=== PATIENT | female | born 1940 | race Hispanic/Latino ===

== ENCOUNTER 2016-12-15 19:21 | Inpatient (IN) | payer MEDICARE, MEDICAID ==
[2016-12-15 19:29] VITALS: BMI 27.4
[2016-12-15] MEDS ORDERED: Sodium Chloride 0.9% 1,000 ML IV STA ×2 (19:58→23:38)
--- NOTE | 2016-12-15 20:06 | ED PDOC ---
Arrival/HPI - General Chief Complaint: GI Problem Time Seen by Provider: 12/15/16 19:40 Historian: Patient - History of Present Illness Narrative History of Present Illness (Text): 12/15/16 20:01 76 year old female whose past medical history includes coronary artery disease s /p CABG, COPD, hypertension presents to the emergency department with complaint of generalized malaise for the past few days, nausea, vomiting, and diarrhea. Patient states she began experiencing some chills,subjective fever and flu-like symptoms 5 days ago, was placed on Zithromax by PMD. Pt. stopped taking the antibiotics stating she could not tolerate them. Patient presents now for further evaluation. Denies any chest pain or shortness of breath or abdominal pain. No urinary complaints. Time/Duration: < week Symptom Onset: Gradual Symptom Course: Unchanged Past Medical History - Provider Review Nursing Documentation Reviewed: Yes - Infectious Disease Hx of Infectious Diseases: None - Reproductive Menopause: Yes - Cardiac Hx Cardiac Disorders: Yes Hx Hypertension: Yes Hx Peripheral Vascular Disease: Yes (variscosities to right foot) Other/Comment: pci, + stress test, triple bypass surgery - Pulmonary Hx Asthma: Yes Hx Chronic Obstructive Pulmonary Disease (COPD): Yes Hx Emphysema: Yes Hx Pneumonia: Yes - Neurological Hx Paralysis: No - HEENT Hx Cataracts: Yes (cataract sx both eyes 20 yrs ago) - Hematological/Oncological Hx Blood Transfusions: No Hx Blood Transfusion Reaction: No - Musculoskeletal/Rheumatological Hx Back Pain: Yes Hx Falls: No Other/Comment: lumbar herniation - Gastrointestinal Hx Gastroesophageal Reflux: Yes Other/Comment: colon polyps - Genitourinary/Gynecological Hx Genitourinary Disorders: No - Psychiatric Hx Emotional Abuse: No Hx Physical Abuse: No Hx Substance Use: No - Surgical History Hx Hysterectomy: Yes (pt was 38 yrs old) Other/Comment: Triple Bypass surgery - Anesthesia Hx Anesthesia: Yes Hx Anesthesia Reactions: No - Suicidal Assessment Feels Threatened In Home Enviroment: No Family/Social History - Physician Review Nursing Documentation Reviewed: Yes Family/Social History: Unknown Family HX Smoking Status: Former Smoker Hx Alcohol Use: No Hx Substance Use: No Hx Substance Use Treatment: No Allergies/Home Meds Allergies/Adverse Reactions: Allergies aspirin Adverse Reaction (Verified 12/15/16 19:30) WHEEZING Home Medications: Home Meds Medication Instructions Recorded Confirmed Albuterol Sulfate [Proair Hfa] 0.09 mg IH PRN PRN 11/08/12 12/15/16 Arformoterol Tartrate [Brovana] 1 alfie IH BID 11/08/12 12/15/16 Atorvastatin Calcium [Lipitor] 20 mg PO DAILY 11/08/12 12/15/16 Beclomethasone Dipropionate [Qvar] 1 puff IH BID 11/08/12 12/15/16 Dexlansoprazole [Dexilant] 60 mg PO DAILY 11/08/12 12/15/16 Escitalopram Oxalate [Lexapro] 10 mg PO DAILY 11/08/12 12/15/16 Hydrochlorothiazide/Valsarta 1 tab PO DAILY 11/15/12 12/15/16 [Diovan Hct 12.5 mg-80 mg] Tiotropium [Spiriva] 18 mcg IH DAILY 11/15/12 12/15/16 Albuterol HFA [Ventolin HFA 90 1 puff IH PRN PRN 12/15/16 12/15/16 mcg/actuation (8 g)] Beclomethasone Dipropionate [Qvar 1 puff IH PRN PRN 12/15/16 12/15/16 40 mcg] Review of Systems - Physician Review All systems were reviewed & negative as marked: Yes - Review of Systems Constitutional: Other (Generalized malaise, chills). absent: Fevers ENT: Other (Flu-like symptoms) Respiratory: absent: SOB Cardiovascular: absent: Chest Pain Gastrointestinal: absent: Abdominal Pain Genitourinary Female: absent: Dysuria, Frequency, Hematuria Physical Exam Vital Signs Reviewed: Yes Vital Signs Temp Pulse Resp BP Pulse Ox 12/15/16 19:30 98.7 F 80 19 110/68 92 L Temperature: Afebrile Blood Pressure: Normal Pulse: Regular Respiratory Rate: Normal Appearance: Positive for: Well-Appearing, Non-Toxic, Comfortable Pain Distress: None Mental Status: Positive for: Alert and Oriented X 3 - Systems Exam Head: Present: Atraumatic, Normocephalic Pupils: Present: PERRL Extroacular Muscles: Present: EOMI Conjunctiva: Present: Normal Mouth: Present: Moist Mucous Membranes Pharnyx: Present: Normal. No: ERYTHEMA, EXUDATE Nose (External): Present: Atraumatic Nose (Internal): Present: Normal Inspection Neck: Present: Normal Range of Motion, Other (Supple) Respiratory/Chest: Present: Clear to Auscultation, Good Air Exchange. No: Respiratory Distress, Accessory Muscle Use Cardiovascular: Present: Regular Rate and Rhythm, Normal S1, S2. No: Murmurs Abdomen: Present: Normal Bowel Sounds. No: Tenderness, Distention, Peritoneal Signs Back: Present: Normal Inspection Upper Extremity: Present: Normal Inspection. No: Cyanosis, Edema Lower Extremity: Present: Normal Inspection. No: Edema Neurological: Present: GCS=15, CN II-XII Intact, Speech Normal Skin: Present: Warm, Dry, Normal Color. No: Rashes Psychiatric: Present: Alert, Oriented x 3, Normal Insight, Normal Concentration Medical Decision Making ED Course and Treatment: Impression: 76 year old female whose past medical history includes coronary artery disease s/p CABG, COPD, hypertension presents to the emergency department with complaint of generalized malaise for the past few days, nausea, vomiting, and diarrhea. Plan: -- EKG, Chest X-ray -- Pepcid, Reglan -- IV fluids -- Labs -- Reassess and disposition Progress Notes: 12/15/16 21:25 Reviewed radiology, Chest X-ray shows right-sided infiltrate. 12/15/16 22:[address] Mullen, who is aware and agrees with plan. Accepts pt in to his service. Pt will be admitted to [facility] for pneumonia and gastroenteritis. Requests Dr. Evans on consult. - Lab Interpretations Lab Results: 12/15/16 20:30 12/15/16 20:30 Lab Results 12/15/16 20:30: WBC 5.5, RBC 4.12, Hgb 12.3, Hct 36.5, MCV 88.6, MCH 29.9, MCHC 33.7, RDW 14.7 H, Plt Count 166, MPV 10.0 12/15/16 20:30: Sodium 135, Potassium 3.3 L, Chloride 94 L, Carbon Dioxide 29, Anion Gap 15, BUN 19, Creatinine 1.1, Est GFR ( Amer) 59, Est GFR (Non- Af Amer) 48, Random Glucose 106, Calcium 9.1, Total Bilirubin 1.2, AST 46 H, ALT 41, Alkaline Phosphatase 72, Total Protein 7.3, Albumin 3.8, Globulin 3.5, Albumin/Globulin Ratio 1.1, Lipase 169 12/15/16 20:30: Influenza Typ A,B (EIA) Negative for flu a/b I have reviewed the lab results: Yes - RAD Interpretation Radiology Orders: 12/15/16 19:57 CHEST PORTABLE [RAD] Stat Scientific Recruiter: ED Physician - EKG Interpretation EKG Interpretation (Text): EKG shows NSR at 63 BPM with right bundle branch block, LAHB, nonspecific ST wave changes, unchanged from previous October 2012. Interpreted by me. Interpreted by ED Physician: Yes Type: 12 lead EKG - Medication Orders Current Medication Orders: Sodium Chloride (Sodium Chloride 0.9%) 1,000 mls @ 100 mls/hr IV .Q10H STA Stop: 12/16/16 09:37 Ondansetron HCl (Zofran Inj) 4 mg IVP Q6H PRN PRN Reason: Nausea/Vomiting Stop: 12/16/16 11:00 Discontinued Medications Famotidine (Pepcid) 20 mg IVP STAT STA Stop: 12/15/16 19:59 Last Admin: 12/15/16 20:43 Dose: 20 mg Sodium Chloride (Sodium Chloride 0.9%) 1,000 mls @ 999 mls/hr IV .Q1H1M STA Stop: 12/15/16 20:58 Last Admin: 12/15/16 20:42 Dose: 999 mls/hr Ceftriaxone Sodium (Rocephin 1 Gram Ivpb) 1 gm in 100 mls @ 200 mls/hr IV ONCE STA PRN Reason: Protocol Stop: 12/15/16 21:56 Last Admin: 12/15/16 23:32 Dose: 200 mls/hr Azithromycin (Zithromax 500mg In Ns) 500 mg in 250 mls @ 166.667 mls/hr IV STAT STA PRN Reason: Protocol Stop: 12/15/16 22:56 Metoclopramide HCl (Reglan) 10 mg IVP ONCE ONE Stop: 12/15/16 19:59 Last Admin: 12/15/16 20:43 Dose: 10 mg Potassium Chloride (K-Dur 20 Meq Er Tab) 20 meq PO STAT STA Stop: 12/15/16 21:29 Last Admin: 12/15/16 23:32 Dose: 20 meq - Scribe Statement The provider has reviewed the documentation as recorded by the Gonzalez Tinajero Provider Scribe Attestation: All medical record entries made by the Gonzalez were at my direction and personally dictated by me. I have reviewed the chart and agree that the record accurately reflects my personal performance of the history, physical exam, medical decision making, and the department course for this patient. I have also personally directed, reviewed, and agree with the discharge instructions and disposition. Disposition/Present on Arrival - Present on Arrival Any Indicators Present on Arrival: No History of DVT/PE: No History of Uncontrolled Diabetes: No Urinary Catheter: No (inserted in or) History of Decub. Ulcer: No History Surgical Site Infection Following: None - Disposition Have Diagnosis and Disposition been Completed?: Yes Diagnosis: Pneumonia, Gastroenteritis Disposition: HOSPITALIZED Disposition Time: 23:34 Patient Plan: Admission Patient Problems: Current Active Problems Problem Status Onset Gastroenteritis Acute Pneumonia Acute Condition: STABLE Referrals: Jassi Denise MD [Primary Care Provider] - Follow up with primary
[2016-12-15 20:40] LABS: HEMATOCRIT 36.5 % (36.0-48.0); MEAN CELL VOLUME 88.6 fL (80.0-105.0); MEAN CORPUSCULAR HEMOGLOBIN 29.9 pg (25.0-35.0); MEAN CORPUSCULAR HGB CONC 33.7 g/dl (31.0-37.0); RED CELL DISTRIBUTION WIDTH 14.7 % (11.5-14.5); WHITE BLOOD COUNT 5.5 10^3/ul (4.5-11.0)
[2016-12-15 20:50] LABS: ALB/GLOB RATIO 1.1 (1.1-1.8); BILIRUBIN,TOTAL 1.2 mg/dL (0.2-1.3); CALCIUM 9.1 mg/dL (8.4-10.5); POTASSIUM 3.3 mmol/L (3.6-5.0); TOTAL PROTEIN 7.3 g/dL (5.8-8.3)
[2016-12-15] MEDS ORDERED: cefTRIAXone 1 gm 1 GM/100 ML BAG IV STA (21:27)
[2016-12-15] MEDS ORDERED: Azithromycin 500MG/NS 250ml 500 MG/250 ML BAG IV STA (21:27)
[2016-12-15] MEDS ORDERED: Potassium Chloride 20 mEq ER Tab PO STA (21:28)
[2016-12-16] MEDS ORDERED: Albuterol-Ipratrop 3 mg / 0.5 (3 ml) UD ONE (01:30)
--- NOTE | 2016-12-16 07:26 | RAD ---
HISTORY: weakness COMPARISON: 11/17/2016 FINDINGS: LUNGS: There is a dense infiltrate in the right upper lobe PLEURA: No significant pleural effusion identified, no pneumothorax apparent. CARDIOVASCULAR: Normal. OSSEOUS STRUCTURES: No significant abnormalities. VISUALIZED UPPER ABDOMEN: Normal. OTHER FINDINGS: None. IMPRESSION: Right upper lobe pneumonia
[2016-12-16] MEDS ORDERED: Albuterol-Ipratrop 3 mg / 0.5 (3 ml) UD IH SCH (08:00)
--- NOTE | 2016-12-16 15:06 | CARD ---
APPROVED REPORT EKG Measurement Heart [id number] IN 144P [id number] <Conclusion> Normal sinus rhythm with sinus arrhythmia Right bundle branch block Left anterior fascicular block Bifascicular block T wave abnormality, consider lateral ischemia Prolonger Qt interval Abnormal ECG
--- NOTE | 2016-12-16 18:37 | CON ---
DATE: 12/16/2016 LOCATION: In 573, bed 2, [facility]. The patient was seen earlier this morning. REASON FOR CONSULTATION: Pneumonia. HISTORY OF PRESENT ILLNESS: We have a 76-year-old female with past medical history of COPD, coronary artery disease, status post coronary artery bypass graft, comes in complaining of nausea, as well as feeling of fatigue for the past 4-5 days, worsening yesterday, associated with subjective chills, bu t no fever. The patient was not complaining of excessive cough, but has intermittent mild cough whic h is nonproductive. The patient denies being on antibiotics in the past few months, has not been hos pitalized recently, either. The patient denies headache or dizziness. No blurring of vision. No ch est pain. Has mild shortness of breath. No abdominal pain. No diarrhea. No hematuria. No dysuria . In the ED, the patient had a chest x-ray which showed a possible infiltrate and infectious disease co nsult is requested to further evaluate and manage. REVIEW OF SYSTEMS: Is as per history of present illness. PAST MEDICAL HISTORY: Is as per history of present illness. FAMILY MEDICAL HISTORY: Is noncontributory. PERSONAL AND SOCIAL HISTORY: The patient denies alcohol abuse or illicit drug use. OBJECTIVE: VITAL SIGNS: The patient is currently afebrile. Blood pressure 135/78, heart rate of 88, respirator y rate of 20. HEAD AND NECK: Normocephalic, atraumatic. No meningismus present. No cervical lymphadenopathy pres ent. LUNGS: Decreased breath sounds bilaterally. HEART: S1 and S2 are normal. ABDOMEN: Soft, nontender, nondistended. LABORATORY DATA: Unfortunately, unable to review the labs on the patient because of the downed [email or web address] system. ASSESSMENT: We have a 76-year-old female with past medical history of chronic obstructive pulmonary disease, coronary artery disease, status post coronary artery bypass graft, presenting with probable right lower lobe community acquired pneumonia. PLAN: We have started the patient on Rocephin and doxycycline pending sputum cultures, blood culture s. We will also order urine Legionella antigen, and will make further recommendations based on the r esults. We may also consider ordering a procalcitonin for this patient. Jett Levine M.D. cc: [id number] TT: 12/16/2016 18:37:20 [facility] # [id number] Dictation # [id number] dn
[2016-12-17] MEDS ORDERED: Albuterol-Ipratrop 3 mg / 0.5 (3 ml) UD IH PRN (07:43)
[2016-12-17 08:10] LABS: HEMATOCRIT 34.6 % (36.0-48.0); MEAN CELL VOLUME 88.9 fL (80.0-105.0); MEAN CORPUSCULAR HEMOGLOBIN 29.6 pg (25.0-35.0); MEAN CORPUSCULAR HGB CONC 33.2 g/dl (31.0-37.0); MEAN PLATELET VOLUME 10.3 fl (7.0-11.0); RED CELL DISTRIBUTION WIDTH 14.9 % (11.5-14.5); WHITE BLOOD COUNT 6.6 10^3/ul (4.5-11.0)
[2016-12-17 08:23] LABS: BLOOD UREA NITROGEN 13 mg/dL (7-21); CALCIUM 9.1 mg/dL (8.4-10.5); CARBON DIOXIDE 29 mmol/L (21-33); CHLORIDE 97 mmol/L (98-107); GFR AFRICAN-AMERICAN > 60; GLUCOSE,RANDOM 91 mg/dL (70-110); POTASSIUM 3.5 mmol/L (3.6-5.0); SODIUM 135 mmol/L (132-148)
--- NOTE | 2016-12-17 08:38 | PN ---
DATE: 12/17/2016 SUBJECTIVE: The patient has no complaints of any chest pain or shortness of breath, no headaches. S he was seen by me yesterday and was not able to write a note because of the computers being down at [facility]. PHYSICAL EXAMINATION: VITAL SIGNS: Temperature is 100.5, pulse is 72, blood pressure 102/33, but may not be accurate. Res pirations 18. GENERAL: The patient comfortable, in no acute distress. HEENT: Anicteric sclerae. Moist mucosa. NECK: No JVD or adenopathy. CARDIAC: S1/S2. No murmurs. No rubs. Regular. RESPIRATORY: Clear to auscultation bilaterally. No wheezes, rales, or rhonchi. Good air entry. ABDOMEN: Bowel sounds are positive, soft, nontender, and nondistended. EXTREMITIES: No edema. Has 1+ pulses. LABS: Creatinine is 1.3. ASSESSMENT: 1. Community-acquired pneumonia. 2. Dyslipidemia. 3. Hypertension. 4. Chronic obstructive pulmonary disease. PLAN: The patient is currently comfortable. He is going to be on doxycycline and Rocephin for antib iotics. The patient is going to continue with current regimen. She says she is feeling a bit better . She is not having any nausea. She is on DuoNeb treatments. Michael Mullen MD cc: [id number] TT: 12/17/2016 08:37:02 Confirmation # [id number] Dictation # [id number] [employer]
[2016-12-17] MEDS: cefTRIAXone 1 gm in NS 100ml IVPB SCH (09:20)
[2016-12-17] MEDS: Tiotropium 18 mcg Cap For Inhalation IH SCH ×2 (09:21→10:58)
--- NOTE | 2016-12-17 09:52 | HP ---
This is a 76-year-old female who is coming into the hospital because of diarrhea and nausea. She had initially come to see me in the office about 5 days ago. The patient was having flu-like symptoms o f fever. She was given antibiotics by me and had nausea and diarrhea. I spoke to her on the phone a nd advised her to discontinue the azithromycin; it is most likely secondary to the antibiotics. She says that she continues to decline, so she came in for further evaluation. She says she feels weak. She has not been able to eat well. She has no headaches or dizziness. No fever. No weakness in th e arms or the legs. No back pain. REVIEW OF SYSTEMS: All other review of symptoms are within normal limits. She was having cough, con gestion. ALLERGIES: ASPIRIN. HOME MEDICATIONS: She is on ProAir, Brovana, Lipitor, QVAR, Dexilant, Lexapro, Diovan/hydrochlorothi azide, Spiriva, Ventolin, beclomethasone. PAST MEDICAL HISTORY: Dyslipidemia, hypertension, varicose veins, back pain, osteoarthritis. PAST SURGICAL HISTORY: Hysterectomy. SOCIAL HISTORY: She is a former smoker. She denies alcohol or drug use. FAMILY HISTORY: Noncontributory. PHYSICAL EXAMINATION: VITAL SIGNS: Temperature is 98.7, pulse of 80, blood pressure is 110/68, respirations 19, O2 saturat ion 92%. GENERAL: Patient lying in bed, flat, and in no apparent distress. HEAD AND NECK EXAM: Atraumatic, normocephalic. Conjunctivae are pink. Throat clear and mouth with moist mucosa. Oropharynx benign. EYES: Extraocular movements are intact. PERRLA. NECK: Supple. No JVD, thyromegaly, or adenopathy. No bruits. HEART: S1 and S2 regular rate and rhythm. No murmurs, rubs, or gallops. LUNGS: Clear to auscultation bilaterally. No wheezing rales or rhonchi appreciated. No retraction s on exam. ABDOMEN: Soft, nontender, nondistended. Bowel sounds are positive in all quadrants. No rebound. No hepatosplenomegaly. EXTREMITIES: No cyanosis, clubbing, or edema. NEURO: No facial asymmetry, tongue is midline, no uvula deviation. Power is 5/5 in upper extremity and 5/5 in lower extremity. Sensation is normal in upper extremity and lower extremity. PSYCH: Awake, alert, oriented x3. No anxiety or depression symptoms. Good insight. Normal affec t. : No CVA tenderness VASCULAR: 2+ pulses in carotid and pedal pulses. SKIN: No erythema or abnormal nodules noted. SPINE: Normal curvature. LYMPHADENOPATHY: No anterior cervical or posterior cervical adenopathy. No inguinal adenopathy. Chest x-ray shows right-sided infiltrate. LABORATORY DATA: White count 5.5, hemoglobin 12.3, potassium is 3.3, creatinine is 1.1. ASSESSMENT: 1. Community-acquired pneumonia, failed outpatient management. 2. Gastroenteritis secondary to antibiotics. 3. Hypertension. 4. Dyslipidemia. 5. Chronic obstructive pulmonary disease. PLAN: The patient is currently on losartan for hypertension. The patient has pneumonia, so she has been started on ceftriaxone for antibiotics. She was given IV fluids. She is being followed by infe ctious disease with Dr. Evans. I did speak to Dr. Levine yesterday. The patient is on Lexapro f or anxiety. She is on Lipitor for dyslipidemia. She is on a heart healthy diet. We will continue t o follow the patient. Michael Mullen MD cc: [id number] TT: 12/17/2016 09:47:17 12/17/2016 08:50:46
[2016-12-17] MEDS ORDERED: Arformoterol 15 mcg/2 ml Inh Sol IH SCH ×2 (10:00)
--- NOTE | 2016-12-17 10:38 | IP.NPCORE ---
Pneumonia Progress Notes - Oxygenation Assessment (REQUIRED) Oxygen Delivery Method: Room Air Date: 12/17/16 Documented P02: Yes - Blood Cultures (REQUIRED) Culture drawn: Yes Date:: 12/15/16 Time:: 23:47 - Initial Antibiotic Initial Antibiotic given within Four Hours:: Yes - Appropriate Antibiotic Appropriate Antibiotic within 24 hours of Admission:: Yes - Pneumonia Vaccine Pneumonia Vaccine: No (will be offered prior to discharge ) - Smoking Cessation Smoking Cessation counseling provided:: Yes Ex-Smoker (has not smoked in the last 12 months): No Current Smoker - smoking cessation education provided: No
[2016-12-17] MEDS: BECLOMETHASONE DIPROPIONATE IH SCH ×2 (13:39→17:15)
[2016-12-17] MEDS ORDERED: MethylPREDNISolone 40 mg Vial IVP ONE (18:35)
[2016-12-17] MEDS: Arformoterol 15 mcg/2 ml Inh Sol IH SCH (20:20)
--- NOTE | 2016-12-17 22:31 | CP.PCM.PN ---
Subjective - Date & Time of Evaluation Date of Evaluation: 12/17/16 Time of Evaluation: 10:35 - Subjective Subjective: Still having wheezing but breathing better, no nausea, no fevers overnight. Objective - Vital Signs/Intake and Output Vital Signs (last 24 hours): Temp Pulse Resp BP Pulse Ox 98.0 F 72 18 95/55 L 92 L 12/17/16 15:47 12/17/16 15:47 12/17/16 15:47 12/17/16 15:47 12/17/16 15:47 Intake and Output: 12/17/16 12/18/16 18:59 06:59 Intake Total 600 120 Balance 600 120 - Medications Medications: Current Medications Albuterol/Ipratropium (Duoneb 3 Mg/0.5 Mg (3 Ml) Ud) 3 ml IH TIDRESP PRN PRN Reason: Shortness of Breath Arformoterol Tartrate (Brovana) 15 mcg IH [id number] [facility] Last Admin: 12/17/16 20:20 Dose: 15 mcg Atorvastatin Calcium (Lipitor) 20 mg PO HS [facility] Doxycycline Hyclate (Doryx) 100 mg PO Q12 [facility] Last Admin: 12/17/16 09:20 Dose: 100 mg Escitalopram Oxalate (Lexapro) 10 mg PO DAILY [facility] Last Admin: 12/17/16 09:21 Dose: Not Given Hydrochlorothiazide (Microzide) 12.5 mg PO DAILY [facility] Last Admin: 12/17/16 09:20 Dose: 12.5 mg Ceftriaxone Sodium (Rocephin 1 Gram Ivpb) 1 gm in 100 mls @ 100 mls/hr IVPB DAILY [facility] Last Admin: 12/17/16 09:20 Dose: 100 mls/hr Losartan Potassium (Cozaar) 50 mg PO DAILY [facility] Last Admin: 12/17/16 09:21 Dose: 50 mg Methylprednisolone (Solu-Medrol) 40 mg IVP DAILY [facility] Non-Formulary Medication (Beclomethasone Dipropionate [Qvar]) 1 puff IH BID [facility] Last Admin: 12/17/16 17:15 Dose: Not Given Ondansetron HCl (Zofran Inj) 4 mg IVP Q4H PRN PRN Reason: Nausea/Vomiting Tiotropium [place] (Spiriva) 18 mcg IH DAILY [facility] Last Admin: 12/17/16 10:58 Dose: Not Given - Labs Labs: 12/17/16 06:29 12/17/16 07:20 - Constitutional Appears: Non-toxic, No Acute Distress - Head Exam Head Exam: NORMAL INSPECTION - ENT Exam ENT Exam: Mucous Membranes Moist - Neck Exam Neck Exam: absent: Lymphadenopathy, Meningismus - Respiratory Exam Respiratory Exam: Decreased Breath Sounds - Cardiovascular Exam Cardiovascular Exam: +S1, +S2 - GI/Abdominal Exam GI & Abdominal Exam: Soft. absent: Tenderness Assessment and Plan - Assessment and Plan (Free Text) Plan: Assessment right upper lobe community-acquired pneumonia, slowly improving COPD CAD S/P CABG HTN Plan continue rocephin and Doxycycline day 2 to complete a 5-7 day course; if she continues to improve and be afebrile tomorrow, may consider switching to PO antibiotics will monitor clinically
[2016-12-18] MEDS: Arformoterol 15 mcg/2 ml Inh Sol IH SCH ×2 (08:34→19:25)
[2016-12-18] MEDS: MethylPREDNISolone 40 mg Vial IVP SCH (10:09)
[2016-12-18] MEDS: BECLOMETHASONE DIPROPIONATE IH SCH ×2 (10:10→17:54)
[2016-12-18] MEDS: Tiotropium 18 mcg Cap For Inhalation IH SCH (10:11)
[2016-12-18] MEDS: cefTRIAXone 1 gm in NS 100ml IVPB SCH (10:11)
[2016-12-18] MEDS: Pantoprazole 40 mg EC Tab PO SCH (10:12)
--- NOTE | 2016-12-18 12:56 | CP.PCM.PN ---
Subjective - Date & Time of Evaluation Date of Evaluation: 12/18/16 Time of Evaluation: 10:55 - Subjective Subjective: Comfortable in bed, breathing better, no nausea, no more cough, no fevers. Objective - Vital Signs/Intake and Output Vital Signs (last 24 hours): Temp Pulse Resp BP Pulse Ox 98 F 75 20 115/75 96 12/18/16 08:00 12/18/16 10:23 12/18/16 08:00 12/18/16 10:23 12/18/16 08:00 Intake and Output: 12/18/16 12/18/16 06:59 18:59 Intake Total 120 Balance 120 - Medications Medications: Current Medications Albuterol/Ipratropium (Duoneb 3 Mg/0.5 Mg (3 Ml) Ud) 3 ml IH TIDRESP PRN PRN Reason: Shortness of Breath Amiodarone HCl (Cordarone) 200 mg PO DAILY [facility] Last Admin: 12/18/16 10:10 Dose: 200 mg Arformoterol Tartrate (Brovana) 15 mcg IH [id number] [facility] Last Admin: 12/18/16 08:34 Dose: 15 mcg Atorvastatin Calcium (Lipitor) 20 mg PO HS [facility] Last Admin: 12/17/16 22:44 Dose: 20 mg Clopidogrel Bisulfate (Plavix) 75 mg PO DAILY [facility] Last Admin: 12/18/16 10:12 Dose: 75 mg Doxycycline Hyclate (Doryx) 100 mg PO Q12 [facility] Last Admin: 12/18/16 10:11 Dose: 100 mg Hydrochlorothiazide (Hydrodiuril) 25 mg PO DAILY [facility] Last Admin: 12/18/16 10:12 Dose: 25 mg Ceftriaxone Sodium (Rocephin 1 Gram Ivpb) 1 gm in 100 mls @ 100 mls/hr IVPB DAILY [facility] Last Admin: 12/18/16 10:11 Dose: 100 mls/hr Methylprednisolone (Solu-Medrol) 40 mg IVP DAILY [facility] Last Admin: 12/18/16 10:09 Dose: 40 mg Metoprolol Tartrate (Lopressor) 50 mg PO BID [facility] Last Admin: 12/18/16 10:23 Dose: 50 mg Non-Formulary Medication (Beclomethasone Dipropionate [Qvar]) 1 puff IH BID [facility] Last Admin: 12/18/16 10:10 Dose: Not Given Montelukast [ Singulair] 4 Mg ( Home Med) 4 mg PO HS [facility] Ondansetron HCl (Zofran Inj) 4 mg IVP Q4H PRN PRN Reason: Nausea/Vomiting Pantoprazole Sodium (Protonix Ec Tab) 40 mg PO 0730 [facility] Last Admin: 12/18/16 10:12 Dose: 40 mg Tiotropium [place] (Spiriva) 18 mcg IH DAILY [facility] Last Admin: 12/18/16 10:11 Dose: 18 mcg - Labs Labs: 12/17/16 06:29 12/17/16 07:20 - Constitutional Appears: Non-toxic, No Acute Distress - Head Exam Head Exam: NORMAL INSPECTION - ENT Exam ENT Exam: Mucous Membranes Moist - Neck Exam Neck Exam: absent: Lymphadenopathy, Meningismus - Respiratory Exam Respiratory Exam: Decreased Breath Sounds - Cardiovascular Exam Cardiovascular Exam: +S1, +S2 - GI/Abdominal Exam GI & Abdominal Exam: Soft. absent: Tenderness Assessment and Plan - Assessment and Plan (Free Text) Plan: Assessment right upper lobe community-acquired pneumonia, slowly improving COPD CAD S/P CABG HTN Plan continue rocephin and Doxycycline day 3 to complete a 5-7 day course will continue to monitor clinically
--- NOTE | 2016-12-18 13:11 | PN ---
DATE: 12/18/2016 SUBJECTIVE: The patient said that she was having nausea yesterday, no vomiting. She denies any abdo jian pain, no vomiting. She says the nausea is somewhat better this morning. PHYSICAL EXAMINATION: VITAL SIGNS: Temperature 98, pulse is 75, blood pressure 115/75, respirations 20. GENERAL: The patient comfortable, in no acute distress. HEENT: Anicteric sclerae. Moist mucosa. NECK: No JVD or adenopathy. CARDIAC: S1/S2. No murmurs. No rubs. Regular. RESPIRATORY: Clear to auscultation bilaterally. No wheezes, rales, or rhonchi. Good air entry. ABDOMEN: Bowel sounds are positive, soft, nontender, and nondistended. EXTREMITIES: No edema. Has 1+ pulses. LABORATORY DATA: White count of 6.6, hemoglobin 11.5, potassium 3.5. ASSESSMENT: 1. Community-acquired pneumonia. 2. Dyslipidemia. 3. Hypertension. 4. Chronic obstructive pulmonary disease. PLAN: The patient is currently comfortable on amiodarone, this will be continued. She did not menti on that she was on amiodarone before. Pharmacy is called to get an updated list of her medication. She is on Singulair but we do not have that on formulary at the dosage that she is on. She has advis ed to bring it from home and her other medications that she requires that are not on the formulary in hospital. She is on Lipitor for dyslipidemia. She is on hydrochlorothiazide. She is on Plavix. S he is going to be on Spiriva for her COPD. She is on Zofran as needed. She is going to be seen by Rubin Burr. I did speak to Dr. Mendosa been regarding the case. Michael Mullen MD cc: [id number] TT: 12/18/2016 13:09:50 Confirmation # [id number] Dictation # [id number] jn
--- NOTE | 2016-12-18 18:05 | CON ---
DATE: 12/18/2016 HISTORY OF PRESENT ILLNESS: The patient is 76 years old. She came to the hospital after being treated as an outpatient for presumed pneumonia. When she failed to improve she was admitted for further evaluation and symptoms. I had last seen the patient approximately a week ago. At that time, she had no complaints whatsoever. Her COPD had been stable. She was continuing on her medications of Brovana, budesonide and Spiriva. After that visit several days later, she began to develop flu-like symptoms and was seen by her primary doctor , Dr. Mullen, and subsequently admitted when she failed to improve on erythromycin. She had developed diarrhea, vomiting and had terrible generalized side effects from the erythromycin based medication. PAST MEDICAL HISTORY: As above, COPD, history of hypertension, leg varicosities osteoarthritis, dyslipidemia. SOCIAL HISTORY: She used to smoke for many years. She has no alcohol or drug abuse. There is no travel history. FAMILY HISTORY: Coronary artery disease and hypertension. ALLERGIES: ASPIRIN. HOME MEDICATIONS: Described above, ProAir as an emergency, Brovana and Qvar due to drug formulary problems. She was on Spiriva but had to be changed to Incruse due to the pharmacy recommendations as well. REVIEW OF SYSTEMS: Is the same as described above. There were no additional problems of note. There is a history in the past of severe osteoarthritis, leg vein abnormalities, lower back pain and hypertension. She is status post hysterectomy. Pt with dyspnea and productive cough. All other systems negative. PHYSICAL EXAMINATION: VITAL SIGNS: She remains comfortable now, afebrile, in no acute respiratory distress. Heart rate 80, blood pressure 120/70, respiratory rate 16, O2 saturation on room air at this time is 98%. GENERAL: Well-developed, well- nourished, in no acute distress. HEENT: Normocephalic, atraumatic. NECK: No bruits. No jugular venous distention, no mass, no lymphadenopathy. EYES: PERRLA. EOMs full. Conjunctivae pink. HEART: Regular rhythm, S1, S2 without murmur, gallop or rub. CHEST: Scattered rhonchi and wheezes throughout both lung chaidez. There is increased AP diameter, but no real respiratory insufficiency at this time. ABDOMEN: Soft, bowel sounds normoactive without mass, guarding, rebound or organomegaly. EXTREMITIES: Reveal no clubbing, cyanosis or edema. There is no Homans sign. NEUROLOGIC: Normal. Motor, sensory and coordination normal. Babinski is downgoing. Deep tendon reflexes normal. LYMPHATICS: Lymphadenopathy is not present in the supraclavicular notch nor in the cervical, inguinal or axillary areas. LABORATORY STUDIES: 1. Chest x-ray shows a dense right-sided pulmonary infiltrate, no additional pathology other than hyperinflation. 2. Laboratory studies with low potassium and low white count. Potassium has been corrected since admission and the white count remains stable. 3. EKG states normal sinus rhythm, nonspecific ST-T wave changes. CLINICAL IMPRESSION: 1. Community-acquired pneumonia. 2. Chronic obstructive pulmonary disease. 3. Bullous emphysema. 4. Additional medical problems such as gastroenteritis from recent antibiotic coverage. PLAN: Continue current antibiotics. Change her bronchodilators to include Spiriva and Brovana, which she is used to. Continue antibiotic coverage. Follow up x-ray in 1-2 days. Thank you for the opportunity to follow this pamela patient. We hope that things improve and she feels better in a timely manner. Davide Mendosa MD cc: [id number] TT: 12/18/2016 18:05:10 Confirmation # [id number] Dictation # [id number] [place] MTDRubin
[2016-12-18] MEDS: MONTELUKAST 4 MG PO SCH (21:36)
[2016-12-19] MEDS: Arformoterol 15 mcg/2 ml Inh Sol IH SCH ×2 (07:48→19:58)
--- NOTE | 2016-12-19 09:34 | CON ---
DATE: 12/18/2016 This patient was seen and evaluated earlier today. Discussed with the nursing staff. This 76-year-old patient was initially admitted to the hospital for complaints of nausea, vomiting, history of diarrhea. The patient initially had flu-like symptoms, was given antibiotics, Zithromax. Because patient continued to complain of nausea, has another episode of vomiting. OTHER PAST MEDICAL HISTORY: Significant for as above. Otherwise positive for dyslipidemia, hypertension, varicose veins, back pain. ALLERGIES: ASPIRIN. PAST SURGICAL HISTORY: Significant for hysterectomy. REVIEW OF SYSTEMS: Positive as above. All the systems reviewed. FAMILY HISTORY: Noncontributory. PHYSICAL EXAMINATION: GENERAL: The patient is lying on the bed, not in acute distress. HEENT: Anicteric. LUNGS: Bilateral air entry present, few scattered rhonchi present. HEART: S1, S2 heard. ABDOMEN: Soft. There is mild tenderness on deep palpation in the epigastric area. NEUROLOGIC: Alert, oriented. Moves all the extremities. LABORATORY DATA: Hemoglobin 11.5, hematocrit , WBC 6.6, platelets 156. BUN 135, potassium 3.5. LFTs showed mildly elevated AST of . IMPRESSION: This 76-year-old patient admitted with upper respiratory infection , admitted with pneumonia. The patient has nausea and diarrhea. Presently on doxycycline and also ceftriaxone. Would recommend at this point continuing the PPI. Continue clear liquid diet, advance to soft low residue diet if the patient is tolerating. The patient is on Protonix 40 mg daily. We will continue that. Thank you very much for allowing us to participate in the care of the patient. Rubio Burr MD cc: [id number] TT: 12/19/2016 09:33:29 Confirmation # [id number] Dictation # [id number] en MTDD
[2016-12-19] MEDS: BECLOMETHASONE DIPROPIONATE IH SCH ×2 (10:04→17:18)
[2016-12-19] MEDS: Tiotropium 18 mcg Cap For Inhalation IH SCH (10:11)
[2016-12-19] MEDS: MethylPREDNISolone 40 mg Vial IVP SCH (10:13)
[2016-12-19] MEDS: Pantoprazole 40 mg EC Tab PO SCH (10:14)
[2016-12-19] MEDS: cefTRIAXone 1 gm in NS 100ml IVPB SCH ×2 (10:14→10:21)
--- NOTE | 2016-12-19 11:43 | CON ---
DATE: 12/19/2016 PULMONARY 573, bed 2. SUBJECTIVE: The patient is feeling markedly better, is able to get out of bed and walk around without dyspnea. She continues to improve with her breathing and her strength. She is ambulatory once again. Please note, the patient's x-ray done this morning has not officially been done yet. The infiltrate seen on her initial presentation does seem to have improved slightly. The area is a bit larger, but it is less dense. She will still need continued antibiotic therapy. PHYSICAL EXAMINATION: GENERAL: She is afebrile, comfortable, in no acute respiratory distress. VITAL SIGNS: Stable. Respiratory rate is 16. HEENT: Normocephalic, atraumatic. NECK: Supple. EYES: PERRLA. EOMs full. HEART: Regular rhythm, S1, S2 without murmur, gallop, or rub. CHEST: There are still scattered rhonchi throughout the right upper lobe. The left side sounds are improved today. There is no longer any wheezing appreciated. ABDOMEN: Soft. Bowel sounds normoactive without mass, guarding, or rebound. NEUROLOGIC: Normal. LYMPHATICS: No lymphadenopathy. LABORATORY STUDIES: Discussed the chest x-ray above. CLINICAL IMPRESSION: 1. Community-acquired pneumonia. 2. Chronic obstructive pulmonary disease, stable, bullous emphysema, stable. PLAN: Would continue antibiotic coverage. Continue bronchodilators with Spiriva (LAMA). Would repeat CBC and see if the patient can be discharged in the immediate future. I prefer not to prolong hospitalization, as the potential of getting hospital-acquired infections is real. The patient is seen , as well enough to be discharged shortly. We will need to exchange mechanic to p.o. medications before that occurs. I will discuss my findings with Dr. Hameed who will take over in the morning. Davide Mendosa MD cc: [id number] TT: 12/19/2016 11:42:20 Confirmation # [id number] Dictation # [id number] jn PREMA
--- NOTE | 2016-12-19 11:54 | PN ---
DATE: 12/19/2016 SUBJECTIVE: The patient has no complaints of any chest pain, no shortness of breath. She says her n ausea is better. She is able to tolerate her diet this morning. PHYSICAL EXAMINATION: VITAL SIGNS: Temperature is 97.8, pulse of 60, blood pressure is 108/56, respirations 20. GENERAL: The patient comfortable, in no acute distress. HEENT: Anicteric sclerae. Moist mucosa. NECK: No JVD or adenopathy. CARDIAC: S1/S2. No murmurs. No rubs. Regular. RESPIRATORY: Clear to auscultation bilaterally. No wheezes, rales, or rhonchi. Good air entry. ABDOMEN: Bowel sounds are positive, soft, nontender, and nondistended. EXTREMITIES: No edema. Has 1+ pulses. LABORATORIES: Potassium is 3.5. ASSESSMENT: 1. Nausea and vomiting, improved. 2. Community-acquired pneumonia. 3. Dyslipidemia. 4. Hypertension. 5. Chronic obstructive pulmonary disease, acute. PLAN: The patient is currently comfortable. Her nausea is improved. She had her diet advanced. A repeat chest x-ray has been done. She is clinically improving. The patient is on her blood pressure medication with hydrochlorothiazide. She is on day #4 out of 5 of antibiotics. She is on Protonix. She is receiving Lipitor for dyslipidemia. She is on Zofran as needed. Michael Mullen MD cc: [id number] TT: 12/19/2016 11:53:30 Confirmation # [id number] Dictation # [id number] en
--- NOTE | 2016-12-19 12:32 | RAD ---
HISTORY: pneumonia COMPARISON: 12/15/2016 TECHNIQUE: Chest PA and lateral FINDINGS: LUNGS: Right upper lobe infiltrate unchanged in extent. No other infiltrate identified. PLEURA: No significant pleural effusion identified. No pneumothorax apparent. CARDIOVASCULAR: Normal. OSSEOUS STRUCTURES: No significant abnormalities. VISUALIZED UPPER ABDOMEN: Normal. OTHER FINDINGS: None. IMPRESSION: Persistent right upper lobe infiltrate, unchanged.
--- NOTE | 2016-12-19 17:22 | PN ---
DATE: 12/19/2016 This patient was seen and evaluated earlier. The patient is tolerating the diet. No complaints at the moment. PHYSICAL EXAMINATION: VITAL SIGNS: Temperature is 97.7, blood pressure is 125/65, pulse 65. HEENT: Atraumatic, anicteric. NECK: Supple. HEART: S1, S2 heard. LUNGS: Bilateral air entry present. ABDOMEN: Soft. No mass palpable. No tenderness. EXTREMITIES: No edema, no cyanosis. LABORATORY DATA: No recent labs now. IMPRESSION/PLAN: This 76-year-old patient admitted with a pneumonia, has episodes of nausea and vomiting, probably secondary to drug-induced. Now, tolerating the diet on empiric PPI. We will continue the PPI. The patient never had a colonoscopy done. The patient can be electively evaluated if the patient is agreeable. Discussed with the patient at length, who understands. Thank you very much for allowing us to participate in the care of the patient. Rubio Burr MD cc: [id number] TT: 12/19/2016 17:21:18 Confirmation # [id number] Dictation # [id number] en MTDRubin
[2016-12-19 17:37] VITALS: RESP 18
--- NOTE | 2016-12-19 20:04 | CP.PCM.PN ---
Subjective - Date & Time of Evaluation Date of Evaluation: 12/19/16 Time of Evaluation: 12:05 - Subjective Subjective: Patient is for comfortable, less cough and breathing better. Objective - Vital Signs/Intake and Output Vital Signs (last 24 hours): Temp Pulse Resp BP Pulse Ox 98.3 F 65 18 119/66 97 12/19/16 16:00 12/19/16 17:20 12/19/16 16:00 12/19/16 17:20 12/19/16 16:00 Intake and Output: 12/19/16 12/20/16 18:59 06:59 Intake Total 633 Output Total 0 Balance 633 - Medications Medications: Current Medications Albuterol/Ipratropium (Duoneb 3 Mg/0.5 Mg (3 Ml) Ud) 3 ml IH TIDRESP PRN PRN Reason: Shortness of Breath Amiodarone HCl (Cordarone) [address] [facility] Last Admin: 12/19/16 10:19 Dose: 200 mg Arformoterol Tartrate (Brovana) [id number] [facility] Last Admin: 12/19/16 19:58 Dose: 15 mcg Atorvastatin Calcium (Lipitor) [address] [facility] Last Admin: 12/18/16 21:34 Dose: 20 mg Clopidogrel Bisulfate (Plavix) [address] [facility] Last Admin: 12/19/16 10:13 Dose: 75 mg Doxycycline Hyclate (Doryx) [address] [facility] Last Admin: 12/19/16 10:13 Dose: 100 mg Hydrochlorothiazide (Hydrodiuril) [address] [facility] Last Admin: 12/19/16 10:13 Dose: 25 mg Ceftriaxone Sodium (Rocephin 1 Gram Ivpb) 1 gm in 100 mls @ 100 mls/hr IVPB DAILY [facility] Last Admin: 12/19/16 10:21 Dose: 100 mls/hr Methylprednisolone (Medrol) [address] [facility] Last Admin: 12/19/16 17:20 Dose: 12 mg Metoprolol Tartrate (Lopressor) [address] [facility] Last Admin: 12/19/16 17:20 Dose: 50 mg Non-Formulary Medication (Beclomethasone Dipropionate [Qvar]) [address] [facility] Last Admin: 12/19/16 17:18 Dose: Not Given Montelukast [ Singulair] 4 Mg ( Home Med) [address] [facility] Last Admin: 12/18/16 21:36 Dose: Not Given Ondansetron HCl (Zofran Inj) 4 mg IVP Q4H PRN PRN Reason: Nausea/Vomiting Pantoprazole Sodium (Protonix Ec Tab) [address] [facility] Last Admin: 12/19/16 10:14 Dose: 40 mg Tiotropium [place] (Spiriva) [address] [facility] Last Admin: 12/19/16 10:11 Dose: 18 mcg - Labs Labs: 12/17/16 06:29 12/17/16 07:20 - Constitutional Appears: Non-toxic, No Acute Distress - Head Exam Head Exam: NORMAL INSPECTION - Neck Exam Neck Exam: absent: Lymphadenopathy, Meningismus - Respiratory Exam Respiratory Exam: Decreased Breath Sounds - Cardiovascular Exam Cardiovascular Exam: +S1, +S2 - GI/Abdominal Exam GI & Abdominal Exam: Soft. absent: Tenderness Assessment and Plan - Assessment and Plan (Free Text) Plan: Assessment right upper lobe community-acquired pneumonia, slowly improving COPD CAD S/P CABG HTN Plan continue rocephin and Doxycycline day 4 to complete a 5-7 day course will continue to monitor clinically
[2016-12-20] MEDS: MONTELUKAST 4 MG PO SCH (01:40)
--- NOTE | 2016-12-20 07:39 | PN ---
DATE: 12/20/2016 SUBJECTIVE: The patient appears comfortable this morning. She is not short of breath at rest. PHYSICAL EXAMINATION: VITAL SIGNS: Temperature is 98.3, pulse 65, respirations 18, blood pressure 119 /66. Oxygen saturation on room air is 97%. HEENT: Normocephalic, atraumatic. No JVD. CARDIOVASCULAR: Positive S1, S2. No S3. LUNGS: Decreased breath sounds at the bases. Minimal rhonchi. A few tiny expiratory wheezes. EXTREMITIES: No clubbing, cyanosis, or edema. Calves are nontender to palpation. GASTROINTESTINAL: Abdomen is soft, nontender, nondistended. Bowel sounds are positive. SKIN: No acute rash. NEUROLOGIC: Limited at the present time. IMPRESSION: 1. Community-acquired pneumonia. 2. Chronic obstructive pulmonary disease. 3. Coronary artery disease. 4. Mild anemia. PLAN: The patient appears comfortable this morning. She is not short of breath at rest. Her cough is much less. The patient does state to feeling much better overall. On physical exam, only minimal bronchospasm is appreciated. In addition, the oxygen saturation is now 97% on room air. I will continue with the current nebulizer treatments and oral steroids (ordered by Dr. Mendosa). I would continue with the antibiotic coverage as per infectious disease. Input by Dr. Levine is noted. The patient's temperatures have now fully resolved. Clinical status of the patient is certainly improved - compared to the initial presentation. The patient is advised to increase her activity as tolerated. I will discuss the above with Dr. Mullen. Anthony Hameed MD cc: [id number] TT: 12/20/2016 07:38:21 Confirmation # [id number] Dictation # [id number] brenda LLOYD
[2016-12-20] MEDS: Arformoterol 15 mcg/2 ml Inh Sol IH SCH (07:49)
[2016-12-20 09:19] VITALS: BP 147/66; PULSE 55; TEMP 97.3; O2SAT 94
[2016-12-20] MEDS: cefTRIAXone 1 gm in NS 100ml IVPB SCH (09:20)
[2016-12-20] MEDS: Pantoprazole 40 mg EC Tab PO SCH (09:23)
[2016-12-20] MEDS: BECLOMETHASONE DIPROPIONATE IH SCH (09:24)
[2016-12-20] MEDS ORDERED: Pneumococcal 23-Valent Vaccine IM ONE (09:30)
[2016-12-20] MEDS: Tiotropium 18 mcg Cap For Inhalation IH SCH (09:51)
--- NOTE | 2016-12-20 09:59 | DS ---
This is a 76-year-old female who had come in to the hospital because of pneumonia that failed outpati ent treatment. She was having nausea and diarrhea. She had improvement of her symptoms after being given IV antibiotics. She was also having a COPD exacerbation and so she was given nebulizers and st eroids. She has improvement as well. She has no complaints of any headaches, no shortness of breath , no nausea, no vomiting. PHYSICAL EXAMINATION: VITAL SIGNS: Temperature is 97.3, pulse of 55, blood pressure 147/66, respiration is 18. GENERAL: The patient comfortable, in no acute distress. HEENT: Anicteric sclerae. Moist mucosa. NECK: No JVD or adenopathy. CARDIAC: S1/S2. No murmurs. No rubs. Regular. RESPIRATORY: Clear to auscultation bilaterally. No wheezes, rales, or rhonchi. Good air entry. ABDOMEN: Bowel sounds are positive, soft, nontender, and nondistended. EXTREMITIES: No edema. Has 1+ pulses. ASSESSMENT: 1. Community-acquired pneumonia, resolved. 2. Acute chronic obstructive pulmonary disease, improved. 3. Nausea and vomiting, improved. 4. Dyslipidemia. 5. Hypertension. PLAN: The patient is currently comfortable. She is on Brovana. She is going to continue with amiod arone. The patient is on doxycycline for antibiotics. She is on metoprolol. She is going to contin ue with the Protonix. She is on IV steroids. The patient is going to be discharged home to follow u p as an outpatient. Michael Mullen MD cc: [id number] TT: 12/20/2016 09:58:45 brenda
--- NOTE | 2016-12-20 12:08 | PN ---
DATE: 12/20/2016 SUBJECTIVE: Seen and examined at the bedside this morning. She is all dressed , ready to go home. Denies any nausea, vomiting, abdominal pain or overt GI bleed. VITAL SIGNS: Temperature is 97.3, blood pressure 147/66, pulse 55, respirations 18, 94 on room air. LABORATORY DATA: No new labs are noted for today. PHYSICAL EXAMINATION: HEENT: Sclerae are anicteric. NECK: Supple. CARDIAC: S1, S2. LUNGS: With decreased breath sounds, but no rales or wheeze. ABDOMEN: With bowel sounds. Soft, nontender. No rebound, guarding, or organomegaly. EXTREMITIES: No edema. NEUROLOGIC: Awake, alert, and oriented. ASSESSMENT: Resolved pneumonia; patient with resolved nausea and vomiting, may be drug induced; patient also with chronic obstructive pulmonary disease and history of hypertension, dyslipidemia. PLAN: The patient is being discharged home. She will follow up with primary care. Discussed with the patient that she may benefit from an elective outpatient colonoscopy as she has never had one before. The patient was seen and case discussed with Dr. Burr. Lamar PATTERSON cc: [id number] TT: 12/20/2016 11:21:44 Confirmation # [id number] Dictation # [id number] mn MTDD
--- NOTE | 2016-12-20 14:10 | CP.PCM.PN ---
Subjective - Date & Time of Evaluation Date of Evaluation: 12/20/16 Time of Evaluation: 10:35 - Subjective Subjective: Comfortable in bed, breathing is much improved, afebrile overnight. Objective - Vital Signs/Intake and Output Vital Signs (last 24 hours): Temp Pulse Resp BP Pulse Ox 97.3 F L 55 L 18 147/66 94 L 12/20/16 07:30 12/20/16 07:30 12/20/16 07:30 12/20/16 07:30 12/20/16 07:30 Intake and Output: 12/20/16 12/20/16 06:59 18:59 Intake Total 220 Output Total 0 Balance 220 - Labs Labs: 12/17/16 06:29 12/17/16 07:20 - Constitutional Appears: Non-toxic, No Acute Distress - Head Exam Head Exam: NORMAL INSPECTION - ENT Exam ENT Exam: Mucous Membranes Moist - Neck Exam Neck Exam: absent: Lymphadenopathy, Meningismus - Respiratory Exam Respiratory Exam: Decreased Breath Sounds - Cardiovascular Exam Cardiovascular Exam: +S1, +S2 - GI/Abdominal Exam GI & Abdominal Exam: Soft. absent: Tenderness Assessment and Plan - Assessment and Plan (Free Text) Plan: Assessment right upper lobe community-acquired pneumonia, clinically improving COPD CAD S/P CABG HTN Plan continue rocephin and Doxycycline day 5 to complete a 5-7 day course; can be switched to PO antibiotics when ready for discharge
== END 2016-12-20 11:30 | disposition home or self-care (01) | DRG 190 ==
LOC: ED 19:21 → ERH 23:36 → 5RSO 12-16 03:48 → ERH 12-16 03:48
PROVIDERS: ADMIT Internal Medicine Nephrology; ATTEND Internal Medicine Nephrology
PROC: 3E0234Z Introduction of Serum, Toxoid and Vaccine into Muscle, Percutaneous Approach (ICD-10-PCS; principal; 2016-12-20)
DX: J44.0 Chronic obstructive pulmonary disease with (acute) lower respiratory infection (principal); J18.9 Pneumonia, unspecified organism; K52.9 Noninfective gastroenteritis and colitis, unspecified; T36.3X5A Adverse effect of macrolides, initial encounter; I10 Essential (primary) hypertension; E78.5 Hyperlipidemia, unspecified; M54.9 Dorsalgia, unspecified; I83.90 Asymptomatic varicose veins of unspecified lower extremity; M19.90 Unspecified osteoarthritis, unspecified site; I25.10 Atherosclerotic heart disease of native coronary artery without angina pectoris; D64.9 Anemia, unspecified; Z23 Encounter for immunization; Z87.891 Personal history of nicotine dependence; Z95.1 Presence of aortocoronary bypass graft

== ENCOUNTER 2017-03-21 10:43 | Inpatient (IN) | payer MEDICARE, MEDICAID ==
[2017-03-21 10:51] VITALS: BMI 27.9
[2017-03-21] MEDS ORDERED: Albuterol-Ipratrop 3 mg / 0.5 (3 ml) UD IH STA (11:09)
--- NOTE | 2017-03-21 11:13 | ED PDOC ---
Arrival/HPI - General Chief Complaint: Shortness Of Breath Time Seen by Provider: 03/21/17 11:06 Historian: Patient - History of Present Illness Narrative History of Present Illness (Text): 03/21/17 11:01 A 76 year old female whose past medical history includes,coronary artery disease w/CABG, COPD, hypertension, presents to the emergency department with a complaint of 1 month duration shortness of breath and dyspnea on exertion. She denies fevers, chills, headache, chest discomfort, nausea, vomiting, diarrhea or any other complaint. Time/Duration: Other (1 month) Symptom Onset: Sudden Symptom Course: Unchanged Activities at Onset: Rest, Light Context: Home Past Medical History - Provider Review Nursing Documentation Reviewed: Yes - Infectious Disease Hx of Infectious Diseases: None - Cardiac Hx Hypertension: Yes - Pulmonary Hx Asthma: Yes Hx Chronic Obstructive Pulmonary Disease (COPD): Yes - Neurological Hx Paralysis: No - HEENT Hx Cataracts: Yes (cataract sx both eyes 20 yrs ago) - Hematological/Oncological Hx Blood Transfusions: No Hx Blood Transfusion Reaction: No - Musculoskeletal/Rheumatological Hx Arthritis: Yes - Gastrointestinal Hx Gastroesophageal Reflux: Yes Other/Comment: colon polyps - Genitourinary/Gynecological Hx Genitourinary Disorders: No - Psychiatric Hx Emotional Abuse: No Hx Physical Abuse: No Hx Substance Use: No - Surgical History Hx Hysterectomy: Yes (pt was 38 yrs old) Hx Open Heart Surgery: Yes Other/Comment: Triple Bypass surgery - Anesthesia Hx Anesthesia: Yes Hx Anesthesia Reactions: No - Suicidal Assessment Feels Threatened In Home Enviroment: No Family/Social History - Physician Review Nursing Documentation Reviewed: Yes Family/Social History: No Known Family HX Smoking Status: Former Smoker Hx Alcohol Use: No Hx Substance Use: No Hx Substance Use Treatment: No Allergies/Home Meds Allergies/Adverse Reactions: Allergies aspirin Adverse Reaction (Verified 12/15/16 19:30) WHEEZING Home Medications: Home Meds Medication Instructions Recorded Confirmed Arformoterol Tartrate [Brovana] 1 alfie IH BID 11/08/12 03/21/17 Atorvastatin Calcium [Lipitor] 20 mg PO DAILY 11/08/12 03/21/17 Albuterol HFA [Ventolin HFA 90 1 puff IH PRN PRN 12/15/16 03/21/17 mcg/actuation (8 g)] Amiodarone HCl [Pacerone] 200 mg PO DAILY 12/18/16 03/21/17 Clopidogrel [Plavix] 75 mg PO DAILY 12/18/16 03/21/17 Metoprolol Tartrate [Lopressor] 50 mg PO BID 12/18/16 03/21/17 Montelukast [Singulair] 4 mg PO HS 12/18/16 03/21/17 Pantoprazole Sodium [Protonix] 40 mg PO ACB 12/18/16 03/21/17 hydroCHLOROthiazide [Hydrodiuril] 25 mg PO DAILY 12/18/16 03/21/17 Escitalopram [Lexapro] 1 tab PO DAILY 03/21/17 03/21/17 Fluticasone Propionate [Flovent 1 puff IH BID 03/21/17 03/21/17 Hfa] Umeclidinium [place] [Incruse 1 puff IH DAILY 03/21/17 03/21/17 Ellipta] Physical Exam - Physical Exam Narrative Physical Exam (Text): 03/21/17 11:14 - Review of Systems Constitutional: Normal. absent: Fatigue, Weight Change, Fevers Eyes: Normal ENT: Normal Respiratory: (+) SOB, TEJADA. absent: Sputum Cardiovascular: Normal absent: Chest pain, Palpitations, Syncope Gastrointestinal: Normal absent: Abdominal pain, Diarrhea, Nausea, Vomiting Genitourinary: Normal. absent: Dysuria, Frequency, Hematuria Musculoskeletal: Normal. absent: Arthralgias, Back Pain, Neck Pain Skin: Normal Neurological: Normal absent: Focal Weakness Endocrine: Normal Hemo/Lymphatic: Normal Psychiatric: Normal - Physical exam Patient appears age appropriate, speaking full sentences without difficulty - Systems Exam Head: Present: Atraumatic, Normocephalic Pupils: Present: PERRL Extraocular Muscles: Present: EOMI Conjunctiva: Present: Normal Mouth: Present: Moist Mucous Membranes Neck: Present: Normal Range of Motion. No: MIDLINE TENDERNESS, Paraspinal Tenderness Respiratory/Chest: Present: Expiratory wheezing. Diffuse rhonchi. No: Accessory Muscle Use, Tachypnic Cardiovascular: Present: Regular Rate and Rhythm, Normal S1, S2, Peripheral Pulses Present. No: Murmurs Abdomen: Present: Normal Bowel Sounds, No: Tenderness, Peritoneal Signs, Rebound, Guarding, Distention Back: Present: Normal Inspection. No: Midline Tenderness, Paraspinal Tenderness Upper Extremity: Present: Normal Inspection. No: Cyanosis, Edema Lower Extremity: Present: Normal Inspection. No: Edema Neurological: Present: GCS=15, Speech Normal, cranial nerves II through XII fully intact with no cerebellar abnormality, neuro-sensory fully intact. No focal neurological deficits. Skin: Present: Warm, Dry, Normal Color. No: Rashes Lymphatic: Present: OX3, NI, NC Psychiatric: Present: Alert, Oriented x 3, Normal Insight, Normal Concentration Vital Signs Temp Pulse Resp BP Pulse Ox 03/21/17 11:29 20 96 03/21/17 10:44 98.1 F 58 L 19 121/51 L 98 Medical Decision Making ED Course and Treatment: 03/21/17 11:17 Impression: A 76 year old female with a complaint of shortness of breath and TEJADA. On exam, expiratory wheezing and diffuse rhonchi. Differential Diagnosis included but are not limited to: PNA vs. COPD Plan: -- EKG -- Chest X-ray -- Labs -- Duoneb and SOLUmedrol -- Reassess and disposition Progress Notes: EKG: Ordered, reviewed, and independently interpreted the EKG. Rate : 60 BPM Rhythm : NSR Interpretation : No ST-segment elevations, RBBB, LBBB. Comparison : No changes form EKG on 12/15/16 03/21/17 12:28 Chest X-ray read and interpreted by me, which shows mild cardiomegaly, sternotomy sutures, resolved R. mid-lobar infiltrate from previous study, poorly visualized costophrenic angle with small right lower lobar infiltrate. 03/21/17 12:[address] Adán Mullen, accepted admission to his service wheezing improved, in no resp distress at this time pt aware of and agrees with plan - Lab Interpretations Lab Results: 03/21/17 11:10 03/21/17 11:50 Lab Results 03/21/17 11:50: Sodium 144, Potassium 3.6, Chloride 108 H, Carbon Dioxide 25, Anion Gap 15, BUN 35 H, Creatinine 1.1, Est GFR ( Amer) 59, Est GFR (Non- Af Amer) 48, Random Glucose 172 H, Calcium 9.5, Total Bilirubin 0.6, AST 32, ALT 43, Alkaline Phosphatase 90, Lactate Dehydrogenase 447, Total Creatine Kinase 38, Troponin I < 0.01, NT-Pro-B Natriuret Pep 921 H, Total Protein 6.8, Albumin 3.9, Globulin 2.9, Albumin/Globulin Ratio 1.3 03/21/17 11:10: WBC 12.4 H D, RBC 3.91, Hgb 11.7 L, Hct 36.3, MCV 92.8, MCH 29.9 , MCHC 32.2, RDW 15.7 H, Plt Count 245, MPV 9.7, Gran % 94.7 H, Lymph % (Auto) 3.3 L, [place] % (Auto) 2.0, Eos % (Auto) 0.0 L, Baso % (Auto) 0.0, Gran # 11.77 H , Lymph # 0.4 L, [place] # 0.3, Eos # 0.0, Baso # 0.00, Neutrophils % (Manual) Pending, Lymphocytes % (Manual) Pending, Monocytes % (Manual) Pending I have reviewed the lab results: Yes - RAD Interpretation Radiology Orders: 03/21/17 11:11 CHEST PORTABLE [RAD] Stat - EKG Interpretation Interpreted by ED Physician: Yes Type: 12 lead EKG - Medication Orders Current Medication Orders: Ceftriaxone Sodium (Rocephin 1 Gram Ivpb) 1 gm in 100 mls @ 200 mls/hr IV STAT STA PRN Reason: Protocol Stop: 03/21/17 12:56 Azithromycin (Zithromax 500mg In Ns) 500 mg in 250 mls @ 167 mls/hr IVPB STAT STA PRN Reason: Protocol Stop: 03/21/17 13:56 Discontinued Medications Albuterol/Ipratropium (Duoneb 3 Mg/0.5 Mg (3 Ml) Ud) 3 ml IH STAT STA Stop: 03/21/17 11:10 Last Admin: 03/21/17 11:19 Dose: 3 ml Furosemide (Lasix) 20 mg IVP STAT STA Stop: 03/21/17 12:16 Methylprednisolone (Solu-Medrol) 125 mg IVP STAT STA Stop: 03/21/17 11:10 Last Admin: 03/21/17 11:19 Dose: 125 mg - Scribe Statement The provider has reviewed the documentation as recorded by the Gonzalez Arias Provider Jasmineibe Attestation: All medical record entries made by the Gonzalez were at my direction and personally dictated by me. I have reviewed the chart and agree that the record accurately reflects my personal performance of the history, physical exam, medical decision making, and the department course for this patient. I have also personally directed, reviewed, and agree with the discharge instructions and disposition. Disposition/Present on Arrival - Present on Arrival Any Indicators Present on Arrival: No History of DVT/PE: No History of Uncontrolled Diabetes: No Urinary Catheter: No (inserted in or) History of Decub. Ulcer: No History Surgical Site Infection Following: None - Disposition Have Diagnosis and Disposition been Completed?: Yes Diagnosis: Pneumonia Disposition: HOSPITALIZED Disposition Time: 12:35 Patient Plan: Admission Condition: FAIR Referrals: PCP,NO [Primary Care Provider] - Follow up with primary Forms: [employer] (Kyrgyz)
[2017-03-21 11:47] LABS: GRAN # 11.77 (1.4-6.5); GRAN % 94.7 % (50.0-68.0); HEMATOCRIT 36.3 % (36.0-48.0); LYMPH # 0.4 (1.2-3.4); LYMPH % 3.3 % (22.0-35.0); MEAN CELL VOLUME 92.8 fl (80.0-105.0); MEAN CORPUSCULAR HEMOGLOBIN 29.9 pg (25.0-35.0); MEAN CORPUSCULAR HGB CONC 32.2 g/dl (31.0-37.0); MEAN PLATELET VOLUME 9.7 fl (7.0-11.0); MONO # 0.3 (0.1-0.6); PLATELET COUNT 245 10^3/uL (120.0-450.0); RED CELL DISTRIBUTION WIDTH 15.7 % (11.5-14.5); WHITE BLOOD COUNT 12.4 10^3/ul (4.5-11.0)
[2017-03-21 11:58] LABS: ALB/GLOB RATIO 1.3 (1.1-1.8); ALKALINE PHOSPHATASE 90 U/L (38-133); ALT/SGPT 43 U/L (7-56); AST/SGOT 32 U/L (15-39); BILIRUBIN,TOTAL 0.6 mg/dL (0.2-1.3); BLOOD UREA NITROGEN 35 mg/dL (7-21); CALCIUM 9.5 mg/dL (8.4-10.5); CARBON DIOXIDE 25 mmol/L (21-33); CHLORIDE 108 mmol/L (98-107); GFR AFRICAN-AMERICAN 59; GLUCOSE,RANDOM 172 mg/dL (70-110); POTASSIUM 3.6 mmol/L (3.6-5.0); SODIUM 144 mmol/L (132-148); TOTAL PROTEIN 6.8 g/dL (5.8-8.3)
[2017-03-21 12:10] LABS: INR 0.94 (0.93-1.08); PARTIAL THROMBOPLASTIN TIME 24.1 Seconds (23.7-30.8); TROPONIN I < 0.01 ng/mL
[2017-03-21] MEDS ORDERED: Azithromycin 500MG/NS 250ml 500 MG/250 ML BAG IVPB STA (12:27)
[2017-03-21] MEDS ORDERED: cefTRIAXone 1 gm 1 GM/100 ML BAG IV STA (12:27)
[2017-03-21] MEDS ORDERED: Albuterol-Ipratrop 3 mg / 0.5 (3 ml) UD IH PRN ×2 (12:35→14:11)
--- NOTE | 2017-03-21 12:42 | RAD ---
HISTORY: Cough COMPARISON: 12/19/2016. FINDINGS: LUNGS: There is mild pulmonary venous congestion. There is right basilar airspace disease new since the prior examination. PLEURA: No significant pleural effusion identified, no pneumothorax apparent. CARDIOVASCULAR: The heart is normal in size. Status post CABG. OSSEOUS STRUCTURES: No significant abnormalities. VISUALIZED UPPER ABDOMEN: Normal. OTHER FINDINGS: None. IMPRESSION: Right basilar airspace disease could represent pneumonia in the appropriate clinical setting. Follow-up after medical management is advised to ensure complete resolution.
[2017-03-21 12:43] LABS: ANISOCYTOSIS SLIGHT; BAND 2 % (0-2); HYPOCHROMIA SLIGHT; NEUTROPHIL 92 % (50.0-70.0); PLATELET ESTIMATE NORMAL (NORMAL)
--- NOTE | 2017-03-21 13:48 | CP.PCM.HP ---
<Osiris Hunter - Last Filed: 03/21/17 14:17> History of Present Illness - History of Present Illness History of Present Illness: CC: shortness of breath, cough and congestion. Patient is a 76 y/o with PMH of htn, CAD with CABG, COPD, h/o CAP ( November 2016), multi level degenerative disc presenting with dyspnea on exertion, cough and congestion for 1 month. Patient states the cough is productive with yellowish sputum along with runny nose, and itchy eyes. Patient was treated back in November for pneumonia, but states the shortness of breath improved transiently afterward. Patient uses her bronchodilators at home, but states today the shortness of breath got worst, along with wheezing and was not responding to her inhalers. Patient denies fever or chills. Patient denies n/v/d. Denies chest pain, headache, dizziness or palpitations. Patient denies pillow orthopnea. Chest x-ray with right basilar airspace disease could represent pneumonia in the appropriate clinical setting. Patient received solumedrol, Rocephin and bronchodilators in the ED. Patient reports improvement in the SOB. PMH: htn, CAD with CABG, COPD, h/o CAP ( November 2016), multi level degenerative disc, anxiety, GERD. PSH: hysterectomy, CABG, cataract surgery FMH: Mom of breast cancer, dad had htn. Social: former tobacco ( in her 20s), denies alcohol or illicit drug use. Present on Admission - Present on Admission Any Indicators Present on Admission: No History of DVT/PE: No History of Uncontrolled Diabetes: No Urinary Catheter: No Decubitus Ulcer Present: No Review of Systems - Review of Systems All systems: reviewed and no additional remarkable complaints except Review of Systems: As per HPI. Past Patient History - Infectious Disease Hx of Infectious Diseases: None - Past Social History Smoking Status: Former Smoker Alcohol: None Drugs: Denies Home Situation {Lives}: With Family - CARDIAC Hx Hypertension: Yes - PULMONARY Hx Asthma: Yes Hx Chronic Obstructive Pulmonary Disease (COPD): Yes - NEUROLOGICAL Hx Paralysis: No - HEENT Hx Cataracts: Yes (cataract sx both eyes 20 yrs ago) - HEMATOLOGICAL/ONCOLOGICAL Hx Blood Transfusions: No Hx Blood Transfusion Reaction: No - MUSCULOSKELETAL/RHEUMATOLOGICAL Hx Arthritis: Yes - GASTROINTESTINAL Hx Gastroesophageal Reflux: Yes Other/Comment: colon polyps - GENITOURINARY/GYNECOLOGICAL Hx Genitourinary Disorders: No - PSYCHIATRIC Hx Emotional Abuse: No Hx Physical Abuse: No Hx Substance Use: No - SURGICAL HISTORY Hx Hysterectomy: Yes (pt was 38 yrs old) Hx Open Heart Surgery: Yes Other/Comment: Triple Bypass surgery - ANESTHESIA Hx Anesthesia: Yes Hx Anesthesia Reactions: No Meds Allergies/Adverse Reactions: Allergies Allergy/AdvReac Type Severity Reaction Status Date / Time aspirin AdvReac WHEEZING Verified 12/15/16 19:30 Physical Exam - Constitutional Appears: No Acute Distress - Head Exam Head Exam: ATRAUMATIC, NORMAL INSPECTION, NORMOCEPHALIC - Eye Exam Eye Exam: EOMI, Normal appearance, PERRL. absent: Scleral icterus Pupil Exam: NORMAL ACCOMODATION - ENT Exam ENT Exam: Mucous Membranes Moist, Normal Exam - Neck Exam Neck exam: Positive for: Normal Inspection. Negative for: Full Rom, Tenderness - Respiratory Exam Respiratory Exam: Wheezes (occasional expiratory wheezes on the right base. ), NORMAL BREATHING PATTERN. absent: Prolonged Expiratory Phase, Rales, Rhonchi, Respiratory Distress, Stridor - Cardiovascular Exam Cardiovascular Exam: Bradycardia, REGULAR RHYTHM, RRR, +S1, +S2. absent: Gallop , JVD, Rubs, Systolic Murmur - GI/Abdominal Exam GI & Abdominal Exam: Normal Bowel Sounds, Soft. absent: Distended, Firm, Guarding, Rebound, Rigid, Tenderness - Extremities Exam Extremities exam: Positive for: normal inspection. Negative for: pedal edema - Back Exam Back exam: NORMAL INSPECTION - Neurological Exam Neurological exam: Alert, Oriented x3, Reflexes Normal - Psychiatric Exam Psychiatric exam: Normal Affect, Normal Mood - Skin Skin Exam: Dry, Intact, Normal Color, Warm Results - Vital Signs Recent Vital Signs: Last Vital Signs Temp 98.1 F 03/21/17 10:44 Pulse 58 L 03/21/17 10:44 Resp 20 03/21/17 11:29 BP 128/66 03/21/17 12:51 Pulse Ox 96 03/21/17 11:29 - Labs Result Diagrams: 03/21/17 11:10 03/21/17 11:50 Assessment & Plan - Assessment and Plan (Free Text) Assessment: 1) Shortness of breath- COPD exacerbation versus pneumonia, r/o CHF 2) Azotemia 3) CAD 4) HTN 5) Anxiety 6) GERD Plan: Patient to be admitted. Will start solumedrol 40 mg ivp bid. Duoneb prn and standing dose. Will continue Rocephin and add doxy po. Patient had mild leukocytosis, but afebrile, bcx sent. Will obtain AP/LAT chest x-ray to better evaluate for pneumonia. Pulm on consult. Will continue brovana, and singulair. Will continue Lipitor, amiodorone, Lopressor and plavix for CAD. On hctz for htn , on protonix for gerd. SCDs for dvt prophylaxis. Will consider obtaining cardiac echo. Patient seen, examined and discussed with Dr Mullen. - Date & Time Date: 03/21/17 Time: 14:05 <Michael Mullen S - Last Filed: 03/22/17 21:20> Results - Vital Signs Recent Vital Signs: Last Vital Signs Temp 97.9 F 03/22/17 16:00 Pulse 60 03/22/17 17:13 Resp 20 03/22/17 16:00 BP 146/66 03/22/17 17:13 Pulse Ox 98 03/22/17 16:00 - Labs Result Diagrams: 03/22/17 07:00 03/22/17 07:00 Labs: Laboratory Results - last 24 hr 03/22/17 03/22/17 07:00 07:00 WBC 8.5 D RBC 3.70 Hgb 11.2 L Hct 33.9 L MCV 91.6 MCH 30.3 MCHC 33.0 RDW 15.5 H Plt Count 234 MPV 9.8 Gran % 91.5 H Lymph % (Auto) 5.3 L [place] % (Auto) 3.2 Eos % (Auto) 0.0 L Baso % (Auto) 0.0 Gran # 7.74 H Lymph # 0.5 L Kerr # 0.3 Eos # 0.0 Baso # 0.00 Sodium 142 Potassium 3.4 L Chloride 105 Carbon Dioxide 23 Anion Gap 17 BUN 39 H Creatinine 1.0 Est GFR ( Amer) > 60 Est GFR (Non-Af Amer) 54 Random Glucose 138 H Calcium 9.8 Total Bilirubin 0.5 AST 23 ALT 29 Alkaline Phosphatase 78 Total Protein 6.6 Albumin 3.5 Globulin 3.0 Albumin/Globulin Ratio 1.2 Assessment & Plan - Assessment and Plan (Free Text) Plan: Pt seen and examined. Resident note reviewed and I agree with the note. Pt with cough and SOB with exertion. On Duoneb and steroids. Meds reviewed.
--- NOTE | 2017-03-21 15:31 | CARD ---
APPROVED REPORT EKG Measurement Heart [id number] CA 134P [id number] <Conclusion> Normal sinus rhythm Right bundle branch block Left anterior fascicular block Bifascicular block Abnormal ECG
[2017-03-21] MEDS ORDERED: Pneumococcal 23-Valent Vaccine IM ONE (15:42)
[2017-03-21] MEDS: Arformoterol 15 mcg/2 ml Inh Sol IH SCH (19:55)
[2017-03-21] MEDS: Albuterol-Ipratrop 3 mg / 0.5 (3 ml) UD IH SCH (19:56)
[2017-03-21] MEDS: MethylPREDNISolone 40 mg Vial IVP SCH (21:31)
[2017-03-21] MEDS: MONTELUKAST 4 MG PO SCH (21:34)
[2017-03-22] MEDS: Albuterol-Ipratrop 3 mg / 0.5 (3 ml) UD IH SCH ×4 (02:23→19:31)
[2017-03-22 07:34] LABS: GRAN # 7.74 (1.4-6.5); GRAN % 91.5 % (50.0-68.0); HEMATOCRIT 33.9 % (36.0-48.0); LYMPH # 0.5 (1.2-3.4); LYMPH % 5.3 % (22.0-35.0); MEAN CELL VOLUME 91.6 fl (80.0-105.0); MEAN CORPUSCULAR HEMOGLOBIN 30.3 pg (25.0-35.0); MEAN PLATELET VOLUME 9.8 fl (7.0-11.0); MONO # 0.3 (0.1-0.6); MONO % 3.2 % (1.0-6.0); RED CELL DISTRIBUTION WIDTH 15.5 % (11.5-14.5); WHITE BLOOD COUNT 8.5 10^3/ul (4.5-11.0)
[2017-03-22] MEDS: Arformoterol 15 mcg/2 ml Inh Sol IH SCH ×2 (07:34→19:31)
[2017-03-22] MEDS: Budesonide 0.5 mg/2 ml Inhal Susp UD IH SCH ×2 (07:35→19:31)
[2017-03-22 07:53] LABS: GFR AFRICAN-AMERICAN > 60
[2017-03-22 08:09] LABS: ALB/GLOB RATIO 1.2 (1.1-1.8); ALKALINE PHOSPHATASE 78 U/L (38-133); ALT/SGPT 29 U/L (7-56); AST/SGOT 23 U/L (15-39); BILIRUBIN,TOTAL 0.5 mg/dL (0.2-1.3); BLOOD UREA NITROGEN 39 mg/dL (7-21); CALCIUM 9.8 mg/dL (8.4-10.5); CARBON DIOXIDE 23 mmol/L (21-33); CHLORIDE 105 mmol/L (95-110); GLUCOSE,RANDOM 138 mg/dL (70-110); POTASSIUM 3.4 mmol/L (3.6-5.0); SODIUM 142 mmol/L (132-148); TOTAL PROTEIN 6.6 g/dL (5.8-8.3)
--- NOTE | 2017-03-22 08:15 | CP.PCM.PN ---
<Osiris Hunter - Last Filed: 03/22/17 12:42> Subjective - Date & Time of Evaluation Date of Evaluation: 03/22/17 Time of Evaluation: 07:10 - Subjective Subjective: Progress note for Dr Mullen service Patient reports the shortness of breath has improved. The cough has improved as well. Patient denies chest pain, fever or chills. Denies n/v/d. Objective - Vital Signs/Intake and Output Vital Signs (last 24 hours): Temp Pulse Resp BP Pulse Ox 97.9 F 56 L 20 120/75 90 L 03/22/17 07:46 03/22/17 07:46 03/22/17 07:46 03/22/17 07:46 03/22/17 07:46 Intake and Output: 03/22/17 03/22/17 06:59 18:59 Intake Total 900 Balance 900 - Medications Medications: Current Medications Albuterol/Ipratropium (Duoneb 3 Mg/0.5 Mg (3 Ml) Ud) 3 ml IH [id number] [facility] Last Admin: 03/22/17 07:34 Dose: 3 ml Albuterol/Ipratropium (Duoneb 3 Mg/0.5 Mg (3 Ml) Ud) 3 ml IH [id number] PRN PRN Reason: Wheezing Amiodarone HCl (Cordarone) 200 mg PO DAILY [facility] Arformoterol Tartrate (Brovana) 15 mcg IH BID [facility] Last Admin: 03/22/17 07:34 Dose: 15 mcg Atorvastatin Calcium (Lipitor) 20 mg PO DIN [facility] Last Admin: 03/21/17 17:59 Dose: 20 mg Budesonide (Pulmicort Respules) 0.5 mg IH [id number] [facility] Last Admin: 03/22/17 07:35 Dose: 0.5 mg Clopidogrel Bisulfate (Plavix) 75 mg PO DAILY [facility] Doxycycline Hyclate (Doryx) 100 mg PO Q12 [facility] PRN Reason: Protocol Last Admin: 03/21/17 21:31 Dose: 100 mg Escitalopram Oxalate (Lexapro) 10 mg PO DAILY [facility] Fluticasone Propionate (Flonase) 1 actuation NS DAILY [facility] Hydrochlorothiazide (Hydrodiuril) 25 mg PO DAILY [facility] Ceftriaxone Sodium (Rocephin 1 Gram Ivpb) 1 gm in 100 mls @ 100 mls/hr IVPB DAILY [facility] PRN Reason: Protocol Stop: 03/29/17 10:01 Methylprednisolone (Solu-Medrol) 40 mg IVP Q12 [facility] Last Admin: 03/21/17 21:31 Dose: 40 mg Metoprolol Tartrate (Lopressor) 50 mg PO BID [facility] Last Admin: 03/21/17 17:59 Dose: 50 mg Montelukast [ Singulair] 4 Mg) ( Home Med) 4 mg PO HS [facility] Last Admin: 03/21/17 21:34 Dose: Not Given Pantoprazole Sodium (Protonix Ec Tab) 40 mg PO ACB [facility] - Labs Labs: 03/22/17 07:00 03/22/17 07:00 PT 10.2 Seconds (9.9-11.8) 03/21/17 11:50 INR 0.94 (0.93-1.08) 03/21/17 11:50 APTT 24.1 Seconds (23.7-30.8) 03/21/17 11:50 - Constitutional Appears: No Acute Distress - Head Exam Head Exam: ATRAUMATIC, NORMAL INSPECTION, NORMOCEPHALIC - Eye Exam Eye Exam: EOMI, Normal appearance, PERRL. absent: Scleral icterus Pupil Exam: NORMAL ACCOMODATION, PERRL - ENT Exam ENT Exam: Mucous Membranes Moist, Normal Exam - Neck Exam Neck Exam: Full ROM, Normal Inspection - Respiratory Exam Respiratory Exam: Wheezes (diffuse), NORMAL BREATHING PATTERN. absent: Rales, Rhonchi, Respiratory Distress, Stridor - Cardiovascular Exam Cardiovascular Exam: REGULAR RHYTHM, RRR, +S1, +S2. absent: Murmur - GI/Abdominal Exam GI & Abdominal Exam: Soft, Normal Bowel Sounds. absent: Distended, Firm, Guarding, Rigid, Tenderness - Extremities Exam Extremities Exam: Normal Inspection. absent: Pedal Edema - Back Exam Back Exam: NORMAL INSPECTION - Neurological Exam Neurological Exam: Alert, Awake, Oriented x3 - Psychiatric Exam Psychiatric exam: Normal Affect, Normal Mood - Skin Skin Exam: Dry, Intact, Normal Color, Warm Assessment and Plan - Assessment and Plan (Free Text) Assessment: 1) COPD exacerbation 2) CAP 3) Hypokalemia likely 2nd to htcz 4) Azotemia 5) CAD 6) HTN 7) Anxiety 8) GERD Plan: Patient's still wheezing, however reported shortness of breath has improved. Will continue with bronchodilators, will continue with prednisone 40 mg q12 and taper accordingly. Will continue brovana and singulair. Pulm started patient on flonase and pulmocort. Afebrile, leukocytosis trended down, bcx so far no growth. Will continue Rocephin and doxy for CAP and COPD. Patient is on lipitor, amiodorone, Lopressor and plavix for CAD. On hctz for htn , and protonix for gerd. Potassium is being repleted. Patient is also on lexapro for anxiety. Heparin sc for Dvt prophylaxis. Patient seen, examined and discussed with Dr Mullen. <Michael Mullen S - Last Filed: 03/22/17 21:21> Objective - Vital Signs/Intake and Output Vital Signs (last 24 hours): Temp Pulse Resp BP Pulse Ox 97.9 F 60 20 146/66 98 03/22/17 16:00 03/22/17 17:13 03/22/17 16:00 03/22/17 17:13 03/22/17 16:00 - Medications Medications: Current Medications Albuterol/Ipratropium (Duoneb 3 Mg/0.5 Mg (3 Ml) Ud) 3 ml IH [id number] [facility] Last Admin: 03/22/17 19:31 Dose: 3 ml Albuterol/Ipratropium (Duoneb 3 Mg/0.5 Mg (3 Ml) Ud) 3 ml IH [id number] PRN PRN Reason: Wheezing Amiodarone HCl (Cordarone) 200 mg PO DAILY [facility] Last Admin: 03/22/17 09:22 Dose: 200 mg Arformoterol Tartrate (Brovana) 15 mcg IH BID [facility] Last Admin: 03/22/17 19:31 Dose: 15 mcg Atorvastatin Calcium (Lipitor) 20 mg PO DIN [facility] Last Admin: 03/22/17 17:13 Dose: 20 mg Budesonide (Pulmicort Respules) 0.5 mg IH [id number] [facility] Last Admin: 03/22/17 19:31 Dose: 0.5 mg Clopidogrel Bisulfate (Plavix) 75 mg PO DAILY [facility] Last Admin: 03/22/17 09:14 Dose: 75 mg Doxycycline Hyclate (Doryx) 100 mg PO Q12 [facility] PRN Reason: Protocol Last Admin: 03/22/17 09:13 Dose: 100 mg Escitalopram Oxalate (Lexapro) 10 mg PO DAILY [facility] Last Admin: 03/22/17 09:14 Dose: 10 mg Fluticasone Propionate (Flonase) 1 actuation NS DAILY [facility] Last Admin: 03/22/17 10:02 Dose: 1 actuation Heparin Sodium (Porcine) (Heparin) 5,000 units SC Q12 [facility] PRN Reason: Protocol Hydrochlorothiazide (Hydrodiuril) 25 mg PO DAILY [facility] Last Admin: 03/22/17 09:14 Dose: 25 mg Ceftriaxone Sodium (Rocephin 1 Gram Ivpb) 1 gm in 100 mls @ 100 mls/hr IVPB DAILY [facility] PRN Reason: Protocol Stop: 03/29/17 10:01 Last Admin: 03/22/17 09:14 Dose: 100 mls/hr Methylprednisolone (Solu-Medrol) 40 mg IVP Q12 [facility] Last Admin: 03/22/17 09:14 Dose: 40 mg Metoprolol Tartrate (Lopressor) 50 mg PO BID [facility] Last Admin: 03/22/17 17:13 Dose: 50 mg Montelukast [ Singulair] 4 Mg) ( Home Med) 4 mg PO HS [facility] Last Admin: 03/21/17 21:34 Dose: Not Given Pantoprazole Sodium (Protonix Ec Tab) 40 mg PO ACB [facility] Last Admin: 03/22/17 08:34 Dose: 40 mg - Labs Labs: 03/22/17 07:00 03/22/17 07:00 PT 10.2 Seconds (9.9-11.8) 03/21/17 11:50 INR 0.94 (0.93-1.08) 03/21/17 11:50 APTT 24.1 Seconds (23.7-30.8) 03/21/17 11:50 Assessment and Plan - Assessment and Plan (Free Text) Plan: Pt seen and examined. Resident note reviewed and I agree with the note. Pt with cough and SOB with exertion that is improving. PT/ Rehab. Pulmonary consult appreciated.
[2017-03-22] MEDS: Pantoprazole 40 mg EC Tab PO SCH (08:34)
[2017-03-22] MEDS: MethylPREDNISolone 40 mg Vial IVP SCH ×2 (09:14→21:53)
[2017-03-22] MEDS: cefTRIAXone 1 gm 1 GM/100 ML BAG IVPB SCH (09:14)
[2017-03-22] MEDS ORDERED: Potassium Chloride 20 mEq ER Tab PO ONE ×2 (09:34→12:41)
[2017-03-22] MEDS: Fluticasone Nasal 50 mcg/Spray NS SCH (10:02)
--- NOTE | 2017-03-22 14:24 | CON ---
DATE: 03/22/2017 PULMONARY CONSULTATION REASON FOR CONSULTATION: Pneumonia. REFERRING PHYSICIAN: Dr. Michael Mullen HISTORY OF PRESENT ILLNESS: The patient is a 76-year-old female, with past medical history significant for chronic obstructive pulmonary disease, recurrent bronchitis, pneumonia in the past, coronary artery disease, status post open heart surgery, who presents to the [facility] with worsening dyspnea on exertion, cough, congestion, and sputum production for the past week. The patient states that these symptoms have been present for approximately one month, but they did get much worse over the past week. In addition to the above, the patient also states to a runny nose and itchy eyes. There is no history of shortness of breath at rest. There is no history of chest pain, coughing up of blood, or chest pain-made worse with deep respirations. There is no history of temperatures, chills or infectious exposure. There is no history of night sweats, weight loss or appetite change prior to the above events. No history of leg or calf pains. No history of syncope or diaphoresis. No history of recent travel or trauma. REVIEW OF SYSTEMS: No history of nausea, vomiting, or diarrhea. No acute urinary symptoms. No new neurologic complaints. Rest of the review of systems is negative. ALLERGIES: ASPIRIN. SOCIAL HISTORY: Positive for tobacco and negative alcohol. FAMILY HISTORY: No inheritable diseases. HOME MEDICATIONS: Include HydroDIURIL, Incruse Ellipta, Protonix, Singulair, Lopressor, Flovent, Lexapro, Plavix, Lipitor, Brovana and amiodarone. PHYSICAL EXAMINATION: GENERAL: The patient is not short of breath at rest. She is not using accessory muscles for breathing. VITAL SIGNS: Temperature is 98.1, pulse this morning is approximately 80, respirations are 18, and last blood pressure recorded 119/74. Oxygen saturation on nasal canula is 100%. HEENT: Normocephalic and atraumatic. NECK: No JVD. CARDIOVASCULAR: Positive S1 and S2. No S3. LUNGS: Decreased breath sounds at the bases. Scattered rhonchi and wheezing bilaterally. EXTREMITIES: No clubbing, cyanosis or edema. Calves are nontender to palpation. GASTROINTESTINAL: Abdomen is soft, nontender and nondistended. Bowel sounds are positive. SKIN: No acute rash. NEUROLOGIC EXAM: Limited at the present time. LABORATORY DATA: Chest x-ray was done yesterday as a portable exam. The film is rotated and not technically sound. There is a minimal linear opacity at the right base-probably representing either a small pneumonia or atelectasis. CBC: White count 12.4, hemoglobin 11.7, hematocrit 36.3 and platelets are 245K. Complete metabolic profile: Chloride 108, BUN 35, glucose 172, B-type natriuretic peptide 921. Rest of the metabolic profiles are within normal limits. IMPRESSION: 1. Recurrent bronchitis. 2. Chronic obstructive pulmonary disease. 3. Rule out pneumonia-right lower lobe. 4. Coronary artery disease. PLAN: The patient presents to [facility] with worsening pulmonary symptoms for the past week. She actually states that the symptoms have been present for approximately 1 month, but became much worse over the past week. Again, in addition to that above, the patient also complaints of runny nose and itchy eyes. She was thus admitted for additional evaluation. I did review the chest x-ray as above. There is either a minimal linear infiltrate or atelectasis noted at that right base. The patient has been pancultured and started on appropriate antibiotic therapy. A repeat chest x-ray-PA and lateral-has been ordered for this morning. I will check that when feasible. On physical exam, the patient is in [id number] bronchospasm. I will continue with the current nebulizer treatments and intervenous steroids for now. I will also add inhaled Pulmicort and flonase. The patient is on Flovent at home. Repeat a.m. labs are pending. The patient does feel better, and is clinically improved this morning-compared to the past few days. Additional pulmonary intervention will be based on the above results, as well as clinical status of the patient. I will discuss the above with Dr. Mullen this morning. Thank you very much for this pulmonary consultation. Anthony Hameed MD MTDRubin
--- NOTE | 2017-03-22 15:38 | RAD ---
HISTORY: evaluate the pneumonia COMPARISON: 03/21/2017 TECHNIQUE: Chest PA and lateral FINDINGS: LUNGS: No active pulmonary disease. PLEURA: No significant pleural effusion identified. No pneumothorax apparent. CARDIOVASCULAR: Mild cardiomegaly. OSSEOUS STRUCTURES: Sternal wires VISUALIZED UPPER ABDOMEN: Normal. OTHER FINDINGS: None. IMPRESSION: No active disease.
--- NOTE | 2017-03-22 16:04 | US ---
HISTORY: live cysts COMPARISON: None. TECHNIQUE: Sonographic evaluation of the abdomen. FINDINGS: LIVER: Measures 16.8 cm. Liver size borderline prominent. Normal echogenicity of the liver parenchyma. No mass. No intrahepatic bile duct dilatation. GALLBLADDER: Multiple gallstones present. No gallbladder wall thickening or pericholecystic fluid. No positive elicited Burrows's sign and per technologist's note. COMMON BILE DUCT: Measures 3.5 mm. No stones. No dilatation. PANCREAS: Unremarkable as visualized. No mass. No ductal dilatation. RIGHT KIDNEY: Measures 10.4 x 4.4 x 5.5cm. Normal echogenicity. No calculus, mass, or hydronephrosis. Multiple right renal cysts are present upper pole 3.8 x 6.0 x 3.5; midpole 0.7 x 0.4 x 0.8. Another midpole 1.0 x 1.0 x 0.9 LEFT KIDNEY: Measures 12.0 x 4.6 x 6.2cm. Normal echogenicity. No calculus, mass, or hydronephrosis. Multiple renal cysts present is follows: Lower pole anterior 1.9 x 1.4 x 2.1 ; midpole 1.3 x 1.3 x 1.1. Lower pole posterior 2.4 x 1.7 x 2.0 cm SPLEEN: Normal in size and contour. No mass. AORTA: No aneurysmal dilatation. IVC: Unremarkable. OTHER FINDINGS: None. IMPRESSION: Gallstones without ancillary findings to suggest concomitant acute cholecystitis. Clinical correlation and follow-up recommended. No dilated ducts. Bilateral renal cysts. Borderline prominent liver size
--- NOTE | 2017-03-22 20:40 | US ---
PROCEDURE: Lower extremity JOSEPH exam HISTORY: Peripheral vascular disease with pain and claudication. Previous smoker PHYSICIAN(S): Dallas Denise MD. FINDINGS: The resting JOSEPH's are normal: right, 1.02and left, and 0.07. The brachial systolic pressures are symmetric. The high thigh pressures are noncompressible. The high thigh PVR waveforms are normal and symmetric. The calf PVR waveforms augment normally. No significant gradients are noted across the thighs. The ankle and metatarsal waveforms are relatively normal and symmetric. There may be mild symmetric tibial disease. IMPRESSION: 1. Relatively normal JOSEPH and PVR examination at rest. 2. Possible mild symmetric tibial disease
[2017-03-22] MEDS: MONTELUKAST 4 MG PO SCH (22:30)
[2017-03-23] MEDS: Albuterol-Ipratrop 3 mg / 0.5 (3 ml) UD IH SCH ×4 (01:09→19:55)
[2017-03-23 07:32] LABS: BASO # 0.01 K/mm3 (0.0-2.0); BASO % 0.1 % (0.0-3.0); GRAN # 7.84 (1.4-6.5); GRAN % 91.7 % (50.0-68.0); HEMATOCRIT 33.1 % (36.0-48.0); LYMPH # 0.4 (1.2-3.4); LYMPH % 4.3 % (22.0-35.0); MEAN CELL VOLUME 91.7 fl (80.0-105.0); MEAN CORPUSCULAR HEMOGLOBIN 29.9 pg (25.0-35.0); MEAN CORPUSCULAR HGB CONC 32.6 g/dl (31.0-37.0); MEAN PLATELET VOLUME 9.7 fl (7.0-11.0); MONO # 0.3 (0.1-0.6); MONO % 3.9 % (1.0-6.0); RED CELL DISTRIBUTION WIDTH 15.3 % (11.5-14.5); WHITE BLOOD COUNT 8.6 10^3/ul (4.5-11.0)
[2017-03-23 07:53] LABS: GFR AFRICAN-AMERICAN > 60
[2017-03-23 07:55] LABS: ALB/GLOB RATIO 1.2 (1.1-1.8); ALKALINE PHOSPHATASE 69 U/L (38-133); ALT/SGPT 32 U/L (7-56); AST/SGOT 33 U/L (15-39); BILIRUBIN,TOTAL 0.5 mg/dL (0.2-1.3); BLOOD UREA NITROGEN 38 mg/dL (7-21); CALCIUM 9.7 mg/dL (8.4-10.5); CARBON DIOXIDE 26 mmol/L (21-33); CHLORIDE 104 mmol/L (95-110); GLUCOSE,RANDOM 128 mg/dL (70-110); MAGNESIUM 1.9 mg/dL (1.7-2.2); POTASSIUM 4.2 mmol/L (3.6-5.0); SODIUM 140 mmol/L (132-148); TOTAL PROTEIN 6.2 g/dL (5.8-8.3)
[2017-03-23] MEDS: Budesonide 0.5 mg/2 ml Inhal Susp UD IH SCH ×2 (08:28→19:54)
[2017-03-23] MEDS: Arformoterol 15 mcg/2 ml Inh Sol IH SCH ×2 (08:28→19:54)
[2017-03-23] MEDS: Pantoprazole 40 mg EC Tab PO SCH (08:38)
--- NOTE | 2017-03-23 08:50 | CP.PCM.PN ---
<Osiris Hunter - Last Filed: 03/23/17 10:35> Subjective - Date & Time of Evaluation Date of Evaluation: 03/23/17 Time of Evaluation: 07:25 - Subjective Subjective: Progress note for Dr Paz silva. Patient ambulated yesterday, states she was short of breath. Patient states the sinusitis has improved. Denies cp, headache, dizziness, n/v/d. Objective - Vital Signs/Intake and Output Vital Signs (last 24 hours): Temp Pulse Resp BP Pulse Ox 98 F 60 22 162/68 H 95 03/23/17 08:00 03/23/17 08:00 03/23/17 08:00 03/23/17 08:00 03/23/17 08:00 Intake and Output: 03/23/17 03/23/17 06:59 18:59 Intake Total 960 Balance 960 - Medications Medications: Current Medications Albuterol/Ipratropium (Duoneb 3 Mg/0.5 Mg (3 Ml) Ud) 3 ml IH [id number] [facility] Last Admin: 03/23/17 08:28 Dose: 3 ml Albuterol/Ipratropium (Duoneb 3 Mg/0.5 Mg (3 Ml) Ud) 3 ml IH [id number] PRN PRN Reason: Wheezing Amiodarone HCl (Cordarone) 200 mg PO DAILY [facility] Last Admin: 03/22/17 09:22 Dose: 200 mg Arformoterol Tartrate (Brovana) 15 mcg IH BID [facility] Last Admin: 03/23/17 08:28 Dose: 15 mcg Atorvastatin Calcium (Lipitor) 20 mg PO DIN [facility] Last Admin: 03/22/17 17:13 Dose: 20 mg Budesonide (Pulmicort Respules) 0.5 mg IH [id number] [facility] Last Admin: 03/23/17 08:28 Dose: 0.5 mg Clopidogrel Bisulfate (Plavix) 75 mg PO DAILY [facility] Last Admin: 03/22/17 09:14 Dose: 75 mg Doxycycline Hyclate (Doryx) 100 mg PO Q12 [facility] PRN Reason: Protocol Last Admin: 03/22/17 21:53 Dose: 100 mg Escitalopram Oxalate (Lexapro) 10 mg PO DAILY [facility] Last Admin: 03/22/17 09:14 Dose: 10 mg Fluticasone Propionate (Flonase) 1 actuation NS DAILY [facility] Last Admin: 03/22/17 10:02 Dose: 1 actuation Heparin Sodium (Porcine) (Heparin) 5,000 units SC Q12 [facility] PRN Reason: Protocol Last Admin: 03/22/17 21:53 Dose: 5,000 units Hydrochlorothiazide (Hydrodiuril) 25 mg PO DAILY [facility] Last Admin: 03/22/17 09:14 Dose: 25 mg Ceftriaxone Sodium (Rocephin 1 Gram Ivpb) 1 gm in 100 mls @ 100 mls/hr IVPB DAILY [facility] PRN Reason: Protocol Stop: 03/29/17 10:01 Last Admin: 03/22/17 09:14 Dose: 100 mls/hr Methylprednisolone (Solu-Medrol) 30 mg IVP Q12 [facility] Metoprolol Tartrate (Lopressor) 50 mg PO BID [facility] Last Admin: 03/22/17 17:13 Dose: 50 mg Montelukast [ Singulair] 4 Mg) ( Home Med) 4 mg PO HS [facility] Last Admin: 03/22/17 22:30 Dose: Not Given Pantoprazole Sodium (Protonix Ec Tab) 40 mg PO ACB [facility] Last Admin: 03/23/17 08:38 Dose: 40 mg - Labs Labs: 03/23/17 07:00 03/23/17 07:00 PT 10.2 Seconds (9.9-11.8) 03/21/17 11:50 INR 0.94 (0.93-1.08) 03/21/17 11:50 APTT 24.1 Seconds (23.7-30.8) 03/21/17 11:50 - Constitutional Appears: No Acute Distress, Chronically Ill - Head Exam Head Exam: ATRAUMATIC, NORMAL INSPECTION, NORMOCEPHALIC - Eye Exam Eye Exam: EOMI, Normal appearance, PERRL. absent: Scleral icterus Pupil Exam: NORMAL ACCOMODATION, PERRL - ENT Exam ENT Exam: Mucous Membranes Moist - Neck Exam Neck Exam: Full ROM, Normal Inspection - Respiratory Exam Respiratory Exam: Clear to Ausculation Bilateral, NORMAL BREATHING PATTERN. absent: Rales, Rhonchi, Wheezes, Respiratory Distress, Stridor - Cardiovascular Exam Cardiovascular Exam: REGULAR RHYTHM, +S1, +S2. absent: Murmur - GI/Abdominal Exam GI & Abdominal Exam: Soft, Normal Bowel Sounds. absent: Distended, Firm, Guarding, Tenderness - Extremities Exam Extremities Exam: Normal Inspection - Back Exam Back Exam: NORMAL INSPECTION - Neurological Exam Neurological Exam: Alert, Awake, Oriented x3 - Psychiatric Exam Psychiatric exam: Normal Affect, Normal Mood - Skin Skin Exam: Dry, Intact, Normal Color, Warm Assessment and Plan - Assessment and Plan (Free Text) Assessment: 1) COPD exacerbation. 2) Normocytic anemia - 3) Hypokalemia likely 2nd to htcz- resolved 4) Azotemia 5) CAD 6) HTN 7) Anxiety 8) GERD Plan: No consolidations on repeat A-P Lat chest x-ray. Respiratory status is much improved. Continue with bronchodilators. Solumedrol is being tapered as per pulm. Will continue flonase, pulmocort, brovana and singulair as per pulm. Will continue Rocephin and doxy COPD exacerbation. Cardiomegaly and still dyspneic on exertion, will obtain echo to evaluate for LV function. Will continue lipitor, amiodorone, Lopressor and plavix for CAD. On hctz for htn , Patient is also on lexapro for anxiety. Heparin sc for Dvt prophylaxis. Protonix for gi prophylaxis. Patient seen, examined and discussed with Dr Mullen. <Michael Mullen S - Last Filed: 03/23/17 21:37> Objective - Vital Signs/Intake and Output Vital Signs (last 24 hours): Temp Pulse Resp BP Pulse Ox 97.9 F 55 L 18 128/54 L 100 03/23/17 16:00 03/23/17 16:00 03/23/17 16:00 03/23/17 16:00 03/23/17 16:00 Intake and Output: 03/23/17 03/24/17 18:59 06:59 Intake Total 600 Balance 600 - Medications Medications: Current Medications Albuterol/Ipratropium (Duoneb 3 Mg/0.5 Mg (3 Ml) Ud) 3 ml IH [id number] [facility] Last Admin: 03/23/17 19:55 Dose: 3 ml Albuterol/Ipratropium (Duoneb 3 Mg/0.5 Mg (3 Ml) Ud) 3 ml IH [id number] PRN PRN Reason: Wheezing Amiodarone HCl (Cordarone) 200 mg PO DAILY [facility] Last Admin: 03/23/17 13:41 Dose: 200 mg Arformoterol Tartrate (Brovana) 15 mcg IH BID [facility] Last Admin: 03/23/17 19:54 Dose: 15 mcg Atorvastatin Calcium (Lipitor) 20 mg PO DIN [facility] Last Admin: 03/22/17 17:13 Dose: 20 mg Budesonide (Pulmicort Respules) 0.5 mg IH [id number] [facility] Last Admin: 03/23/17 19:54 Dose: 0.5 mg Clopidogrel Bisulfate (Plavix) 75 mg PO DAILY [facility] Last Admin: 03/23/17 13:39 Dose: 75 mg Doxycycline Hyclate (Doryx) 100 mg PO Q12 [facility] PRN Reason: Protocol Last Admin: 03/23/17 21:13 Dose: 100 mg Escitalopram Oxalate (Lexapro) 10 mg PO DAILY [facility] Last Admin: 03/23/17 13:40 Dose: 10 mg Fluticasone Propionate (Flonase) 1 actuation NS DAILY [facility] Last Admin: 03/23/17 13:44 Dose: 1 actuation Heparin Sodium (Porcine) (Heparin) 5,000 units SC Q12 [facility] PRN Reason: Protocol Last Admin: 03/23/17 21:13 Dose: 5,000 units Hydrochlorothiazide (Hydrodiuril) 25 mg PO DAILY [facility] Last Admin: 03/23/17 13:41 Dose: 25 mg Ceftriaxone Sodium (Rocephin 1 Gram Ivpb) 1 gm in 100 mls @ 100 mls/hr IVPB DAILY [facility] PRN Reason: Protocol Stop: 03/29/17 10:01 Last Admin: 03/23/17 13:37 Dose: 100 mls/hr Methylprednisolone (Solu-Medrol) 30 mg IVP Q12 [facility] Last Admin: 03/23/17 21:13 Dose: 30 mg Metoprolol Tartrate (Lopressor) 50 mg PO BID [facility] Last Admin: 03/23/17 13:39 Dose: 50 mg Montelukast [ Singulair] 4 Mg) ( Home Med) 4 mg PO HS [facility] Last Admin: 03/22/17 22:30 Dose: Not Given Pantoprazole Sodium (Protonix Ec Tab) 40 mg PO ACB [facility] Last Admin: 03/23/17 08:38 Dose: 40 mg - Labs Labs: 03/23/17 07:00 03/23/17 07:00 PT 10.2 Seconds (9.9-11.8) 03/21/17 11:50 INR 0.94 (0.93-1.08) 03/21/17 11:50 APTT 24.1 Seconds (23.7-30.8) 03/21/17 11:50 Assessment and Plan - Assessment and Plan (Free Text) Plan: Pt seen and examined. Resident note reviewed and I agree with it. SOB is improving. On Steroids and Neb treatment. Meds reviewed.
--- NOTE | 2017-03-23 08:52 | PN ---
DATE: 03/23/2017 SUBJECTIVE: The patient appears more comfortable this morning. She is not short of breath at rest. PHYSICAL EXAMINATION: VITAL SIGNS: Temperature 97.9, pulse 60, respirations 18, and blood pressure 146/66. Oxygen saturation on nasal cannula is 98%. HEENT: Normocephalic and atraumatic. NECK: No JVD. CARDIOVASCULAR: Positive S1 and S2. No S3. LUNGS: Better breath sounds at the bases. Much less rhonchi and wheezing bilaterally. EXTREMITIES: No clubbing, cyanosis, or edema. Calves are nontender to palpation. GASTROINTESTINAL: Abdomen is soft, nontender, and nondistended. Bowel sounds are positive. SKIN: No acute rash. NEUROLOGIC: Limited at the present time. PERTINENT LABORATORY DATA: Chest x-ray was repeated yesterday-- as AP and lateral exam. The previously seen, minimal right basilar change - is no longer evident. IMPRESSION: 1. Recurrent bronchitis. 2. Chronic obstructive pulmonary disease. 3. Rule out pneumonia - right lower lobe. 4. Coronary artery disease. PLAN: The patient appears much more comfortable this morning. She is not short of breath at rest. She states she is feeling much much better overall. I did review the chest x-ray - repeated yesterday. The repeated chest x-ray no longer shows the previously seen minimal right basilar opacity. However, we will continue to treat for pneumonia at this point in time. Cultures are pending. On physical exam, her bronchospasm is much less. I will continue the current nebulizer treatments and decrease the intervenous steroid this morning. The patient is reminded to be out of bed as much as possible. Her clinical status is much improved. I will discuss the above with Dr. Zapata. Anthony Hameed MD [facility]
[2017-03-23] MEDS: MethylPREDNISolone 40 mg Vial IVP SCH ×2 (13:37→21:13)
[2017-03-23] MEDS: cefTRIAXone 1 gm 1 GM/100 ML BAG IVPB SCH (13:37)
[2017-03-23] MEDS: Fluticasone Nasal 50 mcg/Spray NS SCH (13:44)
[2017-03-24] MEDS: Albuterol-Ipratrop 3 mg / 0.5 (3 ml) UD IH SCH ×4 (01:08→20:12)
--- NOTE | 2017-03-24 06:51 | PN ---
DATE: 03/24/2017 SUBJECTIVE: The patient appears comfortable at rest. She is not short of breath. PHYSICAL EXAMINATION: VITAL SIGNS: Temperature is 97.9, pulse is 61, respirations 18, blood pressure 147/77. Oxygen saturation on room air ranges between 95% to 100%. HEENT: Normocephalic and atraumatic. NECK: No JVD. CARDIOVASCULAR: Positive S1 and S2. No S3. LUNGS: Still with mild rhonchi and wheezing bilaterally--but less overall. EXTREMITIES: No clubbing, cyanosis, or edema. Calves are nontender to palpation. GASTROINTESTINAL: Abdomen is soft, nontender, and nondistended. Bowel sounds are positive. SKIN: No acute rash. NEUROLOGIC: Limited at the present time. IMPRESSION: 1. Recurrent bronchitis. 2. Chronic obstructive pulmonary disease. 3. Rule out pneumonia-right lower lobe. 4. Coronary artery disease. PLAN: The patient appears comfortable this morning. She is not short of breath at rest. She does state to feeling much better overall. She is still, however, complains of dyspneic on exertion. On physical exam, mild bronchospasm persists. I will continue with the current nebulizer treatments and current intervenous steroids for now. Hopefully, we can changed to oral therapy in the next 24 hours. The patient also remains on antibiotic therapy. There are no temperatures noted. The leukocytosis has resolved. All cultures are so far negative. Clinical status of the patient is significantly improved overall. The patient is advised to increase her activity as tolerated. I will discuss the above with the Dr. Zapata. Anthony Hameed MD MTDRubin
[2017-03-24 07:03] LABS: GRAN # 6.91 (1.4-6.5); GRAN % 89.2 % (50.0-68.0); HEMATOCRIT 34.2 % (36.0-48.0); LYMPH # 0.4 (1.2-3.4); LYMPH % 5.5 % (22.0-35.0); MEAN CELL VOLUME 91.7 fl (80.0-105.0); MEAN CORPUSCULAR HEMOGLOBIN 29.8 pg (25.0-35.0); MEAN CORPUSCULAR HGB CONC 32.5 g/dl (31.0-37.0); MEAN PLATELET VOLUME 9.6 fl (7.0-11.0); MONO # 0.4 (0.1-0.6); MONO % 5.3 % (1.0-6.0); RED CELL DISTRIBUTION WIDTH 15.3 % (11.5-14.5); WHITE BLOOD COUNT 7.8 10^3/ul (4.5-11.0)
[2017-03-24] MEDS: Budesonide 0.5 mg/2 ml Inhal Susp UD IH SCH ×2 (07:11→20:12)
[2017-03-24] MEDS: Arformoterol 15 mcg/2 ml Inh Sol IH SCH ×3 (07:12→20:12)
[2017-03-24 07:19] LABS: ALB/GLOB RATIO 1.2 (1.1-1.8); ALKALINE PHOSPHATASE 70 U/L (38-133); ALT/SGPT 34 U/L (7-56); AST/SGOT 29 U/L (15-39); BILIRUBIN,TOTAL 0.6 mg/dL (0.2-1.3); BLOOD UREA NITROGEN 35 mg/dL (7-21); CALCIUM 9.8 mg/dL (8.4-10.5); CARBON DIOXIDE 26 mmol/L (21-33); CHLORIDE 103 mmol/L (95-110); GFR AFRICAN-AMERICAN > 60; GLUCOSE,RANDOM 118 mg/dL (70-110); POTASSIUM 4.5 mmol/L (3.6-5.0); SODIUM 139 mmol/L (132-148); TOTAL PROTEIN 6.3 g/dL (5.8-8.3)
[2017-03-24] MEDS: Pantoprazole 40 mg EC Tab PO SCH (08:07)
--- NOTE | 2017-03-24 09:48 | PQF GENQUE ---
This form is a permanent part of the medical record Clarification of your documentation is requested to better reflect the severity of illness and intensity of treatment of your patient. Indicators present Initial CXR 03/21, questionable pneumonia. Repeat 03/22 showed no active ds. Has Pneumonia been ruled out ? [x] Specify: [x]not definitely [] Specify: [] [] Specify: [] [] Specify: [] Location in the medical record that reflects the above clinical findings: [x] admission CXR Treatment Provided: [x]IV Steroids PHYSICIAN'S RESPONSE Based on your medical judgment of the clinical indicators outlined above please clarify the following: [] Practitioner response [x] If unable to determine, please check the box, sign and date. Present On Admission (POA) Indicator: [x] Present at the time of admission [] Not present at the time of admission [] Clinically Undetermined In responding to this query, please exercise your independent professional judgment. The fact that a question is asked does not imply that any particular answer is desired or expected. Thank you for your clarification on this documentation. If you have any questions please call:[ ][phone] * Thank you, [ ] Juliana Eason RN ore grader [facility]
[2017-03-24] MEDS: cefTRIAXone 1 gm 1 GM/100 ML BAG IVPB SCH (11:28)
[2017-03-24] MEDS: Fluticasone Nasal 50 mcg/Spray NS SCH (11:31)
[2017-03-24] MEDS: MethylPREDNISolone 40 mg Vial IVP SCH ×2 (11:38→23:32)
--- NOTE | 2017-03-24 15:46 | CARD ---
APPROVED REPORT EXAM: Two-dimensional and M-mode echocardiogram with Doppler and color Doppler. INDICATION DYSPNEA ON EXERTION 2D DIMENSIONS Left Atrium (2D)4.5 (1.6-4.0cm)IVSd1.0 (0.7-1.1cm) LVDd4.1 (3.9-5.9cm)PWd1.1 (0.7-1.1cm) LVDs2.7 (2.5-4.0cm)FS (%) 33.8 % LVEF (%)63.2 (>50%) M-Mode DIMENSIONS Aortic Root3.50 (2.2-3.7cm)Aortic Cusp Exc.2.00 (1.5-2.0cm) Aortic Valve AoV Peak Rjdyqaqx180.0cm/Nitesh Peak GR.8mmHgAI P 1/2 Nwvd225cl Mitral Valve MV E Rhdupphl579.0cm/sMV A Mwfahiwb840.0cm/sE/A ratio1.0 TDI Lateral E' Peak V9.16cm/sMedial E' Peak V6.82cm/sE/Lateral E'11.8 E/Medial E'15.8 Pulmonary Valve PV Peak Ahmaspfs52.9cm/sPV Peak Grad.3mmHg Tricuspid Valve TR Peak [id number]/sRAP [id number] Peak Gr.32mmHg [id number] LEFT VENTRICLE The left ventricle is normal size. There is normal left ventricular wall thickness. The left ventricular ejection fraction is within the normal range. Septal hypokinesis Transmitral Doppler flow pattern is Grade I-abnormal relaxation pattern. RIGHT VENTRICLE The right ventricle is normal size. There is normal right ventricular wall thickness. The right ventricular systolic function is normal. ATRIA The left atrium is mildly dilated. The right atrium is mildly dilated. AORTIC VALVE The aortic valve is normal in structure. There is moderate aortic regurgitation. MITRAL VALVE The mitral valve is mildly thickened. There is no mitral valve regurgitation noted. TRICUSPID VALVE There is mild pulmonary hypertension. GREAT VESSELS The aortic root is normal in size. The IVC was not visualized. PERICARDIAL EFFUSION There is no pericardial effusion. <Conclusion> The left ventricle is normal size. There is normal left ventricular wall thickness. The left ventricular ejection fraction is within the normal range. Septal hypokinesis Transmitral Doppler flow pattern is Grade I-abnormal relaxation pattern. There is moderate aortic regurgitation. There is mild pulmonary hypertension.
[2017-03-25] MEDS: Albuterol-Ipratrop 3 mg / 0.5 (3 ml) UD IH SCH ×2 (01:30→07:20)
--- NOTE | 2017-03-25 07:13 | PN ---
DATE: 03/25/2017 SUBJECTIVE: The patient appears very comfortable at rest. She is not short of breath. PHYSICAL EXAMINATION: VITAL SIGNS: Temperature is 98.3, pulse is 60, respirations 18/20, blood pressure 134/83. Oxygen saturation on room air is 95%. HEENT: Normocephalic and atraumatic. NECK: No JVD. CARDIOVASCULAR: Positive S1 and S2. No S3. LUNGS: Minimal/much less rhonchi. No wheezing this morning. EXTREMITIES: No clubbing, cyanosis, or edema. Calves are nontender to palpation. GASTROINTESTINAL: Abdomen is soft, nontender, and nondistended. Bowel sounds are positive. SKIN: No acute rash. NEUROLOGIC: Limited at the present time. IMPRESSION: 1. Recurrent bronchitis. 2. Chronic obstructive pulmonary disease. 3. Rule out pneumonia-right lower lobe. 4. Coronary artery disease. PLAN: The patient appears very comfortable this morning. She is not short of breath at rest. She does state to feeling much, much better overall. She is much less dyspneic on exertion. On physical exam, her bronchospasm continues to resolve. In addition, the alveolar-arterial gradient also continues to resolve. Oxygen saturation on room air is now 95%. I will continue with the current nebulizer treatments and change to oral steroids this morning. The patient remains on antibiotic therapy. There are no temperatures noted. The leukocytosis has resolved. Clinical status of the patient is significantly improved. I will discuss the above with the attending physician. Anthony Hameed MD MTDD
[2017-03-25] MEDS: Arformoterol 15 mcg/2 ml Inh Sol IH SCH (07:19)
[2017-03-25] MEDS: Budesonide 0.5 mg/2 ml Inhal Susp UD IH SCH (07:20)
[2017-03-25 08:18] VITALS: BP 135/72; PULSE 58; RESP 18; TEMP 98.2; O2SAT 93
[2017-03-25] MEDS: Pantoprazole 40 mg EC Tab PO SCH (09:49)
[2017-03-25] MEDS: cefTRIAXone 1 gm 1 GM/100 ML BAG IVPB SCH (09:52)
[2017-03-25] MEDS: Fluticasone Nasal 50 mcg/Spray NS SCH (09:59)
--- NOTE | 2017-03-25 12:00 | DS ---
DATE: 03/25/2017 SUBJECTIVE: The patient was initially admitted to the hospital because of COPD exacerbation. She is having cough and congestion. She is having difficulty with ambulating because of shortness of breath. She says she is feeling better. Her breathing improved. She has no complaints of any headaches or dizziness. She does have a cough. PHYSICAL EXAMINATION: VITAL SIGNS: Temperature is 98.3, pulse is 60, blood pressure is 134/83, and respirations are 20. GENERAL: The patient is lying in bed, flat, comfortable. HEENT: No oral lesion. Anicteric sclerae. Moist mucosa. NECK: No JVD, adenopathy, or thyromegaly. CARDIOVASCULAR: S1 and S2, regular. No murmurs, rubs, or gallops. LUNGS: Clear to auscultation bilaterally. No wheeze, rales, or rhonchi. ABDOMEN: Bowel sounds are positive, soft, nontender and nondistended. EXTREMITIES: No cyanosis, clubbing or edema. ASSESSMENT: 1. Acute on chronic obstructive pulmonary disease exacerbation. 2. Hypokalemia. 3. Coronary artery disease. 4. Hypertension. 5. Anxiety. 6. Gastroesophageal reflux disease. PLAN: The patient is currently comfortable. She is off formoterol. She wants to continue with her nebulizer treatment. She is receiving Flonase. The patient is on heparin for DVT prophylaxis. She is on Lipitor for dyslipidemia. She is on Plavix. She is going to continue with her Rocephin for antibiotics and then steroids. She is going to be discharged home today. She was seen by Dr. Hameed. Condition is stable. Activities increase as tolerated. Discharged home. Followup with Dr. Mendosa in one to two weeks. Followup with Dr. Denise and Dr. Mullen in one to two weeks. Michael Mullen MD
== END 2017-03-25 11:33 | disposition home or self-care (01) | DRG 190 ==
LOC: ED 10:43 → ERH 12:54 → 5RNO 15:06
PROVIDERS: ADMIT Internal Medicine Nephrology; ATTEND Internal Medicine Nephrology
PROC: 3E0F7GC Introduction of Other Therapeutic Substance into Respiratory Tract, Via Natural or Artificial Opening (ICD-10-PCS; principal; 2017-03-21)
DX: J44.0 Chronic obstructive pulmonary disease with (acute) lower respiratory infection (principal); J18.9 Pneumonia, unspecified organism; J44.1 Chronic obstructive pulmonary disease with (acute) exacerbation; I10 Essential (primary) hypertension; I25.10 Atherosclerotic heart disease of native coronary artery without angina pectoris; K21.9 Gastro-esophageal reflux disease without esophagitis; E87.6 Hypokalemia; T50.2X5A Adverse effect of carbonic-anhydrase inhibitors, benzothiadiazides and other diuretics, initial encounter; D64.9 Anemia, unspecified; F41.9 Anxiety disorder, unspecified; R79.89 Other specified abnormal findings of blood chemistry; Z95.1 Presence of aortocoronary bypass graft; Z87.891 Personal history of nicotine dependence; Z79.02 Long term (current) use of antithrombotics/antiplatelets; Z79.51 Long term (current) use of inhaled steroids; Z87.01 Personal history of pneumonia (recurrent); Z90.710 Acquired absence of both cervix and uterus

== ENCOUNTER 2017-12-06 11:53 | Day surgery (SDC) | payer MEDICARE, MEDICAID ==
[2017-12-01 09:12] VITALS: BMI 27.1
[2017-12-06] MEDS ORDERED: Midazolam 2 MG/2 ML VIAL ONE (13:51)
[2017-12-06] MEDS ORDERED: Propofol 10 mg/ml Inj (20 ML) ONE ×2 (13:51→16:07)
[2017-12-06] MEDS ORDERED: Sodium Chloride 0.9% 1,000 ML IV SCH (14:00)
[2017-12-06] MEDS ORDERED: Etomidate 20 mg/10ml Inj IV ONE (14:20)
[2017-12-06 17:11] VITALS: RESP 20; TEMP 97.6; O2SAT 97
[2017-12-06 17:42] VITALS: BP 158/79; PULSE 56
== END 2017-12-06 18:00 | disposition home or self-care (01) ==
LOC: ENDO 11:53
PROVIDERS: ATTEND Internal Medicine Gastroenterology
DX: K31.7 Polyp of stomach and duodenum (principal); K21.9 Gastro-esophageal reflux disease without esophagitis; K57.30 Diverticulosis of large intestine without perforation or abscess without bleeding; I10 Essential (primary) hypertension; D12.0 Benign neoplasm of cecum; D12.5 Benign neoplasm of sigmoid colon; K29.50 Unspecified chronic gastritis without bleeding; K63.5 Polyp of colon; K64.8 Other hemorrhoids
CPT/HCPCS: 43239; 43251; 45380; 45381; 45385; 88305; 88312; 88342; J2250; J2704; J7040 ×2

== ENCOUNTER 2018-02-16 06:49 | Day surgery (SDC) | payer MEDICARE, MEDICAID ==
[2017-12-01 09:12] VITALS: BMI 27.1
[2018-02-16] MEDS ORDERED: Propofol 10 mg/ml Inj (20 ML) ONE ×2 (07:51→09:02)
[2018-02-16] MEDS ORDERED: Sodium Chloride 0.9% 1,000 ML IV SCH (10:30)
[2018-02-16 11:20] VITALS: BP 140/64; PULSE 54; RESP 16; TEMP 97.5; O2SAT 95
== END 2018-02-16 11:50 | disposition home or self-care (01) ==
LOC: ENDO 06:49
PROVIDERS: ATTEND Internal Medicine Gastroenterology
DX: D12.0 Benign neoplasm of cecum (principal); D12.5 Benign neoplasm of sigmoid colon; D12.4 Benign neoplasm of descending colon; K57.30 Diverticulosis of large intestine without perforation or abscess without bleeding; K64.8 Other hemorrhoids; I25.10 Atherosclerotic heart disease of native coronary artery without angina pectoris
CPT/HCPCS: 45380; 45381; 45385; 88305; J2001; J2704; J7030; J7040

== ENCOUNTER 2018-02-20 07:30 | Inpatient (IN) | payer MEDICARE, MEDICAID ==
[2017-12-01 09:12] VITALS: BMI 27.1
[2018-03-02] MEDS ORDERED: Propofol 10 mg/ml Inj (20 ML) ONE (07:56)
[2018-03-02] MEDS ORDERED: Midazolam 2 MG/2 ML VIAL ONE (07:57)
[2018-03-02] MEDS ORDERED: Rocuronium 10 mg/ml (5 ml) ONE ×2 (07:57→10:13)
[2018-03-02] MEDS: Bupivacaine 0.5% Inj(30mL) ONE ×2 (09:40→11:00)
[2018-03-02] MEDS ORDERED: ePHEDrine 50 mg/ml Inj ONE (09:41)
[2018-03-02] MEDS ORDERED: HYDROmorphone 0.5 mg/0.5 ml ISec IVP PRN (11:02)
[2018-03-02] MEDS ORDERED: Glycopyrrolate 0.2 mg/ml (2ml vial) ONE (11:06)
[2018-03-02] MEDS ORDERED: Neostigmine Methylsulfate 3mg/3ml Syringe IV ONE (11:07)
[2018-03-02] MEDS ORDERED: Sodium Chloride 0.9% 1,000 ML IV SCH (11:15)
--- NOTE | 2018-03-02 11:22 | PCM.SURG1 ---
Surgeon's Initial Post Op Note - Surgeon's Notes Surgeon: Dr. Peters Survey Worker: Leno PGY3, Guido PGY2, Clark HARVEY Type of Anesthesia: General Endo, Local Anesthesia Administered By: Dr. Massey Pre-Operative Diagnosis: Cecal mass, umbilical hernia Operative Findings: Cecal mass, umbilical hernia Post-Operative Diagnosis: Cecal mass, umbilical hernia Operation Performed: Laparoscopic hand-assist Right hemicolectomy with primary anastamosis, primary umbilical hernia repair Specimen/Specimens Removed: right colon, ileocecal valve, distal ileum Estimated Blood Loss: EBL {In ML}: 50 Blood Products Given: N/A Drains Used: No Drains Post-Op Condition: Good Date of Surgery/Procedure: 03/02/18 Time of Surgery/Procedure: 11:22
[2018-03-02] MEDS ORDERED: Albuterol HFA 90 mcg/actuation (8 g) IH PRN (11:29)
[2018-03-02] MEDS ORDERED: HYDROmorphone 0.5 mg/0.5 ml ISec ONE ×2 (11:55→12:28)
[2018-03-02] MEDS ORDERED: HYDROmorphone 0.5 mg/0.5 ml ISec IVP ONE ×2 (11:56→12:29)
[2018-03-02] MEDS: HYDROmorphone 0.5 mg/0.5 ml ISec IVP PRN ×2 (14:29→18:08)
[2018-03-02] MEDS ORDERED: FLUTICASONE PROPIONATE IH SCH (18:00)
[2018-03-02] MEDS ORDERED: Pneumococcal 23-Valent Vaccine IM ONE (18:53)
[2018-03-02] MEDS: Arformoterol 15 mcg/2 ml Inh Sol IH SCH (19:52)
[2018-03-02] MEDS: Lactated Ringer's 1,000 ML IV SCH (20:12)
[2018-03-03] MEDS: HYDROmorphone 0.5 mg/0.5 ml ISec IVP PRN ×3 (02:02→09:41)
[2018-03-03] MEDS: Lactated Ringer's 1,000 ML IV SCH (04:56)
[2018-03-03] MEDS ORDERED: Sodium Chloride 0.9% 1,000 ML IV STA (06:38)
[2018-03-03 06:46] LABS: EOS % 0.3 % (1.5-5.0); GRAN # 7.78 (1.4-6.5); GRAN % 84.6 % (50.0-68.0); HEMOGLOBIN 8.4 g/dL (12.0-16.0); LYMPH # 0.7 (1.2-3.4); LYMPH % 7.8 % (22.0-35.0); MEAN CELL VOLUME 85.4 fl (80.0-105.0); MEAN CORPUSCULAR HEMOGLOBIN 27.2 pg (25.0-35.0); MEAN CORPUSCULAR HGB CONC 31.8 g/dl (31.0-37.0); MEAN PLATELET VOLUME 9.3 fl (7.0-11.0); MONO # 0.7 (0.1-0.6); MONO % 7.3 % (1.0-6.0); RBC 3.09 10^6/uL (3.5-6.1); RED CELL DISTRIBUTION WIDTH 15.8 % (11.5-14.5); WHITE BLOOD COUNT 9.2 10^3/ul (4.5-11.0)
[2018-03-03] MEDS ORDERED: Lactated Ringer's 1,000 ML IV SCH ×3 (06:49→21:02)
[2018-03-03 07:06] LABS: CALCIUM 8.7 mg/dL (8.4-10.5)
[2018-03-03] MEDS: Arformoterol 15 mcg/2 ml Inh Sol IH SCH ×2 (07:25→20:45)
--- NOTE | 2018-03-03 08:13 | CP.PCM.PN ---
Subjective - Date & Time of Evaluation Date of Evaluation: 03/03/18 Time of Evaluation: 07:00 - Subjective Subjective: General Surgery Note for Dr. Peters Patient seen and examined at bedside. Patient only had 300 cc of urine output overnight as per nursing. Patient complaining of RLQ pain. She denies flatus and BM. Patient remain NPO. Denies fever/chills or nausea/vomiting. Objective - Vital Signs/Intake and Output Vital Signs (last 24 hours): Temp Pulse Resp BP Pulse Ox 98.1 F 57 L 18 122/58 L 95 03/03/18 06:00 03/03/18 06:00 03/03/18 06:00 03/03/18 06:00 03/03/18 06:00 Intake and Output: 03/03/18 03/03/18 06:59 18:59 Intake Total 2380 Output Total 300 Balance 2080 - Medications Medications: Current Medications Acetaminophen (Tylenol 325mg Tab) 650 mg PO Q6 PRN PRN Reason: Fever >100.4 F Amiodarone HCl (Cordarone) 200 mg PO DAILY [facility] Arformoterol Tartrate (Brovana) 15 mcg IH BIDRESP [facility] Last Admin: 03/03/18 07:25 Dose: 15 mcg Atorvastatin Calcium (Lipitor) 20 mg PO DIN [facility] Last Admin: 03/02/18 17:51 Dose: 20 mg Escitalopram Oxalate (Lexapro) 10 mg PO DAILY [facility] Hydrochlorothiazide (Hydrodiuril) 25 mg PO DAILY [facility] Hydromorphone HCl (Dilaudid) 0.5 mg IVP Q3H PRN PRN Reason: Pain, severe (8-10) Last Admin: 03/03/18 05:03 Dose: 0.5 mg Lactated Ringer's (Lactated Ringer's) 1,000 mls @ 150 mls/hr IV .[id number] [facility] Metoprolol Tartrate (Lopressor) 50 mg PO BID [facility] Last Admin: 03/02/18 17:56 Dose: Not Given Montelukast Sodium (Singulair) 10 mg PO HS [facility] Last Admin: 03/02/18 21:34 Dose: 10 mg Umeclidinium [place] [Incruse Ellipta] (Home Med) 1 puff IH DAILY [facility] Fluticasone Propionate [Flovent Hfa] (Home Med) 1 puff IH BID [facility] Ondansetron HCl (Zofran Inj) 4 mg IVP Q6 PRN PRN Reason: Nausea/Vomiting Pantoprazole Sodium (Protonix Inj) 40 mg IVP DAILY [facility] - Labs Labs: 03/03/18 06:00 03/03/18 06:00 - Constitutional Appears: No Acute Distress - Head Exam Head Exam: ATRAUMATIC, NORMOCEPHALIC - Eye Exam Eye Exam: Normal appearance - ENT Exam ENT Exam: Mucous Membranes Dry - Respiratory Exam Respiratory Exam: NORMAL BREATHING PATTERN - Cardiovascular Exam Cardiovascular Exam: REGULAR RHYTHM - GI/Abdominal Exam GI & Abdominal Exam: Soft, Tenderness (surgical site, RLQ), Normal Bowel Sounds. absent: Distended, Firm, Guarding, Rigid, Rebound Additional comments: dressing clean dry and intact - Extremities Exam Extremities Exam: Normal Capillary Refill - Back Exam Back Exam: absent: CVA tenderness (L), CVA tenderness (R) - Neurological Exam Neurological Exam: Alert, Awake, Oriented x3 - Psychiatric Exam Psychiatric exam: Normal Affect, Normal Mood - Skin Skin Exam: Dry, Intact, Normal Color, Warm Assessment and Plan - Assessment and Plan (Free Text) Assessment: 77F s/p right hemicolectomy POD#1 Plan: -NPO with ice chips, will consider CLD today -Continue IV fluids -IV fluid blous this AM -Monitor urine output -Strict I's &O's -Analgesics/Anti-emetics PRN -OOB to chair/Ambulation/IS -GI/DVT ppx -Further recommendations as per Dr. Fran Lora PGY2
--- NOTE | 2018-03-03 09:17 | OP ---
Copied To: Reji Munson MD Attending MD: Reji Munson MD UROLOGY OPERATIVE NOTE PROCEDURE DATE: 03/02/2018 PREOPERATIVE DIAGNOSIS: Gastrointestinal lesion she has 2 lesions. POSTOPERATIVE DIAGNOSIS: Gastrointestinal lesion, she has 2 lesions. UROLOGY PROCEDURE: Cystoscopy, insertion of left and right ureteral stents. SURGEON: Reji Munson MD COMPLICATIONS: There were no complications. BLOOD LOSS: Less than 10 mL. From our end the patient has major observation is the patient has some erythema within the urinary bladder. FINDINGS: The patient has a mild cystocele. It is in the urinary bladder, there is some erythema, you can see the pictures that were taken and saved. There are no major abnormalities. The ureters are a little bit low secondary to cystocele, but there is some inflammatory lesions along the trigone that definitely are not of malignant nature, but they look like chronic cystitis (I would even consider biopsying them, but not in the setting where the patient is about to have her hemicolectomy). At the termination with the procedure, we put the stents in and we put the Palacios catheter in, and the stents could be removed afterwards. The entire procedure was done with a camera. DESCRIPTION OF PROCEDURE: After obtaining informed consent, explaining the patient what we plan to do, the patient was brought to the OR, placed on a table. Routine monitor was placed. Time-out was called to confirm the patient's positioning. Antibiotic prophylaxis were used. We did our procedure, and the rest of the procedure of course was done by Dr. Peters. We introduced the cystoscope via the urethra, I just want to mention that the patient has a mild cystocele. The was identified. The trigone is somewhat erythematous, it is like a chronic cystitis, little bit of edema here and there, but there are no mass lesions. Nothing overly suspicious although as mentioned above, I would consider biopsy but not at this setting. At this point, we identified the left ureteral orifice and the right ureteral orifice; we put open-ended ureteral catheters without difficulty. Bladder is emptied with the Palacios catheter, we secured it in place. We used an Atnya catheter, and after pulling the catheter down, we secured it to the bladder neck. We then adjusted the ureteral catheters and secured them with silk ties. The patient tolerated the procedure without complications. The Urology plan to be removing the stents at the termination of the procedure and leave the Palacios till whenever indicated from a GI standpoint (I will make a note to follow up with the patient) she should have followup therefore the chronic cystitis picture and also the cystocele, and we did discuss little options here and there. Reji Munson MD
--- NOTE | 2018-03-03 09:44 | CON ---
Copied To: Reji Munson MD Attending MD: Reji Munson MD DATE: 03/02/2018 UROLOGY CONSULTATION REASON FOR CONSULTATION: In preparation for ureteral stent insertion. HISTORY OF PRESENT ILLNESS: Jmaes is a very pleasant lady. She is 77 years old, almost 78 year old femaile who has been undergoing a hemicolectomy here in [facility] requested to insert a stent prior to the procedure. The urology history is basically has minimal voiding complaints, no irritative or obstructive complaints. Occasional nocturia. No history of urologic issues. No history of stones or previous urology surgeries. We requested to place stents. The patient does have some voiding dysfunction and some difficulty with holding urination and urgency etc. Minimal, but some complaints for sure. PAST MEDICAL AND SURGICAL HISTORY: Available from the chart. MEDICATIONS: See the chart. ALLERGIES: NONE. REVIEW OF SYSTEMS: . SOCIAL HISTORY: She is here with . PHYSICAL EXAMINATION GENERAL: A well-developed, well-nourished female, in no apparent distress, appears as stated age. VITAL SIGNS: Within normal limits. GENITOURINARY: Otherwise limited. PELVIC: that I mentioned now that she does have a mild cystocele. LABORATORY DATA: Noticed on the chart. DIAGNOSIS: She is preop for a resection. Urology is requested for insertion of stent. From urology standpoint, she has minimal voiding complaints and we are going to put in an ureteral stent. I explained all the risks, benefits and treatment alternatives to the patient. She consents to the above. So further plans to follow. ADDENDUM: The patient has a mild cystocele, she is not disturbed by it but symptom galdamez. So we will make observation, but no further intervention from Urology standpoint. Reji Munson MD
[2018-03-03 11:45] LABS: HEMOGLOBIN 7.9 g/dL (12.0-16.0); MEAN CELL VOLUME 85.8 fl (80.0-105.0); MEAN CORPUSCULAR HEMOGLOBIN 26.8 pg (25.0-35.0); MEAN CORPUSCULAR HGB CONC 31.2 g/dl (31.0-37.0); MEAN PLATELET VOLUME 9.2 fl (7.0-11.0); RBC 2.95 10^6/uL (3.5-6.1); RED CELL DISTRIBUTION WIDTH 15.7 % (11.5-14.5); WHITE BLOOD COUNT 7.2 10^3/ul (4.5-11.0)
[2018-03-03] MEDS ORDERED: HYDROmorphone 1 mg/ml ISec IVP PRN ×2 (12:00→17:08)
[2018-03-03] MEDS ORDERED: HYDROmorphone 0.5 mg/0.5 ml ISec IVP PRN (17:09)
[2018-03-03] MEDS ORDERED: Albuterol-Ipratrop 3 mg / 0.5 (3 ml) UD IH STA (17:55)
[2018-03-03] MEDS: UMECLIDINIUM BROMIDE IH SCH (18:14)
[2018-03-03] MEDS: FLUTICASONE PROPIONATE IH SCH ×2 (18:15)
[2018-03-03 20:04] LABS: HEMOGLOBIN 7.7 g/dL (12.0-16.0); MEAN CELL VOLUME 85.3 fl (80.0-105.0); MEAN CORPUSCULAR HGB CONC 31.7 g/dl (31.0-37.0); MEAN PLATELET VOLUME 9.6 fl (7.0-11.0); RBC 2.85 10^6/uL (3.5-6.1); RED CELL DISTRIBUTION WIDTH 15.5 % (11.5-14.5); WHITE BLOOD COUNT 9.5 10^3/ul (4.5-11.0)
[2018-03-04] MEDS: Arformoterol 15 mcg/2 ml Inh Sol IH SCH ×2 (06:55→20:30)
[2018-03-04 07:06] LABS: CALCIUM 8.7 mg/dL (8.4-10.5)
[2018-03-04 07:08] LABS: BASO # 0.01 K/mm3 (0.0-2.0); BASO % 0.1 % (0.0-3.0); EOS % 0.5 % (1.5-5.0); GRAN # 6.59 (1.4-6.5); GRAN % 85.4 % (50.0-68.0); HEMOGLOBIN 7.9 g/dL (12.0-16.0); LYMPH # 0.5 (1.2-3.4); LYMPH % 6.9 % (22.0-35.0); MEAN CELL VOLUME 84.8 fl (80.0-105.0); MEAN CORPUSCULAR HEMOGLOBIN 27.2 pg (25.0-35.0); MEAN CORPUSCULAR HGB CONC 32.1 g/dl (31.0-37.0); MEAN PLATELET VOLUME 9.9 fl (7.0-11.0); MONO # 0.6 (0.1-0.6); MONO % 7.1 % (1.0-6.0); RBC 2.9 10^6/uL (3.5-6.1); RED CELL DISTRIBUTION WIDTH 15.8 % (11.5-14.5); WHITE BLOOD COUNT 7.7 10^3/ul (4.5-11.0)
[2018-03-04] MEDS ORDERED: Sodium Chloride 0.9% 500 ML IV STA (07:32)
--- NOTE | 2018-03-04 08:01 | RAD ---
Date of service: 03/03/2018 HISTORY: SOB COMPARISON: 01/09/2018 FINDINGS: LUNGS: Linear atelectasis at the right lung base PLEURA: No significant pleural effusion identified, no pneumothorax apparent. CARDIOVASCULAR: Mild cardiomegaly OSSEOUS STRUCTURES: Sternal wires VISUALIZED UPPER ABDOMEN: Normal. OTHER FINDINGS: None. IMPRESSION: No active disease.
[2018-03-04] MEDS: Potassium Chloride 20 MEQ in Dextrose 5%/0.45% NS 1,000 ML IV SCH (08:34)
[2018-03-04] MEDS: HYDROmorphone 1 mg/ml ISec IVP PRN ×2 (08:54→14:57)
[2018-03-04] MEDS ORDERED: Magnesium 2 gm/50 ml NS 2 GM/50 ML BAG IVPB ONE (09:08)
--- NOTE | 2018-03-04 09:17 | CP.PCM.PN ---
Subjective - Date & Time of Evaluation Date of Evaluation: 03/04/18 Time of Evaluation: 09:14 - Subjective Subjective: General Surgery Progress Note for Dr. Peters This 77F was seen and evaluated this AM at bedside. Overnight pt complained of sweating and lightheadedness at the time her sbp was 94/45 she was bolused a liter of fluid and her dilaudid was held and her BP improved. Overnight she had only produced 100cc of dark urin. She reports improvement in isabel-inscisional pain however she is still requiring pain medication. She denies flatus or BM. She denies any nasuea, vomiting, fevers, chills chest pain shortness of breath. Objective - Vital Signs/Intake and Output Vital Signs (last 24 hours): Temp Pulse Resp BP Pulse Ox 98.8 F 63 20 122/58 L 98 03/04/18 07:58 03/04/18 07:58 03/04/18 07:58 03/04/18 07:58 03/04/18 07:58 Intake and Output: 03/04/18 03/04/18 06:59 18:59 Intake Total 860 Output Total 200 Balance 660 - Medications Medications: Current Medications Acetaminophen (Tylenol 325mg Tab) 650 mg PO Q6 PRN PRN Reason: Fever >100.4 F Last Admin: 03/03/18 17:56 Dose: 650 mg Amiodarone HCl (Cordarone) 200 mg PO DAILY [facility] Last Admin: 03/03/18 09:43 Dose: Not Given Arformoterol Tartrate (Brovana) 15 mcg IH BIDRESP [facility] Last Admin: 03/04/18 06:55 Dose: 15 mcg Atorvastatin Calcium (Lipitor) 20 mg PO DIN [facility] Last Admin: 03/03/18 18:00 Dose: Not Given Escitalopram Oxalate (Lexapro) 10 mg PO DAILY [facility] Last Admin: 03/03/18 09:42 Dose: 10 mg Hydrochlorothiazide (Hydrodiuril) 25 mg PO DAILY [facility] Last Admin: 03/03/18 09:43 Dose: Not Given Hydromorphone HCl (Dilaudid) 1 mg IVP Q4H PRN PRN Reason: Pain, severe (8-10) Last Admin: 03/04/18 08:54 Dose: 1 mg Potassium Chloride 20 meq/ (Dextrose/Sodium Chloride) 1,010 mls @ 85 mls/hr IV .[id number] [facility] Last Admin: 03/04/18 08:34 Dose: 85 mls/hr Magnesium 2 gm/50 ml NS (Magnesium Sulfate 2 Gm/50 Ml Ns) 2 gm in 50 mls @ 50 mls/hr IVPB ONCE ONE Stop: 03/04/18 10:07 Potassium Chloride (Potassium Chloride 20 Meq/100 Ml) 20 meq in 100 mls @ 50 mls/hr IVPB Q2H [facility] Stop: 03/04/18 13:14 Metoprolol Tartrate (Lopressor) 50 mg PO BID [facility] Last Admin: 03/03/18 18:36 Dose: Not Given Montelukast Sodium (Singulair) 10 mg PO HS [facility] Last Admin: 03/03/18 22:28 Dose: 10 mg Umeclidinium [place] [Incruse Ellipta] (Home Med) 1 puff IH DAILY [facility] Last Admin: 03/03/18 18:14 Dose: 1 puff Fluticasone Propionate [Flovent Hfa] (Home Med) 1 puff IH BID [facility] Last Admin: 03/03/18 18:15 Dose: 1 puff Ondansetron HCl (Zofran Inj) 4 mg IVP Q6 PRN PRN Reason: Nausea/Vomiting Pantoprazole Sodium (Protonix Inj) 40 mg IVP DAILY [facility] Last Admin: 03/03/18 09:42 Dose: 40 mg - Labs Labs: 03/04/18 06:20 03/04/18 06:20 - Constitutional Appears: Non-toxic, No Acute Distress - Head Exam Head Exam: ATRAUMATIC, NORMOCEPHALIC - Eye Exam Eye Exam: EOMI, Normal appearance - ENT Exam ENT Exam: Mucous Membranes Moist - Respiratory Exam Respiratory Exam: NORMAL BREATHING PATTERN - Cardiovascular Exam Cardiovascular Exam: +S1, +S2 - GI/Abdominal Exam GI & Abdominal Exam: Soft. absent: Firm, Guarding, Rigid, Tenderness Additional comments: inscsions well approximated non tender nonerythematous, non draining - Neurological Exam Neurological Exam: Alert, Awake - Psychiatric Exam Psychiatric exam: Normal Affect, Normal Mood - Skin Skin Exam: Dry, Intact Assessment and Plan - Assessment and Plan (Free Text) Assessment: 77F POD#2 s/p right hemicolectomy Cr mild increase from baseline Hgb stable Monitor drain outputs Monitor bowel function Pain control Continue Home bp meds Continue home asthma meds Restart dvt PPX D/W Dr. Fran Burr PGY3
[2018-03-04] MEDS: UMECLIDINIUM BROMIDE IH SCH (09:52)
[2018-03-04] MEDS: FLUTICASONE PROPIONATE IH SCH ×2 (09:53→17:56)
[2018-03-04] MEDS ORDERED: Albuterol 0.083% Inhal Sol (2.5 mg/3 mL) UD IH PRN ×2 (17:37→17:43)
[2018-03-05] MEDS ORDERED: Albuterol 0.083% Inhal Sol (2.5 mg/3 mL) UD IH PRN (00:56)
[2018-03-05] MEDS ORDERED: Albuterol HFA 90 mcg/actuation (8 g) IH PRN (02:45)
[2018-03-05] MEDS ORDERED: VENTOLIN 90 MCG INH PRN (02:49)
[2018-03-05 07:13] LABS: BASO # 0.01 K/mm3 (0.0-2.0); BASO % 0.2 % (0.0-3.0); EOS # 0.1 (0.0-0.7); EOS % 1.8 % (1.5-5.0); GRAN # 4.35 (1.4-6.5); GRAN % 79.6 % (50.0-68.0); LYMPH # 0.5 (1.2-3.4); LYMPH % 9.3 % (22.0-35.0); MEAN CELL VOLUME 84.4 fl (80.0-105.0); MEAN CORPUSCULAR HEMOGLOBIN 26.6 pg (25.0-35.0); MEAN CORPUSCULAR HGB CONC 31.5 g/dl (31.0-37.0); MEAN PLATELET VOLUME 9.8 fl (7.0-11.0); MONO # 0.5 (0.1-0.6); MONO % 9.1 % (1.0-6.0); RBC 3.01 10^6/uL (3.5-6.1); RED CELL DISTRIBUTION WIDTH 15.6 % (11.5-14.5); WHITE BLOOD COUNT 5.5 10^3/ul (4.5-11.0)
[2018-03-05] MEDS: Arformoterol 15 mcg/2 ml Inh Sol IH SCH ×2 (07:23→21:18)
[2018-03-05 07:43] LABS: BLOOD UREA NITROGEN 13 mg/dL (7-21); CALCIUM 8.8 mg/dL (8.4-10.5); GFR AFRICAN-AMERICAN > 60; GFR NON-AFRICAN AMERICAN > 60
--- NOTE | 2018-03-05 08:49 | CP.PCM.PN ---
Subjective - Date & Time of Evaluation Date of Evaluation: 03/05/18 Time of Evaluation: 08:46 - Subjective Subjective: Surgery PT seen and examined. No acute events. Pain controlled. OOB. Denies fever, nausea, vomiting, diarrhea, CP, SOb. No BM. No flatus. TOlerating CLD. Objective - Vital Signs/Intake and Output Vital Signs (last 24 hours): Temp Pulse Resp BP Pulse Ox 98.4 F 64 16 135/65 96 03/05/18 08:34 03/05/18 08:34 03/05/18 08:34 03/05/18 08:34 03/05/18 08:34 Intake and Output: 03/05/18 03/05/18 06:59 18:59 Intake Total 2160 Output Total 600 Balance 1560 - Medications Medications: Current Medications Acetaminophen (Tylenol 325mg Tab) 650 mg PO Q6 PRN PRN Reason: Fever >100.4 F Last Admin: 03/03/18 17:56 Dose: 650 mg Amiodarone HCl (Cordarone) 200 mg PO DAILY [facility] Last Admin: 03/04/18 09:54 Dose: 200 mg Arformoterol Tartrate (Brovana) 15 mcg IH BIDRESP [facility] Last Admin: 03/05/18 07:23 Dose: 15 mcg Atorvastatin Calcium (Lipitor) 20 mg PO DIN [facility] Last Admin: 03/04/18 17:56 Dose: 20 mg Enoxaparin Sodium (Lovenox) 30 mg SC DAILY [facility] PRN Reason: Protocol Escitalopram Oxalate (Lexapro) 10 mg PO DAILY [facility] Last Admin: 03/04/18 09:54 Dose: 10 mg Home Med (Home Med) 1 unit INH Q4 PRN PRN Reason: Wheezing Last Admin: 03/05/18 03:03 Dose: 1 unit Hydrochlorothiazide (Hydrodiuril) 25 mg PO DAILY [facility] Last Admin: 03/03/18 09:43 Dose: Not Given Hydromorphone HCl (Dilaudid) 1 mg IVP Q4H PRN PRN Reason: Pain, severe (8-10) Last Admin: 03/04/18 14:57 Dose: 1 mg Potassium Chloride 20 meq/ (Dextrose/Sodium Chloride) 1,010 mls @ 85 mls/hr IV .[id number] [facility] Last Admin: 03/04/18 08:34 Dose: 85 mls/hr Metoprolol Tartrate (Lopressor) 50 mg PO BID [facility] Last Admin: 03/03/18 18:36 Dose: Not Given Montelukast Sodium (Singulair) 10 mg PO HS [facility] Last Admin: 03/04/18 21:48 Dose: 10 mg Umeclidinium [place] [Incruse Ellipta] (Home Med) 1 puff IH DAILY [facility] Last Admin: 03/04/18 09:52 Dose: 1 puff Fluticasone Propionate [Flovent Hfa] (Home Med) 1 puff IH BID [facility] Last Admin: 03/04/18 17:56 Dose: 1 puff Ondansetron HCl (Zofran Inj) 4 mg IVP Q6 PRN PRN Reason: Nausea/Vomiting Pantoprazole Sodium (Protonix Inj) 40 mg IVP DAILY [facility] Last Admin: 03/04/18 09:54 Dose: 40 mg Potassium Chloride (Klor-Con 10) 10 meq PO BRK [facility] - Labs Labs: 03/05/18 05:00 03/05/18 06:30 - Constitutional Appears: No Acute Distress - Head Exam Head Exam: ATRAUMATIC, NORMAL INSPECTION, NORMOCEPHALIC - Eye Exam Eye Exam: EOMI, Normal appearance, PERRL Pupil Exam: NORMAL ACCOMODATION, PERRL - ENT Exam ENT Exam: Mucous Membranes Moist, Normal Exam - Neck Exam Neck Exam: Full ROM, Normal Inspection. absent: Lymphadenopathy - Respiratory Exam Respiratory Exam: NORMAL BREATHING PATTERN - Cardiovascular Exam Cardiovascular Exam: REGULAR RHYTHM - GI/Abdominal Exam GI & Abdominal Exam: Soft, Tenderness, Normal Bowel Sounds. absent: Distended, Firm, Guarding, Rigid Additional comments: Abd Incision C/D/I. Stapled. - Exam Exam: NORMAL INSPECTION - Back Exam Back Exam: NORMAL INSPECTION - Neurological Exam Neurological Exam: Alert, Awake, CN II-XII Intact, Normal Gait, Oriented x3 - Psychiatric Exam Psychiatric exam: Normal Affect, Normal Mood - Skin Skin Exam: Dry, Intact, Normal Color, Warm Assessment and Plan - Assessment and Plan (Free Text) Assessment: 77F POD#3 s/p right hemicolectomy Cr improved Urine 600cc/24hrs measured. Hgb stable FLD Monitor drain outputs Monitor bowel function Pain control Continue Home bp meds Continue home asthma meds dvt/GI PPX OOB ambulate, IS Will D/W Dr. Peters
[2018-03-05] MEDS: Enoxaparin 30 mg Syringe SC SCH (10:07)
[2018-03-05] MEDS: Potassium Chloride 10 mEq ER Tab PO SCH (10:09)
[2018-03-05] MEDS: UMECLIDINIUM BROMIDE IH SCH (10:10)
[2018-03-05] MEDS: FLUTICASONE PROPIONATE IH SCH ×2 (10:10→17:45)
[2018-03-05] MEDS: HYDROmorphone 1 mg/ml ISec IVP PRN (10:53)
[2018-03-05] MEDS: Potassium Chloride 20 MEQ in Dextrose 5%/0.45% NS 1,000 ML IV SCH ×2 (17:45→22:09)
[2018-03-06] MEDS: Arformoterol 15 mcg/2 ml Inh Sol IH SCH ×2 (07:28→20:00)
[2018-03-06 07:35] LABS: BASO # 0.03 K/mm3 (0.0-2.0); BASO % 0.6 % (0.0-3.0); EOS # 0.2 (0.0-0.7); EOS % 4.3 % (1.5-5.0); GRAN # 3.53 (1.4-6.5); GRAN % 71.9 % (50.0-68.0); HEMOGLOBIN 7.6 g/dL (12.0-16.0); LYMPH # 0.4 (1.2-3.4); LYMPH % 8.1 % (22.0-35.0); MEAN CELL VOLUME 84.8 fl (80.0-105.0); MEAN CORPUSCULAR HEMOGLOBIN 26.9 pg (25.0-35.0); MEAN CORPUSCULAR HGB CONC 31.7 g/dl (31.0-37.0); MEAN PLATELET VOLUME 10.2 fl (7.0-11.0); MONO # 0.7 (0.1-0.6); MONO % 15.1 % (1.0-6.0); RBC 2.83 10^6/uL (3.5-6.1); RED CELL DISTRIBUTION WIDTH 15.7 % (11.5-14.5); WHITE BLOOD COUNT 4.9 10^3/ul (4.5-11.0)
[2018-03-06 07:53] LABS: BLOOD UREA NITROGEN 8 mg/dL (7-21); CALCIUM 8.8 mg/dL (8.4-10.5); GFR AFRICAN-AMERICAN > 60; GFR NON-AFRICAN AMERICAN > 60
--- NOTE | 2018-03-06 08:36 | CP.PCM.PN ---
Subjective - Date & Time of Evaluation Date of Evaluation: 03/06/18 Time of Evaluation: 08:33 - Subjective Subjective: General Surgery Progress Note for Dr. Peters This 77F was seen and evaluated this AM at bedside. No acute events overnight. Patient reports that she is passing gas however denies bowel movements. She is tolerating her full liquid diet and getting out of bed. Her only complaint is a large blister on the heal of her foot. Objective - Vital Signs/Intake and Output Vital Signs (last 24 hours): Temp Pulse Resp BP Pulse Ox 97.4 F L 63 16 149/74 98 03/06/18 06:00 03/06/18 06:00 03/06/18 06:00 03/06/18 06:00 03/06/18 06:00 Intake and Output: 03/06/18 03/06/18 06:59 18:59 Intake Total 2160 Output Total 1900 Balance 260 - Medications Medications: Current Medications Acetaminophen (Tylenol 325mg Tab) 650 mg PO Q6 PRN PRN Reason: Fever >100.4 F Last Admin: 03/03/18 17:56 Dose: 650 mg Amiodarone HCl (Cordarone) 200 mg PO DAILY [facility] Last Admin: 03/05/18 10:09 Dose: 200 mg Arformoterol Tartrate (Brovana) 15 mcg IH BIDRESP [facility] Last Admin: 03/06/18 07:28 Dose: 15 mcg Atorvastatin Calcium (Lipitor) 20 mg PO DIN [facility] Last Admin: 03/05/18 17:43 Dose: 20 mg Enoxaparin Sodium (Lovenox) 30 mg SC DAILY [facility] PRN Reason: Protocol Last Admin: 03/05/18 10:07 Dose: 30 mg Escitalopram Oxalate (Lexapro) 10 mg PO DAILY [facility] Last Admin: 03/05/18 10:09 Dose: 10 mg Home Med (Home Med) 1 unit INH Q4 PRN PRN Reason: Wheezing Last Admin: 03/05/18 03:03 Dose: 1 unit Hydrochlorothiazide (Hydrodiuril) 25 mg PO DAILY [facility] Last Admin: 03/03/18 09:43 Dose: Not Given Hydromorphone HCl (Dilaudid) 1 mg IVP Q4H PRN PRN Reason: Pain, severe (8-10) Last Admin: 03/05/18 10:53 Dose: 1 mg Potassium Chloride 20 meq/ (Dextrose/Sodium Chloride) 1,010 mls @ 85 mls/hr IV .[id number] [facility] Last Admin: 03/05/18 22:09 Dose: 85 mls/hr Metoprolol Tartrate (Lopressor) 50 mg PO BID [facility] Last Admin: 03/03/18 18:36 Dose: Not Given Montelukast Sodium (Singulair) 10 mg PO HS [facility] Last Admin: 03/05/18 22:02 Dose: 10 mg Umeclidinium [place] [Incruse Ellipta] (Home Med) 1 puff IH DAILY [facility] Last Admin: 03/05/18 10:10 Dose: 1 puff Fluticasone Propionate [Flovent Hfa] (Home Med) 1 puff IH BID [facility] Last Admin: 03/05/18 17:45 Dose: Not Given Ondansetron HCl (Zofran Inj) 4 mg IVP Q6 PRN PRN Reason: Nausea/Vomiting Pantoprazole Sodium (Protonix Inj) 40 mg IVP DAILY [facility] Last Admin: 03/05/18 10:07 Dose: 40 mg Potassium Chloride (Klor-Con 10) 10 meq PO BRK [facility] Last Admin: 03/05/18 10:09 Dose: 10 meq - Labs Labs: 03/06/18 07:00 03/06/18 07:00 - Constitutional Appears: Non-toxic, No Acute Distress - Head Exam Head Exam: ATRAUMATIC, NORMOCEPHALIC - Eye Exam Eye Exam: EOMI - ENT Exam ENT Exam: Mucous Membranes Moist - Respiratory Exam Respiratory Exam: NORMAL BREATHING PATTERN - Cardiovascular Exam Cardiovascular Exam: REGULAR RHYTHM - GI/Abdominal Exam GI & Abdominal Exam: Soft. absent: Firm, Guarding, Rigid, Tenderness Additional comments: wound well aproximated non tender non erythematous non draining. - Neurological Exam Neurological Exam: Alert, Awake - Psychiatric Exam Psychiatric exam: Normal Affect, Normal Mood - Skin Skin Exam: Dry, Intact Assessment and Plan - Assessment and Plan (Free Text) Assessment: This is a 77F who is POD#4 s/p right hemicolectomy and doing well Monitor bowel function Advance diet, add ensure Out of bed Podiatry eval further recs per Dr. Fran Burr PGY3
[2018-03-06] MEDS: FLUTICASONE PROPIONATE IH SCH (10:42)
[2018-03-06] MEDS: Potassium Chloride 10 mEq ER Tab PO SCH (10:42)
[2018-03-06] MEDS: Enoxaparin 30 mg Syringe SC SCH (10:42)
[2018-03-06] MEDS: Potassium Chloride 20 MEQ in Dextrose 5%/0.45% NS 1,000 ML IV SCH (18:31)
[2018-03-06] MEDS: HYDROmorphone 1 mg/ml ISec IVP PRN (21:28)
--- NOTE | 2018-03-07 02:19 | CON ---
Copied To: Lizbet Phillips MD Attending MD: Lizbet Phillips MD DATE: 03/06/2018 CONSULT REQUESTED BY: Theo Peters MD HISTORY OF PRESENT ILLNESS: Ms. Ramirez is a 77-year-old female, well known to me from office. She has been recently diagnosed with early stage breast cancer on the right side, underwent lumpectomy. Oncotype DX showed high risk for recurrence, the score is 30. She was found to have a mass in the right side of the colon. She underwent hemicolectomy. 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 She also had multiple polyps removed from the left side of the colon, all were benign. She had decline in hemoglobin to 7.6 gram per deciliters. She has baseline iron, severe iron deficiency likely due to chronic GI blood loss due to large adenoma in the right side of the colon. She was started on regular diet today. She tolerated it well. No abdominal pain. No nausea. No vomiting. PAST MEDICAL HISTORY: Breast cancer, recently diagnosed; hypertension, coronary artery disease, status post CABG, COPD, history of multiple pneumonia and degenerative disc disease. PAST SURGICAL HISTORY: Hysterectomy, CABG, cataract surgery. FAMILY HISTORY: Positive for breast cancer and ovarian cancer. Mom of breast cancer. Her daughter has breast cancer. Dad had hypertension. PERSONAL HISTORY: Former smoker, quit in 20s. No history of alcohol abuse. SOCIAL HISTORY: Lives at home with her . ALLERGIES: ASPIRIN. REVIEW OF SYSTEMS: As per HPI. Rest of 12-point review of systems reviewed and negative. PHYSICAL EXAMINATION: GENERAL: Comfortable in bed, in no acute distress. VITAL SIGNS: Temperature 98.7, heart rate , blood pressure 117/60, respiratory rate 18 per minute, oxygen saturation 96% on room air. HEENT: Pallor positive. NECK: No lymphadenopathy. CHEST: Air entry present equal and bilateral. No added sounds. CARDIOVASCULAR: S1 and S2 normal. No murmur. No gallop. ABDOMEN: Soft and nontender. No hepatosplenomegaly. Bowel sounds present. EXTREMITIES: No edema. CENTRAL NERVOUS SYSTEM: Alert and oriented x3. No focal sensory or motor deficit. LABORATORY DATA: White count 4.9, hemoglobin 7.6, hematocrit 24, platelet count 182. Sodium 139, potassium 4.4, creatinine 0.8, calcium 8.8, magnesium 1.8. ASSESSMENT AND PLAN: 1. Early stage breast cancer, right-sided, Oncotype DX high risk for recurrence, score is 30. She has multiple family members with breast and uterine cancer. Discussed at length with the patient, high recurrence score. She will need chemotherapy to reduce the recurrence risk, may be single agent. We will plan the treatment as outpatient. 2. Right-sided colonic villous adenoma, status post right hemicolectomy. Discussed the pathology report with Ms. Ramirez. She was pleased to know that there is no colon cancer. Previous polyps removed from left side of the colon are benign also. 3. Severe iron deficiency anemia. Hemoglobin declined to 7.6, two units of packed red blood cells ordered. We will continue intravenous iron as outpatient to replete the body iron. 4. Recent surgery, Dr. Peters following. Thank you Dr. Peters for allowing us to participate in Ms. Ramirez's care. Lizbet Phillips MD
[2018-03-07] MEDS ORDERED: Pantoprazole 40 mg EC Tab PO SCH (07:30)
[2018-03-07] MEDS: Potassium Chloride 10 mEq ER Tab PO SCH (08:21)
--- NOTE | 2018-03-07 08:24 | CP.PCM.PN ---
Subjective - Date & Time of Evaluation Date of Evaluation: 03/07/18 Time of Evaluation: 07:05 - Subjective Subjective: General Surgery Progress Note for Dr. Peters Patient was seen and evaluated this AM at bedside. No acute events overnight. Patient denies pain. Patient reports passing flatus however denies bowel movements. She is tolerating her full liquid diet, will advance. Patient has been working with PT and getting out of bed. She believes blister on heel is improving. SHe has no complaints at this time. Objective - Vital Signs/Intake and Output Vital Signs (last 24 hours): Temp Pulse Resp BP Pulse Ox 97.6 F 70 18 162/70 H 97 03/07/18 06:00 03/07/18 06:00 03/07/18 06:00 03/07/18 06:00 03/07/18 06:00 Intake and Output: 03/07/18 03/07/18 06:59 18:59 Intake Total 1665 Output Total 1400 Balance 265 - Medications Medications: Current Medications Acetaminophen (Tylenol 325mg Tab) 650 mg PO Q6 PRN PRN Reason: Fever >100.4 F Last Admin: 03/03/18 17:56 Dose: 650 mg Amiodarone HCl (Cordarone) [address] [facility] Last Admin: 03/06/18 10:42 Dose: 200 mg Arformoterol Tartrate (Brovana) [address] [facility] Last Admin: 03/06/18 20:00 Dose: 15 mcg Atorvastatin Calcium (Lipitor) [address] [facility] Last Admin: 03/06/18 18:31 Dose: 20 mg Enoxaparin Sodium (Lovenox) [address] [facility] PRN Reason: Protocol Last Admin: 03/06/18 10:42 Dose: 30 mg Escitalopram Oxalate (Lexapro) [address] [facility] Last Admin: 03/06/18 10:42 Dose: 10 mg Home Med (Home Med) 1 unit INH Q4 PRN PRN Reason: Wheezing Last Admin: 03/05/18 03:03 Dose: 1 unit Hydrochlorothiazide (Hydrodiuril) [address] [facility] Last Admin: 03/03/18 09:43 Dose: Not Given Hydromorphone HCl (Dilaudid) 1 mg IVP Q4H PRN PRN Reason: Pain, severe (8-10) Last Admin: 03/06/18 21:28 Dose: 1 mg Potassium Chloride 20 meq/ (Dextrose/Sodium Chloride) 1,010 mls @ 85 mls/hr IV .[id number] [facility] Last Admin: 03/06/18 18:31 Dose: 85 mls/hr Metoprolol Tartrate (Lopressor) [address] [facility] Last Admin: 03/03/18 18:36 Dose: Not Given Montelukast Sodium (Singulair) [address] [facility] Last Admin: 03/06/18 21:29 Dose: 10 mg Umeclidinium [place] [Incruse Ellipta] (Home Med) [address] [facility] Last Admin: 03/05/18 10:10 Dose: 1 puff Fluticasone Propionate [Flovent Hfa] (Home Med) [address] [facility] Last Admin: 03/06/18 10:42 Dose: 1 puff Ondansetron HCl (Zofran Inj) 4 mg IVP Q6 PRN PRN Reason: Nausea/Vomiting Pantoprazole Sodium (Protonix Ec Tab) [address] [facility] Last Admin: 03/07/18 08:21 Dose: 40 mg Potassium Chloride (Klor-Con 10) [address] [facility] Last Admin: 03/07/18 08:21 Dose: 10 meq - Labs Labs: 03/06/18 07:00 03/06/18 07:00 - Additional Findings Additional findings: - Constitutional Appears: Non-toxic, No Acute Distress - Head Exam Head Exam: ATRAUMATIC, NORMOCEPHALIC - Eye Exam Eye Exam: EOMI - ENT Exam ENT Exam: Mucous Membranes Moist - Respiratory Exam Respiratory Exam: NORMAL BREATHING PATTERN - Cardiovascular Exam Cardiovascular Exam: REGULAR RHYTHM - GI/Abdominal Exam GI & Abdominal Exam: Soft. absent: Firm, Guarding, Rigid, Tenderness Additional comments: surgical site well approximated, non-tender, non-erythematous - Neurological Exam Neurological Exam: Alert, Awake - Psychiatric Exam Psychiatric exam: Normal Affect, Normal Mood - Skin Skin Exam: Warm, Dry, Intact Additional comments: large blister on right heel Assessment and Plan - Assessment and Plan (Free Text) Assessment: 77F s/p right hemicolectomy POD#5 Plan: Transfusing 2 units PRBC f/u post-transfusion CBC Soft diet, ADAT Ensure supplements Out of bed to chair/Ambulation/IS Physical therapy Podiatry recommendations, help appreciated Discussed with Dr. Fran Lroa PGY2
[2018-03-07] MEDS: Arformoterol 15 mcg/2 ml Inh Sol IH SCH (08:32)
[2018-03-07 09:07] LABS: MEAN CELL VOLUME 84.4 fl (80.0-105.0); MEAN CORPUSCULAR HEMOGLOBIN 27.6 pg (25.0-35.0); MEAN CORPUSCULAR HGB CONC 32.7 g/dl (31.0-37.0); MEAN PLATELET VOLUME 9.8 fl (7.0-11.0); RBC 3.66 10^6/uL (3.5-6.1); RED CELL DISTRIBUTION WIDTH 15.5 % (11.5-14.5); WHITE BLOOD COUNT 5.6 10^3/ul (4.5-11.0)
[2018-03-07 09:23] LABS: HEMOGLOBIN 10.1 g/dL (12.0-16.0)
[2018-03-07] MEDS: UMECLIDINIUM BROMIDE IH SCH (09:59)
[2018-03-07] MEDS: FLUTICASONE PROPIONATE IH SCH ×2 (09:59→17:29)
[2018-03-07] MEDS: Enoxaparin 30 mg Syringe SC SCH (09:59)
--- NOTE | 2018-03-07 13:41 | CP.PCM.CON ---
<Tad Alcaraz - Last Filed: 03/07/18 13:37> History of Present Illness - History of Present Illness History of Present Illness: Consult note for Dr. Denson 77F seen at bedside complaining of painful posterior right heel blister. Patient states that blister began following her admission to the hospital five days ago. She says that it is painful to touch and she is unable to place any weight on it while laying in bed. She says that it has gradually gotten larger and larger over the last few days. She has not tried anything to alleviate her pain. She is AAO x 3 and NAD at time of visit. Denies any acuter overnight events or new pedal complaints at this time. Denies any recent N/V/F/C/CP/SOB/D/ posterior calf pain when squeezed. Review of Systems - Review of Systems All systems: reviewed and no additional remarkable complaints except Review of Systems: as per HPI Past Patient History - Infectious Disease Hx of Infectious Diseases: None - Past Social History Smoking Status: Former Smoker - CARDIAC Hx Cardiac Disorders: Yes (cabg triple 2012 nbi) Hx Hypercholesterolemia: Yes Hx Hypertension: Yes - PULMONARY Hx Chronic Obstructive Pulmonary Disease (COPD): Yes - NEUROLOGICAL Hx Neurological Disorder: No - HEENT Hx HEENT Problems: Yes (reading glasses) Hx Cataracts: Yes (cataract sx b/l lens implant age 52) - HEMATOLOGICAL/ONCOLOGICAL Hx Cancer: Yes (r breas tbx 01/12/18) Other/Comment: recently dx with r breast ca had lumpectomy 01/12/18 has not started treatment yet due to todays sx - INTEGUMENTARY Hx Dermatological Problems: (ttoos) Other/Comment: b/l arms multiple eccymotic areas "I bruise easily. I'm on blood thinners" - MUSCULOSKELETAL/RHEUMATOLOGICAL Hx Arthritis: Yes - GASTROINTESTINAL Hx Gastroesophageal Reflux: Yes Other/Comment: pt denies colon polyps, pt had stomach polypectomy, hx gastroenteritis, recent colonoscopy 02/16/18 + large polyp - GENITOURINARY/GYNECOLOGICAL Hx Genitourinary Disorders: No - PSYCHIATRIC Hx Psychophysiologic Disorder: Yes Hx Anxiety: Yes Hx Emotional Abuse: No Hx Physical Abuse: No Hx Substance Use: No - SURGICAL HISTORY Hx Surgeries: Yes Hx Cardiac Catheterization: Yes Hx Hysterectomy: Yes Other/Comment: 03/02/18 cystoscope with b/l ureteral stents, laparoscope r hemicolectomy, abd umbilical hernia repair by dr ahsan dubose r breast lumpectomy 01/12/18 - ANESTHESIA Hx Anesthesia Reactions: No Hx Malignant Hyperthermia: No Meds Allergies/Adverse Reactions: Allergies Allergy/AdvReac Type Severity Reaction Status Date / Time aspirin AdvReac Unknown WHEEZING Verified 02/14/18 11:26 - Medications Medications: Current Medications Acetaminophen (Tylenol 325mg Tab) 650 mg PO Q6 PRN PRN Reason: Fever >100.4 F Last Admin: 03/03/18 17:56 Dose: 650 mg Amiodarone HCl (Cordarone) 200 mg PO DAILY [facility] BEDS [facility] Last Admin: 03/07/18 09:59 Dose: 200 mg Arformoterol Tartrate (Brovana) 15 mcg IH BIDRESP COUNTS [facility]CLUDE 234 BEDS [facility] Last Admin: 03/07/18 08:32 Dose: 15 mcg Atorvastatin Calcium (Lipitor) 20 mg PO DIN [facility] 234 BEDS [facility] Last Admin: 03/06/18 18:31 Dose: 20 mg Docusate Sodium (Colace) 100 mg PO BID [facility] 234 BEDS [facility] Last Admin: 03/07/18 09:58 Dose: 100 mg Enoxaparin Sodium (Lovenox) 30 mg SC DAILY [facility] 234 BEDS [facility] PRN Reason: Protocol Last Admin: 03/07/18 09:59 Dose: 30 mg Escitalopram Oxalate (Lexapro) 10 mg PO DAILY [facility] 234 B[facility]S [facility] Last Admin: 03/07/18 09:58 Dose: 10 mg Home Med (Home Med) 1 unit INH Q4 PRN PRN Reason: Wheezing Last Admin: 03/05/18 03:03 Dose: 1 unit Hydrochlorothiazide (Hydrodiuril) 25 mg PO DAILY [facility] 234 BEDS [facility] Last Admin: 03/03/18 09:43 Dose: Not Given Hydromorphone HCl (Dilaudid) 1 mg IVP Q4H PRN PRN Reason: Pain, severe (8-10) Last Admin: 03/06/18 21:28 Dose: 1 mg Potassium Chloride 20 meq/ (Dextrose/Sodium Chloride) 1,010 mls @ 85 mls/hr IV .[id number] [facility]S [facility] 234 BEDS [facility] Last Admin: 03/06/18 18:31 Dose: 85 mls/hr Metoprolol Tartrate (Lopressor) 50 mg PO BID [facility] 234 BEDS [facility] Last Admin: 03/03/18 18:36 Dose: Not Given Montelukast Sodium (Singulair) 10 mg PO HS [facility]S [facility]CLUDE 234 BEDS [facility] Last Admin: 03/06/18 21:29 Dose: 10 mg Umeclidinium [place] [Incruse Ellipta] (Home Med) 1 puff IH DAILY [facility]CLUDE 234 BEDS AT [facility] Last Admin: 03/07/18 09:59 Dose: 1 puff Fluticasone Propionate [Flovent Hfa] (Home Med) 1 puff IH BID [facility] 234 BEDS AT [facility] Last Admin: 03/07/18 09:59 Dose: 1 puff Ondansetron HCl (Zofran Inj) 4 mg IVP Q6 PRN PRN Reason: Nausea/Vomiting Pantoprazole Sodium (Protonix Ec Tab) 40 mg PO ACB [facility] 234 BEDS [facility] Last Admin: 03/07/18 08:21 Dose: 40 mg Potassium Chloride (Klor-Con 10) 10 meq PO BRK COUNTS INCLUDE 234 BEDS AT [facility] Last Admin: 03/07/18 08:21 Dose: 10 meq Physical Exam - Constitutional Appears: Well, Non-toxic, No Acute Distress - Extremities Exam Additional comments: RLE focused exam: Vasc: DP/PT pulses fully palpable 2/4 b/l. Skin temperature warm to warm from proximal to distal. CFT < 3 seconds to all digits b/l. No edema noted b/l Neuro: Epicritic and protective sensation grossly intact b/l Derm: Posterior right heel blister with circumference of roughly 6 cm seen. No erythema, no drainage, no other clinical signs of infection. No other open lesions, wounds, maceration, xerosis, abnormal pigmentation or abnormal growths noted b/l MSK: Pain with palpation of blister site. B/l HAV deformities noted. No other gross deformities noted. ROM WNL to all major joints b/l. MMT 5/5 in all major muscle groups b/l - Neurological Exam Neurological exam: Alert, Oriented x3 - Psychiatric Exam Psychiatric exam: Normal Affect, Normal Mood Results - Vital Signs Recent Vital Signs: Last Vital Signs Temp 97.6 F 03/07/18 06:00 Pulse 72 03/07/18 09:59 Resp 18 03/07/18 06:00 BP 155/67 H 03/07/18 09:59 Pulse Ox 97 03/07/18 06:00 - Labs Result Diagrams: 03/07/18 08:50 03/06/18 07:00 Labs: Laboratory Results - last 24 hr 03/06/18 03/06/18 03/07/18 16:47 19:05 08:50 WBC 5.6 RBC 3.66 Hgb 10.1 L D Hct 30.9 L MCV 84.4 MCH 27.6 MCHC 32.7 RDW 15.5 H Plt Count 202 MPV 9.8 POC Glucose (mg/dL) 103 Blood Type O POSITIVE Antibody Screen Negative Crossmatch See Detail BBK History Checked Patient has bt Assessment & Plan - Assessment and Plan (Free Text) Assessment: 77F seen for posterior right heel blister Plan: Patient seen and evaluated with attending Dr. Denson Afebrile, absent leukocytosis Right heel blister lanced with suture removal scissors but not deroofed Approximatly 4 cc of yellow fluid expressed from the blister site without malodor or blood noted Wound dressed with xeroform, gauze, ABD, kirlix Surgical shoe ordered to be worn on right foot at all times No plan for surgical intervention from podiatric [facility] Patient stable from podiatry standpoint Podiatry will sign off at this time Please reconsult in future as necessary - Date & Time Date: 03/07/18 Time: 13:50 <Angel Denson - Last Filed: 03/07/18 16:47> Meds - Medications Medications: Current Medications Acetaminophen (Tylenol 325mg Tab) 650 mg PO Q6 PRN PRN Reason: Fever >100.4 F Last Admin: 03/03/18 17:56 Dose: 650 mg Amiodarone HCl (Cordarone) 200 mg PO DAILY [facility]CLUDE 234 BEDS AT [facility] Last Admin: 03/07/18 09:59 Dose: 200 mg Arformoterol Tartrate (Brovana) 15 mcg IH BIDRESP COUNTS INCLUDE 234 BEDS AT [facility] Last Admin: 03/07/18 08:32 Dose: 15 mcg Atorvastatin Calcium (Lipitor) 20 mg PO DIN COUNTS INCLUDE 234 BEDS AT [facility] Last Admin: 03/06/18 18:31 Dose: 20 mg Docusate Sodium (Colace) 100 mg PO BID [facility]S INCLUDE 234 BEDS AT [facility] Last Admin: 03/07/18 09:58 Dose: 100 mg Enoxaparin Sodium (Lovenox) 30 mg SC DAILY [facility] PRN Reason: Protocol Last Admin: 03/07/18 09:59 Dose: 30 mg Escitalopram Oxalate (Lexapro) 10 mg PO DAILY [facility]S [facility]CLUDE 234 BEDS AT [facility] Last Admin: 03/07/18 09:58 Dose: 10 mg Home Med (Home Med) 1 unit INH Q4 PRN PRN Reason: Wheezing Last Admin: 03/05/18 03:03 Dose: 1 unit Hydrochlorothiazide (Hydrodiuril) 25 mg PO DAILY [facility] INCLUDE 234 BEDS AT [facility] Last Admin: 03/03/18 09:43 Dose: Not Given Hydromorphone HCl (Dilaudid) 1 mg IVP Q4H PRN PRN Reason: Pain, severe (8-10) Last Admin: 03/06/18 21:28 Dose: 1 mg Potassium Chloride 20 meq/ (Dextrose/Sodium Chloride) 1,010 mls @ 85 mls/hr IV .[id number] COUNTS INCLUDE 234 BEDS AT [facility] Last Admin: 03/06/18 18:31 Dose: 85 mls/hr Metoprolol Tartrate (Lopressor) 50 mg PO BID COUNTS INCLUDE 234 BEDS AT [facility] Last Admin: 03/03/18 18:36 Dose: Not Given Montelukast Sodium (Singulair) 10 mg PO HS COUNTS INCLUDE 234 BEDS AT [facility] Last Admin: 03/06/18 21:29 Dose: 10 mg Umeclidinium [place] [Incruse Ellipta] (Home Med) 1 puff IH DAILY COUNTS INCLUDE 234 BEDS AT [facility] Last Admin: 03/07/18 09:59 Dose: 1 puff Fluticasone Propionate [Flovent Hfa] (Home Med) 1 puff IH BID COUNTS INCLUDE 234 BEDS AT [facility] Last Admin: 03/07/18 09:59 Dose: 1 puff Ondansetron HCl (Zofran Inj) 4 mg IVP Q6 PRN PRN Reason: Nausea/Vomiting Pantoprazole Sodium (Protonix Ec Tab) 40 mg PO ACB COUNTS INCLUDE 234 BEDS AT [facility] Last Admin: 03/07/18 08:21 Dose: 40 mg Potassium Chloride (Klor-Con 10) 10 meq PO BRK COUNTS INCLUDE 234 BEDS AT [facility] Last Admin: 03/07/18 08:21 Dose: 10 meq Results - Vital Signs Recent Vital Signs: Last Vital Signs Temp 98.8 F 03/07/18 14:00 Pulse 68 03/07/18 14:00 Resp 20 03/07/18 14:00 BP 141/69 03/07/18 14:00 Pulse Ox 93 L 03/07/18 14:00 - Labs Result Diagrams: 03/07/18 08:50 03/06/18 07:00 Labs: Laboratory Results - last 24 hr 03/06/18 03/06/18 03/07/18 16:47 19:05 08:50 WBC 5.6 RBC 3.66 Hgb 10.1 L D Hct 30.9 L MCV 84.4 MCH 27.6 MCHC 32.7 RDW 15.5 H Plt Count 202 MPV 9.8 POC Glucose (mg/dL) 103 Blood Type O POSITIVE Antibody Screen Negative Crossmatch See Detail BBK History Checked Patient has bt Attending/Attestation - Attestation I have personally seen and examined this patient.: Yes I have fully participated in the care of the patient.: Yes I have reviewed all pertinent clinical information: Yes
[2018-03-07 14:23] VITALS: BP 141/69; PULSE 68; RESP 20; TEMP 98.8; O2SAT 93
--- NOTE | 2018-03-07 18:06 | CP.PCM.DIS ---
Provider - Provider Date of Admission: 03/02/18 06:10 Attending physician: Theo Peters MD Primary care physician: Michael Mullen MD Consults: Podiatry: Tamiko Time Spent in preparation of Discharge (in minutes): 45 Diagnosis - Discharge Diagnosis (1) S/P right hemicolectomy Status: Acute Hospital Course - Lab Results Lab Results: Micro Results 03/02/18 06:30 Nose MRSA Culture (Admit) - Final MRSA NOT DETECTED Most Recent Lab Values WBC 5.6 10^3/ul (4.5-11.0) 03/07/18 08:50 RBC 3.66 10^6/uL (3.5-6.1) 03/07/18 08:50 Hgb 10.1 g/dL (12.0-16.0) L D 03/07/18 08:50 Hct 30.9 % (36.0-48.0) L 03/07/18 08:50 MCV 84.4 fl (80.0-105.0) 03/07/18 08:50 MCH 27.6 pg (25.0-35.0) 03/07/18 08:50 MCHC 32.7 g/dl (31.0-37.0) 03/07/18 08:50 RDW 15.5 % (11.5-14.5) H 03/07/18 08:50 Plt Count 202 10^3/uL (120.0-450.0) 03/07/18 08:50 MPV 9.8 fl (7.0-11.0) 03/07/18 08:50 Gran % 71.9 % (50.0-68.0) H 03/06/18 07:00 Lymph % (Auto) 8.1 % (22.0-35.0) L 03/06/18 07:00 Woods % (Auto) 15.1 % (1.0-6.0) H 03/06/18 07:00 Eos % (Auto) 4.3 % (1.5-5.0) 03/06/18 07:00 Baso % (Auto) 0.6 % (0.0-3.0) 03/06/18 07:00 Gran # 3.53 (1.4-6.5) 03/06/18 07:00 Lymph # (Auto) 0.4 (1.2-3.4) L 03/06/18 07:00 [place] # (Auto) 0.7 (0.1-0.6) H 03/06/18 07:00 Eos # (Auto) 0.2 (0.0-0.7) 03/06/18 07:00 Baso # (Auto) 0.03 K/mm3 (0.0-2.0) 03/06/18 07:00 Sodium 139 mmol/L (132-148) 03/06/18 07:00 Potassium 4.4 mmol/L (3.6-5.0) 03/06/18 07:00 Chloride 106 mmol/L (98-107) 03/06/18 07:00 Carbon Dioxide 27 mmol/L (21-33) 03/06/18 07:00 Anion Gap 10 (10-20) 03/06/18 07:00 BUN 8 mg/dL (7-21) 03/06/18 07:00 Creatinine 0.8 mg/dl (0.7-1.2) 03/06/18 07:00 Est GFR ( Amer) > 60 03/06/18 07:00 Est GFR (Non-Af Amer) > 60 03/06/18 07:00 POC Glucose (mg/dL) 103 mg/dL (65-110) 03/06/18 16:47 Random Glucose 122 mg/dL (70-110) H 03/06/18 07:00 Calcium 8.8 mg/dL (8.4-10.5) 03/06/18 07:00 Phosphorus 3.1 mg/dL (2.5-4.5) 03/04/18 06:30 Magnesium 1.8 mg/dL (1.7-2.2) 03/04/18 06:30 Blood Type O POSITIVE 03/06/18 19:05 Antibody Screen Negative 03/06/18 19:05 Crossmatch See Detail 03/06/18 19:05 BBK History Checked Patient has bt 03/06/18 19:05 Discharge Exam - Head Exam Head Exam: ATRAUMATIC, NORMOCEPHALIC - Eye Exam Eye Exam: EOMI, Normal appearance Pupil Exam: PERRL - ENT Exam ENT Exam: Mucous Membranes Moist - Respiratory Exam Respiratory Exam: NORMAL BREATHING PATTERN - Cardiovascular Exam Cardiovascular Exam: REGULAR RHYTHM - GI/Abdominal Exam GI & Abdominal Exam: Normal Bowel Sounds, Soft. absent: Tenderness Additional comments: surgical site well approximated - clean, dry, intact - Extremities Exam Extremities exam: normal capillary refill, pedal pulses present - Back Exam Back exam: CVA tenderness (L), CVA tenderness (R) - Neurological Exam Neurological exam: Alert, CN II-XII Intact, Oriented x3 - Psychiatric Exam Psychiatric exam: Normal Affect, Normal Mood - Skin Skin Exam: Dry, Intact, Normal Color, Warm Additional comments: R heel with large blister Discharge Plan - Follow Up Plan Condition: GOOD Disposition: HOME/ ROUTINE Instructions: Pneumonia in Adults, Cystoscopy, Hernia Repair (DC), Colectomy, Laparoscopic Surgery Additional Instructions: Follow up with primary care provider. Follow up with Dr. Peters within 1 week. Follow up with Dr. Morrison within 1 week. Return to Local ER if symptoms worsen. Referrals: Michael Mullen MD [Primary Care Provider] -
--- NOTE | 2018-03-13 07:33 | OP ---
Copied To: Theo Peters MD Attending MD: Theo Peters MD PROCEDURE DATE: 03/02/2018 PREOPERATIVE DIAGNOSIS: Tumor of the cecum. POSTOPERATIVE DIAGNOSIS: Tumor of the cecum. PROCEDURE: Laparoscopy followed by right hemicolectomy. DESCRIPTION OF PROCEDURE: In the operating room, the patient was identified by name, name of procedure, laterality, my ayo and consent. The patient had colonoscopy by Dr. Burr that was unremarkable except for polyps and the pathology was benign. An umbilical incision was made through the skin and subcutaneous tissues. The plan to extend it laterally. This allowed an open access to the abdomen. Using the laparoscope, the abdomen was explored. There was a firmness in the cecum. The abdomen is otherwise unremarkable, specifically the liver and left lower quadrant. A suprapubic and left lower quadrant incisions were made, 5-mm trocars were placed. During on the cecum and then at the hepatic flexure using Harmonic scalpel, we were able to lyse the adhesions very nicely and fold the cecum freely and nicely. Once this was done to my satisfaction, a small transverse incision was made that was extended laterally at least twice to allow the completion of the operation. Cecum was brought up into the wound and cleaned laterally and bluntly. The distal end was divided with a MELECIO as was the small bowel . The mesentery was then serially taken with the Harmonic scalpel. Specimen removed. With 2 and 3 silks were placed, the MELECIO was run and fired through the nips at the end and the incisions were closed with a TA60, mesentery was closed with Vicryl. Abdomen was irrigated and dried. The incision was closed in the posterior layer of 0 Vicryl and the anterior layer of #1 PDS on a loop. The wound was injected Marcaine and subcutaneous tissue was closed with Vicryl, skin was closed with phoebe. Light pressure dressing was placed. The patient was taken to the recovery room in good condition after the sponge and needle counts were declared as correct. Theo Peters MD
== END 2018-03-07 18:42 | disposition home or self-care (01) | DRG 331 ==
LOC: EDSTATUS 07:30 → SDAINP 03-02 06:10 → 5RNO 03-02 13:15
PROVIDERS: ADMIT Surgery; ATTEND Surgery
PROC: 3E0F7GC Introduction of Other Therapeutic Substance into Respiratory Tract, Via Natural or Artificial Opening (ICD-10-PCS; 2018-03-02)
PROC: 0DTF0ZZ Resection of Right Large Intestine, Open Approach (ICD-10-PCS; principal; 2018-03-02 07:30)
PROC: 0WQF0ZZ Repair Abdominal Wall, Open Approach (ICD-10-PCS; 2018-03-02 07:30)
PROC: 0T788DZ Dilation of Bilateral Ureters with Intraluminal Device, Via Natural or Artificial Opening Endoscopic (ICD-10-PCS; 2018-03-02 07:30)
PROC: 30233N1 Transfusion of Nonautologous Red Blood Cells into Peripheral Vein, Percutaneous Approach (ICD-10-PCS; 2018-03-06)
DX: D12.0 Benign neoplasm of cecum (principal); D50.0 Iron deficiency anemia secondary to blood loss (chronic); N81.10 Cystocele, unspecified; N30.20 Other chronic cystitis without hematuria; J43.9 Emphysema, unspecified; I25.10 Atherosclerotic heart disease of native coronary artery without angina pectoris; I10 Essential (primary) hypertension; C50.919 Malignant neoplasm of unspecified site of unspecified female breast; E78.00 Pure hypercholesterolemia, unspecified; S90.821A Blister (nonthermal), right foot, initial encounter; K42.9 Umbilical hernia without obstruction or gangrene; Z95.1 Presence of aortocoronary bypass graft; Z87.891 Personal history of nicotine dependence

== ENCOUNTER 2018-04-24 10:56 | Day surgery (SDC) | payer MEDICARE, MEDICAID ==
[2018-04-24 08:54] VITALS: BMI 26.2
[2018-04-24 11:37] LABS: BASO # 0.02 K/mm3 (0.0-2.0); BASO % 0.3 % (0.0-3.0); EOS # 0.3 (0.0-0.7); EOS % 3.9 % (1.5-5.0); GRAN # 5.06 (1.4-6.5); GRAN % 67.5 % (50.0-68.0); HEMOGLOBIN 11.7 g/dL (12.0-16.0); LYMPH # 1.6 (1.2-3.4); LYMPH % 20.9 % (22.0-35.0); MEAN CELL VOLUME 88.6 fl (80.0-105.0); MEAN CORPUSCULAR HEMOGLOBIN 28.5 pg (25.0-35.0); MEAN CORPUSCULAR HGB CONC 32.1 g/dl (31.0-37.0); MEAN PLATELET VOLUME 9.6 fl (7.0-11.0); MONO # 0.6 (0.1-0.6); MONO % 7.4 % (1.0-6.0); RBC 4.11 10^6/uL (3.5-6.1); RED CELL DISTRIBUTION WIDTH 17.1 % (11.5-14.5); WHITE BLOOD COUNT 7.5 10^3/ul (4.5-11.0)
[2018-04-24 11:45] LABS: BLOOD UREA NITROGEN 17 mg/dL (7-21); CALCIUM 9.9 mg/dL (8.4-10.5); GFR NON-AFRICAN AMERICAN > 60
[2018-04-24 11:46] LABS: INR 0.97; PARTIAL THROMBOPLASTIN TIME 29.9 Seconds (25.1-36.5); PROTHROMBIN TIME 11.1 SECONDS (9.4-12.5)
[2018-04-24] MEDS ORDERED: Lidocaine PF 2% (5 ml) Inj (For Cardiac Arrhy) ONE (12:49)
[2018-04-24] MEDS ORDERED: Midazolam 2 MG/2 ML VIAL ONE ×2 (14:49→15:04)
[2018-04-24] MEDS ORDERED: Oxycodone/Acetaminophen 5/325 mg Tab PO PRN (15:38)
[2018-04-24] MEDS ORDERED: Sodium Chloride 0.45% 1,000 ML IV SCH (15:45)
[2018-04-24 16:39] VITALS: RESP 18; TEMP 98.1
[2018-04-24 17:29] VITALS: BP 139/80; PULSE 59; O2SAT 97
--- NOTE | 2018-04-24 18:51 | VASCULAR ---
PROCEDURE: Ultrasound and fluoroscopic right internal jugular venous access port. CLINICAL HISTORY: Breast carcinomavenous port for chemotherapy. PHYSICIAN(S): Dallas Denise M.D. TECHNIQUE: The relative risks and indications of the procedure were explained to the patient and consent obtained. The patient was placed supine on the arteriogram table and the right neck and chest prepped and draped in the usual sterile fashion. Conscious sedation monitoring was provided throughout the procedure by a nurse. Antibiotics were given prior to the procedure. Under direct ultrasound guidance, the right internal jugular vein was punctured with a micro-puncture set. A 0.035 angled Glidewire was advanced into the IVC. A 4 cm incision was made below the right clavicle and the pocket blunted dissected. A 8 Albanian single-lumen catheter, 23 cm long, was advanced to the SVC/RA junction. The catheter was trimmed and attached to the port. The port aspirates and injects easily. The port was placed in the pocket and closed in 2 layers. The patient tolerated the procedure well. IMPRESSION: Ultrasound and fluoroscopically placed right internal jugular venous access port.
== END 2018-04-24 17:30 | disposition home or self-care (01) ==
LOC: SDS 10:56
PROVIDERS: ATTEND Radiology Vascular & Interventional Radiology
DX: C50.919 Malignant neoplasm of unspecified site of unspecified female breast (principal); I10 Essential (primary) hypertension; E78.5 Hyperlipidemia, unspecified; I25.10 Atherosclerotic heart disease of native coronary artery without angina pectoris; Z95.1 Presence of aortocoronary bypass graft; Z87.891 Personal history of nicotine dependence
CPT/HCPCS: 36415; 36561; 76937; 77001; 80048; 85025; 85610; 85730; 99152; 99153; C1769; C1788; J0690; J1644; J2250; J2405; J3010; J7030

== ENCOUNTER 2018-07-02 11:32 | Inpatient (IN) | payer MEDICARE, MEDICAID ==
[2018-07-02 11:40] VITALS: BMI 26.6
[2018-07-02] MEDS ORDERED: Albuterol-Ipratrop 3 mg / 0.5 (3 ml) UD IH STA (11:40)
--- NOTE | 2018-07-02 11:45 | ED PDOC ---
Arrival/HPI - General Chief Complaint: Shortness Of Breath Time Seen by Provider: 07/02/18 11:34 Historian: Patient, Family - History of Present Illness Time/Duration: Other (Several days) Symptom Onset: Gradual Symptom Course: Worsening Severity Level: Moderate Activities at Onset: Rest Associated Symptoms (Text): 07/02/18 11:42 Patient complains of a several day history of a cough congestion and URI wheezing and increasing shortness of breath. No fever or chills. She is due for chemotherapy for breast cancer tomorrow. She does have a port. No chest pain. No fever or chills. There is new bilateral lower extremity edema. Past Medical History - Infectious Disease Hx of Infectious Diseases: None - Cardiac Hx Pacemaker: No - Pulmonary Hx Chronic Obstructive Pulmonary Disease (COPD): Yes - Neurological Hx Paralysis: No - HEENT Hx HEENT Disorder: Yes (reading glasses) Hx Cataracts: Yes (cataract sx b/l lens implant age 52) - Hematological/Oncological Hx Blood Transfusions: No Hx Blood Transfusion Reaction: No - Integumentary Hx Dermatological Disorder: (ttoos) Other/Comment: b/l arms multiple eccymotic areas "I bruise easily. I'm on blood thinners" - Musculoskeletal/Rheumatological Hx Musculoskeletal Disorders: Yes (pinched nerve) - Gastrointestinal Hx Gastroesophageal Reflux: Yes Other/Comment: pt denies colon polyps, pt had stomach polypectomy, hx gastroenteritis, recent colonoscopy 02/16/18 + large polyp - Genitourinary/Gynecological Hx Genitourinary Disorders: No - Psychiatric Hx Emotional Abuse: No Hx Physical Abuse: No Hx Substance Use: No - Surgical History Hx Cardiac Catheterization: Yes Hx Hysterectomy: Yes Other/Comment: 03/02/18 cystoscope with b/l ureteral stents, laparoscope r hemicolectomy, abd umbilical hernia repair by fidel wise breast lumpectomy 01/12/18 - Anesthesia Hx Anesthesia Reactions: No Hx Malignant Hyperthermia: No - Suicidal Assessment Feels Threatened In Home Enviroment: No Family/Social History - Physician Review Nursing Documentation Reviewed: Yes Family/Social History: Unknown Family HX Smoking Status: Former Smoker (Quit smoking 40 years ago) Hx Alcohol Use: No Hx Substance Use: No Hx Substance Use Treatment: No Allergies/Home Meds Allergies/Adverse Reactions: Allergies No Known Allergies Allergy (Verified 07/02/18 11:56) Home Medications: Home Meds Medication Instructions Recorded Confirmed Arformoterol Tartrate [Brovana] 1 alfie NEB BID 11/08/12 04/24/18 Atorvastatin Calcium [Lipitor] 20 mg PO DAILY 11/08/12 04/24/18 Albuterol HFA [Ventolin HFA 90 1 puff IH PRN PRN 12/15/16 04/24/18 mcg/actuation (8 g)] Metoprolol Tartrate [Lopressor] 50 mg PO BID 12/18/16 04/24/18 Pantoprazole Sodium [Protonix] 40 mg PO ACB 12/18/16 04/24/18 hydroCHLOROthiazide [Hydrodiuril] 25 mg PO DAILY 12/18/16 04/24/18 Escitalopram [Lexapro] 10 mg PO DAILY 03/21/17 04/24/18 Fluticasone Propionate [Flovent 1 puff IH BID 03/21/17 04/24/18 Hfa] Umeclidinium Coleman [Incruse 1 puff IH DAILY 03/21/17 04/24/18 Ellipta] Amiodarone [Cordarone] 200 mg PO DAILY 02/14/18 04/24/18 Aspirin [Ecotrin] 81 mg PO DAILY 02/14/18 04/24/18 Montelukast [Singulair] 10 mg PO HS 02/14/18 04/24/18 Review of Systems - Physician Review All systems were reviewed & negative as marked: Yes - Review of Systems Constitutional: Fatigue. absent: Fevers Respiratory: SOB, Cough, Wheezing. absent: Sputum Cardiovascular: absent: Chest Pain, Palpitations, Syncope Gastrointestinal: absent: Abdominal Pain, Nausea, Vomiting Genitourinary Female: absent: Dysuria, Frequency, Hematuria Neurological: absent: Headache, Dizziness, Focal Weakness Physical Exam Temperature: Afebrile Blood Pressure: Normal Pulse: Regular Respiratory Rate: Normal Appearance: Positive for: Well-Appearing, Non-Toxic, Uncomfortable Pain Distress: None Mental Status: Positive for: Alert and Oriented X 3 - Systems Exam Head: Present: Atraumatic, Normocephalic Pupils: Present: PERRL Extroacular Muscles: Present: EOMI Conjunctiva: Present: Normal Ears: Present: NORMAL TM, Normal Canal. No: Erythema, TM Bulging Mouth: Present: Moist Mucous Membranes Pharnyx: No: ERYTHEMA, EXUDATE, TONSILS ENLARGED Neck: Present: Normal Range of Motion Respiratory/Chest: Present: Wheezes, Decreased Breath Sounds, Rhonchi. No: Respiratory Distress, Accessory Muscle Use, Rales, Retracting, Tachypneic, Tender to Palpation Cardiovascular: Present: Regular Rate and Rhythm Abdomen: No: Tenderness, Distention, Peritoneal Signs, Rebound, Guarding Back: Present: Normal Inspection Upper Extremity: Present: Normal Inspection. No: Cyanosis, Edema Lower Extremity: Present: Edema (2+ bilateral lower extremity edema) Neurological: Present: GCS=15, CN II-XII Intact, Speech Normal, Motor Func Grossly Intact Skin: Present: Warm, Dry, Pale. No: Rashes Psychiatric: Present: Alert, Oriented x 3, Normal Insight, Normal Concentration Medical Decision Making ED Course and Treatment: 07/02/18 11:44 EKG shows normal sinus rhythm rate approximately 60 with a right bundle branch block and no acute ST or T-wave changes. 07/02/18 13:15 Patient continues to have mild wheezing, though she does report she feels better. Her Dopplers are negative for DVT although her dimer is mildly elevated. She does have an elevated BNP and is given a low dose of IV Lasix. Discussed with who will place on telemetry observation. Consultation with oncology pulmonary and cardiology. - RAD Interpretation Radiology Orders: 07/02/18 11:40 DUPLEX LOWER EXTRM VEIN BILAT [US] Stat 07/02/18 11:41 CHEST PORTABLE [RAD] Stat Chest one view shows a right sided line with no infiltrate effusion or cardiomegaly. Bilateral lower extremity venous Doppler as read by the radiologist is negative for DVT. Meter Reader Chief: ED Physician, Radiologist Disposition/Present on Arrival - Present on Arrival Any Indicators Present on Arrival: No History of DVT/PE: No History of Uncontrolled Diabetes: No Urinary Catheter: No History of Decub. Ulcer: No History Surgical Site Infection Following: None - Disposition Have Diagnosis and Disposition been Completed?: Yes Diagnosis: Chronic obstructive pulmonary disease, Congestive heart failure, Dyspnea, Anemia, Pedal edema, Breast cancer Disposition: HOSPITALIZED Disposition Time: 13:20 Patient Plan: Observation, Telemetry Condition: IMPROVED Discharge Instructions (ExitCare): Heart Failure (ED) Forms: [employer] (Slovenian)
[2018-07-02 12:36] LABS: BASO # 0.01 K/mm3 (0.0-2.0); BASO % 0.2 % (0.0-3.0); EOS % 0.2 % (1.5-5.0); GRAN # 3.93 (1.4-6.5); GRAN % 78.2 % (50.0-68.0); HEMOGLOBIN 9.1 g/dL (12.0-16.0); LYMPH # 0.6 (1.2-3.4); LYMPH % 11.3 % (22.0-35.0); MEAN CELL VOLUME 95.3 fl (80.0-105.0); MEAN CORPUSCULAR HEMOGLOBIN 30.5 pg (25.0-35.0); MONO # 0.5 (0.1-0.6); MONO % 10.1 % (1.0-6.0); RBC 2.98 10^6/uL (3.5-6.1); RED CELL DISTRIBUTION WIDTH 19.7 % (11.5-14.5)
[2018-07-02 12:37] LABS: ALB/GLOB RATIO 1.1 (1.1-1.8); ALBUMIN 2.8 g/dL (3.0-4.8); ALT/SGPT 34 U/L (7-56); AST/SGOT 20 U/L (14-36); BLOOD UREA NITROGEN 10 mg/dL (7-21); CALCIUM 8.5 mg/dL (8.4-10.5); GFR NON-AFRICAN AMERICAN > 60
[2018-07-02 12:40] LABS: INR 1.09; PARTIAL THROMBOPLASTIN TIME 27.4 Seconds (25.1-36.5); PROTHROMBIN TIME 12.5 SECONDS (9.4-12.5)
[2018-07-02 12:48] LABS: B-TYPE NATRIURETIC PEPTIDE 2690 pg/mL (0-450); TROPONIN I 0.02 ng/mL
[2018-07-02] MEDS ORDERED: Albuterol 0.083% Inhal Sol (2.5 mg/3 mL) UD INH STA (13:12)
--- NOTE | 2018-07-02 16:45 | RAD ---
Date of service: 07/02/2018 HISTORY: Comparison made with chest radiograph 03/03/2018 COMPARISON: No prior. FINDINGS: In situ right-sided MediPort LUNGS: The interstitial markings are slightly increased and coarsened. Mild bibasilar atelectasis or scarring. PLEURA: No significant pleural effusion identified, no pneumothorax apparent. CARDIOVASCULAR: . Minor aortic atherosclerotic calcification present. Sternotomy wires and CABG clips. Heart size within range of normal. No pulmonary vascular congestion. OSSEOUS STRUCTURES: No significant abnormalities. VISUALIZED UPPER ABDOMEN: Normal. OTHER FINDINGS: None. IMPRESSION: Increased/coarsened interstitial markings with mild bibasilar atelectasis and/or scarring
[2018-07-02] MEDS: cefTRIAXone 1 gm 1 GM/100 ML BAG IVPB SCH (18:39)
[2018-07-02] MEDS: Albuterol-Ipratrop 3 mg / 0.5 (3 ml) UD IH SCH (20:07)
[2018-07-02 20:17] LABS: URINE BILIRUBIN NEGATIVE (NEGATIVE); URINE BLOOD LARGE (NEGATIVE); URINE GLUCOSE (UA) NEGATIVE (NEGATIVE); URINE LEUKOCYTE ESTERASE NEGATIVE Leu/uL (NEGATIVE); URINE PROTEIN NEGATIVE mg/dL (<30 mg/dL); URINE UROBILINOGEN 0.2 E.U./dL (<1 E.U./dL)
[2018-07-02 20:42] LABS: URINE APPEARANCE CLEAR (CLEAR); URINE COLOR LIGHT YELLOW (YELLOW)
[2018-07-02 20:44] LABS: URINE BACTERIA MANY (NEG)
--- NOTE | 2018-07-02 22:21 | CARD ---
APPROVED REPORT Date of service: 07/02/2018 EKG Measurement Heart [id number] <Conclusion> Sinus bradycardia Left axis deviation Right bundle branch block Abnormal ECG
[2018-07-03] MEDS: Albuterol-Ipratrop 3 mg / 0.5 (3 ml) UD IH SCH ×4 (01:54→19:57)
--- NOTE | 2018-07-03 06:02 | CP.PCM.HP ---
History of Present Illness - History of Present Illness History of Present Illness: CC: cold for 2-3 days HPI: 78yo female PMHx HTN, CAD with CABG, COPD (not on home O2), CAP, breast ca on chemotherapy (4 of 12), multi level degenerative disc, anxiety, and GERD presented with a 2-3 day history of a cold and cough. Patient reports she felt "under the weather" and tired with body aches. She also complained of a "stuffy nose" and a cough with very little pale yellow phlegm but denied hemoptysis. Since she has been undergoing chemotherapy she decided to come in when her symptoms did not resolve. The patient denied any dyspnea at rest but did admit to dyspnea on ambulation [~10feet]. She denied any fever, chills, and night sweats. Patient did complain of feeling unsteady on her feet and having a fall a week ago. She denied hitting her head or any LOC at the time of the fall but does admit to falling on her back. Patient has a history of LBP and says the pain was unchanged since her fall. All other ROS as stated below. Patient has received the flu shot this year and receives the pnuemonia vaccine as scheduled. ROS: admits: dyspnea on exertion [10feet], cough, constipation [has BM once/day], b/l ankle swelling, unstable gait denies: fever, chills, headache, dizziness, chest pain, palpitations, dyspnea at rest, abdominal pain, nausea, vomiting, diarrhea PMHx: HTN, CAD with CABG, COPD (not on home O2), CAP, breast ca on chemotherapy (4 of 12), multi level degenerative disc, anxiety, GERD. PSurgHx: R hemicolectomy with primary umbilical hernia repair, R chest wall port placement, Hysterectomy, CABG, cataract surgery, RLE angioplasty FamHx: Mother of breast cancer, Father had HTN. SocHx: former tobacco (in her 20s), denies alcohol or illicit drug use; lives at home and walks with a walker Meds: pls see chart ALL: NKDA PMD: Paz Onc: Jacqueline Cardio: Blaise Pulm: Emre Pharmacy: [facility] Present on Admission - Present on Admission Any Indicators Present on Admission: No Review of Systems - Review of Systems All systems: reviewed and no additional remarkable complaints except Review of Systems: as per HPI Past Patient History - Infectious Disease Hx of Infectious Diseases: None - Past Social History Smoking Status: Former Smoker - CARDIAC Hx Pacemaker: No - PULMONARY Hx Chronic Obstructive Pulmonary Disease (COPD): Yes - NEUROLOGICAL Hx Neurological Disorder: No - HEENT Hx HEENT Problems: Yes (reading glasses) Hx Cataracts: Yes (cataract sx b/l lens implant age 52) - HEMATOLOGICAL/ONCOLOGICAL Hx Cancer: Yes (Right breast) Hx Chemotherapy: Yes - INTEGUMENTARY Hx Dermatological Problems: (ttoos) Other/Comment: b/l arms multiple eccymotic areas "I bruise easily. I'm on blood thinners" - MUSCULOSKELETAL/RHEUMATOLOGICAL Hx Falls: No - GASTROINTESTINAL Hx Gastroesophageal Reflux: Yes Other/Comment: pt denies colon polyps, pt had stomach polypectomy, hx gastroenteritis, recent colonoscopy 02/16/18 + large polyp - GENITOURINARY/GYNECOLOGICAL Hx Genitourinary Disorders: No - PSYCHIATRIC Hx Emotional Abuse: No Hx Physical Abuse: No - SURGICAL HISTORY Hx Cardiac Catheterization: Yes Hx Hysterectomy: Yes Other/Comment: 03/02/18 cystoscope with b/l ureteral stents, laparoscope r hemicolectomy, abd umbilical hernia repair by dr ahsan dubose, r breast lumpectomy 01/12/18 - ANESTHESIA Hx Anesthesia Reactions: No Hx Malignant Hyperthermia: No Meds Allergies/Adverse Reactions: Allergies Allergy/AdvReac Type Severity Reaction Status Date / Time No Known Allergies Allergy Verified 07/02/18 11:56 Physical Exam - Constitutional Appears: Non-toxic, No Acute Distress - Head Exam Head Exam: ATRAUMATIC, NORMAL INSPECTION, NORMOCEPHALIC - Eye Exam Eye Exam: EOMI, Normal appearance, PERRL. absent: Conjunctival injection, Scleral icterus - ENT Exam ENT Exam: Mucous Membranes Moist - Neck Exam Neck exam: Positive for: Full Rom, Normal Inspection. Negative for: Lymphadenopathy - Respiratory Exam Respiratory Exam: Wheezes (b/l scant wheezes in all chaidez), NORMAL BREATHING PATTERN. absent: Accessory Muscle Use, Rales, Rhonchi, Respiratory Distress Additional comments: R chest port noted- no erythema/signs of infection present - Cardiovascular Exam Cardiovascular Exam: Bradycardia, REGULAR RHYTHM, +S1, +S2. absent: Systolic Murmur - GI/Abdominal Exam GI & Abdominal Exam: Normal Bowel Sounds, Soft. absent: Distended, Firm, Guarding, Rigid, Tenderness Additional comments: healed surgical scar noted - Rectal Exam Rectal Exam: Deferred - Extremities Exam Extremities exam: Positive for: normal capillary refill, pedal edema (+1 b/l), pedal pulses present. Negative for: calf tenderness - Back Exam Back exam: NORMAL INSPECTION. absent: rash noted - Neurological Exam Neurological exam: Alert, CN II-XII Intact, Oriented x3 - Psychiatric Exam Psychiatric exam: Normal Affect, Normal Mood - Skin Skin Exam: Dry, Intact, Normal Color, Warm Results - Vital Signs Recent Vital Signs: Last Vital Signs Temp 98.3 F 07/03/18 05:51 Pulse 58 L 07/03/18 05:51 Resp 19 07/03/18 05:51 BP 161/68 H 07/03/18 05:51 Pulse Ox 97 07/03/18 05:51 - Labs Result Diagrams: 07/02/18 12:15 07/02/18 12:15 Labs: Laboratory Results - last 24 hr 07/02/18 07/02/18 07/02/18 12:15 12:15 12:15 WBC 5.0 RBC 2.98 L Hgb 9.1 L D Hct 28.4 L MCV 95.3 D MCH 30.5 MCHC 32.0 RDW 19.7 H Plt Count 287 MPV 9.0 Gran % 78.2 H Lymph % (Auto) 11.3 L Cannon % (Auto) 10.1 H Eos % (Auto) 0.2 L Baso % (Auto) 0.2 Gran # 3.93 Lymph # (Auto) 0.6 L Cannon # (Auto) 0.5 Eos # (Auto) 0.0 Baso # (Auto) 0.01 PT 12.5 INR 1.09 APTT 27.4 D-Dimer, Quantitative 697 H Sodium 137 Potassium 3.8 Chloride 107 Carbon Dioxide 25 Anion Gap 8 L BUN 10 Creatinine 0.8 Est GFR ( Amer) > 60 Est GFR (Non-Af Amer) > 60 Random Glucose 81 Calcium 8.5 Magnesium 2.0 Total Bilirubin 1.2 AST 20 ALT 34 Alkaline Phosphatase 72 Lactate Dehydrogenase 731 H Total Creatine Kinase 27 L Troponin I 0.02 D NT-Pro-B Natriuret Pep 2690 H Total Protein 5.4 L Albumin 2.8 L Globulin 2.6 Albumin/Globulin Ratio 1.1 Urine Color Urine Appearance Urine pH Ur Specific [place] Urine Protein Urine Glucose (UA) Urine Ketones Urine Blood Urine Nitrate Urine Bilirubin Urine Urobilinogen Ur Leukocyte Esterase Urine RBC Urine WBC Ur Epithelial Cells Urine Bacteria 07/02/18 19:55 WBC RBC Hgb Hct MCV MCH MCHC RDW Plt Count MPV Gran % Lymph % (Auto) Cannon % (Auto) Eos % (Auto) Baso % (Auto) Gran # Lymph # (Auto) Cannon # (Auto) Eos # (Auto) Baso # (Auto) PT INR APTT D-Dimer, Quantitative Sodium Potassium Chloride Carbon Dioxide Anion Gap BUN Creatinine Est GFR ( Amer) Est GFR (Non-Af Amer) Random Glucose Calcium Magnesium Total Bilirubin AST ALT Alkaline Phosphatase Lactate Dehydrogenase Total Creatine Kinase Troponin I NT-Pro-B Natriuret Pep Total Protein Albumin Globulin Albumin/Globulin Ratio Urine Color Light yellow Urine Appearance Clear Urine pH 6.0 Ur Specific [place] 1.020 Urine Protein Negative Urine Glucose (UA) Negative Urine Ketones Negative Urine Blood Large H Urine Nitrate Negative Urine Bilirubin Negative Urine Urobilinogen 0.2 Ur Leukocyte Esterase Negative Urine RBC 5 - 10 Urine WBC 2 - 5 Ur Epithelial Cells 6 - 8 Urine Bacteria Many Assessment & Plan - Assessment and Plan (Free Text) Assessment: 78yo female PMHx HTN, CAD with CABG, COPD (not on home O2), CAP, breast ca on chemotherapy (4 of 12), multi level degenerative disc, anxiety, and GERD presented with a 2-3 day history of a cold and cough. Patient admitted to TELE- Obs for further management
[2018-07-03] MEDS ORDERED: Albuterol-Ipratrop 3 mg / 0.5 (3 ml) UD IH PRN (07:33)
[2018-07-03 08:07] LABS: BASO # 0.01 K/mm3 (0.0-2.0); BASO % 0.2 % (0.0-3.0); GRAN # 4.37 (1.4-6.5); GRAN % 83.1 % (50.0-68.0); HEMOGLOBIN 8.9 g/dL (12.0-16.0); LYMPH # 0.5 (1.2-3.4); LYMPH % 9.3 % (22.0-35.0); MEAN CELL VOLUME 94.9 fl (80.0-105.0); MEAN CORPUSCULAR HEMOGLOBIN 30.5 pg (25.0-35.0); MEAN CORPUSCULAR HGB CONC 32.1 g/dl (31.0-37.0); MEAN PLATELET VOLUME 9.3 fl (7.0-11.0); MONO # 0.4 (0.1-0.6); MONO % 7.4 % (1.0-6.0); RBC 2.92 10^6/uL (3.5-6.1); RED CELL DISTRIBUTION WIDTH 19.5 % (11.5-14.5); WHITE BLOOD COUNT 5.3 10^3/uL (4.5-11.0)
[2018-07-03] MEDS: Budesonide 0.5 mg/2 ml Inhal Susp UD IH SCH ×2 (08:11→19:57)
[2018-07-03] MEDS ORDERED: Darbepoetin Alfa 100 mcg/ml Inj SC ONE (08:18)
[2018-07-03 08:30] LABS: ALB/GLOB RATIO 1.1 (1.1-1.8); ALBUMIN 2.8 g/dL (3.0-4.8); ALT/SGPT 31 U/L (7-56); AST/SGOT 22 U/L (14-36); BLOOD UREA NITROGEN 18 mg/dL (7-21); CALCIUM 8.7 mg/dL (8.4-10.5); GFR NON-AFRICAN AMERICAN > 60
--- NOTE | 2018-07-03 09:21 | US ---
HISTORY: Leg pain and swelling. Evaluate for DVT PHYSICIAN(S): Dallas Denise MD. TECHNIQUE: Duplex sonography and color-flow Doppler with graded compression were used to evaluate the deep venous systems of both lower extremities. The exam is somewhat limited by body habitus and edema FINDINGS: The visualized deep venous systems of both lower extremities are sonographically normal and compressible. Normal wave forms and augmentation are seen. There is no sonographic evidence for deep venous thrombosis in the visualized segments of both lower extremities. IMPRESSION: No sonographic evidence for deep venous thrombosis in the visualized segments of both lower extremities. Limited study
[2018-07-03] MEDS: MethylPREDNISolone 40 mg Vial IVP SCH ×2 (09:43→21:12)
[2018-07-03] MEDS: Fluticasone Nasal 50 mcg/Spray NS SCH (09:47)
--- NOTE | 2018-07-03 10:07 | RAD ---
Date of service: 07/02/2018 PROCEDURE: Bilateral Knee Radiographs. HISTORY: Fell at home COMPARISON: None. FINDINGS: BONES: Right Knee: There is bony sclerosis in the medial and lateral femoral condyle consistent with bone infarcts Left Knee: Bony sclerosis in the lateral femoral condyle consistent with bone infarct JOINTS: Right Knee: Normal. No osteoarthritis. Left knee: Normal. No osteoarthritis. SOFT TISSUES: Right Knee: Normal. Left Knee: Normal. JOINT EFFUSION: Right Knee: None. Left Knee: None. OTHER FINDINGS: None. IMPRESSION: Right Knee: There is bony sclerosis in the medial and lateral femoral condyle consistent with bone infarcts Left Knee: Bony sclerosis in the lateral femoral condyle consistent with bone infarct
--- NOTE | 2018-07-03 11:38 | CON ---
DATE: 07/03/2018 PULMONARY CONSULTATION REFERRING PHYSICIAN: Dr. Mullen. REASON FOR PULMONARY CONSULTATION: Chronic obstructive pulmonary disease. I did discuss the case with the night nurse at length. I have also reviewed the chart at length, and discussed the case with the patient at length. HISTORY OF PRESENT ILLNESS: The patient is a 78-year-old female, with past medical history significant for chronic obstructive pulmonary disease, recurrent bronchitis, pneumonia in the past, coronary artery disease, status post open heart surgery, breast cancer, who presents to [facility] with a 3-day history of increasing shortness of breath at rest, dyspnea on exertion and cough. The patient denies sputum production. The patient also denies chest pain, coughing up of blood, or chest pain - made worse with deep respirations. There is no history of temperatures, chills or infectious exposure. There is no history of night sweats, weight loss or appetite change prior to the above events. No history of leg or calf pains, although the patient does state to bilateral leg swelling over the past few days. No history of syncope or diaphoresis. No history of recent travel or trauma. REVIEW OF SYSTEMS: The patient does state to a runny, stuffy nose over the past few days. No history of nausea, vomiting or diarrhea. No acute urinary symptoms. No new neurologic or musculoskeletal complaints. Rest of review of systems negative. ALLERGIES: THERE ARE NO KNOWN ALLERGIES. SOCIAL HISTORY: Positive for tobacco and negative for alcohol. FAMILY HISTORY: No inheritable diseases. HOME MEDICATIONS: Include HydroDIURIL, Incruse Ellipta, Protonix, Singulair, Lopressor, Flovent, Lexapro, Lipitor, Ecotrin, Brovana, Cordarone, albuterol HFA. PHYSICAL EXAMINATION: GENERAL: The patient appears comfortable this morning. She is not short of breath at rest. VITALS: Temperature is 98.3, pulse 58, respirations 19, blood pressure 161/68. Oxygen saturation on nasal cannula is 97%. HEENT: Normocephalic, atraumatic. No JVD. CARDIOVASCULAR: Positive S1, S2. Questionable S3 gallop. LUNGS: Decreased breath sounds at the bases with crackles. Minimal bilateral rhonchi. A few wheezes are also appreciated. EXTREMITIES: Positive for edema. No cyanosis, no clubbing. Calves are nontender to palpation. GASTROINTESTINAL: Abdomen is soft, nontender and nondistended. Bowel sounds are positive. SKIN: No acute rash. NEUROLOGIC: Exam limited at the present time. PERTINENT LABORATORY DATA: Chest x-ray was done yesterday and reviewed. There is mild increase in pulmonary vascular congestion noted. CBC: White count 5.0K, hemoglobin 9.1, hematocrit 28.4, platelets of 287,000. Complete metabolic profile: LDH 731. B-type natriuretic peptide 2690. Total protein 5.4, albumin 2.8. Rest of the metabolic profile is within normal limits. IMPRESSION: 1. Acute bronchitis. 2. Chronic obstructive pulmonary disease. 3. Mild congestive heart failure. 4. Coronary artery disease. 5. Mild anemia. PLAN: Again, I did discuss the case with the night nurse at length. I have also reviewed the chart at length, discussed case with the patient at length. The patient presents to [facility] with a 3-day history of worsening pulmonary symptoms. Again, I did review the chest x-ray as above. The chest x-ray does show a mild increase in the interstitial changes - consistent with mild pulmonary vascular congestion. I have also reviewed the laboratory data. A significant rise in the B-type natriuretic peptide is noted. Cardiology evaluation with Dr. Welsh has been ordered. The patient was given Lasix in the emergency room. On physical exam, only mild bronchospasm is noted. However, there is no significant alveolar-arterial gradient. Oxygen saturation on nasal cannula is 97%. I will continue the current nebulizer treatments, and add inhaled steroids this morning. I will also add a small dose of intravenous steroids this morning. I should be able to transition to oral therapy in the next 24-48 hours. The patient does state she is feeling much better this morning, and is clinically improved. Additional pulmonary intervention will based on the clinical status of the patient. I did discuss the above with Dr. Mullen. Thank you very much for this pulmonary consultation. Anthony Hameed MD [facility]
--- NOTE | 2018-07-03 17:32 | CARD ---
APPROVED REPORT Date of service: 07/03/2018 EXAM: Two-dimensional and M-mode echocardiogram with Doppler and color Doppler. INDICATION Cardiac Disease: CAD Congestive Heart Failure 2D DIMENSIONS Left Atrium (2D)4.5 (1.6-4.0cm)IVSd1.0 (0.7-1.1cm) LVDd4.4 (3.9-5.9cm)PWd1.1 (0.7-1.1cm) LVDs3.0 (2.5-4.0cm)FS (%) 32.3 % LVEF (%)60.8 (>50%) M-Mode DIMENSIONS Aortic Root3.40 (2.2-3.7cm)Aortic Cusp Exc.1.40 (1.5-2.0cm) Aortic Valve AoV Peak Ryzlmhwc141.0cm/Nitesh Peak GR.9mmHg Mitral Valve E/A ratio0.0 TDI E/Lateral E'0.0E/Medial E'0.0 Tricuspid Valve TR Peak [id number]/sRAP [id number] Peak Gr.47mmHg [id number] LEFT VENTRICLE The left ventricle is normal size. There is normal left ventricular wall thickness. The left ventricular function is normal.EF-55-60% There is normal LV segmental wall motion. Transmitral Doppler flow pattern is Grade II-pseudonormal filling dynamics. No left ventricle thrombus noted on this study. There is no ventricular septal defect visualized. There is no left ventricular aneurysm. There is no mass noted in the left ventricle. RIGHT VENTRICLE The right ventricle is normal size. There is normal right ventricular wall thickness. The right ventricular systolic function is normal. ATRIA The left atrium is mildly dilated. The right atrium size is normal. The interatrial septum is intact with no evidence for an atrial septal defect. AORTIC VALVE The aortic valve is thickened but opens well. There is moderate aortic regurgitation. There is no aortic valvular stenosis. There is no aortic valvular vegetation. MITRAL VALVE The mitral valve is thickened but opens well. Mitral annular calcification is moderate to severe. Mitral regurgitation is mild to moderate. There is no mitral valve stenosis. There is no evidence of mitral valve prolapse. TRICUSPID VALVE The tricuspid valve leaflets are thickened , but open well. There is mild to moderate tricuspid regurgitation.RVSP-57 mmof hg. There is no tricuspid valve stenosis. There is no tricuspid valve prolapse or vegetation. PULMONIC VALVE The pulmonary valve is normal in structure. There is trace pulmonic valvular regurgitation. There is no pulmonic valvular stenosis. GREAT VESSELS The aortic root is normal in size. The ascending aorta is normal in size. The pulmonary artery is normal. The IVC is normal in size and collapses >50% with inspiration. PERICARDIAL EFFUSION There is no pleural effusion. There is no pericardial effusion. <Conclusion> The left ventricle is normal size. There is normal left ventricular wall thickness. The left ventricular function is normal.EF-55-60% There is moderate aortic regurgitation. Mitral regurgitation is mild to moderate. There is mild to moderate tricuspid regurgitation.RVSP-57 mmof hg. There is trace pulmonic valvular regurgitation. The IVC is normal in size and collapses >50% with inspiration. There is no pericardial effusion.
[2018-07-03] MEDS: cefTRIAXone 1 gm 1 GM/100 ML BAG IVPB SCH (17:39)
[2018-07-04] MEDS: Albuterol-Ipratrop 3 mg / 0.5 (3 ml) UD IH SCH ×4 (02:23→20:43)
--- NOTE | 2018-07-04 06:40 | CON ---
DATE: 07/03/2018 REASON FOR CONSULTATION: Cardiac evaluation, history of coronary artery disease with CABG, admitted with shortness of breath, possibly upper respiratory tract infection. HISTORY OF PRESENT ILLNESS: Briefly, this is a 78-year-old female with past medical history of breast cancer, status post lumpectomy, on chemotherapy since last week, history of colon surgery recently, history of coronary artery disease, CABG after the cardiac catheterization in 2012, where the cardiac exam revealed critical disease in LAD. the patient and with attempted LAD was unable because it was calcified and the patient was sent for open heart surgery. At that time, the ejection fraction was about 55% to 60%, EDP was in a range of 20, calcified coronaries, LAD 99%, diagonal ostial 90%, RCA 80% disease. The patient went for open heart surgery on 11/16/2012. PAST MEDICAL HISTORY: Hypertension and hyperlipidemia. SOCIAL HISTORY: Denies any history of alcohol abuse. PAST SURGICAL HISTORY: Significant for open heart surgery, 10/2012; history of open heart surgery bypass, history of lumpectomy of the left breast; history of colon surgery recently, no cancer a month or two months ago. Recent cardiac workup as follows: The patient had a stress test dated 11/07/2017, that revealed essentially normal myocardial perfusion study, fixed defect, most likely breast attenuation, normal gated wall motion when comparison made from 10/15/1999, with no significant change. Ejection fraction reported 63%. The patient had echocardiography also 03/23/2018, that revealed normal wall thickness, ejection fraction within normal limit, moderate aortic regurg, mild pulmonary hypertension. Calculated ejection fraction 63%, RV systolic pressure is 42. No mitral regurgitation noted. CURRENT MEDICATION: The patient is on hydrochlorothiazide, Protonix, Singulair, Lopressor, metoprolol tartarate 50 mg twice a day, Flovent, atorvastatin 200 mg daily, baby ASA 81 mg daily, amiodarone 200 mg daily. REVIEW OF SYSTEMS: As per HPI, history of proximal atrial fibrillation. PHYSICAL EXAMINATION: GENERAL: Height of the patient 5 feet 5 inches, weight of the patient is 159 pounds. Body mass index 25. 6 kg/m2. VITAL SIGNS: Rest of the vitals: Temperature, afebrile; heart rate 50; blood pressure 127/54. HEENT: PERRLA. Extraocular muscles intact. NECK: Supple. No carotid bruit or thyromegaly. CHEST: Clear to auscultation. HEART: S1 and S2, regular. ABDOMEN: Soft. EXTREMITIES: Clubbing, cyanosis negative. LABORATORY DATA: Blood workup as follows: WBC 5.3, hemoglobin 8.9, hematocrit 27.7, platelets count 297. Chemistry shows sodium 138, potassium 4, chloride 105, carbon dioxide 27, anion gap of 9, BUN 18, creatinine 0.8. Total protein 5.3, albumin 2.8. IMPRESSION: A 78-year-old female with past medical history significant for coronary artery disease, status post coronary artery bypass surgery in 10/2012, history of most recent stress test in 10/2017, essentially normal myocardial perfusion study with preserved left ventricular function, hypertension, hyperlipidemia, prediabetic, history of colon tumor; status post resection, history of breast carcinoma, status post lumpectomy and chemotherapy, admitted with shortness of breath, mildly elevated BNP, mild congestion. IMPRESSION: A 78-year-old female with past medical history significant for coronary artery disease, status post cardiac catheterization and open heart surgery in 2012, admitted with possible acute exacerbation of chronic obstructive pulmonary disease, mild congestion noted, history of breast cancer, status post lumpectomy, status post chemotherapy, history of colon surgery recently. RECOMMENDATION: We will get echo to assess LV function. Continue gentle diuretics.. Resume amiodarone for paroxysmal atrial fibrillation. Continue DVT prophylaxis. Continue beta blockers. We will follow with you. Thank you Dr. Mullen for providing us the opportunity in taking care of the patient, Yumiko Ramirez. Bibi Welsh MD
[2018-07-04 07:17] LABS: HEMOGLOBIN 10.4 g/dL (12.0-16.0); MEAN CELL VOLUME 94.2 fl (80.0-105.0); MEAN CORPUSCULAR HGB CONC 31.8 g/dl (31.0-37.0); MEAN PLATELET VOLUME 9.1 fl (7.0-11.0); RBC 3.47 10^6/uL (3.5-6.1); RED CELL DISTRIBUTION WIDTH 19.8 % (11.5-14.5); WHITE BLOOD COUNT 9.1 10^3/uL (4.5-11.0)
[2018-07-04] MEDS: Budesonide 0.5 mg/2 ml Inhal Susp UD IH SCH ×2 (07:39→20:43)
[2018-07-04 07:48] LABS: CALCIUM 9.8 mg/dL (8.4-10.5)
[2018-07-04 07:49] LABS: ALB/GLOB RATIO 1.2 (1.1-1.8); ALBUMIN 3.4 g/dL (3.0-4.8)
[2018-07-04] MEDS: Fluticasone Nasal 50 mcg/Spray NS SCH (10:00)
[2018-07-04] MEDS: Sildenafil 20 MG TAB PO SCH ×2 (10:15→17:38)
[2018-07-04] MEDS: MethylPREDNISolone 40 mg Vial IVP SCH ×2 (10:16→22:16)
--- NOTE | 2018-07-04 10:51 | PN ---
DATE: 07/04/2018 SUBJECTIVE: The patient appears comfortable this morning. She is not short of breath at rest. OBJECTIVE: VITAL SIGNS: (Last noted in the computer): Temperature is 97.9, pulse is 53, respirations 18, blood pressure 117/73. Oxygen saturation on nasal cannula is 96%. HEENT: Normocephalic, atraumatic. No JVD. CARDIOVASCULAR: Positive S1, S2. Questionable S3 gallop. LUNGS: Decreased breath sounds at the bases with minimal crackles. Very minimal/less rhonchi. No wheezing. EXTREMITIES: Less edema. No cyanosis, no clubbing. Calves are nontender to palpation. GI: Abdomen is soft, nontender. Limited at the present time. SKIN: No rashes. NEURO: limited exam. PERTINENT LABORATORY DATA: Echocardiogram was done yesterday and reviewed. The right ventricular systolic pressure is 57 mmHg. IMPRESSION: 1. Acute bronchitis. 2. Chronic obstructive pulmonary disease. 3. Mild congestive heart failure. 4. Coronary artery disease. 5. Moderate pulmonary hypertension. 6. Mild anemia. Plan: The patient appears comfortable this morning. She is not short of breath at rest. She is much less dyspneic on exertion. She does state that she is feeling much better overall. On physical exam, there is certainly less bronchospasm noted. In addition, there is no significant alveolar-arterial gradient. I will continue the current nebulizer treatments and decrease the intravenous steroids this morning. The echocardiogram results are noted above. The right ventricular systolic pressure is moderately elevated. I will start the patient on low-dose Revatio this morning. I will also discuss the echocardiogram with Cardiology. The patient will most likely need a right heart catheterization in the near future - in order for the optimal medications to be dispensed (by the insurance companies). Clinical status of the patient is significantly improved - compared to her initial presentation. However, given the above, her future status/prognosis does remain somewhat guarded. I will discuss the above with the attending physician. Anthony Hameed MD [facility]
[2018-07-04] MEDS: Cefpodoxime (Vantin) 200 mg Tab PO SCH (17:38)
[2018-07-05] MEDS: Albuterol-Ipratrop 3 mg / 0.5 (3 ml) UD IH SCH ×4 (01:40→21:08)
[2018-07-05] MEDS: Cefpodoxime (Vantin) 200 mg Tab PO SCH ×2 (05:26→17:04)
[2018-07-05 06:02] LABS: BLOOD UREA NITROGEN 28 mg/dL (7-21); CALCIUM 9.4 mg/dL (8.4-10.5); GFR NON-AFRICAN AMERICAN 54
[2018-07-05] MEDS: Budesonide 0.5 mg/2 ml Inhal Susp UD IH SCH ×2 (07:56→21:08)
--- NOTE | 2018-07-05 08:37 | PN ---
DATE: 07/04/2018 REASON FOR CONSULTATION AND FOLLOWUP: Cardiac evaluation, history of coronary artery disease, CABG, admitted with shortness of breath, possibly upper respiratory tract infection. Echo shows ucld-sq-urorxkjj tricuspid regurgitation, RV systolic pressure is 57; msgd-vn-wckhpvyb pulmonary hypertension. SUBJECTIVE: The patient denies any chest pain, shortness of breath or any palpitation. PHYSICAL EXAMINATION: GENERAL: Not in apparent distress. VITAL SIGNS: Temperature afebrile, heart rate , and blood pressure 120/65. HEENT: PERRLA. Extraocular muscles intact. NECK: Supple. No carotid bruit or thyromegaly. CHEST: Clear to auscultation. HEART: S1, S2 regular. ABDOMEN: Soft. EXTREMITIES: Clubbing, cyanosis negative. LABORATORY DATA: Blood workup as follows; WBC 9.8, hemoglobin 10.4, hematocrit 32.7, platelet count 340. Chemistries showed sodium 130, potassium 5.2, , anion gap 13, BUN 28, and creatinine 1.81, BNP elevated at 2690. IMPRESSION: A 78-year-old female with past medical history significant for coronary artery disease, status post cardiac catheterization 2012 followed by coronary artery bypass grafting because of calcified left ventricle 99% occluded, diagonal 90% occluded, right coronary artery was 80% occluded. The patient underwent surgery in 10/2012, recently diagnosed breast cancer, status post lumpectomy and chemo; status post colon surgery, admitted with shortness of breath and elevated BNP. The patient is on diuretics. The patient's last stress test on 11/07/2017 was essentially normal, negative for ischemia. Soft tissue attenuation in comparison with the last study 09/2015, no significant change noted. Prior right ventricle systolic pressure of 42 on 03/23/2018. Repeat echo was done that showed elevated right ventricular systolic pressure of 57. RECOMMENDATION: Continue amiodarone for history of paroxysmal atrial fibrillation. Continue aspirin, continue Lasix, continue atorvastatin, continue beta etta, continue sildenafil started for pulmonary hypertension and discussed with who suggested to have right heart catheterization. We will discuss this with the patient. We will schedule on . If the patient is going to try to schedule as outpatient, then we will schedule on . We will discuss with Dr. Phillips. We will follow with you. TSH 0.6, LDL 74, total cholesterol 144, triglyceride 101. Today's' BNP pending. No evidence of acute [place]. We will repeat BNP tomorrow and discuss with Dr. Phillips right heart catheterization for . Ordered as outpatient. Ycvu-cj-gpiksiva pulmonary hypertension; sildenafil was started. Thank you Dr. Phillips for providing us the opportunity in taking care of the patient, James Calderon. Bibi Welsh MD
--- NOTE | 2018-07-05 09:25 | PN ---
PULMONARY NOTE DATE: 07/05/2018 SUBJECTIVE: The patient appears very comfortable this morning. She is not short of breath at rest. PHYSICAL EXAMINATION: VITAL SIGNS: Temperature is 98.4, pulse 71, respirations 18, blood pressure 147/63 and oxygen saturation on room air is 95%. HEENT: Normocephalic and atraumatic. No JVD. CARDIOVASCULAR: Positive S1 and S2. Questionable S3 gallop. LUNGS: Improved breath sounds at the bases. Very minimal/less crackles-bases. No rhonchi. No wheezing. EXTREMITIES: Less edema. No cyanosis, no clubbing. Calves are nontender to palpation. GI: Abdomen is soft, nontender and nondistended. Bowel sounds are positive. SKIN: No acute rash. NEUROLOGIC: Exam limited at the present time. IMPRESSION: 1. Acute bronchitis. 2. Chronic obstructive pulmonary disease. 3. Mild congestive heart failure. 4. Coronary artery disease. 5. Moderate pulmonary hypertension. 6. Mild anemia. PLAN: The patient appears very comfortable this morning. She is not short of breath at rest. She does state to feeling much, much better overall. I did discuss the case with the night nurse at length. The night nurse stated the patient had a very good night. On physical exam, her bronchospasm has primarily resolved. In addition, the oxygen saturation on room air is now 95%. I will continue the current nebulizer treatments and change to oral steroids this morning. The patient also remains on Revatio - for her pulmonary hypertension. Again, she is well aware that she will need to follow up in the office - for revision of her pulmonary hypertensive meds. I did discuss the case with Cardiology (Dr. Welsh) yesterday. The patient will need a right heart catheterization in the near future. Dr. Welsh agrees. Clinical status of the patient is significantly improved - compared to her initial presentation. However, given the above, her overall status/prognosis does remain guarded. I will discuss the above the attending physician. Anthony Hameed MD [facility]
[2018-07-05] MEDS: Fluticasone Nasal 50 mcg/Spray NS SCH (10:42)
[2018-07-05] MEDS: Sildenafil 20 MG TAB PO SCH ×2 (10:42→17:04)
--- NOTE | 2018-07-05 13:43 | CT ---
Date of service: 07/05/2018 PROCEDURE: CT Chest without contrast HISTORY: breast cancer, SOB COMPARISON: None available. TECHNIQUE: Contiguous axial images were obtained through the chest without intravenous contrast enhancement. Sagittal and coronal reconstructions were performed. Radiation dose: Total exam DLP = 370.06 mGy-cm. This CT exam was performed using one or more of the following dose reduction techniques: Automated exposure control, adjustment of the mA and/or kV according to patient size, and/or use of iterative reconstruction technique. FINDINGS: LUNGS: Emphysematous changes are seen in both upper lobes. There are no pulmonary nodules. No evidence of consolidation. MEDIASTINUM: The aorta is mildly dilated and calcified. Normal sized heart. Main pulmonary artery unremarkable. No vascular congestion. No lymphadenopathy. PLEURA: No pleural fluid. No pneumothorax. BONES: No fracture. No destructive lesion. UPPER ABDOMEN: There is a moderate size hiatal hernia. Gallstones are seen OTHER FINDINGS: None. IMPRESSION: COPD with emphysematous changes in the upper lobes. No evidence of metastatic disease
--- NOTE | 2018-07-05 14:39 | PN ---
DATE: 07/05/2018 REASON FOR CONSULTATION: Follow up cardiac evaluation, history of coronary artery disease, CABG, admitted with shortness of breath, possibly upper respiratory tract infection. Echo shows stew-ez-ypitqvgc tricuspid regurgitation, RV systolic pressure is 57; qeti-px-nkatxvyq pulmonary hypertension. SUBJECTIVE: The patient denies any chest pain, shortness of breath. She will be going for a CAT scan of the chest. PHYSICAL EXAMINATION: VITAL SIGNS: Temperature afebrile, heart rate 71, and blood pressure 147/60. HEENT: PERRLA. Extraocular muscles intact. NECK: Supple. No carotid bruit or thyromegaly. CHEST: Clear to auscultation. HEART: S1, S2 regular. ABDOMEN: Soft. EXTREMITIES: Clubbing and cyanosis negative. LABORATORY DATA: Blood workup as follows; WBC 9.8, hemoglobin 10.4, hematocrit 32.7, platelet count 340. Chemistries showed sodium 135, potassium 4.6, chloride 90, carbon dioxide 27, anion gap 14, BUN 28, and creatinine 1.0. IMPRESSION AND PLAN: This is a 78-year-old female with past medical history significant for coronary artery disease, status post cardiac catheterization 2012; recently diagnosed breast cancer, status post lumpectomy, status post chemo; history of colon surgery; admitted with shortness of breath and elevated BNP. The patient is on diuretic. Repeat echo was done. It shows elevated pulmonary pressure. The patient's recent stress test dated 11/07/2017 shows essentially normal. Myocardial perfusion study indicative of ischemia. The patient had echocardiography done yesterday that revealed preserved left ventricular function, ejection fraction 55 to 60%, moderate aortic regurgitation, mild to moderate mitral regurgitation, mild to moderate tricuspid regurgitation. Right ventricular systolic pressure 57. I discussed with ____ who suggested to do the right heart catheterization for treatment started for pulmonary hypertension, though the patient started diuretics as well as sildenafil and Revatio 20 p.o. b.i.d. The patient is scheduled for cardiac catheterization, right heart, tomorrow. She is going for CT contrast of the chest, history of breast carcinoma and shortness of breath. We discussed with the patient and we will inform the patient's daughter. I will keep nothing by mouth after 12 midnight for right heart catheterization. In the interim, continue amiodarone for paroxysmal atrial fibrillation, continue metoprolol 50 mg b.i.d., continue Revatio, and continue baby aspirin. Thank you Dr. Phillips for providing us the opportunity in taking care of the patient, Yumiko Ramirez. Bibi Welsh MD
[2018-07-06] MEDS: Albuterol-Ipratrop 3 mg / 0.5 (3 ml) UD IH SCH ×4 (01:57→20:20)
[2018-07-06] MEDS: Cefpodoxime (Vantin) 200 mg Tab PO SCH ×2 (05:47→17:43)
[2018-07-06] MEDS: Budesonide 0.5 mg/2 ml Inhal Susp UD IH SCH ×2 (07:52→20:20)
[2018-07-06] MEDS ORDERED: Lidocaine 2% Inj (20ml) ONE (08:23)
[2018-07-06] MEDS ORDERED: Midazolam 2 MG/2 ML VIAL ONE (08:40)
--- NOTE | 2018-07-06 09:11 | PN ---
DATE: 07/06/2018 SUBJECTIVE: The patient appears very comfortable this morning. She is not short of breath at rest. PHYSICAL EXAMINATION: VITAL SIGNS: Temperature 98.0, pulse 59, respirations 18, blood pressure 113/60. Oxygen saturation on room air is 95%. HEENT: Normocephalic, atraumatic. NECK: No JVD. CARDIOVASCULAR: Positive S1, S2. Questionable S3 gallop. LUNGS: Clear bilaterally this morning. EXTREMITIES: Less edema. No cyanosis. No clubbing. Calves are nontender to palpation. GI: Abdomen is soft, nontender and nondistended. Bowel sounds are positive. SKIN: No acute rash. NEUROLOGIC: Exam limited at the present time. IMPRESSION: 1. Acute bronchitis. 2. Chronic obstructive pulmonary disease. 3. Mild congestive heart failure. 4. Coronary artery disease. 5. Moderate pulmonary hypertension. 6. Mild anemia. PLAN: The patient appears very comfortable this morning. She is not short of breath at rest. She does state to feeling much better overall. I did discuss the case with the night nurse at length. The night nurse stated that the patient had a very good night. On physical exam, her lungs remain clear. In addition, the oxygen saturation on room air remains at 95%. I will continue with the current nebulizer treatments and oral steroids (changed yesterday) for now. The patient did have a CAT scan of the chest done yesterday. Chronic obstructive pulmonary disease with emphysematous changes in the upper lobes was identified. There is no evidence of pulmonary mass, nodule or consolidation. There is no lymphadenopathy. Input by Cardiology (Dr. Welsh) is also noted. The patient is scheduled for a right heart catheterization later this morning. She will remain on Revatio for the time being. Clinical status of the patient is significantly improved - compared to her initial presentation. However, given the above, her future status/prognosis does remain guarded. I will discuss the above with the attending physician. Anthony Hameed MD [facility]
[2018-07-06] MEDS ORDERED: Sodium Chloride 0.9% 1,000 ML IV SCH (09:15)
--- NOTE | 2018-07-06 11:10 | CPOSTOP ---
CARDIOVASCULAR LAB POSTPROCEDURE NOTE DATE: 07/06/2018 PHYSICIAN: Bibi Welsh MD. MOLDER WAX BALL: NORMAN Sherman. TYPE OF ANESTHESIA: Moderate conscious sedation. Total 1 mg of Versed and 50 of fentanyl given. PRE-PROCEDURE DIAGNOSIS: Pulmonary hypertension. PROCEDURE PERFORMED: Right heart catheterization. FINDINGS: Normal right heart pressure. FINAL DIAGNOSIS: Normal right heart pressure. POST PROCEDURE CONDITION: The patient's condition is stable. VASCULAR ACCESS SITE: Right femoral vein. CLOSURE DEVICE: Mynx. TOTAL RADIATION DOSE: 323.47 milligray unit. TOTAL FLUORO TIME: 0.7 minutes. Bibi Welsh MD [facility]TDD
[2018-07-06] MEDS: Fluticasone Nasal 50 mcg/Spray NS SCH (13:25)
[2018-07-06] MEDS: Sildenafil 20 MG TAB PO SCH ×2 (13:25→17:43)
--- NOTE | 2018-07-06 15:01 | PN ---
DATE: 07/06/2018 REASON FOR CONSULTATION AND FOLLOWUP: Cardiac evaluation, history of coronary artery disease, CABG, admitted with shortness of breath, possibly upper respiratory tract infection. SUBJECTIVE: Echo shows [id number]-[id number] tricuspid regurgitation, RV systolic pressure of 57, mild pulmonary hypertension. The patient went for the right heart catheterization that revealed upper limit normal right heart catheterization, except elevated PVR, details in the laboratory miller report. The patient had a recent stress test on 11/07/2017 essentially normal. Myocardial perfusion study indicative of no ischemia. Had echocardiography which did reveal preserved LV function. RECOMMENDATIONS: Continue amiodarone for paroxysmal atrial fibrillation, continue albuterol, continue aspirin, continue hydrochlorothiazide, continue metoprolol and atorvastatin. I will follow with you. Thank you Dr. Mullen for providing us the opportunity in taking care of the patient, Yumiko Ramirez. Bibi Welsh MD
[2018-07-06 16:04] LABS: BASO # 0.01 K/mm3 (0.0-2.0); BASO % 0.1 % (0.0-3.0); GRAN # 5.07 (1.4-6.5); GRAN % 70.2 % (50.0-68.0); HEMOGLOBIN 11.1 g/dL (12.0-16.0); LYMPH # 1.7 (1.2-3.4); LYMPH % 22.9 % (22.0-35.0); MEAN CELL VOLUME 96.1 fl (80.0-105.0); MEAN CORPUSCULAR HEMOGLOBIN 30.6 pg (25.0-35.0); MEAN CORPUSCULAR HGB CONC 31.8 g/dl (31.0-37.0); MEAN PLATELET VOLUME 9.3 fl (7.0-11.0); MONO # 0.5 (0.1-0.6); MONO % 6.8 % (1.0-6.0); RBC 3.63 10^6/uL (3.5-6.1); RED CELL DISTRIBUTION WIDTH 20.1 % (11.5-14.5); WHITE BLOOD COUNT 7.2 10^3/uL (4.5-11.0)
[2018-07-06 16:20] LABS: CALCIUM 9.1 mg/dL (8.4-10.5)
--- NOTE | 2018-07-06 20:30 | CARDCATH ---
PROCEDURE DATE: 07/06/2018 PROCEDURE PERFORMED: Right heart catheterization. PERFORMING PHYSICIAN: Bibi Welsh MD SUPERVISOR BLUEPRINTING [employer]OTOCOPY: Ignacia Pennington, electrocardiograph technician. SCHEDULING: Elective. BRIEF CLINICAL HISTORY: This is a 78-year-old female with past medical history significant for coronary artery disease, status post cardiac catheterization, then the patient had CABG because of three vessels disease in 2012, who recently admitted with shortness of breath, elevated BNP, noninvasive workup in the past that is 11/07/2012 essentially normal perfusion scan that was a stress test negative for ischemia. Recent echocardiography done that shows elevated RV systolic pressure consistent with rpnq-un-gsqtumay pulmonary hypertension, who suggested right heart cath by home economics expert Dr. Hameed and Dr. Mendosa, so the patient was scheduled for right heart catheterization. INDICATION FOR PROCEDURE: Assess the severity of pulmonary hypertension to guide medication. CASE TECHNIQUE: The patient was brought to the laborer salvage in fasting state and was prepped and draped in sterile manner. Right femoral groin infiltrated with 2% lidocaine with subcutaneous anesthesia with micropuncture Seldinger technique. Right femoral vein was accessed and then upsize to 7-[place] venous sheath and then [place] catheter was floated, right atrium, right ventricle, pulmonary artery as well as wedge position and the pressure recording and then cardiac output was then calculated with thermodilution and after that the [place] was disconnected, pulled out and the puncture site was closed with Mynx closing device. The patient tolerated the procedure well and returned to the floor in stable condition. FINDINGS: Right heart catheterization as follows: RA 3 to 4 mmHg, RV 27/4; PA 25/10, mean PA 15 mmHg; pulmonary capillary wedge pressure 5-6 mmHg; cardiac output 2.5 L per minute, cardiac index 1.42 L, and pulmonary vascular resistance 6 Fortune unit. IMPRESSION: Primary Pulmonary hypertension with a normal wedge. RECOMMENDATIONS: Pulmonary evaluation. We will discuss with Dr. Hameed and Dr. Mendosa. Bibi Welsh MD cc: Dr. Mullen, Lizbet Phillips MD, Davide Mendosa MD [facility] # [id number]
--- NOTE | 2018-07-07 00:22 | CP.PCM.HP ---
History of Present Illness - History of Present Illness History of Present Illness: Amitted with increase shortness of breath. She was recently diagnosed with breast Cancer. Oncotype showed high recurrence score. She is on weekly taxotere. Tolerating well. She has baseline COPD. Hb/Hct stable. No fever cough. CXR no infiltrate. Present on Admission - Present on Admission Any Indicators Present on Admission: No Review of Systems - Constitutional Constitutional: As Per HPI - EENT Eyes: absent: As Per HPI, Blind Spots, Blurred Vision, Change in Vision, Decreased Night Vision, Diplopia, Discharge, Dry Eye, Exophthalmos, Floaters, Irritation, Itchy Eyes, Loss of Peripheral Vision, Pain, Photophobia, Requires Corrective Lenses, Sees Flashes, Spots in Vision, Tunnel Vision, Other Visual Disturbances, Loss of Vision, Other Ears: absent: As Per HPI, Decreased Hearing, Ear Discharge, Ear Pain, Tinnitus, Abnormal Hearing, Disequilibrium, Dizziness, Other Nose/Mouth/Throat: absent: As Per HPI, Epistaxis, Nasal Congestion, Nasal Discharge, Nasal Obstruction, Nasal Trauma, Nose Pain, Post Nasal Drip, Sinus Pain, Sinus Pressure, Bleeding Gums, Change in Voice, Dental Pain, Dry Mouth, Dysphagia, Halitosis, Hoarsness, Lip Swelling, Mouth Lesions, Mouth Pain, Odynophagia, Sore Throat, Throat Swelling, Tongue Swelling, Facial Pain, Neck Pain, Neck Mass, Other - Breasts Breasts: As Per HPI - Cardiovascular Cardiovascular: As Per HPI - Respiratory Respiratory: As Per HPI - Gastrointestinal Gastrointestinal: absent: As Per HPI, Abdominal Pain, Belching, Bloating, Change in Bowel Habits, Change in Stool Character, Coffee Ground Emesis, Constipation, Cramping, Diarrhea, Dyspepsia, Dysphagia, Early Satiety, Excessive Flatus, Fecal Incontinence, Heartburn, Hematemesis, Hematochezia, Loose Stools, Melena, Nausea, Odynophagia, Temesmus, Vomiting, Other - Genitourinary Genitourinary: absent: As Per HPI, Change in Urinary Stream, Difficulty Urinating, Dysuria, Flank Pain, Hematuria, Pyuria, Nocturia, Urinary Incontinence, Urinary Frequency, Urinary Hesitance, Urinary Urgency, Voiding Freq/Small Amts, Freq UTI, Hx Renal/Bladder Calculi, Hx /Renal Surgery, Bladder Distension, Other - Reproductive: Female Reproductive:Female: absent: As Per HPI, Amenorrhea, Amenorrhea/ Control, Currently Menstual, Cycle <21 Days, Cycle >35 Days, Cycle Variable, Menses 1-7 Days, Menses >/= 8 Days, Menses Variable, Cycle > 4 Weeks Between, No Menses for 6 Months, Heavy Menses, Light Menses, Normal Menses, Spotting Between Cycles, S/P Hysterectomy, Menopausal, Post Menopausal, Premenarche, Abnormal Vaginal Bleeding, Dysmenorrhea, Dyspareunia, Genital Lesions, Genital Pruritis, Pelvic Pain, Prolapse Symptoms, Sexual Dysfunction, Vaginal Discharge, Vaginal Dryness, Vaginal Odor, Vaginal Pruritis, Other - Musculoskeletal Musculoskeletal: absent: As Per HPI, Abnormal Gait, Arthralgias, Atrophy, Back Pain, Deformity, Joint Swelling, Limited Range of Motion, Loss of Height, Muscle Cramps, Muscle Weakness, Myalgias, Neck Pain, Numbness, Radiating Pain into Limb, Stiffness, Tingling, Other - Neurological Neurological: absent: As Per HPI, Abnormal Gait, Abnormal Hearing, Abnormal Movements, Abnormal Speech, Behavioral Changes, Burning Sensations, Confusion, Convulsions, Disequilibrium, Dizziness, Numbness, Focal Weakness, Frequent Falls, Headaches, Lack of Coordination, Loss of Vision, Memory Loss, Paresthesias, Radicular Pain, Restless Legs, Sensory Deficit, Syncope, Tingling, Tremor, Vertigo, Weakness, Other Visual Disturbances, Other - Endocrine Endocrine: absent: As Per HPI, Change in Body Appearance, Change in Libido, Cold Intolorance, Deepening of Voice, Excessive Sweating, Fatigue, Flushing, Heat Intolorance, Increase in Ring/Shoe/Hat Size, Palpitations, Polydipsia, Polyphagia, Polyuria, Other - Hematologic/Lymphatic Hematologic: As Per HPI Past Patient History - Infectious Disease Hx of Infectious Diseases: None - Past Social History Smoking Status: Former Smoker - CARDIAC Hx Pacemaker: No - PULMONARY Hx Chronic Obstructive Pulmonary Disease (COPD): Yes - NEUROLOGICAL Hx Neurological Disorder: No - HEENT Hx HEENT Problems: Yes (reading glasses) Hx Cataracts: Yes (cataract sx b/l lens implant age 52) - HEMATOLOGICAL/ONCOLOGICAL Hx Blood Transfusions: No Hx Blood Transfusion Reaction: No - INTEGUMENTARY Hx Dermatological Problems: (ttoos) Other/Comment: b/l arms multiple eccymotic areas "I bruise easily. I'm on blood thinners" - MUSCULOSKELETAL/RHEUMATOLOGICAL Hx Falls: No - GASTROINTESTINAL Hx Gastroesophageal Reflux: Yes Other/Comment: pt denies colon polyps, pt had stomach polypectomy, hx gastroenteritis, recent colonoscopy 02/16/18 + large polyp - GENITOURINARY/GYNECOLOGICAL Hx Genitourinary Disorders: No - PSYCHIATRIC Hx Emotional Abuse: No Hx Physical Abuse: No - SURGICAL HISTORY Hx Surgeries: No - ANESTHESIA Hx Anesthesia Reactions: No Meds Allergies/Adverse Reactions: Allergies Allergy/AdvReac Type Severity Reaction Status Date / Time No Known Allergies Allergy Verified 07/02/18 11:56 Physical Exam - Constitutional Appears: Well, Non-toxic - Head Exam Head Exam: ATRAUMATIC, NORMAL INSPECTION, NORMOCEPHALIC - Eye Exam Eye Exam: Normal appearance - ENT Exam ENT Exam: Mucous Membranes Moist, Normal Exam - Neck Exam Neck exam: Positive for: Normal Inspection - Respiratory Exam Respiratory Exam: Wheezes, NORMAL BREATHING PATTERN - Cardiovascular Exam Cardiovascular Exam: REGULAR RHYTHM, +S1, +S2 - GI/Abdominal Exam GI & Abdominal Exam: Normal Bowel Sounds, Soft - Back Exam Back exam: NORMAL INSPECTION - Skin Skin Exam: Normal Color, Pallor, Warm Results - Vital Signs Recent Vital Signs: Last Vital Signs Temp 98.7 F 07/06/18 18:09 Pulse 62 07/06/18 18:09 Resp 18 07/06/18 18:09 BP 109/56 L 07/06/18 18:09 Pulse Ox 95 07/06/18 00:01 - Labs Result Diagrams: 07/06/18 15:43 07/06/18 15:43 Labs: Laboratory Results - last 24 hr 07/06/18 07/06/18 15:43 15:43 WBC 7.2 D RBC 3.63 Hgb 11.1 L Hct 34.9 L MCV 96.1 MCH 30.6 MCHC 31.8 RDW 20.1 H Plt Count 346 MPV 9.3 Gran % 70.2 H Lymph % (Auto) 22.9 [place] % (Auto) 6.8 H Eos % (Auto) 0.0 L Baso % (Auto) 0.1 Gran # 5.07 Lymph # (Auto) 1.7 [place] # (Auto) 0.5 Eos # (Auto) 0.0 Baso # (Auto) 0.01 Sodium 136 Potassium 4.1 Chloride 102 Carbon Dioxide 30 Anion Gap 9 L BUN 30 H Creatinine 1.1 Est GFR ( Amer) 58 Est GFR (Non-Af Amer) 48 Random Glucose 94 Calcium 9.1 Assessment & Plan - Assessment and Plan (Free Text) Assessment: 1. Dyspnea 2. COPD exacerbation 3. Breast cancer Plan : admit hospital. tele monitoring. Cardiac enzymes negative. CXR- no infiltrate. Cardiology consult Dr. Welsh requested. Pulmonary consult Dr. Hameed requested. Breast cancer - in remission. On weekly taxotere chemo. Renal -normal BUN,creatinine. Lytes normal. Echo ordered. - Date & Time Date: 07/02/18 Time: 15:00
--- NOTE | 2018-07-07 00:28 | CP.PCM.PN ---
Subjective - Date & Time of Evaluation Date of Evaluation: 07/07/18 Time of Evaluation: 18:00 - Subjective Subjective: Shortness of breath decreased. ambulating in room. No cough, fever. Cardiac cath done today showed normal coronaries. Preserved cardiac functions. No fever. CT chest did not show mass lesion. Objective - Vital Signs/Intake and Output Vital Signs (last 24 hours): Temp Pulse Resp BP Pulse Ox 98.7 F 62 18 109/56 L 95 07/06/18 18:09 07/06/18 18:09 07/06/18 18:09 07/06/18 18:09 07/06/18 00:01 Intake and Output: 07/06/18 07/07/18 18:59 06:59 Intake Total 900 Balance 900 - Medications Medications: Current Medications Albuterol/Ipratropium (Duoneb 3 Mg/0.5 Mg (3 Ml) Ud) 3 ml IH [id number] [facility] Last Admin: 07/06/18 20:20 Dose: 3 ml Albuterol/Ipratropium (Duoneb 3 Mg/0.5 Mg (3 Ml) Ud) 3 ml IH Q2H PRN PRN Reason: Wheezing Amiodarone HCl (Cordarone) 200 mg PO DAILY [facility] Last Admin: 07/06/18 12:10 Dose: Not Given Aspirin (Ecotrin) 81 mg PO DAILY [facility] Last Admin: 07/06/18 05:47 Dose: 81 mg Atorvastatin Calcium (Lipitor) 20 mg PO DAILY [facility] Last Admin: 07/06/18 12:56 Dose: 20 mg Budesonide (Pulmicort Respules) 0.5 mg IH [id number] [facility] Last Admin: 07/06/18 20:20 Dose: 0.5 mg Fluticasone Propionate (Flonase) 1 actuation NS DAILY [facility] Last Admin: 07/06/18 13:25 Dose: 1 spr Hydrochlorothiazide (Hydrodiuril) 25 mg PO DAILY [facility] Last Admin: 07/06/18 13:24 Dose: Not Given Metoprolol Tartrate (Lopressor) 50 mg PO BID [facility] Last Admin: 07/06/18 17:43 Dose: 50 mg Montelukast Sodium (Singulair) 10 mg PO HS [facility] Last Admin: 07/06/18 23:31 Dose: 10 mg Prednisone (Prednisone Tab) 30 mg PO DAILY [facility] Last Admin: 07/06/18 12:56 Dose: 30 mg Sildenafil Citrate (Revatio) 20 mg PO BID [facility] Last Admin: 07/06/18 17:43 Dose: 20 mg - Labs Labs: 07/06/18 15:43 07/06/18 15:43 PT 12.5 SECONDS (9.4-12.5) 07/02/18 12:15 INR 1.09 07/02/18 12:15 APTT 27.4 Seconds (25.1-36.5) 07/02/18 12:15 - Constitutional Appears: Well, Non-toxic - Head Exam Head Exam: ATRAUMATIC, NORMAL INSPECTION, NORMOCEPHALIC - Eye Exam Eye Exam: Normal appearance - ENT Exam ENT Exam: Mucous Membranes Moist, Normal Exam - Neck Exam Neck Exam: Normal Inspection - Respiratory Exam Respiratory Exam: Clear to Ausculation Bilateral, NORMAL BREATHING PATTERN - Cardiovascular Exam Cardiovascular Exam: REGULAR RHYTHM, +S1, +S2 - GI/Abdominal Exam GI & Abdominal Exam: Soft, Normal Bowel Sounds - Extremities Exam Extremities Exam: Normal Inspection - Back Exam Back Exam: NORMAL INSPECTION - Neurological Exam Neurological Exam: Alert, Awake, Normal Gait, Oriented x3 - Psychiatric Exam Psychiatric exam: Normal Affect, Normal Mood - Skin Skin Exam: Normal Color, Warm Assessment and Plan - Assessment and Plan (Free Text) Assessment: 1. Breast cancer - in remission. 2. COPD : stable now. on prednisone 30 mg PO. daily. Continue broncho dilators. 3. Pulmonary hypertension. : on sildanefil . Dr. Hameed following. 4. renal : stable. 5. discharge am.
--- NOTE | 2018-07-07 00:35 | CP.PCM.DIS ---
Provider - Provider Date of Admission: 07/02/18 19:58 Attending physician: Lizbet Phillips MD Consults: 07/02/18 13:16 Consult [Physician Consult] Stat Comment: routine Consulting Provider: Bibi Welsh Consulting Physician: Bibi Welsh Reason for Consult: dyspnea Consult [Physician Consult] Stat Comment: routine Consulting Provider: Anthony Hameed Consulting Physician: Anthony Hameed Reason for Consult: COPD 07/02/18 13:17 Consult [Physician Consult] Stat Comment: routine Consulting Provider: Lizbet Phillips Consulting Physician: Lizbet Phillips Reason for Consult: breast cancer Time Spent in preparation of Discharge (in minutes): 60 Hospital Course - Lab Results Lab Results: Micro Results 07/02/18 19:55 Urine Urine Culture - Final 50-100,000 CFU/ML. MULTIPLE SPECIES. SUGGEST REPEAT SPECIMEN. Most Recent Lab Values WBC 7.2 10^3/uL (4.5-11.0) D 07/06/18 15:43 RBC 3.63 10^6/uL (3.5-6.1) 07/06/18 15:43 Hgb 11.1 g/dL (12.0-16.0) L 07/06/18 15:43 Hct 34.9 % (36.0-48.0) L 07/06/18 15:43 MCV 96.1 fl (80.0-105.0) 07/06/18 15:43 MCH 30.6 pg (25.0-35.0) 07/06/18 15:43 MCHC 31.8 g/dl (31.0-37.0) 07/06/18 15:43 RDW 20.1 % (11.5-14.5) H 07/06/18 15:43 Plt Count 346 10^3/uL (120.0-450.0) 07/06/18 15:43 MPV 9.3 fl (7.0-11.0) 07/06/18 15:43 Gran % 70.2 % (50.0-68.0) H 07/06/18 15:43 Lymph % (Auto) 22.9 % (22.0-35.0) 07/06/18 15:43 [place] % (Auto) 6.8 % (1.0-6.0) H 07/06/18 15:43 Eos % (Auto) 0.0 % (1.5-5.0) L 07/06/18 15:43 Baso % (Auto) 0.1 % (0.0-3.0) 07/06/18 15:43 Gran # 5.07 (1.4-6.5) 07/06/18 15:43 Lymph # (Auto) 1.7 (1.2-3.4) 07/06/18 15:43 [place] # (Auto) 0.5 (0.1-0.6) 07/06/18 15:43 Eos # (Auto) 0.0 (0.0-0.7) 07/06/18 15:43 Baso # (Auto) 0.01 K/mm3 (0.0-2.0) 07/06/18 15:43 PT 12.5 SECONDS (9.4-12.5) 07/02/18 12:15 INR 1.09 07/02/18 12:15 APTT 27.4 Seconds (25.1-36.5) 07/02/18 12:15 D-Dimer, Quantitative 697 ng/mlDDU (0-243) H 07/02/18 12:15 Sodium 136 mmol/L (132-148) 07/06/18 15:43 Potassium 4.1 mmol/L (3.6-5.0) 07/06/18 15:43 Chloride 102 mmol/L (98-107) 07/06/18 15:43 Carbon Dioxide 30 mmol/L (21-33) 07/06/18 15:43 Anion Gap 9 (10-20) L 07/06/18 15:43 BUN 30 mg/dL (7-21) H 07/06/18 15:43 Creatinine 1.1 mg/dl (0.7-1.2) 07/06/18 15:43 Est GFR ( Amer) 58 07/06/18 15:43 Est GFR (Non-Af Amer) 48 07/06/18 15:43 POC Glucose (mg/dL) 140 mg/dL (65-110) H 07/05/18 21:37 Random Glucose 94 mg/dL (70-110) 07/06/18 15:43 Hemoglobin A1c 5.9 % (4.2-6.5) 07/04/18 06:45 Calcium 9.1 mg/dL (8.4-10.5) 07/06/18 15:43 Phosphorus 3.6 mg/dL (2.5-4.5) 07/04/18 06:45 Magnesium 2.3 mg/dL (1.7-2.2) H 07/04/18 06:45 Total Bilirubin 0.7 mg/dL (0.2-1.3) 07/04/18 06:45 AST 32 U/L (14-36) 07/04/18 06:45 ALT 35 U/L (7-56) 07/04/18 06:45 Alkaline Phosphatase 76 U/L (38-126) 07/04/18 06:45 Lactate Dehydrogenase 731 U/L (333-699) H 07/02/18 12:15 Total Creatine Kinase 27 U/L (35-230) L 07/02/18 12:15 Troponin I 0.02 ng/mL D 07/02/18 12:15 NT-Pro-B Natriuret Pep 1510 pg/mL (0-450) H 07/04/18 06:45 Total Protein 6.3 g/dL (5.8-8.3) 07/04/18 06:45 Albumin 3.4 g/dL (3.0-4.8) 07/04/18 06:45 Globulin 2.9 gm/dL 07/04/18 06:45 Albumin/Globulin Ratio 1.2 (1.1-1.8) 07/04/18 06:45 Triglycerides 101 mg/dL (35-160) 07/04/18 06:45 Cholesterol 144 mg/dL (130-200) 07/04/18 06:45 LDL Cholesterol Direct 74 mg/dL (0-129) 07/04/18 06:45 HDL Cholesterol 54 mg/dL (29-60) 07/04/18 06:45 TSH 3rd Generation 0.60 mIU/mL (0.46-4.68) 07/04/18 06:45 Urine Color Light yellow (YELLOW) 07/02/18 19:55 Urine Appearance Clear (CLEAR) 07/02/18 19:55 Urine pH 6.0 (4.7-8.0) 07/02/18 19:55 Ur Specific [place] 1.020 (1.005-1.035) 07/02/18 19:55 Urine Protein Negative mg/dL (<30 mg/dL) 07/02/18 19:55 Urine Glucose (UA) Negative mg/dL (NEGATIVE) 07/02/18 19:55 Urine Ketones Negative mg/dL (NEGATIVE) 07/02/18 19:55 Urine Blood Large (NEGATIVE) H 07/02/18 19:55 Urine Nitrate Negative (NEGATIVE) 07/02/18 19:55 Urine Bilirubin Negative (NEGATIVE) 07/02/18 19:55 Urine Urobilinogen 0.2 E.U./dL (<1 E.U./dL) 07/02/18 19:55 Ur Leukocyte Esterase Negative [place]ania/uL (NEGATIVE) 07/02/18 19:55 Urine RBC 5 - 10 /hpf (0-2) 07/02/18 19:55 Urine WBC 2 - 5 /hpf (0-6) 07/02/18 19:55 Ur Epithelial Cells 6 - 8 /hpf (0-5) 07/02/18 19:55 Urine Bacteria Many (NEG) 07/02/18 19:55 - Hospital Course Hospital Course: 1. COPD, acute exacerbation. 2. Pulmonary hypertension worsening. 3. Breast cancer Underwent cardiac cath by Dr. Welsh. Normal coronaries. Elevated right heart pressures. Started on sildanafil. Dr. Hameed followed. CT chest COPD changes. Condition improved during hospitalization. Discharge Exam - Head Exam Head Exam: ATRAUMATIC, NORMAL INSPECTION, NORMOCEPHALIC - Eye Exam Pupil Exam: NORMAL ACCOMODATION - ENT Exam ENT Exam: Mucous Membranes Dry - Neck Exam Neck exam: Normal Inspection - Respiratory Exam Respiratory Exam: Clear to PA & Lateral, NORMAL BREATHING PATTERN - Cardiovascular Exam Cardiovascular Exam: REGULAR RHYTHM, +S1, +S2 - GI/Abdominal Exam GI & Abdominal Exam: Normal Bowel Sounds, Unremarkable - Extremities Exam Extremities exam: normal inspection - Back Exam Back exam: NORMAL INSPECTION - Neurological Exam Neurological exam: Alert, Normal Gait, Oriented x3 - Psychiatric Exam Psychiatric exam: Normal Affect, Normal Mood - Skin Skin Exam: Normal Color, Warm Discharge Plan - Follow Up Plan Condition: IMPROVED Disposition: HOME/ ROUTINE Patient education suggested?: Yes Referrals: Lizbet Phillips MD [Staff Provider] - Bibi Welsh MD [Staff Provider] - Anthony Hameed MD [Staff Provider] - Clinical Quality Measures - CQM - Stroke Antithrombotic Prescribed: Yes - Date & Time of Discharge Summary Date of Discharge Summary: 07/07/18
[2018-07-07] MEDS: Albuterol-Ipratrop 3 mg / 0.5 (3 ml) UD IH SCH ×2 (01:56→07:24)
[2018-07-07 05:47] VITALS: RESP 20; TEMP 98; O2SAT 96
[2018-07-07] MEDS: Budesonide 0.5 mg/2 ml Inhal Susp UD IH SCH (07:24)
[2018-07-07 07:25] LABS: GRAN # 4.35 (1.4-6.5); GRAN % 77.7 % (50.0-68.0); HEMOGLOBIN 10.2 g/dL (12.0-16.0); LYMPH # 0.5 (1.2-3.4); MEAN CELL VOLUME 96.4 fl (80.0-105.0); MEAN CORPUSCULAR HEMOGLOBIN 30.4 pg (25.0-35.0); MEAN CORPUSCULAR HGB CONC 31.5 g/dl (31.0-37.0); MEAN PLATELET VOLUME 9.2 fl (7.0-11.0); MONO # 0.8 (0.1-0.6); MONO % 14.3 % (1.0-6.0); RBC 3.36 10^6/uL (3.5-6.1); RED CELL DISTRIBUTION WIDTH 20.3 % (11.5-14.5); WHITE BLOOD COUNT 5.6 10^3/uL (4.5-11.0)
[2018-07-07 07:38] LABS: BLOOD UREA NITROGEN 29 mg/dL (7-21); GFR NON-AFRICAN AMERICAN > 60
--- NOTE | 2018-07-07 08:57 | PN ---
DATE: 07/07/2018 SUBJECTIVE: The patient appears very comfortable this morning. She is not short of breath at rest. PHYSICAL EXAMINATION: VITAL SIGNS: Temperature 98.0, pulse 58, respirations 18/20, blood pressure 129/63. Oxygen saturation on room air is 96%. HEENT: Normocephalic, atraumatic. NECK: No JVD. CARDIOVASCULAR: Positive S1, S2. Questionable S3 gallop. LUNGS: Clear bilaterally. EXTREMITIES: Minimal/less edema. No cyanosis or clubbing. Calves are nontender to palpation. GI: Abdomen is soft, nontender and nondistended. Bowel sounds are positive. SKIN: No acute rash. NEUROLOGIC: Exam limited at the present time. PERTINENT LABORATORY DATA: Right heart catheterization was done yesterday. The pulmonary artery pressure is 25/10. The mean pulmonary artery pressure is 15 mmHg. PVR--6 fleming units. IMPRESSION: 1. Acute bronchitis. 2. Chronic obstructive pulmonary disease. 3. Mild congestive heart failure. 4. Coronary artery disease. 5. Mild anemia. PLAN: The patient appears very comfortable this morning. She is not short of breath at rest. She does state to feeling much, much better overall. I did discuss the case with the night nurse at length. The night nurse stated the patient had a very good night. On physical exam, her lungs remain clear. In addition, the oxygen saturation on room air is now 96%. I will continue with the current nebulizer treatments and oral prednisone for now. The patient did undergo a right heart catheterization yesterday. The pressures are noted above. I will discuss the above with Dr. Welsh this morning. Clinical status of the patient is significantly improved overall. She is for discharge later today. She is very well aware that she will need to follow up with my partner, Dr. Mendosa, in the near future. I will discuss the above with the attending physician. Anthony Hameed MD [email or web address]
[2018-07-07] MEDS: Sildenafil 20 MG TAB PO SCH (10:45)
[2018-07-07 10:47] VITALS: BP 144/67; PULSE 71
[2018-07-07] MEDS: Fluticasone Nasal 50 mcg/Spray NS SCH (10:50)
--- NOTE | 2018-07-07 15:14 | PN ---
DATE: 07/07/2018 REASON FOR CONSULTATION: Followup, cardiac evaluation, history of coronary artery disease, CABG, admitted with shortness of breath, possibly upper respiratory tract infection, underwent cardiac cath on the right heart, possible primary pulmonary hypertension, though PA pressure was normal, but increased pulmonary vascular resistant. SUBJECTIVE: The patient denies any chest pain, shortness of breath, any palpitations and feels a lot better. PHYSICAL EXAMINATION: VITAL SIGNS: Temperature afebrile, heart rate 60, and blood pressure 129/63. HEENT: PERRLA. Extraocular muscles intact. NECK: Supple. No carotid bruit or thyromegaly. CHEST: Clear to auscultation. HEART: S1 and S2 regular. ABDOMEN: Soft. EXTREMITIES: Clubbing and cyanosis negative. LABORATORY DATA: Blood workup as follows; WBC 5.3, hemoglobin 10.2, hematocrit 32.4, platelet count 330. Chemistries showed sodium 130, potassium 4, chloride 104, carbon dioxide 30, anion gap 9, BUN 29, and creatinine 0.9. IMPRESSION AND PLAN: A 78-year-old female with past medical history significant for coronary artery disease, status post coronary artery bypass graft after the cardiac catheterization 2012; admitted with shortness of breath, possibly bronchitis and echocardiogram shows elevated right ventricular systolic pressure. The patient underwent right heart catheterization yesterday that revealed right atrium 324, right ventricle 27/4, pulmonary artery 25/10, P 15, pulmonary capillary wedge pressure 5 to 6, cardiac output 2.5 1.4, pulmonary vascular resistance 6, possible pulmonary hypertension with a normal wedge and though the patient has a normal pulmonary artery pressure, but increased pulmonary vascular resistance. Currently on sildenafil. History of coronary artery disease. Discussed with Dr. Hameed. We will continue sildenafil. The patient will not qualify for any pulmonary hypertensive medication because it is normal pulmonary artery pressure. RECOMMENDATION: Continue amiodarone for paroxysmal atrial fibrillation, continue gentle diuresis, continue atorvastatin, continue metoprolol, continue sildenafil and follow up in three to four weeks with me and continue . Possible discharge home today. Thank you Dr. Phillips for providing us the opportunity in taking care of the patient, James Calderon. Bibi Welsh MD [facility] # [id number]
== END 2018-07-07 12:28 | disposition home or self-care (01) | DRG 191 ==
LOC: ED 11:32 → ERH 13:18 → 2RSO 15:26 → OBSVTOIN 19:58 → 2RSO 07-03 18:31
PROVIDERS: ADMIT Internal Medicine Nephrology; ATTEND Internal Medicine Medical Oncology
PROC: 3E0F7GC Introduction of Other Therapeutic Substance into Respiratory Tract, Via Natural or Artificial Opening (ICD-10-PCS; 2018-07-02)
PROC: 4A023N6 Measurement of Cardiac Sampling and Pressure, Right Heart, Percutaneous Approach (ICD-10-PCS; principal; 2018-07-06)
DX: J44.1 Chronic obstructive pulmonary disease with (acute) exacerbation (principal); I50.30 Unspecified diastolic (congestive) heart failure; J44.0 Chronic obstructive pulmonary disease with (acute) lower respiratory infection; J20.9 Acute bronchitis, unspecified; I25.10 Atherosclerotic heart disease of native coronary artery without angina pectoris; I11.0 Hypertensive heart disease with heart failure; D64.9 Anemia, unspecified; C50.919 Malignant neoplasm of unspecified site of unspecified female breast; I27.20 Pulmonary hypertension, unspecified; I48.0 Paroxysmal atrial fibrillation; I08.3 Combined rheumatic disorders of mitral, aortic and tricuspid valves; Z79.51 Long term (current) use of inhaled steroids; Z87.891 Personal history of nicotine dependence; Z95.1 Presence of aortocoronary bypass graft

== ENCOUNTER 2018-07-23 10:13 | Emergency (ER) | payer MEDICARE, MEDICAID ==
[2018-07-23 10:23] VITALS: BMI 25.6
[2018-07-23 10:24] VITALS: TEMP 97.8
--- NOTE | 2018-07-23 11:34 | ED PDOC ---
Arrival/HPI - General Chief Complaint: Back Pain Time Seen by Provider: 07/23/18 10:33 Historian: Patient - History of Present Illness Narrative History of Present Illness (Text): 07/23/18 11:28 78 year old female, whose past medical history includes CHF, COPD, breast cancer, herniated disc, and chronic back pain, who presents to the emergency department complaining of lower back pain x couple days. Patient notes pain radiates up the back and down the legs. Patient notes pain as a constant throbbing pain and notes her legs feel like jelly. These symptoms are same as usual back pain. However, the pain is worse than usual. Patient has tried heating pads, which usually provide relief, but this time did not. Patient denies any trauma/injury, fever, chills, chest pain, shortness of breath, nausea, vomiting, diarrhea, neck pain, headache, dizziness, or any other complaints. Time/Duration: < week Symptom Onset: Gradual Symptom Course: Unchanged Activities at Onset: Light Context: Home Past Medical History - Provider Review Nursing Documentation Reviewed: Yes - Infectious Disease Hx of Infectious Diseases: None - Cardiac Hx Pacemaker: No - Pulmonary Hx Asthma: Yes Hx Chronic Obstructive Pulmonary Disease (COPD): Yes - Neurological Hx Neurological Disorder: No - HEENT Hx HEENT Disorder: Yes (reading glasses) Hx Cataracts: Yes (cataract sx b/l lens implant age 52) - Hematological/Oncological Hx Blood Transfusions: No Hx Blood Transfusion Reaction: No Hx Cancer: Yes (R breast CA/On chemo) - Integumentary Hx Dermatological Disorder: (ttoos) Other/Comment: b/l arms multiple eccymotic areas "I bruise easily. I'm on blood thinners" - Musculoskeletal/Rheumatological Hx Falls: No - Gastrointestinal Hx Gastroesophageal Reflux: Yes Other/Comment: pt denies colon polyps, pt had stomach polypectomy, hx gastroenteritis, recent colonoscopy 02/16/18 + large polyp - Genitourinary/Gynecological Hx Genitourinary Disorders: No - Psychiatric Hx Emotional Abuse: No Hx Physical Abuse: No Hx Substance Use: No - Surgical History Hx Open Heart Surgery: Yes Other/Comment: R breast sx. "tumor in the stomach" - Anesthesia Hx Anesthesia: Yes Hx Anesthesia Reactions: No - Suicidal Assessment Feels Threatened In Home Enviroment: No Family/Social History - Physician Review Nursing Documentation Reviewed: Yes Family/Social History: Unknown Family HX Smoking Status: Former Smoker Hx Alcohol Use: No Hx Substance Use: No Hx Substance Use Treatment: No Allergies/Home Meds Allergies/Adverse Reactions: Allergies No Known Allergies Allergy (Verified 07/02/18 11:56) Home Medications: Home Meds Medication Instructions Recorded Confirmed Arformoterol Tartrate [Brovana] 1 alfie NEB BID 11/08/12 07/23/18 Atorvastatin Calcium [Lipitor] 20 mg PO DAILY 11/08/12 07/23/18 Albuterol HFA [Ventolin HFA 90 1 puff IH PRN PRN 12/15/16 07/23/18 mcg/actuation (8 g)] Metoprolol Tartrate [Lopressor] 50 mg PO BID 12/18/16 07/23/18 Pantoprazole Sodium [Protonix] 40 mg PO ACB 12/18/16 07/23/18 hydroCHLOROthiazide [Hydrodiuril] 25 mg PO DAILY 12/18/16 07/23/18 Escitalopram [Lexapro] 10 mg PO DAILY 03/21/17 07/23/18 Fluticasone Propionate [Flovent 1 puff IH BID 03/21/17 07/23/18 Hfa] Umeclidinium [place] [Incruse 1 puff IH DAILY 03/21/17 07/23/18 Ellipta] Amiodarone [Cordarone] 200 mg PO DAILY 02/14/18 07/23/18 Aspirin [Ecotrin] 81 mg PO DAILY 02/14/18 07/23/18 Montelukast [Singulair] 10 mg PO HS 02/14/18 07/23/18 Sildenafil [Revatio] 20 mg PO BID 07/07/18 07/23/18 Review of Systems - Physician Review All systems were reviewed & negative as marked: Yes - Review of Systems Constitutional: Normal Eyes: Normal ENT: Normal Respiratory: Normal. absent: SOB, Cough Cardiovascular: Normal. absent: Chest Pain Gastrointestinal: Normal. absent: Abdominal Pain Genitourinary Female: Normal. absent: Dysuria, Frequency Musculoskeletal: Back Pain (lower back pain that radiates up back and down legs), Other (jelly like sensation in legs) Skin: Normal. absent: Rash Neurological: Normal. absent: Headache Endocrine: Normal Hemo/Lymphatic: Normal Psychiatric: Normal Physical Exam Vital Signs Reviewed: Yes Vital Signs Temp Pulse Resp BP Pulse Ox 07/23/18 10:23 97.8 F 71 18 124/75 94 L Temperature: Afebrile Blood Pressure: Normal Pulse: Regular Respiratory Rate: Normal Appearance: Positive for: Well-Appearing, Non-Toxic, Comfortable Pain Distress: None Mental Status: Positive for: Alert and Oriented X 3 - Systems Exam Head: Present: Atraumatic, Normocephalic Pupils: Present: PERRL Extroacular Muscles: Present: EOMI Conjunctiva: Present: Normal Mouth: Present: Moist Mucous Membranes Neck: Present: Normal Range of Motion Respiratory/Chest: Present: Clear to Auscultation, Good Air Exchange. No: Respiratory Distress, Accessory Muscle Use Cardiovascular: Present: Regular Rate and Rhythm, Normal S1, S2. No: Murmurs Abdomen: No: Tenderness, Distention, Peritoneal Signs Back: Present: Other (posterior rib cage tenderness) Upper Extremity: Present: Normal Inspection. No: Cyanosis, Edema Lower Extremity: Present: Edema Neurological: Present: GCS=15, CN II-XII Intact, Speech Normal Skin: Present: Warm, Dry, Normal Color. No: Rashes Psychiatric: Present: Alert, Oriented x 3, Normal Insight, Normal Concentration Medical Decision Making ED Course and Treatment: 07/23/18 11:36 Impression: 78 year old female presents to the Emergency department complaining of lower back pain x couple days. Plan: -- Labs -- Xray Ribs -- EKG -- Reassess and disposition Progress Notes: 07/23/18 13:15 NSR at 63 bpm. Normal UT intervals. Prolonged QS intervals. Prolonged QT intervals. RBBB. No change from EKG on 07/02/18. 07/23/18 14:40 Xray Ribs reviewed, shows: IMPRESSION: No visible, displaced rib fractures. 07/23/18 15:19 Pt now experiencing upper back pain. 07/23/18 15:50 Case and workup results discussed with Dr. Phillips, who suggests gramix 400mg subcutaneous for neutropenia and Augmentin prophylactically. States pt should have oxycodone at home from previous prescription. Pt to be d/c home. 07/23/18 17:12 When questioned about oxycodone, pt says she ran out. Pt never gave a urine sample. However, there were no complaints about urinary symptoms. - Scribe Statement The provider has reviewed the documentation as recorded by the Scribe Margi Lake All medical record entries made by the Scribe were at my direction and personally dictated by me. I have reviewed the chart and agree that the record accurately reflects my personal performance of the history, physical exam, medical decision making, and the department course for this patient. I have also personally directed, reviewed, and agree with the discharge instructions and disposition. Disposition/Present on Arrival - Present on Arrival Any Indicators Present on Arrival: No History of DVT/PE: No History of Uncontrolled Diabetes: No Urinary Catheter: No History of Decub. Ulcer: No History Surgical Site Infection Following: None - Disposition Have Diagnosis and Disposition been Completed?: Yes Diagnosis: Chronic back pain, Neutropenia Disposition: HOME/ ROUTINE Disposition Time: 17:07 Patient Plan: Discharge Discharge Instructions (ExitCare): Chronic Pain, Neutropenia (DC) Prescriptions: Amoxicillin/Clavulanate [Augmentin 875 MG-125 MG] 1 tab PO BID #14 tab oxyCODONE [oxyCODONE Immediate Release Tab] 5 mg PO Q6H PRN #15 tab PRN Reason: Pain, Severe (8-10) Referrals: Lizbet Phillips MD [Family Provider] - Follow up with primary (On July 27 as previously scheduled.) Forms: [employer] (Kyrgyz)
[2018-07-23 12:51] LABS: BASO # 0.01 K/mm3 (0.0-2.0); BASO % 0.5 % (0.0-3.0); EOS % 0.5 % (1.5-5.0); GRAN # 1.7 (1.4-6.5); GRAN % 77.9 % (50.0-68.0); HEMOGLOBIN 9.8 g/dL (12.0-16.0); LYMPH # 0.3 (1.2-3.4); LYMPH % 13.8 % (22.0-35.0); MEAN CELL VOLUME 94.9 fl (80.0-105.0); MEAN CORPUSCULAR HEMOGLOBIN 31.3 pg (25.0-35.0); MEAN PLATELET VOLUME 9.3 fl (7.0-11.0); MONO # 0.2 (0.1-0.6); MONO % 7.3 % (1.0-6.0); RBC 3.13 10^6/uL (3.5-6.1); RED CELL DISTRIBUTION WIDTH 19.2 % (11.5-14.5); WHITE BLOOD COUNT 2.2 10^3/uL (4.5-11.0)
[2018-07-23 12:59] LABS: BLOOD UREA NITROGEN 9 mg/dL (7-21); CALCIUM 8.7 mg/dL (8.4-10.5); GFR NON-AFRICAN AMERICAN > 60
[2018-07-23 13:00] LABS: B-TYPE NATRIURETIC PEPTIDE 1740 pg/mL (0-450); TROPONIN I 0.03 ng/mL
--- NOTE | 2018-07-23 14:29 | RAD ---
Date of service: 07/23/2018 PROCEDURE: Radiographs of the chest and bilateral ribs HISTORY: b/l rib pain COMPARISON: 07/05/2018 CT thorax. 07/02/2018 single-view chest TECHNIQUE: Frontal radiograph of the chest and multiple oblique radiographs of the bilateral ribs were obtained. FINDINGS: RIGHT RIBS: No fracture or focal lesion visualized. LEFT RIBS: No fracture or focal lesion visualized. LUNGS: Stable interstitial lung disease PLEURA: No pneumothorax or pleural fluid. CARDIOVASCULAR: Normal cardiac size. No pulmonary vascular congestion. Venous access catheter in stable, satisfactory position. Atherosclerotic changes primarily in the aortic arch region. OTHER FINDINGS: None. IMPRESSION: No visible, displaced rib fractures.
[2018-07-23 15:01] VITALS: BP 140/68; RESP 19
[2018-07-23] MEDS ORDERED: Morphine 4 mg/ml ISec IVP STA (15:19)
[2018-07-23] MEDS: oxyCODONE 5 mg Immediate Release Tab PO STA (16:29)
[2018-07-23] MEDS: Amoxicillin-Clav 875-125 mg Tab PO STA (16:30)
[2018-07-23 17:31] VITALS: PULSE 78; O2SAT 97
--- NOTE | 2018-07-24 09:08 | CARD ---
APPROVED REPORT Date of service: 07/23/2018 EKG Measurement Heart [id number] <Conclusion> Normal sinus rhythm Right bundle branch block Left anterior fascicular block Bifascicular block NSSTW changes No change
--- NOTE | 2018-07-24 09:35 | RAD ---
Date of service: 07/23/2018 HISTORY: back pain COMPARISON: No prior. FINDINGS: BONES: There is a mild compression deformity in the upper thoracic spine. The age of this is uncertain. The exact level is difficult to determine DISC SPACES: Normal. SOFT TISSUES: Normal. OTHER FINDINGS: None. IMPRESSION: There is a mild compression deformity in the upper thoracic spine. The age of this is uncertain. The exact level is difficult to determine
== END 2018-07-23 17:38 | disposition home or self-care (01) ==
LOC: ED 10:13
DX: M54.9 Dorsalgia, unspecified (principal); G89.29 Other chronic pain; D70.9 Neutropenia, unspecified; I50.9 Heart failure, unspecified; J44.9 Chronic obstructive pulmonary disease, unspecified; Z85.3 Personal history of malignant neoplasm of breast; Z87.891 Personal history of nicotine dependence
CPT/HCPCS: 71111; 72082; 80048; 82550; 83615; 83735; 83880; 84484; 85025; 93005; 96372; 99283; J1447

== ENCOUNTER 2018-07-28 10:39 | Inpatient (IN) | payer MEDICARE, MEDICAID ==
[2018-07-28 10:41] VITALS: BMI 25.6
[2018-07-28] MEDS ORDERED: Morphine 4 mg/ml ISec IVP STA (11:13)
[2018-07-28] MEDS ORDERED: Lidocaine 5% Patch TD STA (11:13)
--- NOTE | 2018-07-28 11:30 | ED PDOC ---
Arrival/HPI - General Chief Complaint: Lower Extremity Problem/Injury Time Seen by Provider: 07/28/18 10:49 Historian: Patient - History of Present Illness Narrative History of Present Illness (Text): 07/28/18 11:15 78 year old female, with past medical history of hypertension, CAD with CABG, COPD, h/o CAP ( November 2016), multi level degenerative disc, and breast CA, presents to the ED complaining of right leg discomfort, numbness and swelling since couple days. Patient informs associated sharp back pain worse with movement to the right side. Patient denies any other associated somatic complaints. Patient denies any fevers, chills, headache, dizziness, chest pain, dyspnea on exertion, cough, abdominal pain, nausea, vomiting, diarrhea, neck pain, or any other complaints. PMD: Dr. Phillips Time/Duration: < week Symptom Onset: Gradual Symptom Course: Unchanged Quality: Aching Activities at Onset: Light Context: Home Past Medical History - Provider Review Nursing Documentation Reviewed: Yes - Infectious Disease Hx of Infectious Diseases: None - Cardiac Hx Pacemaker: No - Pulmonary Hx Asthma: Yes Hx Chronic Obstructive Pulmonary Disease (COPD): Yes - Neurological Hx Neurological Disorder: No - HEENT Hx HEENT Disorder: Yes (reading glasses) Hx Cataracts: Yes (cataract sx b/l lens implant age 52) - Hematological/Oncological Hx Blood Transfusions: No Hx Blood Transfusion Reaction: No Hx Cancer: Yes (R breast CA/On chemo) - Integumentary Hx Dermatological Disorder: (ttoos) Other/Comment: b/l arms multiple eccymotic areas "I bruise easily. I'm on blood thinners" - Musculoskeletal/Rheumatological Hx Falls: No - Gastrointestinal Hx Gastroesophageal Reflux: Yes Other/Comment: pt denies colon polyps, pt had stomach polypectomy, hx gastroenteritis, recent colonoscopy 02/16/18 + large polyp - Genitourinary/Gynecological Hx Genitourinary Disorders: No - Psychiatric Hx Emotional Abuse: No Hx Physical Abuse: No Hx Substance Use: No - Surgical History Hx Open Heart Surgery: Yes Other/Comment: R breast sx. "tumor in the stomach" - Anesthesia Hx Anesthesia: Yes Hx Anesthesia Reactions: No Hx Malignant Hyperthermia: No - Suicidal Assessment Feels Threatened In Home Enviroment: No Family/Social History - Physician Review Nursing Documentation Reviewed: Yes Family/Social History: Unknown Family HX Smoking Status: Former Smoker Hx Alcohol Use: No Hx Substance Use: No Hx Substance Use Treatment: No Allergies/Home Meds Allergies/Adverse Reactions: Allergies No Known Allergies Allergy (Verified 07/31/18 14:44) Home Medications: Home Meds Medication Instructions Recorded Confirmed RX: Metoprolol Tartrate [Lopressor] 50 mg PO BID 12/18/16 07/31/18 RX: hydroCHLOROthiazide 25 mg PO DAILY 12/18/16 07/31/18 [Hydrodiuril] RX: Escitalopram [Lexapro] 10 mg PO DAILY 03/21/17 07/31/18 RX: Fluticasone Propionate 1 puff IH BID 03/21/17 07/31/18 [Flovent Hfa] RX: Umeclidinium [place] [Incruse 1 puff IH DAILY 03/21/17 07/31/18 Ellipta] RX: Amiodarone [Cordarone] 200 mg PO DAILY 02/14/18 07/31/18 RX: Aspirin [Ecotrin] 81 mg PO DAILY 02/14/18 07/31/18 RX: Sildenafil [Revatio] 20 mg PO BID 07/07/18 07/31/18 Review of Systems - Physician Review All systems were reviewed & negative as marked: Yes - Review of Systems Constitutional: absent: Fevers Respiratory: absent: Cough Cardiovascular: Edema (right leg swelling). absent: Chest Pain Gastrointestinal: absent: Abdominal Pain, Diarrhea, Nausea, Vomiting Genitourinary Female: absent: Dysuria, Urine Output Changes Musculoskeletal: Back Pain, Myalgias (Right leg discomfort). absent: Neck Pain Skin: absent: Rash Neurological: absent: Headache, Dizziness Physical Exam Vital Signs Reviewed: Yes Vital Signs Temp Pulse Resp BP Pulse Ox 07/28/18 10:48 98.3 F 69 16 132/89 95 07/28/18 10:41 97.9 F 67 18 123/66 93 L Temperature: Afebrile Blood Pressure: Normal Pulse: Regular Respiratory Rate: Normal Appearance: Positive for: Well-Appearing, Non-Toxic, Comfortable Pain Distress: None Mental Status: Positive for: Alert and Oriented X 3 - Systems Exam Head: Present: Atraumatic, Normocephalic Pupils: Present: PERRL Extroacular Muscles: Present: EOMI Conjunctiva: Present: Normal Neck: Present: Normal Range of Motion Respiratory/Chest: Present: Good Air Exchange, Decreased Breath Sounds (Diminished breath sounds bilaterally). No: Respiratory Distress, Accessory Muscle Use Cardiovascular: Present: Regular Rate and Rhythm, Normal S1, S2. No: Murmurs Abdomen: No: Tenderness, Distention, Peritoneal Signs Back: Present: Normal Inspection Upper Extremity: Present: Normal Inspection. No: Cyanosis, Edema Lower Extremity: Present: Edema (+2 pitting edema bilaterally) Neurological: Present: GCS=15, CN II-XII Intact, Speech Normal Skin: Present: Warm, Dry, Normal Color. No: Rashes Psychiatric: Present: Alert, Oriented x 3, Normal Insight, Normal Concentration Medical Decision Making ED Course and Treatment: 07/28/18 11:07 Impression: 78 year old female presents to the ED complaining of right leg pain and swelling. Differential Diagnosis included but are not limited to: -- Compression fracture secondary to metastases -- DVT Plan: -- CT Of Lumbar Spine -- CT of Thoracic Spine -- Labs -- Chest X-ray -- Lidoderm -- Morphine -- Urinalysis -- US of Lower Extremity -- Reassess and disposition Prior Visits: Notes and results from previous visits were reviewed. Progress Notes: 07/28/18 13:08 Labs reviewed with mild anemia noted. CT thoracic spine reveals new compression fracture at T5 with no associated metastases or lytic lesions. Discussion with Dr. Phillips(PCP) regarding diagnosis who accepts the patient. - Lab Interpretations Lab Results: 07/28/18 11:45 07/28/18 11:45 Lab Results 07/28/18 11:45: PT 12.8 H, INR 1.11, APTT 30.1 07/28/18 11:45: Sodium 137, Potassium 3.8, Chloride 106, Carbon Dioxide 25, Anion Gap 10, BUN 9, Creatinine 0.8, Est GFR ( Amer) > 60, Est GFR (Non- Af Amer) > 60, Random Glucose 82, Calcium 8.8, Magnesium 1.8, Total Bilirubin 1.0, AST 25, ALT 41, Alkaline Phosphatase 93, Troponin I 0.01 D, NT-Pro-B Natriuret Pep 1770 H, Total Protein 5.4 L, Albumin 2.9 L, Globulin 2.5, Albumin/Globulin Ratio 1.2 07/28/18 11:45: WBC 5.7 D, RBC 3.35 L, Hgb 10.3 L, Hct 31.9 L, MCV 95.2, MCH 30.7, MCHC 32.3, RDW 19.4 H, Plt Count 268, MPV 9.0, Gran % 71.9 H, Lymph % (Auto) 11.4 L, [facility] % (Auto) 15.6 H, Eos % (Auto) 0.0 L, Baso % (Auto) 1.1, Gran # 4.11, Lymph # (Auto) 0.7 L, [facility] # (Auto) 0.9 H, Eos # (Auto) 0.0, Baso # (Auto) 0.06, Neutrophils % (Manual) 64, Band Neutrophils % 2, Lymphocytes % (Manual) 15 L, Atypical Lymphs % 1 H, Monocytes % (Manual) 15 H, Metamyelocytes % 3, Platelet Evaluation Normal, Anisocytosis (manual) Slight, Tear Drop Cells Slight I have reviewed the lab results: Yes - RAD Interpretation Narrative RAD Interpretations (Text): 07/28/18 12:54 Chest X-ray reviewed by radiologist, shows: FINDINGS: LUNGS: Faint atelectatic changes at the lung bases. PLEURA: No significant pleural effusion identified, no pneumothorax apparent. CARDIOVASCULAR: No atherosclerotic calcification present No radiographic findings to suggest acute or significant cardiovascular disease. Incidental Finding(s): Postoperative changes related to sternotomy. Venous access catheter in stable, satisfactory position. OSSEOUS STRUCTURES: No significant abnormalities. VISUALIZED UPPER ABDOMEN: Normal. OTHER FINDINGS: None. IMPRESSION: No active disease. No significant interval change compared to the prior examination(s). 07/28/18 13:20 CT of Thoracic Spine reviewed by radiologist, shows: FINDINGS: VERTEBRAE: There is a new mild compression fracture of T5. This does not encroach upon the spinal canal. There is no evidence of a lytic lesion. There are no lytic lesions identified at any level. There are no sclerotic lesions.. DISCS/SPINAL CANAL/NEURAL FORAMINA: Within the limits of the CT technique, no disc herniation seen. No central canal or neural foraminal stenosis.. PARASPINAL SOFT TISSUES: Unremarkable. OTHER FINDINGS: Aortic calcifications are seen. Bibasilar pulmonary infiltrates are seen. IMPRESSION: New mild compression fracture of T5. No evidence of metastatic disease 07/28/18 13:22 CT of Lumbar Spine reviewed by radiologist, shows: FINDINGS: VERTEBRAE: There are no lytic or sclerotic lesions. There are no compression fractures. There is curvature of the spine convex to the left with a Ford angle of 22 degrees DISCS/SPINAL CANAL/NEURAL FORAMINA: There is multilevel disc degeneration with vacuum disc at each level. There is loss of disc height. PARASPINAL SOFT TISSUES: Unremarkable. OTHER FINDINGS: None. IMPRESSION: There are no lytic or sclerotic lesions. There are no compression fractures. There is curvature of the spine convex to the left with a Ford angle of 22 degrees Radiology Orders: 07/28/18 11:07 DUPLEX LOWER EXTRM VEIN BILAT [US] Stat 07/28/18 11:10 CHEST PORTABLE [RAD] Stat 07/28/18 11:15 LUMBAR SPINE W/O CONTRAST [CT] Stat THORACIC SPINE W/O CONT [CT] Stat Motor Vehicle Salesperson: Radiologist - EKG Interpretation EKG Interpretation (Text): 07/28/18 11:09 EKG: Ordered, reviewed, and independently interpreted the EKG. Rate : 68 BPM Rhythm : NSR Interpretation : T Wave Inversions in precordial leads. RBBB Interpreted by ED Physician: Yes Type: 12 lead EKG - Medication Orders Current Medication Orders: Discontinued Medications Lidocaine (Lidoderm) 1 ea TD STAT STA Stop: 07/28/18 11:14 Morphine Sulfate (Morphine) 4 mg IVP STAT STA Stop: 07/28/18 11:14 - Scribe Statement The provider has reviewed the documentation as recorded by the Scribe Gunner Sinha. All medical record entries made by the Scribe were at my direction and personally dictated by me. I have reviewed the chart and agree that the record accurately reflects my personal performance of the history, physical exam, medical decision making, and the department course for this patient. I have also personally directed, reviewed, and agree with the discharge instructions and disposition. Disposition/Present on Arrival - Present on Arrival Any Indicators Present on Arrival: No History of DVT/PE: No History of Uncontrolled Diabetes: No Urinary Catheter: No History of Decub. Ulcer: No History Surgical Site Infection Following: None - Disposition Have Diagnosis and Disposition been Completed?: Yes Diagnosis: Compression fracture Disposition: HOSPITALIZED Disposition Time: 13:08 Patient Plan: Admission Condition: FAIR
[2018-07-28 11:51] LABS: BASO # 0.06 K/mm3 (0.0-2.0); BASO % 1.1 % (0.0-3.0); GRAN # 4.11 (1.4-6.5); GRAN % 71.9 % (50.0-68.0); HEMOGLOBIN 10.3 g/dL (12.0-16.0); LYMPH # 0.7 (1.2-3.4); LYMPH % 11.4 % (22.0-35.0); MEAN CELL VOLUME 95.2 fl (80.0-105.0); MEAN CORPUSCULAR HEMOGLOBIN 30.7 pg (25.0-35.0); MEAN CORPUSCULAR HGB CONC 32.3 g/dl (31.0-37.0); MONO # 0.9 (0.1-0.6); MONO % 15.6 % (1.0-6.0); PLATELET COUNT 268 10^3/uL (120.0-450.0); RBC 3.35 10^6/uL (3.5-6.1); RED CELL DISTRIBUTION WIDTH 19.4 % (11.5-14.5); WHITE BLOOD COUNT 5.7 10^3/uL (4.5-11.0)
[2018-07-28 12:03] LABS: INR 1.11; PARTIAL THROMBOPLASTIN TIME 30.1 Seconds (25.1-36.5); PROTHROMBIN TIME 12.8 SECONDS (9.4-12.5)
--- NOTE | 2018-07-28 12:06 | RAD ---
Date of service: 07/28/2018 HISTORY: sob COMPARISON: 07/05/2018 CT thorax 07/02/2018 single-view chest FINDINGS: LUNGS: Faint atelectatic changes at the lung bases. PLEURA: No significant pleural effusion identified, no pneumothorax apparent. CARDIOVASCULAR: No atherosclerotic calcification present No radiographic findings to suggest acute or significant cardiovascular disease. Incidental Finding(s): Postoperative changes related to sternotomy. Venous access catheter in stable, satisfactory position. OSSEOUS STRUCTURES: No significant abnormalities. VISUALIZED UPPER ABDOMEN: Normal. OTHER FINDINGS: None. IMPRESSION: No active disease. No significant interval change compared to the prior examination(s).
[2018-07-28 12:13] LABS: B-TYPE NATRIURETIC PEPTIDE 1770 pg/mL (0-450); TROPONIN I 0.01 ng/mL
[2018-07-28 12:36] LABS: ANISOCYTOSIS SLIGHT; ATYPICAL LYMPHOCYTE 1 % (0.0-0.0); BAND 2 % (0-2); LYMPHOCYTE 15 % (22.0-35.0); METAMYELOCYTE 3 %; MONOCYTE 15 % (1.0-6.0); NEUTROPHIL 64 % (50.0-70.0); PLATELET ESTIMATE NORMAL (NORMAL); TEAR DROP CELLS SLIGHT
[2018-07-28 12:50] LABS: ALB/GLOB RATIO 1.2 (1.1-1.8); ALBUMIN 2.9 g/dL (3.0-4.8); ALT/SGPT 41 U/L (7-56); AST/SGOT 25 U/L (14-36); BLOOD UREA NITROGEN 9 mg/dL (7-21); CALCIUM 8.8 mg/dL (8.4-10.5); GFR NON-AFRICAN AMERICAN > 60
--- NOTE | 2018-07-28 13:00 | CT ---
Date of service: 07/28/2018 PROCEDURE: CT Thoracic Spine without contrast HISTORY: h/o breast ca w/ back pain COMPARISON: Chest CT 07/05/2018 TECHNIQUE: Axial computed tomography images were obtained of the thoracic spine without intravenous contrast. Coronal and sagittal reformatted images were created and reviewed. Radiation dose: Total exam DLP = 620.46 mGy-cm. This CT exam was performed using one or more of the following dose reduction techniques: Automated exposure control, adjustment of the mA and/or kV according to patient size, and/or use of iterative reconstruction technique. FINDINGS: VERTEBRAE: There is a new mild compression fracture of T5. This does not encroach upon the spinal canal. There is no evidence of a lytic lesion. There are no lytic lesions identified at any level. There are no sclerotic lesions.. DISCS/SPINAL CANAL/NEURAL FORAMINA: Within the limits of the CT technique, no disc herniation seen. No central canal or neural foraminal stenosis.. PARASPINAL SOFT TISSUES: Unremarkable. OTHER FINDINGS: Aortic calcifications are seen. Bibasilar pulmonary infiltrates are seen. IMPRESSION: New mild compression fracture of T5. No evidence of metastatic disease
--- NOTE | 2018-07-28 13:03 | CT ---
Date of service: 07/28/2018 PROCEDURE: CT Lumbar Spine without contrast HISTORY: h/o breast ca w/ back pain COMPARISON: None available. TECHNIQUE: Axial computed tomography images were obtained of the lumbar spine without the use of intravenous contrast. Coronal and sagittal reformatted images were created and reviewed. Radiation dose: Total exam DLP = 880.75 mGy-cm. This CT exam was performed using one or more of the following dose reduction techniques: Automated exposure control, adjustment of the mA and/or kV according to patient size, and/or use of iterative reconstruction technique. FINDINGS: VERTEBRAE: There are no lytic or sclerotic lesions. There are no compression fractures. There is curvature of the spine convex to the left with a Ford angle of 22 degrees DISCS/SPINAL CANAL/NEURAL FORAMINA: There is multilevel disc degeneration with vacuum disc at each level. There is loss of disc height. PARASPINAL SOFT TISSUES: Unremarkable. OTHER FINDINGS: None. IMPRESSION: There are no lytic or sclerotic lesions. There are no compression fractures. There is curvature of the spine convex to the left with a Ford angle of 22 degrees
[2018-07-28] MEDS ORDERED: Influenza Vaccine 60 mcg/0.5 mL SYR (4YR UP) IM ONE (18:10)
[2018-07-28] MEDS ORDERED: Albuterol HFA 90 mcg/actuation (8 g) IH PRN (18:15)
[2018-07-28] MEDS ORDERED: Oxycodone/Acetaminophen 5/325 mg Tab PO PRN (18:23)
[2018-07-28] MEDS ORDERED: Morphine 4 mg/ml ISec IVP PRN (18:24)
[2018-07-28] MEDS ORDERED: Morphine 2 mg/ml ISec IVP PRN (18:32)
--- NOTE | 2018-07-28 18:42 | CON ---
DATE: 07/28/2018 CHIEF COMPLIANT: Back pain. HISTORY OF PRESENT ILLNESS: This is a 78-year-old woman with history of hypertension, CAD, with CABG, COPD, history of community-acquired pneumonia in 11/2016, multi-degenerative disk disease, breast cancer, who presented with left leg pain, discomfort, and swelling, past couple of days with short back pain radiating from mid thoracic to a lumbosacral radiating on the right side, aggravating with movements more towards right. No focal weakness of the extremities have seen. CAT scan of the lumbosacral spine showed no evidence of any compression fractures, but the MRI of the thoracic spine showed a new mass of compression fracture at T5 without any evidence of metastatic disease. She is moving all extremities without any difficulty as mid thoracic of low back pain. She is on chemotherapy for her breast cancer and has paresthesias of her extremities as well, which is most likely evidence of neuropathy following by breast cancer. PAST MEDICAL HISTORY: As above. FAMILY HISTORY: Noncontributory. SOCIAL HISTORY: No illicit drug use, smoking or EtOH abuse. REVIEW OF SYSTEMS: Fourteen-point review of systems is as per HPI. MEDICATIONS: Reviewed by nurse's reconciliation sheet. ALLERGIES: NO KNOWN DRUG ALLERGIES. LABORATORY DATA: Sodium 137, potassium 3.8, chloride 106, carbon dioxide 25, BUN of 9, creatinine 0.8 and random glucose 82. PHYSICAL EXAMINATION: GENERAL: The patient is sitting up in bed and in no acute distress. VITAL SIGNS: Temperature 98, pulse 62, blood pressure 144/69, respirations 18 and oxygen saturation 95% on room air. HEENT: Atraumatic and normocephalic. PERRLA. Extraocular muscles intact. NECK: Supple. No JVD. No adenopathy noted. LUNGS: Clear to auscultation. No adventitious sounds. HEART: S1 and S2. Normal rate and rhythm. No murmurs, rubs, or gallops. ABDOMEN: Soft, nontender, and nondistended. Bowel sounds present. EXTREMITIES: No clubbing. No cyanosis. Peripheral pulses 2+ felt bilaterally. NEUROLOGICAL: The patient is alert and oriented to person, place, and month and year. Speech is fluent without errors. Cranial nerves II through XII are intact. Motor exam; moves all extremities. Toes are downgoing bilaterally. Sensory exam; decreased light touch, pinprick, decreased vibration of the toes. DTR is 2+throughout and 1 in both knees and ankles. Coordination; [id number] intact. No dysmetria noted. Gait is deferred for now. MUSCULOSKELETAL: Mid thoracic T5 pain. CURRENT IMPRESSION: This is a 78-year-old woman with history of coronary artery disease, status post coronary artery bypass surgery, chronic obstructive pulmonary disease, right breast cancer on chemotherapy, who presented with back pain in mid thoracic to the right lumbosacral paresthesias done on her leg, as well as paresthesias of her extremities, and swollen on her right leg. The symptoms secondary to the T5 compression fracture without any mass or sciatic lesions, causing worsening back pain and the patient has underlying mild peripheral neuropathy for underlying breast cancer and chemotherapy. RECOMMENDATIONS: At this time; 1. Interventional Radiology, consult for possible kyphoplasty for the mild T5 compression fracture. 2. Lidoderm patch. 3. Lyrica 50 mg p.o. at bedtime for neuropathic relief and tramadol 50 mg p.o. every 8 hours p.r.n. for acute onset of pain at the time. 4. Continue PT and OT. Flavio Viveros MD
--- NOTE | 2018-07-28 19:44 | HP ---
DATE OF EXAM: 07/28/2018 HISTORY OF PRESENT ILLNESS Ms. Ramirez is a 78-year-old female, well known to me from office. She was complaining of severe back pain and difficulty in walking and numbness in the right leg. She was advised to go to the ER. CT spine done in the ER showed compression fracture of T5 vertebra. She has history of CAD with CABG. History of severe COPD and pulmonary hypertension. Denies any nausea or vomiting. She has a history of breast cancer on the right breast, early stage, with high Oncotype score. Currently getting weekly Taxotere. Her last chemo was 2 weeks ago. PAST MEDICAL HISTORY: CABG, COPD, pulmonary hypertension, breast cancer, chronic back pain, peripheral neuropathy and GE reflux. PAST SURGICAL HISTORY Right breast lumpectomy. FAMILY HISTORY Former smoker. No history of alcohol abuse. ALLERGIES NO KNOWN DRUG ALLERGIES. HOME MEDICATIONS: Brovana nebs twice a day, Lipitor 20 mg daily, albuterol inhalation, metoprolol 50 mg p.o. twice a day, Protonix 40 mg daily, Lexapro 10 mg daily, Flovent twice a day, amiodarone 200 mg daily, aspirin 81 mg daily, Singulair 10 mg p.o. daily at bedtime, and Revatio 20 mg p.o. twice a day. REVIEW OF SYSTEMS As per HPI. Rest of 12-point review of systems reviewed negative. PHYSICAL EXAMINATION GENERAL: Comfortable in bed, in no acute distress. VITAL SIGNS: Temperature 98.7, heart rate is 69 per minute, respiratory 16 per minute, blood pressure 130/80, and pulse ox is 95% room air. HEENT: Pallor positive. NECK: No lymphadenopathy. CHEST: Air entry present equal bilaterally. No added sound. CARDIOVASCULAR: S1 and S2 normal. No murmur. No gallop. ABDOMEN: Soft, nontender. No hepatosplenomegaly. EXTREMITIES: No edema. Nontender. Peripheral pulsation is present. Unable to lift right leg against gravity. Right leg slightly internal rotated. ADA ACCOMMODATION CONSULTANT: Alert, oriented x3. No focal sensory motor deficit. LABORATORY DATA: CT spine: As per HPI. Doppler lower extremity; negative for DVT. EKG: Normal sinus rhythm. T-wave inversion and precordial leads, right bundle-branch block. White count 5.7, hemoglobin 10.3, hematocrit 31.9, platelet 268, granulocyte 71%, lymphocyte 11%, monocyte 15%. Sodium 137, potassium 3.8, creatinine 0.8. ASSESSMENT AND PLAN: 1. Breast cancer. 2. T5 compression fracture. 3. Chronic obstructive pulmonary disease. 4. Congestive heart failure. 5. Chronic back pain. 6. r/o right hip fracture. PLAN: She will be admitted to the hospital. Pain management with morphine every 4 hours p.r.n. 2 mg.IV for severe pain. MS contin 15 mg PO BID. Oxycodone 5 mg Q 4hr prn for breakthrough pain. We will continue Lexapro 40 mg daily, Lidoderm patch at T5 daily. aspirin and amiodarone daily, metoprolol 50 mg p.o. twice a day, Lyrica 50 mg p.o. daily at bedtime. Discussed with Dr. Dallas Denise for possible kyphoplasty , . Discussed with Dr. Viveros, consult requested for neurology. No evidence of cord compression. CT Right Hip, pelvis ordered stat. Lovenox 30 mg SQ for DVT prophylaxis. Discussed with patient at length. She sees lo Moffett. he does not come to [facility]. If need surgical intervention she would like to see him as out patient. Lizbet Phillips MD MTDD
[2018-07-28] MEDS: Arformoterol 15 mcg/2 ml Inh Sol IH SCH (19:46)
[2018-07-28] MEDS: oxyCODONE 10 mg Immediate Release Tab PO PRN (20:44)
--- NOTE | 2018-07-28 22:49 | US ---
HISTORY: Leg pain and swelling. Evaluate for DVT PHYSICIAN(S): Dallas Denise MD. TECHNIQUE: Duplex sonography and color-flow Doppler with graded compression were used to evaluate the deep venous systems of both lower extremities. FINDINGS: The visualized deep venous systems of both lower extremities are sonographically normal and compressible. Normal wave forms and augmentation are seen. There is no sonographic evidence for deep venous thrombosis in the visualized segments of both lower extremities. IMPRESSION: No sonographic evidence for deep venous thrombosis in the visualized segments of both lower extremities.
[2018-07-28] MEDS: Morphine 15 mg SR Tab PO SCH (23:00)
[2018-07-29] MEDS: oxyCODONE 10 mg Immediate Release Tab PO PRN ×2 (05:45→20:29)
[2018-07-29] MEDS: Pantoprazole 40 mg EC Tab PO SCH (05:45)
[2018-07-29] MEDS: Arformoterol 15 mcg/2 ml Inh Sol IH SCH ×2 (07:41→20:12)
[2018-07-29] MEDS: Enoxaparin 30 mg Syringe SC SCH (10:33)
[2018-07-29] MEDS: Morphine 15 mg SR Tab PO SCH ×2 (10:34→22:07)
[2018-07-29] MEDS: Docusate-Senna 50 mg-8.6 mg Tab PO SCH ×2 (10:36→18:05)
[2018-07-29] MEDS: Lidocaine 5% Patch TD SCH (10:37)
--- NOTE | 2018-07-29 10:52 | CT ---
Date of service: 07/28/2018 PROCEDURE: CT Pelvis without contrast HISTORY: fall COMPARISON: PET-CT dated 11/14/2017. TECHNIQUE: Contiguous axial images of the pelvis . No intravenous or oral contrast given. Coronal and sagittal reformats generated. Radiation dose: Total exam DLP = 520.76 mGy-cm. This CT exam was performed using one or more of the following dose reduction techniques: Automated exposure control, adjustment of the mA and/or kV according to patient size, and/or use of iterative reconstruction technique. FINDINGS: BLADDER: Air within the bladder wall. REPRODUCTIVE ORGANS: Prior hysterectomy. VISUALIZED BOWEL: Colonic diverticulosis. PERITONEUM: Unremarkable, as visualized. No free fluid. No free air. LYMPH NODES: Unremarkable. No enlarged lymph nodes. BONES: Spinal and pelvic degenerative changes. No fracture or focal lesion. VASCULATURE: Aortic atherosclerotic calcification or mural plaque present. OTHER FINDINGS: None. IMPRESSION: No demonstrated fracture or dislocation. Emphysematous cystitis.
[2018-07-29] MEDS: Albuterol 0.083% Inhal Sol (2.5 mg/3 mL) UD IH PRN (15:26)
[2018-07-29] MEDS: Mometasone 220 mcg/puff-14 puff Inh IH SCH (18:05)
--- NOTE | 2018-07-29 23:26 | CARD ---
APPROVED REPORT Date of service: 07/28/2018 EKG Measurement Heart [id number] 134P [id number] <Conclusion> Normal sinus rhythm Right bundle branch block Left anterior fascicular block Bifascicular block Abnormal ECG
[2018-07-30] MEDS: Pantoprazole 40 mg EC Tab PO SCH (05:49)
[2018-07-30] MEDS: Albuterol 0.083% Inhal Sol (2.5 mg/3 mL) UD IH PRN ×2 (07:35→11:24)
[2018-07-30] MEDS: Arformoterol 15 mcg/2 ml Inh Sol IH SCH ×2 (07:35→19:33)
[2018-07-30] MEDS: Docusate-Senna 50 mg-8.6 mg Tab PO SCH ×2 (09:24→18:00)
[2018-07-30] MEDS: Morphine 15 mg SR Tab PO SCH ×2 (09:26→21:36)
[2018-07-30] MEDS: Enoxaparin 30 mg Syringe SC SCH ×2 (09:28→09:29)
[2018-07-30] MEDS: Lidocaine 5% Patch TD SCH (09:31)
--- NOTE | 2018-07-30 13:20 | CP.PCM.PN ---
<Baltazar Dawson - Last Filed: 07/30/18 12:55> Subjective - Date & Time of Evaluation Date of Evaluation: 07/29/18 Time of Evaluation: 09:00 - Subjective Subjective: PGY-2 medicine progress note for Dr Wilcox No acute events noted overnight. Patient complained of mid-thoracic back pain most prominent on her left side. She said moving around in her bed exacerbates the pain. She otherwise denied chest pain, n/v/d/c, f/c, shortness of breath and bleeding. Objective - Vital Signs/Intake and Output Vital Signs (last 24 hours): Temp Pulse Resp BP Pulse Ox 97.9 F 70 18 127/71 98 07/30/18 06:00 07/30/18 09:22 07/30/18 06:00 07/30/18 09:22 07/30/18 06:00 Intake and Output: 07/30/18 07/30/18 06:59 18:59 Intake Total 740 Balance 740 - Medications Medications: Current Medications Albuterol Sulfate (Albuterol 0.083% Inhal Talia (2.5 Mg/3 Ml) Ud) 2.5 mg IH [id number] PRN PRN Reason: Shortness of Breath Last Admin: 07/30/18 11:24 Dose: 2.5 mg Amiodarone HCl (Cordarone) 200 mg PO DAILY [facility] Last Admin: 07/30/18 09:25 Dose: 200 mg Arformoterol Tartrate (Brovana) 15 mcg IH [id number] [facility] Last Admin: 07/30/18 07:35 Dose: 15 mcg Aspirin (Aspirin Chewable) 81 mg PO DAILY [facility] Last Admin: 07/30/18 09:26 Dose: 81 mg Atorvastatin Calcium (Lipitor) 20 mg PO DIN [facility] Last Admin: 07/29/18 18:04 Dose: 20 mg Enoxaparin Sodium (Lovenox) 30 mg SC DAILY [facility]; Protocol Last Admin: 07/30/18 09:29 Dose: 30 mg Escitalopram Oxalate (Lexapro) 40 mg PO DAILY [facility] Last Admin: 07/30/18 09:24 Dose: 40 mg Famotidine (Pepcid) 20 mg PO 1000,2200 [facility] Last Admin: 07/30/18 09:22 Dose: 20 mg Hydrochlorothiazide (Hydrodiuril) 25 mg PO DAILY [facility] Last Admin: 07/30/18 09:22 Dose: 25 mg Lidocaine (Lidoderm) 1 ea TD DAILY [facility] Last Admin: 07/30/18 09:31 Dose: 1 ea Metoprolol Tartrate (Lopressor) 50 mg PO BID [facility] Last Admin: 07/30/18 09:22 Dose: 50 mg Mometasone Furoate (Asmanex Twisthaler 220 Mcg) 1 puff IH QPM [facility] Last Admin: 07/29/18 18:05 Dose: 1 puff Montelukast Sodium (Singulair) 10 mg PO HS [facility] Last Admin: 07/29/18 22:07 Dose: 10 mg Morphine Sulfate (Morphine Extended Release Tab) 15 mg PO Q12 [facility] Last Admin: 07/30/18 09:26 Dose: 15 mg Oxycodone HCl (Oxycodone Immediate Release Tab) 10 mg PO Q6H PRN PRN Reason: Pain, moderate (4-7) Last Admin: 07/29/18 20:29 Dose: 10 mg Pantoprazole Sodium (Protonix Ec Tab) 40 mg PO 0600 [facility] Last Admin: 07/30/18 05:49 Dose: 40 mg Pregabalin (Lyrica) 50 mg PO HS [facility] Last Admin: 07/29/18 22:06 Dose: 50 mg Senna/Docusate Sodium (Senokot S 50 Mg-8.6 Mg) 1 tab PO BID [facility] Last Admin: 07/30/18 09:24 Dose: 1 tab - Labs Labs: 07/28/18 11:45 07/28/18 11:45 PT 12.8 SECONDS (9.4-12.5) H 07/28/18 11:45 INR 1.11 07/28/18 11:45 APTT 30.1 Seconds (25.1-36.5) 07/28/18 11:45 - Constitutional Appears: Well, Non-toxic, No Acute Distress - Head Exam Head Exam: ATRAUMATIC, NORMAL INSPECTION - Eye Exam Eye Exam: EOMI, Normal appearance, PERRL. absent: Scleral icterus - ENT Exam ENT Exam: Mucous Membranes Moist - Neck Exam Neck Exam: Full ROM, Normal Inspection. absent: Tenderness - Respiratory Exam Respiratory Exam: Clear to Ausculation Bilateral, NORMAL BREATHING PATTERN. absent: Rales, Rhonchi, Wheezes - Cardiovascular Exam Cardiovascular Exam: Tachycardia, REGULAR RHYTHM, +S1, +S2. absent: JVD - GI/Abdominal Exam GI & Abdominal Exam: Soft, Normal Bowel Sounds. absent: Tenderness - Extremities Exam Extremities Exam: Full ROM, Normal Capillary Refill, Normal Inspection - Neurological Exam Neurological Exam: Alert, Awake, Oriented x3 - Psychiatric Exam Psychiatric exam: Normal Affect, Normal Mood - Skin Skin Exam: Dry, Intact, Normal Color, Warm Assessment and Plan - Assessment and Plan (Free Text) Plan: Mrs Ramirez is a 78 year old female with a PMHx of CABG, COPD, pulmonary HTN, breast cancer, chronic back pain, peripheral neuropathy, GERD who presented to our ER for back pain - a CT showed compression fracture of T5 vertebra. Compression Fracture T5 Vertebra -Lidoderm patch at T5 daily -morphine 15mg po q12h -oxycodone immediate release 10mg po q6h prn -Likely kyphoplasy 07/[address] George Gatica -See's ortho Dr Krishnan however this Dr does not come to [facility] -PT/OT eval and treat Imaging: -CT pelvis w/o contrast 07/28: * No demonstrated fracture or dislocation. * Emphysematous cystitis. -CT lumbar spine w/o contrast 07/28: * There are no lytic or sclerotic lesions. There are no compression fractures. There is curvature of the spine convex to the left with a Ford angle of 22 degrees -CT thoracic spine w/o contrast 07/28: * New mild compression fracture of T5. No evidence of metastatic disease -LE Ultrasound 07/28: * No sonographic evidence for deep venous thrombosis in the visualized segments of both lower extremities. Emphysematous cystitis -no urinary symptoms -f/u UA and if warranted we'll get a urine culture CAD -with hx of CABG -aspirin 81mg po qd -metoprolol tartrate 50mg po bid -lipitor 20mg po qhs Peripheral Neuropathy -Lyrica 50mg po qhs -Tramadol 50mg po q8h prn for acute onset of pain -Neuro consulted, Dr Flavio Viveros * recommends the above meds lyrica and tramadol COPD -breathing comfortably on room air -albuterol 2.5mg ih q4h prn for shortness of breath -arformoterol 15mcg ih q12h teresa -mometasone 1 puff ih qhs -montelukast 10mg po qhs Breast Cancer -on chemotherapy -mild peripheral neuropathy possibly related to chemotherapy Hx of Anxiety -continue home med lexapro 40mg po qd HTN -BP well controlled -HCTZ 25mg po qd GERD -pepcid 20mg po bid -protonix 40mg po qd PPX -lovenox 30mg sc qd -protonix 40mg po qd -HHD Dispo: TCU eval <Teodoro Wilcoxa - Last Filed: 07/30/18 13:54> Objective - Vital Signs/Intake and Output Vital Signs (last 24 hours): Temp Pulse Resp BP Pulse Ox 97.9 F 70 18 127/71 98 07/30/18 06:00 07/30/18 09:22 07/30/18 06:00 07/30/18 09:22 07/30/18 06:00 Intake and Output: 07/30/18 07/30/18 06:59 18:59 Intake Total 740 Balance 740 - Medications Medications: Current Medications Albuterol Sulfate (Albuterol 0.083% Inhal Talia (2.5 Mg/3 Ml) Ud) 2.5 mg IH [id number] PRN PRN Reason: Shortness of Breath Last Admin: 07/30/18 11:24 Dose: 2.5 mg Amiodarone HCl (Cordarone) 200 mg PO DAILY [facility] Last Admin: 07/30/18 09:25 Dose: 200 mg Arformoterol Tartrate (Brovana) 15 mcg IH [id number] [facility] Last Admin: 07/30/18 07:35 Dose: 15 mcg Aspirin (Aspirin Chewable) 81 mg PO DAILY [facility] Last Admin: 07/30/18 09:26 Dose: 81 mg Atorvastatin Calcium (Lipitor) 20 mg PO DIN [facility] Last Admin: 07/29/18 18:04 Dose: 20 mg Enoxaparin Sodium (Lovenox) 30 mg SC DAILY [facility]; Protocol Last Admin: 07/30/18 09:29 Dose: 30 mg Escitalopram Oxalate (Lexapro) 40 mg PO DAILY [facility] Last Admin: 07/30/18 09:24 Dose: 40 mg Famotidine (Pepcid) 20 mg PO 1000,2200 [facility] Last Admin: 07/30/18 09:22 Dose: 20 mg Hydrochlorothiazide (Hydrodiuril) 25 mg PO DAILY [facility] Last Admin: 07/30/18 09:22 Dose: 25 mg Lidocaine (Lidoderm) 1 ea TD DAILY [facility] Last Admin: 07/30/18 09:31 Dose: 1 ea Metoprolol Tartrate (Lopressor) 50 mg PO BID [facility] Last Admin: 07/30/18 09:22 Dose: 50 mg Mometasone Furoate (Asmanex Twisthaler 220 Mcg) 1 puff IH QPM [facility] Last Admin: 07/29/18 18:05 Dose: 1 puff Montelukast Sodium (Singulair) 10 mg PO HS [facility] Last Admin: 07/29/18 22:07 Dose: 10 mg Morphine Sulfate (Morphine Extended Release Tab) 15 mg PO Q12 [facility] Last Admin: 07/30/18 09:26 Dose: 15 mg Oxycodone HCl (Oxycodone Immediate Release Tab) 10 mg PO Q6H PRN PRN Reason: Pain, moderate (4-7) Last Admin: 07/29/18 20:29 Dose: 10 mg Pantoprazole Sodium (Protonix Ec Tab) 40 mg PO 0600 [facility] Last Admin: 07/30/18 05:49 Dose: 40 mg Pregabalin (Lyrica) 50 mg PO HS [facility] Last Admin: 07/29/18 22:06 Dose: 50 mg Senna/Docusate Sodium (Senokot S 50 Mg-8.6 Mg) 1 tab PO BID [facility] Last Admin: 07/30/18 09:24 Dose: 1 tab - Labs Labs: 07/28/18 11:45 07/28/18 11:45 PT 12.8 SECONDS (9.4-12.5) H 07/28/18 11:45 INR 1.11 07/28/18 11:45 APTT 30.1 Seconds (25.1-36.5) 07/28/18 11:45 Attending/Attestation - Attestation I have personally seen and examined this patient.: Yes I have fully participated in the care of the patient.: Yes I have reviewed all pertinent clinical information, including history, physical exam and plan: Yes Notes (Text): 07/30/18 13:39 attending note for 07/29/18. covering Dr. Phillips. Patient seen and examined with resident on 07/29/18. Patient is alert and awake. Complaining of some numbness in the right leg. Able to move both legs. Complaining of back discomfort. Denies any Urinary or bowel incontinence. denies any chest pain, shortness of breath. Denies any nausea,vomiting. Tolerating diet well. Patient is a 78 year old female with a PMHx of CABG, COPD, pulmonary HTN, breast cancer, chronic back pain, peripheral neuropathy, GERD who presented to is admitted for back pain . 1. CT showed compression fracture of T5 vertebra; PMD discussed with Dr. Dallas Denise. Plan for kyphoplasty on Tuesday. We'll get physical therapy evaluation. 2. Back pain; continue Lidoderm patch, morphine and oxycodone when necessary. 3. History of breast cancer; follow-up with Dr. phillips. 4. history of coronary artery disease; continue aspirin. Patient is clinically stable. 5. history of COPD; continue DuoNeb when necessary. stable respiratory status. Chest x-ray is normal. 6. Neuropathy; started on Lyrica. Neurology evaluation appreciated. Continue DVT and GI prophylaxis. upon discharge the patient will follow-up with PMD Dr. phillips. The diagnosis, treatment plan discussed with patient in detail. 07/30/18 13:52
--- NOTE | 2018-07-30 13:29 | CP.PCM.PN ---
<Baltazar Dawson - Last Filed: 07/30/18 13:23> Subjective - Date & Time of Evaluation Date of Evaluation: 07/30/18 Time of Evaluation: 11:00 - Subjective Subjective: PGY-2 medicine progress note for Dr Wilcox No acute events noted overnight. Patient aware of likely kyphoplasty tomorrow with Dr George Gatica - she inquired about anesthesia. Complained of left sided thoracic back pain and stated the pain meds help. Otherwise doing well - no shortness of breath, no f/c, no GI issues, no urinary complaints. Objective - Vital Signs/Intake and Output Vital Signs (last 24 hours): Temp Pulse Resp BP Pulse Ox 97.9 F 70 18 127/71 98 07/30/18 06:00 07/30/18 09:22 07/30/18 06:00 07/30/18 09:22 07/30/18 06:00 Intake and Output: 07/30/18 07/30/18 06:59 18:59 Intake Total 740 Balance 740 - Medications Medications: Current Medications Albuterol Sulfate (Albuterol 0.083% Inhal Talia (2.5 Mg/3 Ml) Ud) 2.5 mg IH [id number] PRN PRN Reason: Shortness of Breath Last Admin: 07/30/18 11:24 Dose: 2.5 mg Amiodarone HCl (Cordarone) 200 mg PO DAILY [facility] Last Admin: 07/30/18 09:25 Dose: 200 mg Arformoterol Tartrate (Brovana) 15 mcg IH [id number] [facility] Last Admin: 07/30/18 07:35 Dose: 15 mcg Aspirin (Aspirin Chewable) 81 mg PO DAILY [facility] Last Admin: 07/30/18 09:26 Dose: 81 mg Atorvastatin Calcium (Lipitor) 20 mg PO DIN [facility] Last Admin: 07/29/18 18:04 Dose: 20 mg Enoxaparin Sodium (Lovenox) 30 mg SC DAILY [facility]; Protocol Last Admin: 07/30/18 09:29 Dose: 30 mg Escitalopram Oxalate (Lexapro) 40 mg PO DAILY [facility] Last Admin: 07/30/18 09:24 Dose: 40 mg Famotidine (Pepcid) 20 mg PO 1000,2200 [facility] Last Admin: 07/30/18 09:22 Dose: 20 mg Hydrochlorothiazide (Hydrodiuril) 25 mg PO DAILY [facility] Last Admin: 07/30/18 09:22 Dose: 25 mg Lidocaine (Lidoderm) 1 ea TD DAILY [facility] Last Admin: 07/30/18 09:31 Dose: 1 ea Metoprolol Tartrate (Lopressor) 50 mg PO BID [facility] Last Admin: 07/30/18 09:22 Dose: 50 mg Mometasone Furoate (Asmanex Twisthaler 220 Mcg) 1 puff IH QPM [facility] Last Admin: 07/29/18 18:05 Dose: 1 puff Montelukast Sodium (Singulair) 10 mg PO HS [facility] Last Admin: 07/29/18 22:07 Dose: 10 mg Morphine Sulfate (Morphine Extended Release Tab) 15 mg PO Q12 [facility] Last Admin: 07/30/18 09:26 Dose: 15 mg Oxycodone HCl (Oxycodone Immediate Release Tab) 10 mg PO Q6H PRN PRN Reason: Pain, moderate (4-7) Last Admin: 07/29/18 20:29 Dose: 10 mg Pantoprazole Sodium (Protonix Ec Tab) 40 mg PO 0600 [facility] Last Admin: 07/30/18 05:49 Dose: 40 mg Pregabalin (Lyrica) 50 mg PO HS [facility] Last Admin: 07/29/18 22:06 Dose: 50 mg Senna/Docusate Sodium (Senokot S 50 Mg-8.6 Mg) 1 tab PO BID [facility] Last Admin: 07/30/18 09:24 Dose: 1 tab - Labs Labs: 07/28/18 11:45 07/28/18 11:45 PT 12.8 SECONDS (9.4-12.5) H 07/28/18 11:45 INR 1.11 07/28/18 11:45 APTT 30.1 Seconds (25.1-36.5) 07/28/18 11:45 - Additional Findings Additional findings: - Constitutional Appears: Well, Non-toxic, No Acute Distress - Head Exam Head Exam: ATRAUMATIC, NORMAL INSPECTION - Eye Exam Eye Exam: EOMI, Normal appearance, PERRL. absent: Scleral icterus - ENT Exam ENT Exam: Mucous Membranes Moist - Neck Exam Neck Exam: Full ROM, Normal Inspection. absent: Tenderness - Respiratory Exam Respiratory Exam: Clear to Ausculation Bilateral, NORMAL BREATHING PATTERN. absent: Rales, Rhonchi, Wheezes - Cardiovascular Exam Cardiovascular Exam: Normal Rate, REGULAR RHYTHM, +S1, +S2. absent: JVD - GI/Abdominal Exam GI & Abdominal Exam: Soft, Normal Bowel Sounds. absent: Tenderness - Extremities Exam Extremities Exam: Full ROM, Normal Capillary Refill, Normal Inspection - Neurological Exam Neurological Exam: Alert, Awake, Oriented x3 - Psychiatric Exam Psychiatric exam: Normal Affect, Normal Mood - Skin Skin Exam: Dry, Intact, Normal Color, Warm Assessment and Plan - Assessment and Plan (Free Text) Plan: Mrs Ramirez is a 78 year old female with a PMHx of CABG, COPD, pulmonary HTN, breast cancer, chronic back pain, peripheral neuropathy, GERD who presented to our ER for back pain - a CT showed compression fracture of T5 vertebra. Compression Fracture T5 Vertebra -Lidoderm patch at T5 daily -morphine 15mg po q12h -oxycodone immediate release 10mg po q6h prn -Likely kyphoplasty 07/[address] George Gatica -See's ortho Dr Krishnan however this Dr does not come to [facility] -PT/OT eval and treat Imaging: -CT pelvis w/o contrast 07/28: * No demonstrated fracture or dislocation. * Emphysematous cystitis. -CT lumbar spine w/o contrast 07/28: * There are no lytic or sclerotic lesions. There are no compression fractures. There is curvature of the spine convex to the left with a Ford angle of 22 degrees -CT thoracic spine w/o contrast 07/28: * New mild compression fracture of T5. No evidence of metastatic disease -LE Ultrasound 07/28: * No sonographic evidence for deep venous thrombosis in the visualized segments of both lower extremities. Emphysematous cystitis -no urinary symptoms -f/u UA and if warranted we'll get a urine culture CAD -with hx of CABG -aspirin 81mg po qd -metoprolol tartrate 50mg po bid -lipitor 20mg po qhs Peripheral Neuropathy -Lyrica 50mg po qhs -Tramadol 50mg po q8h prn for acute onset of pain -Neuro consulted, Dr Flavio Viveros * recommends the above meds lyrica and tramadol COPD -breathing comfortably on room air -albuterol 2.5mg ih q4h prn for shortness of breath -arformoterol 15mcg ih q12h teresa -mometasone 1 puff ih qhs -montelukast 10mg po qhs Breast Cancer -on chemotherapy -mild peripheral neuropathy possibly related to chemotherapy Hx of Anxiety -continue home med lexapro 40mg po qd HTN -BP well controlled -HCTZ 25mg po qd GERD -pepcid 20mg po bid -protonix 40mg po qd PPX -lovenox 30mg sc qd -protonix 40mg po qd -HHD Dispo: TCU [facility]. Kyphoplasty 07/31. Seen and discussed with Dr Wilcox. <Kade Wilcox - Last Filed: 07/30/18 13:56> Objective - Vital Signs/Intake and Output Vital Signs (last 24 hours): Temp Pulse Resp BP Pulse Ox 97.9 F 70 18 127/71 98 07/30/18 06:00 07/30/18 09:22 07/30/18 06:00 07/30/18 09:22 07/30/18 06:00 Intake and Output: 07/30/18 07/30/18 06:59 18:59 Intake Total 740 Balance 740 - Medications Medications: Current Medications Albuterol Sulfate (Albuterol 0.083% Inhal Talia (2.5 Mg/3 Ml) Ud) 2.5 mg IH [id number] PRN PRN Reason: Shortness of Breath Last Admin: 07/30/18 11:24 Dose: 2.5 mg Amiodarone HCl (Cordarone) 200 mg PO DAILY [facility] Last Admin: 07/30/18 09:25 Dose: 200 mg Arformoterol Tartrate (Brovana) 15 mcg IH [id number] [facility] Last Admin: 07/30/18 07:35 Dose: 15 mcg Aspirin (Aspirin Chewable) 81 mg PO DAILY [facility] Last Admin: 07/30/18 09:26 Dose: 81 mg Atorvastatin Calcium (Lipitor) 20 mg PO DIN [facility] Last Admin: 07/29/18 18:04 Dose: 20 mg Enoxaparin Sodium (Lovenox) 30 mg SC DAILY [facility]; Protocol Last Admin: 07/30/18 09:29 Dose: 30 mg Escitalopram Oxalate (Lexapro) 40 mg PO DAILY [facility] Last Admin: 07/30/18 09:24 Dose: 40 mg Famotidine (Pepcid) 20 mg PO 1000,2200 [facility] Last Admin: 07/30/18 09:22 Dose: 20 mg Hydrochlorothiazide (Hydrodiuril) 25 mg PO DAILY [facility] Last Admin: 07/30/18 09:22 Dose: 25 mg Lidocaine (Lidoderm) 1 ea TD DAILY [facility] Last Admin: 07/30/18 09:31 Dose: 1 ea Metoprolol Tartrate (Lopressor) 50 mg PO BID [facility] Last Admin: 07/30/18 09:22 Dose: 50 mg Mometasone Furoate (Asmanex Twisthaler 220 Mcg) 1 puff IH QPM [facility] Last Admin: 07/29/18 18:05 Dose: 1 puff Montelukast Sodium (Singulair) 10 mg PO HS [facility] Last Admin: 07/29/18 22:07 Dose: 10 mg Morphine Sulfate (Morphine Extended Release Tab) 15 mg PO Q12 [facility] Last Admin: 07/30/18 09:26 Dose: 15 mg Oxycodone HCl (Oxycodone Immediate Release Tab) 10 mg PO Q6H PRN PRN Reason: Pain, moderate (4-7) Last Admin: 07/29/18 20:29 Dose: 10 mg Pantoprazole Sodium (Protonix Ec Tab) 40 mg PO 0600 [facility] Last Admin: 07/30/18 05:49 Dose: 40 mg Pregabalin (Lyrica) 50 mg PO HS [facility] Last Admin: 07/29/18 22:06 Dose: 50 mg Senna/Docusate Sodium (Senokot S 50 Mg-8.6 Mg) 1 tab PO BID [facility] Last Admin: 07/30/18 09:24 Dose: 1 tab - Labs Labs: 07/28/18 11:45 07/28/18 11:45 PT 12.8 SECONDS (9.4-12.5) H 07/28/18 11:45 INR 1.11 07/28/18 11:45 APTT 30.1 Seconds (25.1-36.5) 07/28/18 11:45 Attending/Attestation - Attestation I have personally seen and examined this patient.: Yes I have fully participated in the care of the patient.: Yes I have reviewed all pertinent clinical information, including history, physical exam and plan: Yes Notes (Text): 07/30/18 13:54 attending note/covering Dr. Phillips. Patient seen and examined with resident. Patient is alert and awake. Complaining of some numbness in the right leg. Able to move both legs. Complaining of back discomfort. Denies any Urinary or bowel incontinence. denies any chest pain, shortness of breath. Denies any nausea,vomiting. Tolerating diet well. Patient is a 78 year old female with a PMHx of CABG, COPD, pulmonary HTN, breast cancer, chronic back pain, peripheral neuropathy, GERD who presented to is admitted for back pain . 1. CT showed compression fracture of T5 vertebra; PMD discussed with IR. Plan for kyphoplasty on Tuesday. CT hip is negative. 2. Back pain; continue Lidoderm patch, morphine and oxycodone when necessary. 3. History of breast cancer; follow-up with Dr. phillips. 4. history of coronary artery disease; continue aspirin. Patient is clinically stable. 5. history of COPD; continue DuoNeb when necessary. stable respiratory status. Chest x-ray is normal. 6. Neuropathy; started on Lyrica. Neurology evaluation appreciated. Continue DVT and GI prophylaxis. physical therapy evaluation appreciated. TCU recommended. upon discharge the patient will follow-up with PMD Dr. phillips. The diagnosis, treatment plan discussed with patient in detail.
[2018-07-30] MEDS: Mometasone 220 mcg/puff-14 puff Inh IH SCH ×2 (17:58→18:04)
[2018-07-30 21:54] VITALS: RESP 18
[2018-07-31] MEDS: Pantoprazole 40 mg EC Tab PO SCH (05:11)
[2018-07-31 06:46] LABS: BASO # 0.04 K/mm3 (0.0-2.0); BASO % 0.5 % (0.0-3.0); EOS % 0.1 % (1.5-5.0); GRAN % 79.5 % (50.0-68.0); LYMPH # 0.7 (1.2-3.4); LYMPH % 9.5 % (22.0-35.0); MEAN CELL VOLUME 95.9 fl (80.0-105.0); MEAN CORPUSCULAR HEMOGLOBIN 30.4 pg (25.0-35.0); MEAN CORPUSCULAR HGB CONC 31.7 g/dl (31.0-37.0); MEAN PLATELET VOLUME 9.2 fl (7.0-11.0); MONO # 0.8 (0.1-0.6); MONO % 10.4 % (1.0-6.0); RBC 2.96 10^6/uL (3.5-6.1); RED CELL DISTRIBUTION WIDTH 19.5 % (11.5-14.5); WHITE BLOOD COUNT 7.6 10^3/uL (4.5-11.0)
[2018-07-31 07:26] LABS: ALB/GLOB RATIO 1.1 (1.1-1.8); ALBUMIN 2.7 g/dL (3.0-4.8); ALT/SGPT 32 U/L (7-56); AST/SGOT 28 U/L (14-36); BLOOD UREA NITROGEN 15 mg/dL (7-21); CALCIUM 8.5 mg/dL (8.4-10.5); GFR NON-AFRICAN AMERICAN > 60
[2018-07-31] MEDS: Arformoterol 15 mcg/2 ml Inh Sol IH SCH (07:48)
[2018-07-31] MEDS: Albuterol 0.083% Inhal Sol (2.5 mg/3 mL) UD IH PRN (07:48)
[2018-07-31 09:11] VITALS: BP 112/66; PULSE 69; TEMP 98.6; O2SAT 93
[2018-07-31] MEDS: Enoxaparin 30 mg Syringe SC SCH (09:37)
[2018-07-31] MEDS: Docusate-Senna 50 mg-8.6 mg Tab PO SCH (09:39)
[2018-07-31] MEDS: Morphine 15 mg SR Tab PO SCH (09:39)
[2018-07-31] MEDS: Lidocaine 5% Patch TD SCH (09:40)
[2018-07-31] MEDS ORDERED: Potassium Chloride 20 mEq ER Tab PO ONE (10:00)
[2018-07-31] MEDS ORDERED: Albuterol-Ipratrop 3 mg / 0.5 (3 ml) UD IH SCH (14:00)
== END 2018-07-31 14:22 | DRG 544 ==
LOC: ED 10:39 → ERH 13:03 → 5RNO 16:42
PROVIDERS: ADMIT Internal Medicine Medical Oncology; ATTEND Internal Medicine Medical Oncology
DX: M48.54XA Collapsed vertebra, not elsewhere classified, thoracic region, initial encounter for fracture (principal); C50.911 Malignant neoplasm of unspecified site of right female breast; I11.0 Hypertensive heart disease with heart failure; I50.9 Heart failure, unspecified; I45.10 Unspecified right bundle-branch block; G62.0 Drug-induced polyneuropathy; T45.1X5A Adverse effect of antineoplastic and immunosuppressive drugs, initial encounter; I25.10 Atherosclerotic heart disease of native coronary artery without angina pectoris; I27.20 Pulmonary hypertension, unspecified; N30.80 Other cystitis without hematuria; M54.9 Dorsalgia, unspecified; J44.9 Chronic obstructive pulmonary disease, unspecified; K21.9 Gastro-esophageal reflux disease without esophagitis; Z79.51 Long term (current) use of inhaled steroids; Z79.82 Long term (current) use of aspirin; Z95.1 Presence of aortocoronary bypass graft; F41.9 Anxiety disorder, unspecified

== ENCOUNTER 2018-07-31 14:30 | Inpatient (IN) | payer OTHER, MEDICAID ==
[2018-07-31 14:44] VITALS: BMI 25.0
[2018-07-31] MEDS ORDERED: oxyCODONE 10 mg Immediate Release Tab PO PRN (14:44)
[2018-07-31] MEDS ORDERED: Albuterol 0.083% Inhal Sol (2.5 mg/3 mL) UD IH PRN (14:44)
[2018-07-31] MEDS ORDERED: Albuterol-Ipratrop 3 mg / 0.5 (3 ml) UD IH PRN (15:12)
[2018-07-31] MEDS: MethylPREDNISolone 40 mg Vial IVP SCH (16:00)
[2018-07-31] MEDS: Mometasone 220 mcg/puff-14 puff Inh IH SCH ×2 (17:13→17:27)
[2018-07-31] MEDS: Docusate-Senna 50 mg-8.6 mg Tab PO SCH (17:16)
[2018-07-31] MEDS: Albuterol-Ipratrop 3 mg / 0.5 (3 ml) UD IH SCH (20:46)
[2018-07-31] MEDS: Arformoterol 15 mcg/2 ml Inh Sol IH SCH (20:47)
[2018-07-31] MEDS: Morphine 15 mg SR Tab PO SCH (21:25)
[2018-07-31] MEDS ORDERED: Influenza Vaccine 60 mcg/0.5 mL SYR (4YR UP) IM ONE (21:46)
[2018-07-31] MEDS ORDERED: Pneumococcal 23-Valent Vaccine IM ONE (21:46)
[2018-08-01] MEDS: Albuterol-Ipratrop 3 mg / 0.5 (3 ml) UD IH SCH ×4 (01:54→21:30)
[2018-08-01] MEDS: Enoxaparin 30 mg Syringe SC SCH ×2 (05:29→09:22)
[2018-08-01] MEDS: Pantoprazole 40 mg EC Tab PO SCH (05:29)
[2018-08-01 07:08] LABS: BASO # 0.01 K/mm3 (0.0-2.0); BASO % 0.1 % (0.0-3.0); GRAN # 7.68 (1.4-6.5); HEMOGLOBIN 9.5 g/dL (12.0-16.0); LYMPH # 0.8 (1.2-3.4); LYMPH % 8.4 % (22.0-35.0); MEAN CELL VOLUME 94.5 fl (80.0-105.0); MEAN CORPUSCULAR HEMOGLOBIN 30.9 pg (25.0-35.0); MEAN CORPUSCULAR HGB CONC 32.8 g/dl (31.0-37.0); MEAN PLATELET VOLUME 9.5 fl (7.0-11.0); MONO # 0.7 (0.1-0.6); MONO % 7.5 % (1.0-6.0); RBC 3.07 10^6/uL (3.5-6.1); RED CELL DISTRIBUTION WIDTH 19.1 % (11.5-14.5); WHITE BLOOD COUNT 9.2 10^3/uL (4.5-11.0)
[2018-08-01 07:15] LABS: ALB/GLOB RATIO 1.1 (1.1-1.8); ALBUMIN 2.7 g/dL (3.0-4.8); ALT/SGPT 30 U/L (7-56); AST/SGOT 30 U/L (14-36); BLOOD UREA NITROGEN 17 mg/dL (7-21); CALCIUM 8.9 mg/dL (8.4-10.5); GFR NON-AFRICAN AMERICAN > 60
[2018-08-01] MEDS: Arformoterol 15 mcg/2 ml Inh Sol IH SCH ×2 (07:16→21:30)
[2018-08-01] MEDS: Morphine 15 mg SR Tab PO SCH ×2 (09:21→22:01)
[2018-08-01] MEDS: MethylPREDNISolone 40 mg Vial IVP SCH (09:22)
[2018-08-01] MEDS: Lidocaine 5% Patch TD SCH (09:22)
[2018-08-01] MEDS: Docusate-Senna 50 mg-8.6 mg Tab PO SCH ×2 (09:23→17:25)
[2018-08-01] MEDS: Mometasone 220 mcg/puff-14 puff Inh IH SCH (17:24)
--- NOTE | 2018-08-01 18:46 | CON ---
DATE: 08/01/2018 NEUROLOGY CONSULTATION HISTORY OF PRESENT ILLNESS: This is a 78-year-old woman with history of , history of coronary artery disease status post bypass, chronic obstructive pulmonary disease, right breast cancer on chemotherapy, present with low back pain with mid thoracic area to right lumbosacral area, paresthesias down her legs as well as paresthesias to extremities and swollen right leg, symptoms secondary to the T5 compression fracture without any enhancing mass or sciatic lesion, looks like to her worsening back pain has mild underlying peripheral neuropathy for underlying breast cancer chemotherapy is currently here for rehabilitation, kyphoplasty is currently not done yet for T5 compression fracture. She is doing much better moving all extremities equally. She is on Lyrica for neuropathic relief. PAST MEDICAL HISTORY: As above. SOCIAL HISTORY: No illicit drug use, smoking or ETOH abuse. REVIEW OF SYSTEMS: A 14-point review of systems is negative except per the HPI. MEDICATIONS: Reviewed by nurse's reconciliation sheet. ALLERGIES: NO KNOWN DRUG ALLERGIES. LABORATORY DATA: Sodium 134, potassium 3.5, chloride 101, carbon dioxide 28, BUN of 17, creatinine 0.7, random glucose 110. PHYSICAL EXAMINATION: VITAL SIGNS: Temperature 98.2, pulse rate 76, blood pressure 125/74, respiratory rate 18. GENERAL: The patient is up in bed, in no acute distress. HEENT: Atraumatic and normocephalic. PERRLA. Extraocular muscles are intact. NECK: Supple. No JVD. No adenopathy noted. LUNGS: Clear to auscultation. No adventitious sounds. HEART: S1 and S2. Normal rate and rhythm. No murmurs, rubs, or gallops. ABDOMEN: Soft, nontender, and nondistended. Bowel sounds are present. EXTREMITIES: No clubbing. No cyanosis. Peripheral pulses are 2+ felt bilaterally. NEUROLOGIC: The patient is alert and oriented to person, place, and month and year. Speech is fluent without errors. Cranial nerves II through XII are intact. Motor exam; moves all extremities. Toes are downgoing bilaterally. Sensory exam; Decreased light touch and pinprick up to the calves bilaterally. Decreased vibration at the toes. DTRs are 2+ throughout and 1 at both knees and ankles. Coordination: [id number] is intact. No dysmetria noted. Gait is deferred for now. MUSCULOSKELETAL: Mid thoracic lumbosacral tightness. IMPRESSION AND PLAN: 1. Mid to thoracic low back pain secondary to mild T5 compression fracture. She has underlying mild peripheral neuropathy, underlying breast cancer status post chemotherapy. At this time, we recommend TCU for rehabilitation intensive lumbosacral stretches, therapeutic exercise, myofascial pain release, TENS unit, ultrasound therapy. 2. Lidoderm patch to the area of pain. 3. Continue Lyrica 50 mg by mouth b.i.d. for neuropathic relief and continue with she does not improve with therapy. Thank you for this consult. Flavio Viveros MD
[2018-08-02] MEDS: Albuterol-Ipratrop 3 mg / 0.5 (3 ml) UD IH SCH ×3 (02:32→21:20)
[2018-08-02] MEDS: Pantoprazole 40 mg EC Tab PO SCH (05:46)
[2018-08-02] MEDS: Arformoterol 15 mcg/2 ml Inh Sol IH SCH ×2 (07:02→21:20)
[2018-08-02] MEDS: Docusate-Senna 50 mg-8.6 mg Tab PO SCH (17:36)
[2018-08-02] MEDS: Mometasone 220 mcg/puff-14 puff Inh IH SCH (17:38)
[2018-08-02] MEDS: Morphine 15 mg SR Tab PO SCH (21:25)
[2018-08-03] MEDS: Albuterol-Ipratrop 3 mg / 0.5 (3 ml) UD IH SCH ×4 (01:15→21:49)
--- NOTE | 2018-08-03 01:34 | CON ---
DATE OF CONSULTATION: 08/02/2018 TIME OF CONSULTATION: 7:00 p.m. CHIEF COMPLAINT/HISTORY OF PRESENT ILLNESS: This is a pleasant 78-year-old woman who I was asked to evaluate for kyphoplasty of a T5 fracture. She has experienced a recent fall and upper thoracic pain since the fall. Currently, the pain is much improved and the patient is participating in physical therapy. She is not particularly tender to palpation at the T5 level. She describes some lower extremity symptoms, which are felt to be related to neuropathy secondary to chemotherapy. I reviewed her CT scans, which revealed what appears to be an acute T5 compression fracture. No obvious lytic mass is seen. The patient has not had an MRI at this point in time. PAST MEDICAL HISTORY: Significant for coronary artery disease and atrial fibrillation. She also has COPD. I placed a venous port in 04/2018 for chemotherapy related to breast cancer. RECOMMENDATIONS: At the current time, the patient is not particularly asymptomatic. However, she is receiving scheduled opiates and a Lidoderm patch. She is progressing with her physical therapy and not asking for p.r.n. medications. I would recommend allowing her to continue with conservative management and physical therapy. If her pain gets worse or if she is unable to perform her normal routine, an MRI of the thoracic spine can be performed to evaluate the T5 fracture and she can be considered for a T5 kyphoplasty. Dallas Denise MD [facility]
[2018-08-03] MEDS: Pantoprazole 40 mg EC Tab PO SCH (05:45)
[2018-08-03] MEDS: Arformoterol 15 mcg/2 ml Inh Sol IH SCH ×2 (07:20→21:49)
[2018-08-03] MEDS: Lidocaine 5% Patch TD SCH (09:56)
[2018-08-03] MEDS: Morphine 15 mg SR Tab PO SCH ×2 (09:58→21:09)
[2018-08-03] MEDS: Enoxaparin 30 mg Syringe SC SCH (09:58)
[2018-08-03] MEDS: Docusate-Senna 50 mg-8.6 mg Tab PO SCH ×2 (09:59→17:14)
[2018-08-03] MEDS: Amoxicillin-Clav 500-125 mg Tab PO SCH ×2 (10:00→17:15)
--- NOTE | 2018-08-03 11:23 | RAD ---
Date of service: 08/03/2018 HISTORY: COPD COMPARISON: 07/28/2018 TECHNIQUE: Chest PA and lateral FINDINGS: LUNGS: There is linear scarring at both lung bases PLEURA: No significant pleural effusion identified. No pneumothorax apparent. CARDIOVASCULAR: No aortic atherosclerotic calcification present. Normal cardiac size. No pulmonary vascular congestion. OSSEOUS STRUCTURES: Sternal wires VISUALIZED UPPER ABDOMEN: Normal. OTHER FINDINGS: None. IMPRESSION: No active disease.
--- NOTE | 2018-08-03 12:17 | PN ---
DATE: 08/03/2018 SUBJECTIVE: She is comfortable in bed, in no acute distress. She has short of breath on walking short distances. She is desaturating oxygen saturation to 83% on room air. She is currently on oxygen by nasal cannula. She has COPD, severe type emphysematous changes in both lungs. She also has pulmonary hypertension. No fever, slight cough with expectoration, yellowish in color. REVIEW OF SYSTEMS: As per HPI. Rest of 12 point system reviewed negative. PHYSICAL EXAMINATION: GENERAL: Comfortable in bed, in no acute distress. VITAL SIGNS: Temperature 97.6, heart rate 67 per minute, blood pressure 120/73, respiratory rate 20 per minute, oxygen saturation 96% on oxygen by nasal cannula. HEENT: Pallor positive. NECK: No lymphadenopathy. CHEST: Air entry present and equal bilaterally. No added sounds. CARDIOVASCULAR. S1 and S2 normal. No murmur. No gallop. ABDOMEN: Soft, nontender. No hepatosplenomegaly. EXTREMITIES: No edema. LABORATORY DATA: White count 9.2, hemoglobin 9.5, hematocrit 29, platelet 277. Sodium 134, potassium 3.5, BUN 17. LFTs within normal limits. MEDICATIONS: Albuterol every 6 hours p.r.n., amiodarone 200 mg p.o. daily, Augmentin b.i.d., Brovana 15 mcg inhalation, aspirin 81 mg daily, Lipitor 20 mg daily, Lovenox 30 subcu daily, Lexapro 40 daily, hydrochlorothiazide 25 daily, morphine sulfate 15 mg p.o. every 12 hours, oxycodone 10 mg every 6 hours p.r.n., metoprolol 50 mg b.i.d. ASSESSMENT AND PLAN: 1. Breast cancer, right, currently on weekly Taxotere. 2. Chronic obstructive pulmonary disease with severe emphysematous changes in both lungs. Currently on oxygen by nasal cannula. She will need home oxygen as she is desaturating to 83% on room air. She is also on sildenafil for pulmonary hypertension. Mucopurulent expectoration, scant. Chest x-ray posteroanterior and lateral stat. Augmentin 500 b.i.d. 3. New vertebral fracture, T5. Evaluated by Dr. Dallas Denise for kyphoplasty. Her pain is well controlled and she is ambulating without discomfort. We will hold kyphoplasty for now. If pain worsens, we will reconsider it. 4. Lower extremity weakness. Evaluated by Neurology, Dr. Viveros, notes reviewed, appreciate the consult. Continue deep vein thrombosis prophylaxis. Discharge planning for Tuesday. She will need home oxygen, a walker, and assistance with transportation for office visits. Discussed with staff nurse. Discussed with the case mgr. Lizbet Phillips MD
[2018-08-03] MEDS: Mometasone 220 mcg/puff-14 puff Inh IH SCH (17:14)
[2018-08-04] MEDS: Albuterol-Ipratrop 3 mg / 0.5 (3 ml) UD IH SCH ×3 (08:35→19:56)
[2018-08-04] MEDS: Arformoterol 15 mcg/2 ml Inh Sol IH SCH ×2 (08:35→19:56)
[2018-08-04] MEDS: Amoxicillin-Clav 500-125 mg Tab PO SCH ×2 (10:58→17:20)
[2018-08-04] MEDS: Morphine 15 mg SR Tab PO SCH ×2 (11:00→21:58)
[2018-08-04] MEDS: Enoxaparin 30 mg Syringe SC SCH (11:00)
[2018-08-04] MEDS: Lidocaine 5% Patch TD SCH (11:00)
[2018-08-04] MEDS: Docusate-Senna 50 mg-8.6 mg Tab PO SCH ×2 (11:00→17:21)
[2018-08-04 17:00] VITALS: TEMP 97.6
[2018-08-04] MEDS: Mometasone 220 mcg/puff-14 puff Inh IH SCH (17:22)
[2018-08-05] MEDS: Arformoterol 15 mcg/2 ml Inh Sol IH SCH (08:29)
[2018-08-05] MEDS: Albuterol-Ipratrop 3 mg / 0.5 (3 ml) UD IH SCH (08:29)
[2018-08-05 10:32] VITALS: BP 99/50; PULSE 69; RESP 20; O2SAT 99
[2018-08-05] MEDS: Lidocaine 5% Patch TD SCH (10:42)
[2018-08-05] MEDS: Amoxicillin-Clav 500-125 mg Tab PO SCH (10:43)
[2018-08-05] MEDS: Docusate-Senna 50 mg-8.6 mg Tab PO SCH (10:43)
== END 2018-08-05 11:28 | disposition home or self-care (01) | DRG 945 ==
LOC: TRCU 14:30
PROVIDERS: ADMIT Internal Medicine Medical Oncology; ATTEND Internal Medicine Medical Oncology
PROC: F07Z9FZ Gait Training/Functional Ambulation Treatment using Assistive, Adaptive, Supportive or Protective Equipment (ICD-10-PCS; principal; 2018-07-31)
PROC: 3E0F7GC Introduction of Other Therapeutic Substance into Respiratory Tract, Via Natural or Artificial Opening (ICD-10-PCS; 2018-07-31)
PROC: F08Z4FZ Home Management Treatment using Assistive, Adaptive, Supportive or Protective Equipment (ICD-10-PCS; 2018-08-01)
DX: R53.1 Weakness (principal); M48.54XA Collapsed vertebra, not elsewhere classified, thoracic region, initial encounter for fracture; G62.9 Polyneuropathy, unspecified; C50.911 Malignant neoplasm of unspecified site of right female breast; I25.10 Atherosclerotic heart disease of native coronary artery without angina pectoris; I27.20 Pulmonary hypertension, unspecified; J44.9 Chronic obstructive pulmonary disease, unspecified; I48.91 Unspecified atrial fibrillation; Z95.1 Presence of aortocoronary bypass graft

== ENCOUNTER 2018-08-26 16:02 | Emergency (ER) | payer MEDICARE, MEDICAID ==
[2018-08-26 16:05] VITALS: BMI 24.6
[2018-08-26 16:11] VITALS: TEMP 98.8
--- NOTE | 2018-08-26 16:29 | ED PDOC ---
Arrival/HPI - General Chief Complaint: Rib Injury Time Seen by Provider: 08/26/18 16:03 Historian: Patient - History of Present Illness Narrative History of Present Illness (Text): 08/26/18 16:28 78 year old female, with past medical history of hypertension, CAD with CABG, COPD, h/o CAP ( November 2016), multi level degenerative disc, and breast CA, presents to emergency department complaining of rib pain on both sides for the past week and a half. Patient reports falling about a month ago but denies any recent fall or injury. Patient informs she has been taking morphine for the past week with no significant improvement. Patient states she finished her chemotherapy last week and is starting radiation soon. Patient denies fevers, chills, headache, dizziness, chest pain, shortness of breath, cough, abdominal pain, nausea, vomiting, diarrhea, back pain, neck pain, or any other complaints. PMD: Time/Duration: > week (week and a half ) Symptom Onset: Gradual Symptom Course: Unchanged Activities at Onset: Light Context: Home Past Medical History - Provider Review Nursing Documentation Reviewed: Yes - Infectious Disease Hx of Infectious Diseases: None - Reproductive Menopause: No - Cardiac Hx Pacemaker: No - Pulmonary Hx Asthma: Yes Hx Chronic Obstructive Pulmonary Disease (COPD): Yes - Neurological Hx Neurological Disorder: No - HEENT Hx HEENT Disorder: Yes (reading glasses) Hx Cataracts: Yes (cataract sx b/l lens implant age 52) - Renal Hx Renal Disorder: No - Endocrine/Metabolic Hx Endocrine Disorders: No - Hematological/Oncological Hx Cancer: Yes (Right breast CA) - Integumentary Other/Comment: b/l arms multiple eccymotic areas "I bruise easily.", fell about a month ago slipped on a towel on the floor dry scab left knee surrounding skin red, fading bruises both knees from "crawling on floor when I fell", bruises both arms, redness to bottom of both feet, dry skin, redness tp sides of toes 4 & 5 both feet, redness to b/l bunyons, crooked great toes both feet, ble +1 pitting edema, red coccyx - Musculoskeletal/Rheumatological Hx Falls: Yes (recent fall) - Gastrointestinal Hx Gastroesophageal Reflux: Yes Other/Comment: pt denies colon polyps, pt had stomach polypectomy, hx gastroenteritis, recent colonoscopy 02/16/18 + large polyp - Genitourinary/Gynecological Hx Genitourinary Disorders: No - Psychiatric Hx Emotional Abuse: No Hx Physical Abuse: No Hx Substance Use: No - Surgical History Other/Comment: R breast bx 10/26/17, right external jugular venous port 04/24/18 dr carlyle albrecht, 03/02/18 lap and 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 results as per pt, done by dr ahsan dubose - Anesthesia Hx Anesthesia: Yes Hx Anesthesia Reactions: No Hx Malignant Hyperthermia: No - Suicidal Assessment Feels Threatened In Home Enviroment: No Family/Social History - Physician Review Nursing Documentation Reviewed: Yes Smoking Status: Former Smoker Hx Alcohol Use: No Hx Substance Use: No Hx Substance Use Treatment: No Allergies/Home Meds Allergies/Adverse Reactions: Allergies No Known Allergies Allergy (Verified 07/31/18 14:44) Home Medications: Home Meds Medication Instructions Recorded Confirmed Metoprolol Tartrate [Lopressor] 50 mg PO BID 12/18/16 07/31/18 hydroCHLOROthiazide [Hydrodiuril] 25 mg PO DAILY 12/18/16 07/31/18 Escitalopram [Lexapro] 10 mg PO DAILY 03/21/17 07/31/18 Fluticasone Propionate [Flovent 1 puff IH BID 03/21/17 07/31/18 Hfa] Umeclidinium [place] [Incruse 1 puff IH DAILY 03/21/17 07/31/18 Ellipta] Amiodarone [Cordarone] 200 mg PO DAILY 02/14/18 07/31/18 Aspirin [Ecotrin] 81 mg PO DAILY 02/14/18 07/31/18 Review of Systems - Review of Systems Respiratory: absent: SOB, Cough, Wheezing Cardiovascular: absent: Chest Pain Gastrointestinal: absent: Abdominal Pain, Diarrhea, Nausea, Vomiting Genitourinary Female: absent: Frequency, Hematuria, Urine Output Changes Musculoskeletal: Other (rib pain on both sides). absent: Back Pain, Neck Pain Skin: absent: Rash Neurological: absent: Headache, Dizziness Physical Exam Vital Signs Reviewed: Yes Vital Signs Temp Pulse Resp BP Pulse Ox 08/26/18 16:05 98.8 F 61 20 145/71 99 Temperature: Afebrile Blood Pressure: Normal Pulse: Regular Respiratory Rate: Normal Appearance: Positive for: Well-Appearing, Non-Toxic, Comfortable Pain Distress: None Mental Status: Positive for: Alert and Oriented X 3 - Systems Exam Head: Present: Atraumatic, Normocephalic Pupils: Present: PERRL Extroacular Muscles: Present: EOMI Conjunctiva: Present: Normal Mouth: Present: Moist Mucous Membranes Neck: Present: Normal Range of Motion Respiratory/Chest: Present: Clear to Auscultation, Good Air Exchange. No: Respiratory Distress, Accessory Muscle Use Cardiovascular: Present: Regular Rate and Rhythm, Normal S1, S2. No: Murmurs Abdomen: Present: Other (tenderness to bilateral ribcage, no crepitus, no edema, belly soft ). No: Tenderness, Distention, Peritoneal Signs Back: Present: Normal Inspection. No: CVA Tenderness Upper Extremity: Present: Normal Inspection. No: Cyanosis, Edema Lower Extremity: Present: Normal Inspection. No: Edema Neurological: Present: GCS=15, CN II-XII Intact, Speech Normal Skin: Present: Warm, Dry, Normal Color. No: Rashes Psychiatric: Present: Alert, Oriented x 3, Normal Insight, Normal Concentration Medical Decision Making ED Course and Treatment: 08/26/18 16:56 Impression: 78 year old female presents to emergency department complaining of rib pain for the past week and a half. Plan: -- Ribs x-ray -- Reassess and disposition Prior Visits: Notes and results from previous visits were reviewed. Patient was last seen in the emergency department on Progress Notes: 08/26/18 18:11 Ribs x-ray, reviewed by radiologist: Impression: No definite evidence of destructive bony lesion or acute displaced fracture in the ribs. 08/26/18 18:20 Case discussed with , who instructed patient to take her morphine and oxycodone and follow up at her office on Tuesday or Tuesday. Dr. Otto asked for her prescription to be refilled here if needed and states that her current condition is possibly related to her old fracture. 08/26/18 18:31 Patient reports not having taken her morphine or oxycodone. 08/26/18 18:35 Nurse Gutierrez and spoke to patient on how to take her medication from now on. - Scribe Statement The provider has reviewed the documentation as recorded by the Scribe Sofy Vazquez All medical record entries made by the Scribe were at my direction and personally dictated by me. I have reviewed the chart and agree that the record accurately reflects my personal performance of the history, physical exam, medical decision making, and the department course for this patient. I have also personally directed, reviewed, and agree with the discharge instructions and disposition. Disposition/Present on Arrival - Present on Arrival Any Indicators Present on Arrival: No History of DVT/PE: No History of Uncontrolled Diabetes: No Urinary Catheter: No History of Decub. Ulcer: No History Surgical Site Infection Following: None - Disposition Have Diagnosis and Disposition been Completed?: Yes Diagnosis: Chronic pain Disposition: HOME/ ROUTINE Disposition Time: 18:35 Patient Plan: Discharge Patient Problems: Current Active Problems Problem Status Onset Chronic pain Acute Condition: STABLE Discharge Instructions (ExitCare): Chronic Pain (DC) Referrals: Lizbet Phillips MD [Primary Care Provider] - Follow up with primary Forms: [employer] (Haitian)
--- NOTE | 2018-08-26 17:51 | RAD ---
Date of service: 08/26/2018 PROCEDURE: Radiographs of the chest and bilateral ribs HISTORY: pain COMPARISON: Comparison is made to the previous chest x-ray dated 08/03/2018 TECHNIQUE: Frontal radiograph of the chest and multiple oblique radiographs of the bilateral ribs were obtained. FINDINGS: RIGHT RIBS: No acute displaced fracture or focal lesion visualized. LEFT RIBS: No no acute displaced fracture or focal lesion visualized. LUNGS: Reticular opacities are noted in the lungs. No definite evidence of large consolidation. PLEURA: No pneumothorax or pleural fluid. CARDIOVASCULAR: Normal cardiac size. No pulmonary vascular congestion. No aortic atherosclerotic calcification present right-sided Infusaport is seen in place. Post sternotomy changes are also noted. OTHER FINDINGS: Postsurgical changes and surgical clips noted at overlying the right mid chest. IMPRESSION: No definite evidence of destructive bony lesion or acute displaced fracture in the ribs.
[2018-08-26 18:30] VITALS: RESP 18; O2SAT 97
[2018-08-26 18:58] VITALS: BP 159/88; PULSE 62
== END 2018-08-26 19:00 | disposition home or self-care (01) ==
LOC: ED 16:02
DX: G89.29 Other chronic pain (principal); I10 Essential (primary) hypertension; I25.10 Atherosclerotic heart disease of native coronary artery without angina pectoris; J44.9 Chronic obstructive pulmonary disease, unspecified; Z87.891 Personal history of nicotine dependence; Z85.3 Personal history of malignant neoplasm of breast

== ENCOUNTER 2018-08-28 12:15 | Inpatient (IN) | payer MEDICARE, MEDICAID ==
[2018-08-28 12:16] VITALS: BMI 24.6
[2018-08-28] MEDS ORDERED: Lidocaine 5% Patch TD STA (12:57)
--- NOTE | 2018-08-28 13:54 | ED PDOC ---
Arrival/HPI - General Chief Complaint: Back Pain Historian: Patient, Family (daughter at bedside) - History of Present Illness Narrative History of Present Illness (Text): 08/28/18 13:08 78 year old female, whose past medical history includes hypertension, CAD with CABG, COPD, h/o CAP ( November 2016), multi level degenerative disc, and breast CA, who presesnts to the emergency department complaining of back pain that has not been relieved from prescribed Morphine and Oxycontin since previous visist to emergency department 2 days ago for fall. Patient reports she slipped and fell on a towel in the bathroom, hitting the floor with her back, and presented to the Emergency department 2 days ago for evaluation and treatment. Patient states her helped her stand up after the fall, noting she was not able to ambulate with his assistance. Patient states she has been taking the prescribed Morphine 15 mg twice a day (morning and night), and Oxycontin every 2 hours after, with no significant relief. Patient notes she last took her Morphine medication at 11:30 today. Patient states she has not taken all of her other medications today. Patient states she has been seeing Dr. Phillips, who knows she is here today. Daughter at bedside reports patient does not have an at home nurse and has difficulty doing anything, including going to the bathroom. Patient notes she always has shortness of breath, due to her COPD. Patient notes nausea. Patient denies any fever, chills, bleeding, abrasions on body, wheezing, chest pain, vomiting, diarrhea, urinary symptoms, neck pain, headache, dizziness, or any other complaints. PMD: Lizbet Maria Time/Duration: Prior to Arrival Symptom Onset: Sudden Symptom Course: Unchanged Context: Slipped (pt notes slipping and falling on towel in bathroom) Past Medical History - Provider Review Nursing Documentation Reviewed: Yes - Infectious Disease Hx of Infectious Diseases: None - Cardiac Hx Pacemaker: No - Pulmonary Hx Asthma: Yes Hx Chronic Obstructive Pulmonary Disease (COPD): Yes - Neurological Hx Neurological Disorder: No - HEENT Hx HEENT Disorder: Yes (reading glasses) Hx Cataracts: Yes (cataract sx b/l lens implant age 52) - Renal Hx Renal Disorder: No - Endocrine/Metabolic Hx Endocrine Disorders: No - Hematological/Oncological Hx Cancer: Yes (Right breast CA) - Integumentary Other/Comment: b/l arms multiple eccymotic areas "I bruise easily.", fell about a month ago slipped on a towel on the floor dry scab left knee surrounding skin red, fading bruises both knees from "crawling on floor when I fell", bruises both arms, redness to bottom of both feet, dry skin, redness tp sides of toes 4 & 5 both feet, redness to b/l bunyons, crooked great toes both feet, ble +1 pitting edema, red coccyx - Musculoskeletal/Rheumatological Hx Falls: Yes (recent fall) - Gastrointestinal Hx Gastroesophageal Reflux: Yes Other/Comment: pt denies colon polyps, pt had stomach polypectomy, hx gastroenteritis, recent colonoscopy 02/16/18 + large polyp - Genitourinary/Gynecological Hx Genitourinary Disorders: No - Psychiatric Hx Emotional Abuse: No Hx Physical Abuse: No Hx Substance Use: No - Surgical History Other/Comment: R breast bx 10/26/17, right external jugular venous port 04/24/18 dr carlyle albrecht, 03/02/18 lap and 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 results as per pt, done by dr ahsan dubose - Anesthesia Hx Anesthesia: Yes Hx Anesthesia Reactions: No Hx Malignant Hyperthermia: No - Suicidal Assessment Feels Threatened In Home Enviroment: No Family/Social History - Physician Review Nursing Documentation Reviewed: Yes Family/Social History: No Known Family HX Smoking Status: Former Smoker Hx Alcohol Use: No Hx Substance Use: No Hx Substance Use Treatment: No Allergies/Home Meds Allergies/Adverse Reactions: Allergies No Known Allergies Allergy (Verified 07/31/18 14:44) Home Medications: Home Meds Medication Instructions Recorded Confirmed RX: Metoprolol Tartrate [Lopressor] 50 mg PO BID 12/18/16 07/31/18 RX: hydroCHLOROthiazide 25 mg PO DAILY 12/18/16 07/31/18 [Hydrodiuril] RX: Escitalopram [Lexapro] 10 mg PO DAILY 03/21/17 07/31/18 RX: Fluticasone Propionate 1 puff IH BID 03/21/17 07/31/18 [Flovent Hfa] RX: Umeclidinium [place] [Incruse 1 puff IH DAILY 03/21/17 07/31/18 Ellipta] RX: Amiodarone [Cordarone] 200 mg PO DAILY 02/14/18 07/31/18 RX: Aspirin [Ecotrin] 81 mg PO DAILY 02/14/18 07/31/18 Review of Systems - Physician Review All systems were reviewed & negative as marked: Yes - Review of Systems Constitutional: Normal. absent: Fevers Respiratory: SOB (pt notes she always has shortness of breath, due to her COPD ). absent: Normal Cardiovascular: Normal. absent: Chest Pain Gastrointestinal: Nausea (pt notes nausea). absent: Normal, Diarrhea, Vomiting Genitourinary Female: Normal. absent: Urine Output Changes Musculoskeletal: Back Pain (pt notes back pain since fall ). absent: Normal, Neck Pain Neurological: Gait Changes (Pt notes difficulty ambulating around home). absent: Normal, Headache, Dizziness Physical Exam Vital Signs Reviewed: Yes Vital Signs Temp Pulse Resp BP Pulse Ox 08/28/18 12:33 98.1 F 66 18 123/67 98 Temperature: Afebrile Blood Pressure: Normal Pulse: Regular Respiratory Rate: Normal Appearance: Positive for: Well-Appearing, Non-Toxic Pain Distress: Mild Mental Status: Positive for: Alert and Oriented X 3 - Systems Exam Head: Present: Atraumatic, Normocephalic Pupils: Present: PERRL Extroacular Muscles: Present: EOMI Conjunctiva: Present: Normal Mouth: Present: Moist Mucous Membranes Neck: Present: Normal Range of Motion Respiratory/Chest: Present: Other (Palpable port on right upper hemithorax) Cardiovascular: Present: Regular Rate and Rhythm, Normal S1, S2. No: Murmurs Abdomen: No: Tenderness, Distention, Peritoneal Signs Back: Present: Paraspinal Tenderness (Paraspinal tenderness of Trapezius muscle bilaterally ). No: Normal Inspection Upper Extremity: Present: Normal Inspection, Normal ROM. No: Cyanosis, Edema Lower Extremity: Present: Normal Inspection. No: Edema Neurological: Present: GCS=15 Skin: Present: Warm, Dry, Normal Color. No: Rashes Psychiatric: Present: Alert, Oriented x 3, Normal Insight, Normal Concentration Medical Decision Making ED Course and Treatment: 08/28/18 13:08 Impression: 78 year old female presents to the Emergency department for pain management of back pain that started after slip and fall, noting Morphine and Oxycontin have not relieved pain. Differential Diagnosis included but are not limited to: --Intractable back pain --Compression fracture Plan: -- CT of Thoracic Spine w/o contrast -- EKG -- Lidoderm -- Toradol --Dilaudid PO --Labs --Access Port --EKG -- Reassess and disposition Prior Visits: Notes and results from previous visits were reviewed. Patient was last seen in the emergency department on 08/26/18 complaining of rib pain on both sides for the past week and a half. Pt was discharged home in good condition for chronic pain and directed to follow up with PMD. Progress Notes: 08/28/18 15:[address] Phillips(oncology) who states patient should be admitted to her service and requests Dr. Viveros(neurology) for consult. Labs ordered. - RAD Interpretation Narrative RAD Interpretations (Text): CT of Thoracic Spine reviewed by radiologist, shows: Dictated By: Sabino Koch Dictated Date/Time: 08/28/18 14:16 Impression: There are chronic appearing anterior wedge compression fractures of the T5 and T7 segments with minimal retropulsion of posterior cortices of both of these segments. No evidence of significant canal stenosis at these or other levels. Centrilobular/panlobular emphysematous changes. Radiology Orders: 08/28/18 12:59 THORACIC SPINE W/O CONT [CT] Stat Electronic Data Processing Auditor: Radiologist - Medication Orders Current Medication Orders: Discontinued Medications Fentanyl (Fentanyl) 50 mcg IVP ONCE ONE Stop: 08/28/18 12:58 Ketorolac Tromethamine (Toradol) 30 mg IVP STAT STA Stop: 08/28/18 13:01 Lidocaine (Lidoderm) 1 ea TD STAT STA Stop: 08/28/18 12:58 - Scribe Statement The provider has reviewed the documentation as recorded by the Scribbello Pradhan All medical record entries made by the Scribe were at my direction and personally dictated by me. I have reviewed the chart and agree that the record accurately reflects my personal performance of the history, physical exam, medical decision making, and the department course for this patient. I have also personally directed, reviewed, and agree with the discharge instructions and disposition. Disposition/Present on Arrival - Present on Arrival Any Indicators Present on Arrival: No History of DVT/PE: No History of Uncontrolled Diabetes: No Urinary Catheter: No History of Decub. Ulcer: No History Surgical Site Infection Following: None - Disposition Have Diagnosis and Disposition been Completed?: Yes Diagnosis: Intractable pain Disposition: HOSPITALIZED Disposition Time: 15:00 Patient Plan: Observation Patient Problems: Current Active Problems Problem Status Onset Intractable pain Acute Condition: STABLE
--- NOTE | 2018-08-28 14:19 | CT ---
Date of service: 08/28/2018 PROCEDURE: CT Thoracic Spine without contrast HISTORY: Status post fall and history of T5 compression fracture. COMPARISON: None available. TECHNIQUE: Axial computed tomography images were obtained of the thoracic spine without intravenous contrast. Coronal and sagittal reformatted images were created and reviewed. Radiation dose: Total exam DLP = 546.91 mGy-cm. This CT exam was performed using one or more of the following dose reduction techniques: Automated exposure control, adjustment of the mA and/or kV according to patient size, and/or use of iterative reconstruction technique. FINDINGS: VERTEBRAE: There are chronic compression fractures of the T5 and T7 segments. Mild kyphotic angulation deformity centered at the T5 level is present.. Minimal retropulsion of the posterior cortices both of these segments lateral more so than former. The remaining vertebral bodies otherwise exhibit relatively normal stature. There is mild dextroscoliosis centered at the thoracolumbar junction. Vertebral bodies and facets otherwise normally aligned. Mild diffuse demineralization. No suspicious lytic or blastic lesions are identified. DISCS/SPINAL CANAL/NEURAL FORAMINA: Multilevel degenerative spondylosis.. Changes include varying degrees of disc desiccation and disc space narrowing with mild endplate eburnation and small anterolateral osteophyte formation. No disc herniation or significant disc bulge. The overall central bony canal does appear adequate in spite of the aforementioned minimal retropulsion of the posterior cortices. PARASPINAL SOFT TISSUES: Unremarkable. OTHER FINDINGS: Centrilobular-panlobular emphysematous changes are present. Mild passive-dependent type atelectasis seen both posterior lung chaidez. IMPRESSION: There are chronic appearing anterior wedge compression fractures of the T5 and T7 segments with minimal retropulsion of posterior cortices of both of these segments. No evidence of significant canal stenosis at these these or other levels. Centrilobular/panlobular emphysematous changes.
--- NOTE | 2018-08-28 16:36 | CARD ---
APPROVED REPORT Date of service: 08/28/2018 EKG Measurement Heart [id number] 122P [id number] <Conclusion> Normal sinus rhythm Right bundle branch block T wave abnormality, consider lateral ischemia Abnormal ECG
[2018-08-28 17:18] LABS: BASO # 0.01 K/mm3 (0.0-2.0); BASO % 0.3 % (0.0-3.0); HEMOGLOBIN 9.6 g/dL (12.0-16.0); LYMPH # 0.5 (1.2-3.4); LYMPH % 17.7 % (22.0-35.0); MEAN CELL VOLUME 97.4 fl (80.0-105.0); MEAN CORPUSCULAR HGB CONC 31.8 g/dl (31.0-37.0); MEAN PLATELET VOLUME 9.8 fl (7.0-11.0); MONO # 0.1 (0.1-0.6); MONO % 4.4 % (1.0-6.0); RBC 3.1 10^6/uL (3.5-6.1); RED CELL DISTRIBUTION WIDTH 17.5 % (11.5-14.5)
[2018-08-28 17:21] LABS: WHITE BLOOD COUNT 3.1 10^3/uL (4.5-11.0)
[2018-08-28 17:23] LABS: ALB/GLOB RATIO 1.2 (1.1-1.8); ALT/SGPT 37 U/L (7-56); AST/SGOT 33 U/L (14-36); BLOOD UREA NITROGEN 8 mg/dL (7-21); CALCIUM 9.1 mg/dL (8.4-10.5); GFR NON-AFRICAN AMERICAN > 60
[2018-08-28] MEDS: Sildenafil 20 MG TAB PO SCH (19:48)
[2018-08-28] MEDS ORDERED: HYDROmorphone 1 mg/ml ISec IVP STA (19:50)
[2018-08-29] MEDS: Arformoterol 15 mcg/2 ml Inh Sol IH SCH ×3 (05:06→20:15)
[2018-08-29] MEDS: Albuterol-Ipratrop 3 mg / 0.5 (3 ml) UD IH SCH ×4 (05:07→20:15)
[2018-08-29] MEDS: Morphine 15 mg SR Tab PO SCH ×3 (05:07→21:04)
[2018-08-29] MEDS: HYDROmorphone 1 mg/ml ISec IM PRN ×2 (05:14→15:25)
[2018-08-29] MEDS: Sildenafil 20 MG TAB PO SCH (09:13)
[2018-08-29] MEDS: Docusate-Senna 50 mg-8.6 mg Tab PO SCH ×2 (09:14→18:28)
[2018-08-29] MEDS ORDERED: Morphine 15 mg SR Tab PO STA (09:51)
[2018-08-29 10:00] LABS: BASO # 0.02 K/mm3 (0.0-2.0); BASO % 0.6 % (0.0-3.0); EOS % 0.3 % (1.5-5.0); HEMOGLOBIN 10.2 g/dL (12.0-16.0); LYMPH # 0.5 (1.2-3.4); LYMPH % 15.8 % (22.0-35.0); MEAN CELL VOLUME 97.6 fl (80.0-105.0); MEAN CORPUSCULAR HEMOGLOBIN 30.8 pg (25.0-35.0); MEAN CORPUSCULAR HGB CONC 31.6 g/dl (31.0-37.0); MEAN PLATELET VOLUME 9.5 fl (7.0-11.0); MONO # 0.3 (0.1-0.6); MONO % 9.1 % (1.0-6.0); RBC 3.31 10^6/uL (3.5-6.1); RED CELL DISTRIBUTION WIDTH 17.7 % (11.5-14.5); WHITE BLOOD COUNT 3.3 10^3/uL (4.5-11.0)
[2018-08-29] MEDS ORDERED: Enoxaparin 30 mg Syringe SC SCH (10:00)
[2018-08-29 10:15] LABS: ALB/GLOB RATIO 1.2 (1.1-1.8); ALBUMIN 3.1 g/dL (3.0-4.8); ALT/SGPT 37 U/L (7-56); AST/SGOT 32 U/L (14-36); BLOOD UREA NITROGEN 10 mg/dL (7-21); CALCIUM 9.1 mg/dL (8.4-10.5); GFR NON-AFRICAN AMERICAN > 60
[2018-08-29] MEDS ORDERED: Potassium Chloride 20 mEq ER Tab PO ONE (12:36)
--- NOTE | 2018-08-29 12:39 | CP.PCM.APN ---
Subjective - Date & Time of Evaluation Date of Evaluation: 08/29/18 Time of Evaluation: 10:15 - Subjective Subjective: Pt seen and examined at bedside. C/O upper back pain. Objective - Vital Signs/Intake and Output Vital Signs (last 24 hours): Temp Pulse Resp BP Pulse Ox 97.8 F 60 18 140/58 L 95 08/29/18 06:26 08/29/18 09:14 08/29/18 06:26 08/29/18 09:14 08/29/18 06:26 - Medications Medications: Current Medications Albuterol/Ipratropium (Duoneb 3 Mg/0.5 Mg (3 Ml) Ud) 3 ml IH [id number] [facility] Last Admin: 08/29/18 07:49 Dose: 3 ml Arformoterol Tartrate (Brovana) 15 mcg IH [id number] [facility] Last Admin: 08/29/18 07:48 Dose: 15 mcg Aspirin (Ecotrin) 81 mg PO DAILY [facility] Last Admin: 08/29/18 09:13 Dose: 81 mg Atorvastatin Calcium (Lipitor) 20 mg PO DIN [facility] Cyclobenzaprine HCl (Flexeril) 5 mg PO BID [facility] Last Admin: 08/29/18 09:13 Dose: 5 mg Enoxaparin Sodium (Lovenox) 30 mg SC DAILY [facility]; Protocol Last Admin: 08/29/18 09:13 Dose: 30 mg Escitalopram Oxalate (Lexapro) 10 mg PO DAILY [facility] Last Admin: 08/29/18 09:13 Dose: 10 mg Hydrochlorothiazide (Hydrodiuril) 25 mg PO DAILY [facility] Last Admin: 08/29/18 09:14 Dose: 25 mg Hydromorphone HCl (Dilaudid) 1 mg IM Q4H PRN PRN Reason: Pain, severe (8-10) Last Admin: 08/29/18 05:14 Dose: 1 mg Metoprolol Tartrate (Lopressor) 50 mg PO BID [facility] Last Admin: 08/29/18 09:14 Dose: 50 mg Montelukast Sodium (Singulair) 10 mg PO HS [facility] Last Admin: 08/29/18 05:07 Dose: Not Given Morphine Sulfate (Morphine Extended Release Tab) 15 mg PO Q12 [facility] Last Admin: 08/29/18 09:14 Dose: 15 mg Oxycodone HCl (Oxycodone Immediate Release Tab) 10 mg PO Q6H PRN PRN Reason: Pain, moderate (4-7) Pregabalin (Lyrica) 50 mg PO HS [facility] Last Admin: 08/29/18 05:07 Dose: Not Given Senna/Docusate Sodium (Senokot S 50 Mg-8.6 Mg) 1 tab PO BID [facility] Last Admin: 08/29/18 09:14 Dose: 1 tab Sildenafil Citrate (Revatio) 20 mg PO BID [facility] Last Admin: 08/29/18 09:13 Dose: 20 mg - Labs Labs: 08/29/18 09:45 08/29/18 09:45 - Constitutional Appears: No Acute Distress - Head Exam Head Exam: ATRAUMATIC - Neck Exam Neck Exam: Full ROM - Respiratory Exam Additional comments: mild wheezing on kay lungs - Cardiovascular Exam Cardiovascular Exam: REGULAR RHYTHM, +S1, +S2 - GI/Abdominal Exam GI & Abdominal Exam: Soft, Normal Bowel Sounds - Rectal Exam Rectal Exam: Deferred - Extremities Exam Extremities Exam: Normal Inspection - Neurological Exam Neurological Exam: Alert, Awake, Oriented x3 Assessment and Plan - Assessment and Plan (Free Text) Assessment: Pt is a 78 y.o. female with pmhx of hypertension, CAD with CABG, COPD, h/o CAP ( November 2016), multi level degenerative disc, and breast CA, who presesnts to the emergency department complaining of back pain that has not been relieved from prescribed Morphine and Oxycontin since previous visit to emergency department 2 days ago for fall. Impressions Thoracic Spine CT 08/28/18 12:59 IMPRESSION: There are chronic appearing anterior wedge compression fractures of the T5 and T7 segments with minimal retropulsion of posterior cortices of both of these segments. No evidence of significant canal stenosis at these these or other levels. Centrilobular/panlobular emphysematous changes. Plan: Pain management Pending MRI of Thoracic Spine IR on consult - ?kypho Meds per MAR Will continue to follow
[2018-08-29] MEDS: oxyCODONE 10 mg Immediate Release Tab PO PRN (14:35)
--- NOTE | 2018-08-29 16:53 | MRI ---
Date of service: 08/29/2018 PROCEDURE: MR THORACIC SPINE WITHOUT CONTRAST HISTORY: eval T5 and T7 comp fx for kypho COMPARISON: Thoracic spine CT without contrast TECHNIQUE: Multiecho multiplanar sequences were performed through the thoracic spine without the use of intravenous contrast. FINDINGS: ALIGNMENT: A C-shaped scoliosis is reiterated without fracture or spondylolisthesis evident. No suspicious matter signal change are identified although gross benign hemangiomas are identified at T5 T9, T10 and T11. Anterior wedge chronic compression fracture is severe at T4 and moderate to severe at T6. No acute fracture appreciable. No suspicious edema pattern throughout the [place]. Kyphotic thoracic spinal deformity results from the aforementioned fractures. Remaining vertebral body heights are well preserved though deformed by scoliosis. Diffuse disc desiccation is appreciated. PARASPINAL SOFT TISSUES: Unremarkable. CORD: Unremarkable thoracic cord. No volume loss, signal abnormality or syrinx. DISCS: No disc herniation, spinal canal stenosis, or neuroforaminal narrowing. Convex posterior deformity of the posterior margins of the T4 and T6 vertebral bodies is identified related to their chronic fractures encroaching the ventral nerve roots without causing significant stenosis nevertheless. OTHER FINDINGS: None. IMPRESSION: Normal thoracic spinal cord in course caliber contour and intrinsic signal. Severe and moderate to severe chronic compression fractures are identified at T4 and T5 with posterior margins of these vertebral bodies encroaching the ventral nerve roots without significant stenosis at the respective levels. Kyphotic deformity of the thoracic spine results superimposed on C-shaped deformity. Widely patent central canal and neural foramina are identified.
--- NOTE | 2018-08-29 18:44 | CON ---
DATE: 08/29/2018 NEUROLOGY CONSULTATION CHIEF COMPLAINT: Upper, mid thoracic and lower back pain. HISTORY OF PRESENT ILLNESS: This is a 78-year-old woman with history of coronary artery disease status post CABG, COPD, history of community-acquired pneumonia in November of 2016, multilevel degenerative disk disease, breast cancer of the right breast, was on chemotherapy, again presented with intractable low back pain and frequent falls. Apparently, she is taking morphine, oxycodone, which has not helped. She underwent MRI of the thoracic spine, which showed severe and moderate to severe prior compression fractures of T4 and T5 and deformity of the thoracic spine and compression fractures and encroaching the ventral roots without any significant stenosis at respective levels. Currently, I placed her back on Lyrica 50 mg p.o. b.i.d. for neuropathic relief and could increase to 75 p.o. b.i.d. if necessary. She will need pain management. PAST MEDICAL HISTORY: As above. FAMILY HISTORY: Noncontributory. SOCIAL HISTORY: No illicit drug use, smoking or ETOH abuse. REVIEW OF SYSTEMS: A 14-point review of systems is negative except per the HPI. PHYSICAL EXAMINATION: GENERAL: The patient is sitting up in bed, in no acute distress. VITAL SIGNS: Temperature 98, pulse rate 65, blood pressure 110/60, respiratory rate 18 and oxygen saturation 96% on room air. HEENT: Atraumatic and normocephalic. PERRLA. Extraocular muscles are intact. NECK: Supple. No JVD. No adenopathy noted. LUNGS: Clear to auscultation. No adventitious sounds. HEART: S1 and S2. Normal rate and rhythm. No murmurs, rubs, or gallops. ABDOMEN: Soft, nontender, and nondistended. Bowel sounds are present. EXTREMITIES: No clubbing. No cyanosis. Peripheral pulses are 2+ felt bilaterally. NEUROLOGIC: The patient is alert and oriented to person, place, and month and year. Speech is fluent without errors. Cranial nerves II through XII are intact. Motor exam; moves all extremities. Toes are downgoing bilaterally. Sensory exam; Decreased light touch and pinprick up to the calves bilaterally. Decreased vibration at the toes. DTRs are 2+ throughout and 1 at both knees and ankles. Coordination, [id number] is intact. No dysmetria noted. Gait is deferred for now. MUSCULOSKELETAL: Mid thoracic lumbosacral tightness. LABORATORY DATA: Sodium 137, potassium 3.4, chloride 102, carbon dioxide 25, BUN 12, creatinine 0.6 and random glucose of 111. IMPRESSION AND PLAN: 1. Mid thoracic to low back pain secondary to severe and moderate to severe chronic compression fractures of T4 and T5, encroaching the ventral nerve roots causing neuropathic pain in addition to deformity of the thoracic spine. She also has poor balance and peripheral neuropathy, we have given her history of breast cancer status post chemotherapy. At this time, I recommend subacute rehab for physical and occupational therapy and lumbosacral stretches as was myofascial pain release, TENS unit, ultrasound therapy and therapeutic exercise. 2. Lidoderm patch to the area of pain. 3. Continue Lyrica 50 mg p.o. b.i.d. for neuropathic relief and could consider increased to 75 p.o. b.i.d. if necessary. 4. Needs pain management consultation. 5. Physical therapy and occupational therapy and possible kyphoplasty evaluation for the chronic compression and severe compression fracture of T4 and T5. Thank you for this consult. Flavio Viveros MD
--- NOTE | 2018-08-29 19:41 | CON ---
DATE: 08/28/2018 HISTORY OF PRESENT ILLNESS: Ms. Ramirez is a 78-year-old female, presented to the ER with severe back pain. She was admitted in July with T5 vertebral fracture after fall in the house. She fell again a week ago as told to me by the daughter. The patient did not communicate to me that she fell again in the house. CT of the spine showed T7 vertebral fracture in addition to old T5 vertebral fracture, which she had in July. She has a underlying COPD and has been on oral steroid for a long period of time for exacerbations. She also has pulmonary hypertension, was evaluated by Dr. Welsh during last hospitalization started on sildenafil. Denies any pain. No shortness of breath. No cough with expectoration. She has breast cancer, completed chemotherapy with weekly Taxotere. She was scheduled to undergo radiation to the right breast, which has been on hold because of the hospitalization and severe back pain. PAST MEDICAL HISTORY: Breast cancer, COPD, pulmonary hypertension, chronic kidney disease, peripheral vascular disease, peripheral neuropathy, recurrent falls, GE reflux. PAST SURGICAL HISTORY: Right-sided lumpectomy, polypectomy, recent adenoma resection right-sided colon. ALLERGIES: NO KNOWN DRUG ALLERGIES. HOME MEDICATIONS: Lexapro 10 mg daily, hydrochlorothiazide 25 mg daily, Lopressor 50 mg p.o. b.i.d., amiodarone 200 mg daily, aspirin 81 mg daily, and bronchodilators inhaler. REVIEW OF SYSTEMS: As per HPI. Rest of 12-point review of systems reviewed and negative. PHYSICAL EXAMINATION: GENERAL: Complaining of back pain and acute distress due to back pain. VITAL SIGNS: Temperature 98.1, heart rate 66 per minute, respiratory rate 18 per minute, blood pressure 125/67, pulse ox 98% on room air. HEENT: Pallor positive. NECK: No lymphadenopathy. CHEST: Fair air entry present equal bilaterally. No added sounds. CARDIOVASCULAR: S1 and S2 normal. No murmur. No gallop. ABDOMEN: Soft, nontender. No hepatosplenomegaly. EXTREMITIES: No edema. CENTRAL NERVOUS SYSTEM: Alert,oriented x 3. No focal sensory motor deficit. LABORATORY DATA: White count 3.1, hemoglobin 9.6, hematocrit 30.2, platelet 244. Sodium 137, potassium 3.7, creatinine 0.6. ASSESSMENT: 1. Status post recurrent fall T5-T7 vertebral fracture. 2. Brest cancer, status post right lumpectomy, completed weekly chemotherapy. 3. Chronic obstructive pulmonary disease. 4. Pulmonary hypertension. 5. Peripheral neuropathy. 6. Chronic back pain. PLAN: She will be admitted to the hospital. We will give Dilaudid 1 mg every 4 hours p.r.n. for severe pain, morphine 50 mg extended release twice a day, oxycodone 10 mg every 6 hours p.r.n. for pain, we will continue Lyrica 50 mg p.o. at bedtime, Senokot, metoprolol 50 mg p.o. b.i.d., Lexapro 10 mg daily. We will add Flexeril 20 mg p.o. b.i.d., Lovenox 30 mg subcutaneously daily. MRI of the thoracic and lumbar spine, to give Dilaudid 2 mg IV prior to MRI. Discussed with the daughter Riya, discussed with Gordon Ramirez. Discussed with Dr. Dallas Denise for possible kyphoplasty. Neurology consultation, Dr. Viveros requested for weakness in lower extremity. Lizbet Phillips MD [email or web address]
[2018-08-30 07:38] LABS: HEMOGLOBIN 9.6 g/dL (12.0-16.0); MEAN CELL VOLUME 97.1 fl (80.0-105.0); MEAN CORPUSCULAR HEMOGLOBIN 30.8 pg (25.0-35.0); MEAN CORPUSCULAR HGB CONC 31.7 g/dl (31.0-37.0); MEAN PLATELET VOLUME 9.8 fl (7.0-11.0); RBC 3.12 10^6/uL (3.5-6.1); RED CELL DISTRIBUTION WIDTH 18.1 % (11.5-14.5); WHITE BLOOD COUNT 3.5 10^3/uL (4.5-11.0)
[2018-08-30] MEDS: Arformoterol 15 mcg/2 ml Inh Sol IH SCH ×2 (07:39→20:10)
[2018-08-30] MEDS: Albuterol-Ipratrop 3 mg / 0.5 (3 ml) UD IH SCH ×3 (07:39→20:10)
[2018-08-30 07:47] LABS: BLOOD UREA NITROGEN 10 mg/dL (7-21); GFR NON-AFRICAN AMERICAN > 60
[2018-08-30 08:03] LABS: INR 1.13; PARTIAL THROMBOPLASTIN TIME 35.1 Seconds (26.9-38.3); PROTHROMBIN TIME 12.8 SECONDS (9.4-12.5)
[2018-08-30 09:13] LABS: PH,URINE 5.5 (4.7-8.0); URINE BILIRUBIN SMALL (NEGATIVE); URINE BLOOD NEGATIVE (NEGATIVE); URINE GLUCOSE (UA) NEGATIVE (NEGATIVE); URINE LEUKOCYTE ESTERASE TRACE Leu/uL (NEGATIVE); URINE PROTEIN TRACE mg/dL (<30 mg/dL); URINE UROBILINOGEN 0.2 E.U./dL (<1 E.U./dL)
[2018-08-30 09:23] LABS: URINE APPEARANCE CLEAR (CLEAR); URINE COLOR YELLOW (YELLOW)
[2018-08-30 09:37] LABS: URINE AMORPHOUS SEDIMENT SMALL /hpf; URINE BACTERIA LARGE /hpf; URINE RBC 0 - 2 /hpf (0-2)
[2018-08-30] MEDS: Morphine 15 mg SR Tab PO SCH ×2 (10:18→21:01)
[2018-08-30] MEDS: Sildenafil 20 MG TAB PO SCH ×2 (10:19→17:53)
[2018-08-30] MEDS: Docusate-Senna 50 mg-8.6 mg Tab PO SCH ×2 (10:19→17:53)
[2018-08-30] MEDS ORDERED: Iodixanol 320 MG/ML 100 ML BOTTLE IV ONE (11:51)
[2018-08-30] MEDS ORDERED: Lidocaine 2% Inj (20ml) ONE (11:51)
--- NOTE | 2018-08-30 12:34 | CP.PCM.APN ---
Subjective - Date & Time of Evaluation Date of Evaluation: 08/30/18 Time of Evaluation: 09:00 - Subjective Subjective: Pt seen and examined at bedside. Still c/o back pain. Objective - Vital Signs/Intake and Output Vital Signs (last 24 hours): Temp Pulse Resp BP Pulse Ox 99.1 F 67 18 100/60 94 L 08/30/18 06:00 08/30/18 10:19 08/30/18 06:00 08/30/18 10:19 08/30/18 06:00 Intake and Output: 08/30/18 08/30/18 06:59 18:59 Intake Total 480 Balance 480 - Medications Medications: Current Medications Albuterol/Ipratropium (Duoneb 3 Mg/0.5 Mg (3 Ml) Ud) 3 ml IH [id number] [facility] Last Admin: 08/30/18 07:39 Dose: 3 ml Arformoterol Tartrate (Brovana) 15 mcg IH [id number] [facility] Last Admin: 08/30/18 07:39 Dose: 15 mcg Aspirin (Ecotrin) 81 mg PO DAILY [facility] Last Admin: 08/30/18 10:18 Dose: 81 mg Atorvastatin Calcium (Lipitor) 20 mg PO DIN [facility] Last Admin: 08/29/18 18:28 Dose: 20 mg Cyclobenzaprine HCl (Flexeril) 5 mg PO BID [facility] Last Admin: 08/30/18 10:19 Dose: 5 mg Enoxaparin Sodium (Lovenox) 30 mg SC DAILY [facility]; Protocol Last Admin: 08/29/18 09:13 Dose: 30 mg Escitalopram Oxalate (Lexapro) 10 mg PO DAILY [facility] Last Admin: 08/30/18 10:19 Dose: 10 mg Hydrochlorothiazide (Hydrodiuril) 25 mg PO DAILY [facility] Last Admin: 08/30/18 10:18 Dose: 25 mg Hydromorphone HCl (Dilaudid) 1 mg IM Q4H PRN PRN Reason: Pain, severe (8-10) Last Admin: 08/29/18 15:25 Dose: 1 mg Potassium Chloride (Potassium Chloride 10 Meq/100 Ml) 10 meq in 100 mls @ 50 mls/hr IVPB Q2H [facility] Stop: 08/30/18 16:29 Metoprolol Tartrate (Lopressor) 50 mg PO BID [facility] Last Admin: 08/30/18 10:19 Dose: 50 mg Montelukast Sodium (Singulair) 10 mg PO HS [facility] Last Admin: 08/29/18 21:04 Dose: 10 mg Morphine Sulfate (Morphine Extended Release Tab) 15 mg PO Q12 [facility] Last Admin: 08/30/18 10:18 Dose: 15 mg Oxycodone HCl (Oxycodone Immediate Release Tab) 10 mg PO Q6H PRN PRN Reason: Pain, moderate (4-7) Last Admin: 08/29/18 14:35 Dose: 10 mg Polyethylene Glycol (Miralax) 17 gm PO BID [facility] Pregabalin (Lyrica) 50 mg PO HS [facility] Last Admin: 08/29/18 21:04 Dose: 50 mg Senna/Docusate Sodium (Senokot S 50 Mg-8.6 Mg) 1 tab PO BID [facility] Last Admin: 08/30/18 10:19 Dose: 1 tab Sildenafil Citrate (Revatio) 20 mg PO BID [facility] Last Admin: 08/30/18 10:19 Dose: 20 mg - Labs Labs: 08/30/18 07:20 08/30/18 07:20 PT 12.8 SECONDS (9.4-12.5) H 08/30/18 07:45 INR 1.13 08/30/18 07:45 APTT 35.1 Seconds (26.9-38.3) 08/30/18 07:45 - Constitutional Appears: No Acute Distress - Neck Exam Neck Exam: Full ROM - Respiratory Exam Respiratory Exam: NORMAL BREATHING PATTERN - Cardiovascular Exam Cardiovascular Exam: REGULAR RHYTHM, +S1, +S2 - GI/Abdominal Exam GI & Abdominal Exam: Soft, Normal Bowel Sounds - Rectal Exam Rectal Exam: Deferred - Extremities Exam Extremities Exam: Normal Inspection - Neurological Exam Neurological Exam: Alert, Awake, Oriented x3 Assessment and Plan - Assessment and Plan (Free Text) Assessment: Pt is a 78 y.o. female admitted for back pain who was found to have severe and moderate to severe chronic compression fx at T4 and T5. Impressions Thoracic Spine MRI 08/29/18 10:00 IMPRESSION: Normal thoracic spinal cord in course caliber contour and intrinsic signal. Severe and moderate to severe chronic compression fractures are identified at T4 and T5 with posterior margins of these vertebral bodies encroaching the ventral nerve roots without significant stenosis at the respective levels. Kyphotic deformity of the thoracic spine results superimposed on C-shaped deformity. Widely patent central canal and neural foramina are identified. Plan: Possible kyhpoplasty today Will need physical therapy eval after kypho - ?tcu or kevin Pain management SW/LISS dc planning Will continue to follow
[2018-08-30] MEDS ORDERED: Midazolam 2 MG/2 ML VIAL ONE ×2 (12:39→12:54)
[2018-08-30] MEDS: Sodium Chloride 0.45% 1,000 ML IV SCH (17:46)
[2018-08-30] MEDS: POLYETHYLENE GLYCOL 3350 17 GM/Dose PACKET PO SCH (17:52)
--- NOTE | 2018-08-30 18:02 | PN ---
DATE: 08/30/2018 SUBJECTIVE: The patient is 78-year-old white female, seen and examined, lying in bed, seemed to be bit nervous, because she is going for procedure around 12 o' clock. nurse told me that she has been constipated since she is admitted. The patient is apparently 78 years old white female, who was diagnosed with CA of breast. She has right breast lumpectomy, followed by chemo. PAST MEDICAL HISTORY: She has significant past medical history of: 1. COPD. 2. History of open heart surgery. 3. Pulmonary hypertension. She had multiple falls at home. Initially, she had T5 vertebral fracture and with recent fall, she sustained T7 vertebral fracture, so the patient was evaluated by Dr. Dallas Denise and was recommended to have kyphoplasty done that she is scheduled for today. PHYSICAL EXAMINATION GENERAL: The patient is awake and alert, able to communicate, and is bit nervous, complained of constipation. VITAL SIGNS: She is afebrile, pulse 67, respirations 18, and blood pressure 100/60. LUNGS: Bilateral fair airflow. No rhonchi or crackles. HEART: S1 and S2 audible. ABDOMEN: Soft and nontender. No rebound. No guarding. She has paraspinal discomfort in mid thoracic and lower back area. EXTREMITIES: Bilateral leg, no edema. LABORATORY DATA: WBC 3.5, hemoglobin 9.6, hematocrit 30, and platelet 249. Chemistry: Sodium 136, potassium 3.2, chloride 104, CO2 of 28, BUN 10, creatinine 0.8, and blood sugar of 94. MRI of the thoracic spine shows anterior wedge compression fracture of T5 and T7 with minimal retropulsion of the procedure of both of the segments. No evidence of canal stenosis. ASSESSMENT: 1. Status post fall. 2. Breast cancer, status post chemotherapy. 3. Pulmonary hypertension. 4. Chronic obstructive pulmonary disease. 5. Constipation. 6. Hypokalemia. 7. Chronic anemia. PLAN: The patient is currently on Brovana. She is getting analgesics. She will be given one dose of Dulcolax suppository. We will start her on MiraLax, continue analgesics. Dr. Phillips will follow up the patient in a.m. Charla Inman MD [facility] # [id number]
--- NOTE | 2018-08-30 18:39 | VASCULAR ---
PROCEDURE: 1. T7 kyphoplasty and biopsy 2. T5 kyphoplasty HISTORY: Severe, refractory back pain. Unresponsive to bed rest and analgesics. Acute T5 and T7 compression fractures on MRI. History breast carcinoma PHYSICIAN(S): Dallas Denise MD. TECHNIQUE: he relative risks and indications of the procedure were explained to the patient and informed written consent obtained. The patient was placed prone on the arteriography table and the thoracolumbar spine prepped and draped in the usual sterile fashion. Conscious sedation and monitoring were provided throughout the procedure by a nurse. The T7 vertebral body was carefully localized with fluoroscopy. The skin and soft tissues were anesthetized with 1% Xylocaine. Under direct fluoroscopic guidance, a right transpedicular bone needle was placed into the posterior aspect of the T7 vertebral body. It was directed medially. A core biopsy of the T7 vertebral body was performed to evaluate for malignancy. A 10 mm bone balloon was inflated in the mid T7 vertebral body. Inflated to 3.5 cc. The balloon was removed an 1.5 cc of barium-impregnated PMMA cement placed in the T7 vertebral body. There was a small amount of extravasation posteriorly which limit the amount of cement that could be placed. Next the T5 vertebral body was localized with fluoroscopy. A left transpedicular approach was selected and a bone needle advanced into the posterior medial aspect of the T5 vertebral body. A 10 mm bone balloon was inflated in the mid T5 vertebral body. The balloon was removed and 1.5 cc of barium-impregnated PMMA cement placed in the T5 vertebral body. The bone needles were removed and hemostasis obtained. The patient tolerated the procedure well. IMPRESSION: 1. Fluoroscopically guided T7 kyphoplasty and biopsy 2. Fluoroscopically guided T5 kyphoplasty.
[2018-08-31] MEDS: Albuterol-Ipratrop 3 mg / 0.5 (3 ml) UD IH SCH ×4 (04:40→19:57)
[2018-08-31] MEDS: Sodium Chloride 0.45% 1,000 ML IV SCH (05:51)
[2018-08-31 07:27] LABS: ALB/GLOB RATIO 1.1 (1.1-1.8); ALBUMIN 2.3 g/dL (3.0-4.8); ALT/SGPT 33 U/L (7-56); AST/SGOT 25 U/L (14-36); BLOOD UREA NITROGEN 8 mg/dL (7-21); CALCIUM 8.2 mg/dL (8.4-10.5); GFR NON-AFRICAN AMERICAN > 60
[2018-08-31] MEDS: Arformoterol 15 mcg/2 ml Inh Sol IH SCH ×2 (08:00→19:57)
[2018-08-31] MEDS: POLYETHYLENE GLYCOL 3350 17 GM/Dose PACKET PO SCH ×2 (10:21→19:04)
[2018-08-31] MEDS: Enoxaparin 30 mg Syringe SC SCH (10:23)
[2018-08-31] MEDS: Morphine 15 mg SR Tab PO SCH ×2 (10:29→21:33)
[2018-08-31] MEDS: Sildenafil 20 MG TAB PO SCH ×2 (10:30→19:05)
[2018-08-31] MEDS: Docusate-Senna 50 mg-8.6 mg Tab PO SCH ×2 (11:08→19:03)
[2018-08-31] MEDS: oxyCODONE 10 mg Immediate Release Tab PO PRN (14:41)
--- NOTE | 2018-08-31 23:32 | CP.PCM.PN ---
Subjective - Date & Time of Evaluation Date of Evaluation: 08/31/18 Time of Evaluation: 08:00 - Subjective Subjective: Comfortable in bed. Pain decreased after typhoplasty. No ambulating. C/o constipation. Urine culture growing gram negative rods. No fever. Objective - Vital Signs/Intake and Output Vital Signs (last 24 hours): Temp Pulse Resp BP Pulse Ox 98.3 F 69 18 104/58 L 98 08/31/18 23:13 08/31/18 23:13 08/31/18 23:13 08/31/18 23:13 08/31/18 23:13 Intake and Output: 08/31/18 09/01/18 18:59 06:59 Intake Total 240 Balance 240 - Medications Medications: Current Medications Albuterol/Ipratropium (Duoneb 3 Mg/0.5 Mg (3 Ml) Ud) 3 ml IH [id number] [facility] Last Admin: 08/31/18 19:57 Dose: 3 ml Arformoterol Tartrate (Brovana) 15 mcg IH [id number] [facility] Last Admin: 08/31/18 19:57 Dose: 15 mcg Aspirin (Ecotrin) 81 mg PO DAILY [facility] Last Admin: 08/31/18 10:30 Dose: 81 mg Atorvastatin Calcium (Lipitor) 20 mg PO DIN [facility] Last Admin: 08/31/18 19:03 Dose: 20 mg Cyclobenzaprine HCl (Flexeril) 5 mg PO BID [facility] Last Admin: 08/31/18 19:03 Dose: 5 mg Enoxaparin Sodium (Lovenox) 30 mg SC DAILY [facility]; Protocol Last Admin: 08/31/18 10:23 Dose: 30 mg Escitalopram Oxalate (Lexapro) 10 mg PO DAILY [facility] Last Admin: 08/31/18 10:29 Dose: 10 mg Hydrochlorothiazide (Hydrodiuril) 25 mg PO DAILY [facility] Last Admin: 08/31/18 10:29 Dose: 25 mg Hydromorphone HCl (Dilaudid) 1 mg IM Q4H PRN PRN Reason: Pain, severe (8-10) Last Admin: 08/29/18 15:25 Dose: 1 mg Ceftriaxone Sodium (Rocephin 1 Gram Ivpb) 1 gm in 100 mls @ 100 mls/hr IVPB DAILY [facility]; Protocol Metoprolol Tartrate (Lopressor) 50 mg PO BID [facility] Last Admin: 08/31/18 19:06 Dose: 50 mg Montelukast Sodium (Singulair) 10 mg PO HS [facility] Last Admin: 08/31/18 21:34 Dose: 10 mg Morphine Sulfate (Morphine Extended Release Tab) 15 mg PO Q12 [facility] Last Admin: 08/31/18 21:33 Dose: 15 mg Ondansetron HCl (Zofran Inj) 4 mg IVP Q6H PRN PRN Reason: Nausea/Vomiting Oxycodone HCl (Oxycodone Immediate Release Tab) 10 mg PO Q6H PRN PRN Reason: Pain, moderate (4-7) Last Admin: 08/31/18 14:41 Dose: 10 mg Polyethylene Glycol (Miralax) 17 gm PO BID [facility] Last Admin: 08/31/18 19:04 Dose: Not Given Pregabalin (Lyrica) 50 mg PO [facility] Last Admin: 08/31/18 21:34 Dose: 50 mg Senna/Docusate Sodium (Senokot S 50 Mg-8.6 Mg) 1 tab PO BID [facility] Last Admin: 08/31/18 19:03 Dose: 1 tab Sildenafil Citrate (Revatio) 20 mg PO BID [facility] Last Admin: 08/31/18 19:05 Dose: 20 mg - Labs Labs: 08/30/18 07:20 08/31/18 06:30 PT 12.8 SECONDS (9.4-12.5) H 08/30/18 07:45 INR 1.13 08/30/18 07:45 APTT 35.1 Seconds (26.9-38.3) 08/30/18 07:45 - Constitutional Appears: Chronically Ill - Head Exam Head Exam: ATRAUMATIC, NORMAL INSPECTION, NORMOCEPHALIC - Eye Exam Eye Exam: Normal appearance - ENT Exam ENT Exam: Mucous Membranes Moist, Normal Exam - Neck Exam Neck Exam: Normal Inspection - Respiratory Exam Respiratory Exam: Clear to Ausculation Bilateral, NORMAL BREATHING PATTERN - Cardiovascular Exam Cardiovascular Exam: REGULAR RHYTHM, +S1, +S2 - GI/Abdominal Exam GI & Abdominal Exam: Soft, Normal Bowel Sounds - Extremities Exam Extremities Exam: Normal Inspection - Back Exam Back Exam: NORMAL INSPECTION - Neurological Exam Neurological Exam: Alert, Awake, CN II-XII Intact, Oriented x3 - Skin Skin Exam: Normal Color, Warm Assessment and Plan - Assessment and Plan (Free Text) Assessment: 1. Breast Cancer : s/p chemotherapy. radiation therapy was planned to be started right breast but she was admitted to hospital. 2. T5, T7 vertebral fracture s/p multiple falls at home. s/p kyphoplasty. pain improved. 3. continue current pain meds. 4. Lactulose 30 ml X 2 prn for constipation. 5. Urine culture - gram negative rods. Blood cultures stat. Ceftrioxone 1 gm IV stat. ID consult Dr. Mart requested. 6. DVT prophylaxis lovenox 30 mg SQ daily. 7. Bed side PT. TCU evaluation for gait improvement.
--- NOTE | 2018-08-31 23:37 | CP.PCM.HP ---
History of Present Illness - History of Present Illness History of Present Illness: DATE: 08/28/2018 HISTORY OF PRESENT ILLNESS: Ms. Ramirez is a 78-year-old female, presented to the ER with severe back pain. She was admitted in July with T5 vertebral fracture after fall in the house. She fell again a week ago as told to me by the daughter. The patient did not communicate to me that she fell again in the house. CT of the spine showed T7 vertebral fracture in addition to old T5 vertebral fracture, which she had in July. She has a underlying COPD and has been on oral steroid for a long period of time for exacerbations. She also has pulmonary hypertension, was evaluated by Dr. Welsh during last hospitalization started on sildenafil. Denies any pain. No shortness of breath. No cough with expectoration. She has breast cancer, completed chemotherapy with weekly Taxotere. She was scheduled to undergo radiation to the right breast, which has been on hold because of the hospitalization and severe back pain. PAST MEDICAL HISTORY: Breast cancer, COPD, pulmonary hypertension, chronic kidney disease, peripheral vascular disease, peripheral neuropathy, recurrent falls, GE reflux. PAST SURGICAL HISTORY: Right-sided lumpectomy, polypectomy, recent adenoma resection right-sided colon. ALLERGIES: NO KNOWN DRUG ALLERGIES. HOME MEDICATIONS: Lexapro 10 mg daily, hydrochlorothiazide 25 mg daily, Lopressor 50 mg p.o. b.i.d., amiodarone 200 mg daily, aspirin 81 mg daily, and bronchodilators inhaler. REVIEW OF SYSTEMS: As per HPI. Rest of 12-point review of systems reviewed and negative. PHYSICAL EXAMINATION: GENERAL: Complaining of back pain and acute distress due to back pain. VITAL SIGNS: Temperature 98.1, heart rate 66 per minute, respiratory rate 18 per minute, blood pressure 125/67, pulse ox 98% on room air. HEENT: Pallor positive. NECK: No lymphadenopathy. CHEST: Fair air entry present equal bilaterally. No added sounds. CARDIOVASCULAR: S1 and S2 normal. No murmur. No gallop. ABDOMEN: Soft, nontender. No hepatosplenomegaly. EXTREMITIES: No edema. CENTRAL NERVOUS SYSTEM: Alert,oriented x 3. No focal sensory motor deficit. LABORATORY DATA: White count 3.1, hemoglobin 9.6, hematocrit 30.2, platelet 244. Sodium 137, potassium 3.7, creatinine 0.6. ASSESSMENT: 1. Status post recurrent fall T5-T7 vertebral fracture. 2. Brest cancer, status post right lumpectomy, completed weekly chemotherapy. 3. Chronic obstructive pulmonary disease. 4. Pulmonary hypertension. 5. Peripheral neuropathy. 6. Chronic back pain. PLAN: She will be admitted to the hospital. We will give Dilaudid 1 mg every 4 hours p.r.n. for severe pain, morphine 50 mg extended release twice a day, oxycodone 10 mg every 6 hours p.r.n. for pain, we will continue Lyrica 50 mg p.o. at bedtime, Senokot, metoprolol 50 mg p.o. b.i.d., Lexapro 10 mg daily. We will add Flexeril 20 mg p.o. b.i.d., Lovenox 30 mg subcutaneously daily. MRI of the thoracic and lumbar spine, to give Dilaudid 2 mg IV prior to MRI. Discussed with the daughter Riya, discussed with Ms. Ramirez. Discussed with Dr. Dallas Denise for possible kyphoplasty. Neurology consultation, Dr. Viveros requested for weakness in lower extremity. Lizbet Phillips MD Present on Admission - Present on Admission Any Indicators Present on Admission: No Past Patient History - Infectious Disease Hx of Infectious Diseases: None - Past Social History Smoking Status: Never Smoked - CARDIAC Hx Cardiac Disorders: Yes Hx Congestive Heart Failure: Yes Hx Hypercholesterolemia: Yes Hx Hypertension: Yes - PULMONARY Hx Chronic Obstructive Pulmonary Disease (COPD): Yes - NEUROLOGICAL Hx Neurological Disorder: No Other/Comment: peripheral neuropathy - HEENT Hx HEENT Problems: Yes (reading glasses) Hx Cataracts: Yes (cataract sx b/l lens implant age 52) - RENAL Hx Chronic Kidney Disease: No - ENDOCRINE/METABOLIC Hx Endocrine Disorders: No - HEMATOLOGICAL/ONCOLOGICAL Hx Blood Transfusions: No Hx Blood Transfusion Reaction: No - INTEGUMENTARY Other/Comment: b/l arms multiple eccymotic areas "I bruise easily.", fell about a month ago slipped on a towel on the floor dry scab left knee surrounding skin red, fading bruises both knees from "crawling on floor when I fell", bruises both arms, redness to bottom of both feet, dry skin, redness tp sides of toes 4 & 5 both feet, redness to b/l bunyons, crooked great toes both feet, ble +1 pitting edema, red coccyx - MUSCULOSKELETAL/RHEUMATOLOGICAL Hx Arthritis: Yes - GASTROINTESTINAL Hx Gastrointestinal Disorders: Yes (reflux/colon polyp) Hx Gastroesophageal Reflux: Yes Other/Comment: pt denies colon polyps, pt had stomach polypectomy, hx gastroenteritis, recent colonoscopy 02/16/18 + large polyp - GENITOURINARY/GYNECOLOGICAL Hx Genitourinary Disorders: No - PSYCHIATRIC Hx Psychophysiologic Disorder: Yes Hx Anxiety: Yes Hx Depression: No Hx Emotional Abuse: No Hx Physical Abuse: No - SURGICAL HISTORY Hx Surgeries: Yes - ANESTHESIA Hx Anesthesia Reactions: No Hx Malignant Hyperthermia: No Meds Allergies/Adverse Reactions: Allergies Allergy/AdvReac Type Severity Reaction Status Date / Time No Known Allergies Allergy Verified 07/31/18 14:44 Results - Vital Signs Recent Vital Signs: Last Vital Signs Temp 98.3 F 08/31/18 23:13 Pulse 69 08/31/18 23:13 Resp 18 08/31/18 23:13 BP 104/58 L 08/31/18 23:13 Pulse Ox 98 08/31/18 23:13 - Labs Result Diagrams: 08/30/18 07:20 08/31/18 06:30 Labs: Laboratory Results - last 24 hr 08/31/18 08/31/18 06:30 11:30 Sodium 134 Potassium 3.0 L Chloride 105 Carbon Dioxide 25 Anion Gap 7 L BUN 8 Creatinine 0.7 Est GFR ( Amer) > 60 Est GFR (Non-Af Amer) > 60 Random Glucose 77 Calcium 8.2 L Magnesium 1.7 Total Bilirubin 1.1 AST 25 ALT 33 Alkaline Phosphatase 73 Total Protein 4.5 L Albumin 2.3 L Globulin 2.1 Albumin/Globulin Ratio 1.1
--- NOTE | 2018-08-31 23:49 | CP.PCM.PN ---
Subjective - Date & Time of Evaluation Date of Evaluation: 08/29/18 Time of Evaluation: 08:00 - Subjective Subjective: Pain back. Getting pain meds. Not asking much of oxycodone or dilaudid. MRI of back today. Kyphoplasty planned for Tuesday by Dr. Denise. Objective - Vital Signs/Intake and Output Vital Signs (last 24 hours): Temp Pulse Resp BP Pulse Ox 98.3 F 69 18 104/58 L 98 08/31/18 23:13 08/31/18 23:13 08/31/18 23:13 08/31/18 23:13 08/31/18 23:13 Intake and Output: 08/31/18 09/01/18 18:59 06:59 Intake Total 240 Balance 240 - Medications Medications: Current Medications Albuterol/Ipratropium (Duoneb 3 Mg/0.5 Mg (3 Ml) Ud) 3 ml IH [id number] [facility] Last Admin: 08/31/18 19:57 Dose: 3 ml Arformoterol Tartrate (Brovana) 15 mcg IH [id number] [facility] Last Admin: 08/31/18 19:57 Dose: 15 mcg Aspirin (Ecotrin) 81 mg PO DAILY [facility] Last Admin: 08/31/18 10:30 Dose: 81 mg Atorvastatin Calcium (Lipitor) 20 mg PO DIN [facility] Last Admin: 08/31/18 19:03 Dose: 20 mg Cyclobenzaprine HCl (Flexeril) 5 mg PO BID [facility] Last Admin: 08/31/18 19:03 Dose: 5 mg Enoxaparin Sodium (Lovenox) 30 mg SC DAILY [facility]; Protocol Last Admin: 08/31/18 10:23 Dose: 30 mg Escitalopram Oxalate (Lexapro) 10 mg PO DAILY [facility] Last Admin: 08/31/18 10:29 Dose: 10 mg Hydrochlorothiazide (Hydrodiuril) 25 mg PO DAILY [facility] Last Admin: 08/31/18 10:29 Dose: 25 mg Hydromorphone HCl (Dilaudid) 1 mg IM Q4H PRN PRN Reason: Pain, severe (8-10) Last Admin: 08/29/18 15:25 Dose: 1 mg Ceftriaxone Sodium (Rocephin 1 Gram Ivpb) 1 gm in 100 mls @ 100 mls/hr IVPB DAILY [facility]; Protocol Metoprolol Tartrate (Lopressor) 50 mg PO BID [facility] Last Admin: 08/31/18 19:06 Dose: 50 mg Montelukast Sodium (Singulair) 10 mg PO HS [facility] Last Admin: 08/31/18 21:34 Dose: 10 mg Morphine Sulfate (Morphine Extended Release Tab) 15 mg PO Q12 [facility] Last Admin: 08/31/18 21:33 Dose: 15 mg Ondansetron HCl (Zofran Inj) 4 mg IVP Q6H PRN PRN Reason: Nausea/Vomiting Oxycodone HCl (Oxycodone Immediate Release Tab) 10 mg PO Q6H PRN PRN Reason: Pain, moderate (4-7) Last Admin: 08/31/18 14:41 Dose: 10 mg Polyethylene Glycol (Miralax) 17 gm PO BID [facility] Last Admin: 08/31/18 19:04 Dose: Not Given Pregabalin (Lyrica) 50 mg PO [facility] Last Admin: 08/31/18 21:34 Dose: 50 mg Senna/Docusate Sodium (Senokot S 50 Mg-8.6 Mg) 1 tab PO BID [facility] Last Admin: 08/31/18 19:03 Dose: 1 tab Sildenafil Citrate (Revatio) 20 mg PO BID [facility] Last Admin: 08/31/18 19:05 Dose: 20 mg - Labs Labs: 08/30/18 07:20 08/31/18 06:30 PT 12.8 SECONDS (9.4-12.5) H 08/30/18 07:45 INR 1.13 08/30/18 07:45 APTT 35.1 Seconds (26.9-38.3) 08/30/18 07:45 - Constitutional Appears: Chronically Ill - Head Exam Head Exam: ATRAUMATIC, NORMAL INSPECTION, NORMOCEPHALIC - Eye Exam Eye Exam: Normal appearance - ENT Exam ENT Exam: Mucous Membranes Moist, Normal Exam - Neck Exam Neck Exam: Normal Inspection - Respiratory Exam Respiratory Exam: Clear to Ausculation Bilateral, NORMAL BREATHING PATTERN - Cardiovascular Exam Cardiovascular Exam: REGULAR RHYTHM, +S1, +S2 - GI/Abdominal Exam GI & Abdominal Exam: Soft, Normal Bowel Sounds - Extremities Exam Extremities Exam: Normal Inspection - Back Exam Back Exam: NORMAL INSPECTION - Neurological Exam Neurological Exam: Alert, Awake, Oriented x3 - Skin Skin Exam: Normal Color, Warm Assessment and Plan - Assessment and Plan (Free Text) Assessment: 1. Breast Cancer. s/p chemo. no evidence of metastatic disease. Bone scan will be ordered. Biopsy will be taken during kyphoplasty. 2. T5, T7 fracture vertebrae. kyphoplasty tomorrow. 3. Pain : MS contin 15 mg BID, oxycodone prn for moderate pain, dilaudid for severe pain. 4. hold lovenox for tomorrow. 5. labs reviewed.
[2018-09-01] MEDS: Albuterol-Ipratrop 3 mg / 0.5 (3 ml) UD IH SCH ×3 (02:01→13:39)
[2018-09-01] MEDS: cefTRIAXone 1 gm 1 GM/100 ML BAG IVPB SCH ×2 (03:27→09:44)
[2018-09-01 06:11] VITALS: RESP 20
[2018-09-01] MEDS: Arformoterol 15 mcg/2 ml Inh Sol IH SCH (07:45)
[2018-09-01] MEDS: Enoxaparin 30 mg Syringe SC SCH (09:43)
[2018-09-01] MEDS: POLYETHYLENE GLYCOL 3350 17 GM/Dose PACKET PO SCH (09:43)
[2018-09-01] MEDS: Morphine 15 mg SR Tab PO SCH (09:44)
[2018-09-01] MEDS: Docusate-Senna 50 mg-8.6 mg Tab PO SCH (09:44)
[2018-09-01] MEDS: Sildenafil 20 MG TAB PO SCH (09:46)
--- NOTE | 2018-09-01 13:20 | CP.PCM.CON ---
<Supa Husain - Last Filed: 09/01/18 13:16> History of Present Illness - History of Present Illness History of Present Illness: Infectious disease consult note: 78-year-old female with past medical history of breast cancer, COPD, CKD, pulmonary hypertension, PVD, GERD presents with severe back pain. Back in July patient had a fall and was found to have a T5 vertebral fracture. Then last week she fell once again. In the ED CT scan of the spine showed a T7 and a T5 vertebral fracturOf note patient has a history of COPD and has been on oral steroids for a prolonged period of time for exacerbations. Patient denies any urinary or fecal incontinence. ID was consulted because she was found to have a UTI on urinalysis. Patient denies any abdominal pain, nausea, vomiting, or diarrhea. Patient denies any dysuria or urgency however does complain about dark and malodorous urine. 12 point ROS performed and negative other than stated above PMH: As above PSH: Right lumpectomy and adenoma resection of the right colon Allergies: No known allergies SH denies any smoking, drinking or drugs FH: Noncontributory Review of Systems - Review of Systems All systems: reviewed and no additional remarkable complaints except Past Patient History - Infectious Disease Hx of Infectious Diseases: None - Past Social History Smoking Status: Never Smoked - CARDIAC Hx Cardiac Disorders: Yes Hx Congestive Heart Failure: Yes Hx Hypercholesterolemia: Yes Hx Hypertension: Yes - PULMONARY Hx Chronic Obstructive Pulmonary Disease (COPD): Yes - NEUROLOGICAL Hx Neurological Disorder: No Other/Comment: peripheral neuropathy - HEENT Hx HEENT Problems: Yes (reading glasses) Hx Cataracts: Yes (cataract sx b/l lens implant age 52) - RENAL Hx Chronic Kidney Disease: No - ENDOCRINE/METABOLIC Hx Endocrine Disorders: No - HEMATOLOGICAL/ONCOLOGICAL Hx Blood Transfusions: No Hx Blood Transfusion Reaction: No - INTEGUMENTARY Other/Comment: b/l arms multiple eccymotic areas "I bruise easily.", fell about a month ago slipped on a towel on the floor dry scab left knee surrounding skin red, fading bruises both knees from "crawling on floor when I fell", bruises bot h arms, redness to bottom of both feet, dry skin, redness tp sides of toes 4 & 5 both feet, redness to b/l bunyons, crooked great toes both feet, ble +1 pitting edema, red coccyx - MUSCULOSKELETAL/RHEUMATOLOGICAL Hx Arthritis: Yes - GASTROINTESTINAL Hx Gastrointestinal Disorders: Yes (reflux/colon polyp) Hx Gastroesophageal Reflux: Yes Other/Comment: pt denies colon polyps, pt had stomach polypectomy, hx gastroenteritis, recent colonoscopy 02/16/18 + large polyp - GENITOURINARY/GYNECOLOGICAL Hx Genitourinary Disorders: No - PSYCHIATRIC Hx Psychophysiologic Disorder: Yes Hx Anxiety: Yes Hx Depression: No Hx Emotional Abuse: No Hx Physical Abuse: No - SURGICAL HISTORY Hx Surgeries: Yes - ANESTHESIA Hx Anesthesia Reactions: No Hx Malignant Hyperthermia: No Meds Allergies/Adverse Reactions: Allergies Allergy/AdvReac Type Severity Reaction Status Date / Time No Known Allergies Allergy Verified 07/31/18 14:44 - Medications Medications: Current Medications Albuterol/Ipratropium (Duoneb 3 Mg/0.5 Mg (3 Ml) Ud) 3 ml IH [id number] [facility] Last Admin: 09/01/18 07:45 Dose: 3 ml Arformoterol Tartrate (Brovana) 15 mcg IH [id number] [facility] Last Admin: 09/01/18 07:45 Dose: 15 mcg Aspirin (Ecotrin) 81 mg PO DAILY [facility] Last Admin: 09/01/18 09:44 Dose: 81 mg Atorvastatin Calcium (Lipitor) 20 mg PO DIN [facility] Last Admin: 08/31/18 19:03 Dose: 20 mg Cyclobenzaprine HCl (Flexeril) 5 mg PO BID [facility] Last Admin: 09/01/18 09:44 Dose: 5 mg Enoxaparin Sodium (Lovenox) 30 mg SC DAILY [facility]; Protocol Last Admin: 09/01/18 09:43 Dose: 30 mg Escitalopram Oxalate (Lexapro) 10 mg PO DAILY [facility] Last Admin: 09/01/18 09:44 Dose: 10 mg Hydrochlorothiazide (Hydrodiuril) 25 mg PO DAILY [facility] Last Admin: 09/01/18 09:44 Dose: 25 mg Hydromorphone HCl (Dilaudid) 1 mg IM Q4H PRN PRN Reason: Pain, severe (8-10) Last Admin: 08/29/18 15:25 Dose: 1 mg Ceftriaxone Sodium (Rocephin 1 Gram Ivpb) 1 gm in 100 mls @ 100 mls/hr IVPB DAILY [facility]; Protocol Last Admin: 09/01/18 09:44 Dose: 100 mls/hr Metoprolol Tartrate (Lopressor) 50 mg PO BID [facility] Last Admin: 09/01/18 09:44 Dose: 50 mg Montelukast Sodium (Singulair) 10 mg PO [facility] Last Admin: 08/31/18 21:34 Dose: 10 mg Morphine Sulfate (Morphine Extended Release Tab) 15 mg PO Q12 [facility] Last Admin: 09/01/18 09:44 Dose: 15 mg Ondansetron HCl (Zofran Inj) 4 mg IVP Q6H PRN PRN Reason: Nausea/Vomiting Oxycodone HCl (Oxycodone Immediate Release Tab) 10 mg PO Q6H PRN PRN Reason: Pain, moderate (4-7) Last Admin: 08/31/18 14:41 Dose: 10 mg Polyethylene Glycol (Miralax) 17 gm PO BID [facility] Last Admin: 09/01/18 09:43 Dose: 17 gm Pregabalin (Lyrica) 50 mg PO [facility] Last Admin: 08/31/18 21:34 Dose: 50 mg Senna/Docusate Sodium (Senokot S 50 Mg-8.6 Mg) 1 tab PO BID [facility] Last Admin: 09/01/18 09:44 Dose: 1 tab Sildenafil Citrate (Revatio) 20 mg PO BID [facility] Last Admin: 09/01/18 09:46 Dose: 20 mg Physical Exam - Head Exam Head Exam: ATRAUMATIC, NORMOCEPHALIC - Eye Exam Eye Exam: EOMI, PERRL - ENT Exam ENT Exam: Mucous Membranes Moist - Respiratory Exam Respiratory Exam: Clear to Auscultation Bilateral. absent: Rales, Wheezes - Cardiovascular Exam Cardiovascular Exam: REGULAR RHYTHM, +S1, +S2 - GI/Abdominal Exam GI & Abdominal Exam: Normal Bowel Sounds, Soft - Extremities Exam Extremities exam: Negative for: calf tenderness, pedal edema - Back Exam Back exam: vertebral tenderness (thoracic area) - Neurological Exam Neurological exam: Alert, CN II-XII Intact - Psychiatric Exam Psychiatric exam: Normal Mood Results - Vital Signs Recent Vital Signs: Last Vital Signs Temp 97.9 F 09/01/18 06:00 Pulse 60 09/01/18 06:00 Resp 20 09/01/18 06:00 BP 118/68 09/01/18 06:00 Pulse Ox 96 09/01/18 06:00 - Labs Result Diagrams: 08/30/18 07:20 08/31/18 06:30 Assessment & Plan - Assessment and Plan (Free Text) Assessment: 78-year-old female with past medical history of breast cancer, COPD, CKD, pulmonary hypertension, PVD, GERD presents with severe back pain. s/p Kyphoplasty of T5 and T7. ID was consulted for UTI. Continue Rocephin day 2 for a total of 3 days. Follow-up septic workup and urine culture - Shows E.coli Continue to monitor for any changes Case and plan was reviewed and discussed with Dr. Levine. <Jett Levine - Last Filed: 09/01/18 16:32> Results - Vital Signs Recent Vital Signs: Last Vital Signs Temp 98 F 09/01/18 14:00 Pulse 71 09/01/18 14:00 Resp 20 09/01/18 14:00 BP 88/51 L 09/01/18 14:00 Pulse Ox 98 09/01/18 14:00 - Labs Result Diagrams: 08/30/18 07:20 08/31/18 06:30 Assessment & Plan - Assessment and Plan (Free Text) Assessment: Infectious diseases Attending Physician Attestation Patient seen and examined, discussed with medical delivery driver. I have reviewed the patient's history of present illness, past medical, social, personal and family histories, pertinent physical exam findings, course so far in this hospital admission, pertinent laboratory and imaging results. I agree with the above findings, assessment and plan. In addition, continue Rocephin day 2 for patient with E. coli UTI. Patient is S/P kyphoplasty for vertebral compression fractures.
[2018-09-01 15:13] VITALS: BP 88/51; PULSE 71; TEMP 98; O2SAT 98
--- NOTE | 2018-09-03 20:35 | CP.PCM.DIS ---
Provider - Provider Date of Admission: 08/30/18 13:30 Attending physician: Lizbet Phillips MD Primary care physician: Lizbet Phillips MD Consults: 08/28/18 15:54 Internal Medicine Consult Stat Comment: Consulting Provider: Flavio Viveros Consulting Physician: Flavio Viveros Reason for Consult: frequent falls 08/29/18 09:30 Consult [Physician Consult] Routine Comment: Consulting Provider: Dallas Denise Consulting Physician: Dallas Denise Reason for Consult: kyphoplasty 08/31/18 09:08 TCU [Evaluation for TRCU] Routine Comment: Physician Instructions: Reason For Exam: gait improvement 08/31/18 23:21 Consult [Physician Consult] Routine Comment: Consulting Provider: Tho Evans Consulting Physician: Tho Evans Reason for Consult: UTI Time Spent in preparation of Discharge (in minutes): 60 Diagnosis - Discharge Diagnosis (1) Back pain Status: Acute Hospital Course - Lab Results Lab Results: Micro Results 09/01/18 05:40 Blood Blood Culture - Preliminary NO GROWTH AFTER 48 HOURS 09/01/18 01:40 Blood Blood Culture - Preliminary NO GROWTH AFTER 48 HOURS 08/30/18 08:35 Urine,Clean Catch Urine Culture - Final Escherichia Coli Most Recent Lab Values WBC 3.5 10^3/uL (4.5-11.0) L 08/30/18 07:20 RBC 3.12 10^6/uL (3.5-6.1) L 08/30/18 07:20 Hgb 9.6 g/dL (12.0-16.0) L 08/30/18 07:20 Hct 30.3 % (36.0-48.0) L 08/30/18 07:20 MCV 97.1 fl (80.0-105.0) 08/30/18 07:20 MCH 30.8 pg (25.0-35.0) 08/30/18 07:20 MCHC 31.7 g/dl (31.0-37.0) 08/30/18 07:20 RDW 18.1 % (11.5-14.5) H 08/30/18 07:20 Plt Count 249 10^3/uL (120.0-450.0) 08/30/18 07:20 MPV 9.8 fl (7.0-11.0) 08/30/18 07:20 Neut % (Auto) 74.2 % (50.0-68.0) H 08/29/18 09:45 Lymph % (Auto) 15.8 % (22.0-35.0) L 08/29/18 09:45 Josephine % (Auto) 9.1 % (1.0-6.0) H 08/29/18 09:45 Eos % (Auto) 0.3 % (1.5-5.0) L 08/29/18 09:45 Baso % (Auto) 0.6 % (0.0-3.0) 08/29/18 09:45 Lymph # (Auto) 0.5 (1.2-3.4) L 08/29/18 09:45 Josephine # (Auto) 0.3 (0.1-0.6) 08/29/18 09:45 Eos # (Auto) 0.0 (0.0-0.7) 08/29/18 09:45 Baso # (Auto) 0.02 K/mm3 (0.0-2.0) 08/29/18 09:45 Absolute Neuts (auto) 2.45 (1.4-6.5) 08/29/18 09:45 PT 12.8 SECONDS (9.4-12.5) H 08/30/18 07:45 INR 1.13 08/30/18 07:45 APTT 35.1 Seconds (26.9-38.3) 08/30/18 07:45 Sodium 134 mmol/L (132-148) 08/31/18 06:30 Potassium 3.0 mmol/L (3.6-5.0) L 08/31/18 06:30 Chloride 105 mmol/L (98-107) 08/31/18 06:30 Carbon Dioxide 25 mmol/L (21-33) 08/31/18 06:30 Anion Gap 7 (10-20) L 08/31/18 06:30 BUN 8 mg/dL (7-21) 08/31/18 06:30 Creatinine 0.7 mg/dl (0.7-1.2) 08/31/18 06:30 Est GFR ( Amer) > 60 08/31/18 06:30 Est GFR (Non-Af Amer) > 60 08/31/18 06:30 Random Glucose 77 mg/dL (70-110) 08/31/18 06:30 Calcium 8.2 mg/dL (8.4-10.5) L 08/31/18 06:30 Magnesium 1.7 mg/dL (1.7-2.2) 08/31/18 11:30 Total Bilirubin 1.1 mg/dL (0.2-1.3) 08/31/18 06:30 AST 25 U/L (14-36) 08/31/18 06:30 ALT 33 U/L (7-56) 08/31/18 06:30 Alkaline Phosphatase 73 U/L (38-126) 08/31/18 06:30 Total Protein 4.5 g/dL (5.8-8.3) L 08/31/18 06:30 Albumin 2.3 g/dL (3.0-4.8) L 08/31/18 06:30 Globulin 2.1 gm/dL 08/31/18 06:30 Albumin/Globulin Ratio 1.1 (1.1-1.8) 08/31/18 06:30 Urine Color Yellow (YELLOW) 08/30/18 08:35 Urine Appearance Clear (CLEAR) 08/30/18 08:35 Urine pH 5.5 (4.7-8.0) 08/30/18 08:35 Ur Specific [place] >= 1.030 (1.005-1.035) 08/30/18 08:35 Urine Protein Trace mg/dL (<30 mg/dL) H 08/30/18 08:35 Urine Glucose (UA) Negative mg/dL (NEGATIVE) 08/30/18 08:35 Urine Ketones Trace mg/dL (NEGATIVE) H 08/30/18 08:35 Urine Blood Negative (NEGATIVE) 08/30/18 08:35 Urine Nitrate Positive (NEGATIVE) H 08/30/18 08:35 Urine Bilirubin Small (NEGATIVE) H 08/30/18 08:35 Urine Urobilinogen 0.2 E.U./dL (<1 E.U./dL) 08/30/18 08:35 Ur Leukocyte Esterase Trace Melania/uL (NEGATIVE) H 08/30/18 08:35 Urine RBC 0 - 2 /hpf (0-2) 08/30/18 08:35 Urine WBC 5 - 10 /hpf (0-6) H 08/30/18 08:35 Ur Epithelial Cells 4 - 5 /hpf (0-5) 08/30/18 08:35 Amorphous Sediment Small /hpf (NONE) 08/30/18 08:35 Urine Bacteria Large /hpf (NONE) 08/30/18 08:35 Urine Other Uyeast /hpf 08/30/18 08:35 - Hospital Course Hospital Course: Admitted with worsening of back pain. Found to have new T7 fracture. Had T5 fracture in Jul . She underwent kyphoplasty to T5, T7 . pain managed with IV dilaudid. transferred to TCU for gait improvement. Discharge Exam - Head Exam Head Exam: ATRAUMATIC, NORMOCEPHALIC - Eye Exam Eye Exam: Normal appearance Pupil Exam: NORMAL ACCOMODATION - ENT Exam ENT Exam: Mucous Membranes Dry - Neck Exam Neck exam: Normal Inspection - Respiratory Exam Respiratory Exam: Clear to PA & Lateral - Cardiovascular Exam Cardiovascular Exam: REGULAR RHYTHM, +S1, +S2 - GI/Abdominal Exam GI & Abdominal Exam: Normal Bowel Sounds - Extremities Exam Extremities exam: normal inspection - Back Exam Back exam: NORMAL INSPECTION - Neurological Exam Neurological exam: Alert, CN II-XII Intact, Normal Gait - Psychiatric Exam Psychiatric exam: Normal Affect - Skin Skin Exam: Dry, Normal Color Discharge Plan - Discharge Medications Prescriptions: cefTRIAXone 1 gm [Rocephin 1 gram IVPB] 1 gm IVPB DAILY 7 Days bag - Follow Up Plan Condition: STABLE Disposition: REHAB FACILITY/REHAB UNIT Patient education suggested?: Yes Instructions: Vertebroplasty and Kyphoplasty, Preventing Falls in the Older Adult, Back Pain (GEN), Vertebral Compression Fracture, Anemia Caused by Low Iron, Chronic Obstructive Pulmonary Disease (COPD), Including Emphysema Referrals: Lizbet Phillips MD [Primary Care Provider] - Dallas Denise MD [Staff Provider] -
== END 2018-09-01 15:37 | DRG 478 ==
LOC: ED 12:15 → ERH 15:48 → 5RSO 08-29 04:51 → OBSVTOIN 08-30 13:30
PROVIDERS: ADMIT Internal Medicine Medical Oncology; ATTEND Internal Medicine Medical Oncology
PROC: 0PS43ZZ Reposition Thoracic Vertebra, Percutaneous Approach (ICD-10-PCS; principal; 2018-08-30)
PROC: 0PB43ZX Excision of Thoracic Vertebra, Percutaneous Approach, Diagnostic (ICD-10-PCS; 2018-08-30)
PROC: 0PU43JZ Supplement Thoracic Vertebra with Synthetic Substitute, Percutaneous Approach (ICD-10-PCS; 2018-08-30)
PROC: 0PS43ZZ Reposition Thoracic Vertebra, Percutaneous Approach (ICD-10-PCS; 2018-08-30)
PROC: 0PU43JZ Supplement Thoracic Vertebra with Synthetic Substitute, Percutaneous Approach (ICD-10-PCS; 2018-08-30)
DX: S22.059A Unspecified fracture of T5-T6 vertebra, initial encounter for closed fracture (principal); N39.0 Urinary tract infection, site not specified; S22.069A Unspecified fracture of T7-T8 vertebra, initial encounter for closed fracture; J44.9 Chronic obstructive pulmonary disease, unspecified; I25.10 Atherosclerotic heart disease of native coronary artery without angina pectoris; I10 Essential (primary) hypertension; M54.5 Low back pain; W01.0XXA Fall on same level from slipping, tripping and stumbling without subsequent striking against object, initial encounter; I27.20 Pulmonary hypertension, unspecified; R29.6 Repeated falls; K21.9 Gastro-esophageal reflux disease without esophagitis; I73.9 Peripheral vascular disease, unspecified; G62.9 Polyneuropathy, unspecified; K59.00 Constipation, unspecified; E87.6 Hypokalemia; D64.9 Anemia, unspecified; Z92.21 Personal history of antineoplastic chemotherapy; B96.20 Unspecified Escherichia coli [E. coli] as the cause of diseases classified elsewhere; E78.00 Pure hypercholesterolemia, unspecified; G89.29 Other chronic pain; I11.0 Hypertensive heart disease with heart failure; I50.9 Heart failure, unspecified; C50.911 Malignant neoplasm of unspecified site of right female breast; Z79.82 Long term (current) use of aspirin; Z79.899 Other long term (current) drug therapy; Z86.010 Personal history of colon polyps; Z87.01 Personal history of pneumonia (recurrent); Z91.81 History of falling; Z95.1 Presence of aortocoronary bypass graft; Z90.49 Acquired absence of other specified parts of digestive tract

== ENCOUNTER 2018-09-01 15:37 | Inpatient (IN) | payer OTHER, MEDICAID ==
[2018-09-01] MEDS: POLYETHYLENE GLYCOL 3350 17 GM/Dose PACKET PO SCH (18:28)
[2018-09-01] MEDS: Sildenafil 20 MG TAB PO SCH (18:29)
[2018-09-01] MEDS: Docusate-Senna 50 mg-8.6 mg Tab PO SCH (18:30)
[2018-09-01 20:01] VITALS: BMI 23.4
[2018-09-01] MEDS ORDERED: Pneumococcal 23-Valent Vaccine IM ONE (20:01)
[2018-09-01] MEDS ORDERED: Influenza Vaccine 60 mcg/0.5 mL SYR (4YR UP) IM ONE (20:01)
[2018-09-01] MEDS: Albuterol-Ipratrop 3 mg / 0.5 (3 ml) UD IH SCH (21:00)
[2018-09-01] MEDS: Arformoterol 15 mcg/2 ml Inh Sol IH SCH (21:00)
[2018-09-01] MEDS: Morphine 15 mg SR Tab PO SCH (22:01)
[2018-09-02] MEDS: Albuterol-Ipratrop 3 mg / 0.5 (3 ml) UD IH SCH ×4 (01:48→19:26)
[2018-09-02] MEDS: cefTRIAXone 1 gm 1 GM/100 ML BAG IVPB SCH (05:10)
[2018-09-02] MEDS: Enoxaparin 30 mg Syringe SC SCH (05:11)
[2018-09-02 05:45] LABS: BASO # 0.01 K/mm3 (0.0-2.0); BASO % 0.3 % (0.0-3.0); EOS % 0.3 % (1.5-5.0); LYMPH # 0.4 (1.2-3.4); LYMPH % 13.7 % (22.0-35.0); MEAN CELL VOLUME 96.9 fl (80.0-105.0); MEAN CORPUSCULAR HEMOGLOBIN 30.9 pg (25.0-35.0); MEAN CORPUSCULAR HGB CONC 31.9 g/dl (31.0-37.0); MEAN PLATELET VOLUME 9.8 fl (7.0-11.0); MONO # 0.5 (0.1-0.6); MONO % 16.7 % (1.0-6.0); RBC 2.91 10^6/uL (3.5-6.1); RED CELL DISTRIBUTION WIDTH 17.3 % (11.5-14.5)
[2018-09-02 06:06] LABS: ALB/GLOB RATIO 1.1 (1.1-1.8); ALBUMIN 2.5 g/dL (3.0-4.8); ALT/SGPT 36 U/L (7-56); AST/SGOT 33 U/L (14-36); BLOOD UREA NITROGEN 10 mg/dL (7-21); CALCIUM 8.8 mg/dL (8.4-10.5); GFR NON-AFRICAN AMERICAN > 60
[2018-09-02] MEDS: Sildenafil 20 MG TAB PO SCH ×2 (09:33→17:15)
[2018-09-02] MEDS: Morphine 15 mg SR Tab PO SCH ×2 (09:38→21:44)
[2018-09-02] MEDS: Arformoterol 15 mcg/2 ml Inh Sol IH SCH ×2 (09:50→19:26)
[2018-09-02] MEDS: POLYETHYLENE GLYCOL 3350 17 GM/Dose PACKET PO SCH ×2 (10:08→17:15)
[2018-09-02] MEDS: Docusate-Senna 50 mg-8.6 mg Tab PO SCH ×2 (10:09→17:14)
--- NOTE | 2018-09-02 16:50 | CP.PCM.CON ---
History of Present Illness - History of Present Illness History of Present Illness: 78 year old female with PMH of COPD, chronic renal failure, COPD, pulmonary HTN, PVD, GERD, initially came in to [facility] because of back pain and was found to have vertebral compression fractures in the thoracic areas. She underwent kyphopl asty. Initial work up also revealed UTI with E. coli and is currently on Rocephin. She is now transferred to [facility] for continued medical therapy and physical therapy. She is currently comfortable on a chair, no fevers, no chills, no nausea or vomiting, no dysuria and her urine which was smelling differently is not as foul-smelling as per the patient, no hematuria, no abdominal pain, no headache or dizziness, no diarrhea. Infectious diseases consult is requested to continue her antibiotic therapy. Review of Systems - Review of Systems All systems: reviewed and no additional remarkable complaints except (as per HPI) Past Patient History - Infectious Disease Hx of Infectious Diseases: None - Past Social History Smoking Status: Never Smoked - CARDIAC Hx Cardiac Disorders: Yes Hx Congestive Heart Failure: Yes Hx Hypercholesterolemia: Yes Hx Hypertension: Yes - PULMONARY Hx Chronic Obstructive Pulmonary Disease (COPD): Yes - NEUROLOGICAL Hx Neurological Disorder: No Other/Comment: peripheral neuropathy - HEENT Hx HEENT Problems: Yes (reading glasses) Hx Cataracts: Yes (cataract sx b/l lens implant age 52) - RENAL Hx Chronic Kidney Disease: No - ENDOCRINE/METABOLIC Hx Endocrine Disorders: No - HEMATOLOGICAL/ONCOLOGICAL Hx Blood Transfusions: No Hx Blood Transfusion Reaction: No - INTEGUMENTARY Other/Comment: b/l arms multiple eccymotic areas "I bruise easily.", fell about a month ago slipped on a towel on the floor dry scab left knee surrounding skin red, fading bruises both knees from "crawling on floor when I fell", bruises both arms, redness to bottom of both feet, dry skin, redness tp sides of toes 4 & 5 both feet, redness to b/l bunyons, crooked great toes both feet, ble +1 pitting edema, red coccyx - MUSCULOSKELETAL/RHEUMATOLOGICAL Hx Falls: Yes (recent fall) - GASTROINTESTINAL Hx Gastrointestinal Disorders: No (GERD RIGHT HEMICOLECTOMY,GASTROENETERITIS,CONSTIPATION) - GENITOURINARY/GYNECOLOGICAL Hx Genitourinary Disorders: No (UTI) Hx Reproductive Disorders: No - PSYCHIATRIC Hx Psychophysiologic Disorder: Yes Hx Anxiety: Yes Hx Depression: No Hx Emotional Abuse: No Hx Physical Abuse: No - SURGICAL HISTORY Hx Surgeries: Yes - ANESTHESIA Hx Anesthesia Reactions: No Hx Malignant Hyperthermia: No Meds Allergies/Adverse Reactions: Allergies Allergy/AdvReac Type Severity Reaction Status Date / Time No Known Allergies Allergy Verified 09/01/18 19:04 - Medications Medications: Current Medications Albuterol/Ipratropium (Duoneb 3 Mg/0.5 Mg (3 Ml) Ud) 3 ml IH [id number] [facility]; Protocol Last Admin: 09/02/18 01:48 Dose: 3 ml Arformoterol Tartrate (Brovana) 15 mcg IH [id number] [facility]; Protocol Last Admin: 09/01/18 21:00 Dose: 15 mcg Aspirin (Ecotrin) 81 mg PO 0800 [facility]; Protocol Atorvastatin Calcium (Lipitor) 20 mg PO DIN [facility]; Protocol Last Admin: 09/01/18 18:29 Dose: 20 mg Cyclobenzaprine HCl (Flexeril) 5 mg PO BID [facility] Last Admin: 09/01/18 18:27 Dose: 5 mg Enoxaparin Sodium (Lovenox) 30 mg SC 0600 [facility]; Protocol Last Admin: 09/02/18 05:11 Dose: 30 mg Escitalopram Oxalate (Lexapro) 10 mg PO DAILY [facility] Hydrochlorothiazide (Hydrodiuril) 25 mg PO DAILY [facility]; Protocol Ceftriaxone Sodium (Rocephin 1 Gram Ivpb) 1 gm in 100 mls @ 100 mls/hr IVPB 0 600 [facility]; Protocol Last Admin: 09/02/18 05:10 Dose: 100 mls/hr Metoprolol Tartrate (Lopressor) 50 mg PO 0800,1600 [facility]; Protocol Montelukast Sodium (Singulair) 10 mg PO HS [facility]; Protocol Last Admin: 09/01/18 22:01 Dose: 10 mg Morphine Sulfate (Morphine Extended Release Tab) 15 mg PO Q12 [facility]; Protocol Last Admin: 09/01/18 22:01 Dose: 15 mg Ondansetron HCl (Zofran Inj) 4 mg IVP Q6H PRN; Protocol PRN Reason: Nausea/Vomiting Oxycodone HCl (Oxycodone Immediate Release Tab) 10 mg PO Q4H PRN; Protocol PRN Reason: Pain, moderate (4-7) Polyethylene Glycol (Miralax) 17 gm PO BID [facility]; Protocol Last Admin: 09/01/18 18:28 Dose: Not Given Pregabalin (Lyrica) 50 mg PO HS [facility]; Protocol Last Admin: 09/01/18 22:01 Dose: 50 mg Senna/Docusate Sodium (Senokot S 50 Mg-8.6 Mg) 1 tab PO BID [facility]; Protocol Last Admin: 09/01/18 18:30 Dose: 1 tab Sildenafil Citrate (Revatio) 20 mg PO BID [facility]; Protocol Last Admin: 09/01/18 18:29 Dose: 20 mg Physical Exam - Constitutional Appears: Non-toxic, No Acute Distress, Chronically Ill - Head Exam Head Exam: NORMAL INSPECTION - Neck Exam Neck exam: Negative for: Lymphadenopathy, Meningismus - Respiratory Exam Respiratory Exam: Decreased Breath Sounds - Cardiovascular Exam Cardiovascular Exam: +S1, +S2 - GI/Abdominal Exam GI & Abdominal Exam: Soft. absent: Tenderness Results - Vital Signs Recent Vital Signs: Last Vital Signs Temp 98 F 09/01/18 19:44 Pulse 72 09/01/18 19:44 Resp 20 09/01/18 19:44 BP 95/55 L 09/01/18 19:44 Pulse Ox - Labs Result Diagrams: 09/02/18 05:30 09/02/18 05:30 Labs: Laboratory Results - last 24 hr 09/02/18 09/02/18 05:30 05:30 WBC 3.0 L RBC 2.91 L Hgb 9.0 L Hct 28.2 L MCV 96.9 MCH 30.9 MCHC 31.9 RDW 17.3 H Plt Count 176 MPV 9.8 Neut % (Auto) 69.0 H Lymph % (Auto) 13.7 L [place] % (Auto) 16.7 H Eos % (Auto) 0.3 L Baso % (Auto) 0.3 Lymph # (Auto) 0.4 L [place] # (Auto) 0.5 Eos # (Auto) 0.0 Baso # (Auto) 0.01 Absolute Neuts (auto) 2.06 Sodium 133 Potassium 3.2 L Chloride 103 Carbon Dioxide 26 Anion Gap 8 L BUN 10 Creatinine 0.8 Est GFR ( Amer) > 60 Est GFR (Non-Af Amer) > 60 Random Glucose 94 Calcium 8.8 Total Bilirubin 0.8 AST 33 ALT 36 Alkaline Phosphatase 84 Total Protein 4.7 L Albumin 2.5 L Globulin 2.2 Albumin/Globulin Ratio 1.1 Assessment & Plan - Assessment and Plan (Free Text) Plan: Assessment UTI with E. coli, uncomplicated. probably cystitis thoracic vertebral compression fractures S/P kyphoplasty POD #2 COPD chronic renal failure pulmonary HTN PVD GERD Plan continue Rocephin day 3 for 3-5 days will continue to monitor clinically
--- NOTE | 2018-09-02 18:03 | HP ---
DATE OF EXAM: 09/02/2018 HISTORY OF PRESENT ILLNESS: The patient is a 78-year-old, the patient of Dr. Phillips, covering for her. The patient came to emergency room after she had two falls at home. The patient came ER on 08/28, with intractable back pain and after fall. She was admitted in July, at that point she was found to have vertebral fracture of T5 and she was noted to have another fracture, so Dr. Dallas Denise was contacted and the patient underwent kyphoplasty. PAST MEDICAL HISTORY: She also has significant past medical history of: 1. COPD, has been on steroid intermittently. 2. Pulmonary hypertension. 3. History of CA breast, finished chemotherapy. She was on weekly Taxotere. According to Dr. Phillips, the patient was scheduled to have outpatient radiation therapy done. 4. History of peripheral vascular disease. 5. Neuropathy. 6. Peptic ulcer disease. PAST SURGICAL HISTORY: Significant for right breast lumpectomy, recent partial colectomy. ALLERGIES: SHE IS NOT ALLERGIC TO ANY MEDICATIONS. MEDICATIONS AT HOME: She is on: 1. Lexapro 10 mg daily. 2. Aspirin 81 daily. 3. Amiodarone 200 daily. 4. Lopressor 50 mg twice a day. 5. Hydrochlorothiazide. SOCIAL HISTORY: She has history of smoking, but quit couple of years ago. Socially drinks. PHYSICAL EXAMINATION GENERAL: She is awake and alert, complain of back being sore. VITAL SIGNS: She is afebrile, pulse 72, respirations 18, blood pressure 101/60. LUNGS: Bilateral fair airflow. No rhonchi or crackle. HEART: S1 and S2 audible. ABDOMEN: Soft, nontender. No rebound. No guarding. NEUROLOGIC: The patient is awake, alert, oriented, able to communicate. LABORATORY DATA: WBC 3.0, hemoglobin 9, hematocrit 28.2, platelet of 176. Chemistry; sodium 133, potassium 3.2, chloride 103, CO2 of 26, BUN 10, creatinine 0.8, blood sugar of 94. ASSESSMENT AND PLAN: 1. Status post fall, multiple compression fracture, status post kyphoplasty. 2. History of cancer of breast. 3. Chronic obstructive pulmonary disease. 4. Pulmonary hypertension. 5. Peptic ulcer disease. PLAN: So, the plan is currently, the patient is on Brovana. She is getting nebulizer treatment. She is on aspirin 81 mg daily. She is on hydrochlorothiazide. She is on Lexapro. She is on statin and metoprolol. She is on DVT prophylaxis. She is on laxative. She is on morphine 50 mg every 12 hours and 10 mg as needed. She is on Revatio for pulmonary hypertension. Her MAR reviewed, found to be appropriate. Continue physical therapy and analgesic as needed. Charla Inman MD
[2018-09-03] MEDS: Albuterol-Ipratrop 3 mg / 0.5 (3 ml) UD IH SCH ×4 (02:50→21:17)
[2018-09-03] MEDS: Enoxaparin 30 mg Syringe SC SCH (05:41)
[2018-09-03] MEDS: cefTRIAXone 1 gm 1 GM/100 ML BAG IVPB SCH (05:41)
[2018-09-03] MEDS: oxyCODONE 10 mg Immediate Release Tab PO PRN ×2 (06:48→13:55)
[2018-09-03] MEDS: Arformoterol 15 mcg/2 ml Inh Sol IH SCH ×2 (07:31→21:16)
[2018-09-03] MEDS: POLYETHYLENE GLYCOL 3350 17 GM/Dose PACKET PO SCH ×2 (09:56→17:16)
[2018-09-03] MEDS: Docusate-Senna 50 mg-8.6 mg Tab PO SCH ×2 (09:56→17:16)
[2018-09-03] MEDS: Sildenafil 20 MG TAB PO SCH ×2 (09:57→17:47)
[2018-09-03] MEDS: Morphine 15 mg SR Tab PO SCH ×2 (09:57→21:39)
--- NOTE | 2018-09-03 20:33 | PN ---
DATE: 09/03/2018 SUBJECTIVE: The patient is a 78-year-old, seen and examined, sitting in chair, came back from therapy, complained of shortness of breath. Eating and tolerating. PHYSICAL EXAMINATION: VITAL SIGNS: She is afebrile, pulse 76, respirations 20, blood pressure 104/51. LUNGS: Bilateral fair air flow. No rhonchi or crackle. HEART: S1 and S2 audible. ABDOMEN: Soft, nontender, no rebound, no guarding. NEUROLOGIC: The patient is awake, alert, oriented. Able to communicate. Moves all extremities. No focal deficits. ASSESSMENT: 1. History of carcinoma of the breast. 2. Status post right lumpectomy. 3. Alopecia, secondary to chemotherapy. 4. Chronic obstructive pulmonary disease. 5. Compression fracture of T5 and T7 status post kyphoplasty. 6. Hyperlipidemia. PLAN: We will continue the patent on current medications. reviewed, found to be appropriate. The patient is currently on Rocephin. She is also on Revatio for pulmonary hypertension. Will continue all above medications. Dr. Phillips will follow up patient. Charla Inman MD
--- NOTE | 2018-09-03 21:42 | PN ---
DATE: 09/03/2018 SUBJECTIVE: The patient is seen earlier today. No acute distress. Nontoxic. No fevers. PHYSICAL EXAMINATION: VITAL SIGNS: Temperature is 98, blood pressure is 100/60, respiratory rate of 16. HEENT: Unremarkable. NECK: Supple. LUNGS: Have decreased breath sounds. HEART: Normal S1, S2. ABDOMEN: Soft. LABORATORY DATA: Reveals a white count of 3000, hemoglobin of 9, BUN of 10, creatinine 0.8. Microbiology is noted. Review of cultures are noted. ASSESSMENT AND PLAN: This is a 78-year-old female, seen earlier today in room 327 with urinary tract infection with Escherichia coli complicated probable cystitis, thoracic vertebral compression fracture status post kyphoplasty, postprocedure day #3, chronic obstructive lung disease, renal failure, pulmonary hypertension, on Rocephin, day #4 of 5 days. Review of orders reveals the patient's Rocephin is active. We will follow with you. Tho Evans MD
[2018-09-04] MEDS: Albuterol-Ipratrop 3 mg / 0.5 (3 ml) UD IH SCH ×4 (04:33→21:25)
[2018-09-04] MEDS: cefTRIAXone 1 gm 1 GM/100 ML BAG IVPB SCH (05:38)
[2018-09-04] MEDS: Enoxaparin 30 mg Syringe SC SCH (05:38)
[2018-09-04] MEDS: Arformoterol 15 mcg/2 ml Inh Sol IH SCH ×2 (07:41→21:24)
[2018-09-04] MEDS ORDERED: Morphine 15 mg SR Tab PO SCH (08:15)
[2018-09-04] MEDS: POLYETHYLENE GLYCOL 3350 17 GM/Dose PACKET PO SCH ×2 (09:11→17:32)
[2018-09-04] MEDS: Docusate-Senna 50 mg-8.6 mg Tab PO SCH ×2 (09:11→17:32)
[2018-09-04] MEDS: Morphine 30 mg SR Tab PO SCH ×3 (09:14→21:51)
--- NOTE | 2018-09-04 09:47 | PN ---
DATE: 09/04/2018 SUBJECTIVE: She is comfortable in bed in no acute distress. Still complaining of back pain asking for Lidoderm patch. Discussed with the staff nurse, she asked for oxycodone twice during past 24 hours. She is currently on MS-Contin 15 mg b.i.d. Moving the bowels. Participating in physical therapy, can walk with the walker. REVIEW OF SYSTEMS: As per HPI. Rest of 12-point review of systems reviewed and negative. PHYSICAL EXAMINATION: GENERAL: Comfortable in bed in no acute distress. VITAL SIGNS: Temperature 98.7, heart rate 80 per minute, blood pressure 120/70 and respiratory rate 18 per minute. HEENT: No pallor. NECK: No lymphadenopathy. CHEST: Air entry present equal bilaterally. No added sound. CARDIOVASCULAR: S1 and S2 normal. No murmur. No gallop. ABDOMEN: Soft and nontender. No hepatosplenomegaly. EXTREMITIES: No edema. HEAD OF MERCHANDISE BUYING: Alert and oriented x3. No focal sensory motor deficit. LABORATORY DATA: Labs reviewed. MEDICATIONS: Reviewed. ASSESSMENT AND PLAN: 1. Vertebral fracture, status post kyphoplasty, T5 and T7. 2. Breast cancer, status post chemotherapy, awaiting starting of radiation. 3. Pain, we will increase her MS-Contin to 30 mg b.i.d. Continue Senna, Colace, we did continue oxycodone p.r.n. She has urinary tract infection, currently on ceftriaxone day 5 today. Discussed with the staff nurse if IV antibiotics are done to remove the port needle. Lizbet Phillips MD
[2018-09-04] MEDS: Sildenafil 20 MG TAB PO SCH ×2 (09:49→17:31)
[2018-09-04] MEDS ORDERED: Morphine 30 mg SR Tab PO SCH (10:00)
[2018-09-04] MEDS ORDERED: Potassium Chloride 20 mEq ER Tab PO SCH (10:00)
--- NOTE | 2018-09-04 10:28 | CP.PCM.PN ---
<Supa Husain - Last Filed: 09/04/18 13:58> Subjective - Date & Time of Evaluation Date of Evaluation: 09/04/18 Time of Evaluation: 07:00 - Subjective Subjective: Infectious disease progress note: Pt seen and examined at bedside. No acute events overnight. Pt c/o some back discomfort, doing well with PT. Denies any other complaints at this time 12 Point ROS performed and neg other than stated above. Objective - Vital Signs/Intake and Output Vital Signs (last 24 hours): Temp Pulse Resp BP Pulse Ox 98.1 F 84 20 109/54 L 96 09/02/18 16:00 09/04/18 07:46 09/02/18 16:00 09/04/18 07:46 09/02/18 16:00 Intake and Output: 09/04/18 09/04/18 06:59 18:59 Intake Total 420 Balance 420 - Medications Medications: Current Medications Albuterol/Ipratropium (Duoneb 3 Mg/0.5 Mg (3 Ml) Ud) 3 ml IH [id number] [facility]; Protocol Last Admin: 09/04/18 07:41 Dose: 3 ml Arformoterol Tartrate (Brovana) 15 mcg IH [id number] [facility]; Protocol Last Admin: 09/04/18 07:41 Dose: 15 mcg Aspirin (Ecotrin) 81 mg PO 0800 [facility]; Protocol Last Admin: 09/04/18 08:03 Dose: 81 mg Atorvastatin Calcium (Lipitor) 20 mg PO DIN [facility]; Protocol Last Admin: 09/03/18 17:48 Dose: 20 mg Cyclobenzaprine HCl (Flexeril) 5 mg PO BID [facility] Last Admin: 09/04/18 09:15 Dose: 5 mg Enoxaparin Sodium (Lovenox) 30 mg SC 0600 [facility]; Protocol Last Admin: 09/04/18 05:38 Dose: 30 mg Escitalopram Oxalate (Lexapro) 10 mg PO DAILY [facility] Last Admin: 09/04/18 09:15 Dose: 10 mg Hydrochlorothiazide (Hydrodiuril) 25 mg PO DAILY [facility]; Protocol Last Admin: 09/04/18 09:15 Dose: 25 mg Ceftriaxone Sodium (Rocephin 1 Gram Ivpb) 1 gm in 100 mls @ 100 mls/hr IVPB 0600 [facility]; Protocol Last Admin: 09/04/18 05:38 Dose: 100 mls/hr Metoprolol Tartrate (Lopressor) 50 mg PO 0800,1600 [facility]; Protocol Last Admin: 09/04/18 07:46 Dose: Not Given Montelukast Sodium (Singulair) 10 mg PO HS [facility]; Protocol Last Admin: 09/03/18 21:41 Dose: 10 mg Morphine Sulfate (Morphine Extended Release Tab) 30 mg PO Q12 [facility] Last Admin: 09/04/18 09:51 Dose: Not Given Ondansetron HCl (Zofran Inj) 4 mg IVP Q6H PRN; Protocol PRN Reason: Nausea/Vomiting Oxycodone HCl (Oxycodone Immediate Release Tab) 10 mg PO Q4H PRN; Protocol PRN Reason: Pain, moderate (4-7) Last Admin: 09/03/18 13:55 Dose: 10 mg Polyethylene Glycol (Miralax) 17 gm PO BID [facility]; Protocol Last Admin: 09/04/18 09:11 Dose: Not Given Potassium Chloride (K-Dur 20 Meq Er Tab) 20 meq PO DAILY [facility] Last Admin: 09/04/18 09:16 Dose: 20 meq Pregabalin (Lyrica) 50 mg PO HS [facility]; Protocol Last Admin: 09/03/18 21:39 Dose: 50 mg Senna/Docusate Sodium (Senokot S 50 Mg-8.6 Mg) 1 tab PO BID [facility]; Protocol Last Admin: 09/04/18 09:11 Dose: Not Given Sildenafil Citrate (Revatio) 20 mg PO BID [facility]; Protocol Last Admin: 09/04/18 09:49 Dose: 20 mg - Labs Labs: 09/02/18 05:30 09/02/18 05:30 - Constitutional Appears: No Acute Distress - Head Exam Head Exam: ATRAUMATIC, NORMOCEPHALIC - Eye Exam Eye Exam: EOMI - ENT Exam ENT Exam: Mucous Membranes Moist - Respiratory Exam Respiratory Exam: Clear to Ausculation Bilateral. absent: Rales, Wheezes - Cardiovascular Exam Cardiovascular Exam: REGULAR RHYTHM, +S1, +S2 - GI/Abdominal Exam GI & Abdominal Exam: Soft. absent: Tenderness - Extremities Exam Extremities Exam: absent: Calf Tenderness, Pedal Edema - Back Exam Back Exam: paraspinal tenderness (mild) - Neurological Exam Neurological Exam: Alert, Awake - Psychiatric Exam Psychiatric exam: Normal Mood Assessment and Plan - Assessment and Plan (Free Text) Assessment: 78F presents with thoracic vertebral compression fractures S/P kyphoplasty, found to have a UTI with E. coli, uncomplicated. probably cystitis D/c Rocephin. Completed 4 day course F/u septic work up will continue to monitor clinically Case and plan was reviewed and discussed with Dr Levine. <Jett Levine - Last Filed: 09/04/18 14:39> Objective - Vital Signs/Intake and Output Vital Signs (last 24 hours): Temp Pulse Resp BP Pulse Ox 98.1 F 84 20 109/54 L 96 09/02/18 16:00 09/04/18 07:46 09/02/18 16:00 09/04/18 07:46 09/02/18 16:00 Intake and Output: 09/04/18 09/04/18 06:59 18:59 Intake Total 420 Balance 420 - Medications Medications: Current Medications Albuterol/Ipratropium (Duoneb 3 Mg/0.5 Mg (3 Ml) Ud) 3 ml IH [id number] [facility]; Protocol Last Admin: 09/04/18 13:26 Dose: 3 ml Arformoterol Tartrate (Brovana) 15 mcg IH [id number] [facility]; Protocol Last Admin: 09/04/18 07:41 Dose: 15 mcg Aspirin (Ecotrin) 81 mg PO 0800 [facility]; Protocol Last Admin: 09/04/18 08:03 Dose: 81 mg Atorvastatin Calcium (Lipitor) 20 mg PO DIN [facility]; Protocol Last Admin: 09/03/18 17:48 Dose: 20 mg Cyclobenzaprine HCl (Flexeril) 5 mg PO BID [facility] Last Admin: 09/04/18 09:15 Dose: 5 mg Enoxaparin Sodium (Lovenox) 30 mg SC 0600 [facility]; Protocol Last Admin: 09/04/18 05:38 Dose: 30 mg Escitalopram Oxalate (Lexapro) 10 mg PO DAILY [facility] Last Admin: 09/04/18 09:15 Dose: 10 mg Hydrochlorothiazide (Hydrodiuril) 25 mg PO DAILY [facility]; Protocol Last Admin: 09/04/18 09:15 Dose: 25 mg Metoprolol Tartrate (Lopressor) 50 mg PO 0800,1600 [facility]; Protocol Last Admin: 09/04/18 07:46 Dose: Not Given Montelukast Sodium (Singulair) 10 mg PO HS [facility]; Protocol Last Admin: 09/03/18 21:41 Dose: 10 mg Morphine Sulfate (Morphine Extended Release Tab) 30 mg PO Q12 [facility] Last Admin: 09/04/18 09:51 Dose: Not Given Ondansetron HCl (Zofran Inj) 4 mg IVP Q6H PRN; Protocol PRN Reason: Nausea/Vomiting Oxycodone HCl (Oxycodone Immediate Release Tab) 10 mg PO Q4H PRN; Protocol PRN Reason: Pain, moderate (4-7) Last Admin: 09/03/18 13:55 Dose: 10 mg Polyethylene Glycol (Miralax) 17 gm PO BID [facility]; Protocol Last Admin: 09/04/18 09:11 Dose: Not Given Potassium Chloride (K-Dur 20 Meq Er Tab) 20 meq PO 0800 [facility] Pregabalin (Lyrica) 50 mg PO HS [facility]; Protocol Last Admin: 09/03/18 21:39 Dose: 50 mg Senna/Docusate Sodium (Senokot S 50 Mg-8.6 Mg) 1 tab PO BID [facility]; Protocol Last Admin: 09/04/18 09:11 Dose: Not Given Sildenafil Citrate (Revatio) 20 mg PO BID [facility]; Protocol Last Admin: 09/04/18 09:49 Dose: 20 mg - Labs Labs: 09/02/18 05:30 09/02/18 05:30 Assessment and Plan - Assessment and Plan (Free Text) Assessment: Infectious diseases Attending Physician Attestation Patient seen and examined, discussed with biomedical engineering supervisor. I have reviewed the patient's history of present illness, past medical, social, personal and family histories, pertinent physical exam findings, course so far in this hospital admission, pertinent laboratory and imaging results. I agree with the above findings, assessment and plan. In addition, we can d/c Rocephin since we have completed treatment for E. coli uncomplicated UTI.
[2018-09-05] MEDS: Enoxaparin 30 mg Syringe SC SCH (05:51)
[2018-09-05] MEDS: Albuterol-Ipratrop 3 mg / 0.5 (3 ml) UD IH SCH ×3 (07:41→20:10)
[2018-09-05] MEDS: Arformoterol 15 mcg/2 ml Inh Sol IH SCH ×2 (07:41→20:10)
[2018-09-05] MEDS: Potassium Chloride 20 mEq ER Tab PO SCH (08:05)
[2018-09-05] MEDS: Sildenafil 20 MG TAB PO SCH ×2 (10:07→17:34)
[2018-09-05] MEDS: POLYETHYLENE GLYCOL 3350 17 GM/Dose PACKET PO SCH ×2 (10:07→17:34)
[2018-09-05] MEDS: Docusate-Senna 50 mg-8.6 mg Tab PO SCH ×2 (10:07→17:34)
[2018-09-05] MEDS: Morphine 30 mg SR Tab PO SCH ×2 (10:10→21:48)
[2018-09-05 11:20] LABS: HEMOGLOBIN 9.5 g/dL (12.0-16.0); MEAN CELL VOLUME 96.4 fl (80.0-105.0); MEAN CORPUSCULAR HEMOGLOBIN 30.7 pg (25.0-35.0); MEAN CORPUSCULAR HGB CONC 31.9 g/dl (31.0-37.0); MEAN PLATELET VOLUME 10.4 fl (7.0-11.0); RBC 3.09 10^6/uL (3.5-6.1); WHITE BLOOD COUNT 3.9 10^3/uL (4.5-11.0)
[2018-09-05 11:28] LABS: BLOOD UREA NITROGEN 10 mg/dL (7-21); GFR NON-AFRICAN AMERICAN > 60
--- NOTE | 2018-09-05 11:54 | CP.PCM.CON ---
History of Present Illness - History of Present Illness History of Present Illness: Ms Ramirez is a 78 year old female with a stage I right breast cancer. She had a scrrening mammogram on September 27, 2017 which revealed interval development of an asymmetry area in the right breast in the upper outer quadrant. A diagnostic mammogram and ultrasound on October 10, 2017 revealed a focal asymmetry in the right breast. On October 26, 2017, she had a right breast biopsy which confirmed grade 2 invasive ductal carcinoma. A CT/PET scan on November 14, 2017 revealed increased FDG uptake in the right colon. She ultimately had resection of the lesion in the colon which revealed an adenoma. On January 12, 2018, she had right breast lumpectomy and sentinel node biopsy which revealed grade 2 invasive ductal carcinoma 0.8 x 0.4 x 0.4cm with no lymph nodes involved. She had oncotype dx testing which showed a high recurrence score. She received ACT chemotherapy. She initially missed her appointment with us in radiation oncology because she was admitted to the hospital for pain from her compression fracture. During her hospitalization, she had a CT of the thoracic spine on August 28, 2018 which showed a fracture at T5 and T7. She recently underwent kyphoplasty, and is currently in the [facility]. We were asked to see her for radiation. Review of Systems - Respiratory Respiratory: Dyspnea - Musculoskeletal Musculoskeletal: Back Pain Past Patient History - Infectious Disease Hx of Infectious Diseases: None - Past Social History Smoking Status: Never Smoked - CARDIAC Hx Cardiac Disorders: Yes Hx Congestive Heart Failure: Yes Hx Hypercholesterolemia: Yes Hx Hypertension: Yes - PULMONARY Hx Chronic Obstructive Pulmonary Disease (COPD): Yes - NEUROLOGICAL Hx Neurological Disorder: No Other/Comment: peripheral neuropathy - HEENT Hx HEENT Problems: Yes (reading glasses) Hx Cataracts: Yes (cataract sx b/l lens implant age 52) - RENAL Hx Chronic Kidney Disease: No - ENDOCRINE/METABOLIC Hx Endocrine Disorders: No - HEMATOLOGICAL/ONCOLOGICAL Hx Blood Transfusions: No Hx Blood Transfusion Reaction: No - INTEGUMENTARY Other/Comment: b/l arms multiple eccymotic areas "I bruise easily.", fell about a month ago slipped on a towel on the floor dry scab left knee surrounding skin red, fading bruises both knees from "crawling on floor when I fell", bruises both arms, redness to bottom of both feet, dry skin, redness tp sides of toes 4 & 5 both feet, redness to b/l bunyons, crooked great toes both feet, ble +1 pitting edema, red coccyx - MUSCULOSKELETAL/RHEUMATOLOGICAL Hx Arthritis: Yes - GASTROINTESTINAL Hx Gastrointestinal Disorders: No (GERD RIGHT HEMICOL ECTOMY,GASTROENETERITIS,CONSTIPATION) - GENITOURINARY/GYNECOLOGICAL Hx Genitourinary Disorders: No (UTI) Hx Reproductive Disorders: No - PSYCHIATRIC Hx Psychophysiologic Disorder: Yes Hx Anxiety: Yes Hx Depression: No Hx Emotional Abuse: No Hx Physical Abuse: No - SURGICAL HISTORY Hx Surgeries: Yes - ANESTHESIA Hx Anesthesia Reactions: No Hx Malignant Hyperthermia: No Meds Allergies/Adverse Reactions: Allergies Allergy/AdvReac Type Severity Reaction Status Date / Time No Known Allergies Allergy Verified 09/01/18 19:04 - Medications Medications: Current Medications Albuterol/Ipratropium (Duoneb 3 Mg/0.5 Mg (3 Ml) Ud) 3 ml IH [id number] [facility]; Protocol Last Admin: 09/05/18 07:41 Dose: 3 ml Arformoterol Tartrate (Brovana) 15 mcg IH [id number] [facility]; Protocol Last Admin: 09/05/18 07:41 Dose: 15 mcg Aspirin (Ecotrin) 81 mg PO 0800 [facility]; Protocol Last Admin: 09/05/18 08:03 Dose: 81 mg Atorvastatin Calcium (Lipitor) 20 mg PO DIN [facility]; Protocol Last Admin: 09/04/18 17:30 Dose: 20 mg Cyclobenzaprine HCl (Flexeril) 5 mg PO BID [facility] Last Admin: 09/05/18 10:05 Dose: 5 mg Enoxaparin Sodium (Lovenox) 30 mg SC 0600 [facility]; Protocol Last Admin: 09/05/18 05:51 Dose: 30 mg Escitalopram Oxalate (Lexapro) 10 mg PO DAILY [facility] Last Admin: 09/05/18 10:06 Dose: 10 mg Hydrochlorothiazide (Hydrodiuril) 25 mg PO DAILY [facility]; Protocol Last Admin: 09/05/18 10:05 Dose: Not Given Metoprolol Tartrate (Lopressor) 50 mg PO 0800,1600 [facility]; Protocol Last Admin: 09/05/18 08:05 Dose: Not Given Montelukast Sodium (Singulair) 10 mg PO HS [facility]; Protocol Last Admin: 09/04/18 21:52 Dose: 10 mg Morphine Sulfate (Morphine Extended Release Tab) 30 mg PO Q12 [facility] Last Admin: 09/05/18 10:10 Dose: 30 mg Ondansetron HCl (Zofran Inj) 4 mg IVP Q6H PRN; Protocol PRN Reason: Nausea/Vomiting Oxycodone HCl (Oxycodone Immediate Release Tab) 10 mg PO Q4H PRN; Protocol PRN Reason: Pain, moderate (4-7) Last Admin: 09/03/18 13:55 Dose: 10 mg Polyethylene Glycol (Miralax) 17 gm PO BID [facility]; Protocol Last Admin: 09/05/18 10:07 Dose: Not Given Potassium Chloride (K-Dur 20 Meq Er Tab) 20 meq PO 0800 [facility] Last Admin: 09/05/18 08:05 Dose: 20 meq Pregabalin (Lyrica) 50 mg PO HS [facility]; Protocol Last Admin: 09/04/18 21:51 Dose: 50 mg Senna/Docusate Sodium (Senokot S 50 Mg-8.6 Mg) 1 tab PO BID [facility]; Protocol Last Admin: 09/05/18 10:07 Dose: Not Given Sildenafil Citrate (Revatio) 20 mg PO BID [facility]; Protocol Last Admin: 09/05/18 10:07 Dose: 20 mg Physical Exam - Eye Exam Eye Exam: EOMI - ENT Exam ENT Exam: Mucous Membranes Moist - Respiratory Exam Respiratory Exam: Clear to Auscultation Bilateral - Cardiovascular Exam Cardiovascular Exam: REGULAR RHYTHM - GI/Abdominal Exam GI & Abdominal Exam: Normal Bowel Sounds - Neurological Exam Neurological exam: CN II-XII Intact, Oriented x3 Results - Vital Signs Recent Vital Signs: Last Vital Signs Temp 98.9 F 09/04/18 16:00 Pulse 76 09/05/18 08:05 Resp 20 09/04/18 16:00 BP 105/57 L 09/05/18 08:05 Pulse Ox 94 L 09/04/18 16:00 - Labs Result Diagrams: 09/05/18 11:00 09/05/18 11:00 Labs: Laboratory Results - last 24 hr 09/05/18 09/05/18 11:00 11:00 WBC 3.9 L D RBC 3.09 L Hgb 9.5 L Hct 29.8 L MCV 96.4 MCH 30.7 MCHC 31.9 RDW 17.0 H Plt Count 211 MPV 10.4 Sodium 132 Potassium 3.2 L Chloride 99 Carbon Dioxide 27 Anion Gap 10 BUN 10 Creatinine 0.7 Est GFR ( Amer) > 60 Est GFR (Non-Af Amer) > 60 Random Glucose 93 Calcium 9.0 Assessment & Plan - Assessment and Plan (Free Text) Assessment: Ms Ramirez is a 78 year old female with a stage I right breast cancer. She received chemotherapy with you. She had a high oncotype recurrence score. She is currently recovering from kyphoplasty. We would concur that she would benefit from adjuvant radiation therapy to decrease the risk of local recurrence. We spoke about the risks and benefits of radiation therapy. Informed consent was obtained. She is still recovering from the kyphoplasty with residual upper back pain. We will set her up for a simulation upon her discharge from the [facility].
--- NOTE | 2018-09-05 14:07 | CP.PCM.PN ---
<Supa Husain - Last Filed: 09/05/18 14:13> Subjective - Date & Time of Evaluation Date of Evaluation: 09/05/18 Time of Evaluation: 07:00 - Subjective Subjective: Infectious disease progress note: Pt seen and examined at bedside. No acute events overnight. Patient denies any urinary symptoms. Denies any abdominal pain, nausea, vomiting or diarrhea. 12 Point ROS performed and neg other than stated above. Objective - Vital Signs/Intake and Output Vital Signs (last 24 hours): Temp Pulse Resp BP Pulse Ox 98.9 F 76 20 105/57 L 94 L 09/04/18 16:00 09/05/18 08:05 09/04/18 16:00 09/05/18 08:05 09/04/18 16:00 - Medications Medications: Current Medications Albuterol/Ipratropium (Duoneb 3 Mg/0.5 Mg (3 Ml) Ud) 3 ml IH [id number] [facility]; Protocol Last Admin: 09/05/18 13:49 Dose: 3 ml Arformoterol Tartrate (Brovana) 15 mcg IH [id number] [facility]; Protocol Last Admin: 09/05/18 07:41 Dose: 15 mcg Aspirin (Ecotrin) 81 mg PO 0800 [facility]; Protocol Last Admin: 09/05/18 08:03 Dose: 81 mg Atorvastatin Calcium (Lipitor) 20 mg PO DIN [facility]; Protocol Last Admin: 09/04/18 17:30 Dose: 20 mg Cyclobenzaprine HCl (Flexeril) 5 mg PO BID [facility] Last Admin: 09/05/18 10:05 Dose: 5 mg Enoxaparin Sodium (Lovenox) 30 mg SC 0600 [facility]; Protocol Last Admin: 09/05/18 05:51 Dose: 30 mg Escitalopram Oxalate (Lexapro) 10 mg PO DAILY [facility] Last Admin: 09/05/18 10:06 Dose: 10 mg Hydrochlorothiazide (Hydrodiuril) 25 mg PO DAILY [facility]; Protocol Last Admin: 09/05/18 10:05 Dose: Not Given Metoprolol Tartrate (Lopressor) 50 mg PO 0800,1800 [facility]; Protocol Montelukast Sodium (Singulair) 10 mg PO HS [facility]; Protocol Last Admin: 09/04/18 21:52 Dose: 10 mg Morphine Sulfate (Morphine Extended Release Tab) 30 mg PO Q12 [facility] Last Admin: 09/05/18 10:10 Dose: 30 mg Ondansetron HCl (Zofran Inj) 4 mg IVP Q6H PRN; Protocol PRN Reason: Nausea/Vomiting Oxycodone HCl (Oxycodone Immediate Release Tab) 10 mg PO Q4H PRN; Protocol PRN Reason: Pain, moderate (4-7) Last Admin: 09/03/18 13:55 Dose: 10 mg Polyethylene Glycol (Miralax) 17 gm PO BID [facility]; Protocol Last Admin: 09/05/18 10:07 Dose: Not Given Potassium Chloride (K-Dur 20 Meq Er Tab) 20 meq PO 0800 [facility] Last Admin: 09/05/18 08:05 Dose: 20 meq Pregabalin (Lyrica) 50 mg PO HS [facility]; Protocol Last Admin: 09/04/18 21:51 Dose: 50 mg Senna/Docusate Sodium (Senokot S 50 Mg-8.6 Mg) 1 tab PO BID [facility]; Protocol Last Admin: 09/05/18 10:07 Dose: Not Given Sildenafil Citrate (Revatio) 20 mg PO BID [facility]; Protocol Last Admin: 09/05/18 10:07 Dose: 20 mg - Labs Labs: 09/05/18 11:00 09/05/18 11:00 - Constitutional Appears: No Acute Distress - Head Exam Head Exam: ATRAUMATIC, NORMOCEPHALIC - Eye Exam Eye Exam: EOMI - ENT Exam ENT Exam: Mucous Membranes Moist - Respiratory Exam Respiratory Exam: Clear to Ausculation Bilateral. absent: Wheezes - Cardiovascular Exam Cardiovascular Exam: REGULAR RHYTHM, +S1, +S2 - GI/Abdominal Exam GI & Abdominal Exam: Soft. absent: Tenderness - Extremities Exam Extremities Exam: absent: Calf Tenderness, Pedal Edema - Neurological Exam Neurological Exam: Alert, Awake, Oriented x3 - Psychiatric Exam Psychiatric exam: Normal Mood - Skin Skin Exam: Dry, Warm Assessment and Plan - Assessment and Plan (Free Text) Assessment: 78F presents with thoracic vertebral compression fractures S/P kyphoplasty, found to have a UTI with E. coli, uncomplicated. probably cystitis Completed 4 day course of antibiotics Monitor off of antibiotics for now will continue to monitor clinically Case and plan was reviewed and discussed with Dr Levine. <Jett Levine - Last Filed: 09/05/18 15:37> Objective - Vital Signs/Intake and Output Vital Signs (last 24 hours): Temp Pulse Resp BP Pulse Ox 98.9 F 76 20 105/57 L 94 L 09/04/18 16:00 09/05/18 08:05 09/04/18 16:00 09/05/18 08:05 09/04/18 16:00 - Medications Medications: Current Medications Albuterol/Ipratropium (Duoneb 3 Mg/0.5 Mg (3 Ml) Ud) 3 ml IH [id number] [facility]; Protocol Last Admin: 09/05/18 13:49 Dose: 3 ml Arformoterol Tartrate (Brovana) 15 mcg IH [id number] [facility]; Protocol Last Admin: 09/05/18 07:41 Dose: 15 mcg Aspirin (Ecotrin) 81 mg PO 0800 [facility]; Protocol Last Admin: 09/05/18 08:03 Dose: 81 mg Atorvastatin Calcium (Lipitor) 20 mg PO DIN [facility]; Protocol Last Admin: 09/04/18 17:30 Dose: 20 mg Cyclobenzaprine HCl (Flexeril) 5 mg PO BID [facility] Last Admin: 09/05/18 10:05 Dose: 5 mg Enoxaparin Sodium (Lovenox) 30 mg SC 0600 [facility]; Protocol Last Admin: 09/05/18 05:51 Dose: 30 mg Escitalopram Oxalate (Lexapro) 10 mg PO DAILY [facility] Last Admin: 09/05/18 10:06 Dose: 10 mg Hydrochlorothiazide (Hydrodiuril) 25 mg PO DAILY [facility]; Protocol Last Admin: 09/05/18 10:05 Dose: Not Given Metoprolol Tartrate (Lopressor) 50 mg PO 0800,1800 [facility]; Protocol Montelukast Sodium (Singulair) 10 mg PO HS [facility]; Protocol Last Admin: 09/04/18 21:52 Dose: 10 mg Morphine Sulfate (Morphine Extended Release Tab) 30 mg PO Q12 [facility] Last Admin: 09/05/18 10:10 Dose: 30 mg Ondansetron HCl (Zofran Inj) 4 mg IVP Q6H PRN; Protocol PRN Reason: Nausea/Vomiting Oxycodone HCl (Oxycodone Immediate Release Tab) 10 mg PO Q4H PRN; Protocol PRN Reason: Pain, moderate (4-7) Last Admin: 09/03/18 13:55 Dose: 10 mg Polyethylene Glycol (Miralax) 17 gm PO BID [facility]; Protocol Last Admin: 09/05/18 10:07 Dose: Not Given Potassium Chloride (K-Dur 20 Meq Er Tab) 20 meq PO 0800 [facility] Last Admin: 09/05/18 08:05 Dose: 20 meq Pregabalin (Lyrica) 50 mg PO HS [facility]; Protocol Last Admin: 09/04/18 21:51 Dose: 50 mg Senna/Docusate Sodium (Senokot S 50 Mg-8.6 Mg) 1 tab PO BID [facility]; Protocol Last Admin: 09/05/18 10:07 Dose: Not Given Sildenafil Citrate (Revatio) 20 mg PO BID [facility]; Protocol Last Admin: 09/05/18 10:07 Dose: 20 mg - Labs Labs: 09/05/18 11:00 09/05/18 11:00 Assessment and Plan - Assessment and Plan (Free Text) Assessment: Infectious diseases Attending Physician Attestation Patient seen and examined, discussed with medical office worker. I have reviewed the patient's history of present illness, past medical, social, personal and family histories, pertinent physical exam findings, course so far in this hospital admission, pertinent laboratory and imaging results. I agree with the above findings, assessment and plan. In addition, continue to monitor off antibiotics - patient is S/P treatment of E. coli UTI.
[2018-09-06] MEDS: Albuterol-Ipratrop 3 mg / 0.5 (3 ml) UD IH SCH ×4 (01:34→21:05)
[2018-09-06] MEDS: Enoxaparin 30 mg Syringe SC SCH (05:27)
[2018-09-06] MEDS: Potassium Chloride 20 mEq ER Tab PO SCH (07:53)
[2018-09-06] MEDS: Arformoterol 15 mcg/2 ml Inh Sol IH SCH ×2 (08:41→21:04)
[2018-09-06] MEDS: Sildenafil 20 MG TAB PO SCH ×2 (09:54→17:27)
[2018-09-06] MEDS: POLYETHYLENE GLYCOL 3350 17 GM/Dose PACKET PO SCH ×2 (09:54→17:27)
[2018-09-06] MEDS: Docusate-Senna 50 mg-8.6 mg Tab PO SCH ×2 (09:55→17:27)
[2018-09-06] MEDS: Morphine 15 mg SR Tab PO SCH ×2 (09:57→21:16)
--- NOTE | 2018-09-06 13:55 | CP.PCM.PN ---
Subjective - Date & Time of Evaluation Date of Evaluation: 09/06/18 Time of Evaluation: 10:20 - Subjective Subjective: Comfortable, afebrile. Objective - Vital Signs/Intake and Output Vital Signs (last 24 hours): Temp Pulse Resp BP Pulse Ox 98.9 F 74 20 96/53 L 93 L 09/05/18 16:00 09/06/18 07:53 09/05/18 16:00 09/06/18 07:53 09/05/18 16:00 - Medications Medications: Current Medications Albuterol/Ipratropium (Duoneb 3 Mg/0.5 Mg (3 Ml) Ud) 3 ml IH [id number] [facility]; Protocol Last Admin: 09/06/18 13:31 Dose: 3 ml Arformoterol Tartrate (Brovana) 15 mcg IH [id number] [facility]; Protocol Last Admin: 09/06/18 08:41 Dose: 15 mcg Aspirin (Ecotrin) 81 mg PO 0800 [facility]; Protocol Last Admin: 09/06/18 07:52 Dose: 81 mg Atorvastatin Calcium (Lipitor) 20 mg PO DIN [facility]; Protocol Last Admin: 09/05/18 17:33 Dose: 20 mg Cyclobenzaprine HCl (Flexeril) 5 mg PO BID [facility] Last Admin: 09/06/18 09:53 Dose: 5 mg Enoxaparin Sodium (Lovenox) 30 mg SC 0600 [facility]; Protocol Last Admin: 09/06/18 05:27 Dose: 30 mg Escitalopram Oxalate (Lexapro) 10 mg PO DAILY [facility] Last Admin: 09/06/18 09:54 Dose: 10 mg Hydrochlorothiazide (Hydrodiuril) 25 mg PO DAILY [facility]; Protocol Last Admin: 09/06/18 09:59 Dose: Not Given Metoprolol Tartrate (Lopressor) 50 mg PO 0800,1800 [facility]; Protocol Last Admin: 09/06/18 07:53 Dose: Not Given Montelukast Sodium (Singulair) 10 mg PO HS [facility]; Protocol Last Admin: 09/05/18 21:44 Dose: 10 mg Morphine Sulfate (Morphine Extended Release Tab) 15 mg PO Q12 [facility] Last Admin: 09/06/18 09:57 Dose: 15 mg Ondansetron HCl (Zofran Inj) 4 mg IVP Q6H PRN; Protocol PRN Reason: Nausea/Vomiting Oxycodone HCl (Oxycodone Immediate Release Tab) 10 mg PO Q4H PRN; Protocol PRN Reason: Pain, severe (8-10) Polyethylene Glycol (Miralax) 17 gm PO BID [facility]; Protocol Last Admin: 09/06/18 09:54 Dose: Not Given Potassium Chloride (K-Dur 20 Meq Er Tab) 20 meq PO 0800 [facility] Last Admin: 09/06/18 07:53 Dose: 20 meq Pregabalin (Lyrica) 50 mg PO HS [facility]; Protocol Last Admin: 09/05/18 21:45 Dose: 50 mg Senna/Docusate Sodium (Senokot S 50 Mg-8.6 Mg) 1 tab PO BID [facility]; Protocol Last Admin: 09/06/18 09:55 Dose: Not Given Sildenafil Citrate (Revatio) 20 mg PO BID [facility]; Protocol Last Admin: 09/06/18 09:54 Dose: 20 mg - Labs Labs: 09/05/18 11:00 09/05/18 11:00 - Constitutional Appears: Chronically Ill - Head Exam Head Exam: NORMAL INSPECTION - Respiratory Exam Respiratory Exam: Decreased Breath Sounds - Cardiovascular Exam Cardiovascular Exam: +S1, +S2 - GI/Abdominal Exam GI & Abdominal Exam: Soft. absent: Tenderness Assessment and Plan - Assessment and Plan (Free Text) Plan: Assessment S/P UTI with E. coli, uncomplicated. probably cystitis thoracic vertebral compression fractures S/P kyphoplasty COPD chronic renal failure pulmonary HTN PVD GERD Plan completed course of Rocephin will continue to monitor clinically off antibiotics since she is at risk for nosocomial infections
[2018-09-06] MEDS: oxyCODONE 10 mg Immediate Release Tab PO PRN (14:01)
[2018-09-07] MEDS: Albuterol-Ipratrop 3 mg / 0.5 (3 ml) UD IH SCH ×4 (02:03→19:21)
[2018-09-07] MEDS: Enoxaparin 30 mg Syringe SC SCH (05:18)
[2018-09-07] MEDS: Arformoterol 15 mcg/2 ml Inh Sol IH SCH ×2 (07:24→19:20)
[2018-09-07] MEDS: Potassium Chloride 20 mEq ER Tab PO SCH (08:24)
[2018-09-07] MEDS: POLYETHYLENE GLYCOL 3350 17 GM/Dose PACKET PO SCH ×2 (09:47→17:34)
[2018-09-07] MEDS: Docusate-Senna 50 mg-8.6 mg Tab PO SCH ×2 (09:47→17:35)
[2018-09-07] MEDS: Sildenafil 20 MG TAB PO SCH ×2 (09:47→17:34)
--- NOTE | 2018-09-07 13:19 | CP.PCM.PN ---
Subjective - Date & Time of Evaluation Date of Evaluation: 09/07/18 Time of Evaluation: 10:45 - Subjective Subjective: Comfortable, not in distress, no fevers. Objective - Vital Signs/Intake and Output Vital Signs (last 24 hours): Temp Pulse Resp BP Pulse Ox 98.9 F 74 20 96/53 L 93 L 09/05/18 16:00 09/06/18 07:53 09/05/18 16:00 09/06/18 07:53 09/05/18 16:00 - Medications Medications: Current Medications Albuterol/Ipratropium (Duoneb 3 Mg/0.5 Mg (3 Ml) Ud) 3 ml IH [id number] [facility]; Protocol Last Admin: 09/06/18 13:31 Dose: 3 ml Arformoterol Tartrate (Brovana) 15 mcg IH [id number] [facility]; Protocol Last Admin: 09/06/18 08:41 Dose: 15 mcg Aspirin (Ecotrin) 81 mg PO 0800 [facility]; Protocol Last Admin: 09/06/18 07:52 Dose: 81 mg Atorvastatin Calcium (Lipitor) 20 mg PO DIN [facility]; Protocol Last Admin: 09/05/18 17:33 Dose: 20 mg Cyclobenzaprine HCl (Flexeril) 5 mg PO BID [facility] Last Admin: 09/06/18 09:53 Dose: 5 mg Enoxaparin Sodium (Lovenox) 30 mg SC 0600 [facility]; Protocol Last Admin: 09/06/18 05:27 Dose: 30 mg Escitalopram Oxalate (Lexapro) 10 mg PO DAILY [facility] Last Admin: 09/06/18 09:54 Dose: 10 mg Hydrochlorothiazide (Hydrodiuril) 25 mg PO DAILY [facility]; Protocol Last Admin: 09/06/18 09:59 Dose: Not Given Metoprolol Tartrate (Lopressor) 50 mg PO 0800,1800 [facility]; Protocol Last Admin: 09/06/18 07:53 Dose: Not Given Montelukast Sodium (Singulair) 10 mg PO HS [facility]; Protocol Last Admin: 09/05/18 21:44 Dose: 10 mg Morphine Sulfate (Morphine Extended Release Tab) 15 mg PO Q12 [facility] Last Admin: 09/06/18 09:57 Dose: 15 mg Ondansetron HCl (Zofran Inj) 4 mg IVP Q6H PRN; Protocol PRN Reason: Nausea/Vomiting Oxycodone HCl (Oxycodone Immediate Release Tab) 10 mg PO Q4H PRN; Protocol PRN Reason: Pain, severe (8-10) Polyethylene Glycol (Miralax) 17 gm PO BID [facility]; Protocol Last Admin: 09/06/18 09:54 Dose: Not Given Potassium Chloride (K-Dur 20 Meq Er Tab) 20 meq PO 0800 [facility] Last Admin: 09/06/18 07:53 Dose: 20 meq Pregabalin (Lyrica) 50 mg PO HS [facility]; Protocol Last Admin: 09/05/18 21:45 Dose: 50 mg Senna/Docusate Sodium (Senokot S 50 Mg-8.6 Mg) 1 tab PO BID [facility]; Protocol Last Admin: 09/06/18 09:55 Dose: Not Given Sildenafil Citrate (Revatio) 20 mg PO BID [facility]; Protocol Last Admin: 09/06/18 09:54 Dose: 20 mg - Labs Labs: 09/05/18 11:00 09/05/18 11:00 - Constitutional Appears: Chronically Ill - Head Exam Head Exam: NORMAL INSPECTION - Respiratory Exam Respiratory Exam: Decreased Breath Sounds - Cardiovascular Exam Cardiovascular Exam: +S1, +S2 - GI/Abdominal Exam GI & Abdominal Exam: Soft. absent: Tenderness Assessment and Plan - Assessment and Plan (Free Text) Plan: Assessment S/P UTI with E. coli, uncomplicated. probably cystitis thoracic vertebral compression fractures S/P kyphoplasty COPD chronic renal failure pulmonary HTN PVD GERD Plan completed course of Rocephin will continue to monitor clinically off antibiotics since she is at risk for hospital-acquired infections
[2018-09-07] MEDS: Morphine 15 mg SR Tab PO SCH ×2 (17:34→21:27)
[2018-09-08] MEDS: Albuterol-Ipratrop 3 mg / 0.5 (3 ml) UD IH SCH ×4 (01:13→19:54)
[2018-09-08] MEDS: Enoxaparin 30 mg Syringe SC SCH (05:27)
[2018-09-08] MEDS: Arformoterol 15 mcg/2 ml Inh Sol IH SCH ×2 (07:15→19:53)
[2018-09-08] MEDS: Potassium Chloride 20 mEq ER Tab PO SCH (09:46)
[2018-09-08] MEDS: Sildenafil 20 MG TAB PO SCH ×2 (09:47→17:17)
[2018-09-08] MEDS: POLYETHYLENE GLYCOL 3350 17 GM/Dose PACKET PO SCH ×2 (09:47→17:17)
[2018-09-08] MEDS: Docusate-Senna 50 mg-8.6 mg Tab PO SCH ×2 (11:08→17:17)
--- NOTE | 2018-09-08 12:57 | CP.PCM.PN ---
Subjective - Date & Time of Evaluation Date of Evaluation: 09/08/18 Time of Evaluation: 11:25 - Subjective Subjective: No fevers, not in distress. Objective - Vital Signs/Intake and Output Vital Signs (last 24 hours): Temp Pulse Resp BP Pulse Ox 98.7 F 90 20 107/55 L 97 09/06/18 16:00 09/06/18 17:26 09/06/18 16:00 09/07/18 08:25 09/06/18 16:47 Intake and Output: 09/07/18 09/07/18 06:59 18:59 Intake Total 240 Balance 240 - Medications Medications: Current Medications Albuterol/Ipratropium (Duoneb 3 Mg/0.5 Mg (3 Ml) Ud) 3 ml IH [id number] [facility]; Protocol Last Admin: 09/07/18 07:24 Dose: 3 ml Arformoterol Tartrate (Brovana) 15 mcg IH [id number] [facility]; Protocol Last Admin: 09/07/18 07:24 Dose: 15 mcg Aspirin (Ecotrin) 81 mg PO 0800 [facility]; Protocol Last Admin: 09/07/18 08:24 Dose: 81 mg Atorvastatin Calcium (Lipitor) 20 mg PO DIN [facility]; Protocol Last Admin: 09/06/18 17:26 Dose: 20 mg Cyclobenzaprine HCl (Flexeril) 5 mg PO BID [facility] Last Admin: 09/07/18 09:46 Dose: 5 mg Enoxaparin Sodium (Lovenox) 30 mg SC 0600 [facility]; Protocol Last Admin: 09/07/18 05:18 Dose: 30 mg Escitalopram Oxalate (Lexapro) 10 mg PO DAILY [facility] Last Admin: 09/07/18 09:46 Dose: 10 mg Hydrochlorothiazide (Hydrodiuril) 25 mg PO DAILY [facility]; Protocol Last Admin: 09/07/18 09:46 Dose: Not Given Metoprolol Tartrate (Lopressor) 50 mg PO 0800,1800 [facility]; Protocol Last Admin: 09/07/18 08:25 Dose: 50 mg Montelukast Sodium (Singulair) 10 mg PO HS [facility]; Protocol Last Admin: 09/06/18 21:16 Dose: 10 mg Morphine Sulfate (Morphine Extended Release Tab) 15 mg PO Q12 [facility] Last Admin: 09/06/18 21:16 Dose: 15 mg Ondansetron HCl (Zofran Inj) 4 mg IVP Q6H PRN; Protocol PRN Reason: Nausea/Vomiting Oxycodone HCl (Oxycodone Immediate Release Tab) 10 mg PO Q4H PRN; Protocol PRN Reason: Pain, severe (8-10) Last Admin: 09/06/18 14:01 Dose: 10 mg Polyethylene Glycol (Miralax) 17 gm PO BID [facility]; Protocol Last Admin: 09/07/18 09:47 Dose: Not Given Potassium Chloride (K-Dur 20 Meq Er Tab) 20 meq PO 0800 [facility] Last Admin: 09/07/18 08:24 Dose: 20 meq Pregabalin (Lyrica) 50 mg PO HS [facility]; Protocol Last Admin: 09/06/18 21:16 Dose: 50 mg Senna/Docusate Sodium (Senokot S 50 Mg-8.6 Mg) 1 tab PO BID [facility]; Protocol Last Admin: 09/07/18 09:47 Dose: Not Given Sildenafil Citrate (Revatio) 20 mg PO BID [facility]; Protocol Last Admin: 09/07/18 09:47 Dose: 20 mg - Labs Labs: 09/05/18 11:00 09/05/18 11:00 - Constitutional Appears: Non-toxic - Head Exam Head Exam: NORMAL INSPECTION - Respiratory Exam Respiratory Exam: Decreased Breath Sounds - Cardiovascular Exam Cardiovascular Exam: +S1, +S2 - GI/Abdominal Exam GI & Abdominal Exam: Soft. absent: Tenderness Assessment and Plan - Assessment and Plan (Free Text) Plan: Assessment S/P UTI with E. coli, uncomplicated. probably cystitis thoracic vertebral compression fractures S/P kyphoplasty COPD chronic renal failure pulmonary HTN PVD GERD Plan completed course of Rocephin will continue to monitor clinically off antibiotics since she is at risk for healthcare-associated infections
[2018-09-08] MEDS: Morphine 15 mg SR Tab PO SCH ×2 (17:17→21:59)
[2018-09-09] MEDS: Albuterol-Ipratrop 3 mg / 0.5 (3 ml) UD IH SCH ×4 (01:32→19:50)
[2018-09-09] MEDS: Enoxaparin 30 mg Syringe SC SCH (06:06)
[2018-09-09] MEDS: Arformoterol 15 mcg/2 ml Inh Sol IH SCH ×2 (07:51→19:50)
[2018-09-09] MEDS: Potassium Chloride 20 mEq ER Tab PO SCH (08:16)
[2018-09-09] MEDS: oxyCODONE 10 mg Immediate Release Tab PO PRN (08:21)
[2018-09-09] MEDS: Sildenafil 20 MG TAB PO SCH ×2 (09:24→17:24)
[2018-09-09] MEDS: POLYETHYLENE GLYCOL 3350 17 GM/Dose PACKET PO SCH ×2 (10:50→17:24)
[2018-09-09] MEDS: Docusate-Senna 50 mg-8.6 mg Tab PO SCH ×2 (10:50→17:54)
[2018-09-09] MEDS: Morphine 15 mg SR Tab PO SCH ×2 (12:06→21:26)
--- NOTE | 2018-09-09 16:57 | CP.PCM.CON ---
History of Present Illness - History of Present Illness History of Present Illness: Surgery HISTORY OF PRESENT ILLNESS: Ms. Ramirez is a 78-year-old female, presented with severe back pain. She was admitted in July with T5 vertebral fracture after fall in the house. CT of the spine showed T7 vertebral fracture in addition to old T5 vertebral fracture, which she had in July. She has a underlying COPD and has been on oral steroid for a long period of time for exacerbations. She also has pulmonary hypertension, was evaluated by Dr. Welsh during last hospitalization started on sildenafil. Denies any pain. No shortness of breath. No cough with expectoration. She has breast cancer, completed chemotherapy with weekly Taxotere. She was scheduled to undergo radiation to the right breast, which has been on hold because of the hospitalization and severe back pain. Surgery is consulted to ev phyllis for sacral ulcer. PAST MEDICAL HISTORY: Breast cancer, COPD, pulmonary hypertension, chronic , kidney disease, peripheral vascular disease, peripheral neuropathy, recurrent falls, GE reflux. PAST SURGICAL HISTORY: Right-sided lumpectomy, polypectomy, recent adenoma resection right-sided colon. chemo Port Review of Systems - Constitutional Constitutional: absent: Chills Past Patient History - Infectious Disease Hx of Infectious Diseases: None - Past Social History Smoking Status: Never Smoked - CARDIAC Hx Cardiac Disorders: Yes Hx Congestive Heart Failure: Yes Hx Hypercholesterolemia: Yes Hx Hypertension: Yes - PULMONARY Hx Chronic Obstructive Pulmonary Disease (COPD): Yes - NEUROLOGICAL Hx Neurological Disorder: No Other/Comment: peripheral neuropathy - HEENT Hx HEENT Problems: Yes (reading glasses) Hx Cataracts: Yes (cataract sx b/l lens implant age 52) - RENAL Hx Chronic Kidney Disease: No - ENDOCRINE/METABOLIC Hx Endocrine Disorders: No - HEMATOLOGICAL/ONCOLOGICAL Hx Blood Transfusions: No Hx Blood Transfusion Reaction: No - INTEGUMENTARY Other/Comment: b/l arms multiple eccymotic areas "I bruise easily.", fell about a month ago slipped on a towel on the floor dry scab left knee surrounding skin red, fading bruises both knees from "crawling on floor when I fell", bruises both arms, redness to bottom of both feet, dry skin, redness tp sides of toes 4 & 5 both feet, redness to b/l bunyons, crooked great toes both feet, ble +1 pitting edema, red coccyx - MUSCULOSKELETAL/RHEUMATOLOGICAL Hx Arthritis: Yes - GASTROINTESTINAL Hx Gastrointestinal Disorders: No (GERD RIGHT HEMICOLECTOMY,GASTROENETERITIS,CONSTIPATION) - GENITOURINARY/GYNECOLOGICAL Hx Genitourinary Disorders: No (UTI) Hx Reproductive Disorders: No - PSYCHIATRIC Hx Psychophysiologic Disorder: Yes Hx Anxiety: Yes Hx Depression: No Hx Emotional Abuse: No Hx Physical Abuse: No - SURGICAL HISTORY Hx Surgeries: Yes - ANESTHESIA Hx Anesthesia Reactions: No Hx Malignant Hyperthermia: No Meds Allergies/Adverse Reactions: Allergies Allergy/AdvReac Type Severity Reaction Status Date / Time No Known Allergies Allergy Verified 09/01/18 19:04 - Medications Medications: Current Medications Albuterol/Ipratropium (Duoneb 3 Mg/0.5 Mg (3 Ml) Ud) 3 ml IH [id number] [facility]; Protocol Last Admin: 09/09/18 14:24 Dose: Not Given Arformoterol Tartrate (Brovana) 15 mcg IH [id number] [facility]; Protocol Last Admin: 09/09/18 07:51 Dose: 15 mcg Aspirin (Ecotrin) 81 mg PO 0800 [facility]; Protocol Last Admin: 09/09/18 08:16 Dose: 81 mg Atorvastatin Calcium (Lipitor) 20 mg PO DIN [facility]; Protocol Last Admin: 09/08/18 17:30 Dose: 20 mg Cyclobenzaprine HCl (Flexeril) 5 mg PO BID [facility] Last Admin: 09/09/18 09:24 Dose: 5 mg Enoxaparin Sodium (Lovenox) 30 mg SC 0600 [facility]; Protocol Last Admin: 09/09/18 06:06 Dose: 30 mg Escitalopram Oxalate (Lexapro) 10 mg PO DAILY [facility] Last Admin: 09/09/18 09:24 Dose: 10 mg Hydrochlorothiazide (Hydrodiuril) 25 mg PO DAILY [facility]; Protocol Last Admin: 09/09/18 12:05 Dose: Not Given Metoprolol Tartrate (Lopressor) 50 mg PO 0800,1800 [facility]; Protocol Last Admin: 09/09/18 08:17 Dose: 50 mg Montelukast Sodium (Singulair) 10 mg PO HS [facility]; Protocol Last Admin: 09/08/18 22:00 Dose: 10 mg Morphine Sulfate (Morphine Extended Release Tab) 15 mg PO Q12 [facility] Last Admin: 09/09/18 12:06 Dose: Not Given Ondansetron HCl (Zofran Inj) 4 mg IVP Q6H [facility]; Protocol PRN Reason: Nausea/Vomiting Oxycodone HCl (Oxycodone Immediate Release Tab) 10 mg PO Q4H PRN; Protocol PRN Reason: Pain, severe (8-10) Last Admin: 09/09/18 08:21 Dose: 10 mg Polyethylene Glycol (Miralax) 17 gm PO BID [facility]; Protocol Last Admin: 09/09/18 10:50 Dose: Not Given Potassium Chloride (K-Dur 20 Meq Er Tab) 20 meq PO 0800 [facility] Last Admin: 09/09/18 08:16 Dose: 20 meq Pregabalin (Lyrica) 50 mg PO HS [facility]; Protocol Last Admin: 09/08/18 21:59 Dose: 50 mg Senna/Docusate Sodium (Senokot S 50 Mg-8.6 Mg) 1 tab PO BID [facility]; Protocol Last Admin: 09/09/18 10:50 Dose: Not Given Sildenafil Citrate (Revatio) 20 mg PO BID [facility]; Protocol Last Admin: 09/09/18 09:24 Dose: 20 mg Physical Exam - Constitutional Appears: No Acute Distress - Head Exam Head Exam: ATRAUMATIC, NORMAL INSPECTION, NORMOCEPHALIC - Eye Exam Eye Exam: EOMI, Normal appearance, PERRL Pupil Exam: NORMAL ACCOMODATION, PERRL - ENT Exam ENT Exam: Mucous Membranes Moist - Neck Exam Neck exam: Positive for: Normal Inspection - Respiratory Exam Respiratory Exam: NORMAL BREATHING PATTERN - Cardiovascular Exam Cardiovascular Exam: REGULAR RHYTHM - GI/Abdominal Exam GI & Abdominal Exam: Soft. absent: Distended, Tenderness - Exam Exam: NORMAL INSPECTION - Extremities Exam Extremities exam: Positive for: pedal edema, tenderness. Negative for: full ROM Additional comments: R heal has excoriation. pedal adema. - Back Exam Back exam: tenderness Additional comments: R sacral area has stage 1 superficial sacral decubitus ulcer 3x4cm. MIld discoloration. - Neurological Exam Neurological exam: Alert, Oriented x3 - Psychiatric Exam Psychiatric exam: Normal Affect, Normal Mood - Skin Skin Exam: Dry, Erythema, Warm Results - Vital Signs Recent Vital Signs: Last Vital Signs Temp 98.4 F 09/09/18 16:00 Pulse 80 09/09/18 16:00 Resp 20 09/09/18 16:00 BP 137/69 09/09/18 16:00 Pulse Ox 97 09/09/18 16:00 - Labs Result Diagrams: 09/05/18 11:00 09/05/18 11:00 Assessment & Plan - Assessment and Plan (Free Text) Assessment: decubitus ulcer stage I : superficial abrasion w discoloration -Santyl on sacral wound -Silvadene on the R heel Will DW Dr. Patel
[2018-09-09] MEDS: Silver Sulfadiazine 1% Cream (25 gm) TP SCH (17:53)
[2018-09-09] MEDS: Collagenase 250 Units/gm Ointment(30 gm) TOP SCH (17:53)
--- NOTE | 2018-09-09 22:22 | PN ---
DATE: 09/09/2018 SUBJECTIVE: The patient is in bed, in no acute distress, was seen earlier today in room 327, bed 2. No fevers and chills. She states she had a poor appetite. OBJECTIVE: VITAL SIGNS: Temperature is 98, blood pressure is 103/60, respiratory rate of 18. HEENT: Unremarkable. NECK: Supple. LUNGS: Have decreased breath sounds. HEART: Normal S1, S2. ABDOMEN: Soft, nontender. LABORATORY EXAMINATION: Reveals a white count of 3.9, hemoglobin of 9, platelets of 211. Chemistries reveals a BUN of 10, creatinine of 0.7. ASSESSMENT AND PLAN: This is a 78-year-old female seen earlier today in room 327, status post urinary tract infection with Escherichia coli uncomplicated probable cystitis and the patient with thoracic vertebral compression fracture status post kyphoplasty, has completed the antibiotics in a patient with chronic refractive lung disease, renal failure, pulmonary hypertension, peripheral vascular disease and gastroesophageal reflux disease. Currently, review of orders confirms the patient to be off of antibiotics. However, the patient is at risk for developing nosocomial infections. Tho Evans MD
[2018-09-10] MEDS: Albuterol-Ipratrop 3 mg / 0.5 (3 ml) UD IH SCH ×4 (01:52→19:50)
[2018-09-10] MEDS: Enoxaparin 30 mg Syringe SC SCH (05:47)
[2018-09-10] MEDS: Arformoterol 15 mcg/2 ml Inh Sol IH SCH ×2 (07:19→19:50)
[2018-09-10] MEDS: Potassium Chloride 20 mEq ER Tab PO SCH (08:23)
[2018-09-10] MEDS: Collagenase 250 Units/gm Ointment(30 gm) TOP SCH (09:14)
[2018-09-10] MEDS: POLYETHYLENE GLYCOL 3350 17 GM/Dose PACKET PO SCH ×2 (09:14→17:28)
[2018-09-10] MEDS: Docusate-Senna 50 mg-8.6 mg Tab PO SCH ×2 (09:14→17:28)
[2018-09-10] MEDS: Sildenafil 20 MG TAB PO SCH ×2 (09:15→17:28)
[2018-09-10] MEDS: Silver Sulfadiazine 1% Cream (25 gm) TP SCH (09:15)
[2018-09-10] MEDS: oxyCODONE 10 mg Immediate Release Tab PO PRN (09:18)
[2018-09-10 10:59] VITALS: TEMP 98.2; O2SAT 98
--- NOTE | 2018-09-10 16:35 | CP.PCM.PN ---
Subjective - Date & Time of Evaluation Date of Evaluation: 09/10/18 Time of Evaluation: 10:10 - Subjective Subjective: Afebrile, not in distress. Objective - Vital Signs/Intake and Output Vital Signs (last 24 hours): Temp Pulse Resp BP Pulse Ox 98.4 F 80 20 102/53 L 97 09/09/18 16:00 09/09/18 16:00 09/09/18 16:00 09/10/18 08:24 09/09/18 16:00 - Medications Medications: Current Medications Albuterol/Ipratropium (Duoneb 3 Mg/0.5 Mg (3 Ml) Ud) 3 ml IH [id number] [facility]; Protocol Last Admin: 09/10/18 07:19 Dose: 3 ml Arformoterol Tartrate (Brovana) 15 mcg IH [id number] [facility]; Protocol Last Admin: 09/10/18 07:19 Dose: 15 mcg Aspirin (Ecotrin) 81 mg PO 0800 [facility]; Protocol Last Admin: 09/10/18 08:23 Dose: 81 mg Atorvastatin Calcium (Lipitor) 20 mg PO DIN [facility]; Protocol Last Admin: 09/09/18 17:23 Dose: 20 mg Collagenase (Santyl) 0 gm TOP DAILY [facility] Last Admin: 09/10/18 09:14 Dose: 1 applic Cyclobenzaprine HCl (Flexeril) 5 mg PO BID [facility] Last Admin: 09/10/18 09:13 Dose: 5 mg Escitalopram Oxalate (Lexapro) 10 mg PO DAILY [facility] Last Admin: 09/10/18 09:14 Dose: 10 mg Hydrochlorothiazide (Hydrodiuril) 25 mg PO DAILY [facility]; Protocol Last Admin: 09/10/18 09:14 Dose: Not Given Metoprolol Tartrate (Lopressor) 50 mg PO 0800,1800 [facility]; Protocol Last Admin: 09/10/18 08:24 Dose: Not Given Montelukast Sodium (Singulair) 10 mg PO HS [facility]; Protocol Last Admin: 09/09/18 21:25 Dose: 10 mg Ondansetron HCl (Zofran Inj) 4 mg IVP Q6H [facility]; Protocol PRN Reason: Nausea/Vomiting Oxycodone HCl (Oxycodone Immediate Release Tab) 10 mg PO Q4H [facility]N; Protocol PRN Reason: Pain, severe (8-10) Last Admin: 09/10/18 09:18 Dose: 10 mg Polyethylene Glycol (Miralax) 17 gm PO BID [facility]; Protocol Last Admin: 09/10/18 09:14 Dose: Not Given Potassium Chloride (K-Dur 20 Meq Er Tab) 20 meq PO 0800 [facility] Last Admin: 09/10/18 08:23 Dose: 20 meq Pregabalin (Lyrica) 50 mg PO HS [facility]; Protocol Last Admin: 09/09/18 21:25 Dose: 50 mg Senna/Docusate Sodium (Senokot S 50 Mg-8.6 Mg) 1 tab PO BID [facility]; Protocol Last Admin: 09/10/18 09:14 Dose: 1 tab Sildenafil Citrate (Revatio) 20 mg PO BID [facility]; Protocol Last Admin: 09/10/18 09:15 Dose: 20 mg Silver Sulfadiazine (Silvadene 1% 25 Gm) 0 gm TP DAILY [facility] Last Admin: 09/10/18 09:15 Dose: 25 gm - Labs Labs: 09/05/18 11:00 09/05/18 11:00 - Constitutional Appears: Chronically Ill - Head Exam Head Exam: NORMAL INSPECTION - Respiratory Exam Respiratory Exam: Decreased Breath Sounds - Cardiovascular Exam Cardiovascular Exam: +S1, +S2 - GI/Abdominal Exam GI & Abdominal Exam: Soft. absent: Tenderness Assessment and Plan - Assessment and Plan (Free Text) Plan: Assessment S/P UTI with E. coli, uncomplicated. probably cystitis thoracic vertebral compression fractures S/P kyphoplasty COPD chronic renal failure pulmonary HTN PVD GERD Plan completed course of Rocephin will continue to monitor clinically off antibiotics since she is at risk for nosocomial infections
[2018-09-10 17:09] VITALS: RESP 22
[2018-09-11] MEDS: Albuterol-Ipratrop 3 mg / 0.5 (3 ml) UD IH SCH ×3 (02:00→13:11)
[2018-09-11 07:55] VITALS: BP 118/59; PULSE 67
[2018-09-11] MEDS: Arformoterol 15 mcg/2 ml Inh Sol IH SCH (08:14)
[2018-09-11] MEDS: Potassium Chloride 20 mEq ER Tab PO SCH (08:15)
--- NOTE | 2018-09-11 09:30 | DS ---
DISCHARGE DIAGNOSES: 1. Breast cancer. 2. Status post kyphoplasty, T5-T11 vertebra. 3. Deconditioning. 4. Chronic obstructive pulmonary disease. 5. Pulmonary hypertension. HOSPITAL COURSE: The patient was admitted for deconditioning to the transitional care unit. Gait improved. She received physical therapy. She also had radiation oncology consultation with Dr. Linn for initiation of the radiation to the right breast as outpatient. She also developed bed sore, wound care saw her during hospitalization. Evaluated by surgery Dr. Peters. Advised Silvadene on the right heel and on the sacral wound, it was stage 1 decubitus superficial abrasion. Also saw Dr. Levine. No indication for further antibiotics. She completed course of ceftriaxone. Being discharge home in stable condition. PHYSICAL EXAMINATION: GENERAL: Comfortable in bed, in no acute disease. VITAL SIGNS: Temperature 98.2, heart rate 83 per minute, blood pressure 122/66, respiratory rate 20 per minute and oxygen saturation 98% on room air. HEENT: Pallor positive. NECK: No lymphadenopathy. CHEST: Air entry present and equal bilaterally. No added sounds. CARDIOVASCULAR: S1 and S2 normal. No murmur. No gallop. ABDOMEN: Soft and nontender. No hepatosplenomegaly. EXTREMITIES: No edema. CONDITION ON DISCHARGE: Stable. DISPOSITION: Discharge home. MEDICATION: Continue home medication, topical application b.i.d., morphine 15 mg b.i.d., oxycodone p.r.n. All prescription given to the patient. Time spent in preparing discharge and coordinating care, 60 minutes. Home care services were arranged for the wound care. Lizbet Phillips MD
[2018-09-11] MEDS: POLYETHYLENE GLYCOL 3350 17 GM/Dose PACKET PO SCH (10:35)
[2018-09-11] MEDS: Docusate-Senna 50 mg-8.6 mg Tab PO SCH (10:45)
[2018-09-11] MEDS: Sildenafil 20 MG TAB PO SCH (10:46)
[2018-09-11] MEDS: Collagenase 250 Units/gm Ointment(30 gm) TOP SCH (10:47)
[2018-09-11] MEDS: Silver Sulfadiazine 1% Cream (25 gm) TP SCH (10:47)
--- NOTE | 2018-09-11 13:55 | CP.PCM.PN ---
Subjective - Date & Time of Evaluation Date of Evaluation: 09/11/18 Time of Evaluation: 11:40 - Subjective Subjective: Afebrile, non-toxic. Objective - Vital Signs/Intake and Output Vital Signs (last 24 hours): Temp Pulse Resp BP Pulse Ox 98.2 F 82 20 98/57 L 98 09/10/18 10:00 09/10/18 10:00 09/10/18 10:00 09/10/18 10:00 09/10/18 10:00 - Medications Medications: Current Medications Albuterol/Ipratropium (Duoneb 3 Mg/0.5 Mg (3 Ml) Ud) 3 ml IH [id number] [facility]; Protocol Last Admin: 09/10/18 13:42 Dose: 3 ml Arformoterol Tartrate (Brovana) 15 mcg IH [id number] [facility]; Protocol Last Admin: 09/10/18 07:19 Dose: 15 mcg Aspirin (Ecotrin) 81 mg PO 0800 [facility]; Protocol Last Admin: 09/10/18 08:23 Dose: 81 mg Atorvastatin Calcium (Lipitor) 20 mg PO DIN [facility]; Protocol Last Admin: 09/09/18 17:23 Dose: 20 mg Collagenase (Santyl) 0 gm TOP DAILY [facility] Last Admin: 09/10/18 09:14 Dose: 1 applic Cyclobenzaprine HCl (Flexeril) 5 mg PO BID [facility] Last Admin: 09/10/18 09:13 Dose: 5 mg Escitalopram Oxalate (Lexapro) 10 mg PO DAILY [facility] Last Admin: 09/10/18 09:14 Dose: 10 mg Hydrochlorothiazide (Hydrodiuril) 25 mg PO DAILY [facility]; Protocol Last Admin: 09/10/18 09:14 Dose: Not Given Metoprolol Tartrate (Lopressor) 50 mg PO 0800,1800 [facility]; Protocol Last Admin: 09/10/18 08:24 Dose: Not Given Montelukast Sodium (Singulair) 10 mg PO HS [facility]; Protocol Last Admin: 09/09/18 21:25 Dose: 10 mg Ondansetron HCl (Zofran Inj) 4 mg IVP Q6H [facility]; Protocol PRN Reason: Nausea/Vomiting Polyethylene Glycol (Miralax) 17 gm PO BID [facility]; Protocol Last Admin: 09/10/18 09:14 Dose: Not Given Potassium Chloride (K-Dur 20 Meq Er Tab) 20 meq PO 0800 [facility] Last Admin: 09/10/18 08:23 Dose: 20 meq Pregabalin (Lyrica) 50 mg PO HS [facility]; Protocol Last Admin: 09/09/18 21:25 Dose: 50 mg Senna/Docusate Sodium (Senokot S 50 Mg-8.6 Mg) 1 tab PO BID [facility]; Protocol Last Admin: 09/10/18 09:14 Dose: 1 tab Sildenafil Citrate (Revatio) 20 mg PO BID [facility]; Protocol Last Admin: 09/10/18 09:15 Dose: 20 mg Silver Sulfadiazine (Silvadene 1% 25 Gm) 0 gm TP DAILY [facility] Last Admin: 09/10/18 09:15 Dose: 25 gm - Labs Labs: 09/05/18 11:00 09/05/18 11:00 - Constitutional Appears: Chronically Ill - Head Exam Head Exam: NORMAL INSPECTION - Respiratory Exam Respiratory Exam: Decreased Breath Sounds - Cardiovascular Exam Cardiovascular Exam: +S1, +S2 - GI/Abdominal Exam GI & Abdominal Exam: Soft. absent: Tenderness Assessment and Plan - Assessment and Plan (Free Text) Plan: Assessment S/P UTI with E. coli, uncomplicated. probably cystitis thoracic vertebral compression fractures S/P kyphoplasty COPD chronic renal failure pulmonary HTN PVD GERD Plan completed course of Rocephin will continue to monitor clinically off antibiotics since she is at risk for hospital-acquired infections
== END 2018-09-11 14:33 | disposition home or self-care (01) | DRG 598 ==
LOC: TRCU 15:37
PROVIDERS: ADMIT Internal Medicine Medical Oncology; ATTEND Internal Medicine Medical Oncology
DX: C50.911 Malignant neoplasm of unspecified site of right female breast (principal); I13.0 Hypertensive heart and chronic kidney disease with heart failure and stage 1 through stage 4 chronic kidney disease, or unspecified chronic kidney disease; J44.9 Chronic obstructive pulmonary disease, unspecified; I27.20 Pulmonary hypertension, unspecified; L89.151 Pressure ulcer of sacral region, stage 1; K21.9 Gastro-esophageal reflux disease without esophagitis; I73.9 Peripheral vascular disease, unspecified; N18.9 Chronic kidney disease, unspecified; B96.20 Unspecified Escherichia coli [E. coli] as the cause of diseases classified elsewhere; N30.90 Cystitis, unspecified without hematuria; E78.5 Hyperlipidemia, unspecified; I50.9 Heart failure, unspecified; K27.9 Peptic ulcer, site unspecified, unspecified as acute or chronic, without hemorrhage or perforation

== ENCOUNTER 2018-09-13 13:23 | Inpatient (IN) | payer MEDICARE, MEDICAID ==
[2018-09-13 13:26] VITALS: BMI 25.4
[2018-09-13] MEDS ORDERED: Albuterol-Ipratrop 3 mg / 0.5 (3 ml) UD IH STA (13:48)
--- NOTE | 2018-09-13 13:52 | ED PDOC ---
Arrival/HPI - General Chief Complaint: Weakness/Neurological Deficit Time Seen by Provider: 09/13/18 13:35 Historian: Patient, Family - History of Present Illness Narrative History of Present Illness (Text): 09/13/18 13:48 78 year old female, whose past medical history includes hypertension, CAD with CABG, COPD, h/o CAP ( November 2016), multi level degenerative disc, and metastatic breast cancer, who presents to the emergency department for admission. Patient was discharged from the hospital yesterday, Dr. Phillips sent her back for failure to thrive. Patient reports associated sore on her buttocks, productive cough, chills, and bilateral lower edema. She denies headache, dizziness, chest pain, shortness of breath, dyspnea on exertion, cough, abdominal pain, nausea, vomiting, diarrhea, neck pain, or any other complaint. PMD: Lizbet Maria Time/Duration: < month Symptom Onset: Gradual Symptom Course: Unchanged Activities at Onset: Light Context: Home Past Medical History - Provider Review Nursing Documentation Reviewed: Yes - Infectious Disease Hx of Infectious Diseases: None - Cardiac Hx Cardiac Disorders: Yes Hx Congestive Heart Failure: Yes Hx Hypertension: Yes - Pulmonary Hx Chronic Obstructive Pulmonary Disease (COPD): Yes - Neurological Hx Neurological Disorder: No Other/Comment: peripheral neuropathy - HEENT Hx HEENT Disorder: Yes (reading glasses) Hx Cataracts: Yes (cataract sx b/l lens implant age 52) - Renal Hx Renal Disorder: No - Endocrine/Metabolic Hx Endocrine Disorders: No - Hematological/Oncological Hx Blood Transfusions: No Hx Blood Transfusion Reaction: No - Integumentary Other/Comment: b/l arms multiple eccymotic areas "I bruise easily.", fell about a month ago slipped on a towel on the floor dry scab left knee surrounding skin red, fading bruises both knees from "crawling on floor when I fell", bruises both arms, redness to bottom of both feet, dry skin, redness tp sides of toes 4 & 5 both feet, redness to b/l bunyons, crooked great toes both feet, ble +1 pitting edema, red coccyx - Musculoskeletal/Rheumatological Hx Arthritis: Yes - Gastrointestinal Hx Gastrointestinal Disorders: Yes (reflux/colon polyp) - Genitourinary/Gynecological Hx Genitourinary Disorders: No Hx Reproductive Disorders: Yes (hyst/r breast lumpectomy) - Psychiatric Hx Psychophysiologic Disorder: Yes Hx Anxiety: Yes Hx Depression: No Hx Emotional Abuse: No Hx Physical Abuse: No Hx Substance Use: No - Surgical History Other/Comment: R breast bx 10/26/17, right external jugular venous port 04/24/18 dr carlyle albrecht, 03/02/18 lap and 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 results as per pt, done by dr ahsan dubose - Anesthesia Hx Anesthesia Reactions: No Hx Malignant Hyperthermia: No - Suicidal Assessment Feels Threatened In Home Enviroment: No Family/Social History - Physician Review Nursing Documentation Reviewed: Yes Family/Social History: No Known Family HX Smoking Status: Never Smoked Hx Alcohol Use: No Hx Substance Use: No Hx Substance Use Treatment: No Allergies/Home Meds Allergies/Adverse Reactions: Allergies No Known Allergies Allergy (Verified 09/13/18 13:43) Home Medications: Home Meds Medication Instructions Recorded Confirmed RX: Metoprolol Tartrate [Lopressor] 50 mg PO BID 12/18/16 09/13/18 RX: hydroCHLOROthiazide 25 mg PO DAILY 12/18/16 09/13/18 [Hydrodiuril] RX: Escitalopram [Lexapro] 10 mg PO DAILY 03/21/17 09/13/18 RX: Fluticasone Propionate 1 puff IH BID 03/21/17 09/13/18 [Flovent Hfa] RX: Umeclidinium Hugo [Incruse 1 puff IH DAILY 03/21/17 09/13/18 Ellipta] RX: Aspirin [Ecotrin] 81 mg PO DAILY 02/14/18 09/13/18 Review of Systems - Physician Review All systems were reviewed & negative as marked: Yes - Review of Systems Constitutional: Normal. absent: Fevers Respiratory: Normal. absent: SOB, Cough Cardiovascular: absent: Chest Pain Gastrointestinal: Normal. absent: Abdominal Pain, Diarrhea, Nausea, Vomiting Musculoskeletal: Normal. absent: Neck Pain Neurological: Normal. absent: Headache, Dizziness Physical Exam Vital Signs Reviewed: Yes Vital Signs Temp Pulse Resp BP Pulse Ox 09/13/18 13:44 98.5 F 86 18 100/47 L 95 Temperature: Afebrile Blood Pressure: Hypotensive Pulse: Regular Respiratory Rate: Normal Appearance: Positive for: Well-Appearing, Non-Toxic, Comfortable Pain Distress: None Mental Status: Positive for: Alert and Oriented X 3 - Systems Exam Head: Present: Atraumatic, Normocephalic, Contusion (over the left eyebrow, no stepoff). No: Tenderness (no tenderness to plapation over the contusion) Pupils: Present: PERRL Extroacular Muscles: Present: EOMI Conjunctiva: Present: Normal Mouth: Present: Moist Mucous Membranes Neck: Present: Normal Range of Motion Respiratory/Chest: Present: Clear to Auscultation, Good Air Exchange, Wheezes (end expiratory wheezes), Rhonchi (diffuse rhonchi ), Other ([place] to the right upper chest wall. ). No: Respiratory Distress, Accessory Muscle Use Cardiovascular: Present: Regular Rate and Rhythm, Normal S1, S2. No: Murmurs Abdomen: No: Tenderness, Distention, Peritoneal Signs Back: Present: Normal Inspection, Decubitus Ulcer (foul odor, left buttock open wound 5x6cm, w/surrounding erythema, not draining; right buttock 2.5x3 cm not open, erythematous; + increased warmth; no streaking from either wound) Upper Extremity: Present: Normal Inspection. No: Cyanosis, Edema Lower Extremity: Present: Edema (2+ bilateral lower extremity pitting edema ) Neurological: Present: GCS=15, CN II-XII Intact, Speech Normal Skin: Present: Warm, Dry, Normal Color, Other (Patient has foul smelling wounds on buttocks. Left buttocks: stage 1, open wound. Right buttocks: skin break down 2 1/2 by 3 inches). No: Rashes Psychiatric: Present: Alert, Oriented x 3, Normal Insight, Normal Concentration Medical Decision Making ED Course and Treatment: 09/13/18 13:57 Impression: 78 year old female who presents to the emergency department for failure to thrive. Plan: -- Head CT w/o contrast -- EKG -- Labs -- Chest X-ray -- Duoneb -- Blood Culture -- Urine Culture -- Urinalysis -- Reassess and disposition Prior Visits: Notes and results from previous visits were reviewed. Progress Notes: CT head negative. Results of w/u d/w patient and daughter at bedside. Abx ordered. 09/13/18 16:[address] Inman who is aware of and agrees with plan to accept patient onto service. Requests Dr. Dubose consult for wound. - Lab Interpretations I have reviewed the lab results: Yes - RAD Interpretation Narrative RAD Interpretations (Text): 09/13/18 14:26 Chest X-ray reviewed, shows: IMPRESSION: Patchy airspace disease in the right upper lobe may represent subsegmental atelectasis however developing pneumonia cannot be excluded. Follow-up after medical management is recommended to ensure complete resolution. Background of COPD. Cardiomegaly and prominent central vasculature with moderate pulmonary venous congestion. 09/13/18 15:[address] reviewed by radiologist, shows: IMPRESSION: No acute intracranial findings. 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 Interpreted by ED Physician: Yes Type: 12 lead EKG - Scribe Statement The provider has reviewed the documentation as recorded by the Scribe Laverne Meyer Provider Scribe Attestation: All medical record entries made by the Scribe were at my direction and personally dictated by me. I have reviewed the chart and agree that the record accurately reflects my personal performance of the history, physical exam, medical decision making, and the department course for this patient. I have also personally directed, reviewed, and agree with the discharge instructions and disposition. Disposition/Present on Arrival - Present on Arrival Any Indicators Present on Arrival: Yes History of DVT/PE: No History of Uncontrolled Diabetes: No Urinary Catheter: No History of Decub. Ulcer: Yes History Surgical Site Infection Following: None - Disposition Have Diagnosis and Disposition been Completed?: Yes Diagnosis: Failure to thrive, Hyponatremia, Decubitus skin ulcer, Anemia, Pneumonia Disposition: HOSPITALIZED Disposition Time: 16:35 Patient Plan: Admission Condition: STABLE
--- NOTE | 2018-09-13 14:24 | RAD ---
Date of service: 09/13/2018 HISTORY: Wheezing COMPARISON: 08/26/2018 FINDINGS: Right-sided central venous catheter terminates at the cavoatrial junction. LUNGS: The lungs are hyperinflated and there is peribronchial thickening with chronic changes in both lungs. There is patchy airspace disease in the right upper lobe. There is moderate pulmonary venous congestion with redistribution. There is multifocal linear scarring in the lungs. PLEURA: No pleural effusions or pneumothorax. CARDIOVASCULAR: Persistent mild cardiomegaly and prominent central vasculature. There is unfolding of the aorta. There are aortic atherosclerotic calcifications present. OSSEOUS STRUCTURES: Within normal limits for the patient's age. VISUALIZED UPPER ABDOMEN: Normal. OTHER FINDINGS: There are multiple surgical clips in the right axilla. IMPRESSION: Patchy airspace disease in the right upper lobe may represent subsegmental atelectasis however developing pneumonia cannot be excluded. Follow-up after medical management is recommended to ensure complete resolution. Background of COPD. Cardiomegaly and prominent central vasculature with moderate pulmonary venous congestion.
[2018-09-13 15:21] LABS: HEMOGLOBIN 8.7 g/dL (12.0-16.0); LYMPH # 0.6 (1.2-3.4); MEAN CELL VOLUME 96.2 fl (80.0-105.0); MEAN CORPUSCULAR HEMOGLOBIN 29.9 pg (25.0-35.0); MEAN CORPUSCULAR HGB CONC 31.1 g/dl (31.0-37.0); MEAN PLATELET VOLUME 9.5 fl (7.0-11.0); MONO # 0.7 (0.1-0.6); MONO % 8.2 % (1.0-6.0); RBC 2.91 10^6/uL (3.5-6.1); RED CELL DISTRIBUTION WIDTH 16.6 % (11.5-14.5)
[2018-09-13 15:43] LABS: B-TYPE NATRIURETIC PEPTIDE 2050 pg/mL (0-450); TROPONIN I < 0.01 ng/mL
--- NOTE | 2018-09-13 15:47 | CT ---
Date of service: 09/13/2018 PROCEDURE: CT HEAD WITHOUT CONTRAST. HISTORY: head injury COMPARISON: None available. TECHNIQUE: Axial computed tomography images were obtained through the head/brain without intravenous contrast. Radiation dose: Total exam DLP = 970.88 mGy-cm. This CT exam was performed using one or more of the following dose reduction techniques: Automated exposure control, adjustment of the mA and/or kV according to patient size, and/or use of iterative reconstruction technique. FINDINGS: HEMORRHAGE: No intracranial hemorrhage. BRAIN: No mass effect or edema. No atrophy or chronic microvascular ischemic changes. VENTRICLES: Unremarkable. No hydrocephalus. CALVARIUM: Unremarkable. PARANASAL SINUSES: Unremarkable as visualized. No significant inflammatory changes. MASTOID AIR CELLS: There opacification of the right mastoid air cells and right middle ear cavity consistent with otomastoiditis OTHER FINDINGS: None. IMPRESSION: No acute intracranial findings. There opacification of the right mastoid air cells and right middle ear cavity consistent with otomastoiditis
[2018-09-13 15:59] LABS: ALB/GLOB RATIO 1.1 (1.1-1.8); ALBUMIN 2.6 g/dL (3.0-4.8); ALT/SGPT 37 U/L (7-56); AST/SGOT 59 U/L (14-36); BLOOD UREA NITROGEN 10 mg/dL (7-21); CALCIUM 8.5 mg/dL (8.4-10.5); GFR NON-AFRICAN AMERICAN > 60
[2018-09-13 16:34] LABS: CK-MB 2.2 ng/mL (0.0-3.6)
[2018-09-13] MEDS ORDERED: Piperacill/Tazo 4.5gm in NS 4.5 GM/100 ML BAG IVPB STA (16:37)
[2018-09-13] MEDS ORDERED: Vancomycin 1gm in NS 250ml 1 GM/250 ML BAG IVPB STA (16:37)
--- NOTE | 2018-09-13 17:46 | CP.PCM.CON ---
History of Present Illness - History of Present Illness History of Present Illness: Surgery consult note. Dr. Peters 78yo F with PMHx of Metastatic Breast CA, COPD, Pulm HTN, CKD, PVD, GERD, who was admitted to the hospital due to failure to thrive. Patient reports a sacral decubitus and surgical consult was obtained. Patinet states that the pain has been getting worse due to the pressure sore. Patient denies any fevers or chills. Denies any discharge. No CP/SOB. No headache, dizziness. No N/V/D. No Abd pain. PMHx: Metastatic Breast CA, COPD, Pulm HTN, CKD, PVD, GERD PSHx: Right sided Lumpectomy, Polypectomy, Right colectomy for ademoma, Port-a-cath Family Hx: non-contributory Social Hx: Denies NKDA Review of Systems - Review of Systems All systems: reviewed and no additional remarkable complaints except - Constitutional Constitutional: Fatigue, Malaise. absent: Chills, Fever - Breasts Breasts: absent: Mass, Pain - Cardiovascular Cardiovascular: absent: Chest Pain, Diaphoresis, Dyspnea - Respiratory Respiratory: absent: Cough, Dyspnea - Gastrointestinal Gastrointestinal: absent: Abdominal Pain, Belching - Reproductive: Female Reproductive:Female: absent: Amenorrhea - Integumentary Integumentary: As Per HPI Past Patient History - Infectious Disease Hx of Infectious Diseases: None - Past Social History Smoking Status: Never Smoked - CARDIAC Hx Cardiac Disorders: Yes Hx Congestive Heart Failure: Yes Hx Hypertension: Yes - PULMONARY Hx Chronic Obstructive Pulmonary Disease (COPD): Yes - NEUROLOGICAL Hx Neurological Disorder: No Other/Comment: peripheral neuropathy - HEENT Hx HEENT Problems: Yes (reading glasses) Hx Cataracts: Yes (cataract sx b/l lens implant age 52) - RENAL Hx Chronic Kidney Disease: No - ENDOCRINE/METABOLIC Hx Endocrine Disorders: No - HEMATOLOGICAL/ONCOLOGICAL Hx Blood Transfusions: No Hx Blood Transfusion Reaction: No - INTEGUMENTARY Other/Comment: b/l arms multiple eccymotic areas "I bruise easily.", fell about a month ago slipped on a towel on the floor dry scab left knee surrounding skin red, fading bruises both knees from "crawling on floor when I fell", bruises both arms, redness to bottom of both feet, dry skin, redness tp sides of toes 4 & 5 both feet, redness to b/l bunyons, crooked great toes both feet, ble +1 pitting edema, red coccyx - MUSCULOSKELETAL/RHEUMATOLOGICAL Hx Arthritis: Yes - GASTROINTESTINAL Hx Gastrointestinal Disorders: Yes (reflux/colon polyp) - GENITOURINARY/GYNECOLOGICAL Hx Genitourinary Disorders: No Hx Reproductive Disorders: Yes (hyst/r breast lumpectomy) - PSYCHIATRIC Hx Psychophysiologic Disorder: Yes Hx Anxiety: Yes Hx Depression: No Hx Emotional Abuse: No Hx Physical Abuse: No Hx Substance Use: No - SURGICAL HISTORY Other/Comment: R breast bx 10/26/17, right external jugular venous port 04/24/18 dr carlyle albrecht, 03/02/18 lap and 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 results as per pt, done by dr ahsan peters - ANESTHESIA Hx Anesthesia Reactions: No Hx Malignant Hyperthermia: No Meds Allergies/Adverse Reactions: Allergies Allergy/AdvReac Type Severity Reaction Status Date / Time No Known Allergies Allergy Verified 09/13/18 13:43 - Medications Medications: Current Medications Vancomycin HCl (Vancomycin 1gm) 1 gm in 250 mls @ 167 mls/hr IVPB STAT STA; Protocol Stop: 09/13/18 18:06 Physical Exam - Constitutional Appears: Non-toxic, Cachectic, Chronically Ill - Head Exam Head Exam: ATRAUMATIC, NORMAL INSPECTION, NORMOCEPHALIC - Eye Exam Eye Exam: EOMI, Normal appearance. absent: Scleral icterus - ENT Exam ENT Exam: Mucous Membranes Moist - Neck Exam Neck exam: Positive for: Normal Inspection - Respiratory Exam Respiratory Exam: NORMAL BREATHING PATTERN. absent: Accessory Muscle Use, Respiratory Distress - Cardiovascular Exam Cardiovascular Exam: RRR. absent: JVD - GI/Abdominal Exam GI & Abdominal Exam: Soft. absent: Distended, Firm, Guarding, Tenderness - Extremities Exam Extremities exam: Positive for: pedal edema - Neurological Exam Neurological exam: Alert, Oriented x3 - Psychiatric Exam Psychiatric exam: Normal Affect, Normal Mood - Skin Additional comments: sacral decubitus, located left of midline; approximately 5cm x 5cm with soft, dry overlying necrotic skin. No induration. No fluctuance. Results - Vital Signs Recent Vital Signs: Last Vital Signs Temp 98.5 F 09/13/18 17:27 Pulse 84 09/13/18 17:27 Resp 19 09/13/18 17:27 BP 93/57 L 09/13/18 17:27 Pulse Ox 95 09/13/18 17:27 - Labs Result Diagrams: 09/13/18 15:09 09/13/18 15:09 Labs: Laboratory Results - last 24 hr 09/13/18 09/13/18 15:09 15:09 WBC 8.0 D RBC 2.91 L Hgb 8.7 L Hct 28.0 L MCV 96.2 MCH 29.9 MCHC 31.1 RDW 16.6 H Plt Count 237 MPV 9.5 Neut % (Auto) 84.8 H Lymph % (Auto) 7.0 L [place] % (Auto) 8.2 H Eos % (Auto) 0.0 L Baso % (Auto) 0.0 Lymph # (Auto) 0.6 L [place] # (Auto) 0.7 H Eos # (Auto) 0.0 Baso # (Auto) 0.00 Absolute Neuts (auto) 6.74 H Sodium 129 L Potassium 4.0 Chloride 96 L Carbon Dioxide 23 Anion Gap 14 BUN 10 Creatinine 0.6 L Est GFR ( Amer) > 60 Est GFR (Non-Af Amer) > 60 Random Glucose 64 L Calcium 8.5 Magnesium 1.8 Total Bilirubin 0.8 AST 59 H D ALT 37 Alkaline Phosphatase 83 Lactate Dehydrogenase 818 H Total Creatine Kinase 239 H CK-MB (CK-2) 2.2 CK-MB (CK-2) % Cancelled Troponin I < 0.01 NT-Pro-B Natriuret Pep 2050 H Total Protein 5.0 L Albumin 2.6 L Globulin 2.3 Albumin/Globulin Ratio 1.1 Assessment & Plan - Assessment and Plan (Free Text) Assessment: 78yo F with sacral decubitus ulcer Plan: - Lidocaine gel to area daily with optifoam dressing to cover. - Air mattress - q2 turn and repositioning Further recs as per Dr. Fran Martines PGY2 surgery
[2018-09-13] MEDS ORDERED: Albuterol 0.083% Inhal Sol (2.5 mg/3 mL) UD IH PRN ×2 (19:19→19:25)
[2018-09-13] MEDS: Arformoterol 15 mcg/2 ml Inh Sol IH SCH (19:59)
[2018-09-13] MEDS ORDERED: Albuterol 0.083% Inhal Sol (2.5 mg/3 mL) UD IH SCH (20:00)
[2018-09-13] MEDS: Vancomycin 1gm in NS 250ml 1 GM/250 ML BAG IVPB SCH (20:02)
[2018-09-13] MEDS: oxyCODONE 10 mg Immediate Release Tab PO PRN (20:06)
[2018-09-13] MEDS: Sildenafil 20 MG TAB PO SCH (20:06)
[2018-09-13] MEDS ORDERED: Influenza Vaccine 60 mcg/0.5 mL SYR (4YR UP) IM ONE (21:12)
--- NOTE | 2018-09-13 22:12 | HP ---
DATE OF EXAM: 09/13/2018 HISTORY OF PRESENT ILLNESS: Patient is [address] Phillips today that she is having back pain. She is having difficulty walking and her back is getting worse. Patient was just discharged 2 days ago. She was offered to go to [facility], but she refused; however, she want to be transferred to [facility] now. She complain of back pain. She came complaining of burning sensation in her wound area. She denies any fever or chills. No history of nausea or vomiting. She does complain of decreased appetite. PAST MEDICAL HISTORY: Significant for coronary artery disease status post open heart surgery, COPD, degenerative disk disease, status post fall and had T5 compression fracture, metastatic breast CA. Patient's breathing is very limited. PAST SURGICAL HISTORY: Significant for right breast lumpectomy and partial colectomy. ALLERGY: SHE DENIES ALLERGY TO ANY MEDICATION. MEDICATION AT HOME: She is on Lexapro 10 mg daily, aspirin 81 daily, amiodarone 200 daily, Lopressor 50 mg twice a day, hydrochlorothiazide 25 daily. SOCIAL HISTORY: She has history of smoking, but quit 2 years ago. Socially drinks. PHYSICAL EXAMINATION: GENERAL: She is awake, alert, oriented. Able to communicate. VITAL SIGNS: She is afebrile. Pulse 89, respiration 18, blood pressure 115/65. LUNGS: Bilateral fair airflow, few expiratory rhonchi posteriorly. ABDOMEN: Soft and nontender. No rebound. No guarding. NEUROLOGIC: Patient is awake, alert, oriented, able to communicate. Bilateral legs +2 edema. SKIN: She has bilateral multiple ecchymotic spots and she has healing bruise on her both knees. LABORATORY DATA: WBC is 8.0, hemoglobin 8.7, hematocrit 28, platelet 237. Chemistry, sodium 129, potassium 4.0, chloride 96, CO2 23, BUN 10, creatinine 0.6, blood sugar of 64. LDH is 818. CPK 239. AST 59. BNP 2050. She had CT scan of the head done that shows no acute intracranial abnormality. X-ray chest in the right upper lobe, probably subsegmental atelectasis versus developing pneumonia, COPD changes. ASSESSMENT: 1. Right upper lung infiltrate. 2. Worsening sacral decubiti. 3. Deconditioning and difficulty walking. 4. Metastatic breast cancer. 5. Recent kyphoplasty. 6. Peptic ulcer disease. 7. Pulmonary hypertension. 8. Chronic obstructive pulmonary disease. PLAN: The patient will be admitted. We will start nebulizer treatment. Start IV antibiotic, local wound care. ID consult by Dr. Levine and also request surgical consult and followup the patient in a.m. Charla Inman MD
[2018-09-14] MEDS: Pantoprazole 40 mg EC Tab PO SCH (05:59)
[2018-09-14] MEDS: oxyCODONE 10 mg Immediate Release Tab PO PRN (06:09)
[2018-09-14] MEDS: Arformoterol 15 mcg/2 ml Inh Sol IH SCH ×2 (07:28→19:35)
[2018-09-14] MEDS: Vancomycin 1gm in NS 250ml 1 GM/250 ML BAG IVPB SCH ×2 (07:41→19:31)
--- NOTE | 2018-09-14 08:15 | CARD ---
APPROVED REPORT Date of service: 09/13/2018 EKG Measurement Heart [id number] KS 140P [id number] <Conclusion> Normal sinus rhythm Right bundle branch block T wave abnormality, consider lateral ischemia Abnormal ECG
[2018-09-14 08:45] LABS: HEMOGLOBIN 8.6 g/dL (12.0-16.0); MEAN CELL VOLUME 96.4 fl (80.0-105.0); MEAN CORPUSCULAR HEMOGLOBIN 30.8 pg (25.0-35.0); MEAN PLATELET VOLUME 9.4 fl (7.0-11.0); RBC 2.79 10^6/uL (3.5-6.1); RED CELL DISTRIBUTION WIDTH 16.7 % (11.5-14.5); WHITE BLOOD COUNT 8.5 10^3/uL (4.5-11.0)
[2018-09-14 08:47] LABS: BLOOD UREA NITROGEN 11 mg/dL (7-21); CALCIUM 8.4 mg/dL (8.4-10.5); GFR NON-AFRICAN AMERICAN > 60
[2018-09-14] MEDS: Silver Sulfadiazine 1% Cream (25 gm) TP SCH (11:24)
[2018-09-14] MEDS: POLYETHYLENE GLYCOL 3350 17 GM/Dose PACKET PO SCH ×2 (11:52→19:32)
[2018-09-14] MEDS: Sildenafil 20 MG TAB PO SCH ×2 (11:53→19:30)
[2018-09-14] MEDS ORDERED: Albuterol-Ipratrop 3 mg / 0.5 (3 ml) UD IH STA (12:21)
[2018-09-14 12:44] LABS: URINE BILIRUBIN NEGATIVE (NEGATIVE); URINE BLOOD NEGATIVE (NEGATIVE); URINE GLUCOSE (UA) NEGATIVE (NEGATIVE); URINE LEUKOCYTE ESTERASE TRACE Leu/uL (NEGATIVE); URINE PROTEIN NEGATIVE mg/dL (<30 mg/dL); URINE UROBILINOGEN 0.2 E.U./dL (<1 E.U./dL)
[2018-09-14 12:53] LABS: URINE APPEARANCE SLIGHT-CLOUDY (CLEAR); URINE COLOR YELLOW (YELLOW)
[2018-09-14 12:58] LABS: URINE AMORPHOUS SEDIMENT MODERATE /hpf; URINE BACTERIA LARGE /hpf
--- NOTE | 2018-09-14 13:59 | CP.PCM.APN ---
Subjective - Date & Time of Evaluation Date of Evaluation: 09/14/18 Time of Evaluation: 11:50 - Subjective Subjective: Pt. seen and examined in bed, appears weak, pale, wheezes heard, Sounds to be congested, with excessive oral secretions . Denied shortness of breath or distress. Objective - Vital Signs/Intake and Output Vital Signs (last 24 hours): Temp Pulse Resp BP Pulse Ox 98.6 F 73 18 104/57 L 94 L 09/14/18 10:07 09/14/18 12:02 09/14/18 10:07 09/14/18 12:02 09/14/18 10:07 - Medications Medications: Current Medications Albuterol/Ipratropium (Duoneb 3 Mg/0.5 Mg (3 Ml) Ud) 3 ml IH [id number] [facility] Arformoterol Tartrate (Brovana) 15 mcg IH [id number] [facility] Last Admin: 09/14/18 07:28 Dose: 15 mcg Aspirin (Ecotrin) 81 mg PO DAILY [facility] Last Admin: 09/14/18 11:52 Dose: 81 mg Atorvastatin Calcium (Lipitor) 20 mg PO DIN [facility] Cyclobenzaprine HCl (Flexeril) 5 mg PO BID [facility] Last Admin: 09/14/18 11:53 Dose: 5 mg Doxycycline Hyclate (Doryx) 100 mg PO Q12 [facility]; Protocol Last Admin: 09/14/18 11:52 Dose: 100 mg Escitalopram Oxalate (Lexapro) 10 mg PO DAILY [facility] Last Admin: 09/14/18 11:52 Dose: 10 mg Famotidine (Pepcid) 20 mg PO 1000,2200 [facility] Last Admin: 09/14/18 11:52 Dose: 20 mg Vancomycin HCl (Vancomycin 1gm) 1 gm in 250 mls @ 167 mls/hr IVPB Q12H [facility]; Protocol Last Admin: 09/14/18 07:41 Dose: 167 mls/hr Cefepime HCl (Maxipime 1gm) 1 gm in 100 mls @ 100 mls/hr IVPB Q8 [facility]; Protocol Lidocaine HCl (Xylocaine 2% (Uro-Jet)) 1 ea TOP DAILY [facility] Methylprednisolone (Solu-Medrol) 40 mg IVP Q8 [facility] Metoprolol Tartrate (Lopressor) 50 mg PO BID [facility] Last Admin: 09/14/18 12:02 Dose: Not Given Montelukast Sodium (Singulair) [address] [facility] Last Admin: 09/13/18 22:54 Dose: 10 mg Oxycodone HCl (Oxycodone Immediate Release Tab) 10 mg PO Q6H PRN PRN Reason: Pain, moderate (4-7) Last Admin: 09/14/18 06:09 Dose: 10 mg Pantoprazole Sodium (Protonix Ec Tab) 40 mg PO 0600 [facility] Last Admin: 09/14/18 05:59 Dose: 40 mg Polyethylene Glycol (Miralax) 17 gm PO BID [facility] Last Admin: 09/14/18 11:52 Dose: 17 gm Pregabalin (Lyrica) [address] [facility] Last Admin: 09/13/18 22:54 Dose: 50 mg Sildenafil Citrate (Revatio) 20 mg PO BID [facility] Last Admin: 09/14/18 11:53 Dose: 20 mg Silver Sulfadiazine (Silvadene 1% 25 Gm) 0 gm TP DAILY [facility] - Labs Labs: 09/14/18 08:20 09/14/18 08:20 - Constitutional Appears: Non-toxic - Head Exam Head Exam: NORMOCEPHALIC - Eye Exam Eye Exam: Normal appearance - Neck Exam Neck Exam: Full ROM - Respiratory Exam Respiratory Exam: Wheezes - Cardiovascular Exam Cardiovascular Exam: REGULAR RHYTHM, +S1, +S2 - GI/Abdominal Exam GI & Abdominal Exam: Soft, Normal Bowel Sounds - Rectal Exam Rectal Exam: Deferred - Exam Exam: absent: Circumcision, NORMAL INSPECTION, Scrotal Swelling, Testicular Tenderness, Uretheral Discharge, Testicular Vertical Lie, Bladder Distension External exam: absent: Ecchymosis, Erythema, Lacerations, Lesions, NORMAL EXTERNAL EXAM, Swelling Speculum exam: absent: Cervical Discharge, Erythema, Foreign Body, Laceration, NORMAL SPECULUM EXAM, Tissue, Vaginal Bleeding, Vaginal Discharge Bimanual exam: absent: Adenexal Mass, Adnexal, Cervical Motion Tendernes, NORMAL BIMANUAL EXAM, Uterine Enlargement, Uterine Tenderness - Extremities Exam Extremities Exam: Pedal Edema Additional comments: b/l edema noted +2-+3. right heel with ulcer, drainage noted. - Back Exam Back Exam: Full ROM - Psychiatric Exam Psychiatric exam: Flat Affect - Skin Skin Exam: Pallor Additional comments: sacral decub noted to left side, with sloughing noted. Assessment and Plan - Assessment and Plan (Free Text) Assessment: ITS Impressions Chest X-Ray 09/13/18 13:49 IMPRESSION: Patchy airspace disease in the right upper lobe may represent subsegmental atelectasis however developing pneumonia cannot be excluded. Follow-up after medical management is recommended to ensure complete resolution. Background of COPD. Cardiomegaly and prominent central vasculature with moderate pulmonary venous congestion. Head CT 09/13/18 13:54 IMPRESSION: No acute intracranial findings. There opacification of the right mastoid air cells and right middle ear cavity consistent with otomastoiditis Assessment: 78 year old female, whose past medical history includes hypertension, CAD with CABG, COPD, h/o CAP ( November 2016), multi level degenerative disc, and metastatic breast cancer, who presents to the emergency department for admission. Patient was discharged from the hospital yesterday, Dr. Phillips referred to ED for failure to thrive, cxr showed right upper lobe pneumonia with patchy airspace disease, and mod congestion, admitted with pneumonia , chf for further eval and treatment,with I.D. consulted. Plan: 1. Pneumonia right upper lobe Antibiotics per I.D blood cultures, sputum cx pending, procal pending 2. CHF , likely diastolic. 3. COPD Exac. with wheezes noted, Duonebs, Steroids. Monitor oxygen sat Maintain head of bed up 4. Sacral ulcer Eval . by Surgery, plan bedside debridement when optimized medically. 5. Right heel ulcer 6. Anemia, monitor h/h, stool ob. pending. Will continue to monitor clinical status and follow closely. Will discuss with consultants and PMD.
--- NOTE | 2018-09-14 14:23 | CP.PCM.CON ---
History of Present Illness - History of Present Illness History of Present Illness: Covering Dr. Phillips 78 year old female with a history of COPD, PVD, CKD, recent compression fracture s/p kyphoplasty, recent UTI treatment, early stage breast cancer (ER+, HER2-), s/p adjuvant chemotherapy, awaiting radiation, admitted with pneumonia. The patient reports to continued fatigue but improvement in her shortness of breath. Past medical history: COPD, PVC, CKD, breast cancer Past surgical history: Portacath, lumpectomy with sentinel LN biopsy Family history: Breast and ovarian cancer in the family Social history: Former tobacco abuse Allergies: NKA Review of systems: All remaining review of systems including HEENT, cardiovascular, respiratory, gastrointestinal, genitourinary, musculoskeletal, dermatologic, neurologic, and psychiatric are negative unless mentioned in the HPI. Past Patient History - Infectious Disease Hx of Infectious Diseases: None - Past Social History Smoking Status: Never Smoked - CARDIAC Hx Cardiac Disorders: Yes Hx Congestive Heart Failure: Yes Hx Hypertension: Yes - PULMONARY Hx Chronic Obstructive Pulmonary Disease (COPD): Yes - NEUROLOGICAL Hx Neurological Disorder: No Other/Comment: peripheral neuropathy - HEENT Hx HEENT Problems: Yes (reading glasses) Hx Cataracts: Yes (cataract sx b/l lens implant age 52) - RENAL Hx Chronic Kidney Disease: No - ENDOCRINE/METABOLIC Hx Endocrine Disorders: No - HEMATOLOGICAL/ONCOLOGICAL Hx Blood Transfusions: No Hx Blood Transfusion Reaction: No - INTEGUMENTARY Other/Comment: b/l arms multiple eccymotic areas "I bruise easily.", fell about a month ago slipped on a towel on the floor dry scab left knee surrounding skin red, fading bruises both knees from "crawling on floor when I fell", bruises both arms, redness to bottom of both feet, dry skin, redness tp sides of toes 4 & 5 both feet, redness to b/l bunyons, crooked great toes both feet, ble +1 pitting edema, red coccyx - MUSCULOSKELETAL/RHEUMATOLOGICAL Hx Arthritis: Yes - GASTROINTESTINAL Hx Gastrointestinal Disorders: Yes (reflux/colon polyp) - GENITOURINARY/GYNECOLOGICAL Hx Genitourinary Disorders: No Hx Reproductive Disorders: Yes (hyst/r breast lumpectomy) - PSYCHIATRIC Hx Psychophysiologic Disorder: Yes Hx Anxiety: Yes Hx Depression: No Hx Emotional Abuse: No Hx Physical Abuse: No Hx Substance Use: No - SURGICAL HISTORY Other/Comment: R breast bx 10/26/17, right external jugular venous port 04/24/18 dr carlyle albrecht, 03/02/18 lap and 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 results as per pt, done by dr ahsan dubose - ANESTHESIA Hx Anesthesia Reactions: No Hx Malignant Hyperthermia: No Meds Allergies/Adverse Reactions: Allergies Allergy/AdvReac Type Severity Reaction Status Date / Time No Known Allergies Allergy Verified 09/13/18 13:43 - Medications Medications: Current Medications Albuterol/Ipratropium (Duoneb 3 Mg/0.5 Mg (3 Ml) Ud) 3 ml IH [id number] [facility] Arformoterol Tartrate (Brovana) 15 mcg IH [id number] [facility] Last Admin: 09/14/18 07:28 Dose: 15 mcg Aspirin (Ecotrin) 81 mg PO DAILY [facility] Last Admin: 09/14/18 11:52 Dose: 81 mg Atorvastatin Calcium (Lipitor) 20 mg PO DIN [facility] Cyclobenzaprine HCl (Flexeril) 5 mg PO BID [facility] Last Admin: 09/14/18 11:53 Dose: 5 mg Doxycycline Hyclate (Doryx) 100 mg PO Q12 [facility]; Protocol Last Admin: 09/14/18 11:52 Dose: 100 mg Escitalopram Oxalate (Lexapro) 10 mg PO DAILY [facility] Last Admin: 09/14/18 11:52 Dose: 10 mg Famotidine (Pepcid) 20 mg PO 1000,2200 [facility] Last Admin: 09/14/18 11:52 Dose: 20 mg Vancomycin HCl (Vancomycin 1gm) 1 gm in 250 mls @ 167 mls/hr IVPB Q12H [facility]; Protocol Last Admin: 09/14/18 07:41 Dose: 167 mls/hr Cefepime HCl (Maxipime 1gm) 1 gm in 100 mls @ 100 mls/hr IVPB Q8 [facility]; Protocol Lidocaine HCl (Xylocaine 2% (Uro-Jet)) 1 ea TOP DAILY [facility] Methylprednisolone (Solu-Medrol) 40 mg IVP Q8 [facility] Metoprolol Tartrate (Lopressor) 50 mg PO BID [facility] Last Admin: 09/14/18 12:02 Dose: Not Given Montelukast Sodium (Singulair) 10 mg PO HS [facility] Last Admin: 09/13/18 22:54 Dose: 10 mg Oxycodone HCl (Oxycodone Immediate Release Tab) 10 mg PO Q6H PRN PRN Reason: Pain, moderate (4-7) Last Admin: 09/14/18 06:09 Dose: 10 mg Pantoprazole Sodium (Protonix Ec Tab) 40 mg PO 0600 [facility] Last Admin: 09/14/18 05:59 Dose: 40 mg Polyethylene Glycol (Miralax) 17 gm PO BID [facility] Last Admin: 09/14/18 11:52 Dose: 17 gm Pregabalin (Lyrica) 50 mg PO HS [facility] Last Admin: 09/13/18 22:54 Dose: 50 mg Sildenafil Citrate (Revatio) 20 mg PO BID [facility] Last Admin: 09/14/18 11:53 Dose: 20 mg Silver Sulfadiazine (Silvadene 1% 25 Gm) 0 gm TP DAILY [facility] Physical Exam - Head Exam Head Exam: ATRAUMATIC - Eye Exam Eye Exam: Normal appearance - ENT Exam ENT Exam: Mucous Membranes Dry - Respiratory Exam Respiratory Exam: Decreased Breath Sounds - Cardiovascular Exam Cardiovascular Exam: +S1, +S2 - GI/Abdominal Exam GI & Abdominal Exam: Normal Bowel Sounds - Extremities Exam Extremities exam: Positive for: pedal edema - Psychiatric Exam Psychiatric exam: Normal Affect, Normal Mood - Skin Skin Exam: Warm Results - Vital Signs Recent Vital Signs: Last Vital Signs Temp 98.6 F 09/14/18 10:07 Pulse 73 09/14/18 12:02 Resp 18 09/14/18 10:07 BP 104/57 L 09/14/18 12:02 Pulse Ox 94 L 09/14/18 10:07 - Labs Result Diagrams: 09/14/18 08:20 09/14/18 08:20 Labs: Laboratory Results - last 24 hr 09/13/18 09/13/18 09/14/18 15:09 15:09 08:20 WBC 8.0 D RBC 2.91 L Hgb 8.7 L Hct 28.0 L MCV 96.2 MCH 29.9 MCHC 31.1 RDW 16.6 H Plt Count 237 MPV 9.5 Neut % (Auto) 84.8 H Lymph % (Auto) 7.0 L [place] % (Auto) 8.2 H Eos % (Auto) 0.0 L Baso % (Auto) 0.0 Lymph # (Auto) 0.6 L [place] # (Auto) 0.7 H Eos # (Auto) 0.0 Baso # (Auto) 0.00 Absolute Neuts (auto) 6.74 H Sodium 129 L Potassium 4.0 Chloride 96 L Carbon Dioxide 23 Anion Gap 14 BUN 10 Creatinine 0.6 L Est GFR ( Amer) > 60 Est GFR (Non-Af Amer) > 60 Random Glucose 64 L Calcium 8.5 Magnesium 1.8 Total Bilirubin 0.8 AST 59 H D ALT 37 Alkaline Phosphatase 83 Lactate Dehydrogenase 818 H Total Creatine Kinase 239 H CK-MB (CK-2) 2.2 CK-MB (CK-2) % Cancelled Troponin I < 0.01 NT-Pro-B Natriuret Pep 2050 H Total Protein 5.0 L Albumin 2.6 L Globulin 2.3 Albumin/Globulin Ratio 1.1 Procalcitonin 0.24 Urine Color Urine Appearance Urine pH Ur Specific [place] Urine Protein Urine Glucose (UA) Urine Ketones Urine Blood Urine Nitrate Urine Bilirubin Urine Urobilinogen Ur Leukocyte Esterase Urine RBC Urine WBC Ur Epithelial Cells Amorphous Sediment Urine Bacteria Urine Other 09/14/18 09/14/18 09/14/18 08:20 08:20 12:30 WBC 8.5 RBC 2.79 L Hgb 8.6 L Hct 26.9 L MCV 96.4 MCH 30.8 MCHC 32.0 RDW 16.7 H Plt Count 262 MPV 9.4 Neut % (Auto) Lymph % (Auto) [place] % (Auto) Eos % (Auto) Baso % (Auto) Lymph # (Auto) [place] # (Auto) Eos # (Auto) Baso # (Auto) Absolute Neuts (auto) Sodium 130 L Potassium 3.5 L Chloride 96 L Carbon Dioxide 27 Anion Gap 10 BUN 11 Creatinine 0.7 Est GFR ( Amer) > 60 Est GFR (Non-Af Amer) > 60 Random Glucose 62 L Calcium 8.4 Magnesium Total Bilirubin AST ALT Alkaline Phosphatase Lactate Dehydrogenase Total Creatine Kinase CK-MB (CK-2) CK-MB (CK-2) % Troponin I NT-Pro-B Natriuret Pep Total Protein Albumin Globulin Albumin/Globulin Ratio Procalcitonin Urine Color Yellow Urine Appearance Slight-cloudy Urine pH 5.0 Ur Specific [place] >= 1.030 Urine Protein Negative Urine Glucose (UA) Negative Urine Ketones Negative Urine Blood Negative Urine Nitrate Positive H Urine Bilirubin Negative Urine Urobilinogen 0.2 Ur Leukocyte Esterase Trace H Urine RBC 1 - 3 H Urine WBC 5 - 10 H Ur Epithelial Cells 6 - 8 H Amorphous Sediment Moderate Urine Bacteria Large Urine Other Uyeast Assessment & Plan (1) Anemia Assessment and Plan: suspect chronic disease and CKD will check retic count, b12, folate, ferritin, FOBT to further characterize transfusion support PRN Status: Acute (2) Breast cancer Assessment and Plan: outpatient radiation evaluation and treatment followed by endocrine therapy outpatient f/u with Dr. Phillips Thank you for this interesting consult. Status: Acute
--- NOTE | 2018-09-14 15:12 | CP.PCM.CON ---
<José Crump - Last Filed: 09/14/18 15:39> History of Present Illness - History of Present Illness History of Present Illness: Podiatry Consult note for Dr. Denson 78 y/o female F seen at bedside complaining of painful posterior right heel wound. Patient states that blister began following her admission to the hospital back in March 2018. She denies any painto touch, however is unable to place any weight on it while laying in bed. She says that it has gradually worsened as there are no dressing changes being performed. S She is AAO x 3 and NAD at time of visit. Denies any acuter overnight events or new pedal complaints at this time. Denies any recent N/V/F/C/CP/SOB/D/posterior calf pain when squeezed. Review of Systems - Review of Systems All systems: reviewed and no additional remarkable complaints except Review of Systems: As per HPI Past Patient History - Infectious Disease Hx of Infectious Diseases: None - Past Social History Smoking Status: Never Smoked - CARDIAC Hx Cardiac Disorders: Yes Hx Congestive Heart Failure: Yes Hx Hypertension: Yes - PULMONARY Hx Chronic Obstructive Pulmonary Disease (COPD): Yes - NEUROLOGICAL Hx Neurological Disorder: No Other/Comment: peripheral neuropathy - HEENT Hx HEENT Problems: Yes (reading glasses) Hx Cataracts: Yes (cataract sx b/l lens implant age 52) - RENAL Hx Chronic Kidney Disease: No - ENDOCRINE/METABOLIC Hx Endocrine Disorders: No - HEMATOLOGICAL/ONCOLOGICAL Hx Blood Transfusions: No Hx Blood Transfusion Reaction: No - INTEGUMENTARY Other/Comment: b/l arms multiple eccymotic areas "I bruise easily.", fell about a month ago slipped on a towel on the floor dry scab left knee surrounding skin red, fading bruises both knees from "crawling on floor when I fell", bruises both arms, redness to bottom of both feet, dry skin, redness tp sides of toes 4 & 5 both feet, redness to b/l bunyons, crooked great toes both feet, ble +1 pitting edema, red coccyx - MUSCULOSKELETAL/RHEUMATOLOGICAL Hx Arthritis: Yes - GASTROINTESTINAL Hx Gastrointestinal Disorders: Yes (reflux/colon polyp) - GENITOURINARY/GYNECOLOGICAL Hx Genitourinary Disorders: No Hx Reproductive Disorders: Yes (hyst/r breast lumpectomy) - PSYCHIATRIC Hx Psychophysiologic Disorder: Yes Hx Anxiety: Yes Hx Depression: No Hx Emotional Abuse: No Hx Physical Abuse: No Hx Substance Use: No - SURGICAL HISTORY Other/Comment: R breast bx 10/26/17, right external jugular venous port 04/24/18 dr carlyle albrecht, 03/02/18 lap and 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 results as per pt, done by dr ahsan dubose - ANESTHESIA Hx Anesthesia Reactions: No Hx Malignant Hyperthermia: No Meds Allergies/Adverse Reactions: Allergies Allergy/AdvReac Type Severity Reaction Status Date / Time No Known Allergies Allergy Verified 09/13/18 13:43 - Medications Medications: Current Medications Albuterol/Ipratropium (Duoneb 3 Mg/0.5 Mg (3 Ml) Ud) 3 ml IH [id number] [facility] Arformoterol Tartrate (Brovana) 15 mcg IH [id number] [facility] Last Admin: 09/14/18 07:28 Dose: 15 mcg Aspirin (Ecotrin) 81 mg PO DAILY [facility] Last Admin: 09/14/18 11:52 Dose: 81 mg Atorvastatin Calcium (Lipitor) 20 mg PO DIN [facility] Cyclobenzaprine HCl (Flexeril) 5 mg PO BID [facility] Last Admin: 09/14/18 11:53 Dose: 5 mg Doxycycline Hyclate (Doryx) 100 mg PO Q12 [facility]; Protocol Last Admin: 09/14/18 11:52 Dose: 100 mg Escitalopram Oxalate (Lexapro) 10 mg PO DAILY [facility] Last Admin: 09/14/18 11:52 Dose: 10 mg Famotidine (Pepcid) 20 mg PO 1000,2200 [facility] Last Admin: 09/14/18 11:52 Dose: 20 mg Vancomycin HCl (Vancomycin 1gm) 1 gm in 250 mls @ 167 mls/hr IVPB Q12H [facility]; Protocol Last Admin: 09/14/18 07:41 Dose: 167 mls/hr Cefepime HCl (Maxipime 1gm) 1 gm in 100 mls @ 100 mls/hr IVPB Q8 [facility]; Protocol Lidocaine HCl (Xylocaine 2% (Uro-Jet)) 1 ea TOP DAILY [facility] Methylprednisolone (Solu-Medrol) 40 mg IVP Q8 [facility] Metoprolol Tartrate (Lopressor) 50 mg PO BID [facility] Last Admin: 09/14/18 12:02 Dose: Not Given Montelukast Sodium (Singulair) 10 mg PO HS [facility] Last Admin: 09/13/18 22:54 Dose: 10 mg Oxycodone HCl (Oxycodone Immediate Release Tab) 10 mg PO Q6H PRN PRN Reason: Pain, moderate (4-7) Last Admin: 09/14/18 06:09 Dose: 10 mg Pantoprazole Sodium (Protonix Ec Tab) 40 mg PO 0600 [facility] Last Admin: 09/14/18 05:59 Dose: 40 mg Polyethylene Glycol (Miralax) 17 gm PO BID [facility] Last Admin: 09/14/18 11:52 Dose: 17 gm Pregabalin (Lyrica) 50 mg PO [facility] Last Admin: 09/13/18 22:54 Dose: 50 mg Sildenafil Citrate (Revatio) 20 mg PO BID [facility] Last Admin: 09/14/18 11:53 Dose: 20 mg Silver Sulfadiazine (Silvadene 1% 25 Gm) 0 gm TP DAILY [facility] Physical Exam - Constitutional Appears: Well, Non-toxic, No Acute Distress - Head Exam Head Exam: ATRAUMATIC, NORMOCEPHALIC - Extremities Exam Additional comments: RLE focused exam: Vasc: DP/PT pulses fully palpable 2/4 b/l. Skin temperature warm to warm from proximal to distal. CFT < 3 seconds to all digits b/l. No edema noted b/l Neuro: Epicritic and protective sensation grossly intact b/l Derm: Posterior right heel wound measuring 3 cm X 3 cm with 50% fibrotic and 50% granular base, superficial, negative probe to bone, positive isabel-wound erythema, positive sero-sanguinous drainage, No other open lesions, wounds, maceration, xerosis, abnormal pigmentation or abnormal growths noted b/l MSK: Pain with palpation of blister site. B/l HAV deformities noted. No other gross deformities noted. ROM WNL to all major joints b/l. MMT 5/5 in all major muscle groups b/l - Neurological Exam Neurological exam: Alert, Oriented x3 - Psychiatric Exam Psychiatric exam: Normal Affect, Normal Mood Results - Vital Signs Recent Vital Signs: Last Vital Signs Temp 98.6 F 09/14/18 10:07 Pulse 73 09/14/18 12:02 Resp 18 09/14/18 10:07 BP 104/57 L 09/14/18 12:02 Pulse Ox 94 L 09/14/18 10:07 - Labs Result Diagrams: 09/14/18 08:20 09/14/18 08:20 Labs: Laboratory Results - last 24 hr 09/13/18 09/13/18 09/14/18 15:09 15:09 08:20 WBC 8.0 D RBC 2.91 L Hgb 8.7 L Hct 28.0 L MCV 96.2 MCH 29.9 MCHC 31.1 RDW 16.6 H Plt Count 237 MPV 9.5 Neut % (Auto) 84.8 H Lymph % (Auto) 7.0 L Rankin % (Auto) 8.2 H Eos % (Auto) 0.0 L Baso % (Auto) 0.0 Lymph # (Auto) 0.6 L Rankin # (Auto) 0.7 H Eos # (Auto) 0.0 Baso # (Auto) 0.00 Absolute Neuts (auto) 6.74 H Sodium 129 L Potassium 4.0 Chloride 96 L Carbon Dioxide 23 Anion Gap 14 BUN 10 Creatinine 0.6 L Est GFR ( Amer) > 60 Est GFR (Non-Af Amer) > 60 Random Glucose 64 L Calcium 8.5 Magnesium 1.8 Total Bilirubin 0.8 AST 59 H D ALT 37 Alkaline Phosphatase 83 Lactate Dehydrogenase 818 H Total Creatine Kinase 239 H CK-MB (CK-2) 2.2 CK-MB (CK-2) % Cancelled Troponin I < 0.01 NT-Pro-B Natriuret Pep 2050 H Total Protein 5.0 L Albumin 2.6 L Globulin 2.3 Albumin/Globulin Ratio 1.1 Procalcitonin 0.24 Urine Color Urine Appearance Urine pH Ur Specific [place] Urine Protein Urine Glucose (UA) Urine Ketones Urine Blood Urine Nitrate Urine Bilirubin Urine Urobilinogen Ur Leukocyte Esterase Urine RBC Urine WBC Ur Epithelial Cells Amorphous Sediment Urine Bacteria Urine Other 09/14/18 09/14/18 09/14/18 08:20 08:20 12:30 WBC 8.5 RBC 2.79 L Hgb 8.6 L Hct 26.9 L MCV 96.4 MCH 30.8 MCHC 32.0 RDW 16.7 H Plt Count 262 MPV 9.4 Neut % (Auto) Lymph % (Auto) Rankin % (Auto) Eos % (Auto) Baso % (Auto) Lymph # (Auto) Rankin # (Auto) Eos # (Auto) Baso # (Auto) Absolute Neuts (auto) Sodium 130 L Potassium 3.5 L Chloride 96 L Carbon Dioxide 27 Anion Gap 10 BUN 11 Creatinine 0.7 Est GFR ( Amer) > 60 Est GFR (Non-Af Amer) > 60 Random Glucose 62 L Calcium 8.4 Magnesium Total Bilirubin AST ALT Alkaline Phosphatase Lactate Dehydrogenase Total Creatine Kinase CK-MB (CK-2) CK-MB (CK-2) % Troponin I NT-Pro-B Natriuret Pep Total Protein Albumin Globulin Albumin/Globulin Ratio Procalcitonin Urine Color Yellow Urine Appearance Slight-cloudy Urine pH 5.0 Ur Specific [place] >= 1.030 Urine Protein Negative Urine Glucose (UA) Negative Urine Ketones Negative Urine Blood Negative Urine Nitrate Positive H Urine Bilirubin Negative Urine Urobilinogen 0.2 Ur Leukocyte Esterase Trace H Urine RBC 1 - 3 H Urine WBC 5 - 10 H Ur Epithelial Cells 6 - 8 H Amorphous Sediment Moderate Urine Bacteria Large Urine Other Uyeast Assessment & Plan - Assessment and Plan (Free Text) Assessment: 77 y/o female seen for posterior right heel wound Plan: Patient seen and evaluated with attending Dr. Denson Afebrile, absent leukocytosis Wound Culture ordered Right Heel X-ray ordered Right heel wound cleaned with saline, and dressed with maxorb, DSD Ordered B/L Multipodus boots Infectious disease on board, continue IV Abx Podiatry will continue to follow patient while in house - Date & Time Date: 09/14/18 Time: 15:45 <Angel Denson - Last Filed: 09/15/18 11:58> Meds - Medications Medications: Current Medications Albuterol/Ipratropium (Duoneb 3 Mg/0.5 Mg (3 Ml) Ud) 3 ml IH [id number] [facility] Last Admin: 09/15/18 07:47 Dose: 3 ml Arformoterol Tartrate (Brovana) 15 mcg IH [id number] [facility] Last Admin: 09/15/18 07:46 Dose: 15 mcg Aspirin (Ecotrin) 81 mg PO DAILY [facility] Last Admin: 09/15/18 09:41 Dose: 81 mg Atorvastatin Calcium (Lipitor) 20 mg PO DIN [facility] Last Admin: 09/14/18 19:31 Dose: 20 mg Budesonide (Pulmicort Respules) 0.5 mg IH [id number] [facility] Last Admin: 09/15/18 07:47 Dose: 0.5 mg Cyclobenzaprine HCl (Flexeril) 5 mg PO BID [facility] Last Admin: 09/15/18 09:41 Dose: 5 mg Doxycycline Hyclate (Doryx) 100 mg PO Q12 [facility]; Protocol Last Admin: 09/15/18 09:41 Dose: 100 mg Escitalopram Oxalate (Lexapro) 10 mg PO DAILY [facility] Last Admin: 09/15/18 09:41 Dose: 10 mg Famotidine (Pepcid) 20 mg PO 1000,2200 [facility] Last Admin: 09/15/18 09:42 Dose: 20 mg Cefepime HCl (Maxipime 1gm) 1 gm in 100 mls @ 100 mls/hr IVPB Q8 [facility]; Protocol Last Admin: 09/15/18 05:47 Dose: 100 mls/hr Lidocaine HCl (Xylocaine 2% (Uro-Jet)) 1 ea TOP DAILY [facility] Methylprednisolone (Solu-Medrol) 40 mg IVP Q12 [facility] Last Admin: 09/15/18 09:40 Dose: 40 mg Metoprolol Tartrate (Lopressor) 50 mg PO BID [facility] Last Admin: 09/15/18 09:41 Dose: 50 mg Montelukast Sodium (Singulair) 10 mg PO HS [facility] Last Admin: 09/14/18 21:24 Dose: 10 mg Oxycodone HCl (Oxycodone Immediate Release Tab) 10 mg PO Q6H PRN PRN Reason: Pain, moderate (4-7) Last Admin: 09/15/18 09:52 Dose: 10 mg Pantoprazole Sodium (Protonix Ec Tab) 40 mg PO 0600 [facility] Last Admin: 09/15/18 05:48 Dose: 40 mg Polyethylene Glycol (Miralax) 17 gm PO BID [facility] Last Admin: 09/15/18 09:41 Dose: 17 gm Pregabalin (Lyrica) 50 mg PO HS [facility] Last Admin: 09/14/18 21:24 Dose: 50 mg Sildenafil Citrate (Revatio) 20 mg PO BID [facility] Last Admin: 09/15/18 09:41 Dose: 20 mg Silver Sulfadiazine (Silvadene 1% 25 Gm) 0 gm TP DAILY [facility] Last Admin: 09/14/18 11:24 Dose: 25 gm Results - Vital Signs Recent Vital Signs: Last Vital Signs Temp 97.9 F 09/15/18 06:00 Pulse 62 09/15/18 09:41 Resp 20 09/15/18 06:00 BP 114/61 09/15/18 09:41 Pulse Ox 98 09/15/18 06:00 - Labs Result Diagrams: 09/15/18 06:10 09/15/18 06:10 Labs: Laboratory Results - last 24 hr 09/14/18 09/14/18 09/14/18 08:20 12:30 12:30 WBC RBC Hgb Hct MCV MCH MCHC RDW Plt Count MPV Sodium Potassium Chloride Carbon Dioxide Anion Gap BUN Creatinine Est GFR ( Amer) Est GFR (Non-Af Amer) Random Glucose Calcium Total Bilirubin AST ALT Alkaline Phosphatase NT-Pro-B Natriuret Pep Total Protein Albumin Globulin Albumin/Globulin Ratio Procalcitonin 0.24 Urine Color Yellow Urine Appearance Slight-cloudy Urine pH 5.0 Ur Specific [place] >= 1.030 Urine Protein Negative Urine Glucose (UA) Negative Urine Ketones Negative Urine Blood Negative Urine Nitrate Positive H Urine Bilirubin Negative Urine Urobilinogen 0.2 Ur Leukocyte Esterase Trace H Urine RBC 1 - 3 H Urine WBC 5 - 10 H Ur Epithelial Cells 6 - 8 H Amorphous Sediment Moderate Urine Bacteria Large Urine Other Uyeast Ur L.pneumophila Ag Negative 09/15/18 09/15/18 06:10 06:10 WBC 5.6 D RBC 2.75 L Hgb 8.2 L Hct 26.3 L MCV 95.6 MCH 29.8 MCHC 31.2 RDW 16.5 H Plt Count 243 MPV 9.3 Sodium 130 L Potassium 3.8 Chloride 98 Carbon Dioxide 23 Anion Gap 13 BUN 21 Creatinine 1.5 H Est GFR ( Amer) 41 Est GFR (Non-Af Amer) 34 Random Glucose 98 Calcium 8.1 L Total Bilirubin 0.5 AST 76 H D ALT 37 Alkaline Phosphatase 67 NT-Pro-B Natriuret Pep 4760 H Total Protein 4.5 L Albumin 2.3 L Globulin 2.3 Albumin/Globulin Ratio 1.0 L Procalcitonin Urine Color Urine Appearance Urine pH Ur Specific [place] Urine Protein Urine Glucose (UA) Urine Ketones Urine Blood Urine Nitrate Urine Bilirubin Urine Urobilinogen Ur Leukocyte Esterase Urine RBC Urine WBC Ur Epithelial Cells Amorphous Sediment Urine Bacteria Urine Other Ur L.pneumophila Ag Attending/Attestation - Attestation I have personally seen and examined this patient.: Yes I have fully participated in the care of the patient.: Yes I have reviewed all pertinent clinical information: Yes
--- NOTE | 2018-09-14 15:12 | CP.PCM.CON ---
History of Present Illness - History of Present Illness History of Present Illness: 78 year old female with PMH of COPD, chronic renal failure, COPD, pulmonary HTN, PVD, GERD was recently admitted in [facility] for thoracic vertebral compression fractures S/P kyphoplasty. She was doing well in [facility] and was also treated for UTI with E. coli. A day after discharge, she was feeling weak and tired and was having some shortness of breath and cough as well as poor appetite. She denies fever or chills, no nausea or vomiting, no sore throat, no abdominal pain, no rhinorrhea, no headache or dizziness, no diarrhea, no dysuria. CXR done is showing right upper lobe patchy airspace disease and Infectious diseases consult is requested to further evaluate and manage. Review of Systems - Review of Systems All systems: reviewed and no additional remarkable complaints except (as per HPI) Past Patient History - Infectious Disease Hx of Infectious Diseases: None - Past Social History Smoking Status: Never Smoked - CARDIAC Hx Cardiac Disorders: Yes Hx Congestive Heart Failure: Yes Hx Hypertension: Yes - PULMONARY Hx Chronic Obstructive Pulmonary Disease (COPD): Yes - NEUROLOGICAL Hx Neurological Disorder: No Other/Comment: peripheral neuropathy - HEENT Hx HEENT Problems: Yes (reading glasses) Hx Cataracts: Yes (cataract sx b/l lens implant age 52) - RENAL Hx Chronic Kidney Disease: No - ENDOCRINE/METABOLIC Hx Endocrine Disorders: No - HEMATOLOGICAL/ONCOLOGICAL Hx Blood Transfusions: No Hx Blood Transfusion Reaction: No - INTEGUMENTARY Other/Comment: b/l arms multiple eccymotic areas "I bruise easily.", fell about a month ago slipped on a towel on the floor dry scab left knee surrounding skin red, fading bruises both knees from "crawling on floor when I fell", bruises both arms, redness to bottom of both feet, dry skin, redness tp sides of toes 4 & 5 both feet, redness to b/l bunyons, crooked great toes both feet, ble +1 pitting edema, red coccyx - MUSCULOSKELETAL/RHEUMATOLOGICAL Hx Arthritis: Yes - GASTROINTESTINAL Hx Gastrointestinal Disorders: Yes (reflux/colon polyp) - GENITOURINARY/GYNECOLOGICAL Hx Genitourinary Disorders: No Hx Reproductive Disorders: Yes (hyst/r breast lumpectomy) - PSYCHIATRIC Hx Psychophysiologic Disorder: Yes Hx Anxiety: Yes Hx Depression: No Hx Emotional Abuse: No Hx Physical Abuse: No Hx Substance Use: No - SURGICAL HISTORY Other/Comment: R breast bx 10/26/17, right external jugular venous port 04/24/18 dr carlyle albrecht, 03/02/18 lap and 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 results as per pt, done by dr ahsan dubose - ANESTHESIA Hx Anesthesia Reactions: No Hx Malignant Hyperthermia: No Meds Allergies/Adverse Reactions: Allergies Allergy/AdvReac Type Severity Reaction Status Date / Time No Known Allergies Allergy Verified 09/13/18 13:43 - Medications Medications: Current Medications Albuterol Sulfate (Albuterol 0.083% Inhal Talia (2.5 Mg/3 Ml) Ud) 2.5 mg IH [id number] PRN PRN Reason: sob Arformoterol Tartrate (Brovana) 15 mcg IH [id number] [facility] Last Admin: 09/13/18 19:59 Dose: 15 mcg Aspirin (Ecotrin) 81 mg PO DAILY [facility] Atorvastatin Calcium (Lipitor) 20 mg PO DIN [facility] Cyclobenzaprine HCl (Flexeril) 5 mg PO BID [facility] Last Admin: 09/13/18 20:05 Dose: 5 mg Doxycycline Hyclate (Doryx) 100 mg PO Q12 [facility]; Protocol Last Admin: 09/13/18 22:55 Dose: 100 mg Escitalopram Oxalate (Lexapro) 10 mg PO DAILY [facility] Famotidine (Pepcid) 20 mg PO 1000,2200 [facility] Last Admin: 09/13/18 22:54 Dose: 20 mg Vancomycin HCl (Vancomycin 1gm) 1 gm in 250 mls @ 167 mls/hr IVPB Q12H [facility]; Protocol Last Admin: 09/13/18 20:02 Dose: 167 mls/hr Cefepime HCl (Maxipime 1gm) 1 gm in 100 mls @ 100 mls/hr IVPB Q8 [facility]; Protocol Lidocaine HCl (Xylocaine 2% (Uro-Jet)) 1 ea TOP DAILY [facility] Metoprolol Tartrate (Lopressor) 50 mg PO BID [facility] Last Admin: 09/13/18 20:05 Dose: 50 mg Montelukast Sodium (Singulair) 10 mg PO HS [facility] Last Admin: 09/13/18 22:54 Dose: 10 mg Oxycodone HCl (Oxycodone Immediate Release Tab) 10 mg PO Q6H PRN PRN Reason: Pain, moderate (4-7) Last Admin: 09/14/18 06:09 Dose: 10 mg Pantoprazole Sodium (Protonix Ec Tab) 40 mg PO 0600 [facility] Last Admin: 09/14/18 05:59 Dose: 40 mg Polyethylene Glycol (Miralax) 17 gm PO BID [facility] Pregabalin (Lyrica) 50 mg PO HS [facility] Last Admin: 09/13/18 22:54 Dose: 50 mg Sildenafil Citrate (Revatio) 20 mg PO BID [facility] Last Admin: 09/13/18 20:06 Dose: 20 mg Silver Sulfadiazine (Silvadene 1% 25 Gm) 0 gm TP DAILY [facility] Physical Exam - Constitutional Appears: Non-toxic, No Acute Distress, Chronically Ill - Head Exam Head Exam: NORMAL INSPECTION - ENT Exam ENT Exam: Mucous Membranes Moist - Neck Exam Neck exam: Negative for: Lymphadenopathy, Meningismus - Respiratory Exam Respiratory Exam: Rales (scattered) - Cardiovascular Exam Cardiovascular Exam: +S1, +S2 - GI/Abdominal Exam GI & Abdominal Exam: Soft. absent: Tenderness Results - Vital Signs Recent Vital Signs: Last Vital Signs Temp 98.7 F 09/13/18 22:00 Pulse 89 09/13/18 20:49 Resp 18 09/13/18 20:49 BP 116/66 09/13/18 20:05 Pulse Ox 96 09/13/18 22:00 - Labs Result Diagrams: 09/14/18 08:20 09/14/18 08:20 Labs: Laboratory Results - last 24 hr 09/13/18 09/13/18 15:09 15:09 WBC 8.0 D RBC 2.91 L Hgb 8.7 L Hct 28.0 L MCV 96.2 MCH 29.9 MCHC 31.1 RDW 16.6 H Plt Count 237 MPV 9.5 Neut % (Auto) 84.8 H Lymph % (Auto) 7.0 L Reeves % (Auto) 8.2 H Eos % (Auto) 0.0 L Baso % (Auto) 0.0 Lymph # (Auto) 0.6 L Reeves # (Auto) 0.7 H Eos # (Auto) 0.0 Baso # (Auto) 0.00 Absolute Neuts (auto) 6.74 H Sodium 129 L Potassium 4.0 Chloride 96 L Carbon Dioxide 23 Anion Gap 14 BUN 10 Creatinine 0.6 L Est GFR ( Amer) > 60 Est GFR (Non-Af Amer) > 60 Random Glucose 64 L Calcium 8.5 Magnesium 1.8 Total Bilirubin 0.8 AST 59 H D ALT 37 Alkaline Phosphatase 83 Lactate Dehydrogenase 818 H Total Creatine Kinase 239 H CK-MB (CK-2) 2.2 CK-MB (CK-2) % Cancelled Troponin I < 0.01 NT-Pro-B Natriuret Pep 2050 H Total Protein 5.0 L Albumin 2.6 L Globulin 2.3 Albumin/Globulin Ratio 1.1 Assessment & Plan - Assessment and Plan (Free Text) Plan: Assessment consider right sided healthcare-associated pneumonia S/P UTI with E. coli, uncomplicated. probably cystitis thoracic vertebral compression fractures S/P kyphoplasty COPD chronic renal failure pulmonary HTN PVD GERD Plan started patient on Vancomycin and Cefepime pending blood, sputum cx, PCT, urine Legionella Ag will monitor clinically
[2018-09-14] MEDS: MethylPREDNISolone 40 mg Vial IVP SCH ×2 (15:23→22:00)
[2018-09-14] MEDS: Cefepime 1gm in NS 100ml 1 GM/100 ML BAG IVPB SCH ×2 (15:23→21:24)
[2018-09-14] MEDS: Albuterol-Ipratrop 3 mg / 0.5 (3 ml) UD IH SCH ×2 (15:27→19:33)
--- NOTE | 2018-09-14 16:11 | PN ---
DATE: 09/14/2018 SUBJECTIVE: The patient is 78 years old, seen and examined. She is awake and alert, has some wheezing, seemed to be short of breath, poor oral intake. PHYSICAL EXAMINATION VITAL SIGNS: She is afebrile, pulse 73, respirations 18, and blood pressure 104/57. LUNGS: Bilateral soft crackles at the upper lung region along with wheezing. HEART: S1 and S2, audible. ABDOMEN: Soft and nontender. No rebound. No guarding. NEUROLOGIC: She is awake and alert, unable to communicate. EXTREMITIES: Bilateral legs, +1 edema. She has sacral decubitus, stage III, and she also has stage II right heel ulcer. LABORATORY DATA: WBC is 8.5, hemoglobin 8.6, hematocrit 26.9, and platelets 262. Chemistry; sodium 130, potassium 3.5, chloride 96, CO2 of 27, BUN 11, creatinine 0.7, and blood sugar of 62. She had x-ray chest done that shows disease, right upper lobe representing atelectasis versus developing pneumonia. ASSESSMENT 1. Stage IV metastatic breast cancer. 2. Status post kyphoplasty. 3. Deconditioning and difficulty walking. 4. Right heel ulcer. 5. Sacral decubitus. PLAN: Currently the patient is on nebulizer treatment. She is on Brovana. She is on doxycycline. I will give her nebulizer treatment every 6 hours. Continue her on statins and beta blockers. She has been started on cefepime. She is on GI prophylaxis. She has been started on IV steroids. Request Dr. Denson to evaluate her right heel ulcer and Dr. Peters is following her sacral decubitus. I will follow her hematocrit and electrolytes in a.m. Charla Inman MD
--- NOTE | 2018-09-14 16:48 | RAD ---
Date of service: 09/14/2018 PROCEDURE: Radiographs of the right calcaneus/hindfoot. HISTORY: r/o osteo COMPARISON: None available. Possibly also the midfoot plantar soft tissues. TECHNIQUE: Frontal, lateral and Angulo Beath radiographs of the calcaneus. FINDINGS: No fracture or joint dislocation. No focal lesion. No calcaneal spur. Incidental note is made of a gross hallux valgus deformity and prominent dorsal midfoot and forefoot soft tissue edema. Isolated calcaneus projection is somewhat limited (Angulo Beath projection) with lateral view calcaneus unremarkable appearing. IMPRESSION: No acute fracture of the calcaneus identified grossly. No plantar calcaneal spurring identified. Dorsal greater than plantar mid and forefoot soft tissue edema identified. Incidental gross hallux valgus deformity.
[2018-09-14] MEDS ORDERED: Darbepoetin Alfa 100 mcg/ml Inj SC ONE (17:12)
[2018-09-15] MEDS: Albuterol-Ipratrop 3 mg / 0.5 (3 ml) UD IH SCH ×4 (01:40→19:27)
[2018-09-15] MEDS: Cefepime 1gm in NS 100ml 1 GM/100 ML BAG IVPB SCH ×3 (05:47→22:11)
[2018-09-15] MEDS: Pantoprazole 40 mg EC Tab PO SCH (05:48)
[2018-09-15] MEDS: MethylPREDNISolone 40 mg Vial IVP SCH ×3 (05:50→22:11)
[2018-09-15 06:33] LABS: HEMOGLOBIN 8.2 g/dL (12.0-16.0); MEAN CELL VOLUME 95.6 fl (80.0-105.0); MEAN CORPUSCULAR HEMOGLOBIN 29.8 pg (25.0-35.0); MEAN CORPUSCULAR HGB CONC 31.2 g/dl (31.0-37.0); MEAN PLATELET VOLUME 9.3 fl (7.0-11.0); RBC 2.75 10^6/uL (3.5-6.1); RED CELL DISTRIBUTION WIDTH 16.5 % (11.5-14.5); WHITE BLOOD COUNT 5.6 10^3/uL (4.5-11.0)
[2018-09-15 07:21] LABS: ALBUMIN 2.3 g/dL (3.0-4.8); CALCIUM 8.1 mg/dL (8.4-10.5)
[2018-09-15] MEDS: Vancomycin 1gm in NS 250ml 1 GM/250 ML BAG IVPB SCH (07:30)
[2018-09-15] MEDS: Arformoterol 15 mcg/2 ml Inh Sol IH SCH ×2 (07:46→19:27)
[2018-09-15] MEDS: Budesonide 0.5 mg/2 ml Inhal Susp UD IH SCH ×2 (07:47→19:27)
[2018-09-15] MEDS: Sildenafil 20 MG TAB PO SCH ×2 (09:41→17:54)
[2018-09-15] MEDS: POLYETHYLENE GLYCOL 3350 17 GM/Dose PACKET PO SCH ×2 (09:41→17:23)
[2018-09-15] MEDS: oxyCODONE 10 mg Immediate Release Tab PO PRN ×2 (09:52→17:53)
[2018-09-15] MEDS: Silver Sulfadiazine 1% Cream (25 gm) TP SCH (11:30)
--- NOTE | 2018-09-15 11:30 | CON ---
DATE OF CONSULTATION: 09/15/2018 PULMONARY CONSULTATION REASON FOR PULMONARY CONSULTATION: Chronic obstructive pulmonary disease. REFERRING PHYSICIAN FOR THIS PULMONARY CONSULTATION: Dr. Phillips. HISTORY OF PRESENT ILLNESS: The patient is a chronically ill 78-year-old female, with past medical history significant for advanced chronic obstructive pulmonary disease, pulmonary hypertension, coronary artery disease, status post open heart surgery, metastatic breast cancer, partial colectomy, who presents to [facility] with main complaints of increasing pain in her buttocks area (from sacral decubiti), as well as increasing right foot pain. In the emergency room, the patient was noted to have multiple ulcerations (skin), and was thus admitted for additional evaluation. The patient is mildly short of breath at rest, but in no acute distress. She does not ambulate. She does state to an occasional cough with minimal sputum production. There is no history of chest pain, coughing up of blood, or chest pain - brought on with deep respirations. There is no history of temperatures, chills or infectious exposure. There is no history of night sweats. There is a history of weight loss with decreased appetite over the past few months. No history of calf pains. No history of syncope or diaphoresis. No history of recent travel or trauma. REVIEW OF SYSTEMS: No history of nausea, vomiting or diarrhea. No acute urinary symptoms. Rest of the review of systems is noncontributory. ALLERGIES: NO KNOWN ALLERGIES. SOCIAL HISTORY: Positive for tobacco and negative for alcohol. FAMILY HISTORY: No inheritable diseases. HOME MEDICATIONS: Include prednisone, oxycodone, HydroDIURIL, Incruse Ellipta, Revatio, Lyrica, Zofran, Singulair, Asmanex, Lopressor, Lidoderm, Flovent, Pepcid, Lexapro, Flexeril, Lipitor, Ecotrin, Brovana, and albuterol. PHYSICAL EXAMINATION: GENERAL: The patient appears comfortable this morning. She is mildly short of breath, but in no acute distress. VITAL SIGNS: Temperature is 98.6, pulse is 66, respirations 20/22, blood pressure 99/57. Oxygen saturation on nasal cannula ranges from 94-99%. HEENT: Normocephalic, atraumatic. NECK: No JVD. CARDIOVASCULAR: Systolic ejection murmur at the lower left sternal border. No S3 gallop. LUNGS: Decreased breath sounds at the bases. Minimal bilateral rhonchi. No wheezing. EXTREMITIES: Mild edema. No cyanosis. No clubbing. Calves are nontender to palpation. GASTROINTESTINAL: Abdomen is soft, nontender and nondistended. Bowel sounds are positive. SKIN: Multiple ecchymotic areas on her arms. Multiple decubiti (sacral). The right foot is now wrapped. NEUROLOGIC: Exam is limited at the present time. PERTINENT LABORATORY DATA: Chest x-ray was done and reviewed. There are extensive chronic changes noted. There is also a very small right upper lobe opacity - seen on multiple previous films. CBC: White count 5.6K, hemoglobin 8.2, hematocrit 26.3, platelets of 243,000. Complete metabolic profile: Sodium 130, potassium 3.5, chloride 96, glucose 62. B-type natriuretic peptide 4760. Rest of the metabolic profile is within normal limits. Procalcitonin done - negative - 0.24. IMPRESSION: 1. Failure to thrive. 2. Worsening sacral decubitus. 3. Right foot ulcerations. 4. Advanced chronic obstructive pulmonary disease. 5. Pulmonary hypertension. 6. Metastatic breast cancer. 7. Peripheral vascular disease. PLAN: The patient presents to [facility] with main complaints of worsening buttock pain (due to sacral decubiti), as well as worsening right foot pain (multiple ulcerations). In addition to the above, the patient also presents with mild shortness of breath and occasional cough. There are no other pulmonary symptoms reported. I did review the chest x-ray as above. Findings are noted. I do not appreciate any new or significant changes - compared to the previous films. In addition, the procalcitonin is negative. The patient has been placed on antibiotic therapy. Input by Dr. Leivne is noted. There is no history of temperatures. There is no leukocytosis. On physical exam, there is mild bronchospasm noted. I will continue the current nebulizer treatments and decrease the intravenous steroids this morning. I will also add inhaled Pulmicort. In addition, the patient also will remain on her Revatio - for the pulmonary hypertension. Inputs by Surgery, Oncology, and Podiatry are also noted. Clinical status of the patient is certainly improved - compared to the initial presentation. However, given the above, it does appear that the overall status/prognosis for this patient is quite poor. I will discuss the above with the attending physician. Thank you very much for this pulmonary consultation. Anthony Hameed MD [email or web address]
--- NOTE | 2018-09-15 12:09 | CP.PCM.PN ---
<José Crump - Last Filed: 09/15/18 12:06> Subjective - Date & Time of Evaluation Date of Evaluation: 09/15/18 Time of Evaluation: 12:06 - Subjective Subjective: Podiatry Consult note for Dr. Denson 78 y/o female F seen at bedside with Dr. Denson complaining of painful posterior right heel wound. She is AAO x 3 and NAD at time of visit. Denies any acute overnight events or new pedal complaints at this time. Denies any recent N/V/F/C/CP/SOB/D/posterior calf pain when squeezed. Objective - Vital Signs/Intake and Output Vital Signs (last 24 hours): Temp Pulse Resp BP Pulse Ox 97.9 F 62 20 114/61 98 09/15/18 06:00 09/15/18 09:41 09/15/18 06:00 09/15/18 09:41 09/15/18 06:00 - Medications Medications: Current Medications Albuterol/Ipratropium (Duoneb 3 Mg/0.5 Mg (3 Ml) Ud) 3 ml IH [id number] [facility] Last Admin: 09/15/18 07:47 Dose: 3 ml Arformoterol Tartrate (Brovana) 15 mcg IH [id number] [facility] Last Admin: 09/15/18 07:46 Dose: 15 mcg Aspirin (Ecotrin) 81 mg PO DAILY [facility] Last Admin: 09/15/18 09:41 Dose: 81 mg Atorvastatin Calcium (Lipitor) 20 mg PO DIN [facility] Last Admin: 09/14/18 19:31 Dose: 20 mg Budesonide (Pulmicort Respules) 0.5 mg IH [id number] [facility] Last Admin: 09/15/18 07:47 Dose: 0.5 mg Cyclobenzaprine HCl (Flexeril) 5 mg PO BID [facility] Last Admin: 09/15/18 09:41 Dose: 5 mg Doxycycline Hyclate (Doryx) 100 mg PO Q12 [facility]; Protocol Last Admin: 09/15/18 09:41 Dose: 100 mg Escitalopram Oxalate (Lexapro) 10 mg PO DAILY [facility] Last Admin: 09/15/18 09:41 Dose: 10 mg Famotidine (Pepcid) 20 mg PO 1000,2200 [facility] Last Admin: 09/15/18 09:42 Dose: 20 mg Cefepime HCl (Maxipime 1gm) 1 gm in 100 mls @ 100 mls/hr IVPB Q8 [facility]; Protocol Last Admin: 09/15/18 05:47 Dose: 100 mls/hr Lidocaine HCl (Xylocaine 2% (Uro-Jet)) 1 ea TOP DAILY [facility] Methylprednisolone (Solu-Medrol) 40 mg IVP Q12 [facility] Last Admin: 09/15/18 09:40 Dose: 40 mg Metoprolol Tartrate (Lopressor) 50 mg PO BID [facility] Last Admin: 09/15/18 09:41 Dose: 50 mg Montelukast Sodium (Singulair) 10 mg PO HS [facility] Last Admin: 09/14/18 21:24 Dose: 10 mg Oxycodone HCl (Oxycodone Immediate Release Tab) 10 mg PO Q6H PRN PRN Reason: Pain, moderate (4-7) Last Admin: 09/15/18 09:52 Dose: 10 mg Pantoprazole Sodium (Protonix Ec Tab) 40 mg PO 0600 [facility] Last Admin: 09/15/18 05:48 Dose: 40 mg Polyethylene Glycol (Miralax) 17 gm PO BID [facility] Last Admin: 09/15/18 09:41 Dose: 17 gm Pregabalin (Lyrica) 50 mg PO HS [facility] Last Admin: 09/14/18 21:24 Dose: 50 mg Sildenafil Citrate (Revatio) 20 mg PO BID [facility] Last Admin: 09/15/18 09:41 Dose: 20 mg Silver Sulfadiazine (Silvadene 1% 25 Gm) 0 gm TP DAILY [facility] Last Admin: 09/14/18 11:24 Dose: 25 gm - Labs Labs: 09/15/18 06:10 09/15/18 06:10 - Constitutional Appears: Well, Non-toxic, No Acute Distress - Head Exam Head Exam: ATRAUMATIC, NORMOCEPHALIC - Extremities Exam Additional comments: RLE focused exam: Vasc: DP/PT pulses fully palpable 2/4 b/l. Skin temperature warm to warm from proximal to distal. CFT < 3 seconds to all digits b/l. No edema noted b/l Neuro: Epicritic and protective sensation grossly intact b/l Derm: Posterior right heel wound measuring 3 cm X 3 cm with 50% fibrotic and 50% granular base, superficial, negative probe to bone, positive isabel-wound erythema, positive sero-sanguinous drainage, No other open lesions, wounds, maceration, xerosis, abnormal pigmentation or abnormal growths noted b/l MSK: Pain with palpation of blister site. B/l HAV deformities noted. No other gross deformities noted. ROM WNL to all major joints b/l. MMT 5/5 in all major muscle groups b/l - Neurological Exam Neurological Exam: Alert, Awake, Oriented x3 - Psychiatric Exam Psychiatric exam: Normal Affect, Normal Mood Assessment and Plan - Assessment and Plan (Free Text) Assessment: 77 y/o female seen for posterior right heel wound Plan: Patient seen and evaluated with attending Dr. Denson Chart, labs and vitals reviewed- Afebrile, absent leukocytosis Wound Culture: Pending Right Heel X-ray: no signs of osteo Ordered MRI Right heel Right heel wound cleaned with saline, and dressed with adaptic, maxorb, DSD Patient to wear BilateralMultipodus boots at all times while in bed Infectious disease on board, continue IV Abx Podiatry will continue to follow patient while in house <Angel Denson - Last Filed: 09/15/18 17:46> Objective - Vital Signs/Intake and Output Vital Signs (last 24 hours): Temp Pulse Resp BP Pulse Ox 97.9 F 68 14 106/64 96 09/15/18 14:00 09/15/18 14:00 09/15/18 14:00 09/15/18 15:50 09/15/18 14:00 - Medications Medications: Current Medications Albuterol/Ipratropium (Duoneb 3 Mg/0.5 Mg (3 Ml) Ud) 3 ml IH [id number] [facility] Last Admin: 09/15/18 13:13 Dose: 3 ml Arformoterol Tartrate (Brovana) 15 mcg IH [id number] [facility] Last Admin: 09/15/18 07:46 Dose: 15 mcg Aspirin (Ecotrin) 81 mg PO DAILY [facility] Last Admin: 09/15/18 09:41 Dose: 81 mg Atorvastatin Calcium (Lipitor) 20 mg PO DIN [facility] Last Admin: 09/14/18 19:31 Dose: 20 mg Budesonide (Pulmicort Respules) 0.5 mg IH [id number] [facility] Last Admin: 09/15/18 07:47 Dose: 0.5 mg Cyclobenzaprine HCl (Flexeril) 5 mg PO BID [facility] Last Admin: 09/15/18 09:41 Dose: 5 mg Doxycycline Hyclate (Doryx) 100 mg PO Q12 [facility]; Protocol Last Admin: 09/15/18 09:41 Dose: 100 mg Escitalopram Oxalate (Lexapro) 10 mg PO DAILY [facility] Last Admin: 09/15/18 09:41 Dose: 10 mg Famotidine (Pepcid) 20 mg PO 1000,2200 [facility] Last Admin: 09/15/18 09:42 Dose: 20 mg Cefepime HCl (Maxipime 1gm) 1 gm in 100 mls @ 100 mls/hr IVPB Q8 [facility]; Protocol Last Admin: 09/15/18 14:40 Dose: 100 mls/hr Lidocaine HCl (Xylocaine 2% (Uro-Jet)) 1 ea TOP DAILY [facility] Last Admin: 09/15/18 14:27 Dose: 1 ea Methylprednisolone (Solu-Medrol) 40 mg IVP Q12 [facility] Last Admin: 09/15/18 09:40 Dose: 40 mg Metoprolol Tartrate (Lopressor) 50 mg PO BID [facility] Last Admin: 09/15/18 09:41 Dose: 50 mg Montelukast Sodium (Singulair) 10 mg PO HS [facility] Last Admin: 09/14/18 21:24 Dose: 10 mg Oxycodone HCl (Oxycodone Immediate Release Tab) 10 mg PO Q6H PRN PRN Reason: Pain, moderate (4-7) Last Admin: 09/15/18 09:52 Dose: 10 mg Pantoprazole Sodium (Protonix Ec Tab) 40 mg PO 0600 [facility] Last Admin: 09/15/18 05:48 Dose: 40 mg Polyethylene Glycol (Miralax) 17 gm PO BID [facility] Last Admin: 09/15/18 17:23 Dose: Not Given Pregabalin (Lyrica) 50 mg PO HS [facility] Last Admin: 09/14/18 21:24 Dose: 50 mg Sildenafil Citrate (Revatio) 20 mg PO BID [facility] Last Admin: 09/15/18 09:41 Dose: 20 mg Silver Sulfadiazine (Silvadene 1% 25 Gm) 0 gm TP DAILY [facility] Last Admin: 09/15/18 11:30 Dose: 1 gm - Labs Labs: 09/15/18 06:10 09/15/18 06:10 Attending/Attestation - Attestation I have personally seen and examined this patient.: Yes I have fully participated in the care of the patient.: Yes I have reviewed all pertinent clinical information, including history, physical exam and plan: Yes
--- NOTE | 2018-09-15 12:12 | CP.PCM.PCO ---
Physician Communication Note - Physician Communication Note Physician Communication Note: no plan for radiation now per ,pt. will f/u with Jacqueline in 2-3 weeks
[2018-09-15] MEDS: Lidocaine 2% Jelly (Uro-Jet) TOP SCH (14:27)
--- NOTE | 2018-09-15 14:37 | CP.PCM.PN ---
Subjective - Date & Time of Evaluation Date of Evaluation: 09/15/18 Time of Evaluation: 11:50 - Subjective Subjective: Still with some cough but a little better, no fevers. Objective - Vital Signs/Intake and Output Vital Signs (last 24 hours): Temp Pulse Resp BP Pulse Ox 98.6 F 73 18 104/57 L 94 L 09/14/18 10:07 09/14/18 12:02 09/14/18 10:07 09/14/18 12:02 09/14/18 10:07 - Medications Medications: Current Medications Albuterol/Ipratropium (Duoneb 3 Mg/0.5 Mg (3 Ml) Ud) 3 ml IH [id number] [facility] Arformoterol Tartrate (Brovana) 15 mcg IH [id number] [facility] Last Admin: 09/14/18 07:28 Dose: 15 mcg Aspirin (Ecotrin) 81 mg PO DAILY [facility] Last Admin: 09/14/18 11:52 Dose: 81 mg Atorvastatin Calcium (Lipitor) 20 mg PO DIN [facility] Cyclobenzaprine HCl (Flexeril) 5 mg PO BID [facility] Last Admin: 09/14/18 11:53 Dose: 5 mg Doxycycline Hyclate (Doryx) 100 mg PO Q12 [facility]; Protocol Last Admin: 09/14/18 11:52 Dose: 100 mg Escitalopram Oxalate (Lexapro) 10 mg PO DAILY [facility] Last Admin: 09/14/18 11:52 Dose: 10 mg Famotidine (Pepcid) 20 mg PO 1000,2200 [facility] Last Admin: 09/14/18 11:52 Dose: 20 mg Vancomycin HCl (Vancomycin 1gm) 1 gm in 250 mls @ 167 mls/hr IVPB Q12H [facility]; Protocol Last Admin: 09/14/18 07:41 Dose: 167 mls/hr Cefepime HCl (Maxipime 1gm) 1 gm in 100 mls @ 100 mls/hr IVPB Q8 [facility]; Protocol Lidocaine HCl (Xylocaine 2% (Uro-Jet)) 1 ea TOP DAILY [facility] Methylprednisolone (Solu-Medrol) 40 mg IVP Q8 [facility] Metoprolol Tartrate (Lopressor) 50 mg PO BID [facility] Last Admin: 09/14/18 12:02 Dose: Not Given Montelukast Sodium (Singulair) 10 mg PO HS [facility] Last Admin: 09/13/18 22:54 Dose: 10 mg Oxycodone HCl (Oxycodone Immediate Release Tab) 10 mg PO Q6H PRN PRN Reason: Pain, moderate (4-7) Last Admin: 09/14/18 06:09 Dose: 10 mg Pantoprazole Sodium (Protonix Ec Tab) 40 mg PO 0600 [facility] Last Admin: 09/14/18 05:59 Dose: 40 mg Polyethylene Glycol (Miralax) 17 gm PO BID [facility] Last Admin: 09/14/18 11:52 Dose: 17 gm Pregabalin (Lyrica) 50 mg PO HS [facility] Last Admin: 09/13/18 22:54 Dose: 50 mg Sildenafil Citrate (Revatio) 20 mg PO BID [facility] Last Admin: 09/14/18 11:53 Dose: 20 mg Silver Sulfadiazine (Silvadene 1% 25 Gm) 0 gm TP DAILY [facility] - Labs Labs: 09/14/18 08:20 09/14/18 08:20 - Constitutional Appears: Chronically Ill - Head Exam Head Exam: NORMAL INSPECTION - Respiratory Exam Respiratory Exam: Decreased Breath Sounds - Cardiovascular Exam Cardiovascular Exam: +S1, +S2 - GI/Abdominal Exam GI & Abdominal Exam: Soft. absent: Tenderness Assessment and Plan - Assessment and Plan (Free Text) Plan: Assessment consider right sided healthcare-associated pneumonia S/P UTI with E. coli, uncomplicated. probably cystitis thoracic vertebral compression fractures S/P kyphoplasty COPD chronic renal failure pulmonary HTN PVD GERD Plan continue Vancomycin and Cefepime and Doxycycline day 2 pending final blood, sputum cx; PCT is only 0.24, urine Legionella Ag is negative will continue to monitor clinically
--- NOTE | 2018-09-15 15:47 | CP.PCM.APN ---
Subjective - Date & Time of Evaluation Date of Evaluation: 09/15/18 Time of Evaluation: 12:35 - Subjective Subjective: Pt. seen and examined. Appears to have congestion, with audible wheezes, and excessive upper airway secretions. In no acute distress. Denied chest pain. Objective - Vital Signs/Intake and Output Vital Signs (last 24 hours): Temp Pulse Resp BP Pulse Ox 97.9 F 62 20 114/61 98 09/15/18 06:00 09/15/18 09:41 09/15/18 06:00 09/15/18 09:41 09/15/18 06:00 - Medications Medications: Current Medications Albuterol/Ipratropium (Duoneb 3 Mg/0.5 Mg (3 Ml) Ud) 3 ml IH [id number] [facility] Last Admin: 09/15/18 13:13 Dose: 3 ml Arformoterol Tartrate (Brovana) 15 mcg IH [id number] [facility] Last Admin: 09/15/18 07:46 Dose: 15 mcg Aspirin (Ecotrin) 81 mg PO DAILY [facility] Last Admin: 09/15/18 09:41 Dose: 81 mg Atorvastatin Calcium (Lipitor) 20 mg PO DIN [facility] Last Admin: 09/14/18 19:31 Dose: 20 mg Budesonide (Pulmicort Respules) 0.5 mg IH [id number] [facility] Last Admin: 09/15/18 07:47 Dose: 0.5 mg Cyclobenzaprine HCl (Flexeril) 5 mg PO BID [facility] Last Admin: 09/15/18 09:41 Dose: 5 mg Doxycycline Hyclate (Doryx) 100 mg PO Q12 [facility]; Protocol Last Admin: 09/15/18 09:41 Dose: 100 mg Escitalopram Oxalate (Lexapro) 10 mg PO DAILY [facility] Last Admin: 09/15/18 09:41 Dose: 10 mg Famotidine (Pepcid) 20 mg PO 1000,2200 [facility] Last Admin: 09/15/18 09:42 Dose: 20 mg Cefepime HCl (Maxipime 1gm) 1 gm in 100 mls @ 100 mls/hr IVPB Q8 [facility]; Protocol Last Admin: 09/15/18 14:40 Dose: 100 mls/hr Lidocaine HCl (Xylocaine 2% (Uro-Jet)) 1 ea TOP DAILY [facility] Last Admin: 09/15/18 14:27 Dose: 1 ea Methylprednisolone (Solu-Medrol) 40 mg IVP Q12 [facility] Last Admin: 09/15/18 09:40 Dose: 40 mg Metoprolol Tartrate (Lopressor) 50 mg PO BID [facility] Last Admin: 09/15/18 09:41 Dose: 50 mg Montelukast Sodium (Singulair) 10 mg PO HS [facility] Last Admin: 09/14/18 21:24 Dose: 10 mg Oxycodone HCl (Oxycodone Immediate Release Tab) 10 mg PO Q6H PRN PRN Reason: Pain, moderate (4-7) Last Admin: 09/15/18 09:52 Dose: 10 mg Pantoprazole Sodium (Protonix Ec Tab) 40 mg PO 0600 [facility] Last Admin: 09/15/18 05:48 Dose: 40 mg Polyethylene Glycol (Miralax) 17 gm PO BID [facility] Last Admin: 09/15/18 09:41 Dose: 17 gm Pregabalin (Lyrica) 50 mg PO [facility] Last Admin: 09/14/18 21:24 Dose: 50 mg Sildenafil Citrate (Revatio) 20 mg PO BID [facility] Last Admin: 09/15/18 09:41 Dose: 20 mg Silver Sulfadiazine (Silvadene 1% 25 Gm) 0 gm TP DAILY [facility] Last Admin: 09/15/18 11:30 Dose: 1 gm - Labs Labs: 09/15/18 06:10 09/15/18 06:10 - Constitutional Appears: No Acute Distress - Head Exam Head Exam: NORMOCEPHALIC - Eye Exam Eye Exam: Normal appearance - Neck Exam Neck Exam: Full ROM - Respiratory Exam Respiratory Exam: Wheezes - Cardiovascular Exam Cardiovascular Exam: REGULAR RHYTHM, +S1, +S2 - GI/Abdominal Exam GI & Abdominal Exam: Soft - Rectal Exam Rectal Exam: Deferred - Exam Exam: absent: Circumcision, NORMAL INSPECTION, Scrotal Swelling, Testicular Tenderness, Uretheral Discharge, Testicular Vertical Lie, Bladder Distension External exam: absent: Ecchymosis, Erythema, Lacerations, Lesions, NORMAL EXTERNAL EXAM, Swelling Speculum exam: absent: Cervical Discharge, Erythema, Foreign Body, Laceration, NORMAL SPECULUM EXAM, Tissue, Vaginal Bleeding, Vaginal Discharge Bimanual exam: absent: Adenexal Mass, Adnexal, Cervical Motion Tendernes, NORMAL BIMANUAL EXAM, Uterine Enlargement, Uterine Tenderness - Neurological Exam Neurological Exam: Awake - Skin Skin Exam: Dry, Normal Color Assessment and Plan - Assessment and Plan (Free Text) Assessment: ITS Impressions Head CT 09/13/18 13:54 IMPRESSION: No acute intracranial findings. There opacification of the right mastoid air cells and right middle ear cavity consistent with otomastoiditis Heel X-Ray 09/14/18 15:37 IMPRESSION: No acute fracture of the calcaneus identified grossly. No plantar calcaneal spurring identified. Dorsal greater than plantar mid and forefoot soft tissue edema identified. Incidental gross hallux valgus deformity. Impressions Head CT 09/13/18 13:54 IMPRESSION: No acute intracranial findings. There opacification of the right mastoid air cells and right middle ear cavity consistent with otomastoiditis Heel X-Ray 09/14/18 15:37 IMPRESSION: No acute fracture of the calcaneus identified grossly. No plantar calcaneal spurring identified. Dorsal greater than plantar mid and forefoot soft tissue edema identified. Incidental gross hallux valgus deformity. Laboratory Results WBC 5.6 10^3/uL (4.5-11.0) D 09/15/18 06:10 RBC 2.75 10^6/uL (3.5-6.1) L 09/15/18 06:10 Hgb 8.2 g/dL (12.0-16.0) L 09/15/18 06:10 Hct 26.3 % (36.0-48.0) L 09/15/18 06:10 MCV 95.6 fl (80.0-105.0) 09/15/18 06:10 MCH 29.8 pg (25.0-35.0) 09/15/18 06:10 MCHC 31.2 g/dl (31.0-37.0) 09/15/18 06:10 RDW 16.5 % (11.5-14.5) H 09/15/18 06:10 Plt Count 243 10^3/uL (120.0-450.0) 09/15/18 06:10 MPV 9.3 fl (7.0-11.0) 09/15/18 06:10 Neut % (Auto) 84.8 % (50.0-68.0) H 09/13/18 15:09 Lymph % (Auto) 7.0 % (22.0-35.0) L 09/13/18 15:09 Crawford % (Auto) 8.2 % (1.0-6.0) H 09/13/18 15:09 Eos % (Auto) 0.0 % (1.5-5.0) L 09/13/18 15:09 Baso % (Auto) 0.0 % (0.0-3.0) 09/13/18 15:09 Lymph # (Auto) 0.6 (1.2-3.4) L 09/13/18 15:09 Crawford # (Auto) 0.7 (0.1-0.6) H 09/13/18 15:09 Eos # (Auto) 0.0 (0.0-0.7) 09/13/18 15:09 Baso # (Auto) 0.00 K/mm3 (0.0-2.0) 09/13/18 15:09 Absolute Neuts (auto) 6.74 (1.4-6.5) H 09/13/18 15:09 Sodium 130 mmol/L (132-148) L 09/15/18 06:10 Potassium 3.8 mmol/L (3.6-5.0) 09/15/18 06:10 Chloride 98 mmol/L (98-107) 09/15/18 06:10 Carbon Dioxide 23 mmol/L (21-33) 09/15/18 06:10 Anion Gap 13 (10-20) 09/15/18 06:10 BUN 21 mg/dL (7-21) 09/15/18 06:10 Creatinine 1.5 mg/dl (0.7-1.2) H 09/15/18 06:10 Est GFR ( Amer) 41 09/15/18 06:10 Est GFR (Non-Af Amer) 34 09/15/18 06:10 Random Glucose 98 mg/dL (70-110) 09/15/18 06:10 Calcium 8.1 mg/dL (8.4-10.5) L 09/15/18 06:10 Magnesium 1.8 mg/dL (1.7-2.2) 09/13/18 15:09 Total Bilirubin 0.5 mg/dL (0.2-1.3) 09/15/18 06:10 AST 76 U/L (14-36) H D 09/15/18 06:10 ALT 37 U/L (7-56) 09/15/18 06:10 Alkaline Phosphatase 67 U/L (38-126) 09/15/18 06:10 Lactate Dehydrogenase 818 U/L (333-699) H 09/13/18 15:09 Total Creatine Kinase 239 U/L (35-230) H 09/13/18 15:09 CK-MB (CK-2) 2.2 ng/mL (0.0-3.6) 09/13/18 15:09 CK-MB (CK-2) % Cancelled 09/13/18 15:09 Troponin I < 0.01 ng/mL 09/13/18 15:09 NT-Pro-B Natriuret Pep 4760 pg/mL (0-450) H 09/15/18 06:10 Total Protein 4.5 g/dL (5.8-8.3) L 09/15/18 06:10 Albumin 2.3 g/dL (3.0-4.8) L 09/15/18 06:10 Globulin 2.3 gm/dL 09/15/18 06:10 Albumin/Globulin Ratio 1.0 (1.1-1.8) L 09/15/18 06:10 Procalcitonin 0.24 NG/ML (0.19-0.49) 09/14/18 08:20 Urine Color Yellow (YELLOW) 09/14/18 12:30 Urine Appearance Slight-cloudy (CLEAR) 09/14/18 12:30 Urine pH 5.0 (4.7-8.0) 09/14/18 12:30 Ur Specific Surveyor >= 1.030 (1.005-1.035) 09/14/18 12:30 Urine Protein Negative mg/dL (<30 mg/dL) 09/14/18 12:30 Urine Glucose (UA) Negative mg/dL (NEGATIVE) 09/14/18 12:30 Urine Ketones Negative mg/dL (NEGATIVE) 09/14/18 12:30 Urine Blood Negative (NEGATIVE) 09/14/18 12:30 Urine Nitrate Positive (NEGATIVE) H 09/14/18 12:30 Urine Bilirubin Negative (NEGATIVE) 09/14/18 12:30 Urine Urobilinogen 0.2 E.U./dL (<1 E.U./dL) 09/14/18 12:30 Ur Leukocyte Esterase Trace Melania/uL (NEGATIVE) H 09/14/18 12:30 Urine RBC 1 - 3 /hpf (0-2) H 09/14/18 12:30 Urine WBC 5 - 10 /hpf (0-6) H 09/14/18 12:30 Ur Epithelial Cells 6 - 8 /hpf (0-5) H 09/14/18 12:30 Amorphous Sediment Moderate /hpf (NONE) 09/14/18 12:30 Urine Bacteria Large /hpf (NONE) 09/14/18 12:30 Urine Other Uyeast /hpf 09/14/18 12:30 Ur L.pneumophila Ag Negative (NEGATIVE) 09/14/18 12:30 ITS Impressions Chest X-Ray 09/13/18 13:49 IMPRESSION: Patchy airspace disease in the right upper lobe may represent subsegmental atelectasis however developing pneumonia cannot be excluded. Follow-up after medical management is recommended to ensure complete resolution. Background of COPD. Cardiomegaly and prominent central vasculature with moderate pulmonary venous congestion. Head CT 09/13/18 13:54 IMPRESSION: No acute intracranial findings. There opacification of the right mastoid air cells and right middle ear cavity consistent with otomastoiditis Heel X-Ray 09/14/18 15:37 IMPRESSION: No acute fracture of the calcaneus identified grossly. No plantar calcaneal spurring identified. Dorsal greater than plantar mid and forefoot soft tissue edema identified. Incidental gross hallux valgus deformity. Assessment: 78 year old female with PMH of COPD, chronic renal failure, COPD, pulmonary HTN, PVD, GERD was recently admitted in [facility] for thoracic vertebral compression fractures S/P kyphoplasty. She was doing well in [facility] and was also treated for UTI with E. coli. A day after discharge, she was feeling weak and tired and was having some shortness of breath and cough as well as poor appetite,found to have pneumonia, and congestion on cxr in ED, admitted for further eval, and treatment, with I.D consulted. PlaN: 1. Pneumonia, patchy airspace in right upper lobe. -Antibiotics, blood cultures, sputum cultures pending. 2. Mod vasc congestion, BNP 4760 maybe r/t right side chf, with pulm htn, LASIX 1 X ordered, REvatio, bronchodilators per pulm. IV steroids, monitor resp. status, recs per customer solutions supervisor 3. Sacral Ulcer local treatment as per surgery, poss bedside debridement. 4. Right heel ulcer wound cx pending, MRI result pending. 5. Stage 4 Breast CA with mets recs as per oncology, no plan for radiation at present, 6. physical Deconditioning. -[facility], pending PT eval, and improved respiratory status 7. Anemia, -maybe of chronic disease, monitor, trend h/h stool occult blood pending. SW/Cm for Dc planning to [facility] will continue to monitor clinical status and follow closely.
--- NOTE | 2018-09-15 16:29 | MRI ---
Date of service: 09/15/2018 PROCEDURE: MRI of the right ankle without contrast HISTORY: r/o osteo right heel COMPARISON: No prior similar study available for comparison. TECHNIQUE: Axial coronal and sagittal MRI images of the right ankle were obtained without contrast administration FINDINGS: There is a heterogeneous mild bone marrow edema noted at the mid and distal aspect of the right calcaneus bone. There is no evidence of cortical erosion or destruction of the right calcaneus bone. Findings likely represent bone marrow reaction. The possibility of acute osteomyelitis is less likely. There is heterogeneous soft tissue edema noted at the posterior and lateral aspect of the heel without evidence of discrete fluid collection. Small amount of fluid noted around posterior tibialis tendon suggestive of tendinopathy. There is a trace amount of fluid also noted adjacent to the Achillis tendon suggestive of mild tendinopathy. Trace right ankle joint effusion is also noted. No evidence of tendon rupture. No evidence of acute ligament injury. IMPRESSION: Mild heterogeneous bone marrow edema noted in the calcaneus bone without evidence of cortical destruction or erosion likely represent bone marrow reaction. The possibility of osteomyelitis is less likely. Soft tissue inflammatory changes and edema noted at the posterior aspect of the right foot more prominent laterally. No evidence of discrete fluid collection.
--- NOTE | 2018-09-15 16:57 | RAD ---
Date of service: 09/15/2018 PROCEDURE: CHEST RADIOGRAPH, 1 VIEW HISTORY: congestion COMPARISON: None available. FINDINGS: LUNGS: Interval worsening of heterogeneous opacity at the left lower lung since the previous study. The possibility of left lower lobe infiltrate cannot be excluded PLEURA: Suspicious for left pleural effusion CARDIOVASCULAR: Atherosclerotic calcification noted at the aortic arch normal. OSSEOUS STRUCTURES: No significant abnormalities. VISUALIZED UPPER ABDOMEN: Normal. OTHER FINDINGS: Again noted is right-sided in [id number] in place. IMPRESSION: Worsening heterogeneous opacity at the left lower lung may associated with pleural effusion.
--- NOTE | 2018-09-16 00:50 | PN ---
DATE: 09/15/2018 SUBJECTIVE: The patient is a 78-year-old, seen and examined, lying in bed, seems to be better than yesterday and less shortness of breath. PHYSICAL EXAMINATION: VITAL SIGNS: She is afebrile, pulse 66, respirations 20, and blood pressure 103/58. LUNGS: Bilateral fair airflow better than yesterday. Still has soft crackle in upper lung region. HEART: S1 and S2 audible. ABDOMEN: Soft and nontender. No rebound. No guarding. NEUROLOGIC: The patient is awake, alert, oriented, and able to communicate. EXTREMITIES: Bilateral legs, no edema. She has sacral decubiti. She has right heel decubitus ulcer. LABORATORY DATA: WBC 5.6, hemoglobin 8.2, hematocrit 26.3, and platelets 243. Chemistry; sodium 130, potassium 3.8, chloride 98, CO2 of 23, BUN 21, creatinine 1.5, and blood sugar of 98. Leg wound culture, coag-negative Staph. Blood cultures are negative. Her MRI of the right foot done that shows calcaneal edema without evidence of cortical destruction or erosion representing bone marrow edema, possibility of osteomyelitis is less likely; however, she has soft tissue inflammatory changes and inflammatory edema noted. ASSESSMENT: 1. Right upper lung infiltrate. 2. Right heel ulcer. 3. Sacral decubitus. 4. Metastatic breast carcinoma. 5. Status post kyphoplasty. 6. Deconditioning and difficulty walking. PLAN: The patient is currently on Brovana, doxycycline, and nebulizer treatment. She is on aspirin. She is on cefepime. She is on IV steroids. Continue antibiotics. Out of bed to chair. We will give her wedge to take pressure off of her sacral area. We will continue to monitor once her respiratory status improved, make disposition plan and discharge to [facility]. Charla Inman MD
[2018-09-16] MEDS: Albuterol-Ipratrop 3 mg / 0.5 (3 ml) UD IH SCH ×5 (01:09→20:09)
[2018-09-16] MEDS: Cefepime 1gm in NS 100ml 1 GM/100 ML BAG IVPB SCH ×3 (05:11→22:10)
[2018-09-16] MEDS: Pantoprazole 40 mg EC Tab PO SCH (05:11)
[2018-09-16] MEDS: Arformoterol 15 mcg/2 ml Inh Sol IH SCH ×3 (06:42→20:09)
[2018-09-16] MEDS: Budesonide 0.5 mg/2 ml Inhal Susp UD IH SCH ×3 (06:42→20:10)
[2018-09-16 08:04] LABS: HEMOGLOBIN 8.5 g/dL (12.0-16.0); MEAN CELL VOLUME 95.1 fl (80.0-105.0); MEAN CORPUSCULAR HGB CONC 31.6 g/dl (31.0-37.0); MEAN PLATELET VOLUME 9.3 fl (7.0-11.0); RBC 2.83 10^6/uL (3.5-6.1); RED CELL DISTRIBUTION WIDTH 16.7 % (11.5-14.5); WHITE BLOOD COUNT 7.4 10^3/uL (4.5-11.0)
[2018-09-16 08:21] LABS: ALBUMIN 2.4 g/dL (3.0-4.8); CALCIUM 8.4 mg/dL (8.4-10.5)
--- NOTE | 2018-09-16 09:51 | CP.PCM.PN ---
<Claudette Cai - Last Filed: 09/16/18 09:51> Subjective - Date & Time of Evaluation Date of Evaluation: 09/16/18 Time of Evaluation: 09:50 - Subjective Subjective: Podiatry Progress Note: Dr. Denson 78 F seen at bedside with posterior right heel wound. Patient resting comfortably, denies any acute events overnight. Denies na usea/vomitting/fever/chest pain, admits to shortness of breath secondary to congestion. Objective - Vital Signs/Intake and Output Vital Signs (last 24 hours): Temp Pulse Resp BP Pulse Ox 97.4 F L 62 18 115/61 96 09/16/18 06:00 09/16/18 06:00 09/16/18 06:00 09/16/18 06:00 09/16/18 06:00 Intake and Output: 09/16/18 09/16/18 06:59 18:59 Intake Total 1440 Balance 1440 - Medications Medications: Current Medications Albuterol/Ipratropium (Duoneb 3 Mg/0.5 Mg (3 Ml) Ud) 3 ml IH [id number] [facility] Last Admin: 09/16/18 07:05 Dose: Not Given Arformoterol Tartrate (Brovana) 15 mcg IH [id number] [facility] Last Admin: 09/16/18 07:05 Dose: Not Given Aspirin (Ecotrin) 81 mg PO DAILY [facility] Last Admin: 09/15/18 09:41 Dose: 81 mg Atorvastatin Calcium (Lipitor) 20 mg PO DIN [facility] Last Admin: 09/15/18 17:55 Dose: 20 mg Budesonide (Pulmicort Respules) 0.5 mg IH [id number] [facility] Last Admin: 09/16/18 07:05 Dose: Not Given Cyclobenzaprine HCl (Flexeril) 5 mg PO BID [facility] Last Admin: 09/15/18 17:53 Dose: 5 mg Doxycycline Hyclate (Doryx) 100 mg PO Q12 [facility]; Protocol Last Admin: 09/15/18 22:09 Dose: 100 mg Escitalopram Oxalate (Lexapro) 10 mg PO DAILY [facility] Last Admin: 09/15/18 09:41 Dose: 10 mg Famotidine (Pepcid) 20 mg PO 1000,2200 [facility] Last Admin: 09/15/18 22:10 Dose: 20 mg Cefepime HCl (Maxipime 1gm) 1 gm in 100 mls @ 100 mls/hr IVPB Q8 [facility]; Protocol Last Admin: 09/16/18 05:11 Dose: 100 mls/hr Lidocaine HCl (Xylocaine 2% (Uro-Jet)) 1 ea TOP DAILY [facility] Last Admin: 09/15/18 14:27 Dose: 1 ea Methylprednisolone (Solu-Medrol) 40 mg IVP Q12 [facility] Last Admin: 09/15/18 22:11 Dose: 40 mg Metoprolol Tartrate (Lopressor) 50 mg PO BID [facility] Last Admin: 09/15/18 17:53 Dose: 50 mg Montelukast Sodium (Singulair) 10 mg PO HS [facility] Last Admin: 09/15/18 22:10 Dose: 10 mg Oxycodone HCl (Oxycodone Immediate Release Tab) 10 mg PO Q6H PRN PRN Reason: Pain, moderate (4-7) Last Admin: 09/15/18 17:53 Dose: 10 mg Pantoprazole Sodium (Protonix Ec Tab) 40 mg PO 0600 [facility] Last Admin: 09/16/18 05:11 Dose: 40 mg Polyethylene Glycol (Miralax) 17 gm PO BID [facility] Last Admin: 09/15/18 17:23 Dose: Not Given Pregabalin (Lyrica) 50 mg PO HS [facility] Last Admin: 09/15/18 22:10 Dose: 50 mg Sildenafil Citrate (Revatio) 20 mg PO BID [facility] Last Admin: 09/15/18 17:54 Dose: 20 mg Silver Sulfadiazine (Silvadene 1% 25 Gm) 0 gm TP DAILY [facility] Last Admin: 09/15/18 11:30 Dose: 1 gm - Labs Labs: 09/16/18 07:45 09/16/18 07:45 - Constitutional Appears: Non-toxic, No Acute Distress - Extremities Exam Additional comments: RLE focused exam: Vasc: DP/PT pulses fully palpable 2/4 b/l. Skin temperature warm to warm from proximal to distal. CFT < 3 seconds to all digits b/l. No edema noted b/l Neuro: Gross and protective sensation grossly intact b/l Derm: Posterior right heel wound measuring 3 cm X 3 cm with 50% fibrotic and 50% granular base, superficial, negative probe to bone, positive isabel-wound erythema, positive sero-sanguinous drainage, No other open lesions, wounds, maceration, xerosis, abnormal pigmentation or abnormal growths noted b/l MSK: Pain with palpation of blister site. B/l HAV deformities noted. No other gross deformities noted. ROM WNL to all major joints b/l. MMT 5/5 in all major muscle groups b/l Assessment and Plan - Assessment and Plan (Free Text) Assessment: 77F with posterior right heel wound Plan: Patient seen and evaluated with attending Dr. Denson Afebrile, WBC 7.4 Wound Culture: Coag neg staph Right Heel X-ray: no signs of osteo R MRI; bone marrow edema in calcaneus without evidence of cortical destruction or erosion likely represent bone marrow reaction, possibility of OM less likely Right heel wound cleaned with saline, and dressed with adaptic, maxorb, DSD Patient to wear Multipodus boots at all times while in bed ID on board, reccs appreciated Will continue to follow patient while in house <Angel Denson - Last Filed: 09/18/18 09:04> Objective - Vital Signs/Intake and Output Vital Signs (last 24 hours): Temp Pulse Resp BP Pulse Ox 97.7 F 63 16 103/54 L 94 L 09/17/18 22:00 09/17/18 22:00 09/17/18 22:00 09/17/18 22:00 09/17/18 22:00 Intake and Output: 09/18/18 09/18/18 06:59 18:59 Output Total 200 Balance -200 - Medications Medications: Current Medications Albuterol/Ipratropium (Duoneb 3 Mg/0.5 Mg (3 Ml) Ud) 3 ml IH Q1H PRN PRN Reason: Shortness of Breath Last Admin: 09/18/18 08:32 Dose: 3 ml Albuterol/Ipratropium (Duoneb 3 Mg/0.5 Mg (3 Ml) Ud) 3 ml IH [id number] [facility] Arformoterol Tartrate (Brovana) 15 mcg IH [id number] [facility] Last Admin: 09/18/18 07:34 Dose: 15 mcg Aspirin (Ecotrin) 81 mg PO DAILY [facility] Last Admin: 09/17/18 11:00 Dose: 81 mg Atorvastatin Calcium (Lipitor) 20 mg PO DIN [facility] Last Admin: 09/17/18 17:05 Dose: 20 mg Budesonide (Pulmicort Respules) 0.5 mg IH [id number] [facility] Last Admin: 09/18/18 07:35 Dose: 0.5 mg Cyclobenzaprine HCl (Flexeril) 5 mg PO BID [facility] Last Admin: 09/17/18 17:04 Dose: 5 mg Doxycycline Hyclate (Doryx) 100 mg PO Q12 [facility]; Protocol Last Admin: 09/17/18 22:48 Dose: 100 mg Enoxaparin Sodium (Lovenox) 30 mg SC DAILY [facility]; Protocol Last Admin: 09/17/18 17:05 Dose: 30 mg Escitalopram Oxalate (Lexapro) 10 mg PO DAILY [facility] Last Admin: 09/17/18 11:00 Dose: 10 mg Famotidine (Pepcid) 20 mg PO 1000,2200 [facility] Last Admin: 09/17/18 22:49 Dose: 20 mg Cefepime HCl (Maxipime 1gm) 1 gm in 100 mls @ 100 mls/hr IVPB Q8 [facility]; Protocol Last Admin: 09/18/18 05:57 Dose: 100 mls/hr Lidocaine HCl (Xylocaine 2% (Uro-Jet)) 1 ea TOP DAILY [facility] Last Admin: 09/17/18 11:01 Dose: 1 ea Methylprednisolone (Solu-Medrol) 40 mg IVP Q8H [facility] Metoprolol Tartrate (Lopressor) 50 mg PO BID [facility] Last Admin: 09/17/18 17:05 Dose: 50 mg Montelukast Sodium (Singulair) 10 mg PO HS [facility] Last Admin: 09/17/18 22:48 Dose: 10 mg Oxycodone HCl (Oxycodone Immediate Release Tab) 10 mg PO Q6H PRN PRN Reason: Pain, moderate (4-7) Last Admin: 09/15/18 17:53 Dose: 10 mg Pantoprazole Sodium (Protonix Ec Tab) 40 mg PO 0600 [facility] Last Admin: 09/18/18 05:58 Dose: 40 mg Polyethylene Glycol (Miralax) 17 gm PO BID [facility] Last Admin: 09/17/18 17:08 Dose: 17 gm Pregabalin (Lyrica) 50 mg PO HS [facility] Last Admin: 09/17/18 22:47 Dose: 50 mg Sildenafil Citrate (Revatio) 20 mg PO BID [facility] Last Admin: 09/17/18 17:05 Dose: 20 mg Silver Sulfadiazine (Silvadene 1% 25 Gm) 0 gm TP DAILY [facility] Last Admin: 09/17/18 10:59 Dose: 25 gm - Labs Labs: 09/18/18 07:00 09/18/18 07:00 Attending/Attestation - Attestation I have personally seen and examined this patient.: Yes I have fully participated in the care of the patient.: Yes I have reviewed all pertinent clinical information, including history, physical exam and plan: Yes
[2018-09-16] MEDS: Sildenafil 20 MG TAB PO SCH ×2 (10:01→17:31)
[2018-09-16] MEDS: MethylPREDNISolone 40 mg Vial IVP SCH ×2 (10:01→22:08)
[2018-09-16] MEDS: POLYETHYLENE GLYCOL 3350 17 GM/Dose PACKET PO SCH ×2 (10:03→17:30)
[2018-09-16] MEDS: Lidocaine 2% Jelly (Uro-Jet) TOP SCH (10:03)
[2018-09-16] MEDS: Silver Sulfadiazine 1% Cream (25 gm) TP SCH (10:03)
--- NOTE | 2018-09-16 13:11 | CT ---
Date of service: 09/16/2018 PROCEDURE: CT Chest without contrast HISTORY: Shortness of breath COMPARISON: Comparison made with chest CT scan 07/05/2018. Comparison also made with chest radiograph 09/15/2018 TECHNIQUE: Contiguous axial images were obtained through the chest without intravenous contrast enhancement. Sagittal and coronal reconstructions were performed. Radiation dose: Total exam DLP = 542.17 mGy-cm. This CT exam was performed using one or more of the following dose reduction techniques: Automated exposure control, adjustment of the mA and/or kV according to patient size, and/or use of iterative reconstruction technique. FINDINGS: LUNGS: Severe centrilobular and panlobular emphysematous changes upper lobe predominance again noted. There are areas of interstitial fibrosis/scarring as well.. Patchy atelectasis/infiltrate changes are present in both posterior lower lung zones new since prior CT scan. Minor linear areas of scarring also noted in both lung bases including the lingular and middle lobe regions. MEDIASTINUM: Heart appears enlarged with evidence suggesting underlying anemia. Clinical correlation with laboratory values recommended. Dense mitral valve calcification again noted. No significant pericardial effusion. The ascending thoracic aorta mildly dilated measuring approximately 3.9 cm and descending thoracic aorta measures approximate 3.1 cm. Pulmonary trunk measures approximately 3.4 cm. Moderate aortic atherosclerotic calcification. There are multiple small nonspecific mediastinal lymph nodes. Evaluation for hilar adenopathy limited due to the lack of circulating intravenous contrast material. Trachea midline and patent with no large central endoluminal lesions. All by PLEURA: No pleural fluid. No pneumothorax. BONES: Redemonstrated are kyphoplasty cement within a chronic anterior wedge compression fractures of the T5 and T7 segments. Mild multilevel degenerative spondylosis of the thoracic spine also noted. UPPER ABDOMEN: There is a sliding-type hiatal hernia which projects superiorly into the left medial arminda thorax the Cholelithiasis. Exophytic cyst upper pole right kidney measuring approximately 4.4 cm in greatest dimension. OTHER FINDINGS: None. IMPRESSION: Severe centrilobular and panlobular emphysematous changes upper lobe predominance again noted. There are areas of interstitial fibrosis/scarring as well.. Patchy atelectasis/infiltrate changes are present in both posterior lower lung zones new since prior CT scan. Minor linear areas of scarring also noted in both lung bases including the lingular and middle lobe regions. The ascending thoracic aorta mildly dilated measuring approximately 3.9 cm There is a sliding-type hiatal hernia which projects superiorly into the left medial arminda thorax the Cholelithiasis. Exophytic cyst upper pole right kidney measuring approximately 4.4 cm in greatest dimension.
--- NOTE | 2018-09-16 14:36 | CP.PCM.PN ---
Subjective - Date & Time of Evaluation Date of Evaluation: 09/16/18 Time of Evaluation: 11:35 - Subjective Subjective: Comfortable, less cough, no SOB at rest. Objective - Vital Signs/Intake and Output Vital Signs (last 24 hours): Temp Pulse Resp BP Pulse Ox 97.9 F 62 20 114/61 98 09/15/18 06:00 09/15/18 09:41 09/15/18 06:00 09/15/18 09:41 09/15/18 06:00 - Medications Medications: Current Medications Albuterol/Ipratropium (Duoneb 3 Mg/0.5 Mg (3 Ml) Ud) 3 ml [facility]H [id number] [facility] Last Admin: 09/15/18 13:13 Dose: 3 ml Arformoterol Tartrate (Brovana) 15 mcg IH [id number] [facility] Last Admin: 09/15/18 07:46 Dose: 15 mcg Aspirin (Ecotrin) 81 mg PO DAILY [facility] Last Admin: 09/15/18 09:41 Dose: 81 mg Atorvastatin Calcium (Lipitor) 20 mg PO DIN [facility] Last Admin: 09/14/18 19:31 Dose: 20 mg Budesonide (Pulmicort Respules) 0.5 mg IH [id number] [facility] Last Admin: 09/15/18 07:47 Dose: 0.5 mg Cyclobenzaprine HCl (Flexeril) 5 mg PO BID [facility] Last Admin: 09/15/18 09:41 Dose: 5 mg Doxycycline Hyclate (Doryx) 100 mg PO Q12 [facility]; Protocol Last Admin: 09/15/18 09:41 Dose: 100 mg Escitalopram Oxalate (Lexapro) 10 mg PO DAILY [facility] Last Admin: 09/15/18 09:41 Dose: 10 mg Famotidine (Pepcid) 20 mg PO 1000,2200 [facility] Last Admin: 09/15/18 09:42 Dose: 20 mg Cefepime HCl (Maxipime 1gm) 1 gm in 100 mls @ 100 mls/hr IVPB Q8 [facility]; Protocol Last Admin: 09/15/18 05:47 Dose: 100 mls/hr Lidocaine HCl (Xylocaine 2% (Uro-Jet)) 1 ea TOP DAILY [facility] Methylprednisolone (Solu-Medrol) 40 mg IVP Q12 [facility] Last Admin: 09/15/18 09:40 Dose: 40 mg Metoprolol Tartrate (Lopressor) 50 mg PO BID [facility] Last Admin: 09/15/18 09:41 Dose: 50 mg Montelukast Sodium (Singulair) 10 mg PO [facility] Last Admin: 09/14/18 21:24 Dose: 10 mg Oxycodone HCl (Oxycodone Immediate Release Tab) 10 mg PO Q6H PRN PRN Reason: Pain, moderate (4-7) Last Admin: 09/15/18 09:52 Dose: 10 mg Pantoprazole Sodium (Protonix Ec Tab) 40 mg PO 0600 [facility] Last Admin: 09/15/18 05:48 Dose: 40 mg Polyethylene Glycol (Miralax) 17 gm PO BID [facility] Last Admin: 09/15/18 09:41 Dose: 17 gm Pregabalin (Lyrica) 50 mg PO HS [facility] Last Admin: 09/14/18 21:24 Dose: 50 mg Sildenafil Citrate (Revatio) 20 mg PO BID [facility] Last Admin: 09/15/18 09:41 Dose: 20 mg Silver Sulfadiazine (Silvadene 1% 25 Gm) 0 gm TP DAILY [facility] Last Admin: 09/14/18 11:24 Dose: 25 gm - Labs Labs: 09/15/18 06:10 09/15/18 06:10 - Constitutional Appears: Chronically Ill - Head Exam Head Exam: NORMAL INSPECTION - Respiratory Exam Respiratory Exam: Decreased Breath Sounds - Cardiovascular Exam Cardiovascular Exam: +S1, +S2 - GI/Abdominal Exam GI & Abdominal Exam: Soft. absent: Tenderness Assessment and Plan - Assessment and Plan (Free Text) Plan: Assessment consider right sided healthcare-associated pneumonia S/P UTI with E. coli, uncomplicated. probably cystitis thoracic vertebral compression fractures S/P kyphoplasty COPD chronic renal failure pulmonary HTN PVD GERD Plan continue Vancomycin and Cefepime and Doxycycline day 3 pending final blood, sputum cx; PCT is only 0.24, urine Legionella Ag is negative will continue to monitor clinically target 4-7 days of antibiotics
--- NOTE | 2018-09-16 15:26 | PN ---
DATE: 09/16/2018 SUBJECTIVE: The patient is 78 years old, seen and examined, lying in bed. Seems to be comfortable. Complained of back pain. Has cough and congestion. PHYSICAL EXAMINATION: VITAL SIGNS: The patient is afebrile, pulse 62, respirations 18, blood pressure 112/64. LUNGS: Bilateral fair air flow. Soft crackles in upper lung region. HEART: S1 and S2 audible. ABDOMEN: Soft, nontender. No rebound. No guarding. NEUROLOGICAL: The patient is awake and alert. Able to communicate. EXTREMITIES: Bilateral legs, she has +1 edema. She has right heel ulcer. She also has sacral decubiti stage 3. LABORATORY DATA: WBC 7.4, hemoglobin 8.5, hematocrit 26.9, platelets 257. Chemistry: Sodium 132, potassium 3.4, chloride 99, CO2 of 23, BUN 34, creatinine 2.3, blood sugar of 126. Wound culture positive for coag-negative Staph. Blood cultures are negative. MRI of the lower extremity shows mild heterogenous bone marrow edema noted in the calcaneal bone without evidence of cortical destruction or erosion. Possibility of osteomyelitis is less likely. ASSESSMENT: 1. Sacral decubiti. 2. Right heel ulcer. 3. Renal insufficiency. 4. Metastatic breast cancer. 5. Chronic obstructive pulmonary disease. 6. Bilateral infiltrate. PLAN: Currently, the patient is on nebulizer treatment. She is on Brovana, she is on doxycycline. She is getting nebulizer treatment. She is on cefepime. She is on IV steroids. I will order for CT of the chest. Continue local wound care. The patient's oral intake is very poor, so we will start her on dietary supplements. We will reevaluate the patient in a.m. Charla Inman MD
[2018-09-17] MEDS: Albuterol-Ipratrop 3 mg / 0.5 (3 ml) UD IH SCH ×4 (01:56→20:15)
[2018-09-17] MEDS: Cefepime 1gm in NS 100ml 1 GM/100 ML BAG IVPB SCH ×3 (05:54→22:49)
[2018-09-17] MEDS: Pantoprazole 40 mg EC Tab PO SCH (05:54)
[2018-09-17] MEDS: Arformoterol 15 mcg/2 ml Inh Sol IH SCH ×2 (09:19→20:15)
[2018-09-17] MEDS: Budesonide 0.5 mg/2 ml Inhal Susp UD IH SCH ×2 (09:20→20:15)
[2018-09-17] MEDS: POLYETHYLENE GLYCOL 3350 17 GM/Dose PACKET PO SCH ×2 (10:59→17:08)
[2018-09-17] MEDS: Silver Sulfadiazine 1% Cream (25 gm) TP SCH (10:59)
[2018-09-17] MEDS: Sildenafil 20 MG TAB PO SCH ×2 (11:00→17:05)
[2018-09-17] MEDS: Lidocaine 2% Jelly (Uro-Jet) TOP SCH (11:01)
--- NOTE | 2018-09-17 11:01 | CP.PCM.PN ---
Subjective - Date & Time of Evaluation Date of Evaluation: 09/17/18 Time of Evaluation: 09:50 - Subjective Subjective: Patient is having some difficulty breathing, no fevers, saw patient with Dr. Mendosa at bedside. Has some wheezing. Objective - Vital Signs/Intake and Output Vital Signs (last 24 hours): Temp Pulse Resp BP Pulse Ox 97.4 F L 67 18 112/64 96 09/16/18 06:00 09/16/18 10:02 09/16/18 06:00 09/16/18 10:02 09/16/18 06:00 Intake and Output: 09/16/18 09/16/18 06:59 18:59 Intake Total 1440 Balance 1440 - Medications Medications: Current Medications Albuterol/Ipratropium (Duoneb 3 Mg/0.5 Mg (3 Ml) Ud) 3 ml IH [id number] [facility] Last Admin: 09/16/18 13:18 Dose: 3 ml Arformoterol Tartrate (Brovana) 15 mcg IH [id number] [facility]PLAC[facility] Last Admin: 09/16/18 07:05 Dose: Not Given Aspirin (Ecotrin) 81 mg PO DAILY [facility] Last Admin: 09/16/18 10:02 Dose: 81 mg Atorvastatin Calcium (Lipitor) 20 mg PO DIN [facility] Last Admin: 09/15/18 17:55 Dose: 20 mg Budesonide (Pulmicort Respules) 0.5 mg IH [id number] [facility]PL[facility] Last Admin: 09/16/18 07:05 Dose: Not Given Cyclobenzaprine HCl (Flexeril) 5 mg PO BID [facility] Last Admin: 09/16/18 10:02 Dose: 5 mg Doxycycline Hyclate (Doryx) 100 mg PO Q12 [facility]; Protocol Last Admin: 09/16/18 10:02 Dose: 100 mg Escitalopram Oxalate (Lexapro) 10 mg PO DAILY [facility] Last Admin: 09/16/18 10:01 Dose: 10 mg Famotidine (Pepcid) 20 mg PO 1000,2200 [facility] Last Admin: 09/16/18 10:02 Dose: 20 mg Cefepime HCl (Maxipime 1gm) 1 gm in 100 mls @ 100 mls/hr IVPB Q8 [facility]; Protocol Last Admin: 09/16/18 14:09 Dose: 100 mls/hr Lidocaine HCl (Xylocaine 2% (Uro-Jet)) 1 ea TOP DAILY [facility] Last Admin: 09/16/18 10:03 Dose: Not Given Methylprednisolone (Solu-Medrol) 40 mg IVP Q12 [facility] Last Admin: 09/16/18 10:01 Dose: 40 mg Metoprolol Tartrate (Lopressor) 50 mg PO BID [facility] Last Admin: 09/16/18 10:02 Dose: 50 mg Montelukast Sodium (Singulair) 10 mg PO HS [facility] Last Admin: 09/15/18 22:10 Dose: 10 mg Oxycodone HCl (Oxycodone Immediate Release Tab) 10 mg PO Q6H PRN PRN Reason: Pain, moderate (4-7) Last Admin: 09/15/18 17:53 Dose: 10 mg Pantoprazole Sodium (Protonix Ec Tab) 40 mg PO 0600 [facility] Last Admin: 09/16/18 05:11 Dose: 40 mg Polyethylene Glycol (Miralax) 17 gm PO BID [facility] Last Admin: 09/16/18 10:03 Dose: Not Given Pregabalin (Lyrica) 50 mg PO HS [facility] Last Admin: 09/15/18 22:10 Dose: 50 mg Sildenafil Citrate (Revatio) 20 mg PO BID [facility] Last Admin: 09/16/18 10:01 Dose: 20 mg Silver Sulfadiazine (Silvadene 1% 25 Gm) 0 gm TP DAILY [facility] Last Admin: 09/16/18 10:03 Dose: Not Given - Labs Labs: 09/16/18 07:45 09/16/18 07:45 - Constitutional Appears: Chronically Ill - Head Exam Head Exam: NORMAL INSPECTION - Respiratory Exam Respiratory Exam: Decreased Breath Sounds, Wheezes (expiratory, diffuse) - Cardiovascular Exam Cardiovascular Exam: +S1, +S2 - GI/Abdominal Exam GI & Abdominal Exam: Soft. absent: Tenderness Assessment and Plan - Assessment and Plan (Free Text) Plan: Assessment consider right sided healthcare-associated pneumonia S/P UTI with E. coli, uncomplicated. probably cystitis thoracic vertebral compression fractures S/P kyphoplasty COPD chronic renal failure pulmonary HTN PVD GERD Plan continue Vancomycin and Cefepime and Doxycycline day 4; PCT is only 0.24, urine Legionella Ag is negative will continue to monitor clinically target 4-7 days of antibiotics follow up recommendations of Dr. Mendosa
--- NOTE | 2018-09-17 12:01 | CP.PCM.PN ---
<Claudette Cai - Last Filed: 09/17/18 12:01> Subjective - Date & Time of Evaluation Date of Evaluation: 09/17/18 Time of Evaluation: 11:58 - Subjective Subjective: Podiatry Progress Note: Dr. Denson 78F patient seen and evaluated at bedside with posterior right heel wound. Patient resting comfortably and in NAD. Denies nausea/vomiting/fever/chest pain, admits to shortness of breath secondary to congestion. Daughter and present at bedside this morning. Objective - Vital Signs/Intake and Output Vital Signs (last 24 hours): Temp Pulse Resp BP Pulse Ox 98.3 F 62 18 114/64 96 09/17/18 06:00 09/17/18 11:00 09/17/18 06:00 09/17/18 11:00 09/17/18 06:00 Intake and Output: 09/17/18 09/17/18 06:59 18:59 Intake Total 650 Balance 650 - Medications Medications: Current Medications Albuterol/Ipratropium (Duoneb 3 Mg/0.5 Mg (3 Ml) Ud) 3 ml IH [id number] [facility] Last Admin: 09/17/18 09:19 Dose: 3 ml Arformoterol Tartrate (Brovana) 15 mcg IH [id number] [facility] Last Admin: 09/17/18 09:19 Dose: 15 mcg Aspirin (Ecotrin) 81 mg PO DAILY [facility] Last Admin: 09/17/18 11:00 Dose: 81 mg Atorvastatin Calcium (Lipitor) 20 mg PO DIN [facility] Last Admin: 09/16/18 17:30 Dose: 20 mg Budesonide (Pulmicort Respules) 0.5 mg IH [id number] [facility] Last Admin: 09/17/18 09:20 Dose: 0.5 mg Cyclobenzaprine HCl (Flexeril) 5 mg PO BID [facility] Last Admin: 09/17/18 10:58 Dose: 5 mg Doxycycline Hyclate (Doryx) 100 mg PO Q12 [facility]; Protocol Last Admin: 09/17/18 11:01 Dose: 100 mg Escitalopram Oxalate (Lexapro) 10 mg PO DAILY [facility] Last Admin: 09/17/18 11:00 Dose: 10 mg Famotidine (Pepcid) 20 mg PO 1000,2200 [facility] Last Admin: 09/17/18 11:00 Dose: 20 mg Cefepime HCl (Maxipime 1gm) 1 gm in 100 mls @ 100 mls/hr IVPB Q8 [facility]; Protocol Last Admin: 09/17/18 05:54 Dose: 100 mls/hr Lidocaine HCl (Xylocaine 2% (Uro-Jet)) 1 ea TOP DAILY [facility] Last Admin: 09/17/18 11:01 Dose: 1 ea Methylprednisolone (Solu-Medrol) 40 mg IVP Q6 [facility] Metoprolol Tartrate (Lopressor) 50 mg PO BID [facility] Last Admin: 09/17/18 11:00 Dose: 50 mg Montelukast Sodium (Singulair) 10 mg PO HS [facility] Last Admin: 09/16/18 22:09 Dose: 10 mg Oxycodone HCl (Oxycodone Immediate Release Tab) 10 mg PO Q6H PRN PRN Reason: Pain, moderate (4-7) Last Admin: 09/15/18 17:53 Dose: 10 mg Pantoprazole Sodium (Protonix Ec Tab) 40 mg PO 0600 [facility] Last Admin: 09/17/18 05:54 Dose: 40 mg Polyethylene Glycol (Miralax) 17 gm PO BID [facility] Last Admin: 09/17/18 10:59 Dose: 17 gm Pregabalin (Lyrica) 50 mg PO HS [facility] Last Admin: 09/16/18 22:09 Dose: 50 mg Sildenafil Citrate (Revatio) 20 mg PO BID [facility] Last Admin: 09/17/18 11:00 Dose: 20 mg Silver Sulfadiazine (Silvadene 1% 25 Gm) 0 gm TP DAILY [facility] Last Admin: 09/17/18 10:59 Dose: 25 gm - Labs Labs: 09/16/18 07:45 09/16/18 07:45 - Constitutional Appears: Non-toxic, No Acute Distress - Head Exam Head Exam: ATRAUMATIC, NORMOCEPHALIC - Extremities Exam Additional comments: RLE focused exam: Vasc: DP/PT pulses fully palpable 2/4 b/l. Skin temperature warm to warm from proximal to distal. CFT < 3 seconds to all digits b/l. No edema noted b/l Neuro: Gross and protective sensation grossly intact b/l Derm: Posterior right heel ulceration measuring 3 cm X 2 cm with 10% fibrotic and 90% granular base, superficial, negative probe to bone, positive isabel-wound erythema, positive sero-sanguinous drainage, No other open lesions, wounds, maceration, xerosis, abnormal pigmentation or abnormal growths noted b/l Ortho: Pain with palpation of blister site. B/l HAV deformities noted. No other gross deformities noted. ROM WNL to all major joints b/l. MMT 5/5 in all major muscle groups b/l - Neurological Exam Neurological Exam: Alert, Awake, Oriented x3 - Psychiatric Exam Psychiatric exam: Normal Affect Assessment and Plan - Assessment and Plan (Free Text) Assessment: 77F with posterior right heel ulceration; stable Plan: Patient seen and evaluated Discussed with attending Dr. Denson Afebrile,absent leukocytosis Wound Culture: Coag neg staph Right Heel X-ray: no signs of osteo R MRI; bone marrow edema in calcaneus without evidence of cortical destruction or erosion likely represent bone marrow reaction, possibility of OM less likely Right heel wound cleaned with saline, and dressed with adaptic, maxorb, DSD Patient to wear Multipodus boots at all times while in bed ID consulted; per ID reccs continue Vancomycin and Cefepime and Doxycycline day 4; PCT is only 0.24, urine Legionella Ag is negative, will continue to monitor clinically, target 4-7 days of antibiotics Will continue to follow patient while in house <Angel Denson - Last Filed: 09/18/18 09:03> Objective - Vital Signs/Intake and Output Vital Signs (last 24 hours): Temp Pulse Resp BP Pulse Ox 97.7 F 63 16 103/54 L 94 L 09/17/18 22:00 09/17/18 22:00 09/17/18 22:00 09/17/18 22:00 09/17/18 22:00 Intake and Output: 09/18/18 09/18/18 06:59 18:59 Output Total 200 Balance -200 - Medications Medications: Current Medications Albuterol/Ipratropium (Duoneb 3 Mg/0.5 Mg (3 Ml) Ud) 3 ml IH Q1H PRN PRN Reason: Shortness of Breath Last Admin: 09/18/18 08:32 Dose: 3 ml Albuterol/Ipratropium (Duoneb 3 Mg/0.5 Mg (3 Ml) Ud) 3 ml IH [id number] Arformoterol Tartrate (Brovana) 15 mcg IH [id number] [facility] Last Admin: 09/18/18 07:34 Dose: 15 mcg Aspirin (Ecotrin) 81 mg PO DAILY [facility] Last Admin: 09/17/18 11:00 Dose: 81 mg Atorvastatin Calcium (Lipitor) 20 mg PO DIN [facility] Last Admin: 09/17/18 17:05 Dose: 20 mg Budesonide (Pulmicort Respules) 0.5 mg IH [id number] [facility] Last Admin: 09/18/18 07:35 Dose: 0.5 mg Cyclobenzaprine HCl (Flexeril) 5 mg PO BID [facility] Last Admin: 09/17/18 17:04 Dose: 5 mg Doxycycline Hyclate (Doryx) 100 mg PO Q12 [facility]; Protocol Last Admin: 09/17/18 22:48 Dose: 100 mg Enoxaparin Sodium (Lovenox) 30 mg SC DAILY [facility]; Protocol Last Admin: 09/17/18 17:05 Dose: 30 mg Escitalopram Oxalate (Lexapro) 10 mg PO DAILY [facility] Last Admin: 09/17/18 11:00 Dose: 10 mg Famotidine (Pepcid) 20 mg PO 1000,2200 [facility] Last Admin: 09/17/18 22:49 Dose: 20 mg Cefepime HCl (Maxipime 1gm) 1 gm in 100 mls @ 100 mls/hr IVPB Q8 [facility]; Protocol Last Admin: 09/18/18 05:57 Dose: 100 mls/hr Lidocaine HCl (Xylocaine 2% (Uro-Jet)) 1 ea TOP DAILY [facility] Last Admin: 09/17/18 11:01 Dose: 1 ea Methylprednisolone (Solu-Medrol) 40 mg IVP Q8H [facility] Metoprolol Tartrate (Lopressor) 50 mg PO BID [facility] Last Admin: 09/17/18 17:05 Dose: 50 mg Montelukast Sodium (Singulair) 10 mg PO HS [facility] Last Admin: 09/17/18 22:48 Dose: 10 mg Oxycodone HCl (Oxycodone Immediate Release Tab) 10 mg PO Q6H PRN PRN Reason: Pain, moderate (4-7) Last Admin: 09/15/18 17:53 Dose: 10 mg Pantoprazole Sodium (Protonix Ec Tab) 40 mg PO 0600 [facility] Last Admin: 09/18/18 05:58 Dose: 40 mg Polyethylene Glycol (Miralax) 17 gm PO BID [facility] Last Admin: 09/17/18 17:08 Dose: 17 gm Pregabalin (Lyrica) 50 mg PO HS [facility] Last Admin: 09/17/18 22:47 Dose: 50 mg Sildenafil Citrate (Revatio) 20 mg PO BID [facility] Last Admin: 09/17/18 17:05 Dose: 20 mg Silver Sulfadiazine (Silvadene 1% 25 Gm) 0 gm TP DAILY [facility] Last Admin: 09/17/18 10:59 Dose: 25 gm - Labs Labs: 09/18/18 07:00 09/18/18 07:00 Attending/Attestation - Attestation I have personally seen and examined this patient.: Yes I have fully participated in the care of the patient.: Yes I have reviewed all pertinent clinical information, including history, physical exam and plan: Yes
[2018-09-17] MEDS: MethylPREDNISolone 40 mg Vial IVP SCH ×2 (12:09→17:04)
[2018-09-17] MEDS: Enoxaparin 30 mg Syringe SC SCH (17:05)
--- NOTE | 2018-09-17 17:14 | RAD ---
Date of service: 09/17/2018 HISTORY: R/O CHF COMPARISON: No prior. FINDINGS: LUNGS: The interstitial markings are increased and coarsened; rule out underlying mild chronic compensated pulmonary venous congestion. Bibasilar atelectasis and/or infiltrates right greater than left.. PLEURA: No significant pleural effusion identified, no pneumothorax apparent. CARDIOVASCULAR: Mild aortic atherosclerotic calcification present. Heart is mildly enlarged. Sternotomy wires again noted. There are apparent calcified mediastinal and left hilar lymph nodes. OSSEOUS STRUCTURES: No significant abnormalities. VISUALIZED UPPER ABDOMEN: Normal. OTHER FINDINGS: None. IMPRESSION: The interstitial markings are increased and coarsened; rule out underlying mild chronic compensated pulmonary venous congestion. Bibasilar atelectasis and/or infiltrates right greater than left..
--- NOTE | 2018-09-17 20:46 | PN ---
DATE: 09/17/2018 SUBJECTIVE: Patient is 78 years old, seen and examined. Seem to be more alert, but still has shortness of breath, has cough, has bilateral upper lung region gurgling. Has poor appetite, eating very little. She states she has no appetite. PHYSICAL EXAMINATION: VITAL SIGNS: She is afebrile, pulse 62, respiration 18, and blood pressure 114/64. LUNGS: Bilateral soft crackle in upper lung region. HEART: S1 and S2 audible. ABDOMEN: Soft and nontender. No rebound. No guarding. NEUROLOGIC: She is awake and alert. Able to communicate. Right foot is in the dressing and she has stage III sacral decubiti. LABORATORY DATA: There [place] [address]. Flu test is negative. Right foot cultures got negative Staph. Blood cultures are negative. She had CT of the chest done that shows cholelithiasis. Severe centrilobular and panlobular emphysema and interstitial fibrosis, patchy atelectasis versus infiltrate. Hiatal hernia and cholelithiasis. ASSESSMENT: 1. Chronic obstructive pulmonary disease exacerbation. 2. Patchy infiltrates. 3. Metastatic breast cancer. 4. Right leg severe heel cellulitis. 5. Status post kyphoplasty. 6. Status post multiple falls. PLAN: Currently, the patient is on doxycycline. She is getting nebulizer treatment. She is on statin. She is on metoprolol. She is getting cefepime. She is on IV steroids. We will start her on DVT prophylaxis. She has SCDs though. We will follow up electrolytes and CBC in the a.m. Charla Inman MD
[2018-09-18] MEDS: MethylPREDNISolone 40 mg Vial IVP SCH ×5 (00:51→22:37)
--- NOTE | 2018-09-18 01:24 | PN ---
DATE: 09/17/2018 PULMONARY PROGRESS NOTE SUBJECTIVE: Marcia still has significant shortness of breath. She is lying in bed in no pain, but complains of feeling dyspneic. Dr. Levine is at the bedside. When I entered, describing further wheezing, this is confirmed on physical exam. The patient is being evaluated closely for multiple medical problems as described previously. She continues to do poorly when the corticosteroids are decreased as they were 2 days ago. There is always the combination of both cardiac and pulmonary wheezing. Marcia, despite her problems, is in better mood today. She is able to carry out full conversation, showing concern regarding her problems. We have talked for quite sometime, and upon leaving, she is in better spirits. OBJECTIVE: GENERAL: On examination, Marcia remains in mild shortness of breath, but no real acute distress. VITAL SIGNS: Show a temperature of 98.6. Her respiratory rate is down to 18. Her blood pressure is 110/70, O2 sat 98% with supplemental oxygen. NECK: Supple. No jugular venous distention, bruit, or mass. CARDIOVASCULAR: Regular rhythm. S1, S2 with a soft systolic ejection murmur as is heard previously. There is no gallop or rub. CHEST: There is a global decrease in breath sounds with scattered wheezes throughout both lung chaidez. Minor rhonchi persist as well. ABDOMEN: Soft. Bowel sounds normoactive without mass, guarding, or rebound. EXTREMITIES: Reveal trace edema. No cyanosis or clubbing. SKIN: With various ecchymotic areas and decubitus, unchanged. IMPRESSION: 1. Acute bronchospasm. 2. Rule out underlying congestive heart failure. 3. Sepsis secondary to worsening sacral decubitus and ulcerations. 4. Chronic obstructive pulmonary disease. 5. Pulmonary hypertension. 6. Coronary artery disease. 7. Metastatic breast cancer. 8. Severe peripheral vascular disease. PLAN: We will order a BMP and get a followup chest x-ray. We have increased her corticosteroids in the meantime back to where they were when she was more stable. We have discussed the case at length with Dr. Levine and the RN caring for her. We will follow closely after the repeat x-ray and blood work is completed. Thank you for the opportunity to follow this pamela patient. We will discuss with Dr. Hameed who will take care again starting tomorrow morning to make sure that Marcia is given the best possible opportunity to improve. Davide Mendosa MD
[2018-09-18] MEDS: Albuterol-Ipratrop 3 mg / 0.5 (3 ml) UD IH SCH ×5 (01:50→19:55)
[2018-09-18] MEDS: Cefepime 1gm in NS 100ml 1 GM/100 ML BAG IVPB SCH ×3 (05:57→22:37)
[2018-09-18] MEDS: Pantoprazole 40 mg EC Tab PO SCH (05:58)
[2018-09-18 07:12] LABS: HEMOGLOBIN 8.6 g/dL (12.0-16.0); LYMPH # 0.2 (1.2-3.4); LYMPH % 2.3 % (22.0-35.0); MEAN CELL VOLUME 92.6 fl (80.0-105.0); MEAN CORPUSCULAR HEMOGLOBIN 30.3 pg (25.0-35.0); MEAN CORPUSCULAR HGB CONC 32.7 g/dl (31.0-37.0); MEAN PLATELET VOLUME 9.5 fl (7.0-11.0); MONO # 0.1 (0.1-0.6); MONO % 1.7 % (1.0-6.0); PLATELET COUNT 219 10^3/uL (120.0-450.0); RBC 2.84 10^6/uL (3.5-6.1); RED CELL DISTRIBUTION WIDTH 16.7 % (11.5-14.5)
[2018-09-18] MEDS: Arformoterol 15 mcg/2 ml Inh Sol IH SCH ×2 (07:34→19:55)
[2018-09-18] MEDS: Budesonide 0.5 mg/2 ml Inhal Susp UD IH SCH ×2 (07:35→19:55)
[2018-09-18 07:38] LABS: ALBUMIN 2.3 g/dL (3.0-4.8); CALCIUM 8.8 mg/dL (8.4-10.5)
--- NOTE | 2018-09-18 08:31 | PN ---
DATE: 09/16/2018 PULMONARY PROGRESS NOTE SUBJECTIVE: Marcia is feeling somewhat improved today over the last several days. She still has shortness of breath and remains very anxious. The chart has been reviewed and we note that in addition to the chronic obstructive pulmonary disease and coronary artery disease, the patient has metastatic breast cancer and a partial colectomy. PHYSICAL EXAMINATION: GENERAL: Marcia is remaining in bed, appears to be comfortable at rest. Rare cough. She appears to be chronically ill. VITAL SIGNS: Shows that she is afebrile 98.7, pulse is 65, respiratory rate 20, blood pressure 100/60, O2 saturation 98% on supplemental oxygen. HEENT: Normocephalic, atraumatic. NECK: No JVD. No bruit No thyromegaly. No mass. CARDIOVASCULAR: Regular rhythm. S1, S2. Soft systolic ejection murmur at the lower left sternal border. No gallop is heard. CHEST: Global decrease in breath sounds, bilateral rales and rhonchi noted. There is no wheezing. ABDOMEN: Soft. Bowel sounds normoactive without mass, guarding, rebound. No organomegaly. EXTREMITIES: Reveal no clubbing or cyanosis. There is trace edema. There is no Homans' sign. SKIN: Shows multiple ecchymotic areas. Multiple sacral decubiti are noted as well. Lower extremities wrapped. NEUROLOGIC: No focality, but the patient is in generally poor shape. CLINICAL IMPRESSION: 1. Advanced chronic obstructive pulmonary disease. 2. Advanced metastatic breast cancer. 3. Severe peripheral vascular disease. 4. Sepsis secondary to decubitus ulcers and lacerations. Overall prognosis appears guarded. The patient has multiple medical problems which are poorly responsive to medical therapy. The case has been reviewed at length with the patient and the patient's daughter over the phone. Events noted. PLAN: Continue vigorous supportive care. Regarding pulmonary status; inhaled bronchodilators, corticosteroids are required. Continue vigorous antibiotic therapy with the help of infectious disease Dr. Levine. We will discuss with Cardiology as well. Followup x-ray has been requested to review any changes in the status. We will follow closely with you. Davide Mendosa MD [facility] # [id number]
[2018-09-18] MEDS: Albuterol-Ipratrop 3 mg / 0.5 (3 ml) UD IH PRN (08:32)
--- NOTE | 2018-09-18 09:03 | PN ---
DATE: 09/18/2018 PULMONARY NOTE SUBJECTIVE: The patient appears comfortable this morning. She is not short of breath at rest. She does appear very weak, and confused. PHYSICAL EXAMINATION VITAL SIGNS: (Last noted in the computer): Temperature is 97.7, pulse 63, respirations 16 and blood pressure 103/54. Oxygen saturation on nasal cannula is 94%-95%. HEENT: Normocephalic and atraumatic. No JVD. CARDIOVASCULAR: Systolic ejection murmur at the lower left sternal border. No S3 gallop. LUNGS: Decreased breath sounds at the bases. Minimal rhonchi. Minimal wheezing. EXTREMITIES: Mild edema. No cyanosis. No clubbing. Calves are nontender to palpation. GI: Abdomen is soft, nontender and nondistended. Bowel sounds are positive. SKIN: Multiple ecchymotic areas on her arms. Multiple sacral decubiti. The right foot remains wrapped. NEUROLOGIC: Exam limited at the present time.. PERTINENT LABORATORY DATA: CAT scan of the chest was done on 09/06/2018 and reviewed. There are new, patchy changes at both bases. These changes may represent pneumonia or atelectasis. IMPRESSION: 1. Failure to thrive. 2. Worsening sacral decubitus. 3. Right foot ulcerations. 4. Advanced chronic obstructive pulmonary disease. 5. Rule out bibasilar pneumonia. 6. Pulmonary hypertension. 7. Metastatic breast cancer. 8. Peripheral vascular disease. PLAN: The patient appears comfortable this morning. She is not short of breath at rest. She does appear very weak. I did discuss the case with the nurse and daughter (at bedside) at length. Apparently, yesterday, the patient was more short of breath. She does look better to the nurse and daughter this morning. She is confused. I did review the CAT scan of the chest. Findings are noted above. I will order a procalcitonin level - to try and discern whether the findings on CAT scan represent true pneumonia or not. There have been no temperature spikes over the weekend. There is no leukocytosis. The patient remains on antibiotic therapy - as per Infectious Disease. Input by Dr. Levine is noted. On physical exam, there is no significant bronchospasm noted. In addition, there is no significant alveolar-arterial gradient. I will continue the current nebulizer treatments and decrease the intravenous steroids this morning. I will continue the aspiration precautions. Clinical status of the patient appears improved - compared to yesterday. However, again, it does appear that the overall/future prognosis for this patient is poor. Again, I did discuss the case with the daughter at length. I will discuss the above the attending physician. Anthony Hameed MD MTDD
[2018-09-18 09:23] LABS: BAND 1 % (0-2); LYMPHOCYTE 5 % (22.0-35.0); MONOCYTE 2 % (1.0-6.0); NEUTROPHIL 92 % (50.0-70.0); PLATELET ESTIMATE NORMAL (NORMAL)
[2018-09-18] MEDS: Sildenafil 20 MG TAB PO SCH ×2 (09:55→19:06)
--- NOTE | 2018-09-18 09:55 | CP.PCM.PN ---
<Luis Manuel Montoya - Last Filed: 09/18/18 15:49> Subjective - Date & Time of Evaluation Date of Evaluation: 09/18/18 Time of Evaluation: 09:53 - Subjective Subjective: Podiatry Progress Note: Dr. Denson 78 y/o F patient seen and evaluated at bedside with posterior right heel wound. Patient was sleeping at the time of the visit. Patient is poor historian and her aid was at the bed side. Her aid denies any overnight nausea/vomiti ng/fever/chest pain, Patient has shortness of breath secondary to congestion. There is no other pedal complaint at this time. Objective - Vital Signs/Intake and Output Vital Signs (last 24 hours): Temp Pulse Resp BP Pulse Ox 97.8 F 65 18 128/72 96 09/18/18 06:00 09/18/18 06:00 09/18/18 06:00 09/18/18 06:00 09/18/18 06:00 Intake and Output: 09/18/18 09/18/18 06:59 18:59 Output Total 200 Balance -200 - Medications Medications: Current Medications Albuterol/Ipratropium (Duoneb 3 Mg/0.5 Mg (3 Ml) Ud) 3 ml IH Q1H PRN PRN Reason: Shortness of Breath Last Admin: 09/18/18 08:32 Dose: 3 ml Albuterol/Ipratropium (Duoneb 3 Mg/0.5 Mg (3 Ml) Ud) 3 ml IH [id number] [facility] Arformoterol Tartrate (Brovana) 15 mcg IH [id number] [facility] Last Admin: 09/18/18 07:34 Dose: 15 mcg Aspirin (Ecotrin) 81 mg PO DAILY [facility] Last Admin: 09/17/18 11:00 Dose: 81 mg Atorvastatin Calcium (Lipitor) 20 mg PO DIN [facility] Last Admin: 09/17/18 17:05 Dose: 20 mg Budesonide (Pulmicort Respules) 0.5 mg IH [id number] [facility] Last Admin: 09/18/18 07:35 Dose: 0.5 mg Cyclobenzaprine HCl (Flexeril) 5 mg PO BID [facility] Last Admin: 09/17/18 17:04 Dose: 5 mg Doxycycline Hyclate (Doryx) 100 mg PO Q12 [facility]; Protocol Last Admin: 09/17/18 22:48 Dose: 100 mg Enoxaparin Sodium (Lovenox) 30 mg SC DAILY [facility]; Protocol Last Admin: 09/17/18 17:05 Dose: 30 mg Escitalopram Oxalate (Lexapro) 10 mg PO DAILY [facility] Last Admin: 09/17/18 11:00 Dose: 10 mg Famotidine (Pepcid) 20 mg PO 1000,2200 [facility] Last Admin: 09/17/18 22:49 Dose: 20 mg Furosemide (Lasix) 20 mg IVP ONCE ONE Stop: 09/18/18 10:01 Cefepime HCl (Maxipime 1gm) 1 gm in 100 mls @ 100 mls/hr IVPB Q8 [facility]; Protocol Last Admin: 09/18/18 05:57 Dose: 100 mls/hr Lidocaine HCl (Xylocaine 2% (Uro-Jet)) 1 ea TOP DAILY [facility] Last Admin: 09/17/18 11:01 Dose: 1 ea Methylprednisolone (Solu-Medrol) 40 mg IVP Q8H [facility] Metoprolol Tartrate (Lopressor) 50 mg PO BID [facility] Last Admin: 09/17/18 17:05 Dose: 50 mg Montelukast Sodium (Singulair) 10 mg PO HS [facility] Last Admin: 09/17/18 22:48 Dose: 10 mg Oxycodone HCl (Oxycodone Immediate Release Tab) 10 mg PO Q6H PRN PRN Reason: Pain, moderate (4-7) Last Admin: 09/15/18 17:53 Dose: 10 mg Pantoprazole Sodium (Protonix Ec Tab) 40 mg PO 0600 [facility] Last Admin: 09/18/18 05:58 Dose: 40 mg Polyethylene Glycol (Miralax) 17 gm PO BID [facility] Last Admin: 09/17/18 17:08 Dose: 17 gm Pregabalin (Lyrica) 50 mg PO HS [facility] Last Admin: 09/17/18 22:47 Dose: 50 mg Sildenafil Citrate (Revatio) 20 mg PO BID [facility] Last Admin: 09/17/18 17:05 Dose: 20 mg Silver Sulfadiazine (Silvadene 1% 25 Gm) 0 gm TP DAILY [facility] Last Admin: 09/17/18 10:59 Dose: 25 gm - Labs Labs: 09/18/18 07:00 09/18/18 07:00 - Constitutional Appears: Non-toxic - Head Exam Head Exam: ATRAUMATIC - Extremities Exam Additional comments: RLE focused exam: Vasc: DP/PT pulses fully palpable 2/4 b/l. Skin temperature gradient warm to warm from proximal to distal. Cap refill < 3 seconds to all digits b/l. No edema noted b/l Neuro: Gross and protective sensation grossly intact b/l. Derm: Posterior right heel ulceration measuring 2.3 cm X 1.7 cm with 10% fibrotic and 90% granular base, superficial, negative probe to bone, positive isabel-wound erythema, positive sero-sanguinous drainage, No other open lesions, wounds, maceration, xerosis, abnormal pigmentation or abnormal growths noted b/l. MSK: No Pain with palpation of periulcerative site. B/l HAV deformities noted. No other gross deformities noted. ROM WNL to all major joints b/l. MMT 5/5 in all major muscle groups b/l. 7 Assessment and Plan - Assessment and Plan (Free Text) Assessment: 7 y/o F patient with posterior right heel ulceration; stable Plan: Patient seen and evaluated Discussed with attending Dr. Denson Charts, labs and vitals reviewed; Afebrile,absent leukocytosis Wound Culture: Coag neg staph Right Heel X-ray: no signs of osteo R MRI; bone marrow edema in calcaneus without evidence of cortical destruction or erosion likely represent bone marrow reaction, possibility of OM less likely Right heel wound cleaned with saline, and dressed with adaptic, maxorb, DSD Patient to wear Multipodus boots at all times while in bed ID consulted; per ID reccs continue Vancomycin and Cefepime and Doxycycline day 4; PCT is only 0.24, urine Legionella Ag is negative, will continue to monitor clinically, target 4-7 days of antibiotics Podiatry will continue to follow up patient while in house <Angel Denson - Last Filed: 09/18/18 17:40> Objective - Vital Signs/Intake and Output Vital Signs (last 24 hours): Temp Pulse Resp BP Pulse Ox 97.9 F 68 16 106/48 L 93 L 09/18/18 14:00 09/18/18 14:00 09/18/18 14:00 09/18/18 14:00 09/18/18 14:00 Intake and Output: 09/18/18 09/18/18 06:59 18:59 Output Total 200 150 Balance -200 -150 - Medications Medications: Current Medications Albuterol/Ipratropium (Duoneb 3 Mg/0.5 Mg (3 Ml) Ud) 3 ml IH Q1H PRN PRN Reason: Shortness of Breath Last Admin: 09/18/18 08:32 Dose: 3 ml Albuterol/Ipratropium (Duoneb 3 Mg/0.5 Mg (3 Ml) Ud) 3 ml IH [id number] [facility] Last Admin: 09/18/18 16:06 Dose: 3 ml Arformoterol Tartrate (Brovana) 15 mcg IH [id number] [facility] Last Admin: 09/18/18 07:34 Dose: 15 mcg Aspirin (Ecotrin) 81 mg PO DAILY [facility] Last Admin: 09/18/18 09:55 Dose: 81 mg Atorvastatin Calcium (Lipitor) 20 mg PO DIN [facility] Last Admin: 09/17/18 17:05 Dose: 20 mg Budesonide (Pulmicort Respules) 0.5 mg IH [id number] [facility] Last Admin: 09/18/18 07:35 Dose: 0.5 mg Cyclobenzaprine HCl (Flexeril) 5 mg PO BID [facility] Last Admin: 09/18/18 09:56 Dose: 5 mg Doxycycline Hyclate (Doryx) 100 mg PO Q12 [facility]; Protocol Last Admin: 09/18/18 09:55 Dose: 100 mg Enoxaparin Sodium (Lovenox) 30 mg SC DAILY [facility]; Protocol Last Admin: 09/18/18 09:56 Dose: 30 mg Escitalopram Oxalate (Lexapro) 10 mg PO DAILY [facility] Last Admin: 09/18/18 09:55 Dose: 10 mg Famotidine (Pepcid) 20 mg PO 1000,2200 [facility] Last Admin: 09/18/18 09:54 Dose: 20 mg Cefepime HCl (Maxipime 1gm) 1 gm in 100 mls @ 100 mls/hr IVPB Q8 [facility]; Protocol Last Admin: 09/18/18 14:58 Dose: 100 mls/hr Lidocaine HCl (Xylocaine 2% (Uro-Jet)) 1 ea TOP DAILY [facility] Last Admin: 09/18/18 09:58 Dose: 1 ea Methylprednisolone (Solu-Medrol) 40 mg IVP Q8H [facility] Last Admin: 02/18/19 14:58 Dose: 40 mg Metoprolol Tartrate (Lopressor) 50 mg PO BID [facility] Last Admin: 09/18/18 09:55 Dose: 50 mg Montelukast Sodium (Singulair) 10 mg PO HS [facility] Last Admin: 09/17/18 22:48 Dose: 10 mg Oxycodone HCl (Oxycodone Immediate Release Tab) 10 mg PO Q6H PRN PRN Reason: Pain, moderate (4-7) Last Admin: 09/15/18 17:53 Dose: 10 mg Pantoprazole Sodium (Protonix Ec Tab) 40 mg PO 0600 [facility] Last Admin: 09/18/18 05:58 Dose: 40 mg Polyethylene Glycol (Miralax) 17 gm PO BID [facility] Last Admin: 09/18/18 09:56 Dose: 17 gm Pregabalin (Lyrica) 50 mg PO HS [facility] Last Admin: 09/17/18 22:47 Dose: 50 mg Sildenafil Citrate (Revatio) 20 mg PO BID [facility] Last Admin: 09/18/18 09:55 Dose: 20 mg Silver Sulfadiazine (Silvadene 1% 25 Gm) 0 gm TP DAILY [facility] Last Admin: 09/17/18 10:59 Dose: 25 gm - Labs Labs: 09/18/18 07:00 09/18/18 07:00 Attending/Attestation - Attestation I have personally seen and examined this patient.: Yes I have fully participated in the care of the patient.: Yes I have reviewed all pertinent clinical information, including history, physical exam and plan: Yes
[2018-09-18] MEDS: Enoxaparin 30 mg Syringe SC SCH (09:56)
[2018-09-18] MEDS: POLYETHYLENE GLYCOL 3350 17 GM/Dose PACKET PO SCH ×2 (09:56→19:07)
[2018-09-18] MEDS: Lidocaine 2% Jelly (Uro-Jet) TOP SCH (09:58)
--- NOTE | 2018-09-18 10:33 | RAD ---
Date of service: 09/18/2018 HISTORY: eval COMPARISON: 09/17/2018 FINDINGS: LUNGS: No active pulmonary disease. PLEURA: No significant pleural effusion identified, no pneumothorax apparent. CARDIOVASCULAR: Aortic calcification Mild cardiomegaly moderate vascular and interstitial congestion OSSEOUS STRUCTURES: Sternal wires VISUALIZED UPPER ABDOMEN: Normal. OTHER FINDINGS: None. IMPRESSION: Moderate vascular and interstitial congestion
--- NOTE | 2018-09-18 11:52 | CP.PCM.CON ---
History of Present Illness - History of Present Illness History of Present Illness: Palliative consult requested by Dr Mario Inman Reason: Goals of care 78 year old female who presented to ED on 09/13/18 with back pain,shortness of breath,right heel wound,sacral decubiti and difficulty ambulating. Family reported that patients appetite is poor. She denied fever,chills,nausea,vomiting,headache,abdominal pain. Head CT: No acute findings MRI of right ankle: Mild heterogeneous marrow edema in calcaneus bone with out evidence of destruction or erosion, not likely osteomyelitis. Soft tissue inflammatory changes and edema of posterior aspect of right foot more prominent laterally Chest CT: Severe centrilobular and panilobular emphysematous changes in upper lobe. Interstitial fibrosis/scarring. Patchy atelectasis bilaterally in the posterior lobes. Dilated ascending thoracic aorta, 3.9cm. Hiatal hernia. Cholelithiasis. Labs: BNP 2050,4760,20732. BUN/DECKHAND OYSTER DREDGE trending upwards; 21/1.5> 34/2.3>52/3.3. H Flu negative. Right leg wound culture coag negative Staph. Blood cultures negative. PMHx: CAD,COPD,degenerative disc disease,T5 compression fracture, breast cancer ER/MI+ s/p adjuvant chemotherapy, CKD, UTI, deconditioning PSHx: right breast lumpectomy, port a cath,partial colectomy,kyphoplasty. 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 Family History: Breast and ovarian cancer. Advance Care Planning: The patient does not have an Advanced Directive. Review of Systems: As per HPI, 12 point ROS otherwise negative. Past Patient History - Infectious Disease Hx of Infectious Diseases: None - Past Social History Smoking Status: Never Smoked - CARDIAC Hx Cardiac Disorders: Yes (CAD) Hx Congestive Heart Failure: Yes Hx Hypercholesterolemia: Yes Hx Hypertension: Yes - PULMONARY Hx Chronic Obstructive Pulmonary Disease (COPD): Yes - NEUROLOGICAL Hx Neurological Disorder: No Other/Comment: peripheral neuropathy - HEENT Hx HEENT Problems: Yes (reading glasses) Hx Cataracts: Yes (cataract sx b/l lens implant age 52) - RENAL Hx Chronic Kidney Disease: No - ENDOCRINE/METABOLIC Hx Endocrine Disorders: No - HEMATOLOGICAL/ONCOLOGICAL Hx Blood Transfusions: No Hx Blood Transfusion Reaction: No - INTEGUMENTARY Other/Comment: b/l arms multiple eccymotic areas "I bruise easily.", fell about a month ago slipped on a towel on the floor dry scab left knee surrounding skin red, fading bruises both knees from "crawling on floor when I fell", bruises both arms, redness to bottom of both feet, dry skin, redness tp sides of toes 4 & 5 both feet, redness to b/l bunyons, crooked great toes both feet, ble +1 pitting edema, red coccyx - MUSCULOSKELETAL/RHEUMATOLOGICAL Hx Arthritis: Yes - GASTROINTESTINAL Hx Gastrointestinal Disorders: Yes (reflux/colon polyp) - GENITOURINARY/GYNECOLOGICAL Hx Genitourinary Disorders: No Hx Reproductive Disorders: Yes (hyst/r breast lumpectomy) - PSYCHIATRIC Hx Psychophysiologic Disorder: Yes Hx Anxiety: Yes Hx Depression: No Hx Emotional Abuse: No Hx Physical Abuse: No Hx Substance Use: No - SURGICAL HISTORY Other/Comment: R breast bx 10/26/17, right external jugular venous port 04/24/18 dr carlyle albrecht, 03/02/18 lap and 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 results as per pt, done by dr ahsan dubose - ANESTHESIA Hx Anesthesia Reactions: No Hx Malignant Hyperthermia: No Meds Allergies/Adverse Reactions: Allergies Allergy/AdvReac Type Severity Reaction Status Date / Time No Known Allergies Allergy Verified 09/13/18 13:43 - Medications Medications: Current Medications Albuterol/Ipratropium (Duoneb 3 Mg/0.5 Mg (3 Ml) Ud) 3 ml IH Q1H PRN PRN Reason: Shortness of Breath Last Admin: 09/18/18 08:32 Dose: 3 ml Albuterol/Ipratropium (Duoneb 3 Mg/0.5 Mg (3 Ml) Ud) 3 ml IH [id number] [facility] Arformoterol Tartrate (Brovana) 15 mcg IH [id number] [facility] Last Admin: 09/18/18 07:34 Dose: 15 mcg Aspirin (Ecotrin) 81 mg PO DAILY [facility] Last Admin: 09/18/18 09:55 Dose: 81 mg Atorvastatin Calcium (Lipitor) 20 mg PO DIN [facility] Last Admin: 09/17/18 17:05 Dose: 20 mg Budesonide (Pulmicort Respules) 0.5 mg IH [id number] [facility] Last Admin: 09/18/18 07:35 Dose: 0.5 mg Cyclobenzaprine HCl (Flexeril) 5 mg PO BID [facility] Last Admin: 09/18/18 09:56 Dose: 5 mg Doxycycline Hyclate (Doryx) 100 mg PO Q12 [facility]; Protocol Last Admin: 09/18/18 09:55 Dose: 100 mg Enoxaparin Sodium (Lovenox) 30 mg SC DAILY [facility]; Protocol Last Admin: 09/18/18 09:56 Dose: 30 mg Escitalopram Oxalate (Lexapro) 10 mg PO DAILY [facility] Last Admin: 09/18/18 09:55 Dose: 10 mg Famotidine (Pepcid) 20 mg PO 1000,2200 [facility] Last Admin: 09/18/18 09:54 Dose: 20 mg Cefepime HCl (Maxipime 1gm) 1 gm in 100 mls @ 100 mls/hr IVPB Q8 [facility]; Protocol Last Admin: 09/18/18 05:57 Dose: 100 mls/hr Lidocaine HCl (Xylocaine 2% (Uro-Jet)) 1 ea TOP DAILY [facility] Last Admin: 09/18/18 09:58 Dose: 1 ea Methylprednisolone (Solu-Medrol) 40 mg IVP Q8H [facility] Last Admin: 09/18/18 09:57 Dose: 40 mg Metoprolol Tartrate (Lopressor) 50 mg PO BID [facility] Last Admin: 09/18/18 09:55 Dose: 50 mg Montelukast Sodium (Singulair) 10 mg PO HS [facility] Last Admin: 09/17/18 22:48 Dose: 10 mg Oxycodone HCl (Oxycodone Immediate Release Tab) 10 mg PO Q6H PRN PRN Reason: Pain, moderate (4-7) Last Admin: 09/15/18 17:53 Dose: 10 mg Pantoprazole Sodium (Protonix Ec Tab) 40 mg PO 0600 [facility] Last Admin: 09/18/18 05:58 Dose: 40 mg Polyethylene Glycol (Miralax) 17 gm PO BID [facility] Last Admin: 09/18/18 09:56 Dose: 17 gm Pregabalin (Lyrica) 50 mg PO HS [facility] Last Admin: 09/17/18 22:47 Dose: 50 mg Sildenafil Citrate (Revatio) 20 mg PO BID [facility] Last Admin: 09/18/18 09:55 Dose: 20 mg Silver Sulfadiazine (Silvadene 1% 25 Gm) 0 gm TP DAILY [facility] Last Admin: 09/17/18 10:59 Dose: 25 gm Physical Exam - Constitutional Appears: Chronically Ill - Eye Exam Eye Exam: Normal appearance, PERRL - ENT Exam ENT Exam: Mucous Membranes Moist - Respiratory Exam Respiratory Exam: Decreased Breath Sounds, Rhonchi, Wheezes - Cardiovascular Exam Cardiovascular Exam: +S1, +S2 - GI/Abdominal Exam GI & Abdominal Exam: Normal Bowel Sounds, Soft - Extremities Exam Additional comments: right heel wound,healing ecchymotic areas both knees - Back Exam Back exam: vertebral tenderness Additional comments: sacral decubiti - Skin Skin Exam: Dry, Pallor - Additional Findings Additional findings: palliative performance scale rating 30 % Results - Vital Signs Recent Vital Signs: Last Vital Signs Temp 97.8 F 09/18/18 06:00 Pulse 65 09/18/18 09:55 Resp 18 09/18/18 06:00 BP 128/72 09/18/18 09:55 Pulse Ox 96 09/18/18 06:00 - Labs Result Diagrams: 09/19/18 06:30 09/19/18 06:30 Labs: Laboratory Results - last 24 hr 09/17/18 09/18/18 09/18/18 12:25 07:00 07:00 WBC 7.0 RBC 2.84 L Hgb 8.6 L Hct 26.3 L MCV 92.6 MCH 30.3 MCHC 32.7 RDW 16.7 H Plt Count 219 MPV 9.5 Neut % (Auto) 96.0 H Lymph % (Auto) 2.3 L Mercer % (Auto) 1.7 Eos % (Auto) 0.0 L Baso % (Auto) 0.0 Lymph # (Auto) 0.2 L Mercer # (Auto) 0.1 Eos # (Auto) 0.0 Baso # (Auto) 0.00 Absolute Neuts (auto) 6.73 H Neutrophils % (Manual) 92 H Band Neutrophils % 1 Lymphocytes % (Manual) 5 L Monocytes % (Manual) 2 Platelet Evaluation Normal Sodium 133 Potassium 3.8 Chloride 102 Carbon Dioxide 22 Anion Gap 12 BUN 52 H Creatinine 3.3 H Est GFR ( Amer) 16 Est GFR (Non-Af Amer) 14 Random Glucose 107 Calcium 8.8 Total Bilirubin 0.5 AST 69 H ALT 40 Alkaline Phosphatase 70 NT-Pro-B Natriuret Pep 31540 H Total Protein 4.8 L Albumin 2.3 L Globulin 2.5 Albumin/Globulin Ratio 1.0 L Assessment & Plan - Assessment and Plan (Free Text) Assessment: 78 year old female with history of COPD, emphysema, CAD, CKD, breast cancer, T5/ T7 fractures s/p kyphoplasty who is admitted with advanced COPD, pneumonia, pulmonary hypertension, shortness of breath, failure to thrive,AMS sacral decubiti and right heel ulcer with gram negative staph. The patient is alert, confused. Shortness of breath. Appetite poor. Patient's daughter at bedside. Family has been updated of patient's condition by the medical team. Family aware that prognosis is guarded. I explained that patient's condition was not improving despite medical interventions. Family states that patient's over all health has been declining since her previous admission last month. Goals of care discussed at length. Family state they does not want aggressive resuscitation and are in agreement that patient should be DNR/DNI. Patient has 4 daughters, it was agreed that daughter Brittany David ([phone]) would be family spokesperson/emergency contact for patient. Family understands that patient may not rebound from current situation. Family indicated they do not want patient to "suffer". Option for comfort care offered. Family will give things few more days to see how patient does. Psychosocial support provided. Time spent with family in goals of care and advance care planning, 50 minutes Plan: Goals of care and advance care planning.DNR/DNI ID notes reviewed. Continue Vancomycin,Cefepime and Doxycycline, Solumedrol. Pulmonary notes reviewed.Continue Brovana, Duonebs,Pulmicort. Renal consult pending> Lasix on hold. Wound care Continue DVT prophylaxis Continue GI prophylaxis Dietary referral
[2018-09-18 13:29] LABS: URINE BILIRUBIN NEGATIVE (NEGATIVE); URINE BLOOD TRACE-LYSED (NEGATIVE); URINE GLUCOSE (UA) NEGATIVE (NEGATIVE); URINE LEUKOCYTE ESTERASE TRACE Leu/uL (NEGATIVE); URINE PROTEIN NEGATIVE mg/dL (<30 mg/dL); URINE UROBILINOGEN 0.2 E.U./dL (<1 E.U./dL)
[2018-09-18 13:30] LABS: URINE APPEARANCE SL CLOUDY (CLEAR); URINE COLOR YELLOW (YELLOW)
[2018-09-18 13:49] LABS: URINE BACTERIA SMALL /hpf; URINE RBC 0 - 2 /hpf (0-2)
--- NOTE | 2018-09-18 14:39 | CP.PCM.PN ---
Subjective - Date & Time of Evaluation Date of Evaluation: 09/18/18 Time of Evaluation: 09:20 - Subjective Subjective: Not in distress, afebrile. Objective - Vital Signs/Intake and Output Vital Signs (last 24 hours): Temp Pulse Resp BP Pulse Ox 98.3 F 62 18 114/64 96 09/17/18 06:00 09/17/18 06:00 09/17/18 06:00 09/17/18 06:00 09/17/18 06:00 Intake and Output: 09/17/18 09/17/18 06:59 18:59 Intake Total 650 Balance 650 - Medications Medications: Current Medications Albuterol/Ipratropium (Duoneb 3 Mg/0.5 Mg (3 Ml) Ud) 3 ml IH [id number] [facility] Last Admin: 09/17/18 09:19 Dose: 3 ml Arformoterol Tartrate (Brovana) 15 mcg IH [id number] [facility] Last Admin: 09/17/18 09:19 Dose: 15 mcg Aspirin (Ecotrin) 81 mg PO DAILY [facility] Last Admin: 09/16/18 10:02 Dose: 81 mg Atorvastatin Calcium (Lipitor) 20 mg PO DIN [facility] Last Admin: 09/16/18 17:30 Dose: 20 mg Budesonide (Pulmicort Respules) 0.5 mg IH [id number] [facility] Last Admin: 09/17/18 09:20 Dose: 0.5 mg Cyclobenzaprine HCl (Flexeril) 5 mg PO BID [facility] Last Admin: 09/16/18 17:31 Dose: 5 mg Doxycycline Hyclate (Doryx) 100 mg PO Q12 [facility]; Protocol Last Admin: 09/16/18 22:08 Dose: 100 mg Escitalopram Oxalate (Lexapro) 10 mg PO DAILY [facility] Last Admin: 09/16/18 10:01 Dose: 10 mg Famotidine (Pepcid) 20 mg PO 1000,2200 [facility] Last Admin: 09/16/18 22:09 Dose: 20 mg Cefepime HCl (Maxipime 1gm) 1 gm in 100 mls @ 100 mls/hr IVPB Q8 [facility]; Protocol Last Admin: 09/17/18 05:54 Dose: 100 mls/hr Lidocaine HCl (Xylocaine 2% (Uro-Jet)) 1 ea TOP DAILY [facility] Last Admin: 09/16/18 10:03 Dose: Not Given Methylprednisolone (Solu-Medrol) 40 mg IVP Q6 [facility] Metoprolol Tartrate (Lopressor) 50 mg PO BID [facility] Last Admin: 09/16/18 17:31 Dose: 50 mg Montelukast Sodium (Singulair) 10 mg PO HS [facility] Last Admin: 09/16/18 22:09 Dose: 10 mg Oxycodone HCl (Oxycodone Immediate Release Tab) 10 mg PO Q6H PRN PRN Reason: Pain, moderate (4-7) Last Admin: 09/15/18 17:53 Dose: 10 mg Pantoprazole Sodium (Protonix Ec Tab) 40 mg PO 0600 [facility] Last Admin: 09/17/18 05:54 Dose: 40 mg Polyethylene Glycol (Miralax) 17 gm PO BID [facility] Last Admin: 09/16/18 17:30 Dose: 17 gm Pregabalin (Lyrica) 50 mg PO HS [facility] Last Admin: 09/16/18 22:09 Dose: 50 mg Sildenafil Citrate (Revatio) 20 mg PO BID [facility] Last Admin: 09/16/18 17:31 Dose: 20 mg Silver Sulfadiazine (Silvadene 1% 25 Gm) 0 gm TP DAILY [facility] Last Admin: 09/16/18 10:03 Dose: Not Given - Labs Labs: 09/16/18 07:45 09/16/18 07:45 - Constitutional Appears: Chronically Ill - Head Exam Head Exam: NORMAL INSPECTION - Respiratory Exam Respiratory Exam: Decreased Breath Sounds - Cardiovascular Exam Cardiovascular Exam: +S1, +S2 - GI/Abdominal Exam GI & Abdominal Exam: Soft. absent: Tenderness Assessment and Plan - Assessment and Plan (Free Text) Plan: Assessment consider right sided healthcare-associated pneumonia S/P UTI with E. coli, uncomplicated. probably cystitis thoracic vertebral compression fractures S/P kyphoplasty COPD chronic renal failure pulmonary HTN PVD GERD Plan continue Vancomycin and Cefepime and Doxycycline day 5; PCT is only 0.24, urine Legionella Ag is negative will continue to monitor clinically target 4-7 days of antibiotics
--- NOTE | 2018-09-18 16:06 | PN ---
DATE: 09/18/2018 SUBJECTIVE: The patient is 78-year-old. The patient of Dr. Phillips, was admitted because of worsening respiratory status and worsening sacral decubitus. The patient was admitted and started on IV antibiotics, nebulizer treatment, IV steroids. The patient had episode desaturation last night was given extra steroid along with Lasix. Her kidney function seems to be getting worse, so Dr. Welsh and Dr. Paul has been consulted. PHYSICAL EXAMINATION: GENERAL: The patient is short of breath. VITAL SIGNS: The patient is afebrile, pulse 65, respirations 18, and blood pressure 128/72. LUNGS: Bilateral soft crackles in upper lung region. HEART: S1 and S2 audible. ABDOMEN: Soft and nontender. No rebound. No guarding. NEUROLOGIC: She is somewhat confused and disoriented. Does have generalized weakness. EXTREMITIES: Both feet are in the dressing. She has sacral decubitus stage III. LABORATORY DATA: WBC 7.0, hemoglobin 8.6, hematocrit 26.3, and platelets 219. Chemistry; sodium 133, potassium 3.8, chloride 102, CO2 of 22, BUN 52, and creatinine 3.3. Right foot wound coag-negative Staph. Blood cultures are negative. ASSESSMENT: 1. Chronic obstructive pulmonary disease excerebration. 2. Bilateral heel ulcer. 3. Bilateral pneumonia. 4. Acute renal failure. PLAN: We will continue on IV antibiotics. Continue on steroid. The patient is going to be on receiving IV steroids. She is on cefepime. She is on doxycycline. We will continue that. We will monitor her CBC, electrolyte, and continue current medications. Charla Inman MD
--- NOTE | 2018-09-18 16:27 | PQF ---
PROVIDER RESPONSE TEXT: Provider was unable to determine a response for this query. REVIEWER QUERY TEXT: Rule Out Condition Clarification Pt has documented __heel ulcer noted as ?rule out? or similar terminology such as suspected, probable, etc. Please clarify status of this condition: - Patient has condition - Condition was ruled out Please provide corresponding diagnosis for patient's clinical picture and associated treatment - Patient had condition which is now resolved - Other (please specify) heel ulcer present - Clinically unable to determine - Unknown The patient's Clinical Indicators include: Patient admitted with failure to thrive, worsening ulcers lower back area. CXR on admission shows patchy airspace disease RUL (developing pneumonia not excluded). ID notes right sided HCAP and started vanco and cefepime. However, pulmonary technical healthcare consultant noted patient was afebrile, no leukocytosis, negative procalcitonin, and does not see any new findings on CXR. Please clarify if pneumonia is present, ruled out, undetermined. Query created by: Bindu Steele on 09/15/2018 2:18 PM Electronically signed by: Luis Manuel Montoya 09/18/2018 4:24 PM [facility]
--- NOTE | 2018-09-18 18:44 | US ---
Date of service: 09/18/2018 PROCEDURE: Ultrasound of the Kidneys HISTORY: JAJA COMPARISON: Comparison made with prior abdominal ultrasound 03/22/2017. Hello TECHNIQUE: Sonogram of the kidneys. FINDINGS: RIGHT KIDNEY: Measures: 11.6 x 4.8 x 4.1 cm. Normal in size, contour and echogenicity. No stone, solid mass lesion or hydronephrosis visualized. Exophytic cyst seen arising from the upper pole right kidney measuring approximately 4.1 x 3.9 x 3.9 cm. LEFT KIDNEY: Measures: 10.6 x 5.2 x 4.9 cm. Normal in size, contour and echogenicity. No stone, solid mass lesion or hydronephrosis visualized. Small exophytic cyst arising from the upper pole left kidney measuring approximately 2.0 x 1.7 x 1.6 cm OTHER FINDINGS: Small exophytic cyst measuring 1 point none. IMPRESSION: Bilateral renal cysts. No evidence of hydronephrosis. No shadowing obstructing calculi identified.
[2018-09-18] MEDS: Silver Sulfadiazine 1% Cream (25 gm) TP SCH (20:16)
--- NOTE | 2018-09-18 21:05 | CON ---
DATE OF CONSULTATION: 09/18/2018 REASON FOR CONSULTATION: Acute kidney injury. HISTORY OF PRESENTING ILLNESS: A 78-year lady previously unknown to me. The patient was initially admitted on 09/14/2018. She was admitted on 09/13/2018 with complaints of shortness of breath and back pain. She reported difficulty walking. She was discharged 2 days prior to this presentation. She was offered to go to [facility], but she refused. The patient has a history of stage IV lung cancer, severe COPD. The patient was being managed with IV steroids, respiratory treatments, she received a couple of doses of Lasix. At the time of presentation, her creatinine was 0.7. It laverne to 1.5 on 09/15/2018. Today, the creatinine is 3.3. Consultation is requested for acute kidney injury. Currently, the patient is lying in bed. She is groggy, lethargic. Receiving no respiratory treatment. PAST MEDICAL AND SURGICAL HISTORY: Hypertension, CAD, history of CABG, COPD, pneumonia, metastatic breast cancer. FAMILY HISTORY: Noncontributory. SOCIAL HISTORY: Ex-smoker. No alcohol use, no IV drug abuse. MEDICATIONS: Brovana, doxycycline 100 every 12 hours, DuoNeb, Ecotrin, Flexeril, Lexapro, Lipitor 20, Lopressor 50 b.i.d., Lovenox, Lyrica, cefepime 1 g daily started on 09/14/2018, MiraLax, oxycodone, Pepcid, Protonix, Revatio 20 b.i.d., Singulair, Solu-Medrol 40 IV every 8 hours. The patient received Lasix 20 mg on 09/17/2018 and 20 mg on 09/18/2018. She received 40 mg of Lasix the day before that. ALLERGIES: NO KNOWN DRUG ALLERGIES. REVIEW OF SYSTEMS: Unavailable as the patient is very groggy. PHYSICAL EXAMINATION: GENERAL: Elderly lady lying in bed, in [id number] respiratory distress. VITAL SIGNS: Blood pressure 128/72, heart rate 65, respiratory rate 18, temperature 97.8. HEENT: Normocephalic, atraumatic, positive pallor. NECK: Supple, no JVD. LUNGS: Bilateral equal air entry, bilateral rhonchi, distant breath sounds, expiratory wheeze. CARDIAC: S1 and S2, regular rate and rhythm, no murmur, no rub. ABDOMEN: Obese, distended, soft, nontender, bowel sounds present. EXTREMITIES: 1+ pitting edema of the lower extremities. INTAKE AND OUTPUT: 2079/not charted. LABORATORY DATA: WBC 7, hemoglobin 8.6, hematocrit 26, platelets 219,000, polys 96%. Sodium 133, potassium 3.8, chloride 102, CO2 of 22, BUN 52, creatinine 3.3, glucose 107, calcium 8.8 AST 69, ALT 40, albumin 2.3. Urinalysis: Slightly yellow, cloudy, pH 6.0, specific gravity 1.020, protein negative, ketones negative, blood trace light, nitrite negative, leukocyte esterase trace. Urine eosinophils negative. Wound culture from right leg coag-negative staph. Lower extremity MRI: Mild bone marrow edema noted at the mid and distal aspect of the right calcaneus bone. No evidence of cortical erosion or destruction of the right heterogeneous soft tissue edema. Small amount of fluid around the posterior tibialis tendon. ASSESSMENT: 1. Acute kidney injury in the setting of decompensated congestive heart failure, chronic obstructive pulmonary disease exacerbation, IV steroids, IV Lasix, suspect prerenal azotemia secondary to IV steroids and IV Lasix. 2. Stage IV metastatic breast cancer. 3. Severe anemia. 4. Severe chronic obstructive pulmonary disease. 5. Coronary artery disease, coronary artery bypass grafting, congestive heart failure. 6. Infected right lower extremity wound. 7. Acute interstitial nephritis? PLAN: 1. Check urinalysis and urine eosinophils. 2. Restrict usage of Lasix. 3. Taper steroids as feasible. 4. Renal ultrasound. Mayelin Paul MD
--- NOTE | 2018-09-18 21:06 | CON ---
DATE: 09/18/2018 REASON FOR CONSULTATION: Cardiac evaluation, rule out CHF, shortness of breath. BRIEF CLINICAL HISTORY: A 78-year-old female with back pain who was at [facility] brought here by the daughter because of having shortness of breath and cough. PAST MEDICAL HISTORY: Significant for coronary artery disease status post open heart surgery, COPD, degenerative joint disease status post fall, T5 compression fracture, metastatic breast CA, recently discharged from long-term and brought back because of the shortness of breath. PAST SURGICAL HISTORY: Significant for right breast lumpectomy, partial colectomy, and history of open heart surgery with three vessels bypass. PREVIOUS CARDIAC WORKUP FOLLOWS: The patient had right heart catheterization 07/06/2018, that shows RA 3 to 4, RV 27/4, PA 25/10, mean 15, pulmonary capillary wedge pressure 5 to 6 mmHg, cardiac output 2.5, cardiac index 1.4, and pulmonary vascular resistance 6 Fortune unit, though the patient had normal upper limit normal PA pressure, but increased pulmonary vascular resistance at that time. The patient had echocardiography 07/03/2018, that shows ejection fraction 55% to 60%, moderate aortic regurgitation, mild to moderate tricuspid regurgitation, RV systolic 57, trace pulmonary insufficiency, and ejection fraction calculated 55% to 60% dated 07/03/2018. History of CABG in 2012. The patient had cardiac catheterization in 07/2013, LAD critical disease, but unable to open at that time. The patient sent for was open heart surgery. At that time the cardiac catheterization revealed ejection fraction 55% to 60% that is a left heart cath, EDP was 20, calcified coronary, LAD 99% stenosis, diagonal-1, 90% stenosis, RCA 80% stenosis, and the patient went triple-vessel bypass. The patient has stress test dated 11/07/2017, that reveal essentially normal myocardial perfusion study, fixed defect, no reversible ischemia. In comparison with stress test 10/01/2011, no significant change, that stress test 11/07/2017, ejection fraction by stress test 63%. Last echo 03/23/2018, revealed normal wall thickness, ejection fraction within the normal limit, moderate aortic regurgitation, mild pulmonary hypertension, calculated ejection fraction 63%, RV systolic pressure 40. No mitral regurgitation noted. This echo was 03/23/2018. The patient has another echo as mentioned 07/03/2018, that revealed ejection fraction 55% to 60%, mild to moderate mitral regurgitation, moderate aortic regurgitation, mild to moderate tricuspid regurgitation, RV systolic 57. CURRENT MEDICATION: The patient is taking at home prednisone, oxycodone, hydrochlorothiazide, sildenafil, Revatio, Singulair, metoprolol, Pepcid. REVIEW OF SYSTEMS: As per HPI. PHYSICAL EXAMINATION: GENERAL: As follows, height of the patient 5 feet inches, weight of the patient 158 pounds, body mass index 25.5 kg/m2. VITAL SIGNS: Temperature afebrile, heart rate 68, blood pressure 106/48. HEENT: PERRLA. Extraocular muscles intact. NECK: Supple. No carotid bruit or thyromegaly. CHEST: Clear to auscultation. HEART: S1 and S2, regular. ABDOMEN: Soft. EXTREMITIES: Clubbing, cyanosis negative. LABORATORY DATA: Blood workup as follows: WBC 7, hemoglobin 8.0, hematocrit 26.3, platelet count 219. Chemistry shows sodium 133, potassium 3.8, chloride 102, carbon dioxide 22, anion gap of 12, BUN 52, creatinine 3.3. BNP 70134. Chest x-ray moderate vascular congestion noted. The patient had a chest CT done 09/16/2018, that shows severe emphysematous changes noted. IMPRESSION: A 78-year-old female with back problem, severe history of coronary artery disease, history of coronary artery bypass graft 2012. At that time, the cardiac catheterization revealed left anterior descending critical disease, diagonal 1 critical disease, right coronary artery disease, unable to open left anterior descending and sent for open heart surgery. Recent right heart catheterization on 07/06/2013, showed normal upper limit, normal pressure, but pulmonary vascular disease since elevated, pulmonary hypertension, admitted with congestive heart failure. Most recent echo shows preserved left ventricular function, mitral regurgitation, tricuspid regurgitation, aortic Regurgitation, admitted with bilateral pneumonia, congestive heart failure, acute kidney injury, chronic renal insufficiency. RECOMMENDATIONS: Discussed with the daughter in length, suggest continue diuretics, continue metoprolol, continue DVT prophylaxis, we will follow with you. We will give Lasix 40 as blood pressure is tolerated. Overall, the patient is critical. jail prognosis guarded. We will follow with you. 40 of Lasix every day and will give 20 of Lasix now. Discussed with the daughter. Overall the patient condition is critical. jail prognosis is extremely poor. CODE STATUS: DNR. We will give another Lasix 20 now and start 40 from tomorrow. We will give 20 now. Further recommendation will depend on the hospital course. We will follow with you. We will get uric acid level also in the morning. Thank you Dr. Inman for providing us the opportunity in taking care of the patient, Abimbola Ramirez. Bibi Welsh MD
[2018-09-19] MEDS: Albuterol-Ipratrop 3 mg / 0.5 (3 ml) UD IH SCH ×7 (00:35→20:35)
[2018-09-19] MEDS: Pantoprazole 40 mg EC Tab PO SCH (05:47)
[2018-09-19] MEDS: Cefepime 1gm in NS 100ml 1 GM/100 ML BAG IVPB SCH (05:52)
[2018-09-19 06:53] LABS: HEMOGLOBIN 8.2 g/dL (12.0-16.0); LYMPH # 0.2 (1.2-3.4); LYMPH % 1.9 % (22.0-35.0); MEAN CELL VOLUME 93.5 fl (80.0-105.0); MEAN CORPUSCULAR HEMOGLOBIN 29.8 pg (25.0-35.0); MEAN CORPUSCULAR HGB CONC 31.9 g/dl (31.0-37.0); MEAN PLATELET VOLUME 9.8 fl (7.0-11.0); MONO # 0.2 (0.1-0.6); MONO % 1.7 % (1.0-6.0); RBC 2.75 10^6/uL (3.5-6.1); RED CELL DISTRIBUTION WIDTH 16.8 % (11.5-14.5); WHITE BLOOD COUNT 8.7 10^3/uL (4.5-11.0)
[2018-09-19 07:23] LABS: ALBUMIN 2.4 g/dL (3.0-4.8); CALCIUM 8.8 mg/dL (8.4-10.5); URIC ACID 7.3 mg/dL (2.5-6.2)
[2018-09-19] MEDS: MethylPREDNISolone 40 mg Vial IVP SCH ×3 (08:14→22:12)
[2018-09-19] MEDS ORDERED: Mupirocin 2% Ointment 15 GM TUBE NS SCH (10:30)
--- NOTE | 2018-09-19 10:50 | PN ---
DATE: 09/19/2018 SUBJECTIVE: The patient appears more comfortable this morning. She is mildly short of breath, but in no acute distress. She is somewhat lethargic. PHYSICAL EXAMINATION: VITAL SIGNS: Temperature 97.5, pulse 76, respirations 20/22, blood pressure 115/52. Oxygen saturation on nasal cannula is 97%. HEENT: Normocephalic, atraumatic. NECK: No JVD. CARDIOVASCULAR: Systolic ejection murmur at the lower left sternal border. No S3 gallop. LUNGS: Decreased breath sounds at the bases. Less rhonchi. No wheezing this morning. EXTREMITIES: Mild edema. No cyanosis. No clubbing. Calves are nontender to palpation. GI: Abdomen is soft, nontender, nondistended. Bowel sounds are positive. SKIN: Multiple ecchymotic areas on the arms. Multiple sacral decubiti. The right foot remains wrapped. NEUROLOGIC: Exam limited at the present time. IMPRESSION: 1. Failure to thrive. 2. Worsening sacral decubitus. 3. Right foot ulcerations. 4. Advanced chronic obstructive pulmonary disease. 5. Rule out bibasilar pneumonia. 6. Pulmonary hypertension. 7. Breast cancer. 8. Peripheral vascular disease. PLAN: The patient appears comfortable this morning. She is mildly short of breath, but in no acute distress. She is somewhat lethargic. She appears very weak. I did discuss the case with the nurse and daughter (at bedside) at length. The both state that the patient had a better night. On physical exam, there is less bronchospasm noted. In addition, there is less alveolar-arterial gradient. I will continue with the current nebulizer treatments and current intravenous steroids (decreased yesterday) for now. Input by Cardiology (Dr. Welsh) is also noted. An extra dose of Lasix was given. I would continue with the antibiotic coverage as per Infectious Disease. Input by Dr. Levine is noted. Again, there are no temperatures noted. There is no leukocytosis. In addition, procalcitonin done yesterday was negative. Clinical status, the patient does appear improved - compared to a few days ago. However, unfortunately, it does appear that the future status/prognosis for this patient is poor. All are aware. The patient is now a DNR/DNI status. I will discuss the above with the attending physician. Anthony Hameed MD [facility] # [id number] PREMA
[2018-09-19] MEDS ORDERED: Cefepime 1gm in NS 100ml 1 GM/100 ML BAG IVPB SCH (10:55)
[2018-09-19] MEDS: Budesonide 0.5 mg/2 ml Inhal Susp UD IH SCH ×2 (11:12→20:36)
[2018-09-19] MEDS: Arformoterol 15 mcg/2 ml Inh Sol IH SCH ×2 (11:12→20:35)
[2018-09-19] MEDS: Sildenafil 20 MG TAB PO SCH ×2 (11:27→18:01)
[2018-09-19] MEDS: POLYETHYLENE GLYCOL 3350 17 GM/Dose PACKET PO SCH ×2 (11:27→18:01)
[2018-09-19] MEDS: Enoxaparin 30 mg Syringe SC SCH (11:41)
--- NOTE | 2018-09-19 12:30 | CP.PCM.PN ---
<Luis Manuel Montoya - Last Filed: 09/19/18 12:28> Subjective - Date & Time of Evaluation Date of Evaluation: 09/19/18 Time of Evaluation: 12:28 - Subjective Subjective: Podiatry Progress Note: Dr. Denson 78 y/o F patient seen and evaluated at bedside with posterior right heel wound. Patient was sleeping at the time of the visit. Patient is poor historian and her family was at the bed side. As per her chart there was no overnight nausea/vomiting/fever/chest pain. There is no other pedal complaint at this time. Objective - Vital Signs/Intake and Output Vital Signs (last 24 hours): Temp Pulse Resp BP Pulse Ox 97.9 F 67 16 120/60 86 L 09/19/18 06:00 09/19/18 06:00 09/19/18 06:00 09/19/18 11:41 09/19/18 06:00 Intake and Output: 09/19/18 09/19/18 06:59 18:59 Intake Total 120 Output Total 250 300 Balance -130 -300 - Medications Medications: Current Medications Albuterol/Ipratropium (Duoneb 3 Mg/0.5 Mg (3 Ml) Ud) 3 ml IH Q1H PRN PRN Reason: Shortness of Breath Last Admin: 09/18/18 08:32 Dose: 3 ml Albuterol/Ipratropium (Duoneb 3 Mg/0.5 Mg (3 Ml) Ud) 3 ml IH [id number] [facility] Last Admin: 09/19/18 11:12 Dose: 3 ml Arformoterol Tartrate (Brovana) 15 mcg IH [id number] [facility] Last Admin: 09/19/18 11:12 Dose: 15 mcg Aspirin (Ecotrin) 81 mg PO DAILY [facility] Last Admin: 09/19/18 11:25 Dose: Not Given Atorvastatin Calcium (Lipitor) 20 mg PO DIN [facility] Last Admin: 09/18/18 19:06 Dose: 20 mg Budesonide (Pulmicort Respules) 0.5 mg IH [id number] [facility] Last Admin: 09/19/18 11:12 Dose: 0.5 mg Doxycycline Hyclate (Doryx) 100 mg PO Q12 [facility]; Protocol Last Admin: 09/19/18 11:25 Dose: Not Given Enoxaparin Sodium (Lovenox) 30 mg SC DAILY [facility]; Protocol Last Admin: 09/19/18 11:41 Dose: 30 mg Escitalopram Oxalate (Lexapro) 10 mg PO DAILY [facility] Last Admin: 09/19/18 11:26 Dose: Not Given Famotidine (Pepcid) 20 mg PO 1000,2200 [facility] Last Admin: 09/19/18 11:27 Dose: Not Given Furosemide (Lasix) 40 mg IV DAILY [facility] Last Admin: 09/19/18 11:41 Dose: 40 mg Cefepime HCl (Maxipime 1gm) 1 gm in 100 mls @ 100 mls/hr IVPB DAILY [facility]; Protocol Lidocaine HCl (Xylocaine 2% (Uro-Jet)) 1 ea TOP DAILY [facility] Last Admin: 09/18/18 09:58 Dose: 1 ea Methylprednisolone (Solu-Medrol) 40 mg IVP Q8H [facility] Last Admin: 09/19/18 08:14 Dose: 40 mg Metoprolol Tartrate (Lopressor) 50 mg PO BID [facility] Last Admin: 09/19/18 11:27 Dose: Not Given Montelukast Sodium (Singulair) 10 mg PO HS [facility] Last Admin: 09/18/18 22:36 Dose: 10 mg Mupirocin (Bactroban Ointment) 0 gm NS DAILY [facility] Stop: 09/28/18 10:01 Last Admin: 09/19/18 11:25 Dose: Not Given Oxycodone HCl (Oxycodone Immediate Release Tab) 10 mg PO Q6H PRN PRN Reason: Pain, moderate (4-7) Last Admin: 09/15/18 17:53 Dose: 10 mg Pantoprazole Sodium (Protonix Ec Tab) 40 mg PO 0600 [facility] Last Admin: 09/19/18 05:47 Dose: Not Given Polyethylene Glycol (Miralax) 17 gm PO BID [facility] Last Admin: 09/19/18 11:27 Dose: Not Given Pregabalin (Lyrica) 50 mg PO HS [facility] Last Admin: 09/18/18 22:36 Dose: 50 mg Sildenafil Citrate (Revatio) 20 mg PO BID [facility] Last Admin: 09/19/18 11:27 Dose: Not Given Silver Sulfadiazine (Silvadene 1% 25 Gm) 0 gm TP DAILY [facility] Last Admin: 09/18/18 20:16 Dose: Not Given - Labs Labs: 09/19/18 06:30 09/19/18 06:30 - Constitutional Appears: Non-toxic - Head Exam Head Exam: ATRAUMATIC - Extremities Exam Additional comments: RLE focused exam: Vasc: DP/PT pulses fully palpable 2/4 b/l. Skin temperature gradient warm to war m from proximal to distal. Cap refill < 3 seconds to all digits b/l. No edema noted b/l Neuro: Gross and protective sensation grossly intact b/l. Derm: Posterior right heel ulceration measuring 2.3 cm X 1.7 cm with 10% fibrotic and 90% granular base, superficial, negative probe to bone, positive p joseph-wound erythema, positive mild sero-sanguinous drainage, No other open lesions, wounds, maceration, xerosis, abnormal pigmentation or abnormal growths noted b/l. MSK: No Pain with palpation of periulcerative site. B/l HAV deformities noted. No other gross deformities noted. ROM WNL to all major joints b/l. MMT 5/5 in all major muscle groups b/l. Assessment and Plan - Assessment and Plan (Free Text) Assessment: 78 y/o F patient with posterior right heel ulceration; stable Plan: Patient seen and evaluated Discussed with attending Dr. Denson Charts, labs and vitals reviewed; Afebrile,absent leukocytosis Wound Culture: Coag neg staph Right Heel X-ray: no signs of osteo R MRI; bone marrow edema in calcaneus without evidence of cortical destruction or erosion likely represent bone marrow reaction, possibility of OM less likely Right heel wound cleaned with saline, and dressed with adaptic, maxorb, DSD Patient to wear Multipodus boots at all times while in bed ID consulted; per ID reccs continue Vancomycin and Cefepime and Doxycycline day 4; PCT is only 0.24, urine Legionella Ag is negative, will continue to monitor clinically, target 4-7 days of antibiotics Podiatry will continue to follow up patient while in house <Angel Denson - Last Filed: 09/20/18 07:11> Objective - Vital Signs/Intake and Output Vital Signs (last 24 hours): Temp Pulse Resp BP Pulse Ox 98.3 F 70 14 151/64 H 95 09/20/18 06:00 09/20/18 06:00 09/20/18 06:00 09/20/18 06:00 09/20/18 06:00 Intake and Output: 09/20/18 09/20/18 06:59 18:59 Output Total 150 Balance -150 - Medications Medications: Current Medications Albuterol/Ipratropium (Duoneb 3 Mg/0.5 Mg (3 Ml) Ud) 3 ml IH Q1H PRN PRN Reason: Shortness of Breath Last Admin: 09/18/18 08:32 Dose: 3 ml Albuterol/Ipratropium (Duoneb 3 Mg/0.5 Mg (3 Ml) Ud) 3 ml IH [id number] [facility]OR[facility] Last Admin: 09/19/18 20:35 Dose: 3 ml Arformoterol Tartrate (Brovana) 15 mcg IH [id number] [facility] Last Admin: 09/19/18 20:35 Dose: 15 mcg Aspirin (Ecotrin) 81 mg PO DAILY [facility] Last Admin: 09/19/18 11:25 Dose: Not Given Atorvastatin Calcium (Lipitor) 20 mg PO DIN [facility] Last Admin: 09/19/18 18:01 Dose: Not Given Budesonide (Pulmicort Respules) 0.5 mg IH [id number] [facility] Last Admin: 09/19/18 20:36 Dose: 0.5 mg Doxycycline Hyclate (Doryx) 100 mg PO Q12 [facility]; Protocol Last Admin: 09/19/18 21:03 Dose: Not Given Enoxaparin Sodium (Lovenox) 30 mg SC DAILY [facility]; Protocol Last Admin: 09/19/18 11:41 Dose: 30 mg Escitalopram Oxalate (Lexapro) 10 mg PO DAILY [facility] Last Admin: 09/19/18 11:26 Dose: Not Given Famotidine (Pepcid) 20 mg PO 1000,2200 [facility] Last Admin: 09/19/18 21:03 Dose: Not Given Furosemide (Lasix) 40 mg IV DAILY [facility] Last Admin: 09/19/18 11:41 Dose: 40 mg Meropenem 250 mg/ Sodium (Chloride) 100 mls @ 100 mls/hr IVPB Q12H [facility]; Protocol Stop: 09/27/18 06:16 Vancomycin HCl (Vancomycin 1gm) 1 gm in 250 mls @ 167 mls/hr IVPB STAT STA; Protocol Stop: 09/20/18 07:44 Lidocaine HCl (Xylocaine 2% (Uro-Jet)) 1 ea TOP DAILY [facility] Last Admin: 09/19/18 15:34 Dose: Not Given Methylprednisolone (Solu-Medrol) 40 mg IVP Q8H [facility] Last Admin: 09/19/18 22:12 Dose: 40 mg Metoprolol Tartrate (Lopressor) 50 mg PO BID [facility] Last Admin: 09/19/18 18:01 Dose: Not Given Montelukast Sodium (Singulair) 10 mg PO HS [facility] Last Admin: 09/19/18 21:04 Dose: Not Given Mupirocin (Bactroban Ointment) 0 gm NS DAILY [facility] Stop: 09/28/18 10:01 Last Admin: 09/19/18 11:25 Dose: Not Given Oxycodone HCl (Oxycodone Immediate Release Tab) 10 mg PO Q6H PRN PRN Reason: Pain, moderate (4-7) Last Admin: 09/15/18 17:53 Dose: 10 mg Pantoprazole Sodium (Protonix Ec Tab) 40 mg PO 0600 [facility] Last Admin: 09/19/18 05:47 Dose: Not Given Polyethylene Glycol (Miralax) 17 gm PO BID [facility] Last Admin: 09/19/18 18:01 Dose: Not Given Pregabalin (Lyrica) 50 mg PO HS [facility] Last Admin: 09/19/18 21:03 Dose: Not Given Sildenafil Citrate (Revatio) 20 mg PO BID [facility] Last Admin: 09/19/18 18:01 Dose: Not Given Silver Sulfadiazine (Silvadene 1% 25 Gm) 0 gm TP DAILY [facility] Last Admin: 09/19/18 14:43 Dose: Not Given - Labs Labs: 09/19/18 06:30 09/19/18 06:30 Attending/Attestation - Attestation I have personally seen and examined this patient.: Yes I have fully participated in the care of the patient.: Yes I have reviewed all pertinent clinical information, including history, physical exam and plan: Yes
--- NOTE | 2018-09-19 12:31 | PQF ---
PROVIDER RESPONSE TEXT: Provider was unable to determine a response for this query. REVIEWER QUERY TEXT: Kidney Disease, Chronic CKD Stage Chronic Kidney Disease (CKD) is documented in the Medical Record. Please specify the disease stage (includes probable or suspected) Such as: -- Chronic kidney disease Stage 1 -- Chronic kidney disease Stage 2 -- Chronic kidney disease Stage 3 -- Chronic kidney disease Stage 4- -- Chronic kidney disease Stage 5 -- Chronic kidney disease Stage 5, requiring dialysis -- End Stage Renal Disease -- Other, please specify Stages are defined by the [employer] as follows: CKD Stage I GFR >= 90 ml / min per 1.73 m2 and persistent albuminuria CKD Stage 2 GFR between 60 and 89 with persistent albuminuria CKD Stage 3 GFR between 30 and 59 CKD Stage 4 GFR between 15 and 29 CKD Stage 5 GFR between <15 or End Stage Renal Disease The patient's Clinical Indicators include: Patient noted to have hx CKD. Please specify stage of CKD present in this patient. Query created by: Bindu Steele on 09/19/2018 7:07 AM Electronically signed by: Luis Manuel Montoya 09/19/2018 12:28 PM She has Chronic kidney disease Stage 4 MTDD
[2018-09-19] MEDS: Silver Sulfadiazine 1% Cream (25 gm) TP SCH (14:43)
--- NOTE | 2018-09-19 14:50 | PN ---
DATE: 09/19/2018 SUBJECTIVE: The patient is 78-year-old, seen and examined, lying in bed. Mild shortness of breath. No nausea or vomiting. Oral intake is very poor, looks pale. PHYSICAL EXAMINATION: VITAL SIGNS: She is afebrile. Pulse 67, respiration 16 and blood pressure 120/60. LUNGS: Bilateral soft crackle. posteriorly. HEART: S1 and S2, audible. ABDOMEN: Soft and nontender. No rebound. No guarding. EXTREMITIES: She has sacral decubitus. She has decubitus ulcer on both heels. LABORATORY DATA: WBC is 8.7, hemoglobin 8.2, hematocrit 25.7 and platelet 225. Chemistry; sodium 135, potassium 3.9, chloride 105, CO2 of 22, BUN 63, creatinine 4.1 and blood sugar of 133. [place] [address]. Renal sonogram is negative. ASSESSMENT: 1. Bilateral pneumonia. 2. Chronic obstructive pulmonary disease. 3. History of chronic renal failure. 4. History of cancer of breast. 5. Anemia. PLAN: Currently, the patient is on nebulizer treatment. Wound care is being done. She is on Brovana. She is on doxycycline. She is on aspirin 81 mg daily. She is on intermittent IV Lasix. Continue her on Statins, metoprolol. She is on DVT prophylaxis. She is on Cefepime. Continue her on Protonix. She is on IV steroids 40 mg every 8 hours we will continue that. Discussed with the patient's family who is at the bedside. We will reevaluate in a.m. Charla Inman MD
[2018-09-19] MEDS: Lidocaine 2% Jelly (Uro-Jet) TOP SCH (15:34)
--- NOTE | 2018-09-19 15:50 | CP.PCM.PCO ---
Physician Communication Note - Physician Communication Note Physician Communication Note: o2 sat 86%,on 4 liters,per palliat care,awaiting daughter cristobal,for [email or web address]
[2018-09-19 16:03] LABS: ARTERIAL BLOOD GAS HCO3 17.2 mmol/L (21-28); ARTERIAL BLOOD GAS O2 SAT 98.6 % (95-98); ARTERIAL BLOOD GAS PCO2 29 mm/Hg (35-45); ARTERIAL BLOOD GAS PH 7.38 (7.35-7.45); ARTERIAL BLOOD GAS TCO2 18.1 mmol.L (22-28)
--- NOTE | 2018-09-19 16:24 | PN ---
DATE: 09/19/2018 REASON FOR CONSULTATION AND FOLLOWUP: Cardiac evaluation, rule out CHF, shortness of breath. SUBJECTIVE: Both daughter is at the bedside. Denies any chest pain, shortness of breath, or any palpitation. Though complaint of shortness of breath. PHYSICAL EXAMINATION VITAL SIGNS: Temperature is afebrile. Heart rate , blood pressure 126/61. HEENT: PERRLA. Extraocular muscles intact. NECK: Supple. No carotid bruit or thyromegaly. CHEST: Clear to auscultation. HEART: S1 and S2, regular. ABDOMEN: Soft. EXTREMITIES: Clubbing and cyanosis negative. LABORATORY DATA: WBC 8.3, hemoglobin 8.2, hematocrit 25.7, platelet count 225. Chemistry shows sodium 135, potassium 3.9, chloride 105, carbon dioxide 22, anion gap of 11, BUN 16, creatinine 4.1, BNP 70,600. IMPRESSION: A 78-year-old female with past medical history significant for coronary artery disease, status coronary artery bypass graft in 2012, after the cardiac catheterization that revealed critical disease in diagonal 1 and left anterior descending and right coronary artery disease. Recently the patient right heart catheterization done that shows upper limit with normal right heart pressure with pulmonary vascular resistance was evaluated. The patient is being treated with pulmonary hypertension, admitted from the group home because the patient had shortness of breath, elevated BNP worsening renal insufficiency, acute kidney injury and chronic renal insufficiency. Discussed with the daughter. Overall, the patient is critical. penitentiary prognosis guarded. RECOMMENDATION: Continue gentle diuretics, keep negative fluid balance, monitor electrolytes closely, monitor renal function closely, avoid hypotension, avoid nephrotoxic medication. Continue gentle diuretics, continue beta-etta. Overall, the patient is critical. Long-term prognosis is guarded. We will follow with you. The patient has recent echo done dated 07/03/2018 that shows ejection fraction 50% to 60% with moderate aortic regurgitation, mild to moderate tricuspid regurgitation, RV systolic pressure 57, trace pulmonary insufficiency, ejection fraction reported 55% to 60%, dated 07/03/2018. CODE STATUS: DNR AND DNI. Thank you Dr. Inman for providing us the opportunity in taking care of the patient, James Ambriztte. Bibi Welsh MD [facility] # [id number]
--- NOTE | 2018-09-19 16:54 | CP.PCM.PN ---
Subjective - Date & Time of Evaluation Date of Evaluation: 09/19/18 Time of Evaluation: 13:00 - Subjective Subjective: Accessory muscle use, breathing labored. Objective - Vital Signs/Intake and Output Vital Signs (last 24 hours): Temp Pulse Resp BP Pulse Ox 98.6 F 81 22 141/65 90 L 09/19/18 14:00 09/19/18 16:37 09/19/18 14:00 09/19/18 14:00 09/19/18 14:00 Intake and Output: 09/19/18 09/19/18 06:59 18:59 Intake Total 120 Output Total 250 300 Balance -130 -300 - Medications Medications: Current Medications Albuterol/Ipratropium (Duoneb 3 Mg/0.5 Mg (3 Ml) Ud) 3 ml IH Q1H PRN PRN Reason: Shortness of Breath Last Admin: 09/18/18 08:32 Dose: 3 ml Albuterol/Ipratropium (Duoneb 3 Mg/0.5 Mg (3 Ml) Ud) 3 ml IH [id number] [facility] Last Admin: 09/19/18 15:54 Dose: 3 ml Arformoterol Tartrate (Brovana) 15 mcg IH [id number] [facility] Last Admin: 09/19/18 11:12 Dose: 15 mcg Aspirin (Ecotrin) 81 mg PO DAILY [facility] Last Admin: 09/19/18 11:25 Dose: Not Given Atorvastatin Calcium (Lipitor) 20 mg PO DIN [facility] Last Admin: 09/18/18 19:06 Dose: 20 mg Budesonide (Pulmicort Respules) 0.5 mg IH [id number] [facility] Last Admin: 09/19/18 11:12 Dose: 0.5 mg Doxycycline Hyclate (Doryx) 100 mg PO Q12 [facility]; Protocol Last Admin: 09/19/18 11:25 Dose: Not Given Enoxaparin Sodium (Lovenox) 30 mg SC DAILY [facility]; Protocol Last Admin: 09/19/18 11:41 Dose: 30 mg Escitalopram Oxalate (Lexapro) 10 mg PO DAILY [facility] Last Admin: 09/19/18 11:26 Dose: Not Given Famotidine (Pepcid) 20 mg PO 1000,2200 [facility] Last Admin: 09/19/18 11:27 Dose: Not Given Furosemide (Lasix) 40 mg IV DAILY [facility] Last Admin: 09/19/18 11:41 Dose: 40 mg Cefepime HCl (Maxipime 1gm) 1 gm in 100 mls @ 100 mls/hr IVPB DAILY [facility]; Protocol Lidocaine HCl (Xylocaine 2% (Uro-Jet)) 1 ea TOP DAILY [facility] Last Admin: 09/19/18 15:34 Dose: Not Given Methylprednisolone (Solu-Medrol) 40 mg IVP Q8H [facility] Last Admin: 09/19/18 15:34 Dose: 40 mg Metoprolol Tartrate (Lopressor) 50 mg PO BID [facility] Last Admin: 09/19/18 11:27 Dose: Not Given Montelukast Sodium (Singulair) 10 mg PO HS [facility] Last Admin: 09/18/18 22:36 Dose: 10 mg Mupirocin (Bactroban Ointment) 0 gm NS DAILY [facility] Stop: 09/28/18 10:01 Last Admin: 09/19/18 11:25 Dose: Not Given Oxycodone HCl (Oxycodone Immediate Release Tab) 10 mg PO Q6H PRN PRN Reason: Pain, moderate (4-7) Last Admin: 09/15/18 17:53 Dose: 10 mg Pantoprazole Sodium (Protonix Ec Tab) 40 mg PO 0600 [facility] Last Admin: 09/19/18 05:47 Dose: Not Given Polyethylene Glycol (Miralax) 17 gm PO BID [facility] Last Admin: 09/19/18 11:27 Dose: Not Given Pregabalin (Lyrica) 50 mg PO [facility] Last Admin: 09/18/18 22:36 Dose: 50 mg Sildenafil Citrate (Revatio) 20 mg PO BID [facility] Last Admin: 09/19/18 11:27 Dose: Not Given Silver Sulfadiazine (Silvadene 1% 25 Gm) 0 gm TP DAILY [facility] Last Admin: 09/19/18 14:43 Dose: Not Given - Labs Labs: 09/19/18 06:30 09/19/18 06:30 - Constitutional Appears: Chronically Ill - Eye Exam Eye Exam: Normal appearance, PERRL - ENT Exam ENT Exam: Mucous Membranes Moist - Respiratory Exam Respiratory Exam: Accessory Muscle Use, Decreased Breath Sounds, Rales, Rhonchi - Cardiovascular Exam Cardiovascular Exam: Tachycardia, +S1, +S2 - GI/Abdominal Exam GI & Abdominal Exam: Soft, Hypoactive Bowel Sounds - Extremities Exam Extremities Exam: Pedal Edema - Back Exam Additional comments: sacral ulcer - Skin Skin Exam: Dry, Pallor Assessment and Plan - Assessment and Plan (Free Text) Assessment: 78 year old female with history of advanced COPD, CAD, pulmonary hypertension,sacral ulcer,foot ulcer, compression fractures who is admitted with COPD, JAJA, sacral ulcer,foot ulcer,failure to thrive. I met with family this morning. Explained that over all, patient's condition was not improved. Goals of care discussed at length. Hospice services explained. Family conflicted not all are ready. Family wants to give things a few more days. Time spent with family 45 minutes I visited patient later in the day. Breathing more labored, accessory muscle use, tachycardic. Plan: Goals of care As discussed with Dr Hameed, will trial Bipap.Continue Duonebs, Pulmicort, Brovana, Solumedrol Continue Doxycyline,Cefepime
--- NOTE | 2018-09-19 18:44 | CP.PCM.CON ---
History of Present Illness - History of Present Illness History of Present Illness: MICU CONSULT NOTE HPI Patient is 78yo female with PMhx of end stage COPD, Pulm HTN, CAD s/p CABG, breast Ca on Chemo/radiation, bed sores, admitted to the hospital with back pain,shortness of breath,right heel wound,sacral decubiti and difficulty ambulating. Patient condition worsened progressed to multi organ failure, worsening renal function, PNA, respiratory failure with hypoxia requiring BIPAP. Pt's family, including sister, Riya, and common law at bedside, Mik. Patient was made DNR today, but then family rescinded the decision. Pt is currently lethargic but arousable to verbal stimuli, follows simple commands, co mfortable on BIPAP PMHx as above PSHx as above Meds as per EMR FHx NC Social former smoker, (-)EtOH, drug use ROS as above Allergies NKDA Review of Systems - Review of Systems Review of Systems: as per HPI Past Patient History - Infectious Disease Hx of Infectious Diseases: None - Past Social History Smoking Status: Never Smoked - CARDIAC Hx Cardiac Disorders: Yes (CAD) Hx Congestive Heart Failure: Yes Hx Hypercholesterolemia: Yes Hx Hypertension: Yes - PULMONARY Hx Chronic Obstructive Pulmonary Disease (COPD): Yes - NEUROLOGICAL Hx Neurological Disorder: No Other/Comment: peripheral neuropathy - HEENT Hx HEENT Problems: Yes (reading glasses) Hx Cataracts: Yes (cataract sx b/l lens implant age 52) - RENAL Hx Chronic Kidney Disease: No - ENDOCRINE/METABOLIC Hx Endocrine Disorders: No - HEMATOLOGICAL/ONCOLOGICAL Hx Blood Transfusions: No Hx Blood Transfusion Reaction: No - INTEGUMENTARY Other/Comment: b/l arms multiple eccymotic areas "I bruise easily.", fell about a month ago slipped on a towel on the floor dry scab left knee surrounding skin red, fading bruises both knees from "crawling on floor when I fell", bruises both arms, redness to bottom of both feet, dry skin, redness tp sides of toes 4 & 5 both feet, redness to b/l bunyons, crooked great toes both feet, ble +1 pitting edema, red coccyx - MUSCULOSKELETAL/RHEUMATOLOGICAL Hx Arthritis: Yes - GASTROINTESTINAL Hx Gastrointestinal Disorders: Yes (reflux/colon polyp) - GENITOURINARY/GYNECOLOGICAL Hx Genitourinary Disorders: No Hx Reproductive Disorders: Yes (hyst/r breast lumpectomy) - PSYCHIATRIC Hx Psychophysiologic Disorder: Yes Hx Anxiety: Yes Hx Depression: No Hx Emotional Abuse: No Hx Physical Abuse: No Hx Substance Use: No - SURGICAL HISTORY Other/Comment: R breast bx 10/26/17, right external jugular venous port 04/24/18 dr carlyle albrecht, 03/02/18 lap and 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 results as per pt, done by dr ahsan dubose - ANESTHESIA Hx Anesthesia Reactions: No Hx Malignant Hyperthermia: No Meds Allergies/Adverse Reactions: Allergies Allergy/AdvReac Type Severity Reaction Status Date / Time No Known Allergies Allergy Verified 09/13/18 13:43 - Medications Medications: Current Medications Albuterol/Ipratropium (Duoneb 3 Mg/0.5 Mg (3 Ml) Ud) 3 ml IH Q1H PRN PRN Reason: Shortness of Breath Last Admin: 09/18/18 08:32 Dose: 3 ml Albuterol/Ipratropium (Duoneb 3 Mg/0.5 Mg (3 Ml) Ud) 3 ml IH [id number] [facility] Last Admin: 09/19/18 15:54 Dose: 3 ml Arformoterol Tartrate (Brovana) 15 mcg IH [id number] [facility] Last Admin: 09/19/18 11:12 Dose: 15 mcg Aspirin (Ecotrin) 81 mg PO DAILY [facility] Last Admin: 09/19/18 11:25 Dose: Not Given Atorvastatin Calcium (Lipitor) 20 mg PO DIN [facility] Last Admin: 09/19/18 18:01 Dose: Not Given Budesonide (Pulmicort Respules) 0.5 mg IH [id number] [facility] Last Admin: 09/19/18 11:12 Dose: 0.5 mg Doxycycline Hyclate (Doryx) 100 mg PO Q12 [facility]; Protocol Last Admin: 09/19/18 11:25 Dose: Not Given Enoxaparin Sodium (Lovenox) 30 mg SC DAILY [facility]; Protocol Last Admin: 09/19/18 11:41 Dose: 30 mg Escitalopram Oxalate (Lexapro) 10 mg PO DAILY [facility] Last Admin: 09/19/18 11:26 Dose: Not Given Famotidine (Pepcid) 20 mg PO 1000,2200 [facility] Last Admin: 09/19/18 11:27 Dose: Not Given Furosemide (Lasix) 40 mg IV DAILY [facility] Last Admin: 09/19/18 11:41 Dose: 40 mg Cefepime HCl (Maxipime 1gm) 1 gm in 100 mls @ 100 mls/hr IVPB DAILY [facility]; Pro tocol Lidocaine HCl (Xylocaine 2% (Uro-Jet)) 1 ea TOP DAILY [facility] Last Admin: 09/19/18 15:34 Dose: Not Given Methylprednisolone (Solu-Medrol) 40 mg IVP Q8H [facility] Last Admin: 09/19/18 15:34 Dose: 40 mg Metoprolol Tartrate (Lopressor) 50 mg PO BID [facility] Last Admin: 09/19/18 18:01 Dose: Not Given Montelukast Sodium (Singulair) 10 mg PO [facility] Last Admin: 09/18/18 22:36 Dose: 10 mg Mupirocin (Bactroban Ointment) 0 gm NS DAILY [facility] Stop: 09/28/18 10:01 Last Admin: 09/19/18 11:25 Dose: Not Given Oxycodone HCl (Oxycodone Immediate Release Tab) 10 mg PO Q6H PRN PRN Reason: Pain, moderate (4-7) Last Admin: 09/15/18 17:53 Dose: 10 mg Pantoprazole Sodium (Protonix Ec Tab) 40 mg PO 0600 [facility] Last Admin: 09/19/18 05:47 Dose: Not Given Polyethylene Glycol (Miralax) 17 gm PO BID [facility] Last Admin: 09/19/18 18:01 Dose: Not Given Pregabalin (Lyrica) 50 mg PO [facility] Last Admin: 09/18/18 22:36 Dose: 50 mg Sildenafil Citrate (Revatio) 20 mg PO BID [facility] Last Admin: 09/19/18 18:01 Dose: Not Given Silver Sulfadiazine (Silvadene 1% 25 Gm) 0 gm TP DAILY [facility] Last Admin: 09/19/18 14:43 Dose: Not Given Physical Exam - Constitutional Appears: Toxic, Older Than Stated Age, Confused, Chronically Ill - Head Exam Head Exam: NORMAL INSPECTION - Eye Exam Eye Exam: Normal appearance - ENT Exam ENT Exam: Mucous Membranes Dry - Respiratory Exam Respiratory Exam: Decreased Breath Sounds, NORMAL BREATHING PATTERN - Cardiovascular Exam Cardiovascular Exam: REGULAR RHYTHM, +S1, +S2 - GI/Abdominal Exam GI & Abdominal Exam: Normal Bowel Sounds, Soft - Extremities Exam Additional comments: R foot in bandage - Neurological Exam Neurological exam: Altered - Skin Skin Exam: Normal Color, Warm Results - Vital Signs Recent Vital Signs: Last Vital Signs Temp 98.6 F 09/19/18 14:00 Pulse 81 09/19/18 16:37 Resp 22 09/19/18 14:00 BP 141/65 09/19/18 14:00 Pulse Ox 90 L 09/19/18 14:00 - Labs Result Diagrams: 09/19/18 06:30 09/19/18 06:30 Labs: Laboratory Results - last 24 hr 09/19/18 09/19/18 09/19/18 06:30 06:30 15:59 WBC 8.7 D RBC 2.75 L Hgb 8.2 L Hct 25.7 L MCV 93.5 MCH 29.8 MCHC 31.9 RDW 16.8 H Plt Count 225 MPV 9.8 Neut % (Auto) 96.4 H Lymph % (Auto) 1.9 L [place] % (Auto) 1.7 Eos % (Auto) 0.0 L Baso % (Auto) 0.0 Lymph # (Auto) 0.2 L [place] # (Auto) 0.2 Eos # (Auto) 0.0 Baso # (Auto) 0.00 Absolute Neuts (auto) 8.41 H pCO2 29 L pO2 101.0 H HCO3 17.2 L ABG pH 7.38 ABG Total CO2 18.1 L ABG O2 Saturation 98.6 H ABG Base Excess -6.6 L ABG Potassium 3.6 Glucose 114 H Lactate 1.8 FiO2 40.0 Sodium 135 138.0 Potassium 3.9 Chloride 105 109.0 H Carbon Dioxide 22 Anion Gap 11 BUN 63 H Creatinine 4.1 H Est GFR ( Amer) 13 Est GFR (Non-Af Amer) 11 Random Glucose 133 H Uric Acid 7.3 H Calcium 8.8 Phosphorus 4.5 Magnesium 1.8 Total Bilirubin 0.6 AST 65 H ALT 42 Alkaline Phosphatase 83 NT-Pro-B Natriuret Pep 73414 H Total Protein 4.7 L Albumin 2.4 L Globulin 2.3 Albumin/Globulin Ratio 1.0 L Arterial Blood Potassium 3.6 - Imaging and Cardiology Chest x-ray Status: Image reviewed by me, Report reviewed by me Assessment & Plan - Assessment and Plan (Free Text) Assessment: 78yo female with multi-organ failure Renal failure Pulm HTN CAD/CABG Hx of Breast Ca COPD Resp failure with hypoxia PNA - currently afebrile, BP stable, comfortable on BIPAP, somnolent, but responds to verbal/painful stimuli - labs, imaging, chart reviewed - worsening renal failure, will likely need HD - DNR rescinded - family at bedside updated of all clinical findings, and objective data - renal, carido, pulm following Recommend: - cont with BIPAP as tolerated, obtain AM ABG, CXR, follow up pulm, tolerating biPAP currently - Broad spectrum Abx, Vanco, Cefepime - follow up cultures, procal - BP control - would DC Lasix - follow up renal - follow up cardio - FS control - Solumedrol 40mg IV BID - monitor LFTs - will need HD likely - GI ppx - DVT ppx - Transfer to MICU Poor prognosis FULL CODE Critical care time 45 minutes
--- NOTE | 2018-09-19 18:45 | CP.PCM.PN ---
Subjective - Date & Time of Evaluation Date of Evaluation: 09/19/18 Time of Evaluation: 18:42 - Subjective Subjective: Pts Family Contacts: Brittany David - Daughter: Lisbet Chilel - Daughter: , Mik Chand - Common Law Spouse: Riya Bar - Daughter: , Objective - Vital Signs/Intake and Output Vital Signs (last 24 hours): Temp Pulse Resp BP Pulse Ox 98.6 F 81 22 141/65 90 L 09/19/18 14:00 09/19/18 16:37 09/19/18 14:00 09/19/18 14:00 09/19/18 14:00 Intake and Output: 09/19/18 09/19/18 06:59 18:59 Intake Total 120 Output Total 250 300 Balance -130 -300 - Medications Medications: Current Medications Albuterol/Ipratropium (Duoneb 3 Mg/0.5 Mg (3 Ml) Ud) 3 ml IH Q1H PRN PRN Reason: Shortness of Breath Last Admin: 09/18/18 08:32 Dose: 3 ml Albuterol/Ipratropium (Duoneb 3 Mg/0.5 Mg (3 Ml) Ud) 3 ml IH [id number] [facility] Last Admin: 09/19/18 15:54 Dose: 3 ml Arformoterol Tartrate (Brovana) 15 mcg IH [id number] [facility] Last Admin: 09/19/18 11:12 Dose: 15 mcg Aspirin (Ecotrin) 81 mg PO DAILY [facility] Last Admin: 09/19/18 11:25 Dose: Not Given Atorvastatin Calcium (Lipitor) 20 mg PO DIN [facility] Last Admin: 09/19/18 18:01 Dose: Not Given Budesonide (Pulmicort Respules) 0.5 mg IH [id number] [facility] Last Admin: 09/19/18 11:12 Dose: 0.5 mg Doxycycline Hyclate (Doryx) 100 mg PO Q12 [facility]; Protocol Last Admin: 09/19/18 11:25 Dose: Not Given Enoxaparin Sodium (Lovenox) 30 mg SC DAILY [facility]; Protocol Last Admin: 09/19/18 11:41 Dose: 30 mg Escitalopram Oxalate (Lexapro) 10 mg PO DAILY [facility] Last Admin: 09/19/18 11:26 Dose: Not Given Famotidine (Pepcid) 20 mg PO 1000,2200 [facility] Last Admin: 09/19/18 11:27 Dose: Not Given Furosemide (Lasix) 40 mg IV DAILY [facility] Last Admin: 09/19/18 11:41 Dose: 40 mg Cefepime HCl (Maxipime 1gm) 1 gm in 100 mls @ 100 mls/hr IVPB DAILY [facility]; Protocol Lidocaine HCl (Xylocaine 2% (Uro-Jet)) 1 ea TOP DAILY [facility] Last Admin: 09/19/18 15:34 Dose: Not Given Methylprednisolone (Solu-Medrol) 40 mg IVP Q8H [facility] Last Admin: 09/19/18 15:34 Dose: 40 mg Metoprolol Tartrate (Lopressor) 50 mg PO BID [facility] Last Admin: 09/19/18 18:01 Dose: Not Given Montelukast Sodium (Singulair) 10 mg PO HS [facility] Last Admin: 09/18/18 22:36 Dose: 10 mg Mupirocin (Bactroban Ointment) 0 gm NS DAILY [facility] Stop: 09/28/18 10:01 Last Admin: 09/19/18 11:25 Dose: Not Given Oxycodone HCl (Oxycodone Immediate Release Tab) 10 mg PO Q6H PRN PRN Reason: Pain, moderate (4-7) Last Admin: 09/15/18 17:53 Dose: 10 mg Pantoprazole Sodium (Protonix Ec Tab) 40 mg PO 0600 [facility] Last Admin: 09/19/18 05:47 Dose: Not Given Polyethylene Glycol (Miralax) 17 gm PO BID [facility] Last Admin: 09/19/18 18:01 Dose: Not Given Pregabalin (Lyrica) 50 mg PO HS [facility] Last Admin: 09/18/18 22:36 Dose: 50 mg Sildenafil Citrate (Revatio) 20 mg PO BID [facility] Last Admin: 09/19/18 18:01 Dose: Not Given Silver Sulfadiazine (Silvadene 1% 25 Gm) 0 gm TP DAILY [facility] Last Admin: 09/19/18 14:43 Dose: Not Given - Labs Labs: 09/19/18 06:30 09/19/18 06:30
--- NOTE | 2018-09-19 22:17 | PN ---
DATE: 09/19/2018 SUBJECTIVE: The patient is currently seen on 5R. She is on BiPAP. She is breathing agonally. She has been made a DNR/DNI, and her common-law is questioning that decision made by other family members. The patient has worsening renal parameters. She remains volume overloaded with minimal urine output. Her BUN is 63 with a creatinine of 4.1 today. MEDICATIONS: Medication list reviewed. The patient is currently on mupirocin, Brovana, doxycycline, DuoNeb, Ecotrin, IV Lasix, Lexapro, Lipitor, Lopressor, Lovenox, Lyrica, Maxipime, MiraLax, oxycodone p.r.n., Pepcid, Protonix, Pulmicort, Revatio, Silvadene ointment, Singulair, Solu-Medrol, and lidocaine 2% Uro-Jet. OBJECTIVE: INTAKE/OUTPUT: Intake is 120, output is 400. VITAL SIGNS: Blood pressure 141/65, temperature 98.6, respiratory rate 22 with a pulse of 81. Oxygen saturation is 90%. HEENT: Shows her to be normocephalic and atraumatic. The patient has a BiPAP mask in place. NECK: No neck vein distention. CHEST: Scattered rhonchi. No rales or wheezing. Decreased breath sounds at the bases. The patient has a port in her right chest wall. CARDIOVASCULAR: Shows a regular rate and rhythm without audible murmurs, rubs or gallops. ABDOMEN: Soft. Bowel sounds normal. No rebound. No guarding. No masses. EXTREMITIES: Show a dressing over her right lower extremity. No lower extremity cyanosis, clubbing or edema. LABORATORY DATA AND IMAGING: Renal ultrasound showed bilateral kidney cysts, no hydronephrosis. Today's chest x-ray showed pulmonary vascular congestion. Chest CT scan done two days ago showed bilateral infiltrates, possible pneumonia. CBC: White blood cell count today is 8.7, hemoglobin 8.2 with a platelet count of 225,000. Blood gas today showed a pH of 7.38, pO2 of 101 and pCO2 of 29. Chemistry showed normal electrolytes. BUN is up to 63 with a creatinine of 4.1. Her baseline BUN is in the 20s. Her baseline creatinine is less than 1. Urine Sameer's stain is negative. Urinalysis otherwise unremarkable. Urine for Legionella pneumonia is negative. Microbiology: Leg wound culture is positive for coag-negative Staphylococcus. Blood cultures are negative from 09/13/2018. ASSESSMENT: 1. Acute renal failure in a patient with no past history of chronic kidney disease. The patient is now oliguric with rising blood urea nitrogen and creatinine. 2. ASHD, status post coronary artery bypass graft. 3. History of severe chronic obstructive pulmonary disease, on steroids inhalation therapy. 4. History of bilateral pneumonia, on antibiotic therapy. 5. Right leg infection. Wound culture is positive for coagulase-negative Staphylococcus, on antibiotics. 6. Metastatic breast cancer, stage IV. The patient states that this is stable and not a hopeless situation. 7. Do Not Resuscitate/Do Not Intubate noted. PLAN: 1. Lengthy discussion with family. Explained to them that worsening renal parameters. Explained to them that because of a DNR/DNI, we would not consider dialysis. Her common-law who was in the room questions the decision to make her a DNR/DNI and states he would like to have everything done for his common-law . I will leave this decision up to the family, and the end-of-life team to make a decision about the appropriate health care proxy and who would make the final decision. 2. Explained to the patient's family that renal failure could perhaps worsen if she remains oliguric. It is not possible to give her IV fluid hydration as she remains volume overloaded and the chest x-ray shows CHF. She had been receiving diuretic therapy. 3. Bilateral pneumonia. The patient remains on antibiotic therapy. 4. Lower extremity wound infection, on antibiotic therapy. 5. We will await decision regarding her DNR/DNI status. The patient will be evaluated again by Juliana Jasmine. 6. If her renal parameters should significantly worsen, family decides to have everything done for her including the possible intubation and dialysis perhaps will come in to play. 7. Discussed with staff on 5R. Michael Mcmahan MD
[2018-09-20] MEDS: Albuterol-Ipratrop 3 mg / 0.5 (3 ml) UD IH SCH ×6 (03:45→21:42)
[2018-09-20 05:41] LABS: ARTERIAL BLOOD GAS HCO3 20.1 mmol/L (21-28); ARTERIAL BLOOD GAS O2 CAPACITY 11.1 mL/dl (16-24); ARTERIAL BLOOD GAS O2 CONTENT 10.8 ML/dl (15-23); ARTERIAL BLOOD GAS O2 SAT 97.5 % (95-98); ARTERIAL BLOOD GAS PCO2 31 mm/Hg (35-45); ARTERIAL BLOOD GAS PH 7.42 (7.35-7.45); ARTERIAL BLOOD GAS TCO2 21.1 mmol.L (22-28)
[2018-09-20] MEDS ORDERED: Vancomycin 1gm in NS 250ml 1 GM/250 ML BAG IVPB STA (06:15)
[2018-09-20 07:12] LABS: HEMOGLOBIN 9.3 g/dL (12.0-16.0); MEAN CELL VOLUME 93.3 fl (80.0-105.0); MEAN CORPUSCULAR HEMOGLOBIN 29.6 pg (25.0-35.0); MEAN CORPUSCULAR HGB CONC 31.7 g/dl (31.0-37.0); RBC 3.14 10^6/uL (3.5-6.1); WHITE BLOOD COUNT 9.2 10^3/uL (4.5-11.0)
[2018-09-20 07:22] LABS: ALBUMIN 2.7 g/dL (3.0-4.8)
[2018-09-20 07:24] LABS: CALCIUM 9.4 mg/dL (8.4-10.5)
[2018-09-20] MEDS: Arformoterol 15 mcg/2 ml Inh Sol IH SCH ×2 (08:11→19:40)
[2018-09-20] MEDS: Budesonide 0.5 mg/2 ml Inhal Susp UD IH SCH ×2 (08:11→19:45)
--- NOTE | 2018-09-20 08:56 | CP.CCUPN ---
<Bernadine White - Last Filed: 09/20/18 12:05> CCU Subjective - Physician Review Subjective (Free Text): 09/20/18 08:48 Bernadine White, PGY-1 ICU Progress Note Pt was seen and examined this AM with ICU team. Pt is somnolent on exam today and therefore ROS is limited. Pt is on Bipap and sating well. CCU Objective - Vital Signs / Intake & Output Vital Signs (Last 4 hours): Vital Signs Temp Pulse Resp BP Pulse Ox 09/20/18 06:00 98.3 F 70 14 151/64 H 95 Intake and Output (Last 8hrs): Intake & Output 09/19/18 09/20/18 09/20/18 22:59 06:59 14:59 Output Total 150 Balance -150 Output: Urine 150 Urine, Voided 150 - Physical Exam Head: Positive for: Atraumatic, Normocephalic, Contusion (over the left eyebrow, no stepoff). Negative for: Tenderness (no tenderness to plapation over the contusion) Pupils: Positive for: PERRL Extroacular Muscles: Positive for: EOMI Conjunctiva: Positive for: Normal Mouth: Positive for: Moist Mucous Membranes Neck: Positive for: Normal Range of Motion Respiratory/Chest: Positive for: Clear to Auscultation, Good Air Exchange, Wheezes (end expiratory wheezes), Rhonchi (diffuse rhonchi ), Other ([place] to the right upper chest wall. ). Negative for: Respiratory Distress, Accessory Muscle Use Cardiovascular: Positive for: Regular Rate and Rhythm, Normal S1, S2. Negative for: Murmurs Abdomen: Negative for: Tenderness, Distention, Peritoneal Signs Back: Positive for: Normal Inspection, Decubitus Ulcer (foul odor, left buttock open wound 5x6cm, w/surrounding erythema, not draining; right buttock 2.5x3 cm not open, erythematous; + increased warmth; no streaking from either wound) Upper Extremity: Positive for: Normal Inspection. Negative for: Cyanosis, Edema Lower Extremity: Positive for: Edema (2+ bilateral lower extremity pitting edema ) Neurological: Positive for: GCS=15, CN II-XII Intact, Speech Normal Skin: Positive for: Warm, Dry, Normal Color, Other (Patient has foul smelling wounds on buttocks. Left buttocks: stage 1, open wound. Right buttocks: skin break down 2 1/2 by 3 inches). Negative for: Rashes Psychiatric: Positive for: Other (somnolent) - Medications Active Medications: Active Medications Generic Name Dose Route Start Last Admin Trade Name Freq PRN Reason Stop Dose Admin Albuterol/Ipratropium 3 ml 09/18/18 08:26 09/18/18 08:32 Duoneb 3 Mg/0.5 Mg (3 Ml) Ud IH 3 ml Q1H PRN Administration Shortness of Breath Albuterol/Ipratropium 3 ml 09/18/18 11:30 09/20/18 08:11 Duoneb 3 Mg/0.5 Mg (3 Ml) Ud IH 3 ml [id number] TORI Administration Arformoterol Tartrate 15 mcg 09/13/18 20:00 09/20/18 08:11 Brovana IH 15 mcg [id number] TORI Administration Aspirin 81 mg 09/14/18 10:00 09/19/18 11:25 Ecotrin PO Not Given DAILY TORI Atorvastatin Calcium 20 mg 09/14/18 17:00 09/19/18 18:01 Lipitor PO Not Given DIN TORI Budesonide 0.5 mg 09/15/18 08:00 09/20/18 08:11 Pulmicort Respules IH 0.5 mg [id number] TORI Administration Doxycycline Hyclate 100 mg 09/13/18 22:00 09/19/18 21:03 Doryx PO Not Given Q12 TORI Protocol Enoxaparin Sodium 30 mg 09/17/18 16:15 09/19/18 11:41 Lovenox SC 30 mg DAILY TORI Administration Protocol Escitalopram Oxalate 10 mg 09/14/18 10:00 09/19/18 11:26 Lexapro PO Not Given DAILY TORI Famotidine 20 mg 09/20/18 07:54 Pepcid PO HS TORI Furosemide 40 mg 09/19/18 10:00 09/19/18 11:41 Lasix IV 40 mg DAILY TORI Administration Meropenem 250 mg/ Sodium 100 mls @ 100 mls/hr 09/20/18 06:15 09/20/18 07:15 Chloride IVPB 09/27/18 06:16 100 mls/hr Q12H TORI Administration Protocol Lidocaine HCl 1 ea 09/14/18 10:00 09/19/18 15:34 Xylocaine 2% (Uro-Jet) TOP Not Given DAILY [facility] Methylprednisolone 40 mg 09/20/18 10:00 Solu-Medrol IVP Q12 [facility] Metoprolol Tartrate 50 mg 09/13/18 19:30 09/19/18 18:01 Lopressor PO Not Given BID [facility] Montelukast Sodium 10 mg 09/13/18 22:00 09/19/18 21:04 Singulair PO Not Given HS [facility] Mupirocin 0 gm 09/20/18 10:00 Bactroban Ointment TOP 09/29/18 10:01 DAILY [facility] Oxycodone HCl 10 mg 09/13/18 19:19 09/15/18 17:53 Oxycodone Immediate Release Tab PO 10 mg Q6H PRN Administration Pain, moderate (4-7) Pantoprazole Sodium 40 mg 09/14/18 06:00 09/19/18 05:47 Protonix Ec Tab PO Not Given 0600 [facility] Pantoprazole Sodium 40 mg 09/20/18 10:00 Protonix Inj IVP DAILY [facility] Polyethylene Glycol 17 gm 09/14/18 10:00 09/19/18 18:01 Miralax PO Not Given BID [facility] Pregabalin 50 mg 09/13/18 22:00 09/19/18 21:03 Lyrica PO Not Given HS [facility] Sildenafil Citrate 20 mg 09/13/18 19:30 09/19/18 18:01 Revatio PO Not Given BID [facility] Silver Sulfadiazine 0 gm 09/14/18 10:00 09/19/18 14:43 Silvadene 1% 25 Gm TP Not Given DAILY [facility] - Patient Studies Lab Studies: Lab Studies 09/20/18 09/20/18 09/20/18 Range/Units 06:40 06:40 05:30 WBC 9.2 (4.5-11.0) 10^3/uL RBC 3.14 L (3.5-6.1) 10^6/uL Hgb 9.3 L (12.0-16.0) g/dL Hct 29.3 L (36.0-48.0) % MCV 93.3 (80.0-105.0) fl MCH 29.6 (25.0-35.0) pg MCHC 31.7 (31.0-37.0) g/dl RDW 17.0 H (11.5-14.5) % Plt Count 220 (120.0-450.0) 10^3/uL MPV 10.0 (7.0-11.0) fl pCO2 31 L (35-45) mm/Hg pO2 77.0 L (80-100) mm/Hg HCO3 20.1 L (21-28) mmol/L ABG pH 7.42 (7.35-7.45) ABG Total CO2 21.1 L (22-28) mmol.L ABG O2 Saturation 97.5 (95-98) % ABG O2 Content 10.8 L (15-23) ML/dl ABG Base Excess -3.8 L (-2.0-3.0) mmol/L ABG Hemoglobin 8.0 L (11.7-17.4) g/dL ABG Carboxyhemoglobin 1.6 H (0.5-1.5) % POC ABG HHb (Measured) 2.4 (0-5) % ABG Methemoglobin 0.9 (0.0-3.0) % ABG O2 Capacity 11.1 L (16-24) mL/dl ABG Potassium (3.6-5.2) mmol/L Hgb O2 Saturation 95.1 (95.0-98.0) % Sodium 137 (132-148) mmol/L Chloride 103 (98-107) mmol/L Glucose (65-105) mg/dl Lactate (0.7-2.1) mmol/L FiO2 40.0 % Potassium 4.1 (3.6-5.0) mmol/L Carbon Dioxide 24 (21-33) mmol/L Anion Gap 14 (10-20) BUN 76 H (7-21) mg/dL Creatinine 5.2 H (0.7-1.2) mg/dl Est GFR ( Amer) 10 Est GFR (Non-Af Amer) 8 Random Glucose 123 H (70-110) mg/dL Calcium 9.4 (8.4-10.5) mg/dL Phosphorus 5.1 H (2.5-4.5) mg/dL Magnesium 2.1 (1.7-2.2) mg/dL Total Bilirubin 0.6 (0.2-1.3) mg/dL AST 55 H (14-36) U/L ALT 41 (7-56) U/L Alkaline Phosphatase 80 (38-126) U/L Total Protein 5.4 L (5.8-8.3) g/dL Albumin 2.7 L (3.0-4.8) g/dL Globulin 2.7 gm/dL Albumin/Globulin Ratio 1.0 L (1.1-1.8) Arterial Blood Potassium (3.6-5.2) mmol/L 09/19/18 Range/Units 15:59 WBC (4.5-11.0) 10^3/uL RBC (3.5-6.1) 10^6/uL Hgb (12.0-16.0) g/dL Hct (36.0-48.0) % MCV (80.0-105.0) fl MCH (25.0-35.0) pg MCHC (31.0-37.0) g/dl RDW (11.5-14.5) % Plt Count (120.0-450.0) 10^3/uL MPV (7.0-11.0) fl pCO2 29 L (35-45) mm/Hg pO2 101.0 H (80-100) mm/Hg HCO3 17.2 L (21-28) mmol/L ABG pH 7.38 (7.35-7.45) ABG Total CO2 18.1 L (22-28) mmol.L ABG O2 Saturation 98.6 H (95-98) % ABG O2 Content (15-23) ML/dl ABG Base Excess -6.6 L (-2.0-3.0) mmol/L ABG Hemoglobin (11.7-17.4) g/dL ABG Carboxyhemoglobin (0.5-1.5) % POC ABG HHb (Measured) (0-5) % ABG Methemoglobin (0.0-3.0) % ABG O2 Capacity (16-24) mL/dl ABG Potassium 3.6 (3.6-5.2) mmol/L Hgb O2 Saturation (95.0-98.0) % Sodium 138.0 (132-148) mmol/L Chloride 109.0 H (98-107) mmol/L Glucose 114 H (65-105) mg/dl Lactate 1.8 (0.7-2.1) mmol/L FiO2 40.0 % Potassium (3.6-5.0) mmol/L Carbon Dioxide (21-33) mmol/L Anion Gap (10-20) BUN (7-21) mg/dL Creatinine (0.7-1.2) mg/dl Est GFR ( Amer) Est GFR (Non-Af Amer) Random Glucose (70-110) mg/dL Calcium (8.4-10.5) mg/dL Phosphorus (2.5-4.5) mg/dL Magnesium (1.7-2.2) mg/dL Total Bilirubin (0.2-1.3) mg/dL AST (14-36) U/L ALT (7-56) U/L Alkaline Phosphatase (38-126) U/L Total Protein (5.8-8.3) g/dL Albumin (3.0-4.8) g/dL Globulin gm/dL Albumin/Globulin Ratio (1.1-1.8) Arterial Blood Potassium 3.6 (3.6-5.2) mmol/L Laboratory Results - last 24 hr 09/19/18 09/20/18 09/20/18 15:59 05:30 06:40 WBC 9.2 RBC 3.14 L Hgb 9.3 L Hct 29.3 L MCV 93.3 MCH 29.6 MCHC 31.7 RDW 17.0 H Plt Count 220 MPV 10.0 pCO2 29 L 31 L pO2 101.0 H 77.0 L HCO3 17.2 L 20.1 L ABG pH 7.38 7.42 ABG Total CO2 18.1 L 21.1 L ABG O2 Saturation 98.6 H 97.5 ABG O2 Content 10.8 L ABG Base Excess -6.6 L -3.8 L ABG Hemoglobin 8.0 L ABG Carboxyhemoglobin 1.6 H POC ABG HHb (Measured) 2.4 ABG Methemoglobin 0.9 ABG O2 Capacity 11.1 L ABG Potassium 3.6 Hgb O2 Saturation 95.1 Sodium 138.0 Chloride 109.0 H Glucose 114 H Lactate 1.8 FiO2 40.0 40.0 Potassium Carbon Dioxide Anion Gap BUN Creatinine Est GFR ( Amer) Est GFR (Non-Af Amer) Random Glucose Calcium Phosphorus Magnesium Total Bilirubin AST ALT Alkaline Phosphatase Total Protein Albumin Globulin Albumin/Globulin Ratio Arterial Blood Potassium 3.6 09/20/18 06:40 WBC RBC Hgb Hct MCV MCH MCHC RDW Plt Count MPV pCO2 pO2 HCO3 ABG pH ABG Total CO2 ABG O2 Saturation ABG O2 Content ABG Base Excess ABG Hemoglobin ABG Carboxyhemoglobin POC ABG HHb (Measured) ABG Methemoglobin ABG O2 Capacity ABG Potassium Hgb O2 Saturation Sodium 137 Chloride 103 Glucose Lactate FiO2 Potassium 4.1 Carbon Dioxide 24 Anion Gap 14 BUN 76 H Creatinine 5.2 H Est GFR ( Amer) 10 Est GFR (Non-Af Amer) 8 Random Glucose 123 H Calcium 9.4 Phosphorus 5.1 H Magnesium 2.1 Total Bilirubin 0.6 AST 55 H ALT 41 Alkaline Phosphatase 80 Total Protein 5.4 L Albumin 2.7 L Globulin 2.7 Albumin/Globulin Ratio 1.0 L Arterial Blood Potassium Critical Care Progress Note - Nutrition Nutrition: Nutrition Category Date Time Status Heart Healthy Diet [DIET] Diets 09/13/18 Dinner Active Assessment/Plan - Assessment and Plan (Free Text) Assessment: 78yo F with PMHx of Metastatic Breast CA, COPD, Pulm HTN, CKD, PVD, GERD, who is ICU was consulted for due to acute hypoxic resp failure and multi-organ failure. Plan: Neuro: - AOx0 - Somnolent - Will cont to monitor Pulm: - Pt is tolerating Bipap well overnight, on 40% FiO2, will attempt to wean off of bipap onto NC - CXR: Increasing RUL infiltrate - Abx per ID recs - follow up cultures, procal - Cont duonebs, brovana as ordered - Solumedrol 40mg IV BID - Maintain O2 sat >88% Cardio: - BP control - Cont Asa, Lipitor, lopressor - would DC Lasix - follow up cardio Endo - FS control GI - LTFs downtrending Nephro: - will need HD likely - Nephro recs appreciated GI: Pepcid DVT: Heparin Case seen and discussed with Dr. Jose White, PGY-1 <Janak Garcia - Last Filed: 09/20/18 13:53> CCU Objective - Vital Signs / Intake & Output Vital Signs (Last 4 hours): Vital Signs Pulse 09/20/18 12:37 80 Intake and Output (Last 8hrs): Intake & Output 09/19/18 09/20/18 09/20/18 22:59 06:59 14:59 Output Total 150 Balance -150 Output: Urine 150 Urine, Voided 150 - Medications Active Medications: Active Medications Generic Name Dose Route Start Last Admin Trade Name Freq PRN Reason Stop Dose Admin Albuterol/Ipratropium 3 ml 09/18/18 08:26 09/18/18 08:32 Duoneb 3 Mg/0.5 Mg (3 Ml) Ud IH 3 ml Q1H PRN Administration Shortness of Breath Albuterol/Ipratropium 3 ml 09/18/18 11:30 09/20/18 11:22 Duoneb 3 Mg/0.5 Mg (3 Ml) Ud IH 3 ml [id number] TORI Administration Arformoterol Tartrate 15 mcg 09/13/18 20:00 09/20/18 08:11 Brovana IH 15 mcg [id number] TORI Administration Aspirin 81 mg 09/14/18 10:00 09/19/18 11:25 Ecotrin PO Not Given DAILY TORI Atorvastatin Calcium 20 mg 09/14/18 17:00 09/19/18 18:01 Lipitor PO Not Given DIN [facility] Budesonide 0.5 mg 09/15/18 08:00 09/20/18 08:11 Pulmicort Respules IH 0.5 mg [id number] TORI Administration Doxycycline Hyclate 100 mg 09/13/18 22:00 09/20/18 09:34 Doryx PO Not Given Q12 TORI Protocol Enoxaparin Sodium 30 mg 09/17/18 16:15 09/20/18 09:33 Lovenox SC 30 mg DAILY TORI Administration Protocol Escitalopram Oxalate 10 mg 09/14/18 10:00 09/20/18 09:35 Lexapro PO Not Given DAILY [facility] Famotidine 20 mg 09/20/18 07:54 Pepcid PO HS [facility] Furosemide 40 mg 09/19/18 10:00 09/20/18 09:34 Lasix IV 40 mg DAILY TORI Administration Meropenem 250 mg/ Sodium 100 mls @ 100 mls/hr 09/20/18 06:15 09/20/18 07:15 Chloride IVPB 09/27/18 06:16 100 mls/hr Q12H TORI Administration Protocol Lidocaine HCl 1 ea 09/20/18 10:40 Xylocaine 2% TOP DAILY TORI Methylprednisolone 40 mg 09/20/18 10:00 09/20/18 09:32 Solu-Medrol IVP 40 mg Q12 TORI Administration Metoprolol Tartrate 50 mg 09/13/18 19:30 09/20/18 09:36 Lopressor PO Not Given BID TORI Montelukast Sodium 10 mg 09/13/18 22:00 09/19/18 21:04 Singulair PO Not Given HS TORI Mupirocin 0 gm 09/20/18 10:00 09/20/18 09:33 Bactroban Ointment TOP 09/29/18 10:01 1 applic DAILY TORI Administration Oxycodone HCl 10 mg 09/13/18 19:19 09/15/18 17:53 Oxycodone Immediate Release Tab PO 10 mg Q6H PRN Administration Pain, moderate (4-7) Pantoprazole Sodium 40 mg 09/20/18 10:00 09/20/18 09:32 Protonix Inj IVP 40 mg DAILY [facility] Administration Polyethylene Glycol 17 gm 09/14/18 10:00 09/20/18 09:36 Miralax PO Not Given BID [facility] Pregabalin 50 mg 09/13/18 22:00 09/19/18 21:03 Lyrica PO Not Given HS [facility] Sildenafil Citrate 20 mg 09/13/18 19:30 09/19/18 18:01 Revatio PO Not Given BID [facility] Silver Sulfadiazine 0 gm 09/14/18 10:00 09/19/18 14:43 Silvadene 1% 25 Gm TP Not Given DAILY [facility] - Patient Studies Lab Studies: Lab Studies 09/20/18 09/20/18 09/20/18 Range/Units 06:40 06:40 05:30 WBC 9.2 (4.5-11.0) 10^3/uL RBC 3.14 L (3.5-6.1) 10^6/uL Hgb 9.3 L (12.0-16.0) g/dL Hct 29.3 L (36.0-48.0) % MCV 93.3 (80.0-105.0) fl MCH 29.6 (25.0-35.0) pg MCHC 31.7 (31.0-37.0) g/dl RDW 17.0 H (11.5-14.5) % Plt Count 220 (120.0-450.0) 10^3/uL MPV 10.0 (7.0-11.0) fl pCO2 31 L (35-45) mm/Hg pO2 77.0 L (80-100) mm/Hg HCO3 20.1 L (21-28) mmol/L ABG pH 7.42 (7.35-7.45) ABG Total CO2 21.1 L (22-28) mmol.L ABG O2 Saturation 97.5 (95-98) % ABG O2 Content 10.8 L (15-23) ML/dl ABG Base Excess -3.8 L (-2.0-3.0) mmol/L ABG Hemoglobin 8.0 L (11.7-17.4) g/dL ABG Carboxyhemoglobin 1.6 H (0.5-1.5) % POC ABG HHb (Measured) 2.4 (0-5) % ABG Methemoglobin 0.9 (0.0-3.0) % ABG O2 Capacity 11.1 L (16-24) mL/dl ABG Potassium (3.6-5.2) mmol/L Hgb O2 Saturation 95.1 (95.0-98.0) % Sodium 137 (132-148) mmol/L Chloride 103 (98-107) mmol/L Glucose (65-105) mg/dl Lactate (0.7-2.1) mmol/L FiO2 40.0 % Potassium 4.1 (3.6-5.0) mmol/L Carbon Dioxide 24 (21-33) mmol/L Anion Gap 14 (10-20) BUN 76 H (7-21) mg/dL Creatinine 5.2 H (0.7-1.2) mg/dl Est GFR ( Amer) 10 Est GFR (Non-Af Amer) 8 Random Glucose 123 H (70-110) mg/dL Calcium 9.4 (8.4-10.5) mg/dL Phosphorus 5.1 H (2.5-4.5) mg/dL Magnesium 2.1 (1.7-2.2) mg/dL Total Bilirubin 0.6 (0.2-1.3) mg/dL AST 55 H (14-36) U/L ALT 41 (7-56) U/L Alkaline Phosphatase 80 (38-126) U/L Total Protein 5.4 L (5.8-8.3) g/dL Albumin 2.7 L (3.0-4.8) g/dL Globulin 2.7 gm/dL Albumin/Globulin Ratio 1.0 L (1.1-1.8) Arterial Blood Potassium (3.6-5.2) mmol/L 09/19/18 Range/Units 15:59 WBC (4.5-11.0) 10^3/uL RBC (3.5-6.1) 10^6/uL Hgb (12.0-16.0) g/dL Hct (36.0-48.0) % MCV (80.0-105.0) fl MCH (25.0-35.0) pg MCHC (31.0-37.0) g/dl RDW (11.5-14.5) % Plt Count (120.0-450.0) 10^3/uL MPV (7.0-11.0) fl pCO2 29 L (35-45) mm/Hg pO2 101.0 H (80-100) mm/Hg HCO3 17.2 L (21-28) mmol/L ABG pH 7.38 (7.35-7.45) ABG Total CO2 18.1 L (22-28) mmol.L ABG O2 Saturation 98.6 H (95-98) % ABG O2 Content (15-23) ML/dl ABG Base Excess -6.6 L (-2.0-3.0) mmol/L ABG Hemoglobin (11.7-17.4) g/dL ABG Carboxyhemoglobin (0.5-1.5) % POC ABG HHb (Measured) (0-5) % ABG Methemoglobin (0.0-3.0) % ABG O2 Capacity (16-24) mL/dl ABG Potassium 3.6 (3.6-5.2) mmol/L Hgb O2 Saturation (95.0-98.0) % Sodium 138.0 (132-148) mmol/L Chloride 109.0 H (98-107) mmol/L Glucose 114 H (65-105) mg/dl Lactate 1.8 (0.7-2.1) mmol/L FiO2 40.0 % Potassium (3.6-5.0) mmol/L Carbon Dioxide (21-33) mmol/L Anion Gap (10-20) BUN (7-21) mg/dL Creatinine (0.7-1.2) mg/dl Est GFR ( Amer) Est GFR (Non-Af Amer) Random Glucose (70-110) mg/dL Calcium (8.4-10.5) mg/dL Phosphorus (2.5-4.5) mg/dL Magnesium (1.7-2.2) mg/dL Total Bilirubin (0.2-1.3) mg/dL AST (14-36) U/L ALT (7-56) U/L Alkaline Phosphatase (38-126) U/L Total Protein (5.8-8.3) g/dL Albumin (3.0-4.8) g/dL Globulin gm/dL Albumin/Globulin Ratio (1.1-1.8) Arterial Blood Potassium 3.6 (3.6-5.2) mmol/L Laboratory Results - last 24 hr 09/19/18 09/20/18 09/20/18 15:59 05:30 06:40 WBC 9.2 RBC 3.14 L Hgb 9.3 L Hct 29.3 L MCV 93.3 MCH 29.6 MCHC 31.7 RDW 17.0 H Plt Count 220 MPV 10.0 pCO2 29 L 31 L pO2 101.0 H 77.0 L HCO3 17.2 L 20.1 L ABG pH 7.38 7.42 ABG Total CO2 18.1 L 21.1 L ABG O2 Saturation 98.6 H 97.5 ABG O2 Content 10.8 L ABG Base Excess -6.6 L -3.8 L ABG Hemoglobin 8.0 L ABG Carboxyhemoglobin 1.6 H POC ABG HHb (Measured) 2.4 ABG Methemoglobin 0.9 ABG O2 Capacity 11.1 L ABG Potassium 3.6 Hgb O2 Saturation 95.1 Sodium 138.0 Chloride 109.0 H Glucose 114 H Lactate 1.8 FiO2 40.0 40.0 Potassium Carbon Dioxide Anion Gap BUN Creatinine Est GFR ( Amer) Est GFR (Non-Af Amer) Random Glucose Calcium Phosphorus Magnesium Total Bilirubin AST ALT Alkaline Phosphatase Total Protein Albumin Globulin Albumin/Globulin Ratio Arterial Blood Potassium 3.6 09/20/18 06:40 WBC RBC Hgb Hct MCV MCH MCHC RDW Plt Count MPV pCO2 pO2 HCO3 ABG pH ABG Total CO2 ABG O2 Saturation ABG O2 Content ABG Base Excess ABG Hemoglobin ABG Carboxyhemoglobin POC ABG HHb (Measured) ABG Methemoglobin ABG O2 Capacity ABG Potassium Hgb O2 Saturation Sodium 137 Chloride 103 Glucose Lactate FiO2 Potassium 4.1 Carbon Dioxide 24 Anion Gap 14 BUN 76 H Creatinine 5.2 H Est GFR ( Amer) 10 Est GFR (Non-Af Amer) 8 Random Glucose 123 H Calcium 9.4 Phosphorus 5.1 H Magnesium 2.1 Total Bilirubin 0.6 AST 55 H ALT 41 Alkaline Phosphatase 80 Total Protein 5.4 L Albumin 2.7 L Globulin 2.7 Albumin/Globulin Ratio 1.0 L Arterial Blood Potassium Radiology Impressions: Radiology Impressions Chest X-Ray 09/20/18 06:00 IMPRESSION: Increasing right upper lobe infiltrate. No change in perihilar infiltrates or congestion Critical Care Progress Note - Nutrition Nutrition: Nutrition Category Date Time Status Heart Healthy Diet [DIET] Diets 09/13/18 Dinner Active Assessment/Plan - Assessment and Plan (Free Text) Plan: Patient seen and examined on rounds, with resident, agree with note with following additions/exceptions: Patient is 78yo female with PMhx of end stage COPD, CHF, severe pulm HTN, Breast Ca on chemo, admitted with multi organ failure. Currently awake, on BIPAP, afebrile, HD stable, comfortable in NAD Renal, Cardio, Pulm following Patients family had rescinded a DNR/DNI order yesterday Worsening renal function, HD cathter placed L femoral site, by the MICU team Palliative care following, family wants aggressive treatment Multi Organ failure Renal failure CAD/CABG CHF Pulm HTN Resp failure AMS Breast Ca Recommend: - cont with BIPAP as tolerated, duonebs PRN, monitor resp status closely - Abx, broad spectrum Vanco, Merrem, Zithromax - follow up cultures - would DC lasix - HD as per renal - follow up cardio, pulm - monitor LFTs - Solumedrol 40mg IV BID - FS control - GI ppx - DVT ppx, Lovenox - Monitor in CCU Critical care time 50 minutes Poor prognosis
[2018-09-20] MEDS: Mupirocin 2% Ointment 15 GM TUBE TOP SCH (09:33)
[2018-09-20] MEDS: Enoxaparin 30 mg Syringe SC SCH (09:33)
[2018-09-20] MEDS: POLYETHYLENE GLYCOL 3350 17 GM/Dose PACKET PO SCH ×2 (09:36→17:39)
--- NOTE | 2018-09-20 09:49 | RAD ---
Date of service: 09/20/2018 HISTORY: on Bipap COMPARISON: 09/18/2018 FINDINGS: LUNGS: Increasing right upper lobe infiltrate. No change in perihilar infiltrates or congestion PLEURA: No significant pleural effusion identified, no pneumothorax apparent. CARDIOVASCULAR: No aortic atherosclerotic calcification present. Normal cardiac size. No pulmonary vascular congestion. OSSEOUS STRUCTURES: Sternal wires VISUALIZED UPPER ABDOMEN: Normal. OTHER FINDINGS: None. IMPRESSION: Increasing right upper lobe infiltrate. No change in perihilar infiltrates or congestion
[2018-09-20] MEDS ORDERED: MethylPREDNISolone 40 mg Vial IVP SCH (10:00)
[2018-09-20] MEDS ORDERED: Mupirocin 2% Ointment 15 GM TUBE TOP SCH ×2 (10:00)
[2018-09-20] MEDS: Sildenafil 20 MG TAB PO SCH ×2 (10:00→17:40)
--- NOTE | 2018-09-20 11:12 | CP.PCM.PN ---
<Luis Manuel Montoya - Last Filed: 09/20/18 11:05> Subjective - Date & Time of Evaluation Date of Evaluation: 09/20/18 Time of Evaluation: 11:05 - Subjective Subjective: Podiatry Progress Note: Dr. Denson 78 y/o F patient seen and evaluated at bedside with posterior right heel wound. Patient was sleeping at the time of the visit. Yesterday patient developed respiratory distress and moved to the ICU. Patient was on BiPap mask at the visit time. Patient is poor historian and her family was at the bed side. As per her chart there was no overnight nausea/vomiting/fever. There is no other pedal complaint at this time. Objective - Vital Signs/Intake and Output Vital Signs (last 24 hours): Temp Pulse Resp BP Pulse Ox 98.3 F 73 14 116/57 L 95 09/20/18 06:00 09/20/18 09:36 09/20/18 06:00 09/20/18 09:36 09/20/18 06:00 Intake and Output: 09/20/18 09/20/18 06:59 18:59 Output Total 150 Balance -150 - Medications Medications: Current Medications Albuterol/Ipratropium (Duoneb 3 Mg/0.5 Mg (3 Ml) Ud) 3 ml IH Q1H PRN PRN Reason: Shortness of Breath Last Admin: 09/18/18 08:32 Dose: 3 ml Albuterol/Ipratropium (Duoneb 3 Mg/0.5 Mg (3 Ml) Ud) 3 ml IH [id number] [facility] Last Admin: 09/20/18 08:11 Dose: 3 ml Arformoterol Tartrate (Brovana) 15 mcg IH [id number] [facility] Last Admin: 09/20/18 08:11 Dose: 15 mcg Aspirin (Ecotrin) 81 mg PO DAILY [facility] Last Admin: 09/19/18 11:25 Dose: Not Given Atorvastatin Calcium (Lipitor) 20 mg PO DIN [facility] Last Admin: 09/19/18 18:01 Dose: Not Given Budesonide (Pulmicort Respules) 0.5 mg IH [id number] [facility] Last Admin: 09/20/18 08:11 Dose: 0.5 mg Doxycycline Hyclate (Doryx) 100 mg PO Q12 [facility]; Protocol Last Admin: 09/20/18 09:34 Dose: Not Given Enoxaparin Sodium (Lovenox) 30 mg SC DAILY [facility]; Protocol Last Admin: 09/20/18 09:33 Dose: 30 mg Escitalopram Oxalate (Lexapro) 10 mg PO DAILY [facility] Last Admin: 09/20/18 09:35 Dose: Not Given Famotidine (Pepcid) 20 mg PO HS [facility] Furosemide (Lasix) 40 mg IV DAILY [facility] Last Admin: 09/20/18 09:34 Dose: 40 mg Meropenem 250 mg/ Sodium (Chloride) 100 mls @ 100 mls/hr IVPB Q12H [facility]; Protocol Stop: 09/27/18 06:16 Last Admin: 09/20/18 07:15 Dose: 100 mls/hr Lidocaine HCl (Xylocaine 2%) 1 ea TOP DAILY [facility] Methylprednisolone (Solu-Medrol) 40 mg IVP Q12 [facility] Last Admin: 09/20/18 09:32 Dose: 40 mg Metoprolol Tartrate (Lopressor) 50 mg PO BID [facility] Last Admin: 09/20/18 09:36 Dose: Not Given Montelukast Sodium (Singulair) 10 mg PO HS [facility] Last Admin: 09/19/18 21:04 Dose: Not Given Mupirocin (Bactroban Ointment) 0 gm TOP DAILY [facility] Stop: 09/29/18 10:01 Last Admin: 09/20/18 09:33 Dose: 1 applic Oxycodone HCl (Oxycodone Immediate Release Tab) 10 mg PO Q6H PRN PRN Reason: Pain, moderate (4-7) Last Admin: 09/15/18 17:53 Dose: 10 mg Pantoprazole Sodium (Protonix Ec Tab) 40 mg PO 0600 [facility] Last Admin: 09/19/18 05:47 Dose: Not Given Pantoprazole Sodium (Protonix Inj) 40 mg IVP DAILY [facility] Last Admin: 09/20/18 09:32 Dose: 40 mg Polyethylene Glycol (Miralax) 17 gm PO BID [facility] Last Admin: 09/20/18 09:36 Dose: Not Given Pregabalin (Lyrica) 50 mg PO HS [facility] Last Admin: 09/19/18 21:03 Dose: Not Given Sildenafil Citrate (Revatio) 20 mg PO BID [facility] Last Admin: 09/19/18 18:01 Dose: Not Given Silver Sulfadiazine (Silvadene 1% 25 Gm) 0 gm TP DAILY [facility] Last Admin: 09/19/18 14:43 Dose: Not Given - Labs Labs: 09/20/18 06:40 09/20/18 06:40 - Constitutional Appears: In Acute Distress - Head Exam Head Exam: ATRAUMATIC - Extremities Exam Additional comments: RLE focused exam: Vasc: DP/PT pulses fully palpable 2/4 b/l. Skin temperature gradient warm to warm from proximal to distal. Cap refill < 3 seconds to all digits b/l. No edema noted b/l Neuro: Gross and protective sensation grossly intact b/l. Derm: Posterior right heel ulceration measuring 2.3 cm X 1.7 cm with 10% fibrotic and 90% granular base, superficial, negative probe to bone, positive isabel-wound erythema, positive mild sero-sanguinous drainage, No other open lesions, wounds, maceration, xerosis, abnormal pigmentation or abnormal growths noted b/l. MSK: No Pain with palpation of ulcerative site. B/l HAV deformities noted. No other gross deformities noted. ROM WNL to all major joints b/l. MMT 5/5 in all major muscle groups b/l. Assessment and Plan - Assessment and Plan (Free Text) Assessment: 78 y/o F patient with posterior right heel ulceration. Plan: Patient seen and evaluated Discussed with attending Dr. Denson Charts, labs and vitals reviewed; Afebrile,absent leukocytosis Wound Culture: Coag neg staph Right Heel X-ray: no signs of OM R MRI; bone marrow edema in calcaneus without evidence of cortical destruction or erosion likely represent bone marrow reaction, possibility of OM less likely Right heel wound cleaned with saline, and dressed with adaptic, maxorb, DSD Patient to wear Multipodus boots at all times while in bed ID consulted; per ID reccs continue Vancomycin and Cefepime and Doxycycline day 4; PCT is only 0.24, urine Legionella Ag is negative, will continue to monitor clinically, target 4-7 days of antibiotics Podiatry will continue to follow up patient while in house <Angel Denson - Last Filed: 09/22/18 17:15> Objective - Vital Signs/Intake and Output Vital Signs (last 24 hours): Temp Pulse Resp BP Pulse Ox 99 F 90 26 H 129/76 98 09/22/18 12:00 09/22/18 16:00 09/22/18 12:30 09/22/18 14:00 09/22/18 12:30 Intake and Output: 09/22/18 09/22/18 06:59 18:59 Intake Total 100 Output Total 1000 Balance -900 - Medications Medications: Current Medications Albuterol/Ipratropium (Duoneb 3 Mg/0.5 Mg (3 Ml) Ud) 3 ml IH Q1H PRN PRN Reason: Shortness of Breath Last Admin: 09/18/18 08:32 Dose: 3 ml Albuterol/Ipratropium (Duoneb 3 Mg/0.5 Mg (3 Ml) Ud) 3 ml IH [id number] [facility] Last Admin: 09/22/18 13:07 Dose: 3 ml Arformoterol Tartrate (Brovana) 15 mcg IH [id number] [facility] Last Admin: 09/22/18 07:37 Dose: 15 mcg Aspirin (Ecotrin) 81 mg PO DAILY [facility] Last Admin: 09/22/18 12:48 Dose: 81 mg Atorvastatin Calcium (Lipitor) 20 mg PO DIN [facility] Last Admin: 09/20/18 17:39 Dose: Not Given Budesonide (Pulmicort Respules) 0.5 mg IH [id number] [facility] Last Admin: 09/21/18 20:13 Dose: 0.5 mg Digoxin (Lanoxin) 0.25 mg IVP ONCE ONE Stop: 09/22/18 19:01 Doxycycline Hyclate (Doryx) 100 mg PO Q12 [facility]; Protocol Last Admin: 09/22/18 10:06 Dose: Not Given Enoxaparin Sodium (Lovenox) 30 mg SC DAILY [facility]; Protocol Last Admin: 09/22/18 10:09 Dose: 30 mg Escitalopram Oxalate (Lexapro) 10 mg PO DAILY [facility] Last Admin: 09/22/18 10:06 Dose: Not Given Famotidine (Pepcid) 20 mg PO HS [facility] Last Admin: 09/21/18 22:05 Dose: Not Given Meropenem 250 mg/ Sodium (Chloride) 100 mls @ 100 mls/hr IVPB Q12H [facility]; P rotocol Stop: 09/27/18 06:16 Last Admin: 09/22/18 05:59 Dose: 100 mls/hr Lidocaine HCl (Xylocaine 2%) 1 ea TOP DAILY [facility] Last Admin: 09/22/18 10:10 Dose: 1 applic Methylprednisolone (Solu-Medrol) 40 mg IVP Q12 [facility] Last Admin: 09/22/18 10:13 Dose: 40 mg Metoprolol Tartrate (Lopressor) 50 mg PO BID [facility] Last Admin: 09/21/18 17:28 Dose: Not Given Montelukast Sodium (Singulair) 10 mg PO HS [facility] Last Admin: 09/21/18 22:10 Dose: Not Given Mupirocin (Bactroban Ointment) 0 gm TOP DAILY [facility] Stop: 09/29/18 10:01 Last Admin: 09/22/18 10:06 Dose: 1 applic Pantoprazole Sodium (Protonix Inj) 40 mg IVP DAILY [facility] Polyethylene Glycol (Miralax) 17 gm PO BID [facility] Last Admin: 09/22/18 10:09 Dose: Not Given Pregabalin (Lyrica) 50 mg PO HS [facility] Last Admin: 09/21/18 22:20 Dose: Not Given Sildenafil Citrate (Revatio) 20 mg PO BID [facility] Last Admin: 09/22/18 12:47 Dose: 20 mg Silver Sulfadiazine (Silvadene 1% 25 Gm) 0 gm TP DAILY [facility] Last Admin: 09/22/18 10:11 Dose: 25 gm Verapamil HCl (Verapamil Inj) 2.5 mg IVP Q6H PRN PRN Reason: For heart rate >120 - Labs Labs: 09/22/18 06:50 09/22/18 06:50 Attending/Attestation - Attestation I have personally seen and examined this patient.: Yes I have fully participated in the care of the patient.: Yes I have reviewed all pertinent clinical information, including history, physical exam and plan: Yes
--- NOTE | 2018-09-20 11:53 | PN ---
DATE: 09/20/2018 SUBJECTIVE: The patient appears comfortable this morning. She is now in the ICU. She is not short of breath at rest. PHYSICAL EXAMINATION: VITAL SIGNS: Temperature 98.3, pulse 70, respirations 16, blood pressure 151/64. Oxygen saturation on BiPAP is 95%. HEENT: Normocephalic, atraumatic. NECK: No JVD. CARDIOVASCULAR: Systolic ejection murmur at the lower left sternal border. No S3 gallop. LUNGS: Decreased breath sounds at the bases. Less rhonchi. No wheezing. EXTREMITIES: Mild edema. No cyanosis. No clubbing. Calves are nontender to palpation. GI: Abdomen is soft, nontender and nondistended. Bowel sounds are positive. SKIN: Multiple ecchymotic areas - arms. Multiple sacral decubiti. The right foot remains wrapped. NEUROLOGIC: Exam limited at the present time. PERTINENT LABORATORY DATA: Chest x-ray was done this morning and reviewed. There is moderate pulmonary vascular congestion noted. There also appears to be a new infiltrate noted in the right upper lobe. Arterial blood gas was done on the BiPAP. Results are: pH 7.42, pCO2 of 31, pO2 of 77. IMPRESSION: 1. Advanced chronic obstructive pulmonary disease. 2. Congestive heart failure. 3. Rule out hospital-acquired pneumonia. 4. Pulmonary hypertension. 5. Worsening sacral decubitus. 6. Breast cancer. 7. Peripheral vascular disease. 8. Failure to thrive. PLAN: The patient appears comfortable this morning. She is now in the ICU. She is not short of breath at rest. She is awake and alert. I did discuss the case with the night nurse at length. The night nurse stated that the patient was transferred to the medical ICU last night for respiratory distress. I did review the chest x-ray as above. The chest x-ray remains with moderate pulmonary vascular congestion. However, as above, it also appears that there is a small patchy infiltrate now in the right upper lobe. I would continue with the antibiotic coverage as per Infectious Disease. Input by Dr. Levine is noted. There are no temperatures noted. There is no leukocytosis. I have also reviewed the arterial blood gas. The arterial blood gas is improved - with normalization of the pH. However, there is a moderately severe alveolar-arterial gradient. We will continue with the BiPAP for now. On physical exam, there is less bronchospasm noted. I will continue with the current nebulizer treatments and try decreasing the intravenous steroids this morning. Input by Cardiology is also noted. I did discuss the case with Dr. Welsh yesterday. The patient remains on intravenous Lasix. Additional repeat a.m. labs are pending. The patient is critically ill at this point in time, with very guarded/poor prognosis. I will discuss the above with the entire ICU team in the next few moments. I will discuss the above with the attending physician later this morning. Anthony Hameed MD MTDD
--- NOTE | 2018-09-20 13:19 | CP.PCM.PN ---
Subjective - Date & Time of Evaluation Date of Evaluation: 09/19/18 Time of Evaluation: 08:40 - Subjective Subjective: Noted events overnight, patient became moree dyspneic and lethargic and is now in the ICU on BiPAP for closer observation. No fevers noted. Patient still somewhat lethargic. Objective - Vital Signs/Intake and Output Vital Signs (last 24 hours): Temp Pulse Resp BP Pulse Ox 97.8 F 65 18 128/72 96 09/18/18 06:00 09/18/18 09:55 09/18/18 06:00 09/18/18 09:55 09/18/18 06:00 Intake and Output: 09/18/18 09/18/18 06:59 18:59 Output Total 200 Balance -200 - Medications Medications: Current Medications Albuterol/Ipratropium (Duoneb 3 Mg/0.5 Mg (3 Ml) Ud) 3 ml IH Q1H PRN PRN Reason: Shortness of Breath Last Admin: 09/18/18 08:32 Dose: 3 ml Albuterol/Ipratropium (Duoneb 3 Mg/0.5 Mg (3 Ml) Ud) 3 ml IH [id number] [facility] Last Admin: 09/18/18 11:55 Dose: 3 ml Arformoterol Tartrate (Brovana) 15 mcg IH [id number] [facility] Last Admin: 09/18/18 07:34 Dose: 15 mcg Aspirin (Ecotrin) 81 mg PO DAILY [facility] Last Admin: 09/18/18 09:55 Dose: 81 mg Atorvastatin Calcium (Lipitor) 20 mg PO DIN [facility] Last Admin: 09/17/18 17:05 Dose: 20 mg Budesonide (Pulmicort Respules) 0.5 mg IH [id number] [facility] Last Admin: 09/18/18 07:35 Dose: 0.5 mg Cyclobenzaprine HCl (Flexeril) 5 mg PO BID [facility] Last Admin: 09/18/18 09:56 Dose: 5 mg Doxycycline Hyclate (Doryx) 100 mg PO Q12 [facility]; Protocol Last Admin: 09/18/18 09:55 Dose: 100 mg Enoxaparin Sodium (Lovenox) 30 mg SC DAILY [facility]; Protocol Last Admin: 09/18/18 09:56 Dose: 30 mg Escitalopram Oxalate (Lexapro) 10 mg PO DAILY [facility] Last Admin: 09/18/18 09:55 Dose: 10 mg Famotidine (Pepcid) 20 mg PO 1000,2200 [facility] Last Admin: 09/18/18 09:54 Dose: 20 mg Cefepime HCl (Maxipime 1gm) 1 gm in 100 mls @ 100 mls/hr IVPB Q8 [facility]; Protocol Last Admin: 09/18/18 05:57 Dose: 100 mls/hr Lidocaine HCl (Xylocaine 2% (Uro-Jet)) 1 ea TOP DAILY [facility] Last Admin: 09/18/18 09:58 Dose: 1 ea Methylprednisolone (Solu-Medrol) 40 mg IVP Q8H [facility] Last Admin: 09/18/18 09:57 Dose: 40 mg Metoprolol Tartrate (Lopressor) 50 mg PO BID [facility] Last Admin: 09/18/18 09:55 Dose: 50 mg Montelukast Sodium (Singulair) 10 mg PO HS [facility] Last Admin: 09/17/18 22:48 Dose: 10 mg Oxycodone HCl (Oxycodone Immediate Release Tab) 10 mg PO Q6H PRN PRN Reason: Pain, moderate (4-7) Last Admin: 09/15/18 17:53 Dose: 10 mg Pantoprazole Sodium (Protonix Ec Tab) 40 mg PO 0600 [facility] Last Admin: 09/18/18 05:58 Dose: 40 mg Polyethylene Glycol (Miralax) 17 gm PO BID [facility] Last Admin: 09/18/18 09:56 Dose: 17 gm Pregabalin (Lyrica) 50 mg PO [facility] Last Admin: 09/17/18 22:47 Dose: 50 mg Sildenafil Citrate (Revatio) 20 mg PO BID [facility] Last Admin: 09/18/18 09:55 Dose: 20 mg Silver Sulfadiazine (Silvadene 1% 25 Gm) 0 gm TP DAILY [facility] Last Admin: 09/17/18 10:59 Dose: 25 gm - Labs Labs: 09/18/18 07:00 09/18/18 07:00 - Constitutional Appears: Chronically Ill, Other (on BiPAP) - Head Exam Head Exam: NORMAL INSPECTION - Respiratory Exam Respiratory Exam: Decreased Breath Sounds, Rales (scattered) - Cardiovascular Exam Cardiovascular Exam: +S1, +S2 - GI/Abdominal Exam GI & Abdominal Exam: Soft. absent: Tenderness Assessment and Plan - Assessment and Plan (Free Text) Plan: Assessment consider bilateral healthcare-associated pneumonia in this patient with w orsening respiratory failure probably combination of vascular congestion from worsening renal failure S/P UTI with E. coli, uncomplicated. probably cystitis thoracic vertebral compression fractures S/P kyphoplasty COPD chronic renal failure pulmonary HTN PVD GERD Plan gave another dose of Vancomycin and will switch Cefepime to Merrem and continue Doxycycline and will repeat cultures; urine Legionella Ag is negative will continue to monitor clinically overall prognosis is poor follow up further recommendations of Renal
--- NOTE | 2018-09-20 13:54 | PCM.PROC ---
Procedures Attestation:: I certify that I have explained the specified Operation(s) or Procedure(s), risks, benefits and reasonable alternatives to the Patient and/or other person responsible. The opportunity was given to ask questions and all questions answered - Central Line Placement Left Femoral Hemodialysis Access Aseptic technique was employed throughout the procedure: Hand Hygiene done prior to procedure, Full sterile barriers (mask, hair cover, sterile gown, sterile gloves), Full body sterile drape, Chloraprep Antiseptic: 2 minute prep for Femoral CVP Time Out Performed: No Pt. Placed on Pulse Ox Monitor: Yes Local Anesthesia Used: Lidocaine 1% Ultrasound Used for Placement: Yes Central Line Lumen Inserted: triple Central Line Length: 20 cm Post Procedure: Sutured in Place, Good Blood Return, All Ports Aspirated, Flushed, Capped, Sterile Dressing Applied Secured by: Suture Post procedure dressing: Chlorhexidine disc (Biopatch) Post Procedure X-Ray: No Patient Tolerated Procedure: Well Immediate Complications: None
--- NOTE | 2018-09-20 14:53 | PN ---
DATE: 09/20/2018 SUBJECTIVE: The patient is 78-year-old, seen and examined, currently on BiPAP. Family was at bedside. She was hypoxic, so placed on BiPAP, seems to be doing well from a respiratory point of view. PHYSICAL EXAMINATION VITAL SIGNS: She is afebrile. Pulse 70, respirations 14, and blood pressure 116/57. LUNGS: Bilateral clear airflow. Few expiratory rhonchi and crackle heard in lower lung region. HEART: S1 and S2 audible. ABDOMEN: Soft and nontender. No rebound. No guarding. NEUROLOGIC: The patient is lethargic. EXTREMITIES: Bilateral legs, +1 edema. LABORATORY DATA: WBC 9.2, hemoglobin 9.3, hematocrit 29.3 and platelets of 220. Chemistry; sodium 137, potassium 4.1, chloride 103, CO2 of 24, BUN 76, creatinine 5.2 and blood sugar of 123. X-ray chest shows increasing right upper lobe infiltrate. No change in perihilar infiltrate or congestion. ASSESSMENT: 1. Acute renal failure. 2. Bilateral pulmonary infiltrate. 3. History of carcinoma of breast. 4. History of hypertension. 5. Chronic obstructive pulmonary disease. 6. Multiple kyphoplasties. PLAN: Currently, she is on nebulizer treatment. She is on IV antibiotics. She is on doxycycline. She is on DVT prophylaxis. She is getting meropenem. She is on BiPAP and she is on Protonix. I spoke to commercial sales consultant, probably the patient is in need of getting hemodialysis. The patient's family is agreeable. There is DNR yesterday, right now the patient is full code. Charla Inman MD
--- NOTE | 2018-09-20 14:55 | PN ---
DATE: 09/20/2018 REASON FOR CONSULTATION AND FOLLOWUP: Cardiac evaluation, rule out CHF, shortness of breath, critically ill. SUBJECTIVE: Her niece is at the bedside. The patient is on CPAP, agonally breathing. PHYSICAL EXAMINATION: VITAL SIGNS: Temperature is afebrile. Heart rate 73, blood pressure 116/57. HEENT: PERRLA. Extraocular muscles intact. NECK: Supple. No carotid bruit. No thyromegaly. CHEST: Clear to auscultation. HEART: S1, S2. Regular. ABDOMEN: Soft. EXTREMITIES: Clubbing and cyanosis negative. LABORATORY DATA: Blood workup, WBC 9.6, hemoglobin 9.7, hematocrit 29.3, platelet count 220. Chemistry show, sodium 137, potassium 4, chloride 103, carbon dioxide 24, anion gap of 14, BUN 76, creatinine 5.2. Protein 5.4, albumin 2.7, albumin-globulin ratio 1. IMPRESSION: A 78-year-old female with a past medical history significant for coronary artery disease, status post coronary artery bypass in 2012 after cardiac catheterization has revealed critical disease in diagonal 1 and left anterior descending which is not suitable for percutaneous coronary intervention. After cardiac catheterization, the patient was referred for open heart surgery. At this time, the patient admitted with pneumonia, multiorgan dysfunction, protein-calorie malnutrition, moderate , not present on admission, rising BUN and creatinine, acute kidney injury, respiratory insufficiency, congestive heart failure secondary to fluid overload, elevated brain natriuretic peptide and worsening renal insufficiency. PLAN: Discussed with her daughter, the patient last night moved to the ICU. The patient had her last echo 07/03/2018 that shows ejection fraction 55% to 60%, moderate aortic regurgitation, [id number] tricuspid regurgitation, RV systolic pressure 57, trace pulmonary insufficiency, ejection fraction 55% to 60% on 07/03/2018. The patient had also cardiac catheterization, right heart, for pulmonary hypertension, upper limit normal. Right heart pressure with pulmonary vascular resistance was elevated on the ratio. Discussed with three daughters yesterday, discussed with her niece today and then on telephone discussed with daughter. Overall, the patient's condition is critical. Prognosis is extremely poor, Discussed with the family. The patient was a DNR/DNI. Yesterday, family decided DNR. Explained the patient's condition and a grime prognosis. We will discuss with Dr. Inman. Apparently, it looks like odd they are behaving that unaware of the patient's prognosis, but I talked multiple times and Dr. Inman also said that she talked yesterday about the patient's condition. Also suggest to follow up with Juliana Jasmine for family to discuss about the patient's condition and prognosis and option. Continue supportive care, continue gentle diuretics. Overall, the patient is critical. Continue noninvasive ventilator. Bibi Welsh MD
[2018-09-20] MEDS: Silver Sulfadiazine 1% Cream (25 gm) TP SCH (18:43)
--- NOTE | 2018-09-20 19:55 | PN ---
DATE: 09/20/2018 SUBJECTIVE: The patient is seen in the ICU. She is on BiPAP. She is lethargic. She is minimally responsive. Multiple family members are at bedside. She was transferred to the ICU because of increased lethargy, multiorgan dysfunction, respiratory failure. She seems to be doing okay on BiPAP. Her pH was 7.4 this morning, pCO2 was 31 and pO2 was 77. She is oligoanuric. Her urine output was 450 mL for 24 hours. Her renal function seems to be deteriorating. Her creatinine is 5.2 today. It has been rising by 1 g for the last 72 hours.. PHYSICAL EXAMINATION: GENERAL: Elderly lady, lying in bed in the ICU on BiPAP. VITAL SIGNS: Blood pressure 160/57, heart rate 73, respiratory rate 12 to 14, temperature 98.3. HEENT: Normocephalic and atraumatic. Positive pallor. No icterus. NECK: Supple. No JVD. LUNGS: Bilateral rhonchi. Bilateral expiratory wheeze. Equal expansion. CARDIAC: S1 and S2. Regular rate rhythm. No murmur. No rub. ABDOMEN: Distended, soft, nontender. Bowel sounds present. EXTREMITIES: No lower extremity edema. No clubbing, no cyanosis. INTAKE AND OUTPUT: Not charted. LABORATORY DATA: WBC 9.2, hemoglobin 9.3, hematocrit 29.3, platelets 220. Sodium 137, potassium 4.1, chloride 103, CO2 of 24, BUN 76, creatinine 5.2, glucose 123, calcium 9.4, phosphorus 5.1 magnesium 2.1. AST 55, ALT 41, albumin 2.7. Urinalysis: Yellow, slightly cloudy, pH 6, specific gravity 1.020, protein negative, glucose negative, ketones negative, blood trace, leukocyte esterase trace, urine eosinophils negative. Chest x-ray: New right upper lobe infiltrate, perihilar infiltrates and congestion. CURRENT MEDICATIONS: Brovana, doxycycline 100 mg every 12 hours, DuoNeb, Ecotrin, Lasix on hold, Lexapro, Lipitor 20 mg, Lopressor 50 mg b.i.d., Lovenox 30 mg, Lyrica 50 mg, meropenem 250 mg every 12 hours, Pepcid 20 mg, Protonix 40 mg, Revatio 20 mg b.i.d. not given, Singulair, Solu-Medrol, vancomycin 1 g given this morning. ASSESSMENT AND PLAN: 1. Acute kidney injury, worsening renal parameters. Creatinine rising 1 g everyday, this is consistent with renal function less than 10 mL per minute. 2. Coronary artery disease, history of coronary artery bypass graft. 3. Severe chronic obstructive pulmonary disease. 4. Multilobar pneumonia. 5. Severe pulmonary hypertension. 6. Right lower extremity cellulitis. 7. Stage IV metastatic breast cancer. 8. Anemia of chronic disease. PLAN: 1. Case discussed with family members at length. The patient's family wants the patient to receive dialysis. They understand that her prognosis is quite poor, but they would like trial of dialysis. Central catheter was placed earlier. We will start dialysis now. 2. Continue antibiotics for multilobar pneumonia. 3. Continue to monitor closely in the ICU setting. 4. Case discussed with ICU residents. Case discussed with printer operator. Case discussed with family members at bedside. Case discussed with dialysis nursing staff. The patient will need dialysis again tomorrow. More than 35 minutes were spent in the care of this critically ill patient. Mayelin Paul MD
[2018-09-20 21:30] LABS: HEPATITIS B SURFACE AG Negative (NEGATIVE)
[2018-09-20 21:35] LABS: HEPATITIS B CORE AB NEGATIVE (NEGATIVE)
[2018-09-21 05:24] LABS: ARTERIAL BLOOD GAS HCO3 21.8 mmol/L (21-28); ARTERIAL BLOOD GAS HEMOGLOBIN 7.7 g/dL (11.7-17.4); ARTERIAL BLOOD GAS O2 CAPACITY 10.7 mL/dl (16-24); ARTERIAL BLOOD GAS O2 CONTENT 10.4 ML/dl (15-23); ARTERIAL BLOOD GAS O2 SAT 97.5 % (95-98); ARTERIAL BLOOD GAS PCO2 28 mm/Hg (35-45); ARTERIAL BLOOD GAS TCO2 22.7 mmol.L (22-28)
[2018-09-21 07:03] LABS: HEMOGLOBIN 7.6 g/dL (12.0-16.0); LYMPH # 0.2 (1.2-3.4); LYMPH % 2.1 % (22.0-35.0); MEAN CELL VOLUME 91.5 fl (80.0-105.0); MEAN CORPUSCULAR HEMOGLOBIN 29.5 pg (25.0-35.0); MEAN CORPUSCULAR HGB CONC 32.2 g/dl (31.0-37.0); MEAN PLATELET VOLUME 10.3 fl (7.0-11.0); MONO # 0.2 (0.1-0.6); MONO % 1.6 % (1.0-6.0); RBC 2.58 10^6/uL (3.5-6.1); RED CELL DISTRIBUTION WIDTH 16.9 % (11.5-14.5); WHITE BLOOD COUNT 9.9 10^3/uL (4.5-11.0)
[2018-09-21 07:26] LABS: ALB/GLOB RATIO 0.9 (1.1-1.8); ALBUMIN 2.2 g/dL (3.0-4.8); CALCIUM 8.9 mg/dL (8.4-10.5)
[2018-09-21] MEDS: Budesonide 0.5 mg/2 ml Inhal Susp UD IH SCH ×2 (07:40→20:13)
[2018-09-21] MEDS: Arformoterol 15 mcg/2 ml Inh Sol IH SCH ×2 (07:40→20:12)
[2018-09-21] MEDS: Albuterol-Ipratrop 3 mg / 0.5 (3 ml) UD IH SCH ×3 (07:41→20:13)
[2018-09-21] MEDS ORDERED: MethylPREDNISolone 40 mg Vial IVP SCH (10:00)
--- NOTE | 2018-09-21 10:04 | PN ---
DATE: 09/21/2018(650am-745am) SUBJECTIVE: The patient appears comfortable this morning. She is more awake and alert. She is mildly short of breath, but in no acute distress. PHYSICAL EXAMINATION: VITAL SIGNS: Temperature is 97.4, pulse is 70, respirations 20/22, blood pressure 123/58. Oxygen saturation on BiPap is 94%. HEENT: Normocephalic, atraumatic. No JVD. CARDIOVASCULAR: Systolic ejection murmur at the lower left sternal border. No S3 gallop. LUNGS: Decreased breath sounds at the bases. Minimal/less rhonchi. No wheezing. EXTREMITIES: Mild edema. No cyanosis, no clubbing. Calves are nontender to palpation. GASTROINTESTINAL: Abdomen is soft, nontender, nondistended. Bowel sounds are positive. SKIN: Multiple ecchymotic areas - arms. Multiple sacral decubiti. The right foot remains wrapped. NEUROLOGIC: Exam limited at the present time. PERTINENT LABORATORY DATA: Chest x-ray was done this morning and reviewed. The chest x-ray appears improved today. There is less pulmonary vascular congestion. In addition, the right upper lobe infiltrate has decreased in size and denseness. Official results are pending. Arterial blood gas was done on BiPap with 40% oxygen. Results are: PH 7.50, pCO2 of 28, pO2 of 75. IMPRESSION: 1. Advanced chronic obstructive pulmonary disease. 2. Congestive heart failure. 3. Possible pneumonia - right upper lobe. 4. Pulmonary hypertension. 5. Worsening sacral decubitus. 6. Breast cancer. 7. Peripheral vascular disease. 8. Failure to thrive. 9. Renal insufficiency. PLAN: The patient appears more comfortable this morning. She is mildly short of breath, but in no acute distress. She is awake and alert. I did discuss the case with the night nurse and family (at bedside) at length. She certainly appears improved - compared to a few days ago. I did review the chest x-ray as above. The chest x-ray appears improved with decreased pulmonary vascular congestion. There is also a decrease in the size and denseness of the right upper lobe infiltrate. Official results are pending. The patient did receive ultrafiltration yesterday. Renal input is noted. I have also reviewed the arterial blood gas. There is a mixed acid-base disturbance with a decrease in the alveolar-arterial gradient. We will try the patient off BiPap this morning. Clinical status of the patient is certainly improved - compared to a few days ago. However, she does remain critically ill with very guarded prognosis. I will discuss the above with the entire ICU team in the next few moments. I will also discuss the above with the attending physician later this morning. Anthony Hameed MD MTDD
--- NOTE | 2018-09-21 10:29 | RAD ---
Date of service: 09/21/2018 HISTORY: on Bipap COMPARISON: 09/20/2018 FINDINGS: LUNGS: Chronic interstitial changes are seen. There improvement in the right upper lobe infiltrate seen previously. PLEURA: No significant pleural effusion identified, no pneumothorax apparent. CARDIOVASCULAR: Aortic calcification Normal cardiac size. No pulmonary vascular congestion. OSSEOUS STRUCTURES: No significant abnormalities. VISUALIZED UPPER ABDOMEN: Normal. OTHER FINDINGS: None. IMPRESSION: Chronic interstitial changes are seen. There improvement in the right upper lobe infiltrate seen previously.
[2018-09-21] MEDS: Lidocaine 2% Jelly (30 ml) TOP SCH (11:00)
--- NOTE | 2018-09-21 11:59 | CP.PCM.PN ---
<Luis Manuel Montoya - Last Filed: 09/21/18 11:55> Subjective - Date & Time of Evaluation Date of Evaluation: 09/21/18 Time of Evaluation: 11:55 - Subjective Subjective: Podiatry Progress Note: Dr. Denson 78 y/o F patient seen and evaluated at bedside with posterior right heel wound. Patient was sleeping at the time of the visit. Patient is still inn the ICU and was on Hemodyalisis session during the visit. Patient is poor historian and her daughter was at the bed side. As per her chart there was no overnight nausea/vomiting/fever. There is no other pedal complaint at this time. Objective - Vital Signs/Intake and Output Vital Signs (last 24 hours): Temp Pulse Resp BP Pulse Ox 98.2 F 97 H 24 116/51 L 96 09/21/18 04:00 09/21/18 07:50 09/21/18 10:19 09/21/18 05:29 09/21/18 07:50 - Medications Medications: Current Medications Albuterol/Ipratropium (Duoneb 3 Mg/0.5 Mg (3 Ml) Ud) 3 ml IH Q1H PRN PRN Reason: Shortness of Breath Last Admin: 09/18/18 08:32 Dose: 3 ml Albuterol/Ipratropium (Duoneb 3 Mg/0.5 Mg (3 Ml) Ud) 3 ml IH [id number] [facility] Last Admin: 09/21/18 07:41 Dose: 3 ml Arformoterol Tartrate (Brovana) 15 mcg IH [id number] [facility] Last Admin: 09/21/18 07:40 Dose: 15 mcg Aspirin (Ecotrin) 81 mg PO DAILY [facility] Last Admin: 09/20/18 10:00 Dose: Not Given Atorvastatin Calcium (Lipitor) 20 mg PO DIN [facility] Last Admin: 09/20/18 17:39 Dose: Not Given Budesonide (Pulmicort Respules) 0.5 mg IH [id number] [facility] Last Admin: 09/21/18 07:40 Dose: 0.5 mg Doxycycline Hyclate (Doryx) 100 mg PO Q12 [facility]; Protocol Last Admin: 09/20/18 22:48 Dose: Not Given Enoxaparin Sodium (Lovenox) 30 mg SC DAILY [facility]; Protocol Last Admin: 09/20/18 09:33 Dose: 30 mg Escitalopram Oxalate (Lexapro) 10 mg PO DAILY [facility] Last Admin: 09/20/18 09:35 Dose: Not Given Famotidine (Pepcid) 20 mg PO HS [facility] Last Admin: 09/20/18 22:17 Dose: Not Given Meropenem 250 mg/ Sodium (Chloride) 100 mls @ 100 mls/hr IVPB Q12H [facility]; Protocol Stop: 09/27/18 06:16 Last Admin: 09/21/18 06:17 Dose: 100 mls/hr Lidocaine HCl (Xylocaine 2%) 1 ea TOP DAILY [facility] Methylprednisolone (Solu-Medrol) 40 mg IVP DAILY [facility] Last Admin: 09/21/18 09:35 Dose: 40 mg Metoprolol Tartrate (Lopressor) 50 mg PO BID [facility] Last Admin: 09/20/18 19:48 Dose: Not Given Montelukast Sodium (Singulair) 10 mg PO [facility] Last Admin: 09/20/18 22:49 Dose: Not Given Mupirocin (Bactroban Ointment) 0 gm TOP DAILY [facility] Stop: 09/29/18 10:01 Last Admin: 09/20/18 09:33 Dose: 1 applic Oxycodone HCl (Oxycodone Immediate Release Tab) 10 mg PO Q6H PRN PRN Reason: Pain, moderate (4-7) Last Admin: 09/15/18 17:53 Dose: 10 mg Pantoprazole Sodium (Protonix Inj) 40 mg IVP DAILY [facility] Last Admin: 09/21/18 09:20 Dose: 40 mg Polyethylene Glycol (Miralax) 17 gm PO BID [facility] Last Admin: 09/20/18 17:39 Dose: Not Given Pregabalin (Lyrica) 50 mg PO [facility] Last Admin: 09/20/18 22:48 Dose: Not Given Sildenafil Citrate (Revatio) 20 mg PO BID [facility] Last Admin: 09/20/18 17:40 Dose: Not Given Silver Sulfadiazine (Silvadene 1% 25 Gm) 0 gm TP DAILY [facility] Last Admin: 09/20/18 18:43 Dose: 25 gm - Labs Labs: 09/21/18 06:50 09/21/18 06:50 - Head Exam Head Exam: ATRAUMATIC - Extremities Exam Additional comments: RLE focused exam: Vasc: DP/PT pulses fully palpable 2/4 b/l. Skin temperature gradient warm to warm from proximal to distal. Cap refill < 3 seconds to all digits b/l. No edema noted b/l Neuro: Gross and protective sensation grossly intact b/l. Derm: Posterior right heel ulceration measuring 2.1 cm X 1.5 cm with 10% fibrotic and 90% granular base, superficial, negative probe to bone, mild isabel- wound erythema, positive mild serous drainage, No other open lesions, wounds, maceration, xerosis, abnormal pigmentation or abnormal growths noted b/l. Erythema noted over her right HAV medial eminence. MSK: B/l HAV deformities noted. No other gross deformities noted. ROM WNL to all major joints b/l. MMT 5/5 in all major muscle groups b/l. Assessment and Plan - Assessment and Plan (Free Text) Assessment: 78 y/o F patient with posterior right heel ulceration. Plan: Patient seen and evaluated Discussed with attending Dr. Denson Charts, labs and vitals reviewed; Afebrile,absent leukocytosis Wound Culture: Coag neg staph Right Heel X-ray: no signs of OM R MRI; bone marrow edema in calcaneus without evidence of cortical destruction or erosion likely represent bone marrow reaction, possibility of OM less likely Patient to wear Multipodus boots at all times while in bed ID consulted; Reccs appreciated. Continue IV abx as per ID Wound cleansed with saline then dressed with xeroform and optifoam. Applied optifoam over the Right HAV medial eminence. Podiatry will continue to follow up patient while in house <Angel Denson - Last Filed: 09/22/18 17:13> Objective - Vital Signs/Intake and Output Vital Signs (last 24 hours): Temp Pulse Resp BP Pulse Ox 99 F 90 26 H 129/76 98 09/22/18 12:00 09/22/18 16:00 09/22/18 12:30 09/22/18 14:00 09/22/18 12:30 Intake and Output: 09/22/18 09/22/18 06:59 18:59 Intake Total 100 Output Total 1000 Balance -900 - Medications Medications: Current Medications Albuterol/Ipratropium (Duoneb 3 Mg/0.5 Mg (3 Ml) Ud) 3 ml IH Q1H PRN PRN Reason: Shortness of Breath Last Admin: 09/18/18 08:32 Dose: 3 ml Albuterol/Ipratropium (Duoneb 3 Mg/0.5 Mg (3 Ml) Ud) 3 ml IH [id number] [facility] Last Admin: 09/22/18 13:07 Dose: 3 ml Arformoterol Tartrate (Brovana) 15 mcg IH [id number] [facility] Last Admin: 09/22/18 07:37 Dose: 15 mcg Aspirin (Ecotrin) 81 mg PO DAILY [facility] Last Admin: 09/22/18 12:48 Dose: 81 mg Atorvastatin Calcium (Lipitor) 20 mg PO DIN [facility] Last Admin: 09/20/18 17:39 Dose: Not Given Budesonide (Pulmicort Respules) 0.5 mg IH [id number] [facility] Last Admin: 09/21/18 20:13 Dose: 0.5 mg Digoxin (Lanoxin) 0.25 mg IVP ONCE ONE Stop: 09/22/18 19:01 Doxycycline Hyclate (Doryx) 100 mg PO Q12 [facility]; Protocol Last Admin: 09/22/18 10:06 Dose: Not Given Enoxaparin Sodium (Lovenox) 30 mg SC DAILY [facility]; Protocol Last Admin: 09/22/18 10:09 Dose: 30 mg Escitalopram Oxalate (Lexapro) 10 mg PO DAILY [facility] Last Admin: 09/22/18 10:06 Dose: Not Given Famotidine (Pepcid) 20 mg PO HS [facility] Last Admin: 09/21/18 22:05 Dose: Not Given Meropenem 250 mg/ Sodium (Chloride) 100 mls @ 100 mls/hr IVPB Q12H [facility]; Protocol Stop: 09/27/18 06:16 Last Admin: 09/22/18 05:59 Dose: 100 mls/hr Lidocaine HCl (Xylocaine 2%) 1 ea TOP DAILY [facility] Last Admin: 09/22/18 10:10 Dose: 1 applic Methylprednisolone (Solu-Medrol) 40 mg IVP Q12 [facility] Last Admin: 09/22/18 10:13 Dose: 40 mg Metoprolol Tartrate (Lopressor) 50 mg PO BID [facility] Last Admin: 09/21/18 17:28 Dose: Not Given Montelukast Sodium (Singulair) 10 mg PO HS [facility] Last Admin: 09/21/18 22:10 Dose: Not Given Mupirocin (Bactroban Ointment) 0 gm TOP DAILY [facility] Stop: 09/29/18 10:01 Last Admin: 09/22/18 10:06 Dose: 1 applic Pantoprazole Sodium (Protonix Inj) 40 mg IVP DAILY [facility] Polyethylene Glycol (Miralax) 17 gm PO BID [facility] Last Admin: 09/22/18 10:09 Dose: Not Given Pregabalin (Lyrica) 50 mg PO [facility] Last Admin: 09/21/18 22:20 Dose: Not Given Sildenafil Citrate (Revatio) 20 mg PO BID [facility] Last Admin: 09/22/18 12:47 Dose: 20 mg Silver Sulfadiazine (Silvadene 1% 25 Gm) 0 gm TP DAILY [facility] Last Admin: 09/22/18 10:11 Dose: 25 gm Verapamil HCl (Verapamil Inj) 2.5 mg IVP Q6H PRN PRN Reason: For heart rate >120 - Labs Labs: 09/22/18 06:50 09/22/18 06:50 Attending/Attestation - Attestation I have personally seen and examined this patient.: Yes I have fully participated in the care of the patient.: Yes I have reviewed all pertinent clinical information, including history, physical exam and plan: Yes
--- NOTE | 2018-09-21 12:40 | CP.CCUPN ---
<Bernadine White - Last Filed: 09/21/18 12:36> CCU Subjective - Physician Review Subjective (Free Text): 09/21/18 12:36 Bernadine White, PGY-1 ICU Progress Note Pt was seen and examined this AM with ICU team. Pt is somnolent on exam today and therefore ROS is limited. Pt is on Bipap and sating well. Weaning attempt off of bipap made, but pt did not successfully wean off. Pt continues to be on bipap and will be going for dialysis later today. CCU Objective - Vital Signs / Intake & Output Vital Signs (Last 4 hours): Vital Signs Resp 09/21/18 10:19 24 Intake and Output (Last 8hrs): Intake & Output 09/20/18 09/21/18 09/21/18 22:59 06:59 14:59 Intake Total 450 Output Total 100 Balance 350 Intake: IV 450 Right Subclavian 450 Output: Urine 100 Urine, Voided 100 - Physical Exam Physical Exam Limitations: Positive for: Altered Mental Status Head: Positive for: Atraumatic, Normocephalic, Contusion (over the left eyebrow, no stepoff). Negative for: Tenderness (no tenderness to plapation over the contusion) Pupils: Positive for: PERRL Extroacular Muscles: Positive for: EOMI Conjunctiva: Positive for: Normal Mouth: Positive for: Moist Mucous Membranes Neck: Positive for: Normal Range of Motion Respiratory/Chest: Positive for: Clear to Auscultation, Good Air Exchange, Wheezes (end expiratory wheezes), Rhonchi (diffuse rhonchi ), Other ([place] to the right upper chest wall. ). Negative for: Respiratory Distress, Accessory Muscle Use Cardiovascular: Positive for: Regular Rate and Rhythm, Normal S1, S2. Negative for: Murmurs Abdomen: Positive for: Normal Bowel Sounds. Negative for: Tenderness, Distention, Peritoneal Signs Back: Positive for: Normal Inspection, Decubitus Ulcer (foul odor, left buttock open wound 5x6cm, w/surrounding erythema, not draining; right buttock 2.5x3 cm not open, erythematous; + increased warmth; no streaking from either wound) Upper Extremity: Positive for: Normal Inspection. Negative for: Cyanosis, Edema Lower Extremity: Positive for: Edema (2+ bilateral lower extremity pitting edema ) Neurological: Positive for: GCS=15, CN II-XII Intact, Speech Normal Skin: Positive for: Warm, Dry, Normal Color, Other (Patient has foul smelling wounds on buttocks. Left buttocks: stage 1, open wound. Right buttocks: skin break down 2 1/2 by 3 inches). Negative for: Rashes Psychiatric: Positive for: Other (somnolent) - Medications Active Medications: Active Medications Generic Name Dose Route Start Last Admin Trade Name Freq PRN Reason Stop Dose Admin Albuterol/Ipratropium 3 ml 09/18/18 08:26 09/18/18 08:32 Duoneb 3 Mg/0.5 Mg (3 Ml) Ud IH 3 ml Q1H PRN Administration Shortness of Breath Albuterol/Ipratropium 3 ml 09/18/18 11:30 09/21/18 07:41 Duoneb 3 Mg/0.5 Mg (3 Ml) Ud IH 3 ml [id number] TORI Administration Arformoterol Tartrate 15 mcg 09/13/18 20:00 09/21/18 07:40 Brovana IH 15 mcg [id number] TORI Administration Aspirin 81 mg 09/14/18 10:00 09/20/18 10:00 Ecotrin PO Not Given DAILY TORI Atorvastatin Calcium 20 mg 09/14/18 17:00 09/20/18 17:39 Lipitor PO Not Given DIN TORI Budesonide 0.5 mg 09/15/18 08:00 09/21/18 07:40 Pulmicort Respules IH 0.5 mg [id number] TORI Administration Doxycycline Hyclate 100 mg 09/13/18 22:00 09/20/18 22:48 Doryx PO Not Given Q12 TORI Protocol Enoxaparin Sodium 30 mg 09/17/18 16:15 09/20/18 09:33 Lovenox SC 30 mg DAILY TORI Administration Protocol Escitalopram Oxalate 10 mg 09/14/18 10:00 09/20/18 09:35 Lexapro PO Not Given DAILY TORI Famotidine 20 mg 09/20/18 07:54 09/20/18 22:17 Pepcid PO Not Given HS TORI Meropenem 250 mg/ Sodium 100 mls @ 100 mls/hr 09/20/18 06:15 09/21/18 06:17 Chloride IVPB 09/27/18 06:16 100 mls/hr Q12H TORI Administration Protocol Lidocaine HCl 1 ea 09/20/18 10:40 Xylocaine 2% TOP DAILY [facility] Methylprednisolone 40 mg 09/21/18 10:00 09/21/18 09:35 Solu-Medrol IVP 40 mg DAILY TORI Administration Metoprolol Tartrate 50 mg 09/13/18 19:30 09/20/18 19:48 Lopressor PO Not Given BID TORI Montelukast Sodium 10 mg 09/13/18 22:00 09/20/18 22:49 Singulair PO Not Given HS TORI Mupirocin 0 gm 09/20/18 10:00 09/20/18 09:33 Bactroban Ointment TOP 09/29/18 10:01 1 applic DAILY TORI Administration Oxycodone HCl 10 mg 09/13/18 19:19 09/15/18 17:53 Oxycodone Immediate Release Tab PO 10 mg Q6H PRN Administration Pain, moderate (4-7) Pantoprazole Sodium 40 mg 09/20/18 10:00 09/21/18 09:20 Protonix Inj IVP 40 mg DAILY [facility] Administration Polyethylene Glycol 17 gm 09/14/18 10:00 09/20/18 17:39 Miralax PO Not Given BID [facility] Pregabalin 50 mg 09/13/18 22:00 09/20/18 22:48 Lyrica PO Not Given HS [facility] Sildenafil Citrate 20 mg 09/13/18 19:30 09/20/18 17:40 Revatio PO Not Given BID [facility] Silver Sulfadiazine 0 gm 09/14/18 10:00 09/20/18 18:43 Silvadene 1% 25 Gm TP 25 gm DAILY TORI Administration - Patient Studies Lab Studies: Microbiology Studies 09/20/18 07:00 Blood Culture - Preliminary Blood-Venous NO GROWTH AFTER 24 HOURS 09/20/18 06:40 Blood Culture - Preliminary Blood-Venous NO GROWTH AFTER 24 HOURS Lab Studies 09/21/18 09/21/18 09/21/18 Range/Units 09:07 06:50 06:50 WBC 9.9 (4.5-11.0) 10^3/uL RBC 2.58 L (3.5-6.1) 10^6/uL Hgb 7.6 L (12.0-16.0) g/dL Hct 23.6 L (36.0-48.0) % MCV 91.5 (80.0-105.0) fl MCH 29.5 (25.0-35.0) pg MCHC 32.2 (31.0-37.0) g/dl RDW 16.9 H (11.5-14.5) % Plt Count 182 (120.0-450.0) 10^3/uL MPV 10.3 (7.0-11.0) fl Neut % (Auto) 96.3 H (50.0-68.0) % Lymph % (Auto) 2.1 L (22.0-35.0) % [place] % (Auto) 1.6 (1.0-6.0) % Eos % (Auto) 0.0 L (1.5-5.0) % Baso % (Auto) 0.0 (0.0-3.0) % Lymph # (Auto) 0.2 L (1.2-3.4) [place] # (Auto) 0.2 (0.1-0.6) Eos # (Auto) 0.0 (0.0-0.7) Baso # (Auto) 0.00 (0.0-2.0) K/mm3 Absolute Neuts (auto) 9.50 H (1.4-6.5) pCO2 (35-45) mm/Hg pO2 (80-100) mm/Hg HCO3 (21-28) mmol/L ABG pH (7.35-7.45) ABG Total CO2 (22-28) mmol.L ABG O2 Saturation (95-98) % ABG O2 Content (15-23) ML/dl ABG Base Excess (-2.0-3.0) mmol/L ABG Hemoglobin (11.7-17.4) g/dL ABG Carboxyhemoglobin (0.5-1.5) % POC ABG HHb (Measured) (0-5) % ABG Methemoglobin (0.0-3.0) % ABG O2 Capacity (16-24) mL/dl Hgb O2 Saturation (95.0-98.0) % FiO2 % Sodium 140 (132-148) mmol/L Potassium 3.5 L (3.6-5.0) mmol/L Chloride 107 (98-107) mmol/L Carbon Dioxide 24 (21-33) mmol/L Anion Gap 12 (10-20) BUN 54 H (7-21) mg/dL Creatinine 3.8 H (0.7-1.2) mg/dl Est GFR ( Amer) 14 Est GFR (Non-Af Amer) 12 Random Glucose 97 (70-110) mg/dL Calcium 8.9 (8.4-10.5) mg/dL Total Bilirubin 0.6 (0.2-1.3) mg/dL AST 45 H (14-36) U/L ALT 33 (7-56) U/L Alkaline Phosphatase 75 (38-126) U/L Total Protein 4.6 L (5.8-8.3) g/dL Albumin 2.2 L (3.0-4.8) g/dL Globulin 2.4 gm/dL Albumin/Globulin Ratio 0.9 L (1.1-1.8) Procalcitonin (0.19-0.49) NG/ML Hep Bs Antigen (NEGATIVE) Hep Bs Antibody (NEGATIVE) Hep B Core IgM Ab (NEGATIVE) Blood Type O POSITIVE Antibody Screen Negative Crossmatch See Detail BBK History Checked Patient has bt 09/21/18 09/20/18 09/20/18 Range/Units 05:10 14:30 14:30 WBC (4.5-11.0) 10^3/uL RBC (3.5-6.1) 10^6/uL Hgb (12.0-16.0) g/dL Hct (36.0-48.0) % MCV (80.0-105.0) fl MCH (25.0-35.0) pg MCHC (31.0-37.0) g/dl RDW (11.5-14.5) % Plt Count (120.0-450.0) 10^3/uL MPV (7.0-11.0) fl Neut % (Auto) (50.0-68.0) % Lymph % (Auto) (22.0-35.0) % [place] % (Auto) (1.0-6.0) % Eos % (Auto) (1.5-5.0) % Baso % (Auto) (0.0-3.0) % Lymph # (Auto) (1.2-3.4) [place] # (Auto) (0.1-0.6) Eos # (Auto) (0.0-0.7) Baso # (Auto) (0.0-2.0) K/mm3 Absolute Neuts (auto) (1.4-6.5) pCO2 28 L (35-45) mm/Hg pO2 75.0 L (80-100) mm/Hg HCO3 21.8 (21-28) mmol/L ABG pH 7.50 H (7.35-7.45) ABG Total CO2 22.7 (22-28) mmol.L ABG O2 Saturation 97.5 (95-98) % ABG O2 Content 10.4 L (15-23) ML/dl ABG Base Excess -1.0 (-2.0-3.0) mmol/L ABG Hemoglobin 7.7 L (11.7-17.4) g/dL ABG Carboxyhemoglobin 1.6 H (0.5-1.5) % POC ABG HHb (Measured) 2.4 (0-5) % ABG Methemoglobin 0.8 (0.0-3.0) % ABG O2 Capacity 10.7 L (16-24) mL/dl Hgb O2 Saturation 95.2 (95.0-98.0) % FiO2 40.0 % Sodium (132-148) mmol/L Potassium (3.6-5.0) mmol/L Chloride (98-107) mmol/L Carbon Dioxide (21-33) mmol/L Anion Gap (10-20) BUN (7-21) mg/dL Creatinine (0.7-1.2) mg/dl Est GFR ( Amer) Est GFR (Non-Af Amer) Random Glucose (70-110) mg/dL Calcium (8.4-10.5) mg/dL Total Bilirubin (0.2-1.3) mg/dL AST (14-36) U/L ALT (7-56) U/L Alkaline Phosphatase (38-126) U/L Total Protein (5.8-8.3) g/dL Albumin (3.0-4.8) g/dL Globulin gm/dL Albumin/Globulin Ratio (1.1-1.8) Procalcitonin (0.19-0.49) NG/ML Hep Bs Antigen Negative (NEGATIVE) Hep Bs Antibody Negative (NEGATIVE) Hep B Core IgM Ab Negative (NEGATIVE) Blood Type Antibody Screen Crossmatch BBK History Checked 09/20/18 Range/Units 11:00 WBC (4.5-11.0) 10^3/uL RBC (3.5-6.1) 10^6/uL Hgb (12.0-16.0) g/dL Hct (36.0-48.0) % MCV (80.0-105.0) fl MCH (25.0-35.0) pg MCHC (31.0-37.0) g/dl RDW (11.5-14.5) % Plt Count (120.0-450.0) 10^3/uL MPV (7.0-11.0) fl Neut % (Auto) (50.0-68.0) % Lymph % (Auto) (22.0-35.0) % [place] % (Auto) (1.0-6.0) % Eos % (Auto) (1.5-5.0) % Baso % (Auto) (0.0-3.0) % Lymph # (Auto) (1.2-3.4) [place] # (Auto) (0.1-0.6) Eos # (Auto) (0.0-0.7) Baso # (Auto) (0.0-2.0) K/mm3 Absolute Neuts (auto) (1.4-6.5) pCO2 (35-45) mm/Hg pO2 (80-100) mm/Hg HCO3 (21-28) mmol/L ABG pH (7.35-7.45) ABG Total CO2 (22-28) mmol.L ABG O2 Saturation (95-98) % ABG O2 Content (15-23) ML/dl ABG Base Excess (-2.0-3.0) mmol/L ABG Hemoglobin (11.7-17.4) g/dL ABG Carboxyhemoglobin (0.5-1.5) % POC ABG HHb (Measured) (0-5) % ABG Methemoglobin (0.0-3.0) % ABG O2 Capacity (16-24) mL/dl Hgb O2 Saturation (95.0-98.0) % FiO2 % Sodium (132-148) mmol/L Potassium (3.6-5.0) mmol/L Chloride (98-107) mmol/L Carbon Dioxide (21-33) mmol/L Anion Gap (10-20) BUN (7-21) mg/dL Creatinine (0.7-1.2) mg/dl Est GFR ( Amer) Est GFR (Non-Af Amer) Random Glucose (70-110) mg/dL Calcium (8.4-10.5) mg/dL Total Bilirubin (0.2-1.3) mg/dL AST (14-36) U/L ALT (7-56) U/L Alkaline Phosphatase (38-126) U/L Total Protein (5.8-8.3) g/dL Albumin (3.0-4.8) g/dL Globulin gm/dL Albumin/Globulin Ratio (1.1-1.8) Procalcitonin 0.91 H (0.19-0.49) NG/ML Hep Bs Antigen (NEGATIVE) Hep Bs Antibody (NEGATIVE) Hep B Core IgM Ab (NEGATIVE) Blood Type Antibody Screen Crossmatch BBK History Checked Laboratory Results - last 24 hr 09/20/18 09/20/18 09/20/18 11:00 14:30 14:30 WBC RBC Hgb Hct MCV MCH MCHC RDW Plt Count MPV Neut % (Auto) Lymph % (Auto) [place] % (Auto) Eos % (Auto) Baso % (Auto) Lymph # (Auto) [place] # (Auto) Eos # (Auto) Baso # (Auto) Absolute Neuts (auto) pCO2 pO2 HCO3 ABG pH ABG Total CO2 ABG O2 Saturation ABG O2 Content ABG Base Excess ABG Hemoglobin ABG Carboxyhemoglobin POC ABG HHb (Measured) ABG Methemoglobin ABG O2 Capacity Hgb O2 Saturation FiO2 Sodium Potassium Chloride Carbon Dioxide Anion Gap BUN Creatinine Est GFR ( Amer) Est GFR (Non-Af Amer) Random Glucose Calcium Total Bilirubin AST ALT Alkaline Phosphatase Total Protein Albumin Globulin Albumin/Globulin Ratio Procalcitonin 0.91 H Hep Bs Antigen Negative Hep Bs Antibody Negative Hep B Core IgM Ab Negative Blood Type Antibody Screen Crossmatch BBK History Checked 09/21/18 09/21/18 09/21/18 05:10 06:50 06:50 WBC 9.9 RBC 2.58 L Hgb 7.6 L Hct 23.6 L MCV 91.5 MCH 29.5 MCHC 32.2 RDW 16.9 H Plt Count 182 MPV 10.3 Neut % (Auto) 96.3 H Lymph % (Auto) 2.1 L [place] % (Auto) 1.6 Eos % (Auto) 0.0 L Baso % (Auto) 0.0 Lymph # (Auto) 0.2 L [place] # (Auto) 0.2 Eos # (Auto) 0.0 Baso # (Auto) 0.00 Absolute Neuts (auto) 9.50 H pCO2 28 L pO2 75.0 L HCO3 21.8 ABG pH 7.50 H ABG Total CO2 22.7 ABG O2 Saturation 97.5 ABG O2 Content 10.4 L ABG Base Excess -1.0 ABG Hemoglobin 7.7 L ABG Carboxyhemoglobin 1.6 H POC ABG HHb (Measured) 2.4 ABG Methemoglobin 0.8 ABG O2 Capacity 10.7 L Hgb O2 Saturation 95.2 FiO2 40.0 Sodium 140 Potassium 3.5 L Chloride 107 Carbon Dioxide 24 Anion Gap 12 BUN 54 H Creatinine 3.8 H Est GFR ( Amer) 14 Est GFR (Non-Af Amer) 12 Random Glucose 97 Calcium 8.9 Total Bilirubin 0.6 AST 45 H ALT 33 Alkaline Phosphatase 75 Total Protein 4.6 L Albumin 2.2 L Globulin 2.4 Albumin/Globulin Ratio 0.9 L Procalcitonin Hep Bs Antigen Hep Bs Antibody Hep B Core IgM Ab Blood Type Antibody Screen Crossmatch BBK History Checked 09/21/18 09:07 WBC RBC Hgb Hct MCV MCH MCHC RDW Plt Count MPV Neut % (Auto) Lymph % (Auto) [place] % (Auto) Eos % (Auto) Baso % (Auto) Lymph # (Auto) [place] # (Auto) Eos # (Auto) Baso # (Auto) Absolute Neuts (auto) pCO2 pO2 HCO3 ABG pH ABG Total CO2 ABG O2 Saturation ABG O2 Content ABG Base Excess ABG Hemoglobin ABG Carboxyhemoglobin POC ABG HHb (Measured) ABG Methemoglobin ABG O2 Capacity Hgb O2 Saturation FiO2 Sodium Potassium Chloride Carbon Dioxide Anion Gap BUN Creatinine Est GFR ( Amer) Est GFR (Non-Af Amer) Random Glucose Calcium Total Bilirubin AST ALT Alkaline Phosphatase Total Protein Albumin Globulin Albumin/Globulin Ratio Procalcitonin Hep Bs Antigen Hep Bs Antibody Hep B Core IgM Ab Blood Type O POSITIVE Antibody Screen Negative Crossmatch See Detail BBK History Checked Patient has bt Radiology Impressions: Radiology Impressions Chest X-Ray 09/21/18 06:00 IMPRESSION: Chronic interstitial changes are seen. There improvement in the right upper lobe infiltrate seen previously. Critical Care Progress Note - Nutrition Nutrition: Nutrition Category Date Time Status Heart Healthy Diet [DIET] Diets 09/13/18 Dinner Active Assessment/Plan - Assessment and Plan (Free Text) Assessment: 78yo F with PMHx of Metastatic Breast CA, COPD, Pulm HTN, CKD, PVD, GERD, who is ICU was consulted for due to acute hypoxic resp failure and multi-organ failure. Pt continues to be on Bipap after weaning trial failed. Plan: Neuro: - AOx0 - Somnolent - Will cont to monitor Pulm: - Pt is tolerating Bipap well on 70% FiO2, will attempt to wean off of bipap onto NC tomorrow - CXR: Increasing RUL infiltrate - Abx per ID recs - follow up cultures, procal - Cont duonebs, brovana as ordered - Solumedrol 40mg IV BID - Maintain O2 sat >88% Cardio: - BP control - Cont Asa, Lipitor, lopressor - would DC Lasix - follow up cardio Endo - FS control GI - LTFs downtrending Nephro: - Tolerated HD session, will go for another session todayu\ - Nephro recs appreciated GI: Pepcid DVT: Heparin Case seen and discussed with Dr. Jose White, PGY-1 <Janak Garcia - Last Filed: 09/21/18 15:25> CCU Objective - Vital Signs / Intake & Output Vital Signs (Last 4 hours): Vital Signs Pulse 09/21/18 13:01 95 H - Medications Active Medications: Active Medications Generic Name Dose Route Start Last Admin Trade Name Freq PRN Reason Stop Dose Admin Albuterol/Ipratropium 3 ml 09/18/18 08:26 09/18/18 08:32 Duoneb 3 Mg/0.5 Mg (3 Ml) Ud IH 3 ml Q1H PRN Administration Shortness of Breath Albuterol/Ipratropium 3 ml 09/21/18 14:00 09/21/18 13:20 Duoneb 3 Mg/0.5 Mg (3 Ml) Ud IH 3 ml [id number] TORI Administration Arformoterol Tartrate 15 mcg 09/13/18 20:00 09/21/18 07:40 Brovana IH 15 mcg [id number] TORI Administration Aspirin 81 mg 09/14/18 10:00 09/20/18 10:00 Ecotrin PO Not Given DAILY TORI Atorvastatin Calcium 20 mg 09/14/18 17:00 09/20/18 17:39 Lipitor PO Not Given DIN [facility] Budesonide 0.5 mg 09/15/18 08:00 09/21/18 07:40 Pulmicort Respules IH 0.5 mg [id number] TORI Administration Doxycycline Hyclate 100 mg 09/13/18 22:00 09/20/18 22:48 Doryx PO Not Given Q12 [facility] Protocol Enoxaparin Sodium 30 mg 09/17/18 16:15 09/20/18 09:33 Lovenox SC 30 mg DAILY [facility] Administration Protocol Escitalopram Oxalate 10 mg 09/14/18 10:00 09/20/18 09:35 Lexapro PO Not Given DAILY [facility] Famotidine 20 mg 09/20/18 07:54 09/20/18 22:17 Pepcid PO Not Given HS [facility] Meropenem 250 mg/ Sodium 100 mls @ 100 mls/hr 09/20/18 06:15 09/21/18 06:17 Chloride IVPB 09/27/18 06:16 100 mls/hr Q12H TORI Administration Protocol Lidocaine HCl 1 ea 09/20/18 10:40 Xylocaine 2% TOP DAILY [facility] Methylprednisolone 40 mg 09/21/18 10:00 09/21/18 09:35 Solu-Medrol IVP 40 mg DAILY [facility] Administration Metoprolol Tartrate 50 mg 09/13/18 19:30 09/20/18 19:48 Lopressor PO Not Given BID TORI Montelukast Sodium 10 mg 09/13/18 22:00 09/20/18 22:49 Singulair PO Not Given HS [facility] Mupirocin 0 gm 09/20/18 10:00 09/20/18 09:33 Bactroban Ointment TOP 09/29/18 10:01 1 applic DAILY TORI Administration Oxycodone HCl 10 mg 09/13/18 19:19 09/15/18 17:53 Oxycodone Immediate Release Tab PO 10 mg Q6H PRN Administration Pain, moderate (4-7) Pantoprazole Sodium 40 mg 09/20/18 10:00 09/21/18 09:20 Protonix Inj IVP 40 mg DAILY TORI Administration Polyethylene Glycol 17 gm 09/14/18 10:00 09/20/18 17:39 Miralax PO Not Given BID TORI Pregabalin 50 mg 09/13/18 22:00 09/20/18 22:48 Lyrica PO Not Given HS TORI Sildenafil Citrate 20 mg 09/13/18 19:30 09/20/18 17:40 Revatio PO Not Given BID TORI Silver Sulfadiazine 0 gm 09/14/18 10:00 09/20/18 18:43 Silvadene 1% 25 Gm TP 25 gm DAILY TORI Administration - Patient Studies Lab Studies: Microbiology Studies 09/20/18 07:00 Blood Culture - Preliminary Blood-Venous NO GROWTH AFTER 24 HOURS 09/20/18 06:40 Blood Culture - Preliminary Blood-Venous NO GROWTH AFTER 24 HOURS Lab Studies 09/21/18 09/21/18 09/21/18 Range/Units 09:07 06:50 06:50 WBC 9.9 (4.5-11.0) 10^3/uL RBC 2.58 L (3.5-6.1) 10^6/uL Hgb 7.6 L (12.0-16.0) g/dL Hct 23.6 L (36.0-48.0) % MCV 91.5 (80.0-105.0) fl MCH 29.5 (25.0-35.0) pg MCHC 32.2 (31.0-37.0) g/dl RDW 16.9 H (11.5-14.5) % Plt Count 182 (120.0-450.0) 10^3/uL MPV 10.3 (7.0-11.0) fl Neut % (Auto) 96.3 H (50.0-68.0) % Lymph % (Auto) 2.1 L (22.0-35.0) % [place] % (Auto) 1.6 (1.0-6.0) % Eos % (Auto) 0.0 L (1.5-5.0) % Baso % (Auto) 0.0 (0.0-3.0) % Lymph # (Auto) 0.2 L (1.2-3.4) [place] # (Auto) 0.2 (0.1-0.6) Eos # (Auto) 0.0 (0.0-0.7) Baso # (Auto) 0.00 (0.0-2.0) K/mm3 Absolute Neuts (auto) 9.50 H (1.4-6.5) pCO2 (35-45) mm/Hg pO2 (80-100) mm/Hg HCO3 (21-28) mmol/L ABG pH (7.35-7.45) ABG Total CO2 (22-28) mmol.L ABG O2 Saturation (95-98) % ABG O2 Content (15-23) ML/dl ABG Base Excess (-2.0-3.0) mmol/L ABG Hemoglobin (11.7-17.4) g/dL ABG Carboxyhemoglobin (0.5-1.5) % POC ABG HHb (Measured) (0-5) % ABG Methemoglobin (0.0-3.0) % ABG O2 Capacity (16-24) mL/dl Hgb O2 Saturation (95.0-98.0) % FiO2 % Sodium 140 (132-148) mmol/L Potassium 3.5 L (3.6-5.0) mmol/L Chloride 107 (98-107) mmol/L Carbon Dioxide 24 (21-33) mmol/L Anion Gap 12 (10-20) BUN 54 H (7-21) mg/dL Creatinine 3.8 H (0.7-1.2) mg/dl Est GFR ( Amer) 14 Est GFR (Non-Af Amer) 12 Random Glucose 97 (70-110) mg/dL Calcium 8.9 (8.4-10.5) mg/dL Total Bilirubin 0.6 (0.2-1.3) mg/dL AST 45 H (14-36) U/L ALT 33 (7-56) U/L Alkaline Phosphatase 75 (38-126) U/L Total Protein 4.6 L (5.8-8.3) g/dL Albumin 2.2 L (3.0-4.8) g/dL Globulin 2.4 gm/dL Albumin/Globulin Ratio 0.9 L (1.1-1.8) Procalcitonin (0.19-0.49) NG/ML Hep Bs Antigen (NEGATIVE) Hep Bs Antibody (NEGATIVE) Hep B Core IgM Ab (NEGATIVE) Blood Type O POSITIVE Antibody Screen Negative Crossmatch See Detail BBK History Checked Patient has bt 09/21/18 09/20/18 09/20/18 Range/Units 05:10 14:30 14:30 WBC (4.5-11.0) 10^3/uL RBC (3.5-6.1) 10^6/uL Hgb (12.0-16.0) g/dL Hct (36.0-48.0) % MCV (80.0-105.0) fl MCH (25.0-35.0) pg MCHC (31.0-37.0) g/dl RDW (11.5-14.5) % Plt Count (120.0-450.0) 10^3/uL MPV (7.0-11.0) fl Neut % (Auto) (50.0-68.0) % Lymph % (Auto) (22.0-35.0) % [place] % (Auto) (1.0-6.0) % Eos % (Auto) (1.5-5.0) % Baso % (Auto) (0.0-3.0) % Lymph # (Auto) (1.2-3.4) [place] # (Auto) (0.1-0.6) Eos # (Auto) (0.0-0.7) Baso # (Auto) (0.0-2.0) K/mm3 Absolute Neuts (auto) (1.4-6.5) pCO2 28 L (35-45) mm/Hg pO2 75.0 L (80-100) mm/Hg HCO3 21.8 (21-28) mmol/L ABG pH 7.50 H (7.35-7.45) ABG Total CO2 22.7 (22-28) mmol.L ABG O2 Saturation 97.5 (95-98) % ABG O2 Content 10.4 L (15-23) ML/dl ABG Base Excess -1.0 (-2.0-3.0) mmol/L ABG Hemoglobin 7.7 L (11.7-17.4) g/dL ABG Carboxyhemoglobin 1.6 H (0.5-1.5) % POC ABG HHb (Measured) 2.4 (0-5) % ABG Methemoglobin 0.8 (0.0-3.0) % ABG O2 Capacity 10.7 L (16-24) mL/dl Hgb O2 Saturation 95.2 (95.0-98.0) % FiO2 40.0 % Sodium (132-148) mmol/L Potassium (3.6-5.0) mmol/L Chloride (98-107) mmol/L Carbon Dioxide (21-33) mmol/L Anion Gap (10-20) BUN (7-21) mg/dL Creatinine (0.7-1.2) mg/dl Est GFR ( Amer) Est GFR (Non-Af Amer) Random Glucose (70-110) mg/dL Calcium (8.4-10.5) mg/dL Total Bilirubin (0.2-1.3) mg/dL AST (14-36) U/L ALT (7-56) U/L Alkaline Phosphatase (38-126) U/L Total Protein (5.8-8.3) g/dL Albumin (3.0-4.8) g/dL Globulin gm/dL Albumin/Globulin Ratio (1.1-1.8) Procalcitonin (0.19-0.49) NG/ML Hep Bs Antigen Negative (NEGATIVE) Hep Bs Antibody Negative (NEGATIVE) Hep B Core IgM Ab Negative (NEGATIVE) Blood Type Antibody Screen Crossmatch BBK History Checked 09/20/18 Range/Units 11:00 WBC (4.5-11.0) 10^3/uL RBC (3.5-6.1) 10^6/uL Hgb (12.0-16.0) g/dL Hct (36.0-48.0) % MCV (80.0-105.0) fl MCH (25.0-35.0) pg MCHC (31.0-37.0) g/dl RDW (11.5-14.5) % Plt Count (120.0-450.0) 10^3/uL MPV (7.0-11.0) fl Neut % (Auto) (50.0-68.0) % Lymph % (Auto) (22.0-35.0) % [place] % (Auto) (1.0-6.0) % Eos % (Auto) (1.5-5.0) % Baso % (Auto) (0.0-3.0) % Lymph # (Auto) (1.2-3.4) [place] # (Auto) (0.1-0.6) Eos # (Auto) (0.0-0.7) Baso # (Auto) (0.0-2.0) K/mm3 Absolute Neuts (auto) (1.4-6.5) pCO2 (35-45) mm/Hg pO2 (80-100) mm/Hg HCO3 (21-28) mmol/L ABG pH (7.35-7.45) ABG Total CO2 (22-28) mmol.L ABG O2 Saturation (95-98) % ABG O2 Content (15-23) ML/dl ABG Base Excess (-2.0-3.0) mmol/L ABG Hemoglobin (11.7-17.4) g/dL ABG Carboxyhemoglobin (0.5-1.5) % POC ABG HHb (Measured) (0-5) % ABG Methemoglobin (0.0-3.0) % ABG O2 Capacity (16-24) mL/dl Hgb O2 Saturation (95.0-98.0) % FiO2 % Sodium (132-148) mmol/L Potassium (3.6-5.0) mmol/L Chloride (98-107) mmol/L Carbon Dioxide (21-33) mmol/L Anion Gap (10-20) BUN (7-21) mg/dL Creatinine (0.7-1.2) mg/dl Est GFR ( Amer) Est GFR (Non-Af Amer) Random Glucose (70-110) mg/dL Calcium (8.4-10.5) mg/dL Total Bilirubin (0.2-1.3) mg/dL AST (14-36) U/L ALT (7-56) U/L Alkaline Phosphatase (38-126) U/L Total Protein (5.8-8.3) g/dL Albumin (3.0-4.8) g/dL Globulin gm/dL Albumin/Globulin Ratio (1.1-1.8) Procalcitonin 0.91 H (0.19-0.49) NG/ML Hep Bs Antigen (NEGATIVE) Hep Bs Antibody (NEGATIVE) Hep B Core IgM Ab (NEGATIVE) Blood Type Antibody Screen Crossmatch BBK History Checked Laboratory Results - last 24 hr 09/20/18 09/20/18 09/20/18 11:00 14:30 14:30 WBC RBC Hgb Hct MCV MCH MCHC RDW Plt Count MPV Neut % (Auto) Lymph % (Auto) [place] % (Auto) Eos % (Auto) Baso % (Auto) Lymph # (Auto) [place] # (Auto) Eos # (Auto) Baso # (Auto) Absolute Neuts (auto) pCO2 pO2 HCO3 ABG pH ABG Total CO2 ABG O2 Saturation ABG O2 Content ABG Base Excess ABG Hemoglobin ABG Carboxyhemoglobin POC ABG HHb (Measured) ABG Methemoglobin ABG O2 Capacity Hgb O2 Saturation FiO2 Sodium Potassium Chloride Carbon Dioxide Anion Gap BUN Creatinine Est GFR ( Amer) Est GFR (Non-Af Amer) Random Glucose Calcium Total Bilirubin AST ALT Alkaline Phosphatase Total Protein Albumin Globulin Albumin/Globulin Ratio Procalcitonin 0.91 H Hep Bs Antigen Negative Hep Bs Antibody Negative Hep B Core IgM Ab Negative Blood Type Antibody Screen Crossmatch BBK History Checked 09/21/18 09/21/18 09/21/18 05:10 06:50 06:50 WBC 9.9 RBC 2.58 L Hgb 7.6 L Hct 23.6 L MCV 91.5 MCH 29.5 MCHC 32.2 RDW 16.9 H Plt Count 182 MPV 10.3 Neut % (Auto) 96.3 H Lymph % (Auto) 2.1 L [place] % (Auto) 1.6 Eos % (Auto) 0.0 L Baso % (Auto) 0.0 Lymph # (Auto) 0.2 L [place] # (Auto) 0.2 Eos # (Auto) 0.0 Baso # (Auto) 0.00 Absolute Neuts (auto) 9.50 H pCO2 28 L pO2 75.0 L HCO3 21.8 ABG pH 7.50 H ABG Total CO2 22.7 ABG O2 Saturation 97.5 ABG O2 Content 10.4 L ABG Base Excess -1.0 ABG Hemoglobin 7.7 L ABG Carboxyhemoglobin 1.6 H POC ABG HHb (Measured) 2.4 ABG Methemoglobin 0.8 ABG O2 Capacity 10.7 L Hgb O2 Saturation 95.2 FiO2 40.0 Sodium 140 Potassium 3.5 L Chloride 107 Carbon Dioxide 24 Anion Gap 12 BUN 54 H Creatinine 3.8 H Est GFR ( Amer) 14 Est GFR (Non-Af Amer) 12 Random Glucose 97 Calcium 8.9 Total Bilirubin 0.6 AST 45 H ALT 33 Alkaline Phosphatase 75 Total Protein 4.6 L Albumin 2.2 L Globulin 2.4 Albumin/Globulin Ratio 0.9 L Procalcitonin Hep Bs Antigen Hep Bs Antibody Hep B Core IgM Ab Blood Type Antibody Screen Crossmatch BBK History Checked 09/21/18 09:07 WBC RBC Hgb Hct MCV MCH MCHC RDW Plt Count MPV Neut % (Auto) Lymph % (Auto) [place] % (Auto) Eos % (Auto) Baso % (Auto) Lymph # (Auto) [place] # (Auto) Eos # (Auto) Baso # (Auto) Absolute Neuts (auto) pCO2 pO2 HCO3 ABG pH ABG Total CO2 ABG O2 Saturation ABG O2 Content ABG Base Excess ABG Hemoglobin ABG Carboxyhemoglobin POC ABG HHb (Measured) ABG Methemoglobin ABG O2 Capacity Hgb O2 Saturation FiO2 Sodium Potassium Chloride Carbon Dioxide Anion Gap BUN Creatinine Est GFR ( Amer) Est GFR (Non-Af Amer) Random Glucose Calcium Total Bilirubin AST ALT Alkaline Phosphatase Total Protein Albumin Globulin Albumin/Globulin Ratio Procalcitonin Hep Bs Antigen Hep Bs Antibody Hep B Core IgM Ab Blood Type O POSITIVE Antibody Screen Negative Crossmatch See Detail BBK History Checked Patient has bt Radiology Impressions: Radiology Impressions Chest X-Ray 09/21/18 06:00 IMPRESSION: Chronic interstitial changes are seen. There improvement in the right upper lobe infiltrate seen previously. Critical Care Progress Note - Nutrition Nutrition: Nutrition Category Date Time Status Heart Healthy Diet [DIET] Diets 09/13/18 Dinner Active Assessment/Plan - Assessment and Plan (Free Text) Plan: Patient seen and examined on rounds, with resident, agree with note with following additions/exceptions: Patient is 78yo female with PMhx of end stage COPD, CHF, severe pulm HTN, Breast Ca on chemo, admitted with multi organ failure. Currently awake, on BIPAP, afebrile, HD stable, comfortable in NAD Renal, Cardio, Pulm following Patients family had rescinded a DNR/DNI order Worsening renal function, HD catheter placed L femoral site, by the MICU team Tolerated HD yesterday, and today Palliative care following Multi Organ failure Renal failure CAD/CABG CHF Pulm HTN Resp failure AMS Breast Ca Recommend: - cont with BIPAP as tolerated, duonebs PRN, monitor resp status closely - Abx, broad spectrum Vanco, Merrem - follow up cultures - HD as per renal - follow up cardio, pulm - monitor LFTs - taper Solumedrol - FS control - GI ppx - DVT ppx, Lovenox - Monitor in CCU Overall prognosis extremely poor
--- NOTE | 2018-09-21 15:18 | PN ---
DATE: 09/21/2018 SUBJECTIVE: The patient is a 78-year-old, seen and examined, seems to be more awake and alert, still has shortness of breath. PHYSICAL EXAMINATION: VITAL SIGNS: She is afebrile, pulse 97, respirations 24 and blood pressure 115/51. LUNGS: Bilateral few soft crackles. HEART: S1 and S2 audible. ABDOMEN: Soft and nontender. No rebound. No guarding. NEUROLOGICAL: The patient is sleepy, but arousable. LABORATORY DATA: WBC 9.9, hemoglobin 7.6, hematocrit 23.6 and platelet 182. Chemistry; sodium 140, potassium 3.5,chloride 107, CO2 of 24, BUN 54, creatinine 3.8 and blood sugar 197. Procalcitonin 0.91. ASSESSMENT: 1. Acute renal failure, started on dialysis. 2. Anemia, may need blood transfusion during dialysis. 3. Chronic obstructive pulmonary disease exacerbation. 4. Bilateral infiltrate. 5. Sacral decubitus. 6. History of carcinoma of breast. PLAN: Currently, the patient is on nebulizer treatment. She will receive blood transfusion. Continue on doxycycline. She is on Lipitor. She is on DVT prophylaxis. Continue meropenem nebulizer treatment. She is on IV steroids, we will continue that. We will followup the patient in a.m. Charla Inman MD
--- NOTE | 2018-09-21 15:24 | CP.PCM.PCO ---
Physician Communication Note - Physician Communication Note Physician Communication Note: Resp Failure,on bipap,s/p 1st dialysis treatment,pneumonia,anemia,1 un.prbc
[2018-09-21] MEDS: POLYETHYLENE GLYCOL 3350 17 GM/Dose PACKET PO SCH ×2 (16:01→17:27)
[2018-09-21] MEDS: Sildenafil 20 MG TAB PO SCH (16:02)
[2018-09-21] MEDS: Enoxaparin 30 mg Syringe SC SCH (16:02)
--- NOTE | 2018-09-21 16:49 | CP.PCM.PN ---
Subjective - Date & Time of Evaluation Date of Evaluation: 09/21/18 Time of Evaluation: 09:50 - Subjective Subjective: Patient continues to have shortness of breath at rest, now on dialysis, no fevers. Objective - Vital Signs/Intake and Output Vital Signs (last 24 hours): Temp Pulse Resp BP Pulse Ox 98.3 F 80 14 116/57 L 95 09/20/18 06:00 09/20/18 12:37 09/20/18 06:00 09/20/18 09:36 09/20/18 06:00 Intake and Output: 09/20/18 09/20/18 06:59 18:59 Output Total 150 Balance -150 - Medications Medications: Current Medications Albuterol/Ipratropium (Duoneb 3 Mg/0.5 Mg (3 Ml) Ud) 3 ml IH Q1H PRN PRN Reason: Shortness of Breath Last Admin: 09/18/18 08:32 Dose: 3 ml Albuterol/Ipratropium (Duoneb 3 Mg/0.5 Mg (3 Ml) Ud) 3 ml IH [id number] [facility] Last Admin: 09/20/18 11:22 Dose: 3 ml Arformoterol Tartrate (Brovana) 15 mcg IH [id number] [facility] Last Admin: 09/20/18 08:11 Dose: 15 mcg Aspirin (Ecotrin) 81 mg PO DAILY [facility] Last Admin: 09/19/18 11:25 Dose: Not Given Atorvastatin Calcium (Lipitor) 20 mg PO DIN [facility] Last Admin: 09/19/18 18:01 Dose: Not Given Budesonide (Pulmicort Respules) 0.5 mg IH [id number] [facility] Last Admin: 09/20/18 08:11 Dose: 0.5 mg Doxycycline Hyclate (Doryx) 100 mg PO Q12 [facility]; Protocol Last Admin: 09/20/18 09:34 Dose: Not Given Enoxaparin Sodium (Lovenox) 30 mg SC DAILY [facility]; Protocol Last Admin: 09/20/18 09:33 Dose: 30 mg Escitalopram Oxalate (Lexapro) 10 mg PO DAILY [facility] Last Admin: 09/20/18 09:35 Dose: Not Given Famotidine (Pepcid) 20 mg PO [facility] Furosemide (Lasix) 40 mg IV DAILY [facility] Last Admin: 09/20/18 09:34 Dose: 40 mg Meropenem 250 mg/ Sodium (Chloride) 100 mls @ 100 mls/hr IVPB Q12H [facility]; Protocol Stop: 09/27/18 06:16 Last Admin: 09/20/18 07:15 Dose: 100 mls/hr Lidocaine HCl (Xylocaine 2%) 1 ea TOP DAILY [facility] Methylprednisolone (Solu-Medrol) 40 mg IVP Q12 [facility] Last Admin: 09/20/18 09:32 Dose: 40 mg Metoprolol Tartrate (Lopressor) 50 mg PO BID [facility] Last Admin: 09/20/18 09:36 Dose: Not Given Montelukast Sodium (Singulair) 10 mg PO HS [facility] Last Admin: 09/19/18 21:04 Dose: Not Given Mupirocin (Bactroban Ointment) 0 gm TOP DAILY [facility] Stop: 09/29/18 10:01 Last Admin: 09/20/18 09:33 Dose: 1 applic Oxycodone HCl (Oxycodone Immediate Release Tab) 10 mg PO Q6H PRN PRN Reason: Pain, moderate (4-7) Last Admin: 09/15/18 17:53 Dose: 10 mg Pantoprazole Sodium (Protonix Inj) 40 mg IVP DAILY [facility] Last Admin: 09/20/18 09:32 Dose: 40 mg Polyethylene Glycol (Miralax) 17 gm PO BID [facility] Last Admin: 09/20/18 09:36 Dose: Not Given Pregabalin (Lyrica) 50 mg PO [facility] Last Admin: 09/19/18 21:03 Dose: Not Given Sildenafil Citrate (Revatio) 20 mg PO BID [facility] Last Admin: 09/19/18 18:01 Dose: Not Given Silver Sulfadiazine (Silvadene 1% 25 Gm) 0 gm TP DAILY [facility] Last Admin: 09/19/18 14:43 Dose: Not Given - Labs Labs: 09/20/18 06:40 09/20/18 06:40 - Constitutional Appears: Chronically Ill, Other (has dyspnea at rest) - Head Exam Head Exam: NORMAL INSPECTION - Respiratory Exam Respiratory Exam: Decreased Breath Sounds - Cardiovascular Exam Cardiovascular Exam: +S1, +S2 - GI/Abdominal Exam GI & Abdominal Exam: Soft. absent: Tenderness Assessment and Plan - Assessment and Plan (Free Text) Plan: Assessment consider bilateral healthcare-associated pneumonia in this patient with worsening respiratory failure probably combination of vascular congestion from worsening renal failure now on hemodialysis S/P UTI with E. coli, uncomplicated. probably cystitis thoracic vertebral compression fractures S/P kyphoplasty COPD chronic renal failure pulmonary HTN PVD GERD Plan gave another dose of Vancomycin and continue Merrem and continue Doxycycline day 2 and follow up repeat cultures; urine Legionella Ag is negative will continue to monitor clinically overall prognosis is poor
[2018-09-21] MEDS ORDERED: Metoprolol 1 mg/ml Inj IVP ONE (17:31)
--- NOTE | 2018-09-21 17:54 | PN ---
DATE: 09/21/2018 REASON FOR CONSULTATION AND FOLLOWUP: Cardiac evaluation, rule out CHF, shortness of breath, acute kidney injury, critically ill. SUBJECTIVE: The patient is on BiPAP, barely respond to verbal stimuli. Daughter and the granddaughter is at the bedside. OBJECTIVE: GENERAL: Mild respiratory distress. Had dialysis yesterday and possible dialysis is scheduled for today. VITAL SIGNS: Temperature is afebrile. Heart rate 95, blood pressure 116/51. HEENT: PERRLA. Extraocular muscles intact. NECK: Supple. No carotid bruit. No thyromegaly. CHEST: Bilateral decreased air entry at the bases, few crackles noted. HEART: On telemetry normal sinus, sinus tachycardia. ABDOMEN: Soft. EXTREMITIES: 1+ pedal edema. LABORATORY DATA: Blood workup, WBC 9.9, hemoglobin 7.6, hematocrit 23.6, platelet count 182. Chemistry shows, sodium 140, potassium 3.5, chloride 107, carbon dioxide 24, anion gap of 12, BUN 54, creatinine 3.5. Total protein 4.6, albumin 2.2, albumin-globulin ratio 0.9. IMPRESSION: A 78-year-old female with past medical history significant for coronary artery disease, status post coronary artery bypass graft in 2012 after the cardiac catheterization that time revealed critical disease in diagonal left anterior The patient was subsequently subjected to open heart surgery where the patient underwent bypass. Recently the patient was admitted with shortness of breath, pneumonia, congestive heart failure, worsening renal insufficiency, acute kidney injury, chronic renal insufficiency requiring yesterday dialysis started. The patient was initially Do Not Resuscitate and Do Not Intubate, but someone in the family, possibly significant other, reversed the Do Not Resuscitate. Now patient is in full code. I discussed with the daughter and granddaughter overall the patient's condition is critical. Prognosis is very poor. The patient's last echo dated 07/03/2018 showed ejection fraction 55% to 60%, moderate aortic regurgitation, [id number]-ge-etipivle tricuspid regurgitation, right ventricular systolic pressure 57 mmHg, trace pulmonary insufficiency dated 07/03/2018. The patient also has a right heart catheterization for pulmonary hypertension, right heart reveal upper limit normal pressure, but pulmonary vascular resistance is elevated. The patient is under ratio for pulmonary hypertension. RECOMMENDATION: Agree with the dialysis, continue as blood pressure tolerated, continue baby aspirin, continue deep venous prophylaxis, continue metoprolol as blood pressures tolerated. Continue broad spectrum antibiotic. Overall, the patient's condition is critical. Prognosis is extremely poor, Discussed with the family. Thank you Dr. Inman for providing us the opportunity in taking care of the patient Yumiko Ramirez. Bibi Welsh MD cc: Charla Inman MD
[2018-09-21] MEDS: Metoprolol 1 mg/ml Inj IVP SCH (18:57)
--- NOTE | 2018-09-21 19:47 | PN ---
DATE: 09/21/2018 SUBJECTIVE: The patient is seen in the ICU. She is lethargic, but a little bit more awake, remains on BiPAP, appears to be a little more comfortable. Not really following commands. Family members are at bedside. The patient received her first dialysis yesterday. She received a second dialysis earlier today.. PHYSICAL EXAMINATION: GENERAL: Elderly lady lying in bed in the ICU on BiPAP. VITAL SIGNS: Blood pressure 116/51, heart rate 95, respiratory rate 20-24, temperature 98. HEENT: Normocephalic, atraumatic, positive pallor. NECK: Supple, no JVD. LUNGS: Bilateral rhonchi, bilateral equal air entry, bilateral expiratory rhonchi. CARDIAC: S1, S2, regular rate and rhythm, no murmur, no rub. ABDOMEN: Obese, distended, soft, nontender, bowel sounds present. EXTREMITIES: No lower extremity edema. INTAKE AND OUTPUT: Not charted. LABORATORY DATA: WBC 9.9, hemoglobin 7.6, hematocrit 23.6, platelets 182. Sodium 140, potassium 3.5, chloride 107, CO2 of 24, BUN 54, creatinine 3.8, glucose 97, calcium 8.9, AST 45, ALT 33, albumin 2.2. Blood gas pH 7.5, pCO2 28, pO2 of 75. CURRENT MEDICATIONS: Brovana, doxycycline 100 every 12 hours, DuoNeb, Ecotrin 81, Lexapro 10, Lipitor 20, Lopressor 50 b.i.d., Lovenox 30, Lyrica 50, meropenem 250 every 12 hours, MiraLax 17 g b.i.d., oxycodone 10 mg every 6 hours p.r.n. Pepcid 20, Protonix 40, Revatio 20 b.i.d. on hold, Singulair, Solu-Medrol 40 IV daily, Xylocaine. ASSESSMENT: A 78-year-old lady with metastatic breast cancer, chronic obstructive pulmonary disease, pulmonary hypertension, peripheral vascular disease, gastroesophageal reflux disease, chronic kidney disease, now with multiorgan dysfunction, respiratory failure, acute hypoxic respiratory failure, acute kidney injury, altered mental status, possible multilobar pneumonia. 1. Acute respiratory failure. 2. Acute kidney injury requiring dialysis. 3. Multilobar pneumonia? 4. Stage IV metastatic breast cancer. 5. Jyafw-kk-pobbglu anemia. 6. Chronic obstructive pulmonary disease/severe pulmonary hypertension. 7. Gastroesophageal reflux disease. PLAN: 1. The patient had stable dialysis earlier today. Was dialyzed with a potassium (K4) bath. No ultrafiltration was ordered. The patient appears to be euvolemic to hypovolemic. Does not appear to be volume overloaded at all. 2. Continue empiric antibiotics for healthcare-associated pneumonia. 3. Dose all antibiotics for creatinine clearance less than 10 mL/minute. 4. Remains critically ill, prognosis grim 5. Case discussed with family numbers at bedside, case discussed with the ICU team, case discussed with , case discussed with the dialysis nurse. More than 35 minutes spent in the care of this critically ill patient. Mayelin Paul MD MTDRubin
[2018-09-22] MEDS: Metoprolol 1 mg/ml Inj IVP SCH ×4 (00:05→14:00)
[2018-09-22] MEDS: Albuterol-Ipratrop 3 mg / 0.5 (3 ml) UD IH SCH ×4 (02:40→20:45)
[2018-09-22 03:11] LABS: CREATININE,RANDOM URINE 26 mg/dL
[2018-09-22 06:27] LABS: ARTERIAL BLOOD GAS HCO3 26.7 mmol/L (21-28); ARTERIAL BLOOD GAS HEMOGLOBIN 10.6 g/dL (11.7-17.4); ARTERIAL BLOOD GAS O2 CAPACITY 14.7 mL/dl (16-24); ARTERIAL BLOOD GAS O2 CONTENT 14.2 ML/dl (15-23); ARTERIAL BLOOD GAS O2 SAT 96.9 % (95-98); ARTERIAL BLOOD GAS PCO2 35 mm/Hg (35-45); ARTERIAL BLOOD GAS PH 7.49 (7.35-7.45); ARTERIAL BLOOD GAS TCO2 27.8 mmol.L (22-28)
[2018-09-22 07:08] LABS: BASO # 0.01 K/mm3 (0.0-2.0); BASO % 0.1 % (0.0-3.0); LYMPH # 0.2 (1.2-3.4); LYMPH % 1.8 % (22.0-35.0); MEAN CELL VOLUME 88.7 fl (80.0-105.0); MEAN CORPUSCULAR HEMOGLOBIN 28.5 pg (25.0-35.0); MEAN CORPUSCULAR HGB CONC 32.2 g/dl (31.0-37.0); MEAN PLATELET VOLUME 10.5 fl (7.0-11.0); MONO # 0.3 (0.1-0.6); PLATELET COUNT 155 10^3/uL (120.0-450.0); RBC 3.26 10^6/uL (3.5-6.1); RED CELL DISTRIBUTION WIDTH 18.8 % (11.5-14.5); WHITE BLOOD COUNT 13.1 10^3/uL (4.5-11.0)
[2018-09-22 07:23] LABS: HEMOGLOBIN 9.3 g/dL (12.0-16.0)
[2018-09-22 07:33] LABS: ALBUMIN 2.4 g/dL (3.0-4.8); CALCIUM 8.9 mg/dL (8.4-10.5)
[2018-09-22] MEDS: Arformoterol 15 mcg/2 ml Inh Sol IH SCH ×2 (07:37→20:45)
[2018-09-22 08:14] LABS: BAND 1 % (0-2); LYMPHOCYTE 1 % (22.0-35.0); MONOCYTE 1 % (1.0-6.0); NEUTROPHIL 97 % (50.0-70.0)
[2018-09-22 08:15] LABS: PLATELET ESTIMATE NORMAL (NORMAL)
--- NOTE | 2018-09-22 09:27 | CP.PCM.PN ---
Subjective - Date & Time of Evaluation Date of Evaluation: 09/21/18 Time of Evaluation: 09:00 - Subjective Subjective: Awake, restless,unable to follow command. High flow 02 Objective - Vital Signs/Intake and Output Vital Signs (last 24 hours): Temp Pulse Resp BP Pulse Ox 98.7 F 95 H 24 133/70 80 L 09/22/18 04:00 09/22/18 06:20 09/22/18 07:40 09/22/18 06:00 09/22/18 06:20 Intake and Output: 09/22/18 09/22/18 06:59 18:59 Intake Total 100 Output Total 1000 Balance -900 - Medications Medications: Current Medications Albuterol/Ipratropium (Duoneb 3 Mg/0.5 Mg (3 Ml) Ud) 3 ml IH Q1H PRN PRN Reason: Shortness of Breath Last Admin: 09/18/18 08:32 Dose: 3 ml Albuterol/Ipratropium (Duoneb 3 Mg/0.5 Mg (3 Ml) Ud) 3 ml IH [id number] [facility] Last Admin: 09/22/18 07:38 Dose: 3 ml Arformoterol Tartrate (Brovana) 15 mcg IH [id number] [facility] Last Admin: 09/22/18 07:37 Dose: 15 mcg Aspirin (Ecotrin) 81 mg PO DAILY [facility] Last Admin: 09/21/18 15:59 Dose: Not Given Atorvastatin Calcium (Lipitor) 20 mg PO DIN [facility] Last Admin: 09/20/18 17:39 Dose: Not Given Budesonide (Pulmicort Respules) 0.5 mg IH [id number] [facility] Last Admin: 09/21/18 20:13 Dose: 0.5 mg Doxycycline Hyclate (Doryx) 100 mg PO Q12 [facility]; Protocol Last Admin: 09/21/18 22:09 Dose: Not Given Enoxaparin Sodium (Lovenox) 30 mg SC DAILY [facility]; Protocol Last Admin: 09/21/18 16:02 Dose: 30 mg Escitalopram Oxalate (Lexapro) 10 mg PO DAILY [facility] Last Admin: 09/21/18 16:00 Dose: Not Given Famotidine (Pepcid) 20 mg PO HS [facility] Last Admin: 09/21/18 22:05 Dose: Not Given Meropenem 250 mg/ Sodium (Chloride) 100 mls @ 100 mls/hr IVPB Q12H [facility]; Protocol Stop: 09/27/18 06:16 Last Admin: 09/22/18 05:59 Dose: 100 mls/hr Lidocaine HCl (Xylocaine 2%) 1 ea TOP DAILY [facility] Last Admin: 09/21/18 11:00 Dose: 1 applic Methylprednisolone (Solu-Medrol) 40 mg IVP DAILY [facility] Last Admin: 09/21/18 09:35 Dose: 40 mg Metoprolol Tartrate (Lopressor) 50 mg PO BID [facility] Last Admin: 09/21/18 17:28 Dose: Not Given Metoprolol Tartrate (Lopressor) 5 mg IVP Q6H [facility] Last Admin: 09/22/18 06:00 Dose: Not Given Montelukast Sodium (Singulair) 10 mg PO [facility] Last Admin: 09/21/18 22:10 Dose: Not Given Mupirocin (Bactroban Ointment) 0 gm TOP DAILY [facility] Stop: 09/29/18 10:01 Last Admin: 09/20/18 09:33 Dose: 1 applic Oxycodone HCl (Oxycodone Immediate Release Tab) 10 mg PO Q6H PRN PRN Reason: Pain, moderate (4-7) Last Admin: 09/15/18 17:53 Dose: 10 mg Pantoprazole Sodium (Protonix Inj) 40 mg IVP DAILY [facility] Last Admin: 09/21/18 09:20 Dose: 40 mg Polyethylene Glycol (Miralax) 17 gm PO BID [facility] Last Admin: 09/21/18 17:27 Dose: Not Given Pregabalin (Lyrica) 50 mg PO [facility] Last Admin: 09/21/18 22:20 Dose: Not Given Sildenafil Citrate (Revatio) 20 mg PO BID [facility] Last Admin: 09/21/18 16:02 Dose: Not Given Silver Sulfadiazine (Silvadene 1% 25 Gm) 0 gm TP DAILY [facility] Last Admin: 09/20/18 18:43 Dose: 25 gm - Labs Labs: 09/22/18 06:50 09/22/18 06:50 - Constitutional Appears: Chronically Ill - Head Exam Head Exam: NORMOCEPHALIC - Eye Exam Eye Exam: Normal appearance, PERRL - ENT Exam ENT Exam: Mucous Membranes Moist - Respiratory Exam Respiratory Exam: Decreased Breath Sounds, Wheezes Additional comments: high flow 02 - Cardiovascular Exam Cardiovascular Exam: Tachycardia - GI/Abdominal Exam GI & Abdominal Exam: Soft, Hypoactive Bowel Sounds - Exam Additional comments: oliguria - Extremities Exam Extremities Exam: Pedal Edema - Neurological Exam Neurological Exam: Altered - Skin Skin Exam: Dry, Pallor Assessment and Plan - Assessment and Plan (Free Text) Assessment: 78 year old female with hsity of COPD, HTN, sacral decubiti, T5/T7 compression fractures, pulmonary hypertension, CAD who is admitted with sepsis, hypercapnic respiratory failure, JAJA, AMS The patients family at bedside. Daughter Alexus states that her mother is "doing better" and that family is very optimistic that she will pull through. I explained that the patient is still critically ill and reminded them of her other comorbidities. I expressed that the patient is not out of the [place]. Smita shahid wishes to continue aggressive treatment. She is scheduled for dialysis later this morning. Time spent with family in goals of care discussion, 15 minutes Plan: Goals of care JAJA: Dialysis this morning> Nephro following Sepsis:Continue Merrem, Doxycycline Sacral decubiti: Continue wound care. High flow 02, Bipap as needed> nebulaizers
--- NOTE | 2018-09-22 09:46 | RAD ---
Date of service: 09/22/2018 HISTORY: on Bipap COMPARISON: 09/21/2018 FINDINGS: LUNGS: No change in bilateral interstitial infiltrate. PLEURA: No significant pleural effusion identified, no pneumothorax apparent. CARDIOVASCULAR: Aortic calcification and tortuosity. Normal cardiac size. No pulmonary vascular congestion. OSSEOUS STRUCTURES: Sternal wires VISUALIZED UPPER ABDOMEN: Normal. OTHER FINDINGS: None. IMPRESSION: No change in bilateral interstitial infiltrates
[2018-09-22] MEDS: Sildenafil 20 MG TAB PO SCH ×3 (10:00→18:27)
[2018-09-22] MEDS: Mupirocin 2% Ointment 15 GM TUBE TOP SCH (10:06)
[2018-09-22] MEDS: Enoxaparin 30 mg Syringe SC SCH (10:09)
[2018-09-22] MEDS: POLYETHYLENE GLYCOL 3350 17 GM/Dose PACKET PO SCH ×2 (10:09→18:27)
[2018-09-22] MEDS: Lidocaine 2% Jelly (30 ml) TOP SCH (10:10)
[2018-09-22] MEDS: Silver Sulfadiazine 1% Cream (25 gm) TP SCH (10:11)
[2018-09-22] MEDS: MethylPREDNISolone 40 mg Vial IVP SCH ×2 (10:13→21:50)
--- NOTE | 2018-09-22 10:51 | CP.PCM.PN ---
<Luis Manuel Montoya - Last Filed: 09/22/18 10:47> Subjective - Date & Time of Evaluation Date of Evaluation: 09/22/18 Time of Evaluation: 10:47 - Subjective Subjective: Podiatry Progress Note: Dr. Denson 78 y/o F patient seen and evaluated at bedside with posterior right heel wound. Patient was awake at the time of the visit and breathing through Bi-Pap mask. Patient is still in the ICU. Patient is poor historian and her granddaughter was at the bed side. As per her chart there was no overnight nausea/vomiting/fever. There is no other pedal complaint at this time. Objective - Vital Signs/Intake and Output Vital Signs (last 24 hours): Temp Pulse Resp BP Pulse Ox 98.7 F 114 H 24 137/83 80 L 09/22/18 04:00 09/22/18 10:00 09/22/18 07:40 09/22/18 10:00 09/22/18 06:20 Intake and Output: 09/22/18 09/22/18 06:59 18:59 Intake Total 100 Output Total 1000 Balance -900 - Medications Medications: Current Medications Albuterol/Ipratropium (Duoneb 3 Mg/0.5 Mg (3 Ml) Ud) 3 ml IH Q1H PRN PRN Reason: Shortness of Breath Last Admin: 09/18/18 08:32 Dose: 3 ml Albuterol/Ipratropium (Duoneb 3 Mg/0.5 Mg (3 Ml) Ud) 3 ml IH [id number] [facility] Last Admin: 09/22/18 07:38 Dose: 3 ml Arformoterol Tartrate (Brovana) 15 mcg IH [id number] [facility] Last Admin: 09/22/18 07:37 Dose: 15 mcg Aspirin (Ecotrin) 81 mg PO DAILY [facility] Last Admin: 09/21/18 15:59 Dose: Not Given Atorvastatin Calcium (Lipitor) 20 mg PO DIN [facility] Last Admin: 09/20/18 17:39 Dose: Not Given Budesonide (Pulmicort Respules) 0.5 mg IH [id number] [facility] Last Admin: 09/21/18 20:13 Dose: 0.5 mg Doxycycline Hyclate (Doryx) 100 mg PO Q12 [facility]; Protocol Last Admin: 09/22/18 10:06 Dose: Not Given Enoxaparin Sodium (Lovenox) 30 mg SC DAILY [facility]; Protocol Last Admin: 09/22/18 10:09 Dose: 30 mg Escitalopram Oxalate (Lexapro) 10 mg PO DAILY [facility] Last Admin: 09/22/18 10:06 Dose: Not Given Famotidine (Pepcid) 20 mg PO HS [facility] Last Admin: 09/21/18 22:05 Dose: Not Given Meropenem 250 mg/ Sodium (Chloride) 100 mls @ 100 mls/hr IVPB Q12H [facility]; Protocol Stop: 09/27/18 06:16 Last Admin: 09/22/18 05:59 Dose: 100 mls/hr Lidocaine HCl (Xylocaine 2%) 1 ea TOP DAILY [facility] Last Admin: 09/22/18 10:10 Dose: 1 applic Methylprednisolone (Solu-Medrol) 40 mg IVP Q12 [facility] Last Admin: 09/22/18 10:13 Dose: 40 mg Metoprolol Tartrate (Lopressor) 50 mg PO BID [facility] Last Admin: 09/21/18 17:28 Dose: Not Given Metoprolol Tartrate (Lopressor) 5 mg IVP Q6H [facility] Last Admin: 09/22/18 10:00 Dose: 5 mg Montelukast Sodium (Singulair) 10 mg PO HS [facility] Last Admin: 09/21/18 22:10 Dose: Not Given Mupirocin (Bactroban Ointment) 0 gm TOP DAILY [facility] Stop: 09/29/18 10:01 Last Admin: 09/22/18 10:06 Dose: 1 applic Oxycodone HCl (Oxycodone Immediate Release Tab) 10 mg PO Q6H PRN PRN Reason: Pain, moderate (4-7) Last Admin: 09/15/18 17:53 Dose: 10 mg Pantoprazole Sodium (Protonix Inj) 40 mg IVP DAILY [facility] Last Admin: 09/22/18 10:09 Dose: 40 mg Polyethylene Glycol (Miralax) 17 gm PO BID [facility] Last Admin: 09/22/18 10:09 Dose: Not Given Pregabalin (Lyrica) 50 mg PO HS [facility] Last Admin: 09/21/18 22:20 Dose: Not Given Sildenafil Citrate (Revatio) 20 mg PO BID [facility] Last Admin: 09/21/18 16:02 Dose: Not Given Silver Sulfadiazine (Silvadene 1% 25 Gm) 0 gm TP DAILY [facility] Last Admin: 09/22/18 10:11 Dose: 25 gm - Labs Labs: 09/22/18 06:50 09/22/18 06:50 - Head Exam Head Exam: ATRAUMATIC - Extremities Exam Additional comments: RLE focused exam: Vasc: DP/PT pulses fully palpable 2/4 b/l. Skin temperature gradient warm to warm from proximal to distal. Cap refill < 3 seconds to all digits b/l. No edema noted b/l Neuro: Gross and protective sensation grossly intact b/l. Derm: Posterior right heel ulceration measuring 2.1 cm X 1.5 cm with 10% fibrotic and 90% granular base, superficial, negative probe to bone, mild isabel- wound erythema, positive mild serous drainage, Slight maceration. No other open lesions, wounds, xerosis, abnormal pigmentation or abnormal growths noted b/l. Erythema noted over her right HAV medial eminence. MSK: B/l HAV deformities noted. No other gross deformities noted. ROM WNL to all major joints b/l. MMT 5/5 in all major muscle groups b/l. - Neurological Exam Neurological Exam: Alert, Awake Assessment and Plan - Assessment and Plan (Free Text) Assessment: 78 y/o F patient with posterior right heel decubitous ulceration. Plan: Patient seen and evaluated Discussed with attending Dr. Denson Charts, labs and vitals reviewed; Afebrile,WBCs 13.1 Wound Culture: Coag neg staph Right Heel X-ray: no signs of OM R MRI; bone marrow edema in calcaneus without evidence of cortical destruction or erosion likely represent bone marrow reaction, possibility of OM less likely Patient to wear Multipodus boots at all times while in bed ID consulted; Reccs appreciated. Continue IV abx as per ID Wound cleansed with saline then dressed with bactroban and optifoam. Podiatry will continue to follow up patient while in house <Angel Denson - Last Filed: 09/22/18 17:10> Objective - Vital Signs/Intake and Output Vital Signs (last 24 hours): Temp Pulse Resp BP Pulse Ox 99 F 90 26 H 129/76 98 09/22/18 12:00 09/22/18 16:00 09/22/18 12:30 09/22/18 14:00 09/22/18 12:30 Intake and Output: 09/22/18 09/22/18 06:59 18:59 Intake Total 100 Output Total 1000 Balance -900 - Medications Medications: Current Medications Albuterol/Ipratropium (Duoneb 3 Mg/0.5 Mg (3 Ml) Ud) 3 ml IH Q1H PRN PRN Reason: Shortness of Breath Last Admin: 09/18/18 08:32 Dose: 3 ml Albuterol/Ipratropium (Duoneb 3 Mg/0.5 Mg (3 Ml) Ud) 3 ml IH [id number] [facility] Last Admin: 09/22/18 13:07 Dose: 3 ml Arformoterol Tartrate (Brovana) 15 mcg IH [id number] [facility] Last Admin: 09/22/18 07:37 Dose: 15 mcg Aspirin (Ecotrin) 81 mg PO DAILY [facility] Last Admin: 09/22/18 12:48 Dose: 81 mg Atorvastatin Calcium (Lipitor) 20 mg PO DIN [facility] Last Admin: 09/20/18 17:39 Dose: Not Given Budesonide (Pulmicort Respules) 0.5 mg IH [id number] [facility] Last Admin: 09/21/18 20:13 Dose: 0.5 mg Digoxin (Lanoxin) 0.25 mg IVP ONCE ONE Stop: 09/22/18 19:01 Doxycycline Hyclate (Doryx) 100 mg PO Q12 [facility]; Protocol Last Admin: 09/22/18 10:06 Dose: Not Given Enoxaparin Sodium (Lovenox) 30 mg SC DAILY [facility]; Protocol Last Admin: 09/22/18 10:09 Dose: 30 mg Escitalopram Oxalate (Lexapro) 10 mg PO DAILY [facility] Last Admin: 09/22/18 10:06 Dose: Not Given Famotidine (Pepcid) 20 mg PO HS [facility] Last Admin: 09/21/18 22:05 Dose: Not Given Meropenem 250 mg/ Sodium (Chloride) 100 mls @ 100 mls/hr IVPB Q12H [facility]; Protocol Stop: 09/27/18 06:16 Last Admin: 09/22/18 05:59 Dose: 100 mls/hr Lidocaine HCl (Xylocaine 2%) 1 ea TOP DAILY [facility] Last Admin: 09/22/18 10:10 Dose: 1 applic Methylprednisolone (Solu-Medrol) 40 mg IVP Q12 [facility] Last Admin: 09/22/18 10:13 Dose: 40 mg Metoprolol Tartrate (Lopressor) 50 mg PO BID [facility] Last Admin: 09/21/18 17:28 Dose: Not Given Montelukast Sodium (Singulair) 10 mg PO HS [facility] Last Admin: 09/21/18 22:10 Dose: Not Given Mupirocin (Bactroban Ointment) 0 gm TOP DAILY [facility] Stop: 09/29/18 10:01 Last Admin: 09/22/18 10:06 Dose: 1 applic Pantoprazole Sodium (Protonix Inj) 40 mg IVP DAILY [facility] Polyethylene Glycol (Miralax) 17 gm PO BID [facility] Last Admin: 09/22/18 10:09 Dose: Not Given Pregabalin (Lyrica) 50 mg PO HS [facility] Last Admin: 09/21/18 22:20 Dose: Not Given Sildenafil Citrate (Revatio) 20 mg PO BID [facility] Last Admin: 09/22/18 12:47 Dose: 20 mg Silver Sulfadiazine (Silvadene 1% 25 Gm) 0 gm TP DAILY [facility] Last Admin: 09/22/18 10:11 Dose: 25 gm Verapamil HCl (Verapamil Inj) 2.5 mg IVP Q6H PRN PRN Reason: For heart rate >120 - Labs Labs: 09/22/18 06:50 09/22/18 06:50 Attending/Attestation - Attestation I have personally seen and examined this patient.: Yes I have fully participated in the care of the patient.: Yes I have reviewed all pertinent clinical information, including history, physical exam and plan: Yes
--- NOTE | 2018-09-22 11:42 | CP.CCUPN ---
<Bernadine White - Last Filed: 09/22/18 11:32> CCU Subjective - Physician Review Subjective (Free Text): 09/22/18 11:32 Bernadine White, PGY-1 ICU Progress Note Pt was seen and examined this AM with ICU team. Pt is more responsive today, but is still only AOx1. ROS is limited due to pt only being AOx1. Pt is on Bipap and sating well. Weaning attempt off of bipap made, but pt did not successfully wean off. Pt continues to be on bipap and will have dialysis tomorrow. CCU Objective - Vital Signs / Intake & Output Vital Signs (Last 4 hours): Vital Signs Pulse Resp BP 09/22/18 10:00 114 H 137/83 09/22/18 09:33 123 H 09/22/18 07:40 24 Intake and Output (Last 8hrs): Intake & Output 09/21/18 09/22/18 09/22/18 22:59 06:59 14:59 Intake Total 100 Output Total 1000 Balance -900 Intake: IV 100 Right Subclavian 100 Output: Urine 1000 2-way Urethral 1000 Other: # Bowel Movements 3 - Physical Exam Head: Positive for: Atraumatic, Normocephalic, Contusion (over the left eyebrow, no stepoff). Negative for: Tenderness (no tenderness to plapation over the contusion) Pupils: Positive for: PERRL Extroacular Muscles: Positive for: EOMI Conjunctiva: Positive for: Normal Mouth: Positive for: Moist Mucous Membranes Neck: Positive for: Normal Range of Motion Respiratory/Chest: Positive for: Clear to Auscultation, Good Air Exchange, Wheezes (end expiratory wheezes), Rhonchi (diffuse rhonchi ), Other ([place] to the right upper chest wall. ). Negative for: Respiratory Distress, Accessory Muscle Use Cardiovascular: Positive for: Regular Rate and Rhythm, Normal S1, S2. Negative for: Murmurs Abdomen: Positive for: Normal Bowel Sounds. Negative for: Tenderness, D istention, Peritoneal Signs Back: Positive for: Normal Inspection, Decubitus Ulcer (foul odor, left buttock open wound 5x6cm, w/surrounding erythema, not draining; right buttock 2.5x3 cm not open, erythematous; + increased warmth; no streaking from either wound) Upper Extremity: Positive for: Normal Inspection. Negative for: Cyanosis, Edema Lower Extremity: Positive for: Edema (2+ bilateral lower extremity pitting edema ) Neurological: Positive for: GCS=15, CN II-XII Intact, Speech Normal Skin: Positive for: Warm, Dry, Normal Color, Other (Patient has foul smelling wounds on buttocks. Left buttocks: stage 1, open wound. Right buttocks: skin break down 2 1/2 by 3 inches). Negative for: Rashes Psychiatric: Positive for: Alert (only oriented to person) - Medications Active Medications: Active Medications Generic Name Dose Route Start Last Admin Trade Name Freq PRN Reason Stop Dose Admin Albuterol/Ipratropium 3 ml 09/18/18 08:26 09/18/18 08:32 Duoneb 3 Mg/0.5 Mg (3 Ml) Ud IH 3 ml Q1H PRN Administration Shortness of Breath Albuterol/Ipratropium 3 ml 09/21/18 14:00 09/22/18 07:38 Duoneb 3 Mg/0.5 Mg (3 Ml) Ud IH 3 ml [id number] TORI Administration Arformoterol Tartrate 15 mcg 09/13/18 20:00 09/22/18 07:37 Brovana IH 15 mcg [id number] TORI Administration Aspirin 81 mg 09/14/18 10:00 09/21/18 15:59 Ecotrin PO Not Given DAILY TORI Atorvastatin Calcium 20 mg 09/14/18 17:00 09/20/18 17:39 Lipitor PO Not Given DIN TORI Budesonide 0.5 mg 09/15/18 08:00 09/21/18 20:13 Pulmicort Respules IH 0.5 mg [id number] TORI Administration Doxycycline Hyclate 100 mg 09/13/18 22:00 09/22/18 10:06 Doryx PO Not Given Q12 TORI Protocol Enoxaparin Sodium 30 mg 09/17/18 16:15 09/22/18 10:09 Lovenox SC 30 mg DAILY TORI Administration Protocol Escitalopram Oxalate 10 mg 09/14/18 10:00 09/22/18 10:06 Lexapro PO Not Given DAILY TORI Famotidine 20 mg 09/20/18 07:54 09/21/18 22:05 Pepcid PO Not Given HS TORI Meropenem 250 mg/ Sodium 100 mls @ 100 mls/hr 09/20/18 06:15 09/22/18 05:59 Chloride IVPB 09/27/18 06:16 100 mls/hr Q12H TORI Administration Protocol Lidocaine HCl 1 ea 09/20/18 10:40 09/22/18 10:10 Xylocaine 2% TOP 1 applic DAILY TORI Administration Methylprednisolone 40 mg 09/22/18 10:00 09/22/18 10:13 Solu-Medrol IVP 40 mg Q12 TORI Administration Metoprolol Tartrate 50 mg 09/13/18 19:30 09/21/18 17:28 Lopressor PO Not Given BID TORI Metoprolol Tartrate 5 mg 09/21/18 18:00 09/22/18 10:00 Lopressor IVP 5 mg Q6H TORI Administration Montelukast Sodium 10 mg 09/13/18 22:00 09/21/18 22:10 Singulair PO Not Given HS TORI Mupirocin 0 gm 09/20/18 10:00 09/22/18 10:06 Bactroban Ointment TOP 09/29/18 10:01 1 applic DAILY TORI Administration Oxycodone HCl 10 mg 09/13/18 19:19 09/15/18 17:53 Oxycodone Immediate Release Tab PO 10 mg Q6H PRN Administration Pain, moderate (4-7) Pantoprazole Sodium 40 mg 09/23/18 07:30 Protonix Ec Tab PO ACB TORI Polyethylene Glycol 17 gm 09/14/18 10:00 09/22/18 10:09 Miralax PO Not Given BID [facility] Pregabalin 50 mg 09/13/18 22:00 09/21/18 22:20 Lyrica PO Not Given HS [facility] Sildenafil Citrate 20 mg 09/13/18 19:30 09/21/18 16:02 Revatio PO Not Given BID [facility] Silver Sulfadiazine 0 gm 09/14/18 10:00 09/22/18 10:11 Silvadene 1% 25 Gm TP 25 gm DAILY TORI Administration - Patient Studies Lab Studies: Microbiology Studies 09/20/18 07:00 Blood Culture - Preliminary Blood-Venous NO GROWTH AFTER 48 HOURS 09/20/18 06:40 Blood Culture - Preliminary Blood-Venous NO GROWTH AFTER 48 HOURS Lab Studies 09/22/18 09/22/18 09/22/18 Range/Units 06:50 06:50 05:45 WBC 13.1 H D (4.5-11.0) 10^3/uL RBC 3.26 L (3.5-6.1) 10^6/uL Hgb 9.3 L (12.0-16.0) g/dL Hct 28.9 L (36.0-48.0) % MCV 88.7 (80.0-105.0) fl MCH 28.5 (25.0-35.0) pg MCHC 32.2 (31.0-37.0) g/dl RDW 18.8 H (11.5-14.5) % Plt Count 155 (120.0-450.0) 10^3/uL MPV 10.5 (7.0-11.0) fl Neut % (Auto) 96.1 H (50.0-68.0) % Lymph % (Auto) 1.8 L (22.0-35.0) % [place] % (Auto) 2.0 (1.0-6.0) % Eos % (Auto) 0.0 L (1.5-5.0) % Baso % (Auto) 0.1 (0.0-3.0) % Lymph # (Auto) 0.2 L (1.2-3.4) [place] # (Auto) 0.3 (0.1-0.6) Eos # (Auto) 0.0 (0.0-0.7) Baso # (Auto) 0.01 (0.0-2.0) K/mm3 Absolute Neuts (auto) 12.55 H (1.4-6.5) Neutrophils % (Manual) 97 H (50.0-70.0) % Band Neutrophils % 1 (0-2) % Lymphocytes % (Manual) 1 L (22.0-35.0) % Monocytes % (Manual) 1 (1.0-6.0) % Platelet Evaluation Normal (NORMAL) pCO2 35 (35-45) mm/Hg pO2 74.0 L (80-100) mm/Hg HCO3 26.7 (21-28) mmol/L ABG pH 7.49 H (7.35-7.45) ABG Total CO2 27.8 (22-28) mmol.L ABG O2 Saturation 96.9 (95-98) % ABG O2 Content 14.2 L (15-23) ML/dl ABG Base Excess 3.4 H (-2.0-3.0) mmol/L ABG Hemoglobin 10.6 L (11.7-17.4) g/dL ABG Carboxyhemoglobin 1.6 H (0.5-1.5) % POC ABG HHb (Measured) 3.0 (0-5) % ABG Methemoglobin 0.8 (0.0-3.0) % ABG O2 Capacity 14.7 L (16-24) mL/dl Hgb O2 Saturation 94.6 L (95.0-98.0) % FiO2 60.0 % Sodium 139 (132-148) mmol/L Potassium 4.0 (3.6-5.0) mmol/L Chloride 105 (98-107) mmol/L Carbon Dioxide 27 (21-33) mmol/L Anion Gap 12 (10-20) BUN 31 H (7-21) mg/dL Creatinine 2.9 H (0.7-1.2) mg/dl Est GFR ( Amer) 19 Est GFR (Non-Af Amer) 16 Random Glucose 80 (70-110) mg/dL Calcium 8.9 (8.4-10.5) mg/dL Total Bilirubin 0.8 (0.2-1.3) mg/dL AST 50 H (14-36) U/L ALT 30 (7-56) U/L Alkaline Phosphatase 89 (38-126) U/L Total Protein 4.9 L (5.8-8.3) g/dL Albumin 2.4 L (3.0-4.8) g/dL Globulin 2.4 gm/dL Albumin/Globulin Ratio 1.0 L (1.1-1.8) Ur Random Creatinine mg/dL Ur Random Sodium meq/L Blood Type Antibody Screen Crossmatch BBK History Checked 09/21/18 09/21/18 Range/Units 18:00 09:07 WBC (4.5-11.0) 10^3/uL RBC (3.5-6.1) 10^6/uL Hgb (12.0-16.0) g/dL Hct (36.0-48.0) % MCV (80.0-105.0) fl MCH (25.0-35.0) pg MCHC (31.0-37.0) g/dl RDW (11.5-14.5) % Plt Count (120.0-450.0) 10^3/uL MPV (7.0-11.0) fl Neut % (Auto) (50.0-68.0) % Lymph % (Auto) (22.0-35.0) % [place] % (Auto) (1.0-6.0) % Eos % (Auto) (1.5-5.0) % Baso % (Auto) (0.0-3.0) % Lymph # (Auto) (1.2-3.4) [place] # (Auto) (0.1-0.6) Eos # (Auto) (0.0-0.7) Baso # (Auto) (0.0-2.0) K/mm3 Absolute Neuts (auto) (1.4-6.5) Neutrophils % (Manual) (50.0-70.0) % Band Neutrophils % (0-2) % Lymphocytes % (Manual) (22.0-35.0) % Monocytes % (Manual) (1.0-6.0) % Platelet Evaluation (NORMAL) pCO2 (35-45) mm/Hg pO2 (80-100) mm/Hg HCO3 (21-28) mmol/L ABG pH (7.35-7.45) ABG Total CO2 (22-28) mmol.L ABG O2 Saturation (95-98) % ABG O2 Content (15-23) ML/dl ABG Base Excess (-2.0-3.0) mmol/L ABG Hemoglobin (11.7-17.4) g/dL ABG Carboxyhemoglobin (0.5-1.5) % POC ABG HHb (Measured) (0-5) % ABG Methemoglobin (0.0-3.0) % ABG O2 Capacity (16-24) mL/dl Hgb O2 Saturation (95.0-98.0) % FiO2 % Sodium (132-148) mmol/L Potassium (3.6-5.0) mmol/L Chloride (98-107) mmol/L Carbon Dioxide (21-33) mmol/L Anion Gap (10-20) BUN (7-21) mg/dL Creatinine (0.7-1.2) mg/dl Est GFR ( Amer) Est GFR (Non-Af Amer) Random Glucose (70-110) mg/dL Calcium (8.4-10.5) mg/dL Total Bilirubin (0.2-1.3) mg/dL AST (14-36) U/L ALT (7-56) U/L Alkaline Phosphatase (38-126) U/L Total Protein (5.8-8.3) g/dL Albumin (3.0-4.8) g/dL Globulin gm/dL Albumin/Globulin Ratio (1.1-1.8) Ur Random Creatinine 26 mg/dL Ur Random Sodium 93 meq/L Blood Type O POSITIVE Antibody Screen Negative Crossmatch See Detail BBK History Checked Patient has bt Laboratory Results - last 24 hr 09/21/18 09/21/18 09/22/18 09:07 18:00 05:45 WBC RBC Hgb Hct MCV MCH MCHC RDW Plt Count MPV Neut % (Auto) Lymph % (Auto) [place] % (Auto) Eos % (Auto) Baso % (Auto) Lymph # (Auto) [place] # (Auto) Eos # (Auto) Baso # (Auto) Absolute Neuts (auto) Neutrophils % (Manual) Band Neutrophils % Lymphocytes % (Manual) Monocytes % (Manual) Platelet Evaluation pCO2 35 pO2 74.0 L HCO3 26.7 ABG pH 7.49 H ABG Total CO2 27.8 ABG O2 Saturation 96.9 ABG O2 Content 14.2 L ABG Base Excess 3.4 H ABG Hemoglobin 10.6 L ABG Carboxyhemoglobin 1.6 H POC ABG HHb (Measured) 3.0 ABG Methemoglobin 0.8 ABG O2 Capacity 14.7 L Hgb O2 Saturation 94.6 L FiO2 60.0 Sodium Potassium Chloride Carbon Dioxide Anion Gap BUN Creatinine Est GFR ( Amer) Est GFR (Non-Af Amer) Random Glucose Calcium Total Bilirubin AST ALT Alkaline Phosphatase Total Protein Albumin Globulin Albumin/Globulin Ratio Ur Random Creatinine 26 Ur Random Sodium 93 Blood Type O POSITIVE Antibody Screen Negative Crossmatch See Detail BBK History Checked Patient has bt 09/22/18 09/22/18 06:50 06:50 WBC 13.1 H D RBC 3.26 L Hgb 9.3 L Hct 28.9 L MCV 88.7 MCH 28.5 MCHC 32.2 RDW 18.8 H Plt Count 155 MPV 10.5 Neut % (Auto) 96.1 H Lymph % (Auto) 1.8 L [place] % (Auto) 2.0 Eos % (Auto) 0.0 L Baso % (Auto) 0.1 Lymph # (Auto) 0.2 L [place] # (Auto) 0.3 Eos # (Auto) 0.0 Baso # (Auto) 0.01 Absolute Neuts (auto) 12.55 H Neutrophils % (Manual) 97 H Band Neutrophils % 1 Lymphocytes % (Manual) 1 L Monocytes % (Manual) 1 Platelet Evaluation Normal pCO2 pO2 HCO3 ABG pH ABG Total CO2 ABG O2 Saturation ABG O2 Content ABG Base Excess ABG Hemoglobin ABG Carboxyhemoglobin POC ABG HHb (Measured) ABG Methemoglobin ABG O2 Capacity Hgb O2 Saturation FiO2 Sodium 139 Potassium 4.0 Chloride 105 Carbon Dioxide 27 Anion Gap 12 BUN 31 H Creatinine 2.9 H Est GFR ( Amer) 19 Est GFR (Non-Af Amer) 16 Random Glucose 80 Calcium 8.9 Total Bilirubin 0.8 AST 50 H ALT 30 Alkaline Phosphatase 89 Total Protein 4.9 L Albumin 2.4 L Globulin 2.4 Albumin/Globulin Ratio 1.0 L Ur Random Creatinine Ur Random Sodium Blood Type Antibody Screen Crossmatch BBK History Checked Radiology Impressions: Radiology Impressions Chest X-Ray 09/22/18 06:00 IMPRESSION: No change in bilateral interstitial infiltrates Critical Care Progress Note - Nutrition Nutrition: Nutrition Category Date Time Status Heart Healthy Diet [DIET] Diets 09/13/18 Dinner Active Assessment/Plan - Assessment and Plan (Free Text) Assessment: 78yo F with PMHx of Metastatic Breast CA, COPD, Pulm HTN, CKD, PVD, GERD, who is ICU was consulted for due to acute hypoxic resp failure and multi-organ failure. Pt continues to be on Bipap after weaning trial failed. Will be getting dialysis tomorrow. Plan: Neuro: - AOx1 - Will cont to monitor Pulm: - Pt is tolerating Bipap well on 80% FiO2, weaning attempt failed, will retry tomorrow - CXR: No change in b/l infiltrates - Abx per ID recs - Procal elevated - Cont duonebs, brovana, pulmicort as ordered - Solumedrol 40mg IV BID - cont Sildenafil - Maintain O2 sat >88% Cardio: - BP control - Cont Asa, Lipitor, lopressor - would DC Lasix - follow up cardio Endo - FS control Heme: - Hgb went down to 7.6 yesterday. Was transfused 1 unit PRBC - Pts hgb is now 9.3, and has responded appropriately to transfusion. GI - LTFs downtrending - Pepcid Nephro: - Tolerated HD sessions, will have next session tomorrow. - Nephro recs appreciated GI: Pepcid DVT: Lovenox Case seen and discussed with Dr. Jose White, PGY-1 <Janak Garcia - Last Filed: 09/22/18 12:08> CCU Objective - Vital Signs / Intake & Output Vital Signs (Last 4 hours): Vital Signs Pulse BP 09/22/18 10:00 114 H 137/83 09/22/18 09:33 123 H Intake and Output (Last 8hrs): Intake & Output 09/21/18 09/22/18 09/22/18 22:59 06:59 14:59 Intake Total 100 Output Total 1000 Balance -900 Intake: IV 100 Right Subclavian 100 Output: Urine 1000 2-way Urethral 1000 Other: # Bowel Movements 3 - Medications Active Medications: Active Medications Generic Name Dose Route Start Last Admin Trade Name Freq PRN Reason Stop Dose Admin Albuterol/Ipratropium 3 ml 09/18/18 08:26 09/18/18 08:32 Duoneb 3 Mg/0.5 Mg (3 Ml) Ud IH 3 ml Q1H PRN Administration Shortness of Breath Albuterol/Ipratropium 3 ml 09/21/18 14:00 09/22/18 07:38 Duoneb 3 Mg/0.5 Mg (3 Ml) Ud IH 3 ml [id number] TORI Administration Arformoterol Tartrate 15 mcg 09/13/18 20:00 09/22/18 07:37 Brovana IH 15 mcg [id number] TORI Administration Aspirin 81 mg 09/14/18 10:00 09/21/18 15:59 Ecotrin PO Not Given DAILY TORI Atorvastatin Calcium 20 mg 09/14/18 17:00 09/20/18 17:39 Lipitor PO Not Given DIN TORI Budesonide 0.5 mg 09/15/18 08:00 09/21/18 20:13 Pulmicort Respules IH 0.5 mg [id number] TORI Administration Doxycycline Hyclate 100 mg 09/13/18 22:00 09/22/18 10:06 Doryx PO Not Given Q12 TORI Protocol Enoxaparin Sodium 30 mg 09/17/18 16:15 09/22/18 10:09 Lovenox SC 30 mg DAILY TORI Administration Protocol Escitalopram Oxalate 10 mg 09/14/18 10:00 09/22/18 10:06 Lexapro PO Not Given DAILY TORI Famotidine 20 mg 09/20/18 07:54 09/21/18 22:05 Pepcid PO Not Given HS TORI Meropenem 250 mg/ Sodium 100 mls @ 100 mls/hr 09/20/18 06:15 09/22/18 05:59 Chloride IVPB 09/27/18 06:16 100 mls/hr Q12H TORI Administration Protocol Lidocaine HCl 1 ea 09/20/18 10:40 09/22/18 10:10 Xylocaine 2% TOP 1 applic DAILY TORI Administration Methylprednisolone 40 mg 09/22/18 10:00 09/22/18 10:13 Solu-Medrol IVP 40 mg Q12 TORI Administration Metoprolol Tartrate 50 mg 09/13/18 19:30 09/21/18 17:28 Lopressor PO Not Given BID TORI Metoprolol Tartrate 5 mg 09/21/18 18:00 09/22/18 10:00 Lopressor IVP 5 mg Q6H TORI Administration Montelukast Sodium 10 mg 09/13/18 22:00 09/21/18 22:10 Singulair PO Not Given HS TORI Mupirocin 0 gm 09/20/18 10:00 09/22/18 10:06 Bactroban Ointment TOP 09/29/18 10:01 1 applic DAILY TORI Administration Oxycodone HCl 10 mg 09/13/18 19:19 09/15/18 17:53 Oxycodone Immediate Release Tab PO 10 mg Q6H PRN Administration Pain, moderate (4-7) Pantoprazole Sodium 40 mg 09/23/18 07:30 Protonix Ec Tab PO ACB TORI Polyethylene Glycol 17 gm 09/14/18 10:00 09/22/18 10:09 Miralax PO Not Given BID TORI Pregabalin 50 mg 09/13/18 22:00 09/21/18 22:20 Lyrica PO Not Given HS TORI Sildenafil Citrate 20 mg 09/13/18 19:30 09/21/18 16:02 Revatio PO Not Given BID TORI Silver Sulfadiazine 0 gm 09/14/18 10:00 09/22/18 10:11 Silvadene 1% 25 Gm TP 25 gm DAILY TORI Administration - Patient Studies Lab Studies: Microbiology Studies 09/20/18 07:00 Blood Culture - Preliminary Blood-Venous NO GROWTH AFTER 48 HOURS 09/20/18 06:40 Blood Culture - Preliminary Blood-Venous NO GROWTH AFTER 48 HOURS Lab Studies 09/22/18 09/22/18 09/22/18 Range/Units 06:50 06:50 05:45 WBC 13.1 H D (4.5-11.0) 10^3/uL RBC 3.26 L (3.5-6.1) 10^6/uL Hgb 9.3 L (12.0-16.0) g/dL Hct 28.9 L (36.0-48.0) % MCV 88.7 (80.0-105.0) fl MCH 28.5 (25.0-35.0) pg MCHC 32.2 (31.0-37.0) g/dl RDW 18.8 H (11.5-14.5) % Plt Count 155 (120.0-450.0) 10^3/uL MPV 10.5 (7.0-11.0) fl Neut % (Auto) 96.1 H (50.0-68.0) % Lymph % (Auto) 1.8 L (22.0-35.0) % [place] % (Auto) 2.0 (1.0-6.0) % Eos % (Auto) 0.0 L (1.5-5.0) % Baso % (Auto) 0.1 (0.0-3.0) % Lymph # (Auto) 0.2 L (1.2-3.4) [place] # (Auto) 0.3 (0.1-0.6) Eos # (Auto) 0.0 (0.0-0.7) Baso # (Auto) 0.01 (0.0-2.0) K/mm3 Absolute Neuts (auto) 12.55 H (1.4-6.5) Neutrophils % (Manual) 97 H (50.0-70.0) % Band Neutrophils % 1 (0-2) % Lymphocytes % (Manual) 1 L (22.0-35.0) % Monocytes % (Manual) 1 (1.0-6.0) % Platelet Evaluation Normal (NORMAL) pCO2 35 (35-45) mm/Hg pO2 74.0 L (80-100) mm/Hg HCO3 26.7 (21-28) mmol/L ABG pH 7.49 H (7.35-7.45) ABG Total CO2 27.8 (22-28) mmol.L ABG O2 Saturation 96.9 (95-98) % ABG O2 Content 14.2 L (15-23) ML/dl ABG Base Excess 3.4 H (-2.0-3.0) mmol/L ABG Hemoglobin 10.6 L (11.7-17.4) g/dL ABG Carboxyhemoglobin 1.6 H (0.5-1.5) % POC ABG HHb (Measured) 3.0 (0-5) % ABG Methemoglobin 0.8 (0.0-3.0) % ABG O2 Capacity 14.7 L (16-24) mL/dl Hgb O2 Saturation 94.6 L (95.0-98.0) % FiO2 60.0 % Sodium 139 (132-148) mmol/L Potassium 4.0 (3.6-5.0) mmol/L Chloride 105 (98-107) mmol/L Carbon Dioxide 27 (21-33) mmol/L Anion Gap 12 (10-20) BUN 31 H (7-21) mg/dL Creatinine 2.9 H (0.7-1.2) mg/dl Est GFR ( Amer) 19 Est GFR (Non-Af Amer) 16 Random Glucose 80 (70-110) mg/dL Calcium 8.9 (8.4-10.5) mg/dL Total Bilirubin 0.8 (0.2-1.3) mg/dL AST 50 H (14-36) U/L ALT 30 (7-56) U/L Alkaline Phosphatase 89 (38-126) U/L Total Protein 4.9 L (5.8-8.3) g/dL Albumin 2.4 L (3.0-4.8) g/dL Globulin 2.4 gm/dL Albumin/Globulin Ratio 1.0 L (1.1-1.8) Ur Random Creatinine mg/dL Ur Random Sodium meq/L Blood Type Antibody Screen Crossmatch BBK History Checked 09/21/18 09/21/18 Range/Units 18:00 09:07 WBC (4.5-11.0) 10^3/uL RBC (3.5-6.1) 10^6/uL Hgb (12.0-16.0) g/dL Hct (36.0-48.0) % MCV (80.0-105.0) fl MCH (25.0-35.0) pg MCHC (31.0-37.0) g/dl RDW (11.5-14.5) % Plt Count (120.0-450.0) 10^3/uL MPV (7.0-11.0) fl Neut % (Auto) (50.0-68.0) % Lymph % (Auto) (22.0-35.0) % [place] % (Auto) (1.0-6.0) % Eos % (Auto) (1.5-5.0) % Baso % (Auto) (0.0-3.0) % Lymph # (Auto) (1.2-3.4) [place] # (Auto) (0.1-0.6) Eos # (Auto) (0.0-0.7) Baso # (Auto) (0.0-2.0) K/mm3 Absolute Neuts (auto) (1.4-6.5) Neutrophils % (Manual) (50.0-70.0) % Band Neutrophils % (0-2) % Lymphocytes % (Manual) (22.0-35.0) % Monocytes % (Manual) (1.0-6.0) % Platelet Evaluation (NORMAL) pCO2 (35-45) mm/Hg pO2 (80-100) mm/Hg HCO3 (21-28) mmol/L ABG pH (7.35-7.45) ABG Total CO2 (22-28) mmol.L ABG O2 Saturation (95-98) % ABG O2 Content (15-23) ML/dl ABG Base Excess (-2.0-3.0) mmol/L ABG Hemoglobin (11.7-17.4) g/dL ABG Carboxyhemoglobin (0.5-1.5) % POC ABG HHb (Measured) (0-5) % ABG Methemoglobin (0.0-3.0) % ABG O2 Capacity (16-24) mL/dl Hgb O2 Saturation (95.0-98.0) % FiO2 % Sodium (132-148) mmol/L Potassium (3.6-5.0) mmol/L Chloride (98-107) mmol/L Carbon Dioxide (21-33) mmol/L Anion Gap (10-20) BUN (7-21) mg/dL Creatinine (0.7-1.2) mg/dl Est GFR ( Amer) Est GFR (Non-Af Amer) Random Glucose (70-110) mg/dL Calcium (8.4-10.5) mg/dL Total Bilirubin (0.2-1.3) mg/dL AST (14-36) U/L ALT (7-56) U/L Alkaline Phosphatase (38-126) U/L Total Protein (5.8-8.3) g/dL Albumin (3.0-4.8) g/dL Globulin gm/dL Albumin/Globulin Ratio (1.1-1.8) Ur Random Creatinine 26 mg/dL Ur Random Sodium 93 meq/L Blood Type O POSITIVE Antibody Screen Negative Crossmatch See Detail BBK History Checked Patient has bt Laboratory Results - last 24 hr 09/21/18 09/21/18 09/22/18 09:07 18:00 05:45 WBC RBC Hgb Hct MCV MCH MCHC RDW Plt Count MPV Neut % (Auto) Lymph % (Auto) [place] % (Auto) Eos % (Auto) Baso % (Auto) Lymph # (Auto) [place] # (Auto) Eos # (Auto) Baso # (Auto) Absolute Neuts (auto) Neutrophils % (Manual) Band Neutrophils % Lymphocytes % (Manual) Monocytes % (Manual) Platelet Evaluation pCO2 35 pO2 74.0 L HCO3 26.7 ABG pH 7.49 H ABG Total CO2 27.8 ABG O2 Saturation 96.9 ABG O2 Content 14.2 L ABG Base Excess 3.4 H ABG Hemoglobin 10.6 L ABG Carboxyhemoglobin 1.6 H POC ABG HHb (Measured) 3.0 ABG Methemoglobin 0.8 ABG O2 Capacity 14.7 L Hgb O2 Saturation 94.6 L FiO2 60.0 Sodium Potassium Chloride Carbon Dioxide Anion Gap BUN Creatinine Est GFR ( Amer) Est GFR (Non-Af Amer) Random Glucose Calcium Total Bilirubin AST ALT Alkaline Phosphatase Total Protein Albumin Globulin Albumin/Globulin Ratio Ur Random Creatinine 26 Ur Random Sodium 93 Blood Type O POSITIVE Antibody Screen Negative Crossmatch See Detail BBK History Checked Patient has bt 09/22/18 09/22/18 06:50 06:50 WBC 13.1 H D RBC 3.26 L Hgb 9.3 L Hct 28.9 L MCV 88.7 MCH 28.5 MCHC 32.2 RDW 18.8 H Plt Count 155 MPV 10.5 Neut % (Auto) 96.1 H Lymph % (Auto) 1.8 L [place] % (Auto) 2.0 Eos % (Auto) 0.0 L Baso % (Auto) 0.1 Lymph # (Auto) 0.2 L [place] # (Auto) 0.3 Eos # (Auto) 0.0 Baso # (Auto) 0.01 Absolute Neuts (auto) 12.55 H Neutrophils % (Manual) 97 H Band Neutrophils % 1 Lymphocytes % (Manual) 1 L Monocytes % (Manual) 1 Platelet Evaluation Normal pCO2 pO2 HCO3 ABG pH ABG Total CO2 ABG O2 Saturation ABG O2 Content ABG Base Excess ABG Hemoglobin ABG Carboxyhemoglobin POC ABG HHb (Measured) ABG Methemoglobin ABG O2 Capacity Hgb O2 Saturation FiO2 Sodium 139 Potassium 4.0 Chloride 105 Carbon Dioxide 27 Anion Gap 12 BUN 31 H Creatinine 2.9 H Est GFR ( Amer) 19 Est GFR (Non-Af Amer) 16 Random Glucose 80 Calcium 8.9 Total Bilirubin 0.8 AST 50 H ALT 30 Alkaline Phosphatase 89 Total Protein 4.9 L Albumin 2.4 L Globulin 2.4 Albumin/Globulin Ratio 1.0 L Ur Random Creatinine Ur Random Sodium Blood Type Antibody Screen Crossmatch BBK History Checked Radiology Impressions: Radiology Impressions Chest X-Ray 09/22/18 06:00 IMPRESSION: No change in bilateral interstitial infiltrates Critical Care Progress Note - Nutrition Nutrition: Nutrition Category Date Time Status Heart Healthy Diet [DIET] Diets 09/13/18 Dinner Active Assessment/Plan - Assessment and Plan (Free Text) Plan: Patient seen and examined on rounds, with resident, agree with note with following additions/exceptions: Patient is 78yo female with PMhx of end stage COPD, CHF, severe pulm HTN, Breast Ca on chemo, admitted with multi organ failure. Currently awake, on BIPAP, afebrile, HD stable Renal, Cardio, Pulm following Worsening renal function, HD catheter placed L femoral site, by the MICU team Tolerated HD x 2, no plans for HD today as per renal Palliative care following Patient with intermittent increased work of breathing today, CXR unchanged, ABG acceptable, will monitor closely, low threshold for intubation Multi Organ failure Renal failure CAD/CABG CHF Pulm HTN Resp failure AMS Breast Ca Recommend: - cont with BIPAP as tolerated, duonebs PRN, monitor resp status closely/Low threshold for intubation - Abx, broad spectrum Vanco, Merrem - follow up cultures - HD as per renal - follow up cardio, pulm - monitor LFTs - Solumedrol 40mg IV BID - FS control - GI ppx - DVT ppx, Lovenox - Monitor in CCU Overall prognosis extremely poor FULL CODE
--- NOTE | 2018-09-22 13:05 | PN ---
DATE: 09/22/2018 SUBJECTIVE: The patient appears comfortable this morning. She is mildly short of breath, but in no acute distress. She is much more awake and alert. PHYSICAL EXAMINATION: VITAL SIGNS: Temperature 98.7, pulse 94, respiratory rate 20/22, blood pressure 133/70. Oxygen saturation on BiPAP is 96%. HEENT: Normocephalic, atraumatic. NECK: No JVD. CARDIOVASCULAR: Systolic ejection murmur at the lower left sternal border. No S3 gallop. LUNGS: Decreased breath sounds at the bases. Less rhonchi. No wheezing. EXTREMITIES: Mild edema. No cyanosis. No clubbing. Calves are nontender to palpation. GI: Abdomen is soft, nontender and nondistended. Bowel sounds are positive. SKIN: Multiple ecchymotic areas - arms. Multiple sacral decubiti. The right foot remains wrapped. NEUROLOGIC: Exam limited at the present time. PERTINENT LABORATORY DATA: Chest x-ray was done this morning and reviewed. The chest x-ray continues to improve-- with decreased pulmonary vascular congestion. The right upper lobe also continues to resolve. Arterial blood gas was also done on BiPAP. Results are: pH 7.49, pCO2 of 35, pO2 of 74. IMPRESSION: 1. Advanced chronic obstructive pulmonary disease. 2. Congestive heart failure. 3. Possible pneumonia - right upper lobe. 4. Pulmonary hypertension. 5. Worsening sacral decubitus. 6. Breast cancer. 7. Peripheral vascular disease. 8. Failure to thrive. 9. Renal insufficiency. PLAN: The patient appears comfortable this morning. She is mildly short of breath, but in no acute distress. She is much more awake and alert. I did discuss the case with the night nurse and family (at bedside) at length. I did review the chest x-ray as above. The chest x-ray continues to slowly improve - with decreased pulmonary vascular congestion, and resolving right upper lobe infiltrate. I have also reviewed the arterial blood gas. The arterial blood gas is also improved--- with a decrease in the alveolar-arterial gradient. We will continue the patient on BiPAP at night and high-flow oxygen delivery during the day. On physical exam, there is certainly less bronchospasm noted. I will continue with the current nebulizer treatments and low dose intravenous steroids for now. Inputs by Renal and Cardiology are also noted. The patient is status post hemodialysis. The patient remains critically ill, but is certainly improved from a few days ago. Her overall status/prognosis remains very guarded/poor. I will discuss the above with the entire ICU team in the next few moments. I will discuss the above with the attending physician later this morning. Anthony Hameed MD MTDRubin
--- NOTE | 2018-09-22 14:09 | CP.PCM.PN ---
Subjective - Date & Time of Evaluation Date of Evaluation: 09/22/18 Time of Evaluation: 10:30 - Subjective Subjective: Still trying to catch her breath but feels a little better, no fevers. Still feels weak. Objective - Vital Signs/Intake and Output Vital Signs (last 24 hours): Temp Pulse Resp BP Pulse Ox 98.2 F 80 24 115/53 L 96 09/21/18 04:00 09/21/18 16:00 09/21/18 10:19 09/21/18 16:00 09/21/18 07:50 - Medications Medications: Current Medications Albuterol/Ipratropium (Duoneb 3 Mg/0.5 Mg (3 Ml) Ud) 3 ml IH Q1H PRN PRN Reason: Shortness of Breath Last Admin: 09/18/18 08:32 Dose: 3 ml Albuterol/Ipratropium (Duoneb 3 Mg/0.5 Mg (3 Ml) Ud) 3 ml IH [id number] [facility] Last Admin: 09/21/18 13:20 Dose: 3 ml Arformoterol Tartrate (Brovana) 15 mcg IH [id number] [facility] Last Admin: 09/21/18 07:40 Dose: 15 mcg Aspirin (Ecotrin) 81 mg PO DAILY [facility] Last Admin: 09/21/18 15:59 Dose: Not Given Atorvastatin Calcium (Lipitor) 20 mg PO DIN [facility] Last Admin: 09/20/18 17:39 Dose: Not Given Budesonide (Pulmicort Respules) 0.5 mg IH [id number] [facility] Last Admin: 09/21/18 07:40 Dose: 0.5 mg Doxycycline Hyclate (Doryx) 100 mg PO Q12 [facility]; Protocol Last Admin: 09/21/18 15:59 Dose: Not Given Enoxaparin Sodium (Lovenox) 30 mg SC DAILY [facility]; Protocol Last Admin: 09/21/18 16:02 Dose: 30 mg Escitalopram Oxalate (Lexapro) 10 mg PO DAILY [facility] Last Admin: 09/21/18 16:00 Dose: Not Given Famotidine (Pepcid) 20 mg PO HS [facility] Last Admin: 09/20/18 22:17 Dose: Not Given Meropenem 250 mg/ Sodium (Chloride) 100 mls @ 100 mls/hr IVPB Q12H [facility]; Protocol Stop: 09/27/18 06:16 Last Admin: 09/21/18 06:17 Dose: 100 mls/hr Lidocaine HCl (Xylocaine 2%) 1 ea TOP DAILY [facility] Methylprednisolone (Solu-Medrol) 40 mg IVP DAILY [facility] Last Admin: 09/21/18 09:35 Dose: 40 mg Metoprolol Tartrate (Lopressor) 50 mg PO BID [facility] Last Admin: 09/21/18 16:00 Dose: Not Given Montelukast Sodium (Singulair) 10 mg PO [facility] Last Admin: 09/20/18 22:49 Dose: Not Given Mupirocin (Bactroban Ointment) 0 gm TOP DAILY [facility] Stop: 09/29/18 10:01 Last Admin: 09/20/18 09:33 Dose: 1 applic Oxycodone HCl (Oxycodone Immediate Release Tab) 10 mg PO Q6H PRN PRN Reason: Pain, moderate (4-7) Last Admin: 09/15/18 17:53 Dose: 10 mg Pantoprazole Sodium (Protonix Inj) 40 mg IVP DAILY [facility] Last Admin: 09/21/18 09:20 Dose: 40 mg Polyethylene Glycol (Miralax) 17 gm PO BID [facility] Last Admin: 09/21/18 16:01 Dose: Not Given Pregabalin (Lyrica) 50 mg PO [facility] Last Admin: 09/20/18 22:48 Dose: Not Given Sildenafil Citrate (Revatio) 20 mg PO BID [facility] Last Admin: 09/21/18 16:02 Dose: Not Given Silver Sulfadiazine (Silvadene 1% 25 Gm) 0 gm TP DAILY [facility] Last Admin: 09/20/18 18:43 Dose: 25 gm - Labs Labs: 09/21/18 06:50 09/21/18 06:50 - Constitutional Appears: Chronically Ill - Head Exam Head Exam: NORMAL INSPECTION - Respiratory Exam Respiratory Exam: Decreased Breath Sounds Additional comments: right anterior chest wall port in place - Cardiovascular Exam Cardiovascular Exam: +S1, +S2 - GI/Abdominal Exam GI & Abdominal Exam: Soft. absent: Tenderness Assessment and Plan - Assessment and Plan (Free Text) Plan: Assessment consider bilateral healthcare-associated pneumonia in this patient with worsening respiratory failure probably combination of vascular congestion from worsening renal failure now on hemodialysis S/P UTI with E. coli, uncomplicated. probably cystitis thoracic vertebral compression fractures S/P kyphoplasty COPD chronic renal failure pulmonary HTN PVD GERD Plan gave another dose of Vancomycin and continue Merrem and continue Doxycycline day 3; repeat blood cultures are negative; urine Legionella Ag is negative will continue to monitor clinically overall prognosis is poor
--- NOTE | 2018-09-22 14:57 | PN ---
DATE: 09/22/2018 SUBJECTIVE: The patient is seen lying in bed in the ICU. She is much more awake. Eyes are open, but she is not really following commands. She is nodding her head. She appears to be in moderate respiratory distress. She is on BiPAP. Her respiratory rate is close to 40. Daughter is at bedside. PHYSICAL EXAMINATION GENERAL: Elderly lady lying in bed in the ICU, on BiPAP. VITAL SIGNS: Blood pressure 119/70, heart rate 125, respiratory rate 28-38, temperature 98.2. HEENT: Normocephalic, atraumatic, positive pallor. NECK: Supple, no JVD. LUNGS: Bilateral rhonchi, expiratory wheeze, prolonged expiration. CARDIAC: S1 and S2, regular rate and rhythm. No murmur, no rub. ABDOMEN: Obese, distended, soft, bowel sounds present. EXTREMITIES: No lower extremity edema. INTAKE AND OUTPUT: 100/1000. LABORATORY DATA: WBC 13, hemoglobin 9, hematocrit 28.9, platelets 155. Sodium 139, potassium 4.0, chloride 105, CO2 of 27, BUN 31, creatinine 2.9, glucose 80, calcium 8.9, AST 50, ALT 30, albumin 2.4. Urine sodium 93, urine creatinine 26. Blood cultures, no growth. Chest x-ray, no change in bilateral interstitial infiltrate. CURRENT MEDICATIONS: Brovana, Bactroban, doxycycline 100 every 12 hours, DuoNeb, Ecotrin, Lexapro, Lipitor 20 mg, Lopressor 50 b.i.d., Lopressor 5 mg IV push every 6 hours, Lyrica, meropenem 250 mg every 12 hours, Pepcid, Protonix, Pulmicort , Singulair, Solu-Medrol 40 IV every 12 hours, Xylocaine. ASSESSMENT 1. Hypoxic respiratory failure. 2. Multiorgan failure. 3. Acute kidney injury, now oliguric. 4. Severe anemia. 5. Severe end-stage chronic obstructive pulmonary disease. 6. Severe pulmonary hypertension. 7. Stage IV metastatic breast cancer. 8. Sacral decubitus. PLAN 1. The patient received dialysis treatments yesterday and the day before. No indication for renal replacement therapy today. We will reassess for dialysis tomorrow. 2. Elevated WBC count,? secondary to steroids, secondary to multilobar pneumonia. 3. Continue antibiotics as per ID recommendations, dose for creatinine clearance less than 10 mL per minute. 4. Severe anemia. The patient received 1 unit of blood transfusion yesterday. 5. Continue respiratory treatments/IV steroids. 6. Continue to monitor in the ICU setting. 7. Case discussed with daughter at bedside, case discussed with ICU team, case discussed with journeyman electrician pv installer, case discussed with dialysis nursing staff. More than 35 minutes spent in the care of this critically ill patient. Prognosis is grim. Mayelin Paul MD
[2018-09-22] MEDS ORDERED: Digoxin 500 mcg/2ml (0.5 mg/2ml) Inj IVP ONE ×3 (15:49→22:00)
--- NOTE | 2018-09-22 17:56 | PN ---
DATE: 09/22/2018 SUBJECTIVE: The patient is 78 years old, seen and examined. Seems to be more alert. Currently on BiPAP. Family is giving sips of fluid intermittently. to hemodialysis for now. PHYSICAL EXAMINATION: VITAL SIGNS: She is afebrile, pulse 123, respiration 26, and blood pressure 119/70. LUNGS: Bilateral there is no expiratory rhonchi, soft crackle. HEART: S1 and S2 audible; tachycardiac. ABDOMEN: Soft and nontender. No rebound. No guarding. NEUROLOGIC: She is awake and alert; able to communicate. LABORATORY DATA: WBC 13.1, hemoglobin 9.3, hematocrit 28.9, and platelets 155. Chemistry; sodium 139, potassium 4, chloride 105, CO2 of 27, BUN 31, creatinine 2.9, and blood sugar of 80. Urine is negative. ASSESSMENT 1. Bilateral pneumonia. 2. Acute and chronic renal failure. 3. History of breast cancer. 4. Malnutrition. 5. Anemia, status post blood transfusion. PLAN: Currently the patient is on BiPAP. She is getting nebulizer treatment. Discussed with ICU team for possible PPN such as Rx alternative and benefit, so we will hold it for now. Once the patient's mental status and respiratory status improve, we will encourage p.o. intake. Currently she is on doxycycline. She is on aspirin and Lexapro. She is on Lovenox and she is getting meropenem. We will follow up the patient in a.m. Charla Inman MD
[2018-09-22 18:36] VITALS: PULSE 85
[2018-09-22] MEDS: Budesonide 0.5 mg/2 ml Inhal Susp UD IH SCH (20:45)
--- NOTE | 2018-09-22 21:24 | PN ---
DATE: 09/22/2018 The patient is a 78-year-old female. REASON FOR CONSULTATION AND FOLLOWUP: Cardiac evaluation, rule out CHF, shortness of breath, acute kidney injury, multiorgan dysfunction. SUBJECTIVE: The patient on high flow oxygen, noninvasive ventilator. Daughter and granddaughter are at the bedside. The patient is much awake and alert. OBJECTIVE: GENERAL: Not in apparent distress, much awake and alert. VITAL SIGNS: Temperature afebrile, heart rate 128, blood pressure 129/76. HEENT: PERRLA. Extraocular muscles intact. NECK: Supple. No carotid bruits or thyromegaly. CHEST: Clear to auscultation. HEART: S1 and S2, regular. ABDOMEN: Soft. EXTREMITIES: Clubbing and cyanosis negative. LABORATORY DATA: WBC 13.1, hemoglobin 9.7, hematocrit 28.9, platelet count 155. Chemistry; sodium 139, potassium 4, chloride 105.2, anion gap of 2, BUN 31, creatinine 2.9. IMPRESSION: A 78-year-old female with a past medical history significant for coronary artery disease, status post coronary artery bypass graft in 2012, history of breast cancer, admitted with multilobar pneumonia, shortness of breath, acute kidney injury, requiring dialysis. The patient was initially vd-lca-wsnbddbrbmi and ze-gvd-sjzewfzl but the family resented the ch-oor-ynzvsdyclbh. Now, the patient is in a full code. Recent echo showed ejection fraction preserved 55% to 60%, moderate aortic regurgitation, vomj-lp-[id number] tricuspid regurgitation, right ventricular systolic pressure 57 consistent with a bsir-eb-nvllbhay pulmonary hypertension. The patient has recently right heart catheterization done that revealed right heart pressure upper limit normal, increased pulmonary vascular resistance. The patient is being treated for pulmonary hypertension. RECOMMENDATIONS: Continue broad-spectrum antibiotic, continue dialysis, continue metoprolol 50 mg twice a day. Repeat EKG. We will give two doses of digoxin to control the heart rate. We will follow. Overall the patient's condition is critical. USP prognosis is guarded. We will put verapamil 2.5 mg every 6 hours p.r.n. for heart rate more that 120. Bibi Welsh MD
--- NOTE | 2018-09-22 23:20 | CARD ---
APPROVED REPORT Date of service: 09/22/2018 EKG Measurement Heart [id number] [id number] <Conclusion> Normal sinus rhythm Right bundle branch block Possible Lateral infarct, age undetermined T wave abnormalities Abnormal ECG
[2018-09-23] MEDS: Albuterol-Ipratrop 3 mg / 0.5 (3 ml) UD IH SCH ×5 (01:25→20:02)
[2018-09-23 07:26] LABS: ARTERIAL BLOOD GAS HCO3 22.9 mmol/L (21-28); ARTERIAL BLOOD GAS HEMOGLOBIN 9.7 g/dL (11.7-17.4); ARTERIAL BLOOD GAS O2 CAPACITY 13.4 mL/dl (16-24); ARTERIAL BLOOD GAS O2 CONTENT 13.2 ML/dl (15-23); ARTERIAL BLOOD GAS O2 SAT 98.4 % (95-98); ARTERIAL BLOOD GAS PCO2 30 mm/Hg (35-45); ARTERIAL BLOOD GAS PH 7.49 (7.35-7.45); ARTERIAL BLOOD GAS TCO2 23.8 mmol.L (22-28)
[2018-09-23] MEDS ORDERED: Pantoprazole 40 mg EC Tab PO SCH (07:30)
[2018-09-23] MEDS: Arformoterol 15 mcg/2 ml Inh Sol IH SCH ×2 (07:47→20:02)
[2018-09-23] MEDS: Budesonide 0.5 mg/2 ml Inhal Susp UD IH SCH ×2 (07:47→20:03)
[2018-09-23 07:57] LABS: BASO # 0.01 K/mm3 (0.0-2.0); BASO % 0.1 % (0.0-3.0); HEMOGLOBIN 9.6 g/dL (12.0-16.0); LYMPH # 0.3 (1.2-3.4); LYMPH % 1.6 % (22.0-35.0); MEAN CELL VOLUME 90.6 fl (80.0-105.0); MEAN PLATELET VOLUME 12.1 fl (7.0-11.0); MONO # 0.2 (0.1-0.6); MONO % 1.4 % (1.0-6.0); RBC 3.31 10^6/uL (3.5-6.1); RED CELL DISTRIBUTION WIDTH 18.9 % (11.5-14.5); WHITE BLOOD COUNT 15.4 10^3/uL (4.5-11.0)
[2018-09-23] MEDS: Mupirocin 2% Ointment 15 GM TUBE TOP SCH (08:00)
[2018-09-23] MEDS: Silver Sulfadiazine 1% Cream (25 gm) TP SCH (08:00)
[2018-09-23 08:19] LABS: ALBUMIN 2.5 g/dL (3.0-4.8); CALCIUM 9.2 mg/dL (8.4-10.5)
--- NOTE | 2018-09-23 09:11 | PN ---
DATE: 09/23/2018 PULMONARY PROGRESS NOTE SUBJECTIVE: The patient appears comfortable this morning. She is mildly short of breath, but in no acute distress. She is awake and alert. OBJECTIVE: VITAL SIGNS: Temperature is 97.3, pulse 89, respirations 22/24, blood pressure 144/87. Oxygen saturation on BIPAP is 100%. HEENT: Normocephalic, atraumatic. No JVD. CARDIOVASCULAR: Systolic ejection murmur at the lower left sternal border. No S3 gallop. LUNGS: Decreased breath sounds at the bases. Minimal bilateral rhonchi. No wheezing. EXTREMITIES: Mild edema. No cyanosis, no clubbing. Calves are nontender to palpation. GASTROINTESTINAL: Abdomen is soft, nontender and nondistended. Bowel sounds are positive. SKIN: Multiple ecchymotic areas - arms; multiple sacral decubiti. The right foot remains wrapped. NEUROLOGIC: Limited at the present time. PERTINENT LABORATORY DATA: Chest x-ray was done this morning and reviewed. Today's film reveals increased interstitial changes bilaterally - compared to yesterday's film - most likely representing pulmonary edema. There is an underlying right upper lobe infiltrate. There are no significant effusions. Official results are pending. Arterial blood gas - ordered - pending. IMPRESSION: 1. Advanced chronic obstructive pulmonary disease. 2. Congestive heart failure. 3. Possible pneumonia - right upper lobe. 4. Pulmonary hypertension. 5. Worsening sacral decubitus. 6. Breast cancer. 7. Peripheral vascular disease. 8. Failure to thrive. 9. Renal insufficiency. PLAN: The patient appears comfortable this morning. She is mildly short of breath, but in no acute distress. She is much more awake and alert this morning. I did discuss the case with the night nurse and family (at bedside) at length. I did review the chest x-ray as above. The chest x-ray shows an increase in pulmonary vascular congestion this morning. There is also an underlying right upper lobe infiltrate. Official results are pending. I will discuss the chest x-ray with cardiology and renal this morning. As above, arterial blood gas has been ordered - not done yet. I will check that when feasible. We will continue with the BIPAP at night and high-flow oxygen delivery during the day. On physical exam, there is no significant bronchospasm noted. In addition, the alveolar-arterial gradient is less. I will continue the current nebulizer treatments and low-dose IV steroids for now. The patient also remains on her Revatio - for the pulmonary hypertension. Inputs by cardiology and renal are also noted. The patient remains critically ill, but certainly is improved from a few days ago. Her future status/prognosis remains very guarded/poor. I will discuss the above the entire ICU team in the next few moments. I will discuss the above the attending physician later this morning. Anthony Hameed MD MTDD
--- NOTE | 2018-09-23 09:27 | RAD ---
Date of service: 09/23/2018 HISTORY: on Bipap COMPARISON: 09/22/2018. FINDINGS: Right MediPort terminates at the cavoatrial junction. LUNGS: The lungs are hyperinflated. There is redemonstration of chronic interstitial thickening in both lungs. There is superimposed patchy airspace disease in the mid lungs. There is bibasilar atelectasis/scarring. PLEURA: Suspect small effusions, larger on the left. No pneumothorax. CARDIOVASCULAR: Mild cardiomegaly. Status post CABG. There are aortic atherosclerotic calcifications present. OSSEOUS STRUCTURES: Within normal limits for the patient's age. VISUALIZED UPPER ABDOMEN: Normal. OTHER FINDINGS: None. IMPRESSION: Redemonstration of chronic interstitial lung disease. Superimposed patchy airspace disease in the mid lungs could represent superimposed pneumonia. Follow-up is advised. Suspect small effusions, larger on the left.
--- NOTE | 2018-09-23 10:24 | CP.PCM.PN ---
<José Crump - Last Filed: 09/23/18 10:21> Subjective - Date & Time of Evaluation Date of Evaluation: 09/23/18 Time of Evaluation: 10:22 - Subjective Subjective: Podiatry Progress Note: Dr. Denson 78 y/o F patient seen and evaluated at bedside with posterior right heel wound. Patient was awake at the time of the visit and breathing through Bi-Pap mask. Patient is still in the ICU. Patient's grand-daughter is at bedside. As per her chart there was no overnight nausea/vomiting/fever. There is no other pedal complaint at this time. Objective - Vital Signs/Intake and Output Vital Signs (last 24 hours): Temp Pulse Resp BP Pulse Ox 97.3 F L 101 H 26 H 134/70 94 L 09/23/18 04:00 09/23/18 09:00 09/23/18 09:00 09/23/18 08:54 09/23/18 09:00 - Medications Medications: Current Medications Albuterol/Ipratropium (Duoneb 3 Mg/0.5 Mg (3 Ml) Ud) 3 ml IH Q1H PRN PRN Reason: Shortness of Breath Last Admin: 09/18/18 08:32 Dose: 3 ml Albuterol/Ipratropium (Duoneb 3 Mg/0.5 Mg (3 Ml) Ud) 3 ml IH [id number] [facility] Last Admin: 09/23/18 07:47 Dose: 3 ml Arformoterol Tartrate (Brovana) 15 mcg IH [id number] [facility] Last Admin: 09/23/18 07:47 Dose: 15 mcg Aspirin (Ecotrin) 81 mg PO DAILY [facility] Last Admin: 09/22/18 12:48 Dose: 81 mg Atorvastatin Calcium (Lipitor) 20 mg PO DIN [facility] Last Admin: 09/22/18 17:00 Dose: Not Given Budesonide (Pulmicort Respules) 0.5 mg IH [id number] [facility] Last Admin: 09/23/18 07:47 Dose: 0.5 mg Doxycycline Hyclate (Doryx) 100 mg PO Q12 [facility]; Protocol Last Admin: 09/22/18 21:38 Dose: Not Given Enoxaparin Sodium (Lovenox) 30 mg SC DAILY [facility]; Protocol Last Admin: 09/22/18 10:09 Dose: 30 mg Escitalopram Oxalate (Lexapro) 10 mg PO DAILY [facility] Last Admin: 09/22/18 10:06 Dose: Not Given Famotidine (Pepcid) 20 mg PO HS [facility] Last Admin: 09/22/18 21:39 Dose: Not Given Meropenem 250 mg/ Sodium (Chloride) 100 mls @ 100 mls/hr IVPB Q12H [facility]; Protocol Stop: 09/27/18 06:16 Last Admin: 09/22/18 18:27 Dose: 100 mls/hr Lidocaine HCl (Xylocaine 2%) 1 ea TOP DAILY [facility] Last Admin: 09/22/18 10:10 Dose: 1 applic Methylprednisolone (Solu-Medrol) 40 mg IVP Q12 [facility] Last Admin: 09/22/18 21:50 Dose: 40 mg Metoprolol Tartrate (Lopressor) 25 mg PO BID [facility] Montelukast Sodium (Singulair) 10 mg PO HS [facility] Last Admin: 09/22/18 21:40 Dose: Not Given Mupirocin (Bactroban Ointment) 0 gm TOP DAILY [facility] Stop: 09/29/18 10:01 Last Admin: 09/22/18 10:06 Dose: 1 applic Pantoprazole Sodium (Protonix Inj) 40 mg IVP DAILY [facility] Polyethylene Glycol (Miralax) 17 gm PO BID [facility] Last Admin: 09/22/18 18:27 Dose: Not Given Pregabalin (Lyrica) 50 mg PO HS [facility] Last Admin: 09/22/18 21:39 Dose: Not Given Sildenafil Citrate (Revatio) 20 mg PO BID [facility] Last Admin: 09/22/18 18:27 Dose: Not Given Silver Sulfadiazine (Silvadene 1% 25 Gm) 0 gm TP DAILY [facility] Last Admin: 09/22/18 10:11 Dose: 25 gm Verapamil HCl (Verapamil Inj) 2.5 mg IVP Q6H PRN PRN Reason: For heart rate >120 - Labs Labs: 09/23/18 06:00 09/23/18 06:00 - Constitutional Appears: Well, Non-toxic, No Acute Distress - Head Exam Head Exam: ATRAUMATIC, NORMOCEPHALIC - Extremities Exam Additional comments: RLE focused exam: Vasc: DP/PT pulses fully palpable 2/4 b/l. Skin temperature gradient warm to warm from proximal to distal. Cap refill < 3 seconds to all digits b/l. No edema noted b/l Neuro: Gross and protective sensation grossly intact b/l. Derm: Posterior right heel ulceration measuring 2.1 cm X 1.5 cm with 10% fibrotic and 90% granular base, superficial, negative probe to bone, mild isabel- wound erythema, positive mild serous drainage, Slight maceration. No other open lesions, wounds, xerosis, abnormal pigmentation or abnormal growths noted b/l. Erythema noted over her right HAV medial eminence. MSK: B/l HAV deformities noted. No other gross deformities noted. ROM WNL to all major joints b/l. MMT 5/5 in all major muscle groups b/l. - Neurological Exam Neurological Exam: Alert, Awake, Oriented x3 - Psychiatric Exam Psychiatric exam: Normal Affect, Normal Mood Assessment and Plan - Assessment and Plan (Free Text) Assessment: 78 y/o F patient with posterior right heel decubitous ulceration. Plan: Patient seen and evaluated with Dr. Denson Discussed with attending Dr. Denson Charts, labs and vitals reviewed; Afebrile,WBCs 15.4 Wound Culture: Coag neg staph Right Heel X-ray: no signs of OM R MRI: bone marrow edema in calcaneus without evidence of cortical destruction or erosion likely represent bone marrow reaction, possibility of OM less likely Patient to wear Multipodus boots at all times while in bed ID consulted; Reccs appreciated. Continue IV abx as per ID Wound cleansed with saline then dressed with bactroban and optifoam. Podiatry will continue to follow up patient while in house <Angel Denson - Last Filed: 09/26/18 13:13> Objective - Vital Signs/Intake and Output Vital Signs (last 24 hours): Temp Pulse Resp BP Pulse Ox 97.2 F L 77 20 100/52 L 91 L 09/26/18 04:30 09/26/18 12:44 09/26/18 12:44 09/26/18 12:44 09/26/18 12:44 Intake and Output: 09/26/18 09/26/18 06:59 18:59 Intake Total 160 Output Total 75 Balance 85 - Medications Medications: Current Medications Albuterol/Ipratropium (Duoneb 3 Mg/0.5 Mg (3 Ml) Ud) 3 ml IH Q1H PRN PRN Reason: Shortness of Breath Last Admin: 09/26/18 04:49 Dose: 3 ml Albuterol/Ipratropium (Duoneb 3 Mg/0.5 Mg (3 Ml) Ud) 3 ml IH [id number] [facility] Last Admin: 09/26/18 13:06 Dose: 3 ml Amino Acid Protein (Prostat 15 G Packet) 15 gm GT BID [facility] Last Admin: 09/25/18 17:53 Dose: Not Given Arformoterol Tartrate (Brovana) 15 mcg IH [id number] [facility] Last Admin: 09/26/18 07:09 Dose: 15 mcg Aspirin (Ecotrin) 81 mg PO DAILY [facility] Last Admin: 09/26/18 10:46 Dose: 81 mg Atorvastatin Calcium (Lipitor) 20 mg PO DIN [facility] Last Admin: 09/25/18 17:52 Dose: 20 mg Budesonide (Pulmicort Respules) 0.5 mg IH [id number] [facility] Last Admin: 09/26/18 07:10 Dose: 0.5 mg Diphenhydramine HCl (Benadryl) 25 mg IVP HS PRN PRN Reason: Insomnia Last Admin: 09/23/18 20:11 Dose: 25 mg Doxycycline Hyclate (Doryx) 100 mg PO Q12 [facility]; Protocol Last Admin: 09/26/18 10:45 Dose: 100 mg Escitalopram Oxalate (Lexapro) 10 mg PO DAILY [facility] Last Admin: 09/26/18 10:44 Dose: 10 mg Famotidine (Pepcid) 20 mg PO HS [facility] Last Admin: 09/25/18 21:41 Dose: 20 mg Heparin Sodium (Porcine) (Heparin) 5,000 units SC Q12 [facility]; Protocol Last Admin: 09/25/18 22:14 Dose: 5,000 units Meropenem 250 mg/ Sodium (Chloride) 100 mls @ 100 mls/hr IVPB Q12H [facility]; Protocol Stop: 09/27/18 06:16 Last Admin: 09/26/18 05:19 Dose: 100 mls/hr Lidocaine HCl (Xylocaine 2%) 1 ea TOP DAILY [facility] Last Admin: 09/25/18 17:59 Dose: 1 applic Methylprednisolone (Solu-Medrol) 30 mg IVP Q12 [facility] Metoprolol Tartrate (Lopressor) 25 mg PO BID [facility] Last Admin: 09/26/18 10:45 Dose: 25 mg Montelukast Sodium (Singulair) 10 mg PO HS [facility] Last Admin: 09/25/18 22:13 Dose: 10 mg Mupirocin (Bactroban Ointment) 0 gm TOP DAILY [facility] Stop: 09/29/18 10:01 Last Admin: 09/25/18 08:00 Dose: 1 applic Ondansetron HCl (Zofran Inj) 4 mg IVP Q6H PRN PRN Reason: Nausea/Vomiting Last Admin: 09/24/18 11:39 Dose: 4 mg Pantoprazole Sodium (Protonix Inj) 40 mg IVP DAILY [facility] Last Admin: 09/25/18 09:33 Dose: 40 mg Polyethylene Glycol (Miralax) 17 gm PO BID [facility] Last Admin: 09/25/18 18:02 Dose: Not Given Pregabalin (Lyrica) 50 mg PO HS [facility] Last Admin: 09/25/18 22:13 Dose: 50 mg Sildenafil Citrate (Revatio) 20 mg PO BID [facility] Last Admin: 09/25/18 17:52 Dose: 20 mg Silver Sulfadiazine (Silvadene 1% 25 Gm) 0 gm TP DAILY [facility] Last Admin: 09/25/18 10:00 Dose: Not Given Verapamil HCl (Verapamil Inj) 2.5 mg IVP Q6H PRN PRN Reason: For heart rate >120 - Labs Labs: 09/26/18 05:30 09/26/18 05:30 Attending/Attestation - Attestation I have personally seen and examined this patient.: Yes I have fully participated in the care of the patient.: Yes I have reviewed all pertinent clinical information, including history, physical exam and plan: Yes
--- NOTE | 2018-09-23 10:46 | CARD ---
APPROVED REPORT Date of service: 09/23/2018 EKG Measurement Heart [id number] <Conclusion> Normal sinus rhythm Incomplete right bundle branch block Left anterior fascicular block T wave abnormality, consider anterolateral ischemia Prolonged QT Abnormal ECG
[2018-09-23] MEDS: Sildenafil 20 MG TAB PO SCH ×2 (11:00→18:12)
[2018-09-23] MEDS: MethylPREDNISolone 40 mg Vial IVP SCH ×2 (11:00→21:06)
[2018-09-23] MEDS: Enoxaparin 30 mg Syringe SC SCH (11:00)
[2018-09-23] MEDS: Lidocaine 2% Jelly (30 ml) TOP SCH (11:08)
[2018-09-23] MEDS: POLYETHYLENE GLYCOL 3350 17 GM/Dose PACKET PO SCH ×2 (11:33→18:10)
[2018-09-23] MEDS ORDERED: DiphenhydrAMINE 50 mg/ml Inj IVP PRN (12:15)
--- NOTE | 2018-09-23 13:58 | PN ---
DATE: 09/23/2018 REASON FOR CONSULTATION AND FOLLOWUP: Cardiac evaluation, respiratory insufficiency, multiorgan dysfunction, acute kidney injury started on dialysis, on high flow noninvasive ventilator. SUBJECTIVE: The patient is much awake and alert than before, had dialysis a day before yesterday, granddaughter is at the bedside. OBJECTIVE: GENERAL: Not in apparent distress. Awake and alert. Yesterday had applesauce and started p.o. meds. VITAL SIGNS: Temperature afebrile, heart rate 101 and blood pressure 134/70. HEENT: PERRLA. Extraocular muscles intact. NECK: Supple. No carotid bruit. No thyromegaly. CHEST: Clear to auscultation. HEART: S1 and S2 regular. ABDOMEN: Soft. EXTREMITIES: Clubbing and cyanosis, negative. LABORATORY DATA: Telemetry shows sinus tachycardia. EKG done shows sinus tachycardia, right bundle-branch block. Blood workup, WBC 15.4, hemoglobin , hematocrit 30.0 and platelet count 158. Chemistry shows sodium 140, potassium 4.7, chloride 104, carbon dioxide 26, anion gap 14, BUN 50, creatinine 3.9, total protein 5.1, albumin 2.5, and albumin-globulin ratio 1. IMPRESSION: Protein calorie malnutrition, multilobar pneumonia, acute kidney injury, chronic renal insufficiency, history coronary artery disease, history of coronary artery bypass graft and sinus tachycardia, critically ill. The patient was Do Not Resuscitate/Do Not Intubate, reverted by the family, now the patient is full code. Recent echo shows ejection fraction 55%-60% moderate aortic regurgitation, mild to moderate tricuspid regurgitation, right ventricular systolic pressure 57 consistent with mild to moderate pulmonary hypertension. The patient had a recent catheterization right that revealed normal upper limit, normal right pressure with increased pulmonary vascular resistance. EKG shows sinus tachy cardia, multifactorial because of underlying sepsis, pneumonia, respiratory insufficiency as well as anemia, history of protein calorie malnutrition was not present admission, moderate protein calorie malnutrition. RECOMMENDATION: Continue broad-spectrum antibiotic, start p.o. We will resume back metoprolol 25 p.o. b.i.d. for tachycardia, dialysis as per renal, continue antibiotic. Overall the patient's condition is critical, long-term prognosis is guarded, we will follow with you and day-to-day depending on patient's condition. We will resume back p.o. meds was held because of inability to swallow and the patient was obtunded. Now, the patient was much awake and alert. We will start metoprolol 25 p.o. b.i.d. and if remains still tachycardic, we will increase. We will follow. Thank you Dr. Inman for providing us the opportunity in taking care of the patient, James Kennedy. Bibi Welsh MD
--- NOTE | 2018-09-23 15:23 | PN ---
DATE: 09/23/2018 SUBJECTIVE: The patient is awake with O2 via nasal cannula. The patient family is at bedside. She has BIPAP on overnight at this time the patient is less short of breath and no obvious pain. PHYSICAL EXAMINATION: VITAL SIGNS: Her temperature is 97.3, pulse is 98, respirations of 26 and BP is 134/70. SKIN: Warm and dry. HEENT: Head atraumatic, normocephalic. Eyes; reactive to light. Ears, nose, and throat seemed to be within normal limits. NECK: Supple. No JVD. No thyroid enlargement or lymph nodes. HEART: Has regular rate and rhythm. Normal S1, S2. LUNGS: Reveal bilateral rhonchi. ABDOMEN: Soft. Decreased bowel sounds. GENITALIA: Deferred. RECTAL: Deferred. MUSCULOSKELETAL: No joint deformities. EXTREMITIES: Reveal positive lower extremity edema. NEUROLOGIC: She is awake and alert. Moving all extremities. LABORATORY DATA: The patient's white count is 15.4, hemoglobin is 9.6 and hematocrit is 30.0 with platelets of 158,000. Arterial blood gas reveals a pH of 7.49, pCO2 of 30, pO2 of 89. Sodium is 140, potassium 4.7, chloride 104, CO2 of 26 with a BUN of 50, creatinine of 0.9 and a glucose of 136. Chest x-ray; the patient has chronic interstitial lung disease superimposed patchy airspace disease in the mid lung region. pneumonia. Suspect small pleural effusions greater on the left than the right. IMPRESSION: This patient has bilateral pneumonia with small pleural effusions, pulmonary fibrosis. The patient has history of breast cancer on chemo and radiation therapy as well as a history of chronic obstructive pulmonary disease, hypertension, renal failure requiring hemodialysis, cardiomyopathy, status post coronary artery bypass graft as well as coronary artery disease, anemia and pulmonary hypertension. PLAN: We will continue with aggressive pulmonary toilet, continue with Brovana, doxycycline, DuoNeb, Ecotrin, Lexapro, Lipitor, Lopressor, Lovenox, Lyrica, Miralax, Pepcid, Protonix, Pulmicort, Revatio, Singulair, Solu-Medrol, verapamil. We will continue to treat aggressively along with the other consultants and the primary care doctor. Devang Dominguez MD [facility] # [id number]
--- NOTE | 2018-09-23 15:41 | PN ---
DATE: 09/23/2018 SUBJECTIVE: The patient is in bed in no acute distress. Nontoxic. The patient is seen earlier in 129, bed 5. Appears to be comfortable, somewhat short of breath, overall improving. She did have BiPAP on. PHYSICAL EXAMINATION VITAL SIGNS: Temperature is 98, T-max yesterday was 100.7, respiratory rate of 26, heart rate of 102, blood pressure is 130/70. HEENT: Examination of HEENT is unremarkable. NECK: Supple. LUNGS: Have decreased breath sounds. HEART: Normal S1, S2. ABDOMEN: Soft, nontender. No rebound. No guarding. LABORATORY EXAMINATION: Reveals a white count of 15,400, hemoglobin of 9, platelets of 158. Chemistries reveal a BUN of 50, creatinine of 3.9. Urinalysis is noted. Serology is reviewed. Microbiology is noted. The blood cultures are negative. Urine cultures negative. The right leg culture has coag-negative staph. Review of orders reveals the patient to be on p.o. doxycycline and meropenem. Last procalcitonin 0.91 on 09/20. note from this morning is reviewed and appreciated. ASSESSMENT AND PLAN: This is a 78-year-old female who was seen earlier today in 129, bed 5 with bilateral healthcare-associated pneumonia in a patient with vascular congestive heart failure and renal failure on hemodialysis, and urinary tract infection with Escherichia coli and cystitis with thoracic vertebral compression fracture and status post kyphoplasty in the setting of end-stage chronic obstructive lung disease, chronic renal failure, pulmonary hypertension, on intermittent vancomycin, meropenem and doxycycline, day #4 with negative cultures. We will renew the doxycycline and we will also renew the meropenem. We will repeat a procalcitonin and we will order a nasal MRSA screen. We will follow with you. Tho Evans MD
--- NOTE | 2018-09-23 17:23 | PN ---
DATE: 09/23/2018 SUBJECTIVE: The patient is 78 years old, seen and examined. Looks much more awake and alert, on high flow oxygen. She is communicating. She did have some liquid diet this morning. PHYSICAL EXAMINATION: VITAL SIGNS: She is afebrile, pulse 93, respiration 26, and blood pressure 138/73. LUNGS: Bilateral soft crackle at bases. HEART: S1 and S2 audible. ABDOMEN: Soft and nontender. No rebound. No guarding. NEUROLOGIC: She is awake and alert, has generalized weakness. SKIN: She has right heel ulcer. She has sacral decubitus. LABORATORY DATA: WBC 15.4, hemoglobin 9.6, hematocrit 30, and platelets 158. Chemistry: Sodium 140, potassium 4.7, chloride 104, CO2 of 26, BUN 50, creatinine 3.9, and blood sugar of 136. Blood cultures and urine cultures are negative. ASSESSMENT: 1. Chronic obstructive pulmonary disease excerebration. 2. Status post fluid overload. 3. Acute on chronic renal failure. 4. History of carcinoma of the breast. 5. Anemia, status post multiple blood transfusions. 6. Right heel decubitus. 7. Sacral decubitus. 8. Status post kyphoplasty. PLAN: Currently, the patient is scheduled to have dialysis done today. She is on doxycycline to cover for pneumonia. She is on nebulizer treatment. She is on aspirin 81 daily. She is on Lexapro, statin, Lyrica, she is receiving meropenem and family was at bedside. She is currently on prednisone 40 every 12 hours, that can be tapered down within the next 24 to 48 hours depending on her physical exam in the a.m. Charla Inman MD
[2018-09-24 06:26] LABS: HEMOGLOBIN 8.6 g/dL (12.0-16.0); LYMPH # 0.2 (1.2-3.4); LYMPH % 1.4 % (22.0-35.0); MEAN CELL VOLUME 91.5 fl (80.0-105.0); MEAN CORPUSCULAR HEMOGLOBIN 29.3 pg (25.0-35.0); MEAN PLATELET VOLUME 12.8 fl (7.0-11.0); MONO # 0.4 (0.1-0.6); MONO % 3.4 % (1.0-6.0); RBC 2.94 10^6/uL (3.5-6.1); RED CELL DISTRIBUTION WIDTH 18.7 % (11.5-14.5); WHITE BLOOD COUNT 10.8 10^3/uL (4.5-11.0)
[2018-09-24 06:34] LABS: ALBUMIN 2.2 g/dL (3.0-4.8); CALCIUM 8.5 mg/dL (8.4-10.5)
[2018-09-24] MEDS: Arformoterol 15 mcg/2 ml Inh Sol IH SCH ×2 (07:40→19:52)
[2018-09-24] MEDS: Budesonide 0.5 mg/2 ml Inhal Susp UD IH SCH (07:40)
[2018-09-24] MEDS: Albuterol-Ipratrop 3 mg / 0.5 (3 ml) UD IH SCH ×3 (07:40→19:53)
--- NOTE | 2018-09-24 08:52 | PN ---
DATE: 09/24/2018 PULMONARY NOTE SUBJECTIVE: The patient appears comfortable this morning. She is mildly short of breath, but in no acute distress. PHYSICAL EXAMINATION: GENERAL: She is awake and alert. VITALS: Temperature is 97.6, pulse 87, respirations 20/22, blood pressure 129/68. Oxygen saturation on high-flow delivery is 98%. HEENT: Normocephalic, atraumatic. No JVD. CARDIOVASCULAR: Systolic ejection murmur at the lower left sternal border. No S3 gallop. LUNGS: Decreased breath sounds at the bases. Minimal/less rhonchi. No wheezing. EXTREMITIES: Mild edema. No cyanosis. No clubbing. Calves are nontender to palpation. GASTROINTESTINAL: Abdomen is soft, nontender, and nondistended. Bowel sounds are positive. SKIN: Multiple ecchymotic areas - arms. Multiple sacral decubitus. The right foot remains wrapped. NEUROLOGIC: Exam limited at the present time. PERTINENT LABORATORY DATA: Chest x-ray was done this morning and reviewed. It is an extremely poor rotated film. It will need to be repeated. IMPRESSION: 1. Advanced chronic obstructive pulmonary disease. 2. Congestive heart failure. 3. Possible pneumonia - right upper lobe. 4. Pulmonary hypertension. 5. Worsening sacral decubitus. 6. Breast cancer. 7. Peripheral vascular disease. 8. Failure to thrive. 9. Renal insufficiency. PLAN: The patient appears comfortable this morning. She is mildly short of breath, but in no acute distress. She is awake and alert. I did discuss the case with the night nurse and daughter (at bedside) at length. I did review the chest x-ray as above. Unfortunately, the chest x-ray is a very poor, very rotated film. A stat repeat chest x-ray has been ordered for better evaluation. On physical exam, there is certainly less bronchospasm noted. In addition, the alveolar-arterial gradient is also much less. I will continue the current nebulizer treatments and low dose intravenous steroids for now. The patient also remains on Revatio - for her pulmonary hypertension. Inputs by Cardiology and Renal are noted. The patient did get dialyzed yesterday. However, she became hypotensive, so only one liter was removed. The patient also remains on antibiotic therapy - as per Infectious Disease. There are no temperatures noted. The leukocytosis has now resolved. Clinical status of the patient is certainly improved - compared to earlier in the week. However, again, the future status/prognosis for this patient remains very guarded/poor. All are aware. I will discuss the above with the entire ICU team in the next few moments. I will also discuss the above with the attending physician later this morning. Anthony Hameed MD MTDD
[2018-09-24] MEDS: Mupirocin 2% Ointment 15 GM TUBE TOP SCH (10:00)
[2018-09-24] MEDS: Enoxaparin 30 mg Syringe SC SCH (11:00)
[2018-09-24] MEDS: POLYETHYLENE GLYCOL 3350 17 GM/Dose PACKET PO SCH ×2 (11:00→19:49)
[2018-09-24] MEDS: MethylPREDNISolone 40 mg Vial IVP SCH ×2 (11:00→21:57)
[2018-09-24] MEDS: Sildenafil 20 MG TAB PO SCH ×2 (11:00→18:52)
--- NOTE | 2018-09-24 11:06 | RAD ---
Date of service: 09/24/2018 HISTORY: f/u COMPARISON: 09/23/2018. FINDINGS: Right IJV line terminates at the cavoatrial junction. LUNGS: The lungs are well inflated. There is redemonstration of airspace disease in the mid lungs. There is severe pulmonary venous congestion superimposed on a background of interstitial lung disease. PLEURA: Worsening moderate left pleural effusion. No pneumothorax. CARDIOVASCULAR: Persistent moderate cardiomegaly. There are aortic atherosclerotic calcifications present. OSSEOUS STRUCTURES: Within normal limits for the patient's age. VISUALIZED UPPER ABDOMEN: Normal. OTHER FINDINGS: There are multiple surgical clips in the right axilla. IMPRESSION: Worsening congestive heart failure superimposed on a background of interstitial lung disease. Worsening moderate left pleural effusion. Persistent airspace disease in the mid lungs could represent pulmonary edema or superimposed pneumonia.
--- NOTE | 2018-09-24 11:07 | RAD ---
Date of service: 09/24/2018 HISTORY: pls. repeat stat. CXR this AM rotated. COMPARISON: 09/24/2018 at 4:49 a.m. FINDINGS: LUNGS: The lungs are well inflated. There is little interval change in airspace disease in both mid lungs, worse on the right. There is redemonstration of worsening pulmonary venous congestion. Stable background of interstitial lung disease. PLEURA: No change in moderate left pleural effusion. Small right pleural effusion. No pneumothorax. CARDIOVASCULAR: Persistent moderate cardiomegaly. Status post CABG. No aortic atherosclerotic calcifications present. OSSEOUS STRUCTURES: Multilevel kyphoplasty. VISUALIZED UPPER ABDOMEN: Normal. OTHER FINDINGS: None. IMPRESSION: Redemonstration of findings suggestive of congestive heart failure and redemonstration of moderate left pleural effusion. Airspace disease in the mid lungs, worse on the right could represent atelectasis, pneumonia or pulmonary edema. Follow-up is advised. Background of interstitial lung disease.
--- NOTE | 2018-09-24 12:35 | CP.PCM.PN ---
<AlisiaJosé caballero - Last Filed: 09/24/18 12:52> Subjective - Date & Time of Evaluation Date of Evaluation: 09/24/18 Time of Evaluation: 12:34 - Subjective Subjective: Podiatry Progress Note for Dr. Denson 78 y/o F patient seen and evaluated at bedside with posterior right heel wound. Patient still breathing through Bi-PAP mask. Patient is still in the ICU. As per her chart there was no overnight nausea/vomiting/fever. There are no other pedal complaints at this time. Objective - Vital Signs/Intake and Output Vital Signs (last 24 hours): Temp Pulse Resp BP Pulse Ox 97.9 F 89 25 H 104/56 L 96 09/24/18 08:00 09/24/18 12:20 09/24/18 12:20 09/24/18 12:19 09/24/18 12:20 Intake and Output: 09/24/18 09/24/18 06:59 18:59 Intake Total 1540 Output Total 60 Balance 1480 - Medications Medications: Current Medications Albuterol/Ipratropium (Duoneb 3 Mg/0.5 Mg (3 Ml) Ud) 3 ml IH Q1H PRN PRN Reason: Shortness of Breath Last Admin: 09/18/18 08:32 Dose: 3 ml Albuterol/Ipratropium (Duoneb 3 Mg/0.5 Mg (3 Ml) Ud) 3 ml IH [id number] [facility] Last Admin: 09/24/18 07:40 Dose: 3 ml Arformoterol Tartrate (Brovana) 15 mcg IH [id number] [facility] Last Admin: 09/24/18 07:40 Dose: 15 mcg Aspirin (Ecotrin) 81 mg PO DAILY [facility] Last Admin: 09/24/18 11:00 Dose: 81 mg Atorvastatin Calcium (Lipitor) 20 mg PO DIN [facility] Last Admin: 09/23/18 18:14 Dose: 20 mg Budesonide (Pulmicort Respules) 0.5 mg IH [id number] [facility] Last Admin: 09/24/18 07:40 Dose: 0.5 mg Diphenhydramine HCl (Benadryl) 25 mg IVP HS PRN PRN Reason: Insomnia Last Admin: 09/23/18 20:11 Dose: 25 mg Doxycycline Hyclate (Doryx) 100 mg PO Q12 [facility]; Protocol Last Admin: 09/24/18 10:59 Dose: 100 mg Enoxaparin Sodium (Lovenox) 30 mg SC DAILY [facility]; Protocol Last Admin: 09/24/18 11:00 Dose: 30 mg Escitalopram Oxalate (Lexapro) 10 mg PO DAILY [facility] Last Admin: 09/23/18 11:01 Dose: 10 mg Famotidine (Pepcid) 20 mg PO HS [facility] Last Admin: 09/23/18 21:07 Dose: 20 mg Meropenem 250 mg/ Sodium (Chloride) 100 mls @ 100 mls/hr IVPB Q12H [facility]; Protocol Stop: 09/27/18 06:16 Last Admin: 09/24/18 05:34 Dose: 100 mls/hr Lidocaine HCl (Xylocaine 2%) 1 ea TOP DAILY [facility] Last Admin: 09/23/18 11:08 Dose: 1 applic Methylprednisolone (Solu-Medrol) 40 mg IVP Q12 [facility] Last Admin: 09/24/18 11:00 Dose: 40 mg Metoprolol Tartrate (Lopressor) 25 mg PO BID [facility] Last Admin: 09/24/18 11:02 Dose: 25 mg Montelukast Sodium (Singulair) 10 mg PO HS [facility] Last Admin: 09/23/18 21:07 Dose: 10 mg Mupirocin (Bactroban Ointment) 0 gm TOP DAILY [facility] Stop: 09/29/18 10:01 Last Admin: 09/23/18 08:00 Dose: 1 applic Ondansetron HCl (Zofran Inj) 4 mg IVP Q6H PRN PRN Reason: Nausea/Vomiting Last Admin: 09/24/18 11:39 Dose: 4 mg Pantoprazole Sodium (Protonix Inj) 40 mg IVP DAILY [facility] Last Admin: 09/24/18 11:00 Dose: 40 mg Polyethylene Glycol (Miralax) 17 gm PO BID [facility] Last Admin: 09/23/18 18:10 Dose: 17 gm Pregabalin (Lyrica) 50 mg PO HS [facility] Last Admin: 09/23/18 21:08 Dose: 50 mg Sildenafil Citrate (Revatio) 20 mg PO BID [facility] Last Admin: 09/24/18 11:00 Dose: 20 mg Silver Sulfadiazine (Silvadene 1% 25 Gm) 0 gm TP DAILY [facility] Last Admin: 09/23/18 08:00 Dose: 1 gm Verapamil HCl (Verapamil Inj) 2.5 mg IVP Q6H PRN PRN Reason: For heart rate >120 - Labs Labs: 09/24/18 05:30 09/24/18 05:30 - Constitutional Appears: Well, Non-toxic, No Acute Distress - Head Exam Head Exam: ATRAUMATIC, NORMOCEPHALIC - Extremities Exam Additional comments: RLE focused exam: Vasc: DP/PT pulses fully palpable 2/4 b/l. Skin temperature gradient warm to warm from proximal to distal. Cap refill < 3 seconds to all digits b/l. No edema noted b/l Neuro: Gross and protective sensation grossly intact b/l. Derm: Posterior right heel ulceration measuring 2.1 cm X 1.5 cm with 10% fibrotic and 90% granular base, superficial, negative probe to bone, mild isabel- wound erythema, positive mild serous drainage, Slight maceration. No other open lesions, wounds, xerosis, abnormal pigmentation or abnormal growths noted b/l. Erythema noted over her right HAV medial eminence. MSK: B/l HAV deformities noted. No other gross deformities noted. ROM WNL to all major joints b/l. MMT 5/5 in all major muscle groups b/l. - Neurological Exam Neurological Exam: Alert, Awake, Oriented x3 - Psychiatric Exam Psychiatric exam: Normal Affect, Normal Mood Assessment and Plan - Assessment and Plan (Free Text) Assessment: 78 y/o F patient with posterior right heel decubitous ulceration. Plan: Patient seen and evaluated Discussed with attending Dr. Denson Charts, labs and vitals reviewed; Afebrile, WBCs 10.8 Wound Culture: Coag neg staph Right Heel X-ray: no signs of OM R MRI: bone marrow edema in calcaneus without evidence of cortical destruction or erosion likely represent bone marrow reaction, possibility of OM less likely Patient to wear Multipodus boots at all times while in bed ID consulted; Reccs appreciated. Continue IV abx as per ID Wound cleansed with saline then dressed with bactroban and DSD Podiatry will continue to follow up patient while in house <Angel Denson - Last Filed: 09/26/18 13:11> Objective - Vital Signs/Intake and Output Vital Signs (last 24 hours): Temp Pulse Resp BP Pulse Ox 97.2 F L 77 20 100/52 L 91 L 09/26/18 04:30 09/26/18 12:44 09/26/18 12:44 09/26/18 12:44 09/26/18 12:44 Intake and Output: 09/26/18 09/26/18 06:59 18:59 Intake Total 160 Output Total 75 Balance 85 - Medications Medications: Current Medications Albuterol/Ipratropium (Duoneb 3 Mg/0.5 Mg (3 Ml) Ud) 3 ml IH Q1H PRN PRN Reason: Shortness of Breath Last Admin: 09/26/18 04:49 Dose: 3 ml Albuterol/Ipratropium (Duoneb 3 Mg/0.5 Mg (3 Ml) Ud) 3 ml IH [id number] [facility] Last Admin: 09/26/18 13:06 Dose: 3 ml Amino Acid Protein (Prostat 15 G Packet) 15 gm GT BID [facility] Last Admin: 09/25/18 17:53 Dose: Not Given Arformoterol Tartrate (Brovana) 15 mcg IH [id number] [facility] Last Admin: 09/26/18 07:09 Dose: 15 mcg Aspirin (Ecotrin) 81 mg PO DAILY [facility] Last Admin: 09/26/18 10:46 Dose: 81 mg Atorvastatin Calcium (Lipitor) 20 mg PO DIN [facility] Last Admin: 09/25/18 17:52 Dose: 20 mg Budesonide (Pulmicort Respules) 0.5 mg IH [id number] [facility] Last Admin: 09/26/18 07:10 Dose: 0.5 mg Diphenhydramine HCl (Benadryl) 25 mg IVP HS PRN PRN Reason: Insomnia Last Admin: 09/23/18 20:11 Dose: 25 mg Doxycycline Hyclate (Doryx) 100 mg PO Q12 [facility]; Protocol Last Admin: 09/26/18 10:45 Dose: 100 mg Escitalopram Oxalate (Lexapro) 10 mg PO DAILY [facility] Last Admin: 09/26/18 10:44 Dose: 10 mg Famotidine (Pepcid) 20 mg PO HS [facility] Last Admin: 09/25/18 21:41 Dose: 20 mg Heparin Sodium (Porcine) (Heparin) 5,000 units SC Q12 [facility]; Protocol Last Admin: 09/25/18 22:14 Dose: 5,000 units Meropenem 250 mg/ Sodium (Chloride) 100 mls @ 100 mls/hr IVPB Q12H [facility]; Protocol Stop: 09/27/18 06:16 Last Admin: 09/26/18 05:19 Dose: 100 mls/hr Lidocaine HCl (Xylocaine 2%) 1 ea TOP DAILY [facility] Last Admin: 09/25/18 17:59 Dose: 1 applic Methylprednisolone (Solu-Medrol) 30 mg IVP Q12 [facility] Metoprolol Tartrate (Lopressor) 25 mg PO BID [facility] Last Admin: 09/26/18 10:45 Dose: 25 mg Montelukast Sodium (Singulair) 10 mg PO HS [facility] Last Admin: 09/25/18 22:13 Dose: 10 mg Mupirocin (Bactroban Ointment) 0 gm TOP DAILY [facility] Stop: 09/29/18 10:01 Last Admin: 09/25/18 08:00 Dose: 1 applic Ondansetron HCl (Zofran Inj) 4 mg IVP Q6H PRN PRN Reason: Nausea/Vomiting Last Admin: 09/24/18 11:39 Dose: 4 mg Pantoprazole Sodium (Protonix Inj) 40 mg IVP DAILY [facility] Last Admin: 09/25/18 09:33 Dose: 40 mg Polyethylene Glycol (Miralax) 17 gm PO BID [facility] Last Admin: 09/25/18 18:02 Dose: Not Given Pregabalin (Lyrica) 50 mg PO HS [facility] Last Admin: 09/25/18 22:13 Dose: 50 mg Sildenafil Citrate (Revatio) 20 mg PO BID [facility] Last Admin: 09/25/18 17:52 Dose: 20 mg Silver Sulfadiazine (Silvadene 1% 25 Gm) 0 gm TP DAILY [facility] Last Admin: 09/25/18 10:00 Dose: Not Given Verapamil HCl (Verapamil Inj) 2.5 mg IVP Q6H PRN PRN Reason: For heart rate >120 - Labs Labs: 09/26/18 05:30 09/26/18 05:30 Attending/Attestation - Attestation I have personally seen and examined this patient.: Yes I have fully participated in the care of the patient.: Yes I have reviewed all pertinent clinical information, including history, physical exam and plan: Yes
--- NOTE | 2018-09-24 15:23 | PN ---
DATE: 09/24/2018 REASON FOR CONSULTATION AND FOLLOWUP: Cardiac evaluation, respiratory insufficiency, multiorgan dysfunction, acute kidney injury started on dialysis, on high flow noninvasive ventilator. SUBJECTIVE: Respond to verbally stimuli. OBJECTIVE: VITAL SIGNS: Temperature afebrile, heart rate 87, and blood pressure 129/68. HEENT: PERRLA. Extraocular muscles intact. NECK: Supple. No carotid bruit. No thyromegaly. CHEST: Clear to auscultation. HEART: S1 and S2 regular. ABDOMEN: Soft. EXTREMITIES: Clubbing and cyanosis, negative. LABORATORY DATA: Blood workup as follows: WBC 10.8, hemoglobin 8.6, hematocrit 26.9 and platelet count 95. Chemistry shows sodium 138, potassium 4.5, chloride 104, carbon dioxide 26, anion gap of 35, BUN 44, creatinine 3.5, total protein 4.5, albumin 2, and albumin-globulin ratio 1. IMPRESSION: A 78-year-old female with past medical history significant for coronary artery bypass surgery, admitted with multilobar pneumonia, acute kidney injury, started on dialysis. The patient was initially Do Not Resuscitate/Do Not Intubate, now the family reverted, now the patient is in full code. Recent echo done shows ejection fraction 55%-56% moderate aortic regurgitation, mild to moderate tricuspid regurgitation, right ventricular systolic pressure of 57 consistent with mild to moderate pulmonary hypertension. The patient had a recent right heart catheterization that revealed normal upper limit, normal right heart pressure except pulmonary vascular resistance has increased consistent with pulmonary hypertension. Now the patient relatively, hemodynamically improved. Repeat chest x-ray today, possible for some residual pneumonia. History of advanced chronic obstructive pulmonary disease, history of coronary artery disease, history of coronary artery bypass graft, right lower lobe pneumonia, pulmonary hypertension, history of breast cancer in the past, failure to thrive, and protein calorie malnutrition. RECOMMENDATION: Continue dialysis, acute kidney injury as per Renal. Continue broad-spectrum antibiotic. Continue atorvastatin, continue beta-etta. Continue antibiotic. The patient's condition is critical, long-term prognosis is guarded. We will follow with you. Bibi Welsh MD
--- NOTE | 2018-09-24 17:41 | PN ---
DATE: 09/24/2018 SUBJECTIVE: The patient seen earlier today in Room 129, Bed 5. The patient's nurse caring for the patient last night states that the patient had an uneventful night. PHYSICAL EXAMINATION VITAL SIGNS: Temperature is 97, blood pressure is 104/50, respiratory rate is 21, and heart rate of 95. HEENT: Unremarkable. NECK: Supple CARDIOPULMONARY: Heart, normal S1, S2. LUNGS: Have decreased breath sounds. ABDOMEN: Soft. LABORATORY DATA: Reveals a white count of 10,800, hemoglobin of 8, BUN of 44, creatinine of 3.5. Urinalysis is noted and procalcitonin is 1.62. Urinalysis is noted. Serology is noted. Microbiology is noted. ASSESSMENT/PLAN: Is a 78-year-old female seen earlier today in Room 129, Bed 5 with healthcare-associated pneumonia and in vascular congestion heart failure and renal failure on hemodialysis, urinary tract infection with Escherichia Coli, cystitis and with a thoracic vertebral compression fracture, and chronic fructose lung disease. The patient had kyphoplasty in the past and pulmonary hypertension. Currently on intermittent vancomycin, meropenem, doxycycline day #3. Awaiting for nasal MRSA screen. Review of orders reveals doxycycline to be active, meropenem to be active. Dr. Hameed's progress note from today is reviewed. Chest x-ray from today is also reviewed. Dr. Hameed states the patient has advanced chronic obstructive lung disease with congestive heart failure, possible right upper lobe pneumonia in the face of pulmonary hypertension, breast cancer, peripheral vascular disease. Tho Evans MD
--- NOTE | 2018-09-24 17:59 | PN ---
DATE: 09/24/2018 SUBJECTIVE: The patient is awake with O2 via nasal cannula and family is at bedside. The patient has a p.r.n. BiPAP. No obvious complaints of pain at this time. PHYSICAL EXAMINATION: VITAL SIGNS: Temperature is 97.6, pulse is 95, respirations of 21 and BP is 104/51. SKIN: Warm and dry. HEAD: Atraumatic, normocephalic. EYES: Reactive to light. EARS, NOSE AND THROAT: Seemed to be within normal limits. NECK: Supple. No JVD. No thyroid enlargement. No lymph nodes. HEART: Regular rate and rhythm. Normal S1 and S2. LUNGS: Reveal bilateral rhonchi. ABDOMEN: Soft. Decreased bowel sounds. No organomegaly noted. GENITALIA AND RECTAL: Deferred. MUSCULOSKELETAL: No joint deformities. EXTREMITIES: Reveal positive lower extremity edema. NEUROLOGICAL: The patient is grossly intact. LABORATORY DATA: As far as the laboratories are concerned, the patient's white count is 10.8, hemoglobin is 8.6, hematocrit 26.9 with platelets of 95,000. Sodium is 138, potassium 4.5, chloride 104, CO2 of 26 with a BUN of 44, creatinine of 3.5 and a glucose of 87. The patient's chest x-ray reveals congestive heart failure and moderate left pleural effusions. Airspace disease s in mid lung; worse on the right; could represent atelectasis, pneumonia, or pulmonary edema. She has a. IMPRESSION: The patient has bilateral pneumonia with pleural effusion and pulmonary fibrosis. The patient also has a history of breast cancer on chemo and radiation as well as a history of chronic obstructive pulmonary disease, hypertension, renal failure on hemodialysis, cardiomyopathy, coronary artery disease as well as bypass and pulmonary hypertension. PLAN: We will continue to be aggressive with pulmonary toilet and give Brovana, doxycycline, DuoNeb, Ecotrin, Lexapro, Lipitor, Lopressor, Lovenox, Lyrica, MiraLax, Pepcid, Protonix, Pulmicort, Revatio, Singulair, Solu-Medrol, and verapamil. We will continue to treat aggressively along with the other consultants and the primary care doctor. Devang Dominguez MD
[2018-09-24] MEDS: Prostat 15 g packet GT SCH (18:00)
[2018-09-24] MEDS: Silver Sulfadiazine 1% Cream (25 gm) TP SCH (19:55)
[2018-09-24] MEDS: Lidocaine 2% Jelly (30 ml) TOP SCH (19:57)
--- NOTE | 2018-09-24 20:33 | PN ---
DATE: 09/24/2018 SUBJECTIVE: The patient is confused. She is able to answer simple questions with yes or no but is not able to elaborate. She does not recognize me although we have seen each other before. PHYSICAL EXAMINATION: VITAL SIGNS: Temperature is 97.9, pulse of 89, blood pressure is 104/56. respirations 25. GENERAL: The patient is lying in bed, flat, comfortable. HEENT: No oral lesion. Anicteric sclerae. Moist mucosa. NECK: No JVD, adenopathy, or thyromegaly. CARDIOVASCULAR: S1 and S2, regular. No murmurs, rubs, or gallops. LUNGS: She has a right chest port ABDOMEN: Bowel sounds are positive, soft, nontender and nondistended. EXTREMITIES: No cyanosis, clubbing or edema. LABS: White count of 10.8, hemoglobin 8.6, potassium is 4.5, creatinine is 3.5. ASSESSMENT: 1. Acute chronic obstructive pulmonary disease exacerbation. 2. Acute kidney injury. 3. Breast cancer. 4. Anemia, chronic 5. Right heel ulcer 2.1 x 1.5 cm. 6. Sacral pressure ulcer. PLAN: The patient is currently in the ICU. She is critically ill. She has a creatinine that remains elevated. She is on doxycycline for antibiotics. She is going to continue with aspirin daily. She is on Lexapro for her anxiety. She is on Lovenox for DVT prophylaxis. Because of the JAJA, I will discontinue the patient's Lovenox and place her on heparin instead. SHE DOES NOT HAVE A HEPARIN ALLERGY. [id number] heparin is metabolized through the kidney and she may develop bleeding issues. She is on Lipitor for dyslipidemia. She is receiving Protonix daily. The patient is on sildenafil for her pulmonary hypertension. She is on Solu-Medrol for inhaler. The patient's daughter who is at the bedside, I did speak with her and give her an update on the patient's diagnosis. She is going to get labs for tomorrow. Michael Mullen MD
--- NOTE | 2018-09-24 21:09 | PN ---
DATE: 09/24/2018 SUBJECTIVE: The patient is seen in the ICU. She is sitting propped up in bed. She is awake. Her eyes are open. She is trying to talk, but it is difficult to understand what she is saying. She is on high-flow oxygen. She was receiving nebulizer treatment. Her is at bedside. She has received stable dialysis. She is currently receiving meropenem 250 IV every 12 hours and doxycycline 100 every 12 hours. PHYSICAL EXAMINATION: GENERAL: Elderly lady sitting in bed in the ICU. VITAL SIGNS: Blood pressure 104/56, heart rate 91, respiratory rate 26, and temperature 97.9. HEENT: Normocephalic and atraumatic. Positive pallor. NECK: Supple. No JVD. LUNGS: Bilateral equal air entry, crackles over the left chest, more than the right. Bilateral rhonchi. CARDIAC: S1 and S2. Regular rate and rhythm. No murmur. No rub. ABDOMEN: Obese, distended, soft, and nontender. Bowel sounds present. EXTREMITIES: No clubbing. No cyanosis. INTAKE AND OUTPUT: 1540/60, one bowel movement as per nursing staff. LABORATORY DATA: WBC 10.8, hemoglobin 8.6, hematocrit 27, and platelets 95. Sodium 138, potassium 4.5, chloride 104, CO2 of 26, BUN 44, creatinine 3.5, glucose is 86, and calcium 8.5. AST 48, ALT 31, albumin 2.2, and corrected calcium is 10. Urine culture, no growth. Blood cultures no growth. Chest x-ray; left pleural effusion, CHF, and background interstitial lung disease. CURRENT MEDICATIONS: Benadryl, Brovana, doxycycline 100 every 12 hours, aspirin, Lexapro, Lipitor, Lopressor 25 b.i.d., Lyrica 50, meropenem 250 every 12 hours, Pepcid, Protonix, Revatio, Singulair, Solu-Medrol, verapamil p.r.n., Lovenox, and Zofran. ASSESSMENT: 1. Respiratory failure, multilobar pneumonia. 2. Acute kidney injury, now oligoanuric. 3. History of coronary artery disease, coronary artery bypass graft, and congestive heart failure. 4. Severe chronic obstructive pulmonary disease/pulmonary hypertension. 5. Stage IV breast cancer. 6. Anemia. 7. Severe hypoalbuminemia. PLAN: 1. We will arrange for dialysis again tomorrow, unfortunately was not able to ultrafiltrate on dialysis earlier because of low blood pressure. 2. Continue IV antibiotics as per ID recommendations for multilobar pneumonia. 3. Continue respiratory treatments. 4. Push p.o. intake. 5. Increase protein intake. 6. Long-term prognosis is extremely guarded. 7. Clinically somewhat improved. 8. Discussed with at bedside, discussed with ICU nursing staff, and discussed with dialysis staff. Mayelin Paul MD
[2018-09-25] MEDS ORDERED: Morphine 2 mg/ml ISec IVP ONE ×2 (03:10)
[2018-09-25] MEDS: Albuterol-Ipratrop 3 mg / 0.5 (3 ml) UD IH SCH ×2 (07:16→20:20)
[2018-09-25] MEDS: Arformoterol 15 mcg/2 ml Inh Sol IH SCH ×2 (07:16→20:20)
[2018-09-25] MEDS: Budesonide 0.5 mg/2 ml Inhal Susp UD IH SCH ×2 (07:16→20:20)
[2018-09-25] MEDS: Mupirocin 2% Ointment 15 GM TUBE TOP SCH (08:00)
[2018-09-25 08:19] LABS: BASO # 0.01 K/mm3 (0.0-2.0); BASO % 0.1 % (0.0-3.0); HEMOGLOBIN 8.6 g/dL (12.0-16.0); LYMPH # 0.5 (1.2-3.4); LYMPH % 4.4 % (22.0-35.0); MEAN CORPUSCULAR HEMOGLOBIN 28.7 pg (25.0-35.0); MEAN CORPUSCULAR HGB CONC 30.8 g/dl (31.0-37.0); MEAN PLATELET VOLUME 11.2 fl (7.0-11.0); MONO # 0.3 (0.1-0.6); MONO % 2.8 % (1.0-6.0); PLATELET COUNT 128 10^3/uL (120.0-450.0); RED CELL DISTRIBUTION WIDTH 18.3 % (11.5-14.5); WHITE BLOOD COUNT 11.9 10^3/uL (4.5-11.0)
--- NOTE | 2018-09-25 08:54 | PN ---
DATE: 09/25/2018 SUBJECTIVE: The patient appears comfortable this morning. She is not short of breath at rest. PHYSICAL EXAMINATION: GENERAL: She is awake and alert. VITAL SIGNS: Temperature is 98.4, pulse 83, respirations 19, blood pressure 124/62. Oxygen saturation on high-flow delivery - 96%. HEENT: Normocephalic, atraumatic. No JVD. CARDIOVASCULAR: Systolic ejection murmur at the lower left sternal border. No S3 gallop. LUNGS: Decreased breath sounds at the bases. Minimal/less rhonchi. No wheezing. EXTREMITIES: Less edema. No cyanosis, no clubbing. Calves are nontender to palpation. GASTROINTESTINAL: Abdomen is soft, nontender and nondistended. Bowel sounds are positive. SKIN: Multiple ecchymotic areas - arms. Multiple sacral decubitus. The right foot remains wrapped. NEUROLOGIC: Exam limited at the present time. PERTINENT LABORATORY DATA: Chest x-ray was done this morning and reviewed. There remains moderate pulmonary vascular congestion. However, it appears that the right upper lobe infiltrate has now resolved. Official results are pending. IMPRESSION: 1. Advanced chronic obstructive pulmonary disease. 2. Congestive heart failure. 3. Possible pneumonia - right upper lobe. 4. Pulmonary hypertension. 5. Worsening sacral decubitus. 6. Breast cancer. 7. Peripheral vascular disease. 8. Failure to thrive. 9. Renal insufficiency. PLAN: The patient appears comfortable this morning. She is not short of breath at rest. She is awake and alert. I did discuss the case with the night nurse and daughter (at bedside) at length. I did review the chest x-ray from this morning. Moderate pulmonary vascular congestion remains. However, as above, it does appear that the right upper lobe infiltrate has now resolved. I would continue with the current antibiotic therapy - as per Infectious Disease. The leukocytosis has resolved. In addition, the patient is for hemodialysis later this morning. On physical exam, there is certainly less bronchospasm noted. In addition, the alveolar-arterial gradient is also less. I will continue the current nebulizer treatments and low-dose intravenous steroids for now. The patient also remains on Revatio - for her pulmonary hypertension. Inputs by Cardiology and Renal are also noted. Clinical status of the patient is certainly improved - compared to last week. She does remain very guarded overall. I will discuss the above with the entire ICU team in the next few moments. I will also discuss the above with the attending physician later this morning. Anthony Hameed MD [facility]
[2018-09-25 09:17] LABS: ALBUMIN 2.3 g/dL (3.0-4.8); CALCIUM 8.8 mg/dL (8.4-10.5)
[2018-09-25] MEDS: MethylPREDNISolone 40 mg Vial IVP SCH ×2 (09:34→21:42)
[2018-09-25] MEDS: Sildenafil 20 MG TAB PO SCH ×2 (09:34→17:52)
[2018-09-25] MEDS: Silver Sulfadiazine 1% Cream (25 gm) TP SCH (10:00)
[2018-09-25] MEDS: POLYETHYLENE GLYCOL 3350 17 GM/Dose PACKET PO SCH ×2 (10:00→18:02)
[2018-09-25] MEDS: Prostat 15 g packet GT SCH ×2 (10:00→17:53)
[2018-09-25 10:21] LABS: LYMPHOCYTE 2 % (22.0-35.0); MONOCYTE 2 % (1.0-6.0); NEUTROPHIL 96 % (50.0-70.0)
[2018-09-25 10:37] LABS: LARGE PLATELETS PRESENT
--- NOTE | 2018-09-25 10:41 | RAD ---
Date of service: 09/25/2018 HISTORY: f/u COMPARISON: Comparison made with chest radiograph dated 09/24/2018. FINDINGS: No change right IJ MediPort tip in the SVC/RA junction LUNGS: Significant centrilobular/panlobular emphysematous changes are again seen. Additionally, there are diffuse bilateral interstitial infiltrates likely representing pulmonary venous congestion. Bilateral alveolar-type infiltrates with bilateral effusions right larger than left also suspected.. Upside down U shaped lucency within the left CP angle region which is of uncertain etiology well could represent confluence of shadow artifact. Possibility of a changes related to a hiatal hernia not excluded. Consider lateral view of the chest for further evaluation. PLEURA: No significant pleural effusion identified, no pneumothorax apparent. CARDIOVASCULAR: Mild moderate aortic atherosclerotic calcification present. Dense mitral valve calcification also unchanged Cardiomegaly. Sternotomy wires again noted. OSSEOUS STRUCTURES: Note also again made radiopaque densities within to thoracic segments consistent with kyphoplasty cement. No significant abnormalities. VISUALIZED UPPER ABDOMEN: Normal. OTHER FINDINGS: None. IMPRESSION: Significant centrilobular/panlobular emphysematous changes are again seen. Additionally, there are diffuse bilateral interstitial infiltrates likely representing pulmonary venous congestion. Bilateral alveolar-type infiltrates with bilateral effusions right larger than left also suspected.. Upside down U shaped lucency within the left CP angle region which is of uncertain etiology well could represent confluence of shadow artifact. Possibility of a changes related to a hiatal hernia not excluded. Consider lateral view of the chest for further evaluation.
[2018-09-25] MEDS ORDERED: Lidocaine PF 2% (5 ml) Inj (For Cardiac Arrhy) ONE ×2 (12:14→12:25)
--- NOTE | 2018-09-25 12:58 | CP.CCUPN ---
<Bernadine White - Last Filed: 09/25/18 18:10> CCU Subjective - Physician Review Subjective (Free Text): 09/25/18 12:54 Bernadine White, PGY-1 ICU Progress Note Pt was seen and examined this AM with ICU team. Pt is more responsive today, but is still only AOx1. ROS is limited due to pt only being AOx1. Pt is on high flow O2 and sating well. Pt will have dialysis later today, as pt is scheduled for permacath placement by IR team today. At this time the pt does not admit to any acute complaints. CCU Objective - Vital Signs / Intake & Output Vital Signs (Last 4 hours): Vital Signs Resp 09/25/18 10:32 17 Intake and Output (Last 8hrs): Intake & Output 09/24/18 09/25/18 09/25/18 22:59 06:59 14:59 Intake Total 200 Output Total 50 Balance 150 Intake: IV 100 Right Subclavian 100 Oral 100 Output: Urine 50 2-way Urethral 50 - Physical Exam Head: Positive for: Atraumatic, Normocephalic, Contusion (over the left eyebrow, no stepoff). Negative for: Tenderness (no tenderness to plapation over the contusion) Pupils: Positive for: PERRL Extroacular Muscles: Positive for: EOMI Conjunctiva: Positive for: Normal Mouth: Positive for: Moist Mucous Membranes Neck: Positive for: Normal Range of Motion Respiratory/Chest: Positive for: Clear to Auscultation, Good Air Exchange, Wheezes (end expiratory wheezes), Rhonchi (diffuse rhonchi ), Other (medaport to the right upper chest wall. ). Negative for: Respiratory Distress, Accessory Muscle Use Cardiovascular: Positive for: Regular Rate and Rhythm, Normal S1, S2. Negative for: Murmurs Abdomen: Positive for: Normal Bowel Sounds. Negative for: Tenderness, Distention, Peritoneal Signs Back: Positive for: Normal Inspection, Decubitus Ulcer (foul odor, left buttock open wound 5x6cm, w/surrounding erythema, not draining; right buttock 2.5x3 cm not open, erythematous; + increased warmth; no streaking from either wound) Upper Extremity: Positive for: Normal Inspection. Negative for: Cyanosis, Edema Lower Extremity: Positive for: Edema (2+ bilateral lower extremity pitting edema ) Neurological: Positive for: GCS=15, CN II-XII Intact, Speech Normal Skin: Positive for: Warm, Dry, Normal Color, Other (Patient has foul smelling wounds on buttocks. Left buttocks: stage 1, open wound. Right buttocks: skin break down 2 1/2 by 3 inches). Negative for: Rashes Psychiatric: Positive for: Alert (only oriented to person) - Medications Active Medications: Active Medications Generic Name Dose Route Start Last Admin Trade Name Freq PRN Reason Stop Dose Admin Albuterol/Ipratropium 3 ml 09/18/18 08:26 09/18/18 08:32 Duoneb 3 Mg/0.5 Mg (3 Ml) Ud IH 3 ml Q1H PRN Administration Shortness of Breath Albuterol/Ipratropium 3 ml 09/21/18 14:00 09/25/18 07:16 Duoneb 3 Mg/0.5 Mg (3 Ml) Ud IH 3 ml [id number] TORI Administration Amino Acid Protein 15 gm 09/24/18 18:00 09/24/18 18:00 Prostat 15 G Packet GT Not Given BID TORI Arformoterol Tartrate 15 mcg 09/13/18 20:00 09/25/18 07:16 Brovana IH 15 mcg [id number] TORI Administration Aspirin 81 mg 09/14/18 10:00 09/25/18 09:34 Ecotrin PO 81 mg DAILY TORI Administration Atorvastatin Calcium 20 mg 09/14/18 17:00 09/24/18 18:52 Lipitor PO 20 mg DIN TORI Administration Budesonide 0.5 mg 09/15/18 08:00 09/25/18 07:16 Pulmicort Respules IH 0.5 mg [id number] TORI Administration Diphenhydramine HCl 25 mg 09/23/18 12:15 09/23/18 20:11 Benadryl IVP 25 mg HS PRN Administration Insomnia Doxycycline Hyclate 100 mg 09/13/18 22:00 09/25/18 09:34 Doryx PO 100 mg Q12 TORI Administration Protocol Escitalopram Oxalate 10 mg 09/14/18 10:00 09/25/18 09:34 Lexapro PO 10 mg DAILY TORI Administration Famotidine 20 mg 09/20/18 07:54 09/24/18 22:25 Pepcid PO 20 mg HS TORI Administration Heparin Sodium (Porcine) 5,000 units 09/24/18 22:00 09/25/18 09:32 Heparin SC 5,000 units Q12 TORI Administration Protocol Meropenem 250 mg/ Sodium 100 mls @ 100 mls/hr 09/20/18 06:15 09/25/18 05:21 Chloride IVPB 09/27/18 06:16 100 mls/hr Q12H TORI Administration Protocol Lidocaine HCl 1 ea 09/20/18 10:40 09/24/18 19:57 Xylocaine 2% TOP Not Given DAILY TORI Methylprednisolone 40 mg 09/22/18 10:00 09/25/18 09:34 Solu-Medrol IVP 40 mg Q12 TORI Administration Metoprolol Tartrate 25 mg 09/23/18 10:15 09/24/18 18:52 Lopressor PO 25 mg BID TORI Administration Montelukast Sodium 10 mg 09/13/18 22:00 09/24/18 22:25 Singulair PO 10 mg HS TORI Administration Mupirocin 0 gm 09/20/18 10:00 09/24/18 10:00 Bactroban Ointment TOP 09/29/18 10:01 1 applic DAILY TORI Administration Ondansetron HCl 4 mg 09/24/18 11:15 09/24/18 11:39 Zofran Inj IVP 4 mg Q6H PRN Administration Nausea/Vomiting Pantoprazole Sodium 40 mg 09/23/18 10:00 09/25/18 09:33 Protonix Inj IVP 40 mg DAILY TORI Administration Polyethylene Glycol 17 gm 09/14/18 10:00 09/24/18 19:49 Miralax PO Not Given BID TORI Pregabalin 50 mg 09/13/18 22:00 09/24/18 22:24 Lyrica PO 50 mg HS TORI Administration Sildenafil Citrate 20 mg 09/13/18 19:30 09/25/18 09:34 Revatio PO 20 mg BID TORI Administration Silver Sulfadiazine 0 gm 09/14/18 10:00 09/24/18 19:55 Silvadene 1% 25 Gm TP 1 gm DAILY TORI Administration Verapamil HCl 2.5 mg 09/22/18 15:50 Verapamil Inj IVP Q6H PRN For heart rate >120 - Patient Studies Lab Studies: Microbiology Studies 09/20/18 07:00 Blood Culture - Final Blood-Venous NO GROWTH AFTER 5 DAYS Gram Stain - Final TEST NOT PERFORMED 09/20/18 06:40 Blood Culture - Final Blood-Venous NO GROWTH AFTER 5 DAYS Gram Stain - Final TEST NOT PERFORMED Lab Studies 09/25/18 09/25/18 Range/Units 07:30 07:30 WBC 11.9 H (4.5-11.0) 10^3/uL RBC 3.00 L (3.5-6.1) 10^6/uL Hgb 8.6 L (12.0-16.0) g/dL Hct 27.9 L (36.0-48.0) % MCV 93.0 (80.0-105.0) fl MCH 28.7 (25.0-35.0) pg MCHC 30.8 L (31.0-37.0) g/dl RDW 18.3 H (11.5-14.5) % Plt Count 128 (120.0-450.0) 10^3/uL MPV 11.2 H (7.0-11.0) fl Neut % (Auto) 92.7 H (50.0-68.0) % Lymph % (Auto) 4.4 L (22.0-35.0) % Burnett % (Auto) 2.8 (1.0-6.0) % Eos % (Auto) 0.0 L (1.5-5.0) % Baso % (Auto) 0.1 (0.0-3.0) % Lymph # (Auto) 0.5 L (1.2-3.4) Burnett # (Auto) 0.3 (0.1-0.6) Eos # (Auto) 0.0 (0.0-0.7) Baso # (Auto) 0.01 (0.0-2.0) K/mm3 Absolute Neuts (auto) 11.06 H (1.4-6.5) Neutrophils % (Manual) 96 H (50.0-70.0) % Lymphocytes % (Manual) 2 L (22.0-35.0) % Monocytes % (Manual) 2 (1.0-6.0) % Large Platelets Present Sodium 136 (132-148) mmol/L Potassium 5.1 H (3.6-5.0) mmol/L Chloride 102 (98-107) mmol/L Carbon Dioxide 26 (21-33) mmol/L Anion Gap 13 (10-20) BUN 63 H (7-21) mg/dL Creatinine 4.0 H (0.7-1.2) mg/dl Est GFR ( Amer) 13 Est GFR (Non-Af Amer) 11 Random Glucose 90 (70-110) mg/dL Calcium 8.8 (8.4-10.5) mg/dL Total Bilirubin 0.6 (0.2-1.3) mg/dL AST 47 H (14-36) U/L ALT 36 (7-56) U/L Alkaline Phosphatase 129 H (38-126) U/L Total Protein 4.6 L (5.8-8.3) g/dL Albumin 2.3 L (3.0-4.8) g/dL Globulin 2.3 gm/dL Albumin/Globulin Ratio 1.0 L (1.1-1.8) Laboratory Results - last 24 hr 09/25/18 09/25/18 07:30 07:30 WBC 11.9 H RBC 3.00 L Hgb 8.6 L Hct 27.9 L MCV 93.0 MCH 28.7 MCHC 30.8 L RDW 18.3 H Plt Count 128 MPV 11.2 H Neut % (Auto) 92.7 H Lymph % (Auto) 4.4 L Burnett % (Auto) 2.8 Eos % (Auto) 0.0 L Baso % (Auto) 0.1 Lymph # (Auto) 0.5 L Burnett # (Auto) 0.3 Eos # (Auto) 0.0 Baso # (Auto) 0.01 Absolute Neuts (auto) 11.06 H Neutrophils % (Manual) 96 H Lymphocytes % (Manual) 2 L Monocytes % (Manual) 2 Large Platelets Present Sodium 136 Potassium 5.1 H Chloride 102 Carbon Dioxide 26 Anion Gap 13 BUN 63 H Creatinine 4.0 H Est GFR ( Amer) 13 Est GFR (Non-Af Amer) 11 Random Glucose 90 Calcium 8.8 Total Bilirubin 0.6 AST 47 H ALT 36 Alkaline Phosphatase 129 H Total Protein 4.6 L Albumin 2.3 L Globulin 2.3 Albumin/Globulin Ratio 1.0 L Radiology Impressions: Radiology Impressions Chest X-Ray 09/25/18 06:00 IMPRESSION: Significant centrilobular/panlobular emphysematous changes are again seen. Additionally, there are diffuse bilateral interstitial infiltrates likely representing pulmonary venous congestion. Bilateral alveolar-type infiltrates with bilateral effusions right larger than left also suspected.. Upside down U shaped lucency within the left CP angle region which is of uncertain etiology well could represent confluence of shadow artifact. Possibility of a changes related to a hiatal hernia not excluded. Consider lateral view of the chest for further evaluation. Critical Care Progress Note - Nutrition Nutrition: Nutrition Category Date Time Status Liquid Diet [DIET] Diets 09/22/18 Lunch Ordered Assessment/Plan - Assessment and Plan (Free Text) Assessment: 78yo F with PMHx of Metastatic Breast CA, COPD, Pulm HTN, CKD, PVD, GERD, who is ICU was consulted for due to acute hypoxic resp failure and multi-organ failure. Pt continues to be on Bipap after weaning trial failed. Will be getting dialysis tomorrow. Plan: Neuro: - AOx1 - Will cont to monitor Pulm: Acute hypoxic, hypercapnic Resp Failure: - Pt is tolerating highflow O2 on 90%FiO2 and is sating well. - CXR: "Significant centrilobular/panlobular emphysematous changes are again seen. Additionally, there are diffuse bilateral interstitial infiltrates likely representing pulmonary venous congestion. Bilateral alveolar-type infiltrates with bilateral effusions right larger than left also suspected.. Upside down U shaped lucency within the left CP angle region which is of uncertain etiology well could represent confluence of shadow artifact. Possibility of a changes related to a hiatal hernia not excluded. Consider lateral view of the chest for further evaluation." - Abx per ID recs - Procal elevated - Cont duonebs, brovana, pulmicort as ordered - Solumedrol 40mg IV BID - cont Sildenafil - Attempt will be made after dialysis to wean pt off of High-flow O2 and onto NC - f/u ABG - Maintain O2 sat >88% Cardio: Hx of CAD s/p CABG - BP control - Cont Asa, Lipitor, lopressor - would DC Lasix - follow up cardio Endo - FS control Heme: - Hgb went down to 7.6 yesterday. Was transfused 1 unit PRBC - Pts hgb is now 9.3, and has responded appropriately to transfusion. GI - LTFs downtrending - Pepcid Nephro: ARF: - Tolerated HD sessions, will have another session later today - Pt will have permacath placed today by IR - Pt had femoral shiley placed - Nephro recs appreciated GI: Pepcid DVT: Lovenox Case seen and discussed with Dr. Abdulkadir White, PGY-1 <Bayron Panchal - Last Filed: 09/26/18 17:37> CCU Objective - Vital Signs / Intake & Output Vital Signs (Last 4 hours): Vital Signs Pulse Resp BP Pulse Ox 09/26/18 14:29 80 20 130/58 L 90 L 09/26/18 14:14 80 19 110/50 L 92 L 09/26/18 14:00 78 20 95 09/26/18 13:59 79 20 122/51 L 97 09/26/18 13:44 78 18 103/49 L 96 Intake and Output (Last 8hrs): Intake & Output 09/26/18 09/26/18 09/26/18 06:59 14:59 22:59 Intake Total 160 Output Total 75 Balance 85 Weight 149 lb 6 oz Intake: Oral 60 Other 100 Output: Urine 75 2-way Urethral 75 Other: # Bowel Movements 1 - Medications Active Medications: Active Medications Generic Name Dose Route Start Last Admin Trade Name Freq PRN Reason Stop Dose Admin Albuterol/Ipratropium 3 ml 09/18/18 08:26 09/26/18 04:49 Duoneb 3 Mg/0.5 Mg (3 Ml) Ud IH 3 ml Q1H PRN Administration Shortness of Breath Albuterol/Ipratropium 3 ml 09/21/18 14:00 09/26/18 13:06 Duoneb 3 Mg/0.5 Mg (3 Ml) Ud IH 3 ml [id number] TORI Administration Amino Acid Protein 15 gm 09/24/18 18:00 09/26/18 15:56 Prostat 15 G Packet GT Not Given BID TORI Arformoterol Tartrate 15 mcg 09/13/18 20:00 09/26/18 07:09 Brovana IH 15 mcg [id number] TORI Administration Aspirin 81 mg 09/14/18 10:00 09/26/18 10:46 Ecotrin PO 81 mg DAILY TORI Administration Atorvastatin Calcium 20 mg 09/14/18 17:00 09/25/18 17:52 Lipitor PO 20 mg DIN TORI Administration Budesonide 0.5 mg 09/15/18 08:00 09/26/18 07:10 Pulmicort Respules IH 0.5 mg [id number] TORI Administration Diphenhydramine HCl 25 mg 09/23/18 12:15 09/23/18 20:11 Benadryl IVP 25 mg HS PRN Administration Insomnia Doxycycline Hyclate 100 mg 09/13/18 22:00 09/26/18 10:45 Doryx PO 100 mg Q12 TORI Administration Protocol Escitalopram Oxalate 10 mg 09/14/18 10:00 09/26/18 10:44 Lexapro PO 10 mg DAILY TORI Administration Famotidine 20 mg 09/20/18 07:54 09/25/18 21:41 Pepcid PO 20 mg HS TORI Administration Heparin Sodium (Porcine) 5,000 units 09/24/18 22:00 09/26/18 11:00 Heparin SC 5,000 units Q12 TORI Administration Protocol Meropenem 250 mg/ Sodium 100 mls @ 100 mls/hr 09/20/18 06:15 09/26/18 05:19 Chloride IVPB 09/27/18 06:16 100 mls/hr Q12H TORI Administration Protocol Lidocaine HCl 1 ea 09/20/18 10:40 09/25/18 17:59 Xylocaine 2% TOP 1 applic DAILY TORI Administration Methylprednisolone 30 mg 09/26/18 10:00 09/26/18 12:00 Solu-Medrol IVP 30 mg Q12 TORI Administration Metoprolol Tartrate 25 mg 09/23/18 10:15 09/26/18 10:45 Lopressor PO 25 mg BID TORI Administration Montelukast Sodium 10 mg 09/13/18 22:00 09/25/18 22:13 Singulair PO 10 mg HS TORI Administration Mupirocin 0 gm 09/20/18 10:00 09/25/18 08:00 Bactroban Ointment TOP 09/29/18 10:01 1 applic DAILY TORI Administration Ondansetron HCl 4 mg 09/24/18 11:15 09/24/18 11:39 Zofran Inj IVP 4 mg Q6H PRN Administration Nausea/Vomiting Pantoprazole Sodium 40 mg 09/23/18 10:00 09/26/18 11:00 Protonix Inj IVP 40 mg DAILY TORI Administration Polyethylene Glycol 17 gm 09/14/18 10:00 09/25/18 18:02 Miralax PO Not Given BID TORI Pregabalin 50 mg 09/13/18 22:00 09/25/18 22:13 Lyrica PO 50 mg HS TORI Administration Sildenafil Citrate 20 mg 09/13/18 19:30 09/25/18 17:52 Revatio PO 20 mg BID TORI Administration Silver Sulfadiazine 0 gm 09/14/18 10:00 09/25/18 10:00 Silvadene 1% 25 Gm TP Not Given DAILY TORI Verapamil HCl 2.5 mg 09/22/18 15:50 Verapamil Inj IVP Q6H PRN For heart rate >120 - Patient Studies Lab Studies: Microbiology Studies 09/23/18 22:34 MRSA Culture (Admit) - Final Naris MRSA NOT DETECTED Lab Studies 09/26/18 09/26/18 09/26/18 Range/Units 07:30 05:30 05:30 WBC 15.2 H D (4.5-11.0) 10^3/uL RBC 3.05 L (3.5-6.1) 10^6/uL Hgb 8.8 L (12.0-16.0) g/dL Hct 28.3 L (36.0-48.0) % MCV 92.8 (80.0-105.0) fl MCH 28.9 (25.0-35.0) pg MCHC 31.1 (31.0-37.0) g/dl RDW 17.8 H (11.5-14.5) % Plt Count 90 L (120.0-450.0) 10^3/uL Neut % (Auto) 93.5 H (50.0-68.0) % Lymph % (Auto) 4.3 L (22.0-35.0) % Burnett % (Auto) 2.2 (1.0-6.0) % Eos % (Auto) 0.0 L (1.5-5.0) % Baso % (Auto) 0.0 (0.0-3.0) % Lymph # (Auto) 0.7 L (1.2-3.4) Burnett # (Auto) 0.3 (0.1-0.6) Eos # (Auto) 0.0 (0.0-0.7) Baso # (Auto) 0.00 (0.0-2.0) K/mm3 Absolute Neuts (auto) 14.17 H (1.4-6.5) Sodium 136 (132-148) mmol/L Potassium 3.6 (3.6-5.0) mmol/L Chloride 100 (98-107) mmol/L Carbon Dioxide 31 (21-33) mmol/L Anion Gap 8 L (10-20) BUN 27 H (7-21) mg/dL Creatinine 2.2 H (0.7-1.2) mg/dl Est GFR ( Amer) 26 Est GFR (Non-Af Amer) 22 Random Glucose 61 L (70-110) mg/dL Calcium 8.3 L (8.4-10.5) mg/dL Iron 31 L (45-180) ug/dL TIBC 151 L (265-497) ug/dL % Saturation 21 (20-55) % Ferritin 890.0 ng/mL Total Bilirubin 0.7 (0.2-1.3) mg/dL AST 59 H D (14-36) U/L ALT 43 (7-56) U/L Alkaline Phosphatase 150 H (38-126) U/L Total Protein 4.6 L (5.8-8.3) g/dL Albumin 2.3 L (3.0-4.8) g/dL Globulin 2.3 gm/dL Albumin/Globulin Ratio 1.0 L (1.1-1.8) Laboratory Results - last 24 hr 09/26/18 09/26/18 09/26/18 05:30 05:30 07:30 WBC 15.2 H D RBC 3.05 L Hgb 8.8 L Hct 28.3 L MCV 92.8 MCH 28.9 MCHC 31.1 RDW 17.8 H Plt Count 90 L Neut % (Auto) 93.5 H Lymph % (Auto) 4.3 L Burnett % (Auto) 2.2 Eos % (Auto) 0.0 L Baso % (Auto) 0.0 Lymph # (Auto) 0.7 L Burnett # (Auto) 0.3 Eos # (Auto) 0.0 Baso # (Auto) 0.00 Absolute Neuts (auto) 14.17 H Sodium 136 Potassium 3.6 Chloride 100 Carbon Dioxide 31 Anion Gap 8 L BUN 27 H Creatinine 2.2 H Est GFR ( Amer) 26 Est GFR (Non-Af Amer) 22 Random Glucose 61 L Calcium 8.3 L Iron 31 L TIBC 151 L % Saturation 21 Ferritin 890.0 Total Bilirubin 0.7 AST 59 H D ALT 43 Alkaline Phosphatase 150 H Total Protein 4.6 L Albumin 2.3 L Globulin 2.3 Albumin/Globulin Ratio 1.0 L Radiology Impressions: Radiology Impressions Interventional Vascular Procedure 09/25/18 10:58 IMPRESSION: 1. Ultrasound and fluoroscopically placed left IJ tunneled dialysis catheter. Chest X-Ray 09/26/18 06:00 IMPRESSION: No adverse findings common no pneumothorax following dialysis catheter. The remainder of the findings identified previously are unchanged. Critical Care Progress Note - Nutrition Nutrition: Nutrition Category Date Time Status Liquid Diet [DIET] Diets 09/22/18 Lunch Ordered Attending/Attestation - Attestation I have personally seen and examined this patient.: Yes I have fully participated in the care of the patient.: Yes I have reviewed all pertinent clinical information: Yes Notes (Text): 09/26/18 17:35 78 yo with hypoxemic respiratory failure due to likely combination of factors including diastolic CHF, pneumonia and pulmonary fibrosis. HD catheter was changed and patient undergone HD, will continue with conservative fluid management, steroids, nebs and abx. dvt/gi prophylaxis ccm time 40 min
--- NOTE | 2018-09-25 13:47 | CP.PCM.PN ---
Subjective - Date & Time of Evaluation Date of Evaluation: 09/25/18 Time of Evaluation: 13:44 - Subjective Subjective: Podiatry Progress Note for Dr. Morrison 78 y/o F patient seen and evaluated at bedside with posterior right heel wound. Patient breathing today looks better. Patient is still in the ICU. As per her chart there was no overnight nausea/vomiting/fever. There are no other pedal complaints at this time. Patient denies pain in her right heel. Objective - Vital Signs/Intake and Output Vital Signs (last 24 hours): Temp Pulse Resp BP Pulse Ox 98.4 F 83 17 132/71 92 L 09/25/18 04:00 09/25/18 11:00 09/25/18 11:00 09/25/18 10:33 09/25/18 11:00 Intake and Output: 09/25/18 09/25/18 06:59 18:59 Intake Total 200 Output Total 50 Balance 150 - Medications Medications: Current Medications Albuterol/Ipratropium (Duoneb 3 Mg/0.5 Mg (3 Ml) Ud) 3 ml IH Q1H PRN PRN Reason: Shortness of Breath Last Admin: 09/18/18 08:32 Dose: 3 ml Albuterol/Ipratropium (Duoneb 3 Mg/0.5 Mg (3 Ml) Ud) 3 ml IH [id number] [facility] Last Admin: 09/25/18 07:16 Dose: 3 ml Amino Acid Protein (Prostat 15 G Packet) 15 gm GT BID [facility] Last Admin: 09/24/18 18:00 Dose: Not Given Arformoterol Tartrate (Brovana) 15 mcg IH [id number] [facility] Last Admin: 09/25/18 07:16 Dose: 15 mcg Aspirin (Ecotrin) 81 mg PO DAILY [facility] Last Admin: 09/25/18 09:34 Dose: 81 mg Atorvastatin Calcium (Lipitor) 20 mg PO DIN [facility] Last Admin: 09/24/18 18:52 Dose: 20 mg Budesonide (Pulmicort Respules) 0.5 mg IH [id number] [facility] Last Admin: 09/25/18 07:16 Dose: 0.5 mg Diphenhydramine HCl (Benadryl) 25 mg IVP HS PRN PRN Reason: Insomnia Last Admin: 09/23/18 20:11 Dose: 25 mg Doxycycline Hyclate (Doryx) 100 mg PO Q12 [facility]; Protocol Last Admin: 09/25/18 09:34 Dose: 100 mg Escitalopram Oxalate (Lexapro) 10 mg PO DAILY [facility] Last Admin: 09/25/18 09:34 Dose: 10 mg Famotidine (Pepcid) 20 mg PO HS [facility] Last Admin: 09/24/18 22:25 Dose: 20 mg Heparin Sodium (Porcine) (Heparin) 5,000 units SC Q12 [facility]; Protocol Last Admin: 09/25/18 09:32 Dose: 5,000 units Meropenem 250 mg/ Sodium (Chloride) 100 mls @ 100 mls/hr IVPB Q12H [facility]; Protocol Stop: 09/27/18 06:16 Last Admin: 09/25/18 05:21 Dose: 100 mls/hr Lidocaine HCl (Xylocaine 2%) 1 ea TOP DAILY [facility] Last Admin: 09/24/18 19:57 Dose: Not Given Methylprednisolone (Solu-Medrol) 40 mg IVP Q12 [facility] Last Admin: 09/25/18 09:34 Dose: 40 mg Metoprolol Tartrate (Lopressor) 25 mg PO BID [facility] Last Admin: 09/24/18 18:52 Dose: 25 mg Montelukast Sodium (Singulair) 10 mg PO HS [facility] Last Admin: 09/24/18 22:25 Dose: 10 mg Mupirocin (Bactroban Ointment) 0 gm TOP DAILY [facility] Stop: 09/29/18 10:01 Last Admin: 09/24/18 10:00 Dose: 1 applic Ondansetron HCl (Zofran Inj) 4 mg IVP Q6H PRN PRN Reason: Nausea/Vomiting Last Admin: 09/24/18 11:39 Dose: 4 mg Pantoprazole Sodium (Protonix Inj) 40 mg IVP DAILY [facility] Last Admin: 09/25/18 09:33 Dose: 40 mg Polyethylene Glycol (Miralax) 17 gm PO BID [facility] Last Admin: 09/24/18 19:49 Dose: Not Given Pregabalin (Lyrica) 50 mg PO HS [facility] Last Admin: 09/24/18 22:24 Dose: 50 mg Sildenafil Citrate (Revatio) 20 mg PO BID [facility] Last Admin: 09/25/18 09:34 Dose: 20 mg Silver Sulfadiazine (Silvadene 1% 25 Gm) 0 gm TP DAILY [facility] Last Admin: 09/24/18 19:55 Dose: 1 gm Verapamil HCl (Verapamil Inj) 2.5 mg IVP Q6H PRN PRN Reason: For heart rate >120 - Labs Labs: 09/25/18 07:30 09/25/18 07:30 - Constitutional Appears: Non-toxic, No Acute Distress - Head Exam Head Exam: ATRAUMATIC - Extremities Exam Additional comments: RLE focused exam: Vasc: DP/PT pulses fully palpable 2/4 b/l. Skin temperature gradient warm to warm from proximal to distal. Cap refill < 3 seconds to all digits b/l. No edema noted b/l Neuro: Gross and protective sensation grossly intact b/l. Derm: Posterior right heel ulceration measuring 1.9 cm X 1.3 cm with 10% fibrotic and 90% granular base, superficial, negative probe to bone, mild isabel- wound erythema, positive mild serous drainage, Slight maceration. No other open lesions, wounds, xerosis, abnormal pigmentation or abnormal growths noted b/l. Erythema noted over her right HAV medial eminence. MSK: B/l HAV deformities noted. No other gross deformities noted. ROM WNL to all major joints b/l. MMT 5/5 in all major muscle groups b/l. - Neurological Exam Neurological Exam: Alert Assessment and Plan - Assessment and Plan (Free Text) Assessment: 78 y/o F patient with posterior right heel decubitous ulceration. Plan: Patient seen and evaluated Discussed with attending Dr. Morrison Charts, labs and vitals reviewed; Afebrile, WBCs 11.9 Wound Culture: Coag neg staph Right Heel X-ray: no signs of OM R MRI: bone marrow edema in calcaneus without evidence of cortical destruction or erosion likely represent bone marrow reaction, possibility of OM less likely. Ordered JOSEPH/PVR Patient to wear Multipodus boots at all times while in bed ID consulted; Reccs appreciated. Continue IV abx as per ID Wound dressed with optifoam. Podiatry will continue to follow up patient while in house
--- NOTE | 2018-09-25 15:01 | CP.PCM.PN ---
Subjective - Date & Time of Evaluation Date of Evaluation: 09/25/18 Time of Evaluation: 10:00 - Subjective Subjective: Not in distress, no fevers, but still feels weak. Objective - Vital Signs/Intake and Output Vital Signs (last 24 hours): Temp Pulse Resp BP Pulse Ox 98.4 F 83 19 124/62 96 09/25/18 04:00 09/25/18 03:19 09/25/18 07:18 09/25/18 03:19 09/25/18 03:19 Intake and Output: 09/25/18 09/25/18 06:59 18:59 Intake Total 200 Output Total 50 Balance 150 - Medications Medications: Current Medications Albuterol/Ipratropium (Duoneb 3 Mg/0.5 Mg (3 Ml) Ud) 3 ml IH Q1H PRN PRN Reason: Shortness of Breath Last Admin: 09/18/18 08:32 Dose: 3 ml Albuterol/Ipratropium (Duoneb 3 Mg/0.5 Mg (3 Ml) Ud) 3 ml IH [id number] [facility] Last Admin: 09/25/18 07:16 Dose: 3 ml Amino Acid Protein (Prostat 15 G Packet) 15 gm GT BID [facility] Last Admin: 09/24/18 18:00 Dose: Not Given Arformoterol Tartrate (Brovana) 15 mcg IH [id number] [facility] Last Admin: 09/25/18 07:16 Dose: 15 mcg Aspirin (Ecotrin) 81 mg PO DAILY [facility] Last Admin: 09/24/18 11:00 Dose: 81 mg Atorvastatin Calcium (Lipitor) 20 mg PO DIN [facility] Last Admin: 09/24/18 18:52 Dose: 20 mg Budesonide (Pulmicort Respules) 0.5 mg IH [id number] [facility] Last Admin: 09/25/18 07:16 Dose: 0.5 mg Diphenhydramine HCl (Benadryl) 25 mg IVP HS PRN PRN Reason: Insomnia Last Admin: 09/23/18 20:11 Dose: 25 mg Doxycycline Hyclate (Doryx) 100 mg PO Q12 [facility]; Protocol Last Admin: 09/24/18 22:24 Dose: 100 mg Escitalopram Oxalate (Lexapro) 10 mg PO DAILY [facility] Last Admin: 09/24/18 18:30 Dose: 10 mg Famotidine (Pepcid) 20 mg PO HS [facility] Last Admin: 09/24/18 22:25 Dose: 20 mg Heparin Sodium (Porcine) (Heparin) 5,000 units SC Q12 [facility]; Protocol Last Admin: 09/24/18 21:56 Dose: 5,000 units Meropenem 250 mg/ Sodium (Chloride) 100 mls @ 100 mls/hr IVPB Q12H [facility]; Protocol Stop: 09/27/18 06:16 Last Admin: 09/25/18 05:21 Dose: 100 mls/hr Lidocaine HCl (Xylocaine 2%) 1 ea TOP DAILY [facility] Last Admin: 09/24/18 19:57 Dose: Not Given Methylprednisolone (Solu-Medrol) 40 mg IVP Q12 [facility] Last Admin: 09/24/18 21:57 Dose: 40 mg Metoprolol Tartrate (Lopressor) 25 mg PO BID [facility] Last Admin: 09/24/18 18:52 Dose: 25 mg Montelukast Sodium (Singulair) 10 mg PO HS [facility] Last Admin: 09/24/18 22:25 Dose: 10 mg Mupirocin (Bactroban Ointment) 0 gm TOP DAILY [facility] Stop: 09/29/18 10:01 Last Admin: 09/24/18 10:00 Dose: 1 applic Ondansetron HCl (Zofran Inj) 4 mg IVP Q6H PRN PRN Reason: Nausea/Vomiting Last Admin: 09/24/18 11:39 Dose: 4 mg Pantoprazole Sodium (Protonix Inj) 40 mg IVP DAILY [facility] Last Admin: 09/24/18 11:00 Dose: 40 mg Polyethylene Glycol (Miralax) 17 gm PO BID [facility] Last Admin: 09/24/18 19:49 Dose: Not Given Pregabalin (Lyrica) 50 mg PO HS [facility] Last Admin: 09/24/18 22:24 Dose: 50 mg Sildenafil Citrate (Revatio) 20 mg PO BID [facility] Last Admin: 09/24/18 18:52 Dose: 20 mg Silver Sulfadiazine (Silvadene 1% 25 Gm) 0 gm TP DAILY [facility] Last Admin: 09/24/18 19:55 Dose: 1 gm Verapamil HCl (Verapamil Inj) 2.5 mg IVP Q6H PRN PRN Reason: For heart rate >120 - Labs Labs: 09/25/18 07:30 09/25/18 07:30 - Constitutional Appears: Chronically Ill - Head Exam Head Exam: NORMAL INSPECTION - Respiratory Exam Respiratory Exam: Decreased Breath Sounds - Cardiovascular Exam Cardiovascular Exam: +S1, +S2 - GI/Abdominal Exam GI & Abdominal Exam: Soft. absent: Tenderness Assessment and Plan - Assessment and Plan (Free Text) Plan: Assessment consider bilateral healthcare-associated pneumonia in this patient with worsening respiratory failure probably combination of vascular congestion from worsening renal failure now on hemodialysis S/P UTI with E. coli, uncomplicated. probably cystitis thoracic vertebral compression fractures S/P kyphoplasty COPD chronic renal failure pulmonary HTN PVD GERD Plan continue intermittent Vancomycin and continue Merrem and continue Doxycycline day 4; repeat blood cultures are negative; urine Legionella Ag is negative will continue to monitor clinically overall prognosis is poor
[2018-09-25 16:04] LABS: ARTERIAL BLOOD GAS HCO3 22.2 mmol/L (21-28); ARTERIAL BLOOD GAS HEMOGLOBIN 8.7 g/dL (11.7-17.4); ARTERIAL BLOOD GAS O2 CAPACITY 12.1 mL/dl (16-24); ARTERIAL BLOOD GAS O2 CONTENT 11.8 ML/dl (15-23); ARTERIAL BLOOD GAS O2 SAT 97.9 % (95-98); ARTERIAL BLOOD GAS PCO2 32 mm/Hg (35-45); ARTERIAL BLOOD GAS PH 7.45 (7.35-7.45); ARTERIAL BLOOD GAS TCO2 23.2 mmol.L (22-28)
--- NOTE | 2018-09-25 16:53 | CP.PCM.PCO ---
Physician Communication Note - Physician Communication Note Physician Communication Note: pt post permacath insertion,to get HD today, per nephro, on high flow oxyge
--- NOTE | 2018-09-25 17:41 | VASCULAR ---
PROCEDURE: Ultrasound and fluoroscopic tunneled left IJ dialysis catheter. CLINICAL HISTORY: ESRD. Metastatic breast CA. Needs tunneled dialysis catheter PHYSICIAN(S): Dallas Denise M.D. TECHNIQUE: The relative risks and indications for the procedure were explained to the patient and informed written consent obtained. The patient was placed supine on the arteriography table and the left neck/chest was prepped and draped in the usual sterile fashion. 1% Xylocaine was used to anesthetize the skin and soft tissues at the puncture site. Conscious sedation and monitoring were provided throughout the procedure by a nurse. Under direct ultrasound guidance, the leftinternal jugular vein was punctured with a micropuncture set. A 0.035 Glidewire was advanced into the IVC. Sequential dilatation was performed with subsequent placement of a 32 cmCannon II catheter with its tip in the right atrium. A retrograde tunnel below the left clavicle was performed. The catheter was trimmed and the hub attached. Both ports aspirate and inject easily. The catheter was secured and a dressing applied. The patient tolerated the procedure well. IMPRESSION: 1. Ultrasound and fluoroscopically placed left IJ tunneled dialysis catheter.
--- NOTE | 2018-09-25 17:57 | PN ---
DATE: 09/25/2018 SUBJECTIVE: The patient is 78-year-old, seen with short of breath. She is sleepy, but arousable. PHYSICAL EXAMINATION: VITAL SIGNS: The patient is afebrile, pulse 83, respiration 19, and blood pressure 119/73. LUNGS: Bilateral fair airflow. Soft crackle at bases. HEART: S1 and S2 audible. ABDOMEN: Soft and nontender. No rebound. No guarding. NEUROLOGIC: She is sleepy, but arousable. EXTREMITIES: Bilateral leg, +1 edema. She has sacral decubitus. Right heel ulcer wrapped in dressing. LABORATORY DATA: WBC 11.9, hemoglobin 8.6, hematocrit 27.9, and platelets of 128. Chemistry; sodium 136, potassium 5.1, chloride 102, CO2 of 26, BUN 63, creatinine 4.0, and blood sugar 90. ASSESSMENT AND PLAN: 1. Acute on chronic renal failure. 2. Chronic obstructive pulmonary disease. 3. Bilateral pneumonia, improving. 4. Metabolic encephalopathy, improving. 5. Anemia, status post multiple blood transfusions. PLAN: The patient is going for Permcath catheter for dialysis. We will continue nebulizer treatment. Currently, she is on doxycycline, we will continue that. She is on DVT prophylaxis. She is on meropenem, we will continue that. She has been started on PEG feeding and we will follow up the patient in a.m. Charla Inman MD
[2018-09-25] MEDS: Lidocaine 2% Jelly (30 ml) TOP SCH (17:59)
--- NOTE | 2018-09-25 18:55 | PN ---
DATE: 09/25/2018 REASON FOR CONSULTATION AND FOLLOWUP: Cardiac evaluation, respiratory insufficiency, multiorgan dysfunction, acute kidney injury started on dialysis, dialysis catheter clogged may need revision of dialysis catheter on high flow noninvasive ventilator. SUBJECTIVE: The patient denies any chest pain, shortness of breath, any palpitations. Hooked up with dialysis, but cannot be done, because dialysis catheter is clogged and dialysis machine is buzzing. PHYSICAL EXAMINATION: VITAL SIGNS: Temperature is afebrile, heart rate 83, and blood pressure 132/71. HEENT: PERRLA. Extraocular muscles intact. NECK: Supple. No carotid bruit. No thyromegaly. CHEST: Clear to auscultation. HEART: S1 and S2 regular. ABDOMEN: Soft. EXTREMITIES: Clubbing and cyanosis, negative. LABORATORY DATA: Blood workup as follows; WBC 11.9, hemoglobin 8.6, hematocrit 27.9, platelet count 128. Chemistry shows sodium 130, potassium 5.0, chloride 102, carbon dioxide 26, anion gap of 13, BUN 60, and creatinine 4. Total protein 4.6, albumin 2.3, and albumin-globulin ratio 1. IMPRESSION: A 78-year-old female with past medical history significant for coronary artery disease, status post coronary artery bypass graft, admitted with multilobar pneumonia; acute kidney injury, started on dialysis. Family made initial DNR/DNI, but later on family reverted, now the patient is Full Code. Recent echo shows ejection fraction of 55% to 60%, moderate aortic regurgitation, [id number] tricuspid regurgitation, LV systolic pressure 57, consistent of [id number]-bs-bjrcptht pulmonary hypertension. The patient had a recent right heart catheterization because of pulmonary hypertension that revealed upper limit of normal on the ratio except increased pulmonary vascular resistance; admitted with pneumonia, acute kidney injury on chronic renal insufficiency, was on dialysis but this morning dialysis catheter clogged in spite of giving TPA, possibly needs revision. RECOMMENDATIONS: Continue antibiotics, possible dialysis catheter revision today, continue high flow noninvasive ventilator dialysis after the dialysis catheter established, continue increased nutritional support. Continue p.r.n. verapamil, continue metoprolol. Condition of the patient is critical. Long-term prognosis guarded. We will follow with you. Thank you Dr. Inman for providing us the opportunity in taking care of the patient, Yumiko Ramirez. Bibi Welsh MD [facility] # [id number]
--- NOTE | 2018-09-25 20:06 | PN ---
DATE: 09/25/2018 SUBJECTIVE: The patient is seen lying in bed in the ICU. She is sedated. She is not really responding to verbal commands at this time. Dialysis was attempted earlier today via her femoral catheter. The catheter was functioning poorly. Now, she had a PermCath placed in her left IJ. She is receiving high-flow oxygen. PHYSICAL EXAMINATION: GENERAL: Elderly lady lying in bed. VITAL SIGNS: Blood pressure 132/71, heart rate 86, respiratory rate 18-24, and temperature 98.4. HEENT: Normocephalic and atraumatic. Positive pallor. NECK: Supple. No JVD. LUNGS: Bilateral equal air entry, bilateral rhonchi, crackles left lung field. CARDIAC: S1 and S2. Regular rate and rhythm. No murmur. No rub. ABDOMEN: Obese, distended, soft, and nontender. Bowel sounds present. EXTREMITIES: No lower extremity edema. INTAKE AND OUTPUT: 850/230. LABORATORY DATA: WBC 11.9, hemoglobin 8.6, hematocrit 27.9, and platelets 128. Sodium 136, potassium 5.1, chloride 102, CO2 of 26, BUN 63, creatinine 4, glucose 90, and calcium 8.8. AST 47, ALT 36, albumin 2.3, and globulin 2.3. CURRENT MEDICATIONS: Bactroban, Brovana, doxycycline 100 every 12 hours, DuoNeb, albuterol, Ecotrin, heparin, Lexapro, Lipitor 20 every 12 hours, Lopressor 25 b.i.d., Lyrica 50, meropenem 250 every 12 hours, MiraLax 17 g b.i.d., Pepcid, Pro-Stat 15 g b.i.d., Protonix, Revatio 20 b.i.d., Singulair, Solu-Medrol, and Zofran. ASSESSMENT: 1. Acute kidney injury, likely acute tubular necrosis in the setting of multiorgan dysfunction, sepsis, multilobar pneumonia, and respiratory failure. 2. Severe chronic obstructive pulmonary disease/pulmonary hypertension. 3. Multilobar pneumonia. 4. Hyperkalemia. 5. Severe anemia. 6. Stage IV breast cancer. 7. History of coronary artery disease/coronary artery bypass graft. 8. Peripheral vascular disease. PLAN: 1. Continue antibiotics as per ID recommendations. 2. Continue high-flow oxygen for respiratory failure. 3. Dialysis today. 4. We will definitely need dialysis for the short term. 5. May need long-term dialysis. 6. Monitor H and H. 7. Check iron stores. Check PTH. 8. Discussed with Dr. Panchal, discussed with ICU nursing staff, and discussed with dialysis nursing staff. More than 35 minutes spent in the care of this critically ill patient. Mayelin Paul MD
[2018-09-26] MEDS: Albuterol-Ipratrop 3 mg / 0.5 (3 ml) UD IH SCH ×4 (01:39→21:01)
[2018-09-26] MEDS: Albuterol-Ipratrop 3 mg / 0.5 (3 ml) UD IH PRN (04:49)
[2018-09-26] MEDS: Arformoterol 15 mcg/2 ml Inh Sol IH SCH ×2 (07:09→21:01)
[2018-09-26] MEDS: Budesonide 0.5 mg/2 ml Inhal Susp UD IH SCH ×2 (07:10→21:02)
[2018-09-26 07:22] LABS: HEMOGLOBIN 8.8 g/dL (12.0-16.0); LYMPH # 0.7 (1.2-3.4); LYMPH % 4.3 % (22.0-35.0); MEAN CELL VOLUME 92.8 fl (80.0-105.0); MEAN CORPUSCULAR HEMOGLOBIN 28.9 pg (25.0-35.0); MEAN CORPUSCULAR HGB CONC 31.1 g/dl (31.0-37.0); MONO # 0.3 (0.1-0.6); MONO % 2.2 % (1.0-6.0); PLATELET COUNT 90 10^3/uL (120.0-450.0); RBC 3.05 10^6/uL (3.5-6.1); RED CELL DISTRIBUTION WIDTH 17.8 % (11.5-14.5); WHITE BLOOD COUNT 15.2 10^3/uL (4.5-11.0)
[2018-09-26 07:43] LABS: ALBUMIN 2.3 g/dL (3.0-4.8); CALCIUM 8.3 mg/dL (8.4-10.5)
[2018-09-26 08:00] LABS: IRON 31 ug/dL (45-180)
[2018-09-26 08:09] LABS: % IRON SATURATION 21 % (20-55); TOTAL IRON BINDING CAPACITY 151 ug/dL (265-497)
--- NOTE | 2018-09-26 09:12 | PN ---
DATE: 09/26/2018 PULMONARY NOTE SUBJECTIVE: The patient appears comfortable this morning. She is not short of breath at rest. She is awake and alert. OBJECTIVE: VITAL SIGNS: The temperature is 97.0, pulse is 81, respiratory rate 18, blood pressure 118/60. Oxygen saturation on high-flow delivery is 95%. HEENT: Normocephalic, atraumatic. NECK: No JVD. CARDIOVASCULAR: Systolic ejection murmur at the lower left sternal border. No S3 gallop. LUNGS: Decreased breath sounds at the bases. Much less/minimal rhonchi. No wheezing. EXTREMITIES: Less edema. No cyanosis, no clubbing. Calves are nontender to palpation. GASTROINTESTINAL: Abdomen is soft, nontender and nondistended. Bowel sounds are positive. SKIN: Multiple ecchymotic areas - arms. Multiple sacral decubiti. The right foot remains wrapped. NEUROLOGIC: Limited at the present time. PERTINENT LABORATORY DATA: Chest x-ray was done this morning and reviewed. The chest x-ray appears improved-- with less pulmonary vascular congestion. There are also less lower lobe changes, with increased aeration noted to the left lower lobe. Official results are pending. IMPRESSION: 1. Advanced chronic obstructive pulmonary disease. 2. Congestive heart failure. 3. Possible pneumonia - right upper lobe. 4. Pulmonary hypertension. 5. Worsening sacral decubitus. 6. Breast cancer. 7. Peripheral vascular disease. 8. Failure to thrive. 9. Renal insufficiency. PLAN: The patient appears comfortable this morning. She is not short of breath at rest. She is awake and alert. I did discuss the case with the night nurse at length. I have also discussed the case with the granddaughter (at bedside) at length. I did review the chest x-ray from this morning. The chest x-ray appears improved. Findings are noted above. Official results are pending. The patient is status post hemodialysis yesterday - which I am sure helped the chest x-ray. I would continue with the antibiotic coverage as per Infectious Disease. There are no temperatures noted. Repeat a.m. labs are pending. On physical exam, there is much less bronchospasm noted. I will continue the current nebulizer treatments and decrease the intravenous steroids this morning. The patient also remains on Revatio - for pulmonary hypertension. Inputs by renal and cardiology are also noted. Clinical status of the patient is significantly improved - compared to last week. However, again, the future status/prognosis for this patient remains very guarded. I will discuss the above with the entire ICU team in the next few moments. I will also see above with the attending physician later this morning. Anthony Hameed MD MTDD
[2018-09-26] MEDS ORDERED: Iohexol 240 (50 ml) ONE (10:07)
--- NOTE | 2018-09-26 10:58 | PN ---
DATE: 09/26/2018 SUBJECTIVE: The patient seen and examined at bedside. She is comfortable. PHYSICAL EXAMINATION: VITAL SIGNS: She is on 50% of FiO2 and 50 liters per minute on high-flow. Her oxygen saturation varies between 94% and 96%. Blood pressure 97/43 with mean arterial pressure 63, heart rate 86, respiratory rate 19. HEENT: Head and neck atraumatic. LUNGS: Few crackles bilaterally. HEART: Regular rate and rhythm. S1 and S2, normal. ABDOMEN: Soft, nontender, nondistended. MUSCULOSKELETAL: No C/C/E. NEUROLOGIC: The patient was seen moving all extremities spontaneously. SKIN: Moist. PSYCHIATRIC: The patient is mildly confused, but pleasantly look so. LABORATORY DATA: WBC 15.2, hemoglobin 8.8, platelet count 19. Sodium 136, potassium 3.6, chloride 100, carbon dioxide 31, BUN 27, creatinine 2.2 Chest x-ray showed bilateral fluffy infiltrates with small pleural effusions bibasilarly. Chest x-ray appears to be unchanged since yesterday. MEDICATIONS: DuoNeb p.r.n. and every 6 hours on standard basis, Brovana, aspirin, Lipitor, Pulmicort, Benadryl p.r.n., doxycycline, Lexapro, Pepcid, heparin subcu, meropenem, Solu-Medrol 40 mg IV every 12 hours, metoprolol 25 mg p.o. b.i.d., Singulair, Zofran p.r.n., Protonix, Lyrica, Revatio, verapamil. ASSESSMENT AND PLAN: This is a 78-year-old lady who presented with hypoxemic respiratory failure, likely due to combination of factors including diastolic congestive heart failure exacerbation, healthcare-associated pneumonia/CAP, progression of fibrosis associated with advanced chronic obstructive pulmonary disease, requiring noninvasive positive pressure ventilation. The patient developed acute kidney injury, likely due to acute tubular necrosis in the setting of sepsis. She requires dialysis. She tolerated dialysis well yesterday. She was able to be weaned from BiPAP to high-flow oxygen. She continued to be on antibiotics, steroids, and bronchodilators. We will try to get her out of bed to chair today with continued chest physical therapy and maybe incentive spirometry. She appears to be able to follow commands. We will continue with deep vein thrombosis and gastrointestinal prophylaxis. I would still recommend bilevel positive airway pressure at night. Addendum: was not able to get out of bed to chair. tolerates high flow 02 well (50%/50L/min). mental status improved-->ok to downgrade to tele ccm time 40 min Bayron Panchal MD MTDD
[2018-09-26] MEDS: POLYETHYLENE GLYCOL 3350 17 GM/Dose PACKET PO SCH ×2 (11:00→18:46)
[2018-09-26] MEDS: MethylPREDNISolone 40 mg Vial IVP SCH ×2 (12:00→20:59)
--- NOTE | 2018-09-26 13:34 | CP.CCUPN ---
CCU Subjective - Physician Review Subjective (Free Text): 09/26/18 13:29 Bernadine White, PGY-1 ICU Progress Note Pt was seen and examined this AM with ICU team. Pt is more responsive today, but is still only AOx2. ROS is limited due to pt only being AOx2. Pt is on high flow O2 and sating well. Pt had dialysis overnight, from [facility] where 1L of fluid was removed. At this time the pt does not admit to any acute complaints. 09/26/18 13:29 CCU Objective - Vital Signs / Intake & Output Vital Signs (Last 4 hours): Vital Signs Pulse Resp BP Pulse Ox 09/26/18 12:44 77 20 100/52 L 91 L 09/26/18 12:32 20 09/26/18 12:29 78 19 105/52 L 96 09/26/18 12:14 83 21 109/44 L 95 09/26/18 12:00 84 82 L 09/26/18 11:59 85 23 113/58 L 81 L 09/26/18 11:44 88 22 116/55 L 91 L 09/26/18 11:29 84 17 119/58 L 92 L 09/26/18 11:14 86 19 116/49 L 94 L 09/26/18 11:00 90 21 92 L 09/26/18 10:59 90 20 106/50 L 93 L 09/26/18 10:45 85 103/42 L 09/26/18 10:44 84 18 105/49 L 93 L 09/26/18 10:29 87 19 103/42 L 95 09/26/18 10:14 89 21 105/58 L 92 L 09/26/18 10:00 87 17 94 L 09/26/18 09:59 88 18 92/53 L 91 L 09/26/18 09:44 89 20 110/45 L 91 L Intake and Output (Last 8hrs): Intake & Output 09/25/18 09/26/18 09/26/18 22:59 06:59 14:59 Intake Total 160 Output Total 75 Balance 85 Weight 149 lb 6 oz Intake: Oral 60 Other 100 Output: Urine 75 2-way Urethral 75 Other: # Bowel Movements 1 - Physical Exam Head: Positive for: Atraumatic, Normocephalic, Contusion (over the left eyebrow, no stepoff). Negative for: Tenderness (no tenderness to plapation over the contusion) Pupils: Positive for: PERRL Extroacular Muscles: Positive for: EOMI Conjunctiva: Positive for: Normal Mouth: Positive for: Moist Mucous Membranes Neck: Positive for: Normal Range of Motion Respiratory/Chest: Positive for: Clear to Auscultation, Good Air Exchange, Wheezes (end expiratory wheezes), Rhonchi (diffuse rhonchi ), Other ([place] to the right upper chest wall. ). Negative for: Respiratory Distress, Accessory Muscle Use Cardiovascular: Positive for: Regular Rate and Rhythm, Normal S1, S2. Negative for: Murmurs Abdomen: Positive for: Normal Bowel Sounds. Negative for: Tenderness, Distention, Peritoneal Signs Back: Positive for: Normal Inspection, Decubitus Ulcer (foul odor, left buttock open wound 5x6cm, w/surrounding erythema, not draining; right buttock 2.5x3 cm not open, erythematous; + increased warmth; no streaking from either wound) Upper Extremity: Positive for: Normal Inspection. Negative for: Cyanosis, Edema Lower Extremity: Positive for: Edema (2+ bilateral lower extremity pitting edema ) Neurological: Positive for: GCS=15, CN II-XII Intact, Speech Normal Skin: Positive for: Warm, Dry, Normal Color, Other (Patient has foul smelling wounds on buttocks. Left buttocks: stage 1, open wound. Right buttocks: skin break down 2 1/2 by 3 inches). Negative for: Rashes Psychiatric: Positive for: Alert (now oriented to person and place) - Medications Active Medications: Active Medications Generic Name Dose Route Start Last Admin Trade Name Freq PRN Reason Stop Dose Admin Albuterol/Ipratropium 3 ml 09/18/18 08:26 09/26/18 04:49 Duoneb 3 Mg/0.5 Mg (3 Ml) Ud IH 3 ml Q1H PRN Administration Shortness of Breath Albuterol/Ipratropium 3 ml 09/21/18 14:00 09/26/18 13:06 Duoneb 3 Mg/0.5 Mg (3 Ml) Ud IH 3 ml [id number] TORI Administration Amino Acid Protein 15 gm 09/24/18 18:00 09/25/18 17:53 Prostat 15 G Packet GT Not Given BID TORI Arformoterol Tartrate 15 mcg 09/13/18 20:00 09/26/18 07:09 Brovana IH 15 mcg [id number] TORI Administration Aspirin 81 mg 09/14/18 10:00 09/26/18 10:46 Ecotrin PO 81 mg DAILY TORI Administration Atorvastatin Calcium 20 mg 09/14/18 17:00 09/25/18 17:52 Lipitor PO 20 mg DIN TORI Administration Budesonide 0.5 mg 09/15/18 08:00 09/26/18 07:10 Pulmicort Respules IH 0.5 mg [id number] TORI Administration Diphenhydramine HCl 25 mg 09/23/18 12:15 09/23/18 20:11 Benadryl IVP 25 mg HS PRN Administration Insomnia Doxycycline Hyclate 100 mg 09/13/18 22:00 09/26/18 10:45 Doryx PO 100 mg Q12 TORI Administration Protocol Escitalopram Oxalate 10 mg 09/14/18 10:00 09/26/18 10:44 Lexapro PO 10 mg DAILY TORI Administration Famotidine 20 mg 09/20/18 07:54 09/25/18 21:41 Pepcid PO 20 mg HS TORI Administration Heparin Sodium (Porcine) 5,000 units 09/24/18 22:00 09/25/18 22:14 Heparin SC 5,000 units Q12 TORI Administration Protocol Meropenem 250 mg/ Sodium 100 mls @ 100 mls/hr 09/20/18 06:15 09/26/18 05:19 Chloride IVPB 09/27/18 06:16 100 mls/hr Q12H TORI Administration Protocol Lidocaine HCl 1 ea 09/20/18 10:40 09/25/18 17:59 Xylocaine 2% TOP 1 applic DAILY TORI Administration Methylprednisolone 30 mg 09/26/18 10:00 Solu-Medrol IVP Q12 TORI Metoprolol Tartrate 25 mg 09/23/18 10:15 09/26/18 10:45 Lopressor PO 25 mg BID TORI Administration Montelukast Sodium 10 mg 09/13/18 22:00 09/25/18 22:13 Singulair PO 10 mg HS TORI Administration Mupirocin 0 gm 09/20/18 10:00 09/25/18 08:00 Bactroban Ointment TOP 09/29/18 10:01 1 applic DAILY TORI Administration Ondansetron HCl 4 mg 09/24/18 11:15 09/24/18 11:39 Zofran Inj IVP 4 mg Q6H PRN Administration Nausea/Vomiting Pantoprazole Sodium 40 mg 09/23/18 10:00 09/25/18 09:33 Protonix Inj IVP 40 mg DAILY TORI Administration Polyethylene Glycol 17 gm 09/14/18 10:00 09/25/18 18:02 Miralax PO Not Given BID TORI Pregabalin 50 mg 09/13/18 22:00 09/25/18 22:13 Lyrica PO 50 mg HS TORI Administration Sildenafil Citrate 20 mg 09/13/18 19:30 09/25/18 17:52 Revatio PO 20 mg BID TORI Administration Silver Sulfadiazine 0 gm 09/14/18 10:00 09/25/18 10:00 Silvadene 1% 25 Gm TP Not Given DAILY TORI Verapamil HCl 2.5 mg 09/22/18 15:50 Verapamil Inj IVP Q6H PRN For heart rate >120 - Patient Studies Lab Studies: Microbiology Studies 09/23/18 22:34 MRSA Culture (Admit) - Final Naris MRSA NOT DETECTED Lab Studies 09/26/18 09/26/18 09/26/18 Range/Units 07:30 05:30 05:30 WBC 15.2 H D (4.5-11.0) 10^3/uL RBC 3.05 L (3.5-6.1) 10^6/uL Hgb 8.8 L (12.0-16.0) g/dL Hct 28.3 L (36.0-48.0) % MCV 92.8 (80.0-105.0) fl MCH 28.9 (25.0-35.0) pg MCHC 31.1 (31.0-37.0) g/dl RDW 17.8 H (11.5-14.5) % Plt Count 90 L (120.0-450.0) 10^3/uL Neut % (Auto) 93.5 H (50.0-68.0) % Lymph % (Auto) 4.3 L (22.0-35.0) % Freestone % (Auto) 2.2 (1.0-6.0) % Eos % (Auto) 0.0 L (1.5-5.0) % Baso % (Auto) 0.0 (0.0-3.0) % Lymph # (Auto) 0.7 L (1.2-3.4) Freestone # (Auto) 0.3 (0.1-0.6) Eos # (Auto) 0.0 (0.0-0.7) Baso # (Auto) 0.00 (0.0-2.0) K/mm3 Absolute Neuts (auto) 14.17 H (1.4-6.5) pCO2 (35-45) mm/Hg pO2 (80-100) mm/Hg HCO3 (21-28) mmol/L ABG pH (7.35-7.45) ABG Total CO2 (22-28) mmol.L ABG O2 Saturation (95-98) % ABG O2 Content (15-23) ML/dl ABG Base Excess (-2.0-3.0) mmol/L ABG Hemoglobin (11.7-17.4) g/dL ABG Carboxyhemoglobin (0.5-1.5) % POC ABG HHb (Measured) (0-5) % ABG Methemoglobin (0.0-3.0) % ABG O2 Capacity (16-24) mL/dl Hgb O2 Saturation (95.0-98.0) % FiO2 % Sodium 136 (132-148) mmol/L Potassium 3.6 (3.6-5.0) mmol/L Chloride 100 (98-107) mmol/L Carbon Dioxide 31 (21-33) mmol/L Anion Gap 8 L (10-20) BUN 27 H (7-21) mg/dL Creatinine 2.2 H (0.7-1.2) mg/dl Est GFR ( Amer) 26 Est GFR (Non-Af Amer) 22 Random Glucose 61 L (70-110) mg/dL Calcium 8.3 L (8.4-10.5) mg/dL Iron 31 L (45-180) ug/dL TIBC 151 L (265-497) ug/dL % Saturation 21 (20-55) % Ferritin 890.0 ng/mL Total Bilirubin 0.7 (0.2-1.3) mg/dL AST 59 H D (14-36) U/L ALT 43 (7-56) U/L Alkaline Phosphatase 150 H (38-126) U/L Total Protein 4.6 L (5.8-8.3) g/dL Albumin 2.3 L (3.0-4.8) g/dL Globulin 2.3 gm/dL Albumin/Globulin Ratio 1.0 L (1.1-1.8) 09/25/18 Range/Units 15:51 WBC (4.5-11.0) 10^3/uL RBC (3.5-6.1) 10^6/uL Hgb (12.0-16.0) g/dL Hct (36.0-48.0) % MCV (80.0-105.0) fl MCH (25.0-35.0) pg MCHC (31.0-37.0) g/dl RDW (11.5-14.5) % Plt Count (120.0-450.0) 10^3/uL Neut % (Auto) (50.0-68.0) % Lymph % (Auto) (22.0-35.0) % Freestone % (Auto) (1.0-6.0) % Eos % (Auto) (1.5-5.0) % Baso % (Auto) (0.0-3.0) % Lymph # (Auto) (1.2-3.4) Freestone # (Auto) (0.1-0.6) Eos # (Auto) (0.0-0.7) Baso # (Auto) (0.0-2.0) K/mm3 Absolute Neuts (auto) (1.4-6.5) pCO2 32 L (35-45) mm/Hg pO2 80.0 (80-100) mm/Hg HCO3 22.2 (21-28) mmol/L ABG pH 7.45 (7.35-7.45) ABG Total CO2 23.2 (22-28) mmol.L ABG O2 Saturation 97.9 (95-98) % ABG O2 Content 11.8 L (15-23) ML/dl ABG Base Excess -1.4 (-2.0-3.0) mmol/L ABG Hemoglobin 8.7 L (11.7-17.4) g/dL ABG Carboxyhemoglobin 1.8 H (0.5-1.5) % POC ABG HHb (Measured) 2.1 (0-5) % ABG Methemoglobin 0.5 (0.0-3.0) % ABG O2 Capacity 12.1 L (16-24) mL/dl Hgb O2 Saturation 95.7 (95.0-98.0) % FiO2 50.0 % Sodium (132-148) mmol/L Potassium (3.6-5.0) mmol/L Chloride (98-107) mmol/L Carbon Dioxide (21-33) mmol/L Anion Gap (10-20) BUN (7-21) mg/dL Creatinine (0.7-1.2) mg/dl Est GFR ( Amer) Est GFR (Non-Af Amer) Random Glucose (70-110) mg/dL Calcium (8.4-10.5) mg/dL Iron (45-180) ug/dL TIBC (265-497) ug/dL % Saturation (20-55) % Ferritin ng/mL Total Bilirubin (0.2-1.3) mg/dL AST (14-36) U/L ALT (7-56) U/L Alkaline Phosphatase (38-126) U/L Total Protein (5.8-8.3) g/dL Albumin (3.0-4.8) g/dL Globulin gm/dL Albumin/Globulin Ratio (1.1-1.8) Laboratory Results - last 24 hr 09/25/18 09/26/18 09/26/18 15:51 05:30 05:30 WBC 15.2 H D RBC 3.05 L Hgb 8.8 L Hct 28.3 L MCV 92.8 MCH 28.9 MCHC 31.1 RDW 17.8 H Plt Count 90 L Neut % (Auto) 93.5 H Lymph % (Auto) 4.3 L Freestone % (Auto) 2.2 Eos % (Auto) 0.0 L Baso % (Auto) 0.0 Lymph # (Auto) 0.7 L Freestone # (Auto) 0.3 Eos # (Auto) 0.0 Baso # (Auto) 0.00 Absolute Neuts (auto) 14.17 H pCO2 32 L pO2 80.0 HCO3 22.2 ABG pH 7.45 ABG Total CO2 23.2 ABG O2 Saturation 97.9 ABG O2 Content 11.8 L ABG Base Excess -1.4 ABG Hemoglobin 8.7 L ABG Carboxyhemoglobin 1.8 H POC ABG HHb (Measured) 2.1 ABG Methemoglobin 0.5 ABG O2 Capacity 12.1 L Hgb O2 Saturation 95.7 FiO2 50.0 Sodium 136 Potassium 3.6 Chloride 100 Carbon Dioxide 31 Anion Gap 8 L BUN 27 H Creatinine 2.2 H Est GFR ( Amer) 26 Est GFR (Non-Af Amer) 22 Random Glucose 61 L Calcium 8.3 L Iron TIBC % Saturation Ferritin 890.0 Total Bilirubin 0.7 AST 59 H D ALT 43 Alkaline Phosphatase 150 H Total Protein 4.6 L Albumin 2.3 L Globulin 2.3 Albumin/Globulin Ratio 1.0 L 09/26/18 07:30 WBC RBC Hgb Hct MCV MCH MCHC RDW Plt Count Neut % (Auto) Lymph % (Auto) Freestone % (Auto) Eos % (Auto) Baso % (Auto) Lymph # (Auto) Freestone # (Auto) Eos # (Auto) Baso # (Auto) Absolute Neuts (auto) pCO2 pO2 HCO3 ABG pH ABG Total CO2 ABG O2 Saturation ABG O2 Content ABG Base Excess ABG Hemoglobin ABG Carboxyhemoglobin POC ABG HHb (Measured) ABG Methemoglobin ABG O2 Capacity Hgb O2 Saturation FiO2 Sodium Potassium Chloride Carbon Dioxide Anion Gap BUN Creatinine Est GFR ( Amer) Est GFR (Non-Af Amer) Random Glucose Calcium Iron 31 L TIBC 151 L % Saturation 21 Ferritin Total Bilirubin AST ALT Alkaline Phosphatase Total Protein Albumin Globulin Albumin/Globulin Ratio Radiology Impressions: Radiology Impressions Interventional Vascular Procedure 09/25/18 10:58 IMPRESSION: 1. Ultrasound and fluoroscopically placed left IJ tunneled dialysis catheter. Critical Care Progress Note - Nutrition Nutrition: Nutrition Category Date Time Status Liquid Diet [DIET] Diets 09/22/18 Lunch Ordered Assessment/Plan - Assessment and Plan (Free Text) Assessment: 78yo F with PMHx of Metastatic Breast CA, COPD, Pulm HTN, CKD, PVD, GERD, who is ICU was consulted for due to acute hypoxic resp failure and multi-organ failure. Pt continues to be on Bipap after weaning trial failed. Had dialysis yesterday where 1L of fluid was removed. Plan: Neuro: - AOx2 - Oriented to person and place. - Will cont to monitor Pulm: Acute hypoxic, hypercapnic Resp Failure: - Pt is tolerating highflow O2 on 51%FiO2 and is sating well. - CXR: "Significant centrilobular/panlobular emphysematous changes are again seen. Additionally, there are diffuse bilateral interstitial infiltrates likely representing pulmonary venous congestion. Bilateral alveolar-type infiltrates with bilateral effusions right larger than left also suspected.. Upside down U shaped lucency within the left CP angle region which is of uncertain etiology well could represent confluence of shadow artifact. Possibility of a changes related to a hiatal hernia not excluded. Consider lateral view of the chest for further evaluation." - Abx per ID recs - Procal elevated - Cont duonebs, brovana, pulmicort as ordered - Solumedrol 40mg IV BID - cont Sildenafil - Attempt will be made after dialysis to wean pt off of High-flow O2 and onto NC - f/u ABG - Maintain O2 sat >88% Cardio: Hx of CAD s/p CABG - BP control - Cont Asa, Lipitor, lopressor - would DC Lasix - follow up cardio Endo - FS control Heme: - Hgb went down to 7.6 yesterday. Was transfused 1 unit PRBC - Pts hgb is now 9.3, and has responded appropriately to transfusion. GI - LTFs downtrending - Pepcid Nephro: ARF: - Tolerated HD session yesterday and had 1L removed. - Permacath placed by IR on 09/25 - Pt had femoral shiley removed after permacath placement - Nephro recs appreciated GI: Pepcid DVT: Lovenox Dispo: Pt is stable for transfer to [facility]. Pt is stable on highflow O2, and pt is protecting her airway. Case seen and discussed with Dr. Abdulkadir White, PGY-1
--- NOTE | 2018-09-26 13:51 | CP.PCM.PN ---
Subjective - Date & Time of Evaluation Date of Evaluation: 09/26/18 Time of Evaluation: 10:15 - Subjective Subjective: Feeling a little better today, not short of breath at rest but still requiring oxygen at rest, no fevers. Objective - Vital Signs/Intake and Output Vital Signs (last 24 hours): Temp Pulse Resp BP Pulse Ox 98.4 F 83 17 132/71 92 L 09/25/18 04:00 09/25/18 11:00 09/25/18 11:00 09/25/18 10:33 09/25/18 11:00 Intake and Output: 09/25/18 09/25/18 06:59 18:59 Intake Total 200 Output Total 50 Balance 150 - Medications Medications: Current Medications Albuterol/Ipratropium (Duoneb 3 Mg/0.5 Mg (3 Ml) Ud) 3 ml IH Q1H PRN PRN Reason: Shortness of Breath Last Admin: 09/18/18 08:32 Dose: 3 ml Albuterol/Ipratropium (Duoneb 3 Mg/0.5 Mg (3 Ml) Ud) 3 ml IH [id number] [facility] Last Admin: 09/25/18 07:16 Dose: 3 ml Amino Acid Protein (Prostat 15 G Packet) 15 gm GT BID [facility] Last Admin: 09/24/18 18:00 Dose: Not Given Arformoterol Tartrate (Brovana) 15 mcg IH [id number] [facility] Last Admin: 09/25/18 07:16 Dose: 15 mcg Aspirin (Ecotrin) 81 mg PO DAILY [facility] Last Admin: 09/25/18 09:34 Dose: 81 mg Atorvastatin Calcium (Lipitor) 20 mg PO DIN [facility] Last Admin: 09/24/18 18:52 Dose: 20 mg Budesonide (Pulmicort Respules) 0.5 mg IH [id number] [facility] Last Admin: 09/25/18 07:16 Dose: 0.5 mg Diphenhydramine HCl (Benadryl) 25 mg IVP HS PRN PRN Reason: Insomnia Last Admin: 09/23/18 20:11 Dose: 25 mg Doxycycline Hyclate (Doryx) 100 mg PO Q12 [facility]; Protocol Last Admin: 09/25/18 09:34 Dose: 100 mg Escitalopram Oxalate (Lexapro) 10 mg PO DAILY [facility] Last Admin: 09/25/18 09:34 Dose: 10 mg Famotidine (Pepcid) 20 mg PO HS [facility] Last Admin: 09/24/18 22:25 Dose: 20 mg Heparin Sodium (Porcine) (Heparin) 5,000 units SC Q12 [facility]; Protocol Last Admin: 09/25/18 09:32 Dose: 5,000 units Meropenem 250 mg/ Sodium (Chloride) 100 mls @ 100 mls/hr IVPB Q12H [facility]; Protocol Stop: 09/27/18 06:16 Last Admin: 09/25/18 05:21 Dose: 100 mls/hr Lidocaine HCl (Xylocaine 2%) 1 ea TOP DAILY [facility] Last Admin: 09/24/18 19:57 Dose: Not Given Methylprednisolone (Solu-Medrol) 40 mg IVP Q12 [facility] Last Admin: 09/25/18 09:34 Dose: 40 mg Metoprolol Tartrate (Lopressor) 25 mg PO BID [facility] Last Admin: 09/24/18 18:52 Dose: 25 mg Montelukast Sodium (Singulair) 10 mg PO HS [facility] Last Admin: 09/24/18 22:25 Dose: 10 mg Mupirocin (Bactroban Ointment) 0 gm TOP DAILY [facility] Stop: 09/29/18 10:01 Last Admin: 09/24/18 10:00 Dose: 1 applic Ondansetron HCl (Zofran Inj) 4 mg IVP Q6H PRN PRN Reason: Nausea/Vomiting Last Admin: 09/24/18 11:39 Dose: 4 mg Pantoprazole Sodium (Protonix Inj) 40 mg IVP DAILY [facility] Last Admin: 09/25/18 09:33 Dose: 40 mg Polyethylene Glycol (Miralax) 17 gm PO BID [facility] Last Admin: 09/24/18 19:49 Dose: Not Given Pregabalin (Lyrica) 50 mg PO HS [facility] Last Admin: 09/24/18 22:24 Dose: 50 mg Sildenafil Citrate (Revatio) 20 mg PO BID [facility] Last Admin: 09/25/18 09:34 Dose: 20 mg Silver Sulfadiazine (Silvadene 1% 25 Gm) 0 gm TP DAILY [facility] Last Admin: 09/24/18 19:55 Dose: 1 gm Verapamil HCl (Verapamil Inj) 2.5 mg IVP Q6H PRN PRN Reason: For heart rate >120 - Labs Labs: 09/25/18 07:30 09/25/18 07:30 - Constitutional Appears: Chronically Ill - Head Exam Head Exam: NORMAL INSPECTION - Respiratory Exam Respiratory Exam: Decreased Breath Sounds - Cardiovascular Exam Cardiovascular Exam: +S1, +S2 - GI/Abdominal Exam GI & Abdominal Exam: Soft. absent: Tenderness - Extremities Exam Additional comments: right foot with dressings in place Assessment and Plan - Assessment and Plan (Free Text) Plan: Assessment consider bilateral healthcare-associated pneumonia in this patient with worsening respiratory failure probably combination of vascular congestion from worsening renal failure now on hemodialysis consider right heel osteomyelitis S/P UTI with E. coli, uncomplicated. probably cystitis thoracic vertebral compression fractures S/P kyphoplasty COPD chronic renal failure pulmonary HTN PVD GERD Plan continue intermittent Vancomycin and continue Merrem and continue Doxycycline day 5; repeat blood cultures are negative; urine Legionella Ag is negative will continue to monitor clinically discussed with Dr. Morrison - reviewed MRI of right foot from 09/15/2018 - should consider left calcaneal osteomyelitis and will plan for 4 weeks of antibiotics (from time of MRI which is 09/15/2018) overall prognosis is poor
--- NOTE | 2018-09-26 13:55 | RAD ---
Date of service: 09/26/2018 HISTORY: Follow-up. COMPARISON: No prior. FINDINGS: LUNGS: Stable infiltrates/interstitial lung disease. PLEURA: Stable left pleural effusion inseparable from left lower lobe infiltrate and cardiac silhouette. CARDIOVASCULAR: Atherosclerotic calcifications identified primarily aortic arch. Satisfactory position of recently placed dialysis catheter employing a left internal jugular approach. No pneumothorax. Stable additional venous access catheter. OSSEOUS STRUCTURES: No significant abnormalities. VISUALIZED UPPER ABDOMEN: Normal. OTHER FINDINGS: None. IMPRESSION: No adverse findings common no pneumothorax following dialysis catheter. The remainder of the findings identified previously are unchanged.
--- NOTE | 2018-09-26 14:29 | PN ---
DATE: 09/26/2018 SUBJECTIVE: The patient is currently seen in CCU bed 5. She has tolerated her initial dialysis treatments without difficulty. The patient had been switched from a DNR/DNI to a full code. The patient does not have metastatic breast cancer. She has stage II breast cancer which appears to be stable. The patient and her family are interested in continuing dialysis both in the hospital and potentially as an outpatient. She has an indwelling left chest wall PermCath. She has a port in her right chest wall. She had hemodialysis yesterday with no ability to take fluid off because of hypotension. The patient does not appear to be in any distress today and no dialysis will take place today. MEDICATIONS: Medication list reviewed. The patient is currently on mupirocin, Benadryl, Brovana, doxycycline, DuoNeb, Ecotrin, subcu heparin, Lexapro, Lipitor, Lopressor, Lyrica, meropenem, MiraLax, Pepcid, Pro-Stat, Protonix, Pulmicort, Revatio, Silvadene cream, Singulair, Solu-Medrol, verapamil p.r.n., Xylocaine and Zofran p.r.n. OBJECTIVE: INTAKE/OUTPUT: Intake is recorded as 160, output is 75 mL with no significant output from dialysis as the patient had been hypotensive yesterday with hemodialysis. VITAL SIGNS: Presently blood pressure 103/42, temperature is 97.2, respiratory rate is 18 with a pulse of 85. Oxygen saturation is 94%. The patient is currently on high-flow oxygen. HEENT: Normocephalic, atraumatic. Conjunctivae are pale. Sclerae are nonicteric. NECK: Supple. No neck vein distention. CHEST: Scattered rhonchi and rales. No wheezing. CARDIOVASCULAR: Shows a regular rate and rhythm with no audible murmurs, rubs or gallops. ABDOMEN: Soft. Bowel sounds normal. No rebound, guarding or masses. EXTREMITIES: Show no lower extremity cyanosis, clubbing or edema. The patient has a left chest wall PermCath and a right chest wall port. LABORATORY DATA AND IMAGING: CBC, white blood cell count 15.2, hemoglobin stable 8.8 with a platelet count of 90,000. Chemistries today show normal electrolytes. Potassium is down to 3.6, BUN 27 with a creatinine of 2.2. Glucose is 61. Calcium is 8.3. Last phosphorus level was 5.1. Last magnesium level was 2.1. Iron saturations are 21%. Mild elevation of her AST. Albumin level is 2.3. Urines were unremarkable. Microbiology, her right leg wound culture was positive for coag-negative staph. Otherwise, all cultures were negative. Renal ultrasound done during the early part of the hospitalization showed bilateral renal cysts with no hydronephrosis. Last chest x-ray showed bilateral interstitial infiltrates. ASSESSMENT: 1. Acute renal failure, likely secondary to acute tubular necrosis in the setting of multiorgan failure, sepsis, multilobar pneumonia and respiratory failure. The patient had tolerated the initiation of dialysis without difficulty. Yesterday's dialysis was complicated by hypotension, so no fluid was removed. Lengthy discussion with the patient's family. Currently, the patient is making small amounts of urine and it appears that for the foreseeable future, she might be dialysis-dependent. Should the patient require outpatient dialysis, the family would be interested in pursuing this. 2. History of arteriosclerotic heart disease, status post coronary artery bypass grafting. 3. History of severe chronic obstructive pulmonary disease, on steroids and inhalation therapy. 4. History of bilateral pneumonia, continuing on antibiotic therapy. 5. Right leg infection. Wound culture was positive for coagulase-negative Staphylococcus. 6. Sacral decubitus, being treated by the nursing staff on antibiotic therapy. 7. Stage II breast cancer. The initial arrow was that it was felt that the patient had metastatic breast cancer. This is not true. The patient has stable stage II breast cancer and this is not an issue. 8. History of anemia. We will transfuse the patient to keep her hemoglobin in the 9 to 10 range. PLAN: 1. Lengthy discussion with the patient's family. They would consider doing outpatient dialysis should this be necessary. 2. Complete course of antibiotic therapy under the guidance of Infectious Disease for her bilateral pneumonia. 3. Continue high-flow oxygen therapy. Oxygen saturations are acceptable. 4. Plan for hemodialysis tomorrow. 5. Agree with possible transfer later today out of the coronary care unit up to telemetry. This will enable her to receive dialysis in the dialysis inpatient unit. Greater than 35 minutes spent in the care of this patient. Discussions with logistic manager, intensive care unit, coronary care unit staff and the patient's family along with the patient. Michael Mcmahan MD
--- NOTE | 2018-09-26 15:49 | PN ---
DATE: 09/26/2018 REASON FOR CONSULTATION AND FOLLOWUP: Cardiac evaluation, respiratory insufficiency, multiorgan dysfunction, acute kidney injury started on dialysis, on high flow noninvasive ventilator. The family is at the bedside. SUBJECTIVE: The patient is awake and alert, complaining of pain in the teeth. PHYSICAL EXAMINATION: GENERAL: Not in apparent distress. Lying flat in the bed. Mild respiratory insufficiency. VITAL SIGNS: Temperature is afebrile, heart rate 85, and blood pressure 103/42. HEENT: PERRLA. Extraocular muscles intact. NECK: Supple. No carotid bruit. No thyromegaly. CHEST: Clear to auscultation. HEART: S1 and S2, regular. ABDOMEN: Soft. EXTREMITIES: Clubbing and cyanosis, negative. LABORATORY DATA: Blood workup as follows: WBC 15.2, hemoglobin 8.8, hematocrit 28.3, platelet count 90. Chemistry shows sodium 130, potassium 3.6, chloride 112, carbon dioxide 31, anion gap of 8, BUN 26, and creatinine 2.2. IMPRESSION: A 78-year-old female with past medical history significant for coronary artery bypass surgery, admitted with multilobar pneumonia, acute kidney injury, started on dialysis, anemia status post packed RBC transfusion. Initially, the patient was [id number], but later on, the family reported an opportunity to full code. Recent echocardiogram shows ejection fraction 55% to 60%, moderate aortic regurgitation, mild to moderate tricuspid regurgitation, right ventricular systolic pressure 57. The patient had recently right heart catheterization, on Revatio, normal upper limit, normal right-sided pressure with pulmonary vascular resistance, PVI was elevated. Yesterday, the patient ____ off dialysis catheter because the dialysis catheter clogged, for possible dialysis today. Acute kidney injury chronic renal insufficiency, history of breast cancer, anemia, protein-calorie malnutrition. RECOMMENDATIONS: Continue dialysis as per bottom brusher. Continue broad-spectrum antibiotic. Continue noninvasive ventilator and increased nutritional support. Continue beta-etta ____ support will follow with you. Continue p.r.n. verapamil 2.5 every 6 hours for heart rate more than 130. We will follow with you. CVS status is stable. Overall, the patient's condition is critical, halfway prognosis at the best is guarded, but CVS status is relatively stable, holding. Discussed with the family. Thank you Dr. Inman for providing us the opportunity in taking care of the patient Yumiko Ramirez. Bibi Welsh MD
[2018-09-26] MEDS: Prostat 15 g packet GT SCH (15:56)
--- NOTE | 2018-09-26 16:10 | PN ---
DATE: 09/26/2018 SUBJECTIVE: The patient is 78-year-old, seem to be more awake and alert and received hemodialysis yesterday. Currently on 50% of high flow oxygen. She is awake, alert and able to communicate. Started to eat some. PHYSICAL EXAMINATION: VITAL SIGNS: She is afebrile. Pulse 77, respiration 20 and blood pressure 100/52. LUNGS: Bilateral fair airflow. No rhonchi or crackle. Soft crackle at bases posteriorly. HEART: S1 and S2, audible. ABDOMEN: Soft and nontender. No rebound. No guarding. NEUROLOGIC: The patient is awake, alert and able to communicate. Generalized weakness. She has sacral decubitus. She has right heel ulcer. LABORATORY DATA: WBC 15.2, hemoglobin 8.8, hematocrit 28.3 and platelet of 90. Chemistry; sodium 136, potassium 3.6, chloride 100, CO2 of 31, BUN 27, creatinine 2.2 and blood sugar 61. ASSESSMENT: 1. Chronic obstructive pulmonary disease, exacerbation. 2. Bilateral pneumonia. 3. Hyperlipidemia. 4. History of breast cancer. 5. Acute renal failure, currently on hemodialysis. PLAN: The patient is clinically stable. We will continue her on nebulizer treatment. We will continue her on dialysis treatment as recommended by Nephrology. Continue her on doxycycline. She is on DVT prophylaxis. She is on meropenem. We will monitor her electrolyte, CBC and CMP in a.m. We will followup the patient in a.m. Charla Inman MD
--- NOTE | 2018-09-26 17:16 | CP.PCM.PCO ---
Physician Communication Note - Physician Communication Note Physician Communication Note: patient per pulm, and nephro cleared for DC to ltach when bed avail.,j luis PMD
--- NOTE | 2018-09-26 19:31 | US ---
PROCEDURE: Lower extremity JOSEPH exam HISTORY: Peripheral vascular disease with pain and heel ulcer. Previous smoker. PHYSICIAN(S): Dallas Denise MD. FINDINGS: The resting JOSEPH's are normal: right, 1.07and left, 1.08. The brachial systolic pressures are symmetric. The low thigh pressures and waveforms are relatively normal. The calf PVR waveforms augment normally. No significant gradients are noted across the thighs. The left ankle and metatarsal waveforms are normal. The right ankle and metatarsal waveforms are mildly blunted. This could represent right tibial occlusive disease. IMPRESSION: 1. Normal resting ABIs. 2. Possible right tibial occlusive disease
[2018-09-26] MEDS: Sildenafil 20 MG TAB PO SCH (21:00)
[2018-09-27] MEDS: Albuterol-Ipratrop 3 mg / 0.5 (3 ml) UD IH SCH ×4 (03:24→19:53)
[2018-09-27 06:05] LABS: HEMOGLOBIN 7.5 g/dL (12.0-16.0); LYMPH # 0.1 (1.2-3.4); LYMPH % 1.9 % (22.0-35.0); MEAN CELL VOLUME 93.1 fl (80.0-105.0); MEAN CORPUSCULAR HEMOGLOBIN 28.7 pg (25.0-35.0); MEAN CORPUSCULAR HGB CONC 30.9 g/dl (31.0-37.0); MONO # 0.1 (0.1-0.6); MONO % 1.6 % (1.0-6.0); PLATELET COUNT 68 10^3/uL (120.0-450.0); RBC 2.61 10^6/uL (3.5-6.1); RED CELL DISTRIBUTION WIDTH 17.7 % (11.5-14.5); WHITE BLOOD COUNT 6.8 10^3/uL (4.5-11.0)
[2018-09-27 07:02] LABS: CALCIUM 8.2 mg/dL (8.4-10.5)
[2018-09-27] MEDS: Arformoterol 15 mcg/2 ml Inh Sol IH SCH ×2 (07:47→19:53)
[2018-09-27] MEDS: Budesonide 0.5 mg/2 ml Inhal Susp UD IH SCH ×2 (07:48→19:53)
--- NOTE | 2018-09-27 08:27 | RAD ---
Date of service: 09/27/2018 HISTORY: f/u COMPARISON: Portable chest 09/26/2018 6:42 a.m.. FINDINGS: LUNGS: Permanent left central venous dialysis catheter unchanged in position as well as right MediPort. Left lower lobe infiltrate unchanged with subtle patchy density the bilateral perihilar regions again evident. PLEURA: No right pleural effusion or pneumothorax bilaterally. Left pleural effusion likely unchanged. CARDIOVASCULAR: Calcific atherosclerotic changes are seen related to the thoracic aorta. Cardiac silhouette is stable. No pulmonary vascular congestion. OSSEOUS STRUCTURES: Post vertebroplasty changes again are again seen the mid thoracic spine. VISUALIZED UPPER ABDOMEN: Normal. OTHER FINDINGS: None. IMPRESSION: No interval change in left lower lobe infiltrate and probable left pleural effusion with limited hazy density at the bilateral perihilar regions unchanged as well.
[2018-09-27] MEDS: Sildenafil 20 MG TAB PO SCH ×2 (09:53→17:09)
[2018-09-27] MEDS: POLYETHYLENE GLYCOL 3350 17 GM/Dose PACKET PO SCH ×2 (09:53→17:06)
[2018-09-27] MEDS: Cefepime 1gm in NS 100ml 1 GM/100 ML BAG IVPB SCH (09:53)
[2018-09-27] MEDS: MethylPREDNISolone 40 mg Vial IVP SCH ×2 (09:54→21:46)
[2018-09-27] MEDS: Lidocaine 2% Jelly (30 ml) TOP SCH (10:12)
[2018-09-27] MEDS: Mupirocin 2% Ointment 15 GM TUBE TOP SCH (10:14)
[2018-09-27] MEDS: Silver Sulfadiazine 1% Cream (25 gm) TP SCH (10:14)
[2018-09-27] MEDS: Prostat 15 g packet GT SCH ×2 (10:18→17:06)
--- NOTE | 2018-09-27 10:20 | PN ---
DATE: 09/27/2018 PULMONARY PROGRESS NOTE SUBJECTIVE: The patient appears more comfortable this morning. She is on high-flow oxygen. She is awake and alert. She is aware of her surroundings. We were able to have a short conversation. She indicates her ability to communicate. She is being monitored by her [id number] from [place], [place]. We have not met previously. We have discussed the patient's case and she is aware of her findings. It is wonderful that the family members sit at the patient's bedside to help pursue this very difficult period. OBJECTIVE FINDINGS: VITAL SIGNS: Remain stable. The patient is afebrile. Her heart rate is 80, respiratory rate 16 to 18, blood pressure 120/70, O2 saturation on high-flow oxygen is 94%. HEENT: Normocephalic, atraumatic. NECK: Supple. No JVD. No bruit. No mass. CARDIOVASCULAR: Regular rhythm. S1, S2. No gallop appreciated. There remains a systolic ejection murmur. LUNGS: Global decrease in breath sounds with rhonchi at both bases, mainly on the left. No wheezing is appreciated. ABDOMEN: Soft. Bowel sounds normoactive without mass, guarding, rebound, or organomegaly. EXTREMITIES: Reveal edema. The patient has compression devices on her legs. SKIN: Severe ecchymoses with sacral decubiti. NEUROLOGIC: No focal findings that we can evaluate today. PERTINENT LABORATORY DATA: Chest x-ray done this morning shows the same pulmonary vascular congestion and pulmonary infiltrate, consistent with pneumonitis unchanged. CLINICAL IMPRESSION: 1. Pneumonitis. 2. Septicemia. 3. Severe sacral decubiti with ulcerations. 4. Significant congestive heart failure. 5. Advanced chronic obstructive pulmonary disease. 6. Pulmonary hypertension. 7. Breast cancer. 8. Severe peripheral vascular disease. PLAN: Continue vigorous supportive care, make the patient as comfortable as possible. We will discuss this case with the patient's primary doctor, Dr. Rafa Serra. We have discussed the case at length with the patient's daughter. They are aware of her problems and have been at her bedside. We will continue to follow her closely. Her status is slightly better today. This is a hopeful sign although the long-term prognosis still remains very regarded. We will follow closely and attempt to tweak medications appropriately to get the best results. Thank you for the opportunity to see my dear friend Marcia again. Davide Mendosa MD
--- NOTE | 2018-09-27 12:35 | PCM.PROC ---
Procedures Attestation:: I certify that I have explained the specified Operation(s) or Procedure(s), risks, benefits and reasonable alternatives to the Patient and/or other person responsible. The opportunity was given to ask questions and all questions answered - Dressing Care Location #1 Debridment Necessary: Yes (all necrotic eschar 4 * 4 cm) Dressing Type: Silver Sulfadiazine Neurovascular Qualities Intact: Yes Patient Tolerated Procedure: well Additional Comments: Done at bedside. Patient tolerated well. Dressed with lidocaine and silvadene. Family at bedside.
--- NOTE | 2018-09-27 13:26 | PN ---
DATE: 09/27/2018 REASON FOR CONSULTATION AND FOLLOWUP: Cardiac evaluation, respiratory insufficiency, multiorgan dysfunction, acute kidney injury, started on dialysis, now on high-flow oxygen moved to telemetry. Daughter is at the bedside. PHYSICAL EXAMINATION: As follows: GENERAL: The patient is awake and alert, getting dressing change in the right from earlier where the patient had a previous dialysis catheter which is changed to the left pectoral region. Not in apparent distress. VITAL SIGNS: Temperature afebrile, heart rate 72, blood pressure 115/54. HEENT: PERRLA. Extraocular muscles intact. NECK: Supple. No carotid bruit. No thyromegaly. CHEST: Clear to auscultation. HEART: S1 and S2 regular. ABDOMEN: Soft. EXTREMITIES: Clubbing and cyanosis negative. LABORATORY DATA: Blood workup as follows. WBC 6.8, hemoglobin 7.5, hematocrit 24.3, platelet count 68. Chemistry shows sodium 135, potassium 4, chloride 100, carbon dioxide 31, anion gap of 9, BUN 42 and creatinine 2.9. IMPRESSION: A 78-year-old female with a past medical history significant for coronary artery disease status post coronary artery bypass admitted with multilobar pneumonia and acute kidney injury, started on dialysis, status post packed red blood cells transfusion. Initially, the patient was a Do Not Resuscitate/Do Not Intubate, but now family reverted, now the patient's full code. Yesterday, the dialysis catheter clogged. New dialysis catheter to the left side of the chest; possibly dialysis today. Has recent echocardiography done that shows ejection fraction of about 60%, mild to moderate tricuspid regurgitation and right ventricular systolic pressure of 57. The patient has recently had a right heart catheterization done because of the pulmonary hypertension that revealed upper limit of normal right heart except pulmonary vascular resistance has increased. RECOMMENDATIONS: Continue antibiotics. Continue noninvasive ventilator. Continue dialysis. Continue using support overall. The patient's condition is critical, long-term prognosis is guarded. We will follow with you. Bibi Welsh MD
--- NOTE | 2018-09-27 13:37 | CP.PCM.PN ---
Subjective - Date & Time of Evaluation Date of Evaluation: 09/27/18 Time of Evaluation: 13:33 - Subjective Subjective: Podiatry Progress Note for Dr. Morrison 78 y/o F patient seen and evaluated at bedside with posterior right heel wound. Patient moved from ICU. As per her chart there was no overnight nausea/vomiting/fever. There are no other pedal complaints at this time. Discussed with patient daughter that the patient will need 4 weeks of IV Abx for the possibility of OM as she is having bone marrow edema in the calcaneous bone underneath the ulcer. Objective - Vital Signs/Intake and Output Vital Signs (last 24 hours): Temp Pulse Resp BP Pulse Ox 98.9 F 83 17 115/54 L 100 09/27/18 04:00 09/27/18 10:00 09/27/18 10:49 09/27/18 04:59 09/27/18 05:00 - Medications Medications: Current Medications Albuterol/Ipratropium (Duoneb 3 Mg/0.5 Mg (3 Ml) Ud) 3 ml IH Q1H PRN PRN Reason: Shortness of Breath Last Admin: 09/26/18 04:49 Dose: 3 ml Albuterol/Ipratropium (Duoneb 3 Mg/0.5 Mg (3 Ml) Ud) 3 ml IH [id number] [facility] Last Admin: 09/27/18 07:48 Dose: 3 ml Amino Acid Protein (Prostat 15 G Packet) 15 gm GT BID [facility] Last Admin: 09/27/18 10:18 Dose: 15 gm Arformoterol Tartrate (Brovana) 15 mcg IH [id number] [facility] Last Admin: 09/27/18 07:47 Dose: 15 mcg Aspirin (Ecotrin) 81 mg PO DAILY [facility] Last Admin: 09/27/18 09:54 Dose: 81 mg Atorvastatin Calcium (Lipitor) 20 mg PO DIN [facility] Last Admin: 09/26/18 20:59 Dose: 20 mg Budesonide (Pulmicort Respules) 0.5 mg IH [id number] [facility] Last Admin: 09/27/18 07:48 Dose: 0.5 mg Diphenhydramine HCl (Benadryl) 25 mg IVP HS PRN PRN Reason: Insomnia Last Admin: 09/23/18 20:11 Dose: 25 mg Doxycycline Hyclate (Doryx) 100 mg PO Q12 [facility]; Protocol Last Admin: 09/27/18 09:53 Dose: 100 mg Escitalopram Oxalate (Lexapro) 10 mg PO DAILY [facility] Last Admin: 09/27/18 09:53 Dose: 10 mg Famotidine (Pepcid) 20 mg PO HS [facility] Last Admin: 09/26/18 20:59 Dose: 20 mg Heparin Sodium (Porcine) (Heparin) 5,000 units SC Q12 [facility]; Protocol Last Admin: 09/27/18 10:16 Dose: Not Given Cefepime HCl (Maxipime 1gm) 1 gm in 100 mls @ 100 mls/hr IVPB Q24H [facility]; Protocol Last Admin: 09/27/18 09:53 Dose: 100 mls/hr Lidocaine HCl (Xylocaine 2%) 1 ea TOP DAILY [facility] Last Admin: 09/27/18 10:12 Dose: 1 applic Methylprednisolone (Solu-Medrol) 30 mg IVP Q12 [facility] Last Admin: 09/27/18 09:54 Dose: 30 mg Metoprolol Tartrate (Lopressor) 25 mg PO BID [facility] Last Admin: 09/27/18 10:15 Dose: Not Given Montelukast Sodium (Singulair) 10 mg PO HS [facility] Last Admin: 09/26/18 20:59 Dose: 10 mg Mupirocin (Bactroban Ointment) 0 gm TOP DAILY [facility] Stop: 09/29/18 10:01 Last Admin: 09/27/18 10:14 Dose: 1 applic Ondansetron HCl (Zofran Inj) 4 mg IVP Q6H PRN PRN Reason: Nausea/Vomiting Last Admin: 09/24/18 11:39 Dose: 4 mg Pantoprazole Sodium (Protonix Inj) 40 mg IVP DAILY [facility] Last Admin: 09/27/18 09:53 Dose: 40 mg Polyethylene Glycol (Miralax) 17 gm PO BID [facility] Last Admin: 09/27/18 09:53 Dose: 17 gm Pregabalin (Lyrica) 50 mg PO HS [facility] Last Admin: 09/26/18 20:59 Dose: 50 mg Sildenafil Citrate (Revatio) 20 mg PO BID [facility] Last Admin: 09/27/18 09:53 Dose: 20 mg Silver Sulfadiazine (Silvadene 1% 25 Gm) 0 gm TP DAILY [facility] Last Admin: 09/27/18 10:14 Dose: 25 gm Verapamil HCl (Verapamil Inj) 2.5 mg IVP Q6H PRN PRN Reason: For heart rate >120 - Labs Labs: 09/27/18 05:30 09/27/18 05:30 - Head Exam Head Exam: ATRAUMATIC - Extremities Exam Additional comments: RLE focused exam: Vasc: DP/PT pulses fully palpable 2/4 b/l. Skin temperature gradient warm to warm from proximal to distal. Cap refill < 3 seconds to all digits b/l. No edema noted b/l Neuro: Gross and protective sensation grossly intact b/l. Derm: Posterior right heel ulceration measuring 1.9 cm X 1.3 cm with 10% fibrotic and 90% granular base, superficial, negative probe to bone, mild isabel- wound erythema, positive mild serous drainage, Slight maceration. No other open lesions, wounds, xerosis, abnormal pigmentation or abnormal growths noted b/l. Erythema noted over her right HAV medial eminence. MSK: B/l HAV deformities noted. No other gross deformities noted. ROM WNL to all major joints b/l. MMT 5/5 in all major muscle groups b/l. - Neurological Exam Neurological Exam: Awake Assessment and Plan - Assessment and Plan (Free Text) Assessment: 78 y/o F patient with posterior right heel decubitous ulceration. Plan: Patient seen and evaluated Discussed with attending Dr. Morrison Charts, labs and vitals reviewed; Afebrile, WBCs 6.8 Wound Culture: Coag neg staph Right Heel X-ray: no signs of OM R MRI: bone marrow edema in calcaneus without evidence of cortical destruction or erosion likely represent bone marrow reaction, possibility of OM less likely. JOSEPH/PVR: Normal resting JOSEPH with possible R tibial occlusive disease. ordered ESR/CRP New wound cultures collected and sent to the lab. Discussed with patient daughter that the patient will be on IV Abx for for 4 weeks for the possibility of OM as she is having bone marrow edema in the calcaneous bone underneath the ulcer. Patient daughter expressed verbal understanding. Patient to wear Multipodus boots at all times while in bed ID consulted; Reccs appreciated. Continue IV abx as per ID Right heel wound and R 1st MPJ dressed with Mepilex. Podiatry will continue to follow up patient while in house. Pending patient transfer to extended care facility
--- NOTE | 2018-09-27 14:53 | PN ---
DATE: 09/27/2018 SUBJECTIVE: The patient is seen in the dialysis unit. She is lethargic, on high-flow oxygen. She does not appear to be in any kind of distress. OBJECTIVE: VITAL SIGNS: Blood pressure 115/54, heart rate 84, respiratory rate 18-20, temperature 98.9. HEENT: Normocephalic, atraumatic, positive pallor. NECK: Supple, no JVD. LUNGS: Bilateral equal entry. Bilateral rhonchi, crackles left chest field. CARDIAC: S1 and S2, regular rate and rhythm, no murmur, no rub. ABDOMEN: Obese, distended, soft, nontender, bowel sounds present. EXTREMITIES: No lower extremity edema. LABORATORY DATA: WBC 6.8, hemoglobin 7.5, hematocrit 24, platelets 68. Sodium 135, potassium 4.1, chloride 100, CO2 of 31, BUN 42, creatinine 2.9, glucose 85, calcium 8.2, phosphorus 4.8, magnesium 1.8, saturation 21%, iron 31, ferritin 890, AST 38, ALT 35, albumin 2.0, corrected calcium is 9.7. CURRENT MEDICATIONS: Bactroban, Benadryl, Brovana, doxycycline 100 q. 12, DuoNeb, aspirin, heparin, Lexapro, Lopressor 25 b.i.d., Lyrica, cefepime 1 g daily, Pepcid, Pro-Stat, Protonix, Pulmicort, 20 b.i.d., Singulair, Solu-Medrol, verapamil, Xylocaine, Zofran, meropenem 250 q. 12 discontinued yesterday. ASSESSMENT: 1. Acute kidney injury, oligoanuric now. 2. Respiratory failure. 3. Multilobar pneumonia. 4. Chronic obstructive pulmonary disease. 5. Pulmonary hypertension. 6. Breast cancer. 7. Severe anemia. 8. Severe sacral decubiti with ulcerations. PLAN: 1. Transfuse 2 units of PRBC in dialysis today. 2. Will likely need dialysis at least for the short-term. 3. Overall prognosis is grim. 4.. Continue antibiotics as per ID recommendations. Mayelin Paul MD
--- NOTE | 2018-09-27 23:23 | PN ---
DATE: 09/27/2018 SUBJECTIVE: The patient is a 78-year-old female, seen in Nephrology Department, getting hemodialysis. She is sleepy but arousable with mild shortness of breath. No nausea, vomiting. No diarrhea. Oral intake is poor. PHYSICAL EXAMINATION: VITAL SIGNS: She is afebrile. Pulses of 122, respirations 20, blood pressure 107/69. LUNGS: Bilateral fair air flow. No rhonchi or crackles. HEART: S1, S2 audible. ABDOMEN: Soft, nontender. No rebound. No guarding. NEUROLOGIC: The patient is sleepy but arousable. EXTREMITIES: Bilateral leg no edema. She has sacral decubitus. She has right heel ulcer. LABORATORY DATA: WBC 6.8, hemoglobin 7.5, hematocrit 24.3, platelets 68. Chemistry; sodium 135, potassium 4.1, chloride 100. BUN 42, creatinine 2.9, blood sugar of 85. ASSESSMENT: 1. Bilateral pneumonia, improving. 2. Acute renal failure, currently on dialysis. 3. Status post metabolic encephalopathy. 4. Left lower lobe infiltrate. 5. Chronic obstructive pulmonary disease. PLAN: Currently, the patient is on Brovana. She is on doxycycline. She is getting nebulizer treatment. She is on DVT prophylaxis. She is on cefepime. She is on IV steroid. We will continue all of these medications. She will receive 2 units of packed rbc's during dialysis. Followup with CBC and CMP. The patient remains stable. Plan is for LTAC, she has been accepted. We will follow the patient in the a.m. and make disposition plan. Charla Inman MD
[2018-09-28] MEDS: Albuterol-Ipratrop 3 mg / 0.5 (3 ml) UD IH SCH ×5 (02:15→19:57)
[2018-09-28 05:39] VITALS: O2SAT 97
[2018-09-28 07:16] LABS: LYMPH # 0.2 (1.2-3.4); LYMPH % 2.6 % (22.0-35.0); MEAN CELL VOLUME 88.5 fl (80.0-105.0); MEAN CORPUSCULAR HEMOGLOBIN 28.3 pg (25.0-35.0); MONO # 0.2 (0.1-0.6); MONO % 2.1 % (1.0-6.0); PLATELET COUNT 84 10^3/uL (120.0-450.0); RBC 3.82 10^6/uL (3.5-6.1); RED CELL DISTRIBUTION WIDTH 19.2 % (11.5-14.5)
[2018-09-28 07:42] LABS: ALBUMIN 2.4 g/dL (3.0-4.8); CALCIUM 8.5 mg/dL (8.4-10.5)
[2018-09-28] MEDS: Arformoterol 15 mcg/2 ml Inh Sol IH SCH ×2 (08:09→19:57)
[2018-09-28] MEDS: Budesonide 0.5 mg/2 ml Inhal Susp UD IH SCH ×2 (08:10→19:57)
[2018-09-28 08:19] LABS: HEMOGLOBIN 10.8 g/dL (12.0-16.0); WHITE BLOOD COUNT 9.1 10^3/uL (4.5-11.0)
--- NOTE | 2018-09-28 08:23 | CP.PCM.PN ---
Subjective - Date & Time of Evaluation Date of Evaluation: 09/28/18 Time of Evaluation: 06:30 - Subjective Subjective: No distress, on high flow oxygen, daughter at bedside Reason for consultation and follow up:Cardiac evaluation of shortness of breath, history of coronary artery disease, post CABG, COPD Seen and examined by me and Dr. Welsh Objective - Vital Signs/Intake and Output Vital Signs (last 24 hours): Temp Pulse Resp BP Pulse Ox 97.9 F 76 20 141/70 97 09/28/18 05:37 09/28/18 05:37 09/28/18 05:37 09/28/18 05:37 09/28/18 05:37 Intake and Output: 09/28/18 09/28/18 06:59 18:59 Intake Total 1530 Output Total 320 Balance 1210 - Medications Medications: Current Medications Albuterol/Ipratropium (Duoneb 3 Mg/0.5 Mg (3 Ml) Ud) 3 ml IH Q1H PRN PRN Reason: Shortness of Breath Last Admin: 09/26/18 04:49 Dose: 3 ml Albuterol/Ipratropium (Duoneb 3 Mg/0.5 Mg (3 Ml) Ud) 3 ml IH [id number] [facility] Last Admin: 09/28/18 08:10 Dose: 3 ml Amino Acid Protein (Prostat 15 G Packet) 15 gm GT BID [facility] Last Admin: 09/27/18 17:06 Dose: 15 gm Arformoterol Tartrate (Brovana) 15 mcg IH [id number] [facility] Last Admin: 09/28/18 08:09 Dose: 15 mcg Aspirin (Ecotrin) 81 mg PO DAILY [facility] Last Admin: 09/27/18 09:54 Dose: 81 mg Atorvastatin Calcium (Lipitor) 20 mg PO DIN [facility] Last Admin: 09/27/18 17:06 Dose: 20 mg Budesonide (Pulmicort Respules) 0.5 mg IH [id number] [facility] Last Admin: 09/28/18 08:10 Dose: 0.5 mg Diphenhydramine HCl (Benadryl) 25 mg IVP HS PRN PRN Reason: Insomnia Last Admin: 09/23/18 20:11 Dose: 25 mg Doxycycline Hyclate (Doryx) 100 mg PO Q12 [facility]; Protocol Last Admin: 09/27/18 21:47 Dose: 100 mg Escitalopram Oxalate (Lexapro) 10 mg PO DAILY [facility] Last Admin: 09/27/18 09:53 Dose: 10 mg Famotidine (Pepcid) 20 mg PO HS [facility] Last Admin: 09/27/18 21:47 Dose: 20 mg Heparin Sodium (Porcine) (Heparin) 5,000 units SC Q12 [facility]; Protocol Last Admin: 09/27/18 21:46 Dose: 5,000 units Cefepime HCl (Maxipime 1gm) 1 gm in 100 mls @ 100 mls/hr IVPB Q24H [facility]; Protocol Last Admin: 09/27/18 09:53 Dose: 100 mls/hr Lidocaine HCl (Xylocaine 2%) 1 ea TOP DAILY [facility] Last Admin: 09/27/18 10:12 Dose: 1 applic Methylprednisolone (Solu-Medrol) 30 mg IVP Q12 [facility] Last Admin: 09/27/18 21:46 Dose: 30 mg Metoprolol Tartrate (Lopressor) 25 mg PO BID [facility] Last Admin: 09/27/18 17:05 Dose: 25 mg Montelukast Sodium (Singulair) 10 mg PO HS [facility] Last Admin: 09/27/18 21:47 Dose: 10 mg Mupirocin (Bactroban Ointment) 0 gm TOP DAILY [facility] Stop: 09/29/18 10:01 Last Admin: 09/27/18 10:14 Dose: 1 applic Ondansetron HCl (Zofran Inj) 4 mg IVP Q6H PRN PRN Reason: Nausea/Vomiting Last Admin: 09/24/18 11:39 Dose: 4 mg Pantoprazole Sodium (Protonix Inj) 40 mg IVP DAILY [facility] Last Admin: 09/27/18 09:53 Dose: 40 mg Polyethylene Glycol (Miralax) 17 gm PO BID [facility] Last Admin: 09/27/18 17:06 Dose: 17 gm Pregabalin (Lyrica) 50 mg PO HS [facility] Last Admin: 09/27/18 21:47 Dose: 50 mg Sildenafil Citrate (Revatio) 20 mg PO BID [facility] Last Admin: 09/27/18 17:09 Dose: 20 mg Silver Sulfadiazine (Silvadene 1% 25 Gm) 0 gm TP DAILY [facility] Last Admin: 09/27/18 10:14 Dose: 25 gm Verapamil HCl (Verapamil Inj) 2.5 mg IVP Q6H PRN PRN Reason: For heart rate >120 - Labs Labs: 09/28/18 06:40 09/28/18 06:40 - Constitutional Appears: Non-toxic, No Acute Distress - ENT Exam ENT Exam: Mucous Membranes Dry - Respiratory Exam Respiratory Exam: Decreased Breath Sounds, Clear to Ausculation Bilateral, NORMAL BREATHING PATTERN - Cardiovascular Exam Cardiovascular Exam: REGULAR RHYTHM, +S1, +S2 Additional comments: left chest permacath Right chest port - GI/Abdominal Exam GI & Abdominal Exam: Soft, Normal Bowel Sounds - Exam Additional comments: cole catheter - Extremities Exam Additional comments: right heel wound - Neurological Exam Neurological Exam: Alert, Awake - Psychiatric Exam Psychiatric exam: Normal Affect - Skin Skin Exam: Dry, Normal Color, Warm Additional comments: sacral wound Assessment and Plan - Assessment and Plan (Free Text) Assessment: A 78 year old female who was brought to the ER by daughter from assisted due to shortness of breath. History of coronary artery disease post coronary artery bypass grafting x 3 on 2012, COPD, degenerative joint disease, history of fall T5 compression fracture, metastatic breast cancer,on chemotherapy, partial colectomy, hypertension, chronic renal insufficiency,sacral decubitus, GERD, peripheral neuropathy, anxiety. Echo done on 07/03/18 showed LVEF 55-60%, moderate AR, mild to moderate MR/TR, trace pulmonic valve regurgitation, RVSP 57 mmHg. Right heart cath done on 07/06/18 and showed pulmonary vascular resistance of 6 Wood units. Primary pulmonary hypertension with normal wedge. Admitted in ICU and placed on BIPAP for bilateral pneumonia, congestive heart failure, and acute kidney injury requiring hemodialysis. Stabilized in ICU and now transferred to telemetry on high flow oxygen. Full code. DNR rescinded by family. Post blood transfusion of PRBC for low H/H. No invasive cardiac work up this time. Will treat medically. Plan: No distress, daughter at bedside Awake and responds to verbal commands Heart rate controlled Blood pressure controlled On ASA 81 mg daily,Lipitor 20 mg daily,Heparin SQ 5000 units every 12 hours, Solumedrol 30 mg every 12 hours, Lopressor 25 mg BID Post transfusion of PRBC, H/H stable Hemodialysis per renal Continue current medications Continue current treatment Continue IV antibiotics per ID Nutritional support Discharge planning Cleared from cardiac standpoint to LTACH Will follow up Plan and treatment discussed with Dr. Welsh
[2018-09-28 09:11] LABS: ERYTHROCYTE SEDIMENTATION RATE 6 mm/hr (0.0-20.0)
--- NOTE | 2018-09-28 09:18 | RAD ---
Date of service: 09/28/2018 HISTORY: f/u COMPARISON: Portable chest 09/27/2018. FINDINGS: LUNGS: MediPort and dialysis catheter unchanged in position. Sternotomy wires again evident. Vertebroplasty again seen at the upper to midthoracic spine. Persistent left basilar atelectasis or infiltrate as well as at the mid right lung zone. Left basilar airspace disease likely improved somewhat. Underlying chronic interstitial pulmonary disease reiterated. PLEURA: Small pleural effusion not excluded. None is seen at the left. No pneumothorax bilaterally. CARDIOVASCULAR: Calcific atherosclerotic changes are seen related to the thoracic aorta. Normal cardiac size. No pulmonary vascular congestion. OSSEOUS STRUCTURES: No significant abnormalities. VISUALIZED UPPER ABDOMEN: Normal. OTHER FINDINGS: None. IMPRESSION: Left basilar airspace disease likely improved somewhat. Right sided pulmonary infiltrates noted with no interval change as discussed above. Trace left pleural effusion not excluded.
[2018-09-28] MEDS: Cefepime 1gm in NS 100ml 1 GM/100 ML BAG IVPB SCH (09:28)
[2018-09-28] MEDS: MethylPREDNISolone 40 mg Vial IVP SCH (09:29)
[2018-09-28] MEDS: Sildenafil 20 MG TAB PO SCH ×2 (09:30→18:04)
[2018-09-28] MEDS: Lidocaine 2% Jelly (30 ml) TOP SCH (09:38)
[2018-09-28] MEDS: Silver Sulfadiazine 1% Cream (25 gm) TP SCH (09:39)
[2018-09-28] MEDS: Mupirocin 2% Ointment 15 GM TUBE TOP SCH (09:39)
[2018-09-28] MEDS: POLYETHYLENE GLYCOL 3350 17 GM/Dose PACKET PO SCH ×2 (09:40→18:04)
[2018-09-28] MEDS: Prostat 15 g packet GT SCH ×2 (09:40→18:03)
--- NOTE | 2018-09-28 12:30 | CP.PCM.PN ---
Subjective - Date & Time of Evaluation Date of Evaluation: 09/27/18 Time of Evaluation: 08:45 - Subjective Subjective: Still on high flow oxygen, no fevers overnight, still feels weak. Objective - Vital Signs/Intake and Output Vital Signs (last 24 hours): Temp Pulse Resp BP Pulse Ox 97.2 F L 77 20 100/52 L 91 L 09/26/18 04:30 09/26/18 12:44 09/26/18 12:44 09/26/18 12:44 09/26/18 12:44 Intake and Output: 09/26/18 09/26/18 06:59 18:59 Intake Total 160 Output Total 75 Balance 85 - Medications Medications: Current Medications Albuterol/Ipratropium (Duoneb 3 Mg/0.5 Mg (3 Ml) Ud) 3 ml IH Q1H PRN PRN Reason: Shortness of Breath Last Admin: 09/26/18 04:49 Dose: 3 ml Albuterol/Ipratropium (Duoneb 3 Mg/0.5 Mg (3 Ml) Ud) 3 ml IH [id number] [facility] Last Admin: 09/26/18 13:06 Dose: 3 ml Amino Acid Protein (Prostat 15 G Packet) 15 gm GT BID [facility] Last Admin: 09/25/18 17:53 Dose: Not Given Arformoterol Tartrate (Brovana) 15 mcg IH [id number] [facility] Last Admin: 09/26/18 07:09 Dose: 15 mcg Aspirin (Ecotrin) 81 mg PO DAILY [facility] Last Admin: 09/26/18 10:46 Dose: 81 mg Atorvastatin Calcium (Lipitor) 20 mg PO DIN [facility] Last Admin: 09/25/18 17:52 Dose: 20 mg Budesonide (Pulmicort Respules) 0.5 mg IH [id number] [facility] Last Admin: 09/26/18 07:10 Dose: 0.5 mg Diphenhydramine HCl (Benadryl) 25 mg IVP HS PRN PRN Reason: Insomnia Last Admin: 09/23/18 20:11 Dose: 25 mg Doxycycline Hyclate (Doryx) 100 mg PO Q12 [facility]; Protocol Last Admin: 09/26/18 10:45 Dose: 100 mg Escitalopram Oxalate (Lexapro) 10 mg PO DAILY [facility] Last Admin: 09/26/18 10:44 Dose: 10 mg Famotidine (Pepcid) 20 mg PO HS [facility] Last Admin: 09/25/18 21:41 Dose: 20 mg Heparin Sodium (Porcine) (Heparin) 5,000 units SC Q12 [facility]; Protocol Last Admin: 09/25/18 22:14 Dose: 5,000 units Meropenem 250 mg/ Sodium (Chloride) 100 mls @ 100 mls/hr IVPB Q12H [facility]; Protocol Stop: 09/27/18 06:16 Last Admin: 09/26/18 05:19 Dose: 100 mls/hr Lidocaine HCl (Xylocaine 2%) 1 ea TOP DAILY [facility] Last Admin: 09/25/18 17:59 Dose: 1 applic Methylprednisolone (Solu-Medrol) 30 mg IVP Q12 [facility] Metoprolol Tartrate (Lopressor) 25 mg PO BID [facility] Last Admin: 09/26/18 10:45 Dose: 25 mg Montelukast Sodium (Singulair) 10 mg PO HS [facility] Last Admin: 09/25/18 22:13 Dose: 10 mg Mupirocin (Bactroban Ointment) 0 gm TOP DAILY [facility] Stop: 09/29/18 10:01 Last Admin: 09/25/18 08:00 Dose: 1 applic Ondansetron HCl (Zofran Inj) 4 mg IVP Q6H PRN PRN Reason: Nausea/Vomiting Last Admin: 09/24/18 11:39 Dose: 4 mg Pantoprazole Sodium (Protonix Inj) 40 mg IVP DAILY [facility] Last Admin: 09/25/18 09:33 Dose: 40 mg Polyethylene Glycol (Miralax) 17 gm PO BID [facility] Last Admin: 09/25/18 18:02 Dose: Not Given Pregabalin (Lyrica) 50 mg PO HS [facility] Last Admin: 09/25/18 22:13 Dose: 50 mg Sildenafil Citrate (Revatio) 20 mg PO BID [facility] Last Admin: 09/25/18 17:52 Dose: 20 mg Silver Sulfadiazine (Silvadene 1% 25 Gm) 0 gm TP DAILY [facility] Last Admin: 09/25/18 10:00 Dose: Not Given Verapamil HCl (Verapamil Inj) 2.5 mg IVP Q6H PRN PRN Reason: For heart rate >120 - Labs Labs: 09/26/18 05:30 09/26/18 05:30 - Constitutional Appears: Chronically Ill - Head Exam Head Exam: NORMAL INSPECTION - Respiratory Exam Respiratory Exam: Decreased Breath Sounds - Cardiovascular Exam Cardiovascular Exam: +S1, +S2 - GI/Abdominal Exam GI & Abdominal Exam: Soft. absent: Tenderness - Extremities Exam Additional comments: right foot with dressings in place Assessment and Plan - Assessment and Plan (Free Text) Plan: Assessment consider right heel osteomyelitis S/P treatment for bilateral healthcare-associated pneumonia in this patient with respiratory failure probably combination of vascular congestion from worsening renal failure now on hemodialysis S/P UTI with E. coli, uncomplicated. probably cystitis thoracic vertebral compression fractures S/P kyphoplasty COPD chronic renal failure pulmonary HTN PVD GERD Plan we have switched to PO Doxycycline and Cefepime pending wound cx from the right heel taken by Dr. Morrison, which may determine which antibiotic to use will need weekly CBC, CMP, CRP while on antibiotics to be monitored by PMD - as per nurse practitioner Shelley Almendarez she is going to an LTAC and her platelet count should be monitored there closely and I have discussed with the nurse practitioner that this should be explicit in the discharge instructions, and that the blood work should also be monitored by the doctors at the LTAC discussed with Dr. Morrison - reviewed MRI of right foot from 09/15/2018 - should consider left calcaneal osteomyelitis and will plan for 4-6 weeks of antibiotics (from time of MRI which is 09/15/2018) overall prognosis is poor discussed with daughter at bedside - patient should also follow up with Podiatry as outpatient since treatment for osteomyelitis is antibiotics and wound care together and that healing is not guaranteed since osteomyelitis is complex
[2018-09-28 13:08] VITALS: RESP 18
--- NOTE | 2018-09-28 13:44 | PN ---
DATE: 09/28/2018 SUBJECTIVE: The patient remains awake and alert. She is comfortable. She is resting without dyspnea. She does have a hard time communicating. There are no relatives at the bedside this morning. OBJECTIVE: VITAL SIGNS: Remain stable. The patient remains afebrile 98.7, heart rate 80, respiratory rate 18, blood pressure 124/76, O2 sat high-flow oxygen 95%. HEENT: Normocephalic, atraumatic. NECK: Supple. No JVD. No bruits. No mass. CARDIOVASCULAR: Regular rhythm. S1, S2. No gallop appreciated. There remains a systolic ejection murmur as described above. LUNGS: Scattered rhonchi throughout both lung chaidez, equally left and right, compared to yesterday. No wheezing is appreciated. There are minor rales noted. ABDOMEN: Soft. Bowel sounds normoactive without mass, guarding, rebound or organomegaly. EXTREMITIES: Reveal edema which is unchanged. Compression devices unchanged. SKIN: Severe ecchymoses with sacral decubiti. NEUROLOGIC: No focal findings. The patient remains awake and alert. PERTINENT LABORATORY DATA: Chest x-ray done this morning shows continued pulmonary vascular congestion and infiltrates. This could be consistent with congestive heart failure, pneumonitis or lymphangitic spread. CLINICAL IMPRESSION: 1. Pneumonitis. 2. Septicemia. 3. Sacral decubiti ulcerations. 4. Severe congestive heart failure. 5. Chronic obstructive pulmonary disease - advanced. 6. Pulmonary hypertension. 7. Breast cancer. 8. Severe peripheral vascular disease. PLAN: Continue vigorous supportive care as described yesterday. We will discuss with PMD again. We will make an attempt to contact the patient's family later today to give them a status report The long-term prognosis remains extremely guarded. We will continue to make the patient as comfortable as possible in view of these findings. Thank you for the opportunity to care for this pamela patient. Davide Mendosa MD
[2018-09-28 18:10] VITALS: BP 152/72; PULSE 100; TEMP 97.1
--- NOTE | 2018-09-29 03:55 | DS ---
HISTORY OF PRESENT ILLNESS: The patient is 78 years old who was admitted on 09/13/2018, after she fell, she was having difficulty walking. The patient recently had kyphoplasty done, so intention was that she will go to [facility] for rehab, but she was found to have bilateral pneumonia. She was treated with IV antibiotic nebulizer treatment and steroid. Her oral intake was very poor. She developed COPD exacerbation along with congestive heart failure. Because of sepsis, she went into acute renal failure. The patient was transferred to ICU. She was started on dialysis. Remained on IV antibiotic. Different proposal consultant including ID, tool designer, biology manager, and senior systems analyst were seeing the patient, taking care of her wound also. Initially, family made her DNR, but later on, her rescinded DNR. She received her dialysis yesterday. During the stay, she had multiple blood transfusions and multiple episodes of dialysis. PHYSICAL EXAMINATION: GENERAL: Today, she is awake and alert, communicative. VITAL SIGNS: She is afebrile, pulse 76, respirations 20, and blood pressure 141/70. LUNGS: Bilateral fair airflow. No rhonchi or crackle. HEART: S1 and S2 audible. ABDOMEN: Soft and nontender. No rebound. No guarding. NEUROLOGIC: The patient is awake and alert, able to communicate. EXTREMITIES: Bilateral leg, +1 edema. She has generalized weakness. She was only able to stand up on her feet by the therapist. LABORATORY DATA: WBC is 9.1, hemoglobin 10.8, hematocrit 33.8, and platelet of 84. Chemistry; sodium 136, potassium 3.7, chloride 99, CO2 of 31, BUN 36, creatinine 2.3, blood sugar of 122. Blood culture and urine culture are negative. She has x-ray chest done this morning showed left basilar airspace disease likely that has improved. Right-sided pulmonary infiltrate noted with no interval change with left pleural effusion. ASSESSMENT: 1. Resolving bilateral pneumonia. 2. Acute renal failure, currently on dialysis. 3. History of carcinoma of breast. 4. History of hypertension. 5. Anemia, status post multiple blood transfusion. 6. Multiple fall with degenerative disc disease and status post multiple kyphoplasty. PLAN: The patient is going to be evaluated by LTAC in [facility] and if accepted will be transferred to LTAC today. Charla Inman MD [facility] # [id number]
--- NOTE | 2018-09-29 08:37 | PN ---
DATE: 09/28/2018 SUBJECTIVE: The patient is seen lying in bed. She is arousable, she is comfortable. She appears to be in mild respiratory distress. PHYSICAL EXAMINATION: GENERAL: An elderly lady lying in bed. VITAL SIGNS: Blood pressure 146/43, heart rate 75, respiratory rate 18-20, and temperature 97.7. HEENT: Normocephalic and atraumatic, positive pallor. NECK: Supple. No JVD. LUNGS: Bilateral rhonchi, coarse crackles left greater than right, equal expansion. CARDIAC: S1 and S2, regular rate and rhythm. No murmur, no rub. ABDOMEN: Obese, distended, soft, and nontender. Bowel sounds present. EXTREMITIES: No lower extremity edema. INTAKE AND OUTPUT: Not charted. LABORATORY DATA: WBC 9, hemoglobin 10.8, hematocrit 34, and platelets 84. Sodium 136, potassium 3.7, chloride 99, CO2 of 31, BUN 36, creatinine 2.3, and glucose 122. Wound culture, no growth. CURRENT MEDICATIONS: Brovana, doxycycline 100 mg every 12 hours, DuoNeb, aspirin, Lexapro, Lipitor, Lopressor 25 mg b.i.d., cefepime 1 g daily, MiraLax, Pepcid, Pro-Stat, Protonix, Revatio, Singulair, and Solu-Medrol. ASSESSMENT: 1. Acute kidney injury, superimposed on chronic kidney disease, stage III. 2. Respiratory failure/pneumonia. 3. Severe chronic obstructive pulmonary disease. 4. Stage IV breast cancer. 5. Severe anemia. 6. Coronary artery disease. 7. Infected sacral decubitus. PLAN: 1. Continue antibiotics. 2. Continue dialysis three times a week for the time being. 3. Venofer 100 mg IV piggyback once a week on dialysis. 4. Remains on high-flow oxygen. 5. Discharge planning . Mayelin Paul MD
[2018-10-05] MEDS ORDERED: Darbepoetin Alfa 40 mcg/ml Inj IVP SCH (10:00)
[2018-10-05] MEDS ORDERED: Iron Sucrose 100 mg/5 ml Inj IVP SCH (10:00)
--- NOTE | 2018-10-06 10:03 | PQF ---
PROVIDER RESPONSE TEXT: The hip ulcer was debrided at bedside with time out and consent accertained was noted to be 4x4 cm. I t was necrotic skin and subcut. Tissue. Debrided with lidocaine,scissors 11 blade and betadine. It wa s excisional. REVIEWER QUERY TEXT: Debridement Type Debridement is documented in the Medical Record. Please specify the type and extent of debridement to include the method and instruments used. Depth of tissue removed: Such as: -- Skin -- Subcutaneous tissue -- Fascia -- Muscle -- Bone -- Other, please specify The patient's Clinical Indicators include: 09/27 PN done by resident, Dr. Vikash Seals and co-signed by you, refers to a debridement procedure done at bedside. More specificity is required for this procedure including type (excisional or non-excisional), locati on of ulcer debrided, instrument used (scalpel etc), depth of debridement. Query created by: Bindu Steele on 09/28/2018 9:31 AM Electronically signed by: Theo Peters MD 10/05/2018 3:08 PM
== END 2018-09-28 22:07 | DRG 166 ==
LOC: ED 13:23 → ERH 16:41 → 5RNO 18:10 → CCU 09-19 19:38 → 2RNO 09-27 06:43
PROVIDERS: ADMIT Internal Medicine; ATTEND Internal Medicine
PROC: 5A09457 Assistance with Respiratory Ventilation, 24-96 Consecutive Hours, Continuous Positive Airway Pressure (ICD-10-PCS; 2018-09-19)
PROC: 06HN33Z Insertion of Infusion Device into Left Femoral Vein, Percutaneous Approach (ICD-10-PCS; 2018-09-20)
PROC: B54CZZA Ultrasonography of Left Lower Extremity Veins, Guidance (ICD-10-PCS; 2018-09-20)
PROC: 30243N1 Transfusion of Nonautologous Red Blood Cells into Central Vein, Percutaneous Approach (ICD-10-PCS; 2018-09-21)
PROC: 5A1D70Z Performance of Urinary Filtration, Intermittent, Less than 6 Hours Per Day (ICD-10-PCS; 2018-09-23)
PROC: 0JH63XZ Insertion of Tunneled Vascular Access Device into Chest Subcutaneous Tissue and Fascia, Percutaneous Approach (ICD-10-PCS; principal; 2018-09-25)
PROC: 02H633Z Insertion of Infusion Device into Right Atrium, Percutaneous Approach (ICD-10-PCS; 2018-09-25)
PROC: B544ZZA Ultrasonography of Left Jugular Veins, Guidance (ICD-10-PCS; 2018-09-25)
PROC: 5A1D70Z Performance of Urinary Filtration, Intermittent, Less than 6 Hours Per Day (ICD-10-PCS; 2018-09-25)
PROC: 5A1D70Z Performance of Urinary Filtration, Intermittent, Less than 6 Hours Per Day (ICD-10-PCS; 2018-09-27)
PROC: 0JBC0ZZ Excision of Pelvic Region Subcutaneous Tissue and Fascia, Open Approach (ICD-10-PCS; 2018-09-27)
DX: J18.9 Pneumonia, unspecified organism (principal); L89.613 Pressure ulcer of right heel, stage 3; L89.153 Pressure ulcer of sacral region, stage 3; J96.01 Acute respiratory failure with hypoxia; G93.41 Metabolic encephalopathy; N17.0 Acute kidney failure with tubular necrosis; A41.9 Sepsis, unspecified organism; I50.33 Acute on chronic diastolic (congestive) heart failure; J44.1 Chronic obstructive pulmonary disease with (acute) exacerbation; E87.1 Hypo-osmolality and hyponatremia; I13.0 Hypertensive heart and chronic kidney disease with heart failure and stage 1 through stage 4 chronic kidney disease, or unspecified chronic kidney disease; L03.115 Cellulitis of right lower limb; J98.11 Atelectasis; J44.0 Chronic obstructive pulmonary disease with (acute) lower respiratory infection; E44.0 Moderate protein-calorie malnutrition; T82.49XA Other complication of vascular dialysis catheter, initial encounter; I42.9 Cardiomyopathy, unspecified; R62.7 Adult failure to thrive; C50.919 Malignant neoplasm of unspecified site of unspecified female breast; I25.10 Atherosclerotic heart disease of native coronary artery without angina pectoris; I73.9 Peripheral vascular disease, unspecified; I27.20 Pulmonary hypertension, unspecified; G62.9 Polyneuropathy, unspecified; L89.320 Pressure ulcer of left buttock, unstageable; L89.310 Pressure ulcer of right buttock, unstageable; D63.1 Anemia in chronic kidney disease; D63.8 Anemia in other chronic diseases classified elsewhere; E87.5 Hyperkalemia; I95.3 Hypotension of hemodialysis; I08.3 Combined rheumatic disorders of mitral, aortic and tricuspid valves; M48.54XD Collapsed vertebra, not elsewhere classified, thoracic region, subsequent encounter for fracture with routine healing; K21.9 Gastro-esophageal reflux disease without esophagitis; N18.3 Chronic kidney disease, stage 3 (moderate); J84.10 Pulmonary fibrosis, unspecified; I77.810 Thoracic aortic ectasia; E78.5 Hyperlipidemia, unspecified; Z87.891 Personal history of nicotine dependence; Z95.1 Presence of aortocoronary bypass graft; Z17.0 Estrogen receptor positive status [ER+]; Z99.2 Dependence on renal dialysis; Z80.41 Family history of malignant neoplasm of ovary

== ENCOUNTER 2018-12-19 13:40 | Inpatient (IN) | payer MEDICARE, MEDICAID ==
[2018-12-19 13:40] VITALS: PULSE 85
[2018-12-19 13:58] VITALS: BMI 21.6
--- NOTE | 2018-12-19 14:19 | ED PDOC ---
Arrival/HPI - General Chief Complaint: Shortness Of Breath Time Seen by Provider: 12/19/18 13:42 Historian: Patient - History of Present Illness Narrative History of Present Illness (Text): 12/19/18 14:12 78 year old female, with a past medical history of COPD, pneumonia, and renal disease, who presents to the emergency department BIB family for worsening of shortnesses of breath since yesterday. Family endorses worsening of cough. As per family, patient received steroids and nebulizer treatment at [facility] prior to arrival. Patient denies any chest pain, fever, chills, nausea, vomiting, abdominal pain, headache, dizziness, or any other somatic complaints. PMD: Dr. Taylor Time/Duration: 24 hours Symptom Onset: Gradual Symptom Course: Unchanged Activities at Onset: Light Context: Home Past Medical History - Provider Review Nursing Documentation Reviewed: Yes - Infectious Disease Hx of Infectious Diseases: None - Cardiac Hx Cardiac Disorders: Yes (CAD) Hx Congestive Heart Failure: Yes Hx Hypertension: Yes - Pulmonary Hx Chronic Obstructive Pulmonary Disease (COPD): Yes - Neurological Hx Neurological Disorder: No Other/Comment: peripheral neuropathy - HEENT Hx HEENT Disorder: Yes (reading glasses) Hx Cataracts: Yes (cataract sx b/l lens implant age 52) - Renal Hx Renal Disorder: No - Endocrine/Metabolic Hx Endocrine Disorders: No - Hematological/Oncological Hx Blood Transfusions: No Hx Blood Transfusion Reaction: No - Integumentary Other/Comment: b/l arms multiple eccymotic areas "I bruise easily.", fell about a month ago slipped on a towel on the floor dry scab left knee surrounding skin red, fading bruises both knees from "crawling on floor when I fell", bruises both arms, redness to bottom of both feet, dry skin, redness tp sides of toes 4 & 5 both feet, redness to b/l bunyons, crooked great toes both feet, ble +1 pi tting edema, red coccyx - Musculoskeletal/Rheumatological Hx Arthritis: Yes - Gastrointestinal Hx Gastrointestinal Disorders: Yes (reflux/colon polyp) - Genitourinary/Gynecological Hx Genitourinary Disorders: No Hx Reproductive Disorders: Yes (hyst/r breast lumpectomy) - Psychiatric Hx Psychophysiologic Disorder: Yes Hx Anxiety: Yes Hx Depression: No Hx Emotional Abuse: No Hx Physical Abuse: No Hx Substance Use: No - Surgical History Other/Comment: R breast bx 10/26/17, right external jugular venous port 04/24/18 dr carlyle albrecht, 03/02/18 lap and 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 results as per pt, done by dr ahsan dubose - Anesthesia Hx Anesthesia Reactions: No Hx Malignant Hyperthermia: No - Suicidal Assessment Feels Threatened In Home Enviroment: No Family/Social History - Physician Review Nursing Documentation Reviewed: Yes Family/Social History: Unknown Family HX Smoking Status: Never Smoked Hx Alcohol Use: No Hx Substance Use: No Hx Substance Use Treatment: No Allergies/Home Meds Allergies/Adverse Reactions: Allergies No Known Allergies Allergy (Verified 12/19/18 13:58) Home Medications: Home Meds Medication Instructions Recorded Confirmed Metoprolol Tartrate [Lopressor] 50 mg PO BID 12/18/16 09/13/18 hydroCHLOROthiazide [Hydrodiuril] 25 mg PO DAILY 12/18/16 09/13/18 Escitalopram [Lexapro] 10 mg PO DAILY 03/21/17 09/13/18 Fluticasone Propionate [Flovent 1 puff IH BID 03/21/17 09/13/18 Hfa] Umeclidinium [place] [Incruse 1 puff IH DAILY 03/21/17 09/13/18 Ellipta] Review of Systems - Review of Systems Constitutional: Fatigue. absent: Fevers Eyes: absent: Vision Changes ENT: absent: Hearing Changes, Sore Throat, Rhinorrhea Respiratory: SOB, Cough Cardiovascular: absent: Chest Pain, Edema Gastrointestinal: absent: Abdominal Pain, Nausea, Vomiting, Hematochezia, Hematemesis Genitourinary Female: absent: Dysuria Musculoskeletal: absent: Back Pain, Neck Pain Skin: absent: Rash Neurological: absent: Headache, Dizziness, Focal Weakness Endocrine: absent: Polyuria Hemo/Lymphatic: absent: Easy Bleeding Psychiatric: Depression Physical Exam - Physical Exam Narrative Physical Exam (Text): 12/19/18 14:11 Head: Atraumatic. Normocephalic. Eyes: PERRL. EOMI. Conjunctivae are pale. ENT: Mucous membranes are dry. Oropharynx is clear and symmetric. Neck: Supple. Full ROM. No JVD. No lymphadenopathy. No meningeal signs. Cardiovascular: Regular rate. Regular rhythm. Systolic murmur noted. Distal pulses are palpable, equal. Pulmonary/Chest: Mildly tachypneic. No accessory muscle usage. Bilateral expiratory wheezing. Catheter to chest wall is clean and intact. Abdominal: Soft and non-distended. There is no tenderness. No rebound, guarding, or rigidity. No organomegaly. Good bowel sounds. Back: No CVA tenderness. Rectal: no active bleeding, no melena Extremities: No edema. No cyanosis. No clubbing. No calf pain. Skin: Skin is pale. No petechiae. No purpura. Neurological: Alert, awake, answers questions appropriately. Normal speech. No focal weakness. Psychiatric: Appears tired, but is easily arousable and answers questions. Vital Signs Reviewed: Yes Vital Signs Pulse Resp BP Pulse Ox 12/19/18 13:59 82 26 H 153/101 H 95 Blood Pressure: Hypertensive Pulse: Regular Respiratory Rate: Tachypneic Appearance: Positive for: Ill-Appearing Pain Distress: Mild Mental Status: Positive for: Alert and Oriented X 3 Medical Decision Making ED Course and Treatment: 12/19/18 14:10 Impression: 78 year old female presents to the emergency department complaining of shortness of breath since yesterday. History supplemented by family members at bedside. Differential Diagnosis included but are not limited to: COPD, CHF, anemia, coronary artery disease, sepsis Plan: -- Chest X-ray -- ABG, VBG -- Albuterol -- EKG -- Labs -- Urinalysis -- Blood culture -- Urine culture -- Reassess and disposition Prior Visits: Notes and results from previous visits were reviewed. Progress Notes: 12/19/18 15:00 Chest X-ray reviewed by radiologist, shows: Bilateral perihilar infiltrates are seen right greater than left. The pattern is similar to the prior exam. Patient evaluated with family at bedside. History supplemented by family. She has had progressive shortness of breath, with prior admissions this year to [place] and [facility] for what the family reports was pneumonia, renal failure. They state she has had worsening shortness of breath and hypoxia. On examination she is on 3 liters of nasal cannula oxygen and saturating at 95%. Bilateral expiratory wheezing noted, mild tachypnea. Duonebs ordered. CXR reviewed. There are infilatrates noted although appears improved from prior, and patient currently afebrile with unremarkable WBC and lactate. Of note, she is anemic, although not tachycardic or hypotensive, no current signs of active bleeding. Review of past records reveal that she has had this level of anemia in the past, although will closely monitor with admission. It is possible anemia is exacerbating current shortness of breath. Solumedrol ordered. Will admit to telemetry bed to monitor respiratory status. CO2 is elevated although current pH has been reviewed as well. Family requests Dr. Ginny Mullen, he was notified and accepts patient to his service. On re-evaluation, she is more comfortable after nebulizers., - Lab Interpretations Lab Results: 12/19/18 14:50 12/19/18 14:10 Lab Results 12/19/18 16:00: Influenza Typ A,B (EIA) Negative for flu a/b 12/19/18 14:50: PT 10.8, INR 0.97, APTT 33.9 12/19/18 14:50: WBC 7.5, RBC 2.52 L, Hgb 8.0 L D, Hct 27.6 L, MCV 109.5 H D, MCH 31.7, MCHC 29.0 L, RDW 18.4 H, Plt Count 205, MPV 10.0, Neut % (Auto) 91.5 H, Lymph % (Auto) 4.8 L, [place] % (Auto) 2.7, Eos % (Auto) 0.7 L, Baso % (Auto) 0.3, Lymph # (Auto) 0.4 L, [place] # (Auto) 0.2, Eos # (Auto) 0.1, Baso # (Auto) 0.02, Absolute Neuts (auto) 6.86 H, Neutrophils % (Manual) 92 H, Band Neutrophils % 1, Lymphocytes % (Manual) 6 L, Monocytes % (Manual) 1, Platelet Evaluation Normal, Anisocytosis (manual) Slight 12/19/18 14:40: pCO2 52 H, pO2 71.0 L, HCO3 32.2 H, ABG pH 7.40, ABG Total CO2 33.8 H, ABG O2 Saturation 98.4 H, ABG Base Excess 6.0 H, ABG Potassium 3.7, Sodium 144.0, Chloride 113.0 H, Glucose 126 H, Lactate 0.7, FiO2 32.0, Arterial Blood Potassium 3.7 12/19/18 14:10: Sodium 141, Chloride 104, Potassium 4.3, Carbon Dioxide 35 H, Anion Gap 8 L, BUN 16, Creatinine 0.5 L, Est GFR ( Amer) > 60, Est GFR (Non-Af Amer) > 60, Random Glucose 143 H, Calcium 9.5, Magnesium 2.0, Total Bilirubin 0.3, AST 35, ALT 30, Alkaline Phosphatase 66, Lactate Dehydrogenase 473, Total Creatine Kinase < 20 L, Troponin I 0.01, NT-Pro-B Natriuret Pep 14825 H, Total Protein 5.9, Albumin 3.1, Globulin 2.8, Albumin/Globulin Ratio 1.1 12/19/18 14:10: pO2 60 H, VBG pH 7.34, VBG pCO2 69.0 H*, VBG HCO3 37.2 H, VBG Total CO2 39.3 H, VBG O2 Sat (Calc) 94.5 H, VBG Base Excess 8.7 H, VBG Potassium 4.2, Sodium 143.0, Chloride 107.0, Glucose 142 H, Lactate 0.8, FiO2 21.0, Crit Value Called To Oscar patel, Crit Value Called By Atc, Blood Gas Notified Time 1535, Venous Blood Potassium 4.2 I have reviewed the lab results: Yes - Scribe Statement The provider has reviewed the documentation as recorded by the Gonzalez King Provider Scribe Attestation: All medical record entries made by the Scribe were at my direction and personally dictated by me. I have reviewed the chart and agree that the record accurately reflects my personal performance of the history, physical exam, medical decision making, and the department course for this patient. I have also personally directed, reviewed, and agree with the discharge instructions and disposition. Disposition/Present on Arrival - Present on Arrival Any Indicators Present on Arrival: No History of DVT/PE: No History of Uncontrolled Diabetes: No Urinary Catheter: No History of Decub. Ulcer: No History Surgical Site Infection Following: None - Disposition Have Diagnosis and Disposition been Completed?: Yes Diagnosis: Dyspnea, COPD exacerbation, Anemia Disposition: HOSPITALIZED Disposition Time: 16:05 Patient Plan: Admission, Telemetry Patient Problems: Current Active Problems Problem Status Onset Anemia Acute COPD exacerbation Acute Dyspnea Acute Condition: SERIOUS
[2018-12-19 14:43] LABS: ARTERIAL BLOOD GAS HCO3 32.2 mmol/L (21-28); ARTERIAL BLOOD GAS O2 SAT 98.4 % (95-98); ARTERIAL BLOOD GAS PCO2 52 mm/Hg (35-45); ARTERIAL BLOOD GAS TCO2 33.8 mmol.L (22-28)
--- NOTE | 2018-12-19 14:51 | RAD ---
Date of service: 12/19/2018 HISTORY: sob COMPARISON: 09/28/2018 TECHNIQUE: 1 view obtained. FINDINGS: LUNGS: Bilateral perihilar infiltrates are seen right greater than left. The pattern is similar to the prior exam PLEURA: No significant pleural effusion identified, no pneumothorax apparent. CARDIOVASCULAR: No aortic atherosclerotic calcification present. Moderate cardiomegaly no pulmonary vascular congestion. OSSEOUS STRUCTURES: Sternal wires VISUALIZED UPPER ABDOMEN: Normal. OTHER FINDINGS: None. IMPRESSION: Bilateral perihilar infiltrates are seen right greater than left. The pattern is similar to the prior exam
[2018-12-19] MEDS: Albuterol-Ipratrop 3 mg / 0.5 (3 ml) UD IH SCH ×4 (15:01→22:34)
[2018-12-19 15:31] LABS: BASO # 0.02 K/mm3 (0.0-2.0); BASO % 0.3 % (0.0-3.0); EOS # 0.1 (0.0-0.7); EOS % 0.7 % (1.5-5.0); LYMPH # 0.4 (1.2-3.4); LYMPH % 4.8 % (22.0-35.0); MEAN CELL VOLUME 109.5 fl (80.0-105.0); MEAN CORPUSCULAR HEMOGLOBIN 31.7 pg (25.0-35.0); MONO # 0.2 (0.1-0.6); MONO % 2.7 % (1.0-6.0); PLATELET COUNT 205 10^3/uL (120.0-450.0); RBC 2.52 10^6/uL (3.5-6.1); RED CELL DISTRIBUTION WIDTH 18.4 % (11.5-14.5); WHITE BLOOD COUNT 7.5 10^3/uL (4.5-11.0)
[2018-12-19 15:33] LABS: INR 0.97; PARTIAL THROMBOPLASTIN TIME 33.9 Seconds (26.9-38.3); PROTHROMBIN TIME 10.8 SECONDS (9.4-12.5)
[2018-12-19 15:35] LABS: ALB/GLOB RATIO 1.1 (1.1-1.8); ALBUMIN 3.1 g/dL (3.0-4.8); ALT/SGPT 30 U/L (7-56); AST/SGOT 35 U/L (14-36); BLOOD UREA NITROGEN 16 mg/dL (7-21); CALCIUM 9.5 mg/dL (8.4-10.5); GFR NON-AFRICAN AMERICAN > 60
[2018-12-19 15:37] LABS: VENOUS BLOOD GAS BASE EXCESS 8.7 mmol/L (0.0-2.0); VENOUS BLOOD GAS PO2 60 mm/Hg (30-55); VENOUS BLOOD PH 7.34 (7.32-7.43)
[2018-12-19 15:47] LABS: B-TYPE NATRIURETIC PEPTIDE 11000 pg/mL (0-450); TROPONIN I 0.01 ng/mL
[2018-12-19 16:33] LABS: ANISOCYTOSIS SLIGHT; BAND 1 % (0-2); LYMPHOCYTE 6 % (22.0-35.0); MONOCYTE 1 % (1.0-6.0); NEUTROPHIL 92 % (50.0-70.0); PLATELET ESTIMATE NORMAL (NORMAL)
[2018-12-20] MEDS: Albuterol-Ipratrop 3 mg / 0.5 (3 ml) UD IH SCH ×4 (04:33→19:28)
[2018-12-20] MEDS: Arformoterol 15 mcg/2 ml Inh Sol IH SCH ×2 (07:30→19:28)
[2018-12-20] MEDS ORDERED: Albuterol-Ipratrop 3 mg / 0.5 (3 ml) UD IH PRN (08:10)
--- NOTE | 2018-12-20 09:07 | CARD ---
APPROVED REPORT Date of service: 12/19/2018 EKG Measurement Heart [id number] <Conclusion> Normal Sinus rhythm Left axis deviation Right bundle branch block Abnormal ECG
[2018-12-20] MEDS ORDERED: MethylPREDNISolone 40 mg Vial IVP SCH ×2 (10:00→10:26)
[2018-12-20 10:02] LABS: HEMOGLOBIN 7.4 g/dL (12.0-16.0); MEAN CELL VOLUME 104.7 fl (80.0-105.0); MEAN CORPUSCULAR HEMOGLOBIN 31.4 pg (25.0-35.0); RBC 2.36 10^6/uL (3.5-6.1); RED CELL DISTRIBUTION WIDTH 18.2 % (11.5-14.5); WHITE BLOOD COUNT 6.9 10^3/uL (4.5-11.0)
[2018-12-20 10:12] LABS: ALB/GLOB RATIO 1.1 (1.1-1.8); ALBUMIN 2.9 g/dL (3.0-4.8); ALT/SGPT 31 U/L (7-56); AST/SGOT 34 U/L (14-36); BLOOD UREA NITROGEN 15 mg/dL (7-21); CALCIUM 9.9 mg/dL (8.4-10.5); GFR NON-AFRICAN AMERICAN > 60
[2018-12-20 10:13] LABS: IRON 61 ug/dL (45-180)
[2018-12-20 10:22] LABS: % IRON SATURATION 31 % (20-55); TOTAL IRON BINDING CAPACITY 194 ug/dL (265-497)
[2018-12-20] MEDS: Collagenase 250 Units/gm Ointment(30 gm) TOP SCH ×2 (12:23→18:31)
--- NOTE | 2018-12-20 12:44 | CON ---
DATE OF CONSULTATION: 12/20/2018 PULMONARY CONSULTATION REASON FOR CONSULTATION: Chronic obstructive pulmonary disease. REFERRING PHYSICIAN: Dr. Mullen. SOURCE OF HISTORY: History is obtained via extensive discussion with the nurse. I have also reviewed the chart at length, and discussed the case with the patient at length. HISTORY OF PRESENT ILLNESS: The patient is a chronically ill 78-year-old female, with past medical history significant for advanced chronic obstructive pulmonary disease, pneumonia in the past, coronary artery disease, status post open heart surgery, breast cancer, partial colectomy, who presents to [facility]3] - transferred from [facility] - with a 2-day history of increasing shortness of breath at rest, dyspnea on exertion, and cough. There is no history of significant sputum production. There is no history of chest pain, coughing up of blood, or chest pain - made worse with deep respirations. There is no history of temperatures, chills, or infectious exposure. There is no history of night sweats. There is no history of weight loss or appetite change prior to the above events. No history of calf pains. No history of syncope or diaphoresis. No history of recent travel or trauma. REVIEW OF SYSTEMS: No history of nausea, vomiting, or diarrhea. No acute urinary symptoms. No new neurologic complaints. Rest of the review of systems is negative. ALLERGIES: NO KNOWN ALLERGIES. SOCIAL HISTORY: Positive for tobacco and negative for alcohol. FAMILY HISTORY: No inheritable diseases. MEDICATIONS: Home medications include HydroDIURIL, Lyrica, Asmanex, Lopressor, Lexapro, Lipitor, Brovana, prednisone, Singulair, doxycycline, Flexeril, and Pulmicort. PHYSICAL EXAMINATION: GENERAL: The patient appears comfortable this morning. She is not short of breath at rest. She is not using accessory muscles for breathing. VITAL SIGNS: Temperature is 97.7, pulse 82, respirations 19, blood pressure 159/84. Oxygen saturation on nasal cannula - 98%. HEENT: Normocephalic, atraumatic. NECK: No JVD. CARDIOVASCULAR: Systolic ejection murmur at the lower left sternal border. No S3 gallop. LUNGS: Decreased breath sounds at the bases. Mild rhonchi and wheezing are appreciated bilaterally. EXTREMITIES: Mild edema, no cyanosis, no clubbing. Calves are nontender to palpation. GASTROINTESTINAL: Abdomen is soft, nontender and nondistended. Bowel sounds are positive. There is a feeding tube in place. SKIN: Positive sacral decubitus. No rashes. NEUROLOGIC: Exam limited at the present time. PERTINENT LABORATORY DATA: Chest x-ray was done yesterday and reviewed. The chest x-ray reveals a right perihilar infiltrate, similar to the infiltrate seen on the film of 09/28/2018. Compared to the film of 09/28/2018, there is less infiltrate noted in the left lung, as well as the right upper lobe. Arterial blood gas was done on nasal cannula. Results are: PH 7.40, pCO2 of 52, pO2 of 71. CBC: White count 7.5K, hemoglobin 8.0, hematocrit 27.6, platelets of 205,000. Complete metabolic profile: Carbon dioxide 35, anion gap 8, glucose 143. B-type natriuretic peptide 87555. Rest of the metabolic profile is within normal limits. IMPRESSION: 1. Acute bronchitis. 2. Advanced chronic obstructive pulmonary disease. 3. Chronic respiratory insufficiency. 4. Coronary artery disease. 5. Anemia. PLAN: Again, I did discuss the case with the nurse at length. I have also reviewed the chart at length, and discussed the case with the patient at length. The patient presents to [facility]3] - transferred from [facility] - with a 2-day history of worsening pulmonary symptoms. I did review the chest x-ray as above. The chest x-ray does show a chronic right perihilar infiltrate, but is certainly improved from the last film done on 09/28/2018. In addition, there is no history of fevers. There is no leukocytosis. I have also reviewed the arterial blood gas. The arterial blood gas does reveal CO2 retention, but with normal pH - indicating a chronic severe pulmonary abnormality. On physical exam, there is [id number] bronchospasm noted. I will continue the current nebulizer treatments and intravenous steroids for now. The patient does not seem acutely aware of her overall condition, and does not remember whether she uses the Asmanex every night. I will switch to Pulmicort for the time being. The patient does state to feeling better this morning, and is clinically improved. However, her overall status/prognosis does appear guarded. I will discuss the above with Dr. Mullen later this morning. Thank you very much for this pulmonary consultation. Anthony Hameed MD MTDRubin
--- NOTE | 2018-12-20 14:13 | PCM.PCON ---
History of Present Illness - History of Present Illness History of Present Illness: Palliative Consult requested by Dr. Ginny Mullen Reason: Advanced Directives 78 year old female who presented from [facility] to the ED on 12/19/2018 with worsening shortness of breath and non-productive cough. Patients family reports that she has been taken off of dialysis since her last admission. She denies any chest pain, fever, chills, nausea, vomiting, abdominal pain, headache, or dizziness. Chest X-Ray: Bilateral perihilar infiltrates are seen on right greater than left which is a similar pattern to the prior exam. EKG: Normal sinus rhythm, LAD, RBBB Labs: BNP 1100. BUN/WASTE MANAGEMENT SPECIALIST stable WNL; 15/0.5. H Flu negative. PCO2 (ABG) elevated: 52 PMHx: CAD, COPD, degenerative disc disease, T5 compression fracture, breast cancer ER/NH+ s/p adjuvant chemotherapy, CKD, UTI, deconditioning PSHx: right breast lumpectomy, port a cath,partial colectomy,kyphoplasty. 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 Family History: Breast and ovarian cancer. Advance Care Planning: The patient does not have an Advanced Directive. Review of Systems: As per HPI, 12 point ROS otherwise negative Physical Exam - Constitutional Appears: Chronically Ill Additional comments: Vital signs T 97, P 95, BP 170/80 R 18, 02 sat95% NC - Head Exam Head Exam: NORMOCEPHALIC - Eye Exam Eye Exam: Normal appearance, PERRL - ENT Exam ENT Exam: Mucous Membranes Moist - Respiratory Exam Respiratory Exam: Decreased Breath Sounds, Wheezes - Cardiovascular Exam Cardiovascular Exam: REGULAR RHYTHM, +S1 - GI/Abdominal Exam GI & Abdominal Exam: Normal Bowel Sounds, Soft - Extremities Exam Extremities exam: Positive for: pedal edema Additional comments: left heel wound - Back Exam Additional comments: stage 4 scral decubiti - Neurological Exam Neurological exam: Alert - Skin Skin Exam: Dry, Pallor, Warm - Additional Findings Additional findings: Palliative performance scale rating 40% Palliative Care Assessment - Modified MRC Dyspnea Scale Modified MRC Dyspnea Scale: Too breathless to leave the house,or breathless dressing or undressing Grade: 5 - Pain Description Intensity of pain at present: 0 - Brandon Scale Sensory Perception: Slightly Limited Activity: Bedfast Mobility: Very Limited Nutrition: Probably Inadequate Friction & Shear: Potential Problem - Psychosocial Distress Patient screened for psychosocial distress: Yes Outcome: Referred to social service agency director - Goals Treatment Goal(s): Alleviate symptoms, Improve ADLs, Improve quality of life End of life care discussed: Yes - Plan 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 The patient is alert and oriented but visibly short of breath with speaking. Patient's daughter at bedside. Family has been updated of patient's condition by the medical team. Family aware that prognosis is guarded. Family states that the patients overall health was improving since her discharge from [facility] in 09/2018 but acutely worsened this eak after being moved to another floor at her NH. Family is interested in discussing goals of care but wants to wait until patients other daughters are present. Palliative team endorsed that we will have this discussion when all family members are present. Psychosocial support provided. Time spent with family in goals of care and advance care planning, 30 minutes Plan: Goals of care and advanced planning: Pending discussion Pulmonary notes reviewed. Continue Duoneb treatments, Brovana/Pulmicort and IVP Solu-Medrol. Wound Care. Regular soft diet with ensure clear twice per day PT /OT Continue DVT Prophylaxis
--- NOTE | 2018-12-20 15:07 | CP.PCM.PCO ---
Physician Communication Note - Physician Communication Note Physician Communication Note: continue solumedrol and intermittent IV lasix, repeat labs in am.
--- NOTE | 2018-12-20 16:23 | HP ---
DATE OF EXAM: 12/20/2018 CHIEF COMPLAINT AND HISTORY OF PRESENT ILLNESS: This is a 78-year-old female with a past medical history of breast cancer, acute kidney injury on dialysis, COPD, coming into the hospital for evaluation of shortness of breath. The patient was at [facility] and now is being admitted to the hospital because she was having difficulty breathing. She is getting nebulizer treatment and steroids and had improvement of her breathing. The patient has a cough, was chronic, but worsen. She had a long history of hospitalizations, going to subacute rehabs. The patient has a history of breast cancer and was being treated by Dr. Phillips. The patient does not wish to see Dr. Phillips for followup anymore. The patient had been at [facility] for management. The patient had gone to [facility] for subacute rehab. She had finished her stay there and had become a long-term care in that facility. The patient does not know whether she has advanced directive. She was able to get most of the information from the medical records and also from talking to the patient's daughter. The patient says her breathing is better this morning. She has no headaches or dizziness. No nausea. No abdominal pain. No fevers or chills. She does have difficulty walking, does not able to walk for weeks, probably months. The patient had a PEG tube because she was not able to eat now. She has no appetite and has been no eating. REVIEW OF SYMPTOMS: All other review of symptoms are within normal limits except what was mentioned. ALLERGIES: SHE DENIES ALLERGIES TO ANY MEDICATIONS. MEDICATIONS: Reviewed on the SEP. PAST SURGICAL HISTORY: She had right breast lumpectomy, partial colectomy, and kyphoplasty. MEDICAL HISTORY: 1. Coronary artery disease, status post CABG. 2. COPD. 3. DJD. 4. T5 compression fracture. 5. Metastatic breast CA. 6. Acute kidney injury, on dialysis. 7. Tunneled dialysis catheter placement, left side chest. 8. Right port. 9. PEG. 10. Hypertension. FAMILY HISTORY: Noncontributory. SOCIAL HISTORY: She does not currently smoke or drink. PHYSICAL EXAMINATION VITAL SIGNS: Temperature is 97.7, pulse of 82, blood pressure 159/84, respirations 19 and O2 saturation is 98%. Height is 5 feet 5 inches. Weight is 128 pounds. BMI is 21. GENERAL: The patient is lying in bed, comfortable, and in no acute distress. HEENT: Atraumatic and normocephalic. Anicteric sclerae. Moist mucosa. Ripley conjunctivae. No oral lesions. NECK: No JVD, anterior and posterior adenopathy, thyromegaly, or bruits. CARDIOVASCULAR: S1 and S2 regular. No murmurs, rubs or gallops. LUNGS: Clear to auscultation bilaterally. No wheezes, rales, or rhonchi. CHEST: Right chest port and left tunneled dialysis catheter. ABDOMEN: There is PEG present in the bag. There is a stage III pressure ulcer that is about 7 to 8 cm diameter, it is clean. There is no erythema. No discharge. EXTREMITIES: No cyanosis, clubbing, or edema. NEUROLOGIC: No facial asymmetry. Tongue is midline. No uvula deviation. Power is 5/5 upper extremities and lower extremities. Sensation intact in upper extremities and lower extremities. PSYCHIATRIC: She is awake, alert and oriented x3. No anxiety or depression. She has normal affect. GENITOURINARY: No CVA tenderness. VASCULAR: 2+ pulses in the carotid pulses and pedal pulses. SKIN: There is no erythema. No discharge. SPINE: Shows normal curvature. LABORATORY DATA: White count of 7.5, hemoglobin is 8, platelet count is 205. INR is 0.97. Chemistry showed sodium 141, potassium is 4.3, creatinine is 0.5, albumin is 3.1. Serology shows influenza A and B is negative. An EKG done shows heart rate of 80. There is QTc of 486. There is left axis deviation and right bundle-branch block. Chest x-rays shows bilateral perihilar infiltrates, right greater than left. ASSESSMENT: 1. Acute chronic obstructive pulmonary disease exacerbation. 2. Metastatic breast cancer. 3. Hypertension. 4. Gait dysfunction. 5. Pulmonary hypertension. 6. Peptic ulcer disease. 7. Anemia, chronic. 8. Right port. 9. Left tunneled dialysis catheter. 10. Percutaneous endoscopic gastrostomy. 11. Stage III pressure ulcer. 12. Lipidemia. 13. Depression. PLAN: The patient is currently admitted to the hospital because of acute COPD exacerbation. She is having shortness of breath. She is improved with Solu-Medrol and DuoNeb treatments. She is going to continuing on Solu-Medrol and DuoNeb. I was able to get most of the history from the patient's daughter. The patient is on hydrochlorothiazide for hypertension. She is on Lipitor for dyslipidemia. The patient is going to be on Lexapro for the anxiety. The patient is on heart healthy diet. I will get Pulmonary to see the patient. I will order iron studies because of the anemia. The patient is going to have repeat blood work done tomorrow. We will get physical therapy. I will also get Juliana Jasmine to evaluate for advanced planning. The patient's prognosis is guarded, although it seems that she is improved. I did talk to the social media community manager about the patient's living conditions at [facility]. She is currently long-term. Michael Mullen MD
[2018-12-20 17:51] LABS: FOLATE > 20.0 ng/mL
[2018-12-20] MEDS ORDERED: Mometasone 220 mcg/puff-14 puff Inh IH SCH (18:00)
[2018-12-20] MEDS: Budesonide 0.5 mg/2 ml Inhal Susp UD IH SCH (19:28)
--- NOTE | 2018-12-20 22:39 | CP.PCM.PN ---
Subjective - Date & Time of Evaluation Date of Evaluation: 12/20/18 Time of Evaluation: 22:39 - Subjective Subjective: Patient was seen at bedside. resident director had ordered Zofran 4 mg IV and Protonix 40 mg IV . I was asked to co-sign order. Patient has no complaints. Pertinent medical record was reviewed. This 78 year old female was admitted with sob. Has PMH of COPD,breast cancer, JAJA, CAD,S/P CABG. Objective - Vital Signs/Intake and Output Vital Signs (last 24 hours): Temp Pulse Resp BP Pulse Ox 98.3 F 84 18 131/77 95 12/20/18 18:00 12/20/18 18:30 12/20/18 18:00 12/20/18 18:30 12/20/18 09:28 Intake and Output: 12/20/18 12/21/18 18:59 06:59 Intake Total 1658 Output Total 2400 Balance -742 - Medications Medications: Current Medications Albuterol/Ipratropium (Duoneb 3 Mg/0.5 Mg (3 Ml) Ud) 3 ml IH TIDRESP [facility] Last Admin: 12/20/18 19:28 Dose: 3 ml Albuterol/Ipratropium (Duoneb 3 Mg/0.5 Mg (3 Ml) Ud) 3 ml IH [id number] PRN PRN Reason: Shortness of Breath Last Admin: 12/20/18 10:26 Dose: 3 ml Arformoterol Tartrate (Brovana) 15 mcg IH [id number] [facility] Last Admin: 12/20/18 19:28 Dose: 15 mcg Aspirin (Ecotrin) 81 mg PO DAILY [facility] Last Admin: 12/20/18 09:30 Dose: 81 mg Atorvastatin Calcium (Lipitor) 20 mg PO DIN [facility] Last Admin: 12/20/18 18:31 Dose: 20 mg Budesonide (Pulmicort Respules) 0.5 mg IH [id number] [facility] Last Admin: 12/20/18 19:28 Dose: 0.5 mg Collagenase (Santyl) 0 gm TOP BID [facility] Last Admin: 12/20/18 18:31 Dose: 1 applic Escitalopram Oxalate (Lexapro) 10 mg PO DAILY [facility] Last Admin: 12/20/18 09:30 Dose: 10 mg Hydrochlorothiazide (Hydrodiuril) 25 mg PO DAILY [facility] Last Admin: 12/20/18 09:31 Dose: 25 mg Methylprednisolone (Solu-Medrol) 40 mg IVP Q12 [facility] Metoprolol Tartrate (Lopressor) 25 mg PO BID [facility] Last Admin: 12/20/18 18:30 Dose: 25 mg Pregabalin (Lyrica) 50 mg PO HS [facility] Last Admin: 12/19/18 22:27 Dose: 50 mg - Labs Labs: 12/20/18 09:45 12/20/18 09:45 PT 10.8 SECONDS (9.4-12.5) 12/19/18 14:50 INR 0.97 12/19/18 14:50 APTT 33.9 Seconds (26.9-38.3) 12/19/18 14:50 - Constitutional Appears: Well, No Acute Distress - Head Exam Head Exam: ATRAUMATIC, NORMAL INSPECTION, NORMOCEPHALIC - Eye Exam Eye Exam: Normal appearance - ENT Exam ENT Exam: Normal External Ear Exam - Neck Exam Neck Exam: Normal Inspection - Respiratory Exam Respiratory Exam: NORMAL BREATHING PATTERN - Cardiovascular Exam Cardiovascular Exam: absent: JVD - GI/Abdominal Exam GI & Abdominal Exam: absent: Distended - Rectal Exam Rectal Exam: Deferred - Exam Additional comments: Deferred. - Extremities Exam Extremities Exam: Normal Inspection - Back Exam Back Exam: NORMAL INSPECTION - Neurological Exam Neurological Exam: Alert, Awake - Psychiatric Exam Psychiatric exam: Normal Affect, Normal Mood - Skin Skin Exam: Normal Color Assessment and Plan - Assessment and Plan (Free Text) Assessment: Nausea/Vomiting. COPD. Breast cancer. JAJA. CAD. S/P CABG. Plan: Zofran 4 mg IV x 1. Protonix 40 mg IV x 1. Continue present management.
[2018-12-21 07:15] LABS: HEMOGLOBIN 7.2 g/dL (12.0-16.0); MEAN CELL VOLUME 104.8 fl (80.0-105.0); MEAN CORPUSCULAR HEMOGLOBIN 31.7 pg (25.0-35.0); MEAN CORPUSCULAR HGB CONC 30.3 g/dl (31.0-37.0); RBC 2.27 10^6/uL (3.5-6.1); RED CELL DISTRIBUTION WIDTH 18.2 % (11.5-14.5); WHITE BLOOD COUNT 6.8 10^3/uL (4.5-11.0)
[2018-12-21 07:32] LABS: ALB/GLOB RATIO 1.2 (1.1-1.8); ALT/SGPT 31 U/L (7-56); AST/SGOT 29 U/L (14-36); BLOOD UREA NITROGEN 17 mg/dL (7-21); CALCIUM 9.8 mg/dL (8.4-10.5); GFR NON-AFRICAN AMERICAN > 60
--- NOTE | 2018-12-21 07:43 | PN ---
DATE: 12/21/2018 SUBJECTIVE: The patient appears quite comfortable this morning. She is not short of breath at rest. PHYSICAL EXAMINATION: VITAL SIGNS: Temperature is 97.9, pulse 68, respirations 18/20, blood pressure 129/66. Oxygen saturation on nasal cannula - 100%. HEENT: Normocephalic, atraumatic. No JVD. CARDIOVASCULAR: Systolic ejection murmur at the lower left sternal border. No S3 gallop. LUNGS: Decreased breath sounds at the bases. Less rhonchi. No wheezing this morning. EXTREMITIES: Mild edema, no cyanosis, no clubbing. Calves are nontender to palpation. GASTROINTESTINAL: Abdomen is soft, nontender and nondistended. Bowel sounds are positive. There is a feeding tube in place. SKIN: Positive sacral decubitus. No rashes. NEUROLOGIC: Exam limited at the present time. IMPRESSION: 1. Acute bronchitis. 2. Advanced chronic obstructive pulmonary disease. 3. Chronic respiratory insufficiency. 4. Coronary artery disease. 5. Anemia. PLAN: The patient appears quite comfortable this morning. She is not short of breath at rest. She does state to feeling better overall. I did discuss the case with the night nurse at length. The night nurse stated the patient had a good night. On physical exam, there is certainly less bronchospasm noted. In addition, the oxygen saturation on nasal cannula is now 100%. I will continue the current nebulizer treatments, and decrease the intravenous steroids this morning. Input by Palliative Care (Juliana Jasmine) is also noted. Clinical status of the patient is definitely improved - compared to the initial presentation. However, the future status/prognosis for this chronically ill patient remains guarded. I will discuss the above with Dr. Fontana. Anthony Hameed MD [email or web address]
[2018-12-21] MEDS: Albuterol-Ipratrop 3 mg / 0.5 (3 ml) UD IH SCH ×3 (08:25→20:04)
[2018-12-21] MEDS: Arformoterol 15 mcg/2 ml Inh Sol IH SCH ×2 (08:25→20:04)
[2018-12-21] MEDS: Budesonide 0.5 mg/2 ml Inhal Susp UD IH SCH ×2 (08:25→20:04)
[2018-12-21] MEDS: MethylPREDNISolone 40 mg Vial IVP SCH ×2 (09:25→22:28)
[2018-12-21] MEDS: Collagenase 250 Units/gm Ointment(30 gm) TOP SCH ×2 (10:27→19:01)
--- NOTE | 2018-12-21 11:33 | CP.PCM.PN ---
<Rolo Ventura - Last Filed: 12/21/18 11:29> Subjective - Date & Time of Evaluation Date of Evaluation: 12/21/18 Time of Evaluation: 07:50 - Subjective Subjective: Rolo Ventura D.O. PGY-3, Internal Medicine Resident, Dr. Mullen's Service, Progress Note 78-year-old female with a past medical history of COPD, previous breast cancer, acute kidney injury, COPD, CAD status post CABG, DJD, T5 compression fracture who presents for complaints of worsening shortness of breath. Patient was seen and examined at bedside. Patient states that she has to be careful when eating to not get short of breath or get palpitations and could mostly keep her sense for short so she does not exacerbate her shortness of breath. Denies any aspiration or choking-like symptoms. Objective - Vital Signs/Intake and Output Vital Signs (last 24 hours): Temp Pulse Resp BP Pulse Ox 97.9 F 84 20 129/66 100 12/21/18 06:00 12/21/18 09:24 12/21/18 06:00 12/21/18 09:24 12/21/18 06:00 Intake and Output: 12/21/18 12/21/18 06:59 18:59 Intake Total 480 Output Total 1000 Balance -520 - Medications Medications: Current Medications Albuterol/Ipratropium (Duoneb 3 Mg/0.5 Mg (3 Ml) Ud) 3 ml IH TIDRESP [facility] Last Admin: 12/21/18 08:25 Dose: 3 ml Albuterol/Ipratropium (Duoneb 3 Mg/0.5 Mg (3 Ml) Ud) 3 ml IH [id number] PRN PRN Reason: Shortness of Breath Last Admin: 12/20/18 10:26 Dose: 3 ml Arformoterol Tartrate (Brovana) 15 mcg IH [id number] [facility] Last Admin: 12/21/18 08:25 Dose: 15 mcg Aspirin (Ecotrin) 81 mg PO DAILY [facility] Last Admin: 12/21/18 09:24 Dose: 81 mg Atorvastatin Calcium (Lipitor) 20 mg PO DIN [facility] Last Admin: 12/20/18 18:31 Dose: 20 mg Budesonide (Pulmicort Respules) 0.5 mg IH [id number] [facility] Last Admin: 12/21/18 08:25 Dose: 0.5 mg Collagenase (Santyl) 0 gm TOP BID [facility] Last Admin: 12/21/18 10:27 Dose: 1 applic Cyanocobalamin (Vitamin B12 1000 Mcg/Ml Inj) 1,000 mcg IM DAILY [facility] Last Admin: 12/21/18 09:24 Dose: 1,000 mcg Escitalopram Oxalate (Lexapro) 10 mg PO DAILY [facility] Last Admin: 12/21/18 09:24 Dose: 10 mg Hydrochlorothiazide (Hydrodiuril) 25 mg PO DAILY [facility] Last Admin: 12/21/18 09:24 Dose: 25 mg Methylprednisolone (Solu-Medrol) 30 mg IVP Q12 [facility] Last Admin: 12/21/18 09:25 Dose: 30 mg Metoprolol Tartrate (Lopressor) 25 mg PO BID [facility] Last Admin: 12/21/18 09:24 Dose: 25 mg Pregabalin (Lyrica) 50 mg PO HS [facility] Last Admin: 12/20/18 23:06 Dose: 50 mg - Labs Labs: 12/21/18 06:36 12/21/18 06:36 PT 10.8 SECONDS (9.4-12.5) 12/19/18 14:50 INR 0.97 12/19/18 14:50 APTT 33.9 Seconds (26.9-38.3) 12/19/18 14:50 - Constitutional Appears: Chronically Ill - Head Exam Head Exam: ATRAUMATIC, NORMOCEPHALIC - Eye Exam Eye Exam: EOMI. absent: Scleral icterus - ENT Exam ENT Exam: Mucous Membranes Moist - Neck Exam Neck Exam: Normal Inspection - Respiratory Exam Respiratory Exam: absent: Rales, Rhonchi, Wheezes - Cardiovascular Exam Cardiovascular Exam: +S1, +S2. absent: Gallop, Rubs - GI/Abdominal Exam GI & Abdominal Exam: Soft, Normal Bowel Sounds. absent: Distended, Tenderness - Extremities Exam Extremities Exam: absent: Tenderness - Neurological Exam Neurological Exam: Awake - Skin Skin Exam: Dry, Warm Assessment and Plan - Assessment and Plan (Free Text) Assessment: 78-year-old female with a past medical history of COPD, previous breast cancer, acute kidney injury, COPD, CAD status post CABG, DJD, T5 compression fracture who presents for complaints of worsening shortness of breath. Plan: 1. Acute COPD exacerbation 2. CAD status post CABG 3. Hypertension 4. Hyperlipidemia 5. Neuropathy 6. Macrocytic anemia 7. Anxiety 8. Sacral decubiti Continue with Brovana and Pulmicort as well as Solu-Medrol 30 every 12 and scheduled and as needed nebulizers. Pulmonology is following and their recs are appreciated. For her CAD she is currently on her home aspirin and metoprolol. For hypertension she is well controlled currently with hydrochlorothiazide. For neuropathy will continue her Lyrica. For her anxiety we will continue with Lexapro. Wound care undergoing for sacral decubiti. For her anemia which has been steadily downtrending we have obtained iron studies which appear normal. B12 is on the very low end of normal so we will start with cyanocobalamin every day for 1 week. We will also consult hematology oncology. Will follow up the recommendations. Pending PT evaluation. We will monitor the patient closely. Patient was seen and examined and case discussed with attending physician at length. <Michael Mullen S - Last Filed: 12/21/18 16:11> Objective - Vital Signs/Intake and Output Vital Signs (last 24 hours): Temp Pulse Resp BP Pulse Ox 98.2 F 83 20 153/70 H 100 12/21/18 12:00 12/21/18 12:00 12/21/18 12:00 12/21/18 12:00 12/21/18 06:00 Intake and Output: 12/21/18 12/21/18 06:59 18:59 Intake Total 480 Output Total 1000 Balance -520 - Medications Medications: Current Medications Albuterol/Ipratropium (Duoneb 3 Mg/0.5 Mg (3 Ml) Ud) 3 ml IH TIDRESP [facility] Last Admin: 12/21/18 13:45 Dose: 3 ml Albuterol/Ipratropium (Duoneb 3 Mg/0.5 Mg (3 Ml) Ud) 3 ml IH [id number] PRN PRN Reason: Shortness of Breath Last Admin: 12/20/18 10:26 Dose: 3 ml Arformoterol Tartrate (Brovana) 15 mcg IH [id number] [facility] Last Admin: 12/21/18 08:25 Dose: 15 mcg Aspirin (Ecotrin) 81 mg PO DAILY [facility] Last Admin: 12/21/18 09:24 Dose: 81 mg Atorvastatin Calcium (Lipitor) 20 mg PO DIN [facility] Last Admin: 12/20/18 18:31 Dose: 20 mg Budesonide (Pulmicort Respules) 0.5 mg IH [id number] [facility] Last Admin: 12/21/18 08:25 Dose: 0.5 mg Collagenase (Santyl) 0 gm TOP BID [facility] Last Admin: 12/21/18 10:27 Dose: 1 applic Cyanocobalamin (Vitamin B12 1000 Mcg/Ml Inj) 1,000 mcg IM DAILY [facility] Last Admin: 12/21/18 09:24 Dose: 1,000 mcg Escitalopram Oxalate (Lexapro) 10 mg PO DAILY [facility] Last Admin: 12/21/18 09:24 Dose: 10 mg Hydrochlorothiazide (Hydrodiuril) 25 mg PO DAILY [facility] Last Admin: 12/21/18 09:24 Dose: 25 mg Methylprednisolone (Solu-Medrol) 30 mg IVP Q12 [facility] Last Admin: 12/21/18 09:25 Dose: 30 mg Metoprolol Tartrate (Lopressor) 25 mg PO BID [facility] Last Admin: 12/21/18 09:24 Dose: 25 mg Pregabalin (Lyrica) 50 mg PO HS [facility] Last Admin: 12/20/18 23:06 Dose: 50 mg - Labs Labs: 12/21/18 06:36 12/21/18 06:36 PT 10.8 SECONDS (9.4-12.5) 12/19/18 14:50 INR 0.97 12/19/18 14:50 APTT 33.9 Seconds (26.9-38.3) 12/19/18 14:50 Assessment and Plan - Assessment and Plan (Free Text) Plan: Patient was seen and examined by me. I have reviewed the note of the medical diagnostic radiographer and have gone over the plan of care. I agree with the note. I have reviewed the medications and the last labs.
--- NOTE | 2018-12-21 11:45 | PCM.PPROG ---
History of Present Illness - History of Present Illness History of Present Illness: alert, dyspnea on exertion Physical Exam - Constitutional Appears: No Acute Distress, Chronically Ill - Eye Exam Eye Exam: Normal appearance, PERRL - ENT Exam ENT Exam: Mucous Membranes Moist - Respiratory Exam Respiratory Exam: Decreased Breath Sounds, Wheezes - Cardiovascular Exam Cardiovascular Exam: REGULAR RHYTHM - GI/Abdominal Exam GI & Abdominal Exam: Normal Bowel Sounds, Soft - Extremities Exam Extremities exam: Positive for: pedal edema - Back Exam Additional comments: sacral decubiti - Neurological Exam Neurological exam: Alert - Skin Skin Exam: Dry, Pallor Palliative Care Assessment - Modified MRC Dyspnea Scale Modified MRC Dyspnea Scale: Too breathless to leave the house,or breathless dressing or undressing Grade: 5 - Pain Description Intensity of pain at present: 3 Pain Behavior: Restlessness Aggravating Factors: Changing Position Alleviating Factors/Management Techniques: Medication - Brandon Scale Sensory Perception: Slightly Limited Moisture: Occasionally Moist Activity: Bedfast Mobility: Very Limited Nutrition: Adequate Friction & Shear: Problem Total Score - Skin Risk Assessment: 13 Palliative Care - Goals Treatment Goal(s): Alleviate symptoms, Improve ADLs, Improve quality of life End of life care discussed: Yes - Plan Interdisciplinary involved: driver/sales workers, Physician Assessment & Plan - Assessment and Plan (Free Text) Assessment: 78-year-old female with a past medical history of COPD, previous breast cancer, acute kidney injury, COPD, CAD status post CABG, DJD, T5 compression fracture who is admitted with COPD exacerbation, bronchitis, respiratory insufficiency. Mrs Ramirez is seen in bed,offers no compaints. Advance care planning discussion revisited. She has not discussed resuscitation status with her family. Burdens of CPR/intubation explained. She is leaning toward remaining full code status at this time. She is appreciative of palliative input and support. Time spent with patient in advance care planning and goals of care, 20 minutes Plan: Goals of care and advanced planning: Pending discussion Continue Duoneb treatments, Brovana/Pulmicort and IVP Solu-Medrol. Wound Care. Regular soft diet PT /OT Continue DVT Prophylaxis
--- NOTE | 2018-12-21 12:33 | CP.PCM.CON ---
<LastMarcin - Last Filed: 12/22/18 09:36> History of Present Illness - History of Present Illness History of Present Illness: Heme/onc(Char): Last, PGY - 2 Reason for consult: Pt has anemia with hx Breast CA; Epo? Consult Requested: Dr. Mullen, Dr. Ventura 76 F with PMH of htn, CAD with CABG, COPD, h/o CAP ( November 2016), multi level degenerative disc, chronic anemia, and dx of breast cancer not on treatment presented to [facility] with shortness of breath. Patient denies fever or chills. Patient denies n/v/d. Denies chest pain, headache, dizziness or palpitations. ED work up revealed CXR unchanged from before; blood gas showed elevated CO2, consistent with COPD exacerbation. Patient currently comfortable at bedside and denies any complaints on interview besides fatigue. Further investigation reveals that patient received 3-4 treatments of Taxotere that she completed treatment with. Patient was apparently due to get radiation therapy with Dr. Linn before, but had a kyphoplasty so was unable to start treatment. Patient has bilateral chest ports, but received chemotherapy through the R port. Review of Systems: 12 point ROS obtained and negative except as per HPI Surg Hx: Hysterectomy, CABG, cataract surgery Med Hx: HTN, CAD with CABG, COPD, h/o CAP ( November 2016), multi level degenerative disc, anxiety, GERD. All: NKDA Social: Former tobacco ( in her 20s), denies alcohol or illicit drug use. Home Meds: Reviewed, as per SEP FMH: Mom of breast cancer, dad had htn. Past Patient History - Infectious Disease Hx of Infectious Diseases: None - Past Social History Smoking Status: Never Smoked - CARDIAC Hx Cardiac Disorders: Yes (CAD) Hx Congestive Heart Failure: Yes Hx Hypertension: Yes - PULMONARY Hx Chronic Obstructive Pulmonary Disease (COPD): Yes - NEUROLOGICAL Hx Neurological Disorder: No Other/Comment: peripheral neuropathy - HEENT Hx HEENT Problems: Yes (reading glasses) Hx Cataracts: Yes (cataract sx b/l lens implant age 52) - RENAL Hx Chronic Kidney Disease: No - ENDOCRINE/METABOLIC Hx Endocrine Disorders: No - HEMATOLOGICAL/ONCOLOGICAL Hx Blood Transfusions: No Hx Blood Transfusion Reaction: No - INTEGUMENTARY Other/Comment: b/l arms multiple eccymotic areas "I bruise easily.", fell about a month ago slipped on a towel on the floor dry scab left knee surrounding skin red, fading bruises both knees from "crawling on floor when I fell", bruises both arms, redness to bottom of both feet, dry skin, redness tp sides of toes 4 & 5 both feet, redness to b/l bunyons, crooked great toes both feet, ble +1 pitting edema, red coccyx - MUSCULOSKELETAL/RHEUMATOLOGICAL Hx Arthritis: Yes - GASTROINTESTINAL Hx Gastrointestinal Disorders: Yes (reflux/colon polyp) - GENITOURINARY/GYNECOLOGICAL Hx Genitourinary Disorders: No Hx Reproductive Disorders: Yes (hyst/r breast lumpectomy) - PSYCHIATRIC Hx Psychophysiologic Disorder: Yes Hx Anxiety: Yes Hx Depression: No Hx Emotional Abuse: No Hx Physical Abuse: No Hx Substance Use: No - SURGICAL HISTORY Other/Comment: R breast bx 10/26/17, right external jugular venous port 04/24/18 dr carlyle albrecht, 03/02/18 lap and 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 results as per pt, done by dr ahsan dubose - ANESTHESIA Hx Anesthesia Reactions: No Hx Malignant Hyperthermia: No Meds Allergies/Adverse Reactions: Allergies Allergy/AdvReac Type Severity Reaction Status Date / Time No Known Allergies Allergy Verified 12/19/18 13:58 - Medications Medications: Current Medications Albuterol/Ipratropium (Duoneb 3 Mg/0.5 Mg (3 Ml) Ud) 3 ml IH TIDRESP [facility] Last Admin: 12/21/18 08:25 Dose: 3 ml Albuterol/Ipratropium (Duoneb 3 Mg/0.5 Mg (3 Ml) Ud) 3 ml IH [id number] PRN PRN Reason: Shortness of Breath Last Admin: 12/20/18 10:26 Dose: 3 ml Arformoterol Tartrate (Brovana) 15 mcg IH [id number] [facility] Last Admin: 12/21/18 08:25 Dose: 15 mcg Aspirin (Ecotrin) 81 mg PO DAILY [facility] Last Admin: 12/21/18 09:24 Dose: 81 mg Atorvastatin Calcium (Lipitor) 20 mg PO DIN [facility] Last Admin: 12/20/18 18:31 Dose: 20 mg Budesonide (Pulmicort Respules) 0.5 mg IH [id number] [facility] Last Admin: 12/21/18 08:25 Dose: 0.5 mg Collagenase (Santyl) 0 gm TOP BID [facility] Last Admin: 12/21/18 10:27 Dose: 1 applic Cyanocobalamin (Vitamin B12 1000 Mcg/Ml Inj) 1,000 mcg IM DAILY [facility] Last Admin: 12/21/18 09:24 Dose: 1,000 mcg Escitalopram Oxalate (Lexapro) 10 mg PO DAILY [facility] Last Admin: 12/21/18 09:24 Dose: 10 mg Hydrochlorothiazide (Hydrodiuril) 25 mg PO DAILY [facility] Last Admin: 12/21/18 09:24 Dose: 25 mg Methylprednisolone (Solu-Medrol) 30 mg IVP Q12 [facility] Last Admin: 12/21/18 09:25 Dose: 30 mg Metoprolol Tartrate (Lopressor) 25 mg PO BID [facility] Last Admin: 12/21/18 09:24 Dose: 25 mg Pregabalin (Lyrica) 50 mg PO HS [facility] Last Admin: 12/20/18 23:06 Dose: 50 mg Physical Exam - Constitutional Appears: Well - Head Exam Head Exam: ATRAUMATIC, NORMAL INSPECTION, NORMOCEPHALIC - Eye Exam Eye Exam: EOMI, Normal appearance, PERRL Pupil Exam: NORMAL ACCOMODATION, PERRL - ENT Exam ENT Exam: Mucous Membranes Moist, Normal Exam - Neck Exam Neck exam: Positive for: Normal Inspection - Respiratory Exam Respiratory Exam: Clear to Auscultation Bilateral, NORMAL BREATHING PATTERN - Cardiovascular Exam Cardiovascular Exam: REGULAR RHYTHM - GI/Abdominal Exam GI & Abdominal Exam: Normal Bowel Sounds, Soft. absent: Tenderness - Extremities Exam Extremities exam: Positive for: normal inspection - Back Exam Back exam: NORMAL INSPECTION - Neurological Exam Neurological exam: Alert, CN II-XII Intact, Normal Gait, Oriented x3, Reflexes Normal - Psychiatric Exam Psychiatric exam: Normal Affect, Normal Mood - Skin Skin Exam: Dry, Intact, Normal Color, Warm Results - Vital Signs Recent Vital Signs: Last Vital Signs Temp 98.2 F 12/21/18 12:00 Pulse 83 12/21/18 12:00 Resp 20 12/21/18 12:00 BP 153/70 H 12/21/18 12:00 Pulse Ox 100 12/21/18 06:00 - Labs Result Diagrams: 12/22/18 06:11 12/22/18 06:11 Labs: Laboratory Results - last 24 hr 12/20/18 12/20/18 12/21/18 09:45 10:35 06:36 WBC 6.8 RBC 2.27 L Hgb 7.2 L Hct 23.8 L MCV 104.8 MCH 31.7 MCHC 30.3 L RDW 18.2 H Plt Count 230 MPV 10.0 Sodium Potassium Chloride Carbon Dioxide Anion Gap BUN Creatinine Est GFR ( Amer) Est GFR (Non-Af Amer) Random Glucose Calcium Ferritin 427.0 Total Bilirubin AST ALT Alkaline Phosphatase Total Protein Albumin Globulin Albumin/Globulin Ratio Vitamin B12 266 Folate > 20.0 Blood Type Antibody Screen BBK History Checked 12/21/18 12/21/18 06:36 06:36 WBC RBC Hgb Hct MCV MCH MCHC RDW Plt Count MPV Sodium 139 Potassium 4.0 Chloride 98 Carbon Dioxide 35 H Anion Gap 10 BUN 17 Creatinine 0.5 L Est GFR ( Amer) > 60 Est GFR (Non-Af Amer) > 60 Random Glucose 119 H Calcium 9.8 Ferritin Total Bilirubin 0.3 AST 29 ALT 31 Alkaline Phosphatase 56 Total Protein 5.5 L Albumin 3.0 Globulin 2.5 Albumin/Globulin Ratio 1.2 Vitamin B12 Folate Blood Type O POSITIVE Antibody Screen Negative BBK History Checked Patient has bt Assessment & Plan - Assessment and Plan (Free Text) Assessment: 78-year-old female with a past medical history of COPD, previous breast cancer, acute kidney injury, COPD, CAD status post CABG, DJD, T5 compression fracture who presents for complaints of worsening shortness of breath. Heme Onc consulted for breast cancer history and anemia Acute COPD exacerbation CAD status post CABG Hypertension Hyperlipidemia Neuropathy Macrocytic anemia Anxiety Sacral decubiti Plan: - Noted Type and cross, peripheral smear, Vit B12 and Folate, and Iron studies from primary - agree - Will obtain genetic testing given patient's history of colonic tumors and breast tumors and involvement of 2 generations (third unknown) - Will obtain Her2/ER/TN status from primary - Hemoglobinopathy, electropheresis - Will obtain GI consult <Manjula Pardo - Last Filed: 12/22/18 14:16> Meds - Medications Medications: Current Medications Albuterol/Ipratropium (Duoneb 3 Mg/0.5 Mg (3 Ml) Ud) 3 ml IH TIDRESP [facility] Last Admin: 12/22/18 13:18 Dose: 3 ml Albuterol/Ipratropium (Duoneb 3 Mg/0.5 Mg (3 Ml) Ud) 3 ml IH [id number] PRN PRN Reason: Shortness of Breath Last Admin: 12/20/18 10:26 Dose: 3 ml Amlodipine Besylate (Norvasc) 5 mg PO DAILY [facility] Last Admin: 12/22/18 13:40 Dose: 5 mg Arformoterol Tartrate (Brovana) 15 mcg IH [id number] [facility] Last Admin: 12/22/18 08:18 Dose: 15 mcg Aspirin (Ecotrin) 81 mg PO DAILY [facility] Last Admin: 12/22/18 09:27 Dose: 81 mg Atorvastatin Calcium (Lipitor) 20 mg PO DIN [facility] Last Admin: 12/21/18 18:51 Dose: 20 mg Budesonide (Pulmicort Respules) 0.5 mg IH [id number] [facility] Last Admin: 12/22/18 08:18 Dose: 0.5 mg Collagenase (Santyl) 0 gm TOP BID [facility] Last Admin: 12/22/18 09:50 Dose: 1 applic Cyanocobalamin (Vitamin B12 1000 Mcg/Ml Inj) 1,000 mcg IM DAILY [facility] Last Admin: 12/22/18 09:27 Dose: 1,000 mcg Escitalopram Oxalate (Lexapro) 10 mg PO DAILY [facility] Last Admin: 12/22/18 09:27 Dose: 10 mg Hydrochlorothiazide (Hydrodiuril) 25 mg PO DAILY [facility] Last Admin: 12/22/18 09:27 Dose: 25 mg Methylprednisolone (Solu-Medrol) 30 mg IVP Q12 [facility] Last Admin: 12/22/18 09:26 Dose: 30 mg Metoprolol Tartrate (Lopressor) 25 mg PO BID [facility] Last Admin: 12/22/18 09:27 Dose: 25 mg Pantoprazole Sodium (Protonix Ec Tab) 20 mg PO 0600 TORI Pregabalin (Lyrica) 50 mg PO HS [facility] Last Admin: 12/21/18 22:28 Dose: 50 mg Results - Vital Signs Recent Vital Signs: Last Vital Signs Temp 98.0 F 12/22/18 05:45 Pulse 85 12/22/18 10:00 Resp 20 12/22/18 05:45 BP 172/78 H 12/22/18 13:40 Pulse Ox 97 12/22/18 05:45 - Labs Result Diagrams: 12/22/18 06:11 12/22/18 06:11 Labs: Laboratory Results - last 24 hr 12/21/18 12/22/18 12/22/18 06:36 05:00 06:11 WBC 6.0 RBC 2.27 L Hgb 7.2 L Hct 23.6 L MCV 104.0 MCH 31.7 MCHC 30.5 L RDW 17.7 H Plt Count 210 MPV 9.8 Neut % (Auto) 87.0 H Lymph % (Auto) 8.3 L Irwin % (Auto) 4.7 Eos % (Auto) 0.0 L Baso % (Auto) 0.0 Lymph # (Auto) 0.5 L Irwin # (Auto) 0.3 Eos # (Auto) 0.0 Baso # (Auto) 0.00 Absolute Neuts (auto) 5.22 Retic Count 3.02 H Sodium Potassium Chloride Carbon Dioxide Anion Gap BUN Creatinine Est GFR ( Amer) Est GFR (Non-Af Amer) Random Glucose Calcium Total Bilirubin AST ALT Alkaline Phosphatase Total Protein Albumin Globulin Albumin/Globulin Ratio WB Flow Cytometry Reference test Blood Type O POSITIVE Antibody Screen Negative Crossmatch See Detail BBK History Checked Patient has bt 12/22/18 06:11 WBC RBC Hgb Hct MCV MCH MCHC RDW Plt Count MPV Neut % (Auto) Lymph % (Auto) Irwin % (Auto) Eos % (Auto) Baso % (Auto) Lymph # (Auto) Irwin # (Auto) Eos # (Auto) Baso # (Auto) Absolute Neuts (auto) Retic Count Sodium 140 Potassium 3.8 Chloride 98 Carbon Dioxide 35 H Anion Gap 11 BUN 17 Creatinine 0.6 L Est GFR ( Amer) > 60 Est GFR (Non-Af Amer) > 60 Random Glucose 126 H Calcium 9.8 Total Bilirubin 0.3 AST 37 H D ALT 32 Alkaline Phosphatase 58 Total Protein 5.5 L Albumin 2.9 L Globulin 2.6 Albumin/Globulin Ratio 1.1 WB Flow Cytometry Blood Type Antibody Screen Crossmatch BBK History Checked Attending/Attestation - Attestation I have personally seen and examined this patient.: Yes I have fully participated in the care of the patient.: Yes I have reviewed all pertinent clinical information: Yes
--- NOTE | 2018-12-21 12:59 | CP.PCM.PCO ---
Physician Communication Note - Physician Communication Note Physician Communication Note: PT eval pending
--- NOTE | 2018-12-21 19:57 | PN ---
DATE: 12/21/2018 SUBJECTIVE: The patient was seen and examined. 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 I was involved in plan of care. The patient had acute COPD exacerbation. She is on nebulizer treatment. She is on Brovana and Pulmicort. She is on Solu-Medrol. The patient has coronary artery disease and will continue on aspirin and metoprolol. She is on Lyrica for her neuropathy. The patient has a large sacral pressure ulcer, stage 3, that is getting local wound care. The patient will need B12 to help with the borderline B12 deficiency. We will need to get Oncology evaluation for her breast cancer. The patient has not had any further intervention for quite some time. The patient will need physical therapy. She is eating and tolerating. Michael Mullen MD
[2018-12-22 06:44] LABS: HEMOGLOBIN 7.2 g/dL (12.0-16.0); LYMPH # 0.5 (1.2-3.4); LYMPH % 8.3 % (22.0-35.0); MEAN CORPUSCULAR HEMOGLOBIN 31.7 pg (25.0-35.0); MEAN CORPUSCULAR HGB CONC 30.5 g/dl (31.0-37.0); MEAN PLATELET VOLUME 9.8 fl (7.0-11.0); MONO # 0.3 (0.1-0.6); MONO % 4.7 % (1.0-6.0); RBC 2.27 10^6/uL (3.5-6.1); RED CELL DISTRIBUTION WIDTH 17.7 % (11.5-14.5)
[2018-12-22 07:22] LABS: ALB/GLOB RATIO 1.1 (1.1-1.8); ALBUMIN 2.9 g/dL (3.0-4.8); ALT/SGPT 32 U/L (7-56); AST/SGOT 37 U/L (14-36); BLOOD UREA NITROGEN 17 mg/dL (7-21); CALCIUM 9.8 mg/dL (8.4-10.5); GFR NON-AFRICAN AMERICAN > 60
--- NOTE | 2018-12-22 07:22 | CP.PCM.CON ---
<Robert Castro - Last Filed: 12/22/18 14:33> History of Present Illness - History of Present Illness History of Present Illness: Robert Castro Internal Medicine Resident- Consult Note on Behalf of Dr. Burr Subjective: CC: Anemia HPI: Patient is a 78-year-old female with a past medical history of COPD, previous breast cancer, acute kidney injury, COPD, CAD status post CABG, DJD, T5 compression fracture who was admitted for evaluation and treatment of worsening shortness of breath. GI team was consulted for the management of anemia. Patient seen and examined at bedside. No acute events overnight. Since previous EGD/colonscopy in 2018 patient underwent laproscopy with right hemicolectomy to remove the tumor of the cecum. Admits to baseline fecal incontinence. Able to tolerate diet however admits to decreased appetite. Denies abdominal pain, nausea, vomiting, diarrhea, constipation, bright red blood per rectum, black stools, and change in stool caliber. Further denies fever, chills, chest pain, SOB. 12 point ROS negative except as indicated in the HPI Past medical history: COPD, previous breast cancer, acute kidney injury, COPD, CAD status post CABG, DJD, T5 compression fracture Past surgical history: right breast lumpectomy, partial colectomy, kyphoplasty, hysterectomy, CABG, cataract surgery Allergies: NKDA Social history: former tobacco ( in her 20s), denies alcohol or illicit drug use. Family history: Mom- breast cancer, dad- htn Medications: as per [facility] Physical Examination: - Constitutional Appears: Chronically Ill - Head Exam Head Exam: ATRAUMATIC, NORMOCEPHALIC - Eye Exam Eye Exam: EOMI. absent: Scleral icterus - ENT Exam ENT Exam: Mucous Membranes Moist - Neck Exam Neck Exam: Normal Inspection - Respiratory Exam Respiratory Exam: absent: Rales, Rhonchi, Wheezes - Cardiovascular Exam Cardiovascular Exam: +S1, +S2. absent: Gallop, Rubs - GI/Abdominal Exam GI & Abdominal Exam: Soft, Normal Bowel Sounds. absent: Distended, Tenderness - Extremities Exam Extremities Exam: absent: Tenderness - Neurological Exam Neurological Exam: Awake, alert, orientated x 3, responds to verbal stimuli, follows commands, answers questions appropriately - Skin Skin Exam: Dry, Warm Studies Reviewed: 02/06/2018 Colonoscopy- diverticulosis of the entire colon, internal hemorrhoids, one 40mm polyp in the cecum ( tubulovillous adenoma), one 15mm polyp in the ascending colon (tubular ademoma-removed), one 8 mm in the sigmoid colon (removed- tubular adenoma), one 5mm polyp in the sigmoid colon (serrated- removed), one 12mm polyp in the sigmoid colon (serrated- removed), one 5mm polyp in the rectum (hyperpastic- removed) 12/06/2017 Endoscopy- esophageal mucosal changes suspicious for long segment Paiz's esophagus, 5 cm hiatal hernia, one gastric polyp (ulcerated inflammed hyperplastic polyp with reactive surface epithelia), gastric biopsies (mild chronic gastritis), few duodenal polyps (biopsied- no benign small bowel mucosa, no active inflammation, no increased intraepithelial lymphocytes) Assessment and Plan: Patient is a 78-year-old female with a past medical history of COPD, previous [place] cancer, acute kidney injury, COPD, CAD status post CABG, DJD, T5 compression fracture who was admitted for evaluation and treatment of worsening shortness of breath. Normocytic Anemia Hx of Gastric Polyps Hx of Duodenal Polyps Hx of Colonic Polyps Mild Chronic Gastritis - EGD/Colonoscopy records reviewed as above - Macrocytic anemia- iron studies reviewed likely secondary to B12 deficiency - continue with vitamin b12 IM as ordered - continue pantoprazole 20mg PO daily - abdominal CT with PO and IV contrast ordered and pending Patient case discussed with and plan approved by attending physician, Dr. Burr. Past Patient History - Infectious Disease Hx of Infectious Diseases: None - Past Social History Smoking Status: Never Smoked - CARDIAC Hx Cardiac Disorders: Yes (CAD) Hx Congestive Heart Failure: Yes Hx Hypertension: Yes - PULMONARY Hx Chronic Obstructive Pulmonary Disease (COPD): Yes - NEUROLOGICAL Hx Neurological Disorder: No Other/Comment: peripheral neuropathy - HEENT Hx HEENT Problems: Yes (reading glasses) Hx Cataracts: Yes (cataract sx b/l lens implant age 52) - RENAL Hx Chronic Kidney Disease: No - ENDOCRINE/METABOLIC Hx Endocrine Disorders: No - HEMATOLOGICAL/ONCOLOGICAL Hx Blood Transfusions: No Hx Blood Transfusion Reaction: No - INTEGUMENTARY Other/Comment: b/l arms multiple eccymotic areas "I bruise easily.", fell about a month ago slipped on a towel on the floor dry scab left knee surrounding skin red, fading bruises both knees from "crawling on floor when I fell", bruises both arms, redness to bottom of both feet, dry skin, redness tp sides of toes 4 & 5 both feet, redness to b/l bunyons, crooked great toes both feet, ble +1 pitting edema, red coccyx - MUSCULOSKELETAL/RHEUMATOLOGICAL Hx Arthritis: Yes - GASTROINTESTINAL Hx Gastrointestinal Disorders: Yes (reflux/colon polyp) - GENITOURINARY/GYNECOLOGICAL Hx Genitourinary Disorders: No Hx Reproductive Disorders: Yes (hyst/r breast lumpectomy) - PSYCHIATRIC Hx Psychophysiologic Disorder: Yes Hx Anxiety: Yes Hx Depression: No Hx Emotional Abuse: No Hx Physical Abuse: No Hx Substance Use: No - SURGICAL HISTORY Other/Comment: R breast bx 10/26/17, right external jugular venous port 04/24/18 dr carlyle albrecht, 03/02/18 lap and 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 results as per pt, done by dr ahsan dubose - ANESTHESIA Hx Anesthesia Reactions: No Hx Malignant Hyperthermia: No Meds Allergies/Adverse Reactions: Allergies Allergy/AdvReac Type Severity Reaction Status Date / Time No Known Allergies Allergy Verified 12/19/18 13:58 - Medications Medications: Current Medications Albuterol/Ipratropium (Duoneb 3 Mg/0.5 Mg (3 Ml) Ud) 3 ml IH TIDRESP [facility] Last Admin: 12/21/18 20:04 Dose: 3 ml Albuterol/Ipratropium (Duoneb 3 Mg/0.5 Mg (3 Ml) Ud) 3 ml IH [id number] PRN PRN Reason: Shortness of Breath Last Admin: 12/20/18 10:26 Dose: 3 ml Arformoterol Tartrate (Brovana) 15 mcg IH [id number] [facility] Last Admin: 12/21/18 20:04 Dose: 15 mcg Aspirin (Ecotrin) 81 mg PO DAILY [facility] Last Admin: 12/21/18 09:24 Dose: 81 mg Atorvastatin Calcium (Lipitor) 20 mg PO DIN [facility] Last Admin: 12/21/18 18:51 Dose: 20 mg Budesonide (Pulmicort Respules) 0.5 mg IH [id number] [facility] Last Admin: 12/21/18 20:04 Dose: 0.5 mg Collagenase (Santyl) 0 gm TOP BID [facility] Last Admin: 12/21/18 19:01 Dose: 1 applic Cyanocobalamin (Vitamin B12 1000 Mcg/Ml Inj) 1,000 mcg IM DAILY [facility] Last Admin: 12/21/18 09:24 Dose: 1,000 mcg Escitalopram Oxalate (Lexapro) 10 mg PO DAILY [facility] Last Admin: 12/21/18 09:24 Dose: 10 mg Hydrochlorothiazide (Hydrodiuril) 25 mg PO DAILY [facility] Last Admin: 12/21/18 09:24 Dose: 25 mg Methylprednisolone (Solu-Medrol) 30 mg IVP Q12 [facility] Last Admin: 12/21/18 22:28 Dose: 30 mg Metoprolol Tartrate (Lopressor) 25 mg PO BID [facility] Last Admin: 12/21/18 18:51 Dose: 25 mg Pregabalin (Lyrica) 50 mg PO HS [facility] Last Admin: 12/21/18 22:28 Dose: 50 mg Results - Vital Signs Recent Vital Signs: Last Vital Signs Temp 98.0 F 12/22/18 05:45 Pulse 81 12/22/18 05:45 Resp 20 12/22/18 05:45 BP 178/74 H 12/22/18 05:45 Pulse Ox 97 12/22/18 05:45 - Labs Result Diagrams: 12/22/18 06:11 12/22/18 06:11 Labs: Laboratory Results - last 24 hr 12/21/18 12/21/18 12/21/18 06:36 06:36 06:36 WBC 6.8 RBC 2.27 L Hgb 7.2 L Hct 23.8 L MCV 104.8 MCH 31.7 MCHC 30.3 L RDW 18.2 H Plt Count 230 MPV 10.0 Neut % (Auto) Lymph % (Auto) [place] % (Auto) Eos % (Auto) Baso % (Auto) Lymph # (Auto) [place] # (Auto) Eos # (Auto) Baso # (Auto) Absolute Neuts (auto) Retic Count Sodium 139 Potassium 4.0 Chloride 98 Carbon Dioxide 35 H Anion Gap 10 BUN 17 Creatinine 0.5 L Est GFR ( Amer) > 60 Est GFR (Non-Af Amer) > 60 Random Glucose 119 H Calcium 9.8 Total Bilirubin 0.3 AST 29 ALT 31 Alkaline Phosphatase 56 Total Protein 5.5 L Albumin 3.0 Globulin 2.5 Albumin/Globulin Ratio 1.2 Blood Type O POSITIVE Antibody Screen Negative BBK History Checked Patient has bt 12/21/18 12/22/18 12:57 06:11 WBC 6.0 RBC 2.27 L Hgb 7.2 L Hct 23.6 L MCV 104.0 MCH 31.7 MCHC 30.5 L RDW 17.7 H Plt Count 210 MPV 9.8 Neut % (Auto) 87.0 H Lymph % (Auto) 8.3 L [place] % (Auto) 4.7 Eos % (Auto) 0.0 L Baso % (Auto) 0.0 Lymph # (Auto) 0.5 L [place] # (Auto) 0.3 Eos # (Auto) 0.0 Baso # (Auto) 0.00 Absolute Neuts (auto) 5.22 Retic Count 3.74 H 3.02 H Sodium Potassium Chloride Carbon Dioxide Anion Gap BUN Creatinine Est GFR ( Amer) Est GFR (Non-Af Amer) Random Glucose Calcium Total Bilirubin AST ALT Alkaline Phosphatase Total Protein Albumin Globulin Albumin/Globulin Ratio Blood Type Antibody Screen BBK History Checked <Rubio Burr V - Last Filed: 12/22/18 19:01> Meds - Medications Medications: Current Medications Albuterol/Ipratropium (Duoneb 3 Mg/0.5 Mg (3 Ml) Ud) 3 ml IH TIDRESP [facility] Last Admin: 12/22/18 13:18 Dose: 3 ml Albuterol/Ipratropium (Duoneb 3 Mg/0.5 Mg (3 Ml) Ud) 3 ml IH [id number] PRN PRN Reason: Shortness of Breath Last Admin: 12/20/18 10:26 Dose: 3 ml Amlodipine Besylate (Norvasc) 5 mg PO DAILY [facility] Last Admin: 12/22/18 13:40 Dose: 5 mg Arformoterol Tartrate (Brovana) 15 mcg IH [id number] [facility] Last Admin: 12/22/18 08:18 Dose: 15 mcg Aspirin (Ecotrin) 81 mg PO DAILY [facility] Last Admin: 12/22/18 09:27 Dose: 81 mg Atorvastatin Calcium (Lipitor) 20 mg PO DIN [facility] Last Admin: 12/21/18 18:51 Dose: 20 mg Budesonide (Pulmicort Respules) 0.5 mg IH [id number] [facility] Last Admin: 12/22/18 08:18 Dose: 0.5 mg Collagenase (Santyl) 0 gm TOP BID [facility] Last Admin: 12/22/18 09:50 Dose: 1 applic Cyanocobalamin (Vitamin B12 1000 Mcg/Ml Inj) 1,000 mcg IM DAILY [facility] Last Admin: 12/22/18 09:27 Dose: 1,000 mcg Escitalopram Oxalate (Lexapro) 10 mg PO DAILY [facility] Last Admin: 12/22/18 09:27 Dose: 10 mg Furosemide (Lasix) 20 mg IVP ONCE ONE Stop: 12/23/18 17:53 Hydrochlorothiazide (Hydrodiuril) 25 mg PO DAILY [facility] Last Admin: 12/22/18 09:27 Dose: 25 mg Methylprednisolone (Solu-Medrol) 30 mg IVP Q12 [facility] Last Admin: 12/22/18 09:26 Dose: 30 mg Metoprolol Tartrate (Lopressor) 25 mg PO BID [facility] Last Admin: 12/22/18 09:27 Dose: 25 mg Pantoprazole Sodium (Protonix Ec Tab) 20 mg PO 0600 [facility] Pregabalin (Lyrica) 50 mg PO HS [facility] Last Admin: 12/21/18 22:28 Dose: 50 mg Results - Vital Signs Recent Vital Signs: Last Vital Signs Temp 98.4 F 12/22/18 14:41 Pulse 70 12/22/18 14:41 Resp 18 12/22/18 14:41 BP 172/76 H 12/22/18 14:41 Pulse Ox 95 12/22/18 14:00 - Labs Result Diagrams: 12/22/18 06:11 12/22/18 06:11 Labs: Laboratory Results - last 24 hr 12/21/18 12/22/18 12/22/18 06:36 05:00 06:11 WBC 6.0 RBC 2.27 L Hgb 7.2 L Hct 23.6 L MCV 104.0 MCH 31.7 MCHC 30.5 L RDW 17.7 H Plt Count 210 MPV 9.8 Neut % (Auto) 87.0 H Lymph % (Auto) 8.3 L [place] % (Auto) 4.7 Eos % (Auto) 0.0 L Baso % (Auto) 0.0 Lymph # (Auto) 0.5 L [place] # (Auto) 0.3 Eos # (Auto) 0.0 Baso # (Auto) 0.00 Absolute Neuts (auto) 5.22 Retic Count 3.02 H Sodium Potassium Chloride Carbon Dioxide Anion Gap BUN Creatinine Est GFR ( Amer) Est GFR (Non-Af Amer) Random Glucose Calcium Total Bilirubin AST ALT Alkaline Phosphatase Total Protein Albumin Globulin Albumin/Globulin Ratio WB Flow Cytometry Reference test Blood Type O POSITIVE Antibody Screen Negative Crossmatch See Detail BBK History Checked Patient has bt 12/22/18 06:11 WBC RBC Hgb Hct MCV MCH MCHC RDW Plt Count MPV Neut % (Auto) Lymph % (Auto) [place] % (Auto) Eos % (Auto) Baso % (Auto) Lymph # (Auto) [place] # (Auto) Eos # (Auto) Baso # (Auto) Absolute Neuts (auto) Retic Count Sodium 140 Potassium 3.8 Chloride 98 Carbon Dioxide 35 H Anion Gap 11 BUN 17 Creatinine 0.6 L Est GFR ( Amer) > 60 Est GFR (Non-Af Amer) > 60 Random Glucose 126 H Calcium 9.8 Total Bilirubin 0.3 AST 37 H D ALT 32 Alkaline Phosphatase 58 Total Protein 5.5 L Albumin 2.9 L Globulin 2.6 Albumin/Globulin Ratio 1.1 WB Flow Cytometry Blood Type Antibody Screen Crossmatch BBK History Checked Attending/Attestation - Attestation I have personally seen and examined this patient.: Yes I have fully participated in the care of the patient.: Yes I have reviewed all pertinent clinical information: Yes Notes (Text): This is an addendum to the GI consultation report dictated by the resident. The patient was seen and evaluated earlier. The patient has significant anemia normocytic. B12 borderline. Multiple colon polyps. Status post a EMR and also status post right hemicolectomy. Patient did have a large villous adenoma removed surgically from the cecum by right hemicolectomy. Patient also had pi ecemeal polypectomies. History of a large hiatus hernia and ulcerated hyperplastic polyp removed by snare cautery. Patient has been on PPI. Likely [place] ulcers. History of breast cancer. Patient has been followed by Dr. Pardo, oncologist Will request a CT scan of the abdomen and pelvis with p.o. and IV contrast to further evaluate Continue Protonix Close follow-up of hemoglobin hematocrit. We will discuss with the Dr. Fontana 12/22/18 18:58
--- NOTE | 2018-12-22 08:16 | PN ---
DATE: 12/22/2018 PULMONARY NOTE SUBJECTIVE: The patient appears very comfortable this morning. She is not short of breath at rest. OBJECTIVE: VITALS: Temperature is 98, pulse 81, respirations 18/20, blood pressure 178/74. Oxygen saturation on nasal cannula 97% to 98%. HEENT: Normocephalic, atraumatic. No JVD. CARDIOVASCULAR: Systolic ejection murmur at the lower left sternal border. No S3 gallop. LUNGS: Decreased breath sounds at the bases. Very minimal/less rhonchi. No wheezing. EXTREMITIES: Mild edema. No cyanosis, no clubbing. Calves are nontender to palpation. GASTROINTESTINAL: Abdomen is soft, nontender, and nondistended. Bowel sounds are positive. There is a feeding tube in place. SKIN: Positive sacral decubitus. No rashes. NEUROLOGIC: Limited at the present time. IMPRESSION: 1. Acute bronchitis. 2. Advanced chronic obstructive pulmonary disease. 3. Chronic respiratory insufficiency. 4. Coronary artery disease. 5. Anemia. PLAN: The patient appears very comfortable this morning. She is not short of breath at rest. She does state to feeling much better overall. On physical exam, her bronchospasm continues to resolve. In addition, the alveolar arterial gradient also continues to resolve. I will continue the current nebulizer treatments and low-dose intravenous steroids (decreased yesterday) for now. Inputs by Gastroenterology and Palliative Care are also noted. Clinical status of the patient is certainly improved - compared to the initial presentation. However, given the above, the future status/prognosis for this chronically ill patient does remain guarded. I will discuss the above with the attending physician. Anthony Hameed MD [facility]
[2018-12-22] MEDS: Budesonide 0.5 mg/2 ml Inhal Susp UD IH SCH ×2 (08:18→19:38)
[2018-12-22] MEDS: Arformoterol 15 mcg/2 ml Inh Sol IH SCH ×2 (08:18→19:38)
[2018-12-22] MEDS: Albuterol-Ipratrop 3 mg / 0.5 (3 ml) UD IH SCH ×3 (08:18→19:38)
[2018-12-22] MEDS: MethylPREDNISolone 40 mg Vial IVP SCH ×2 (09:26→22:04)
[2018-12-22] MEDS: Collagenase 250 Units/gm Ointment(30 gm) TOP SCH ×2 (09:50→18:34)
--- NOTE | 2018-12-22 12:10 | CP.PCM.PN ---
<Rolo Ventura - Last Filed: 12/22/18 19:27> Subjective - Date & Time of Evaluation Date of Evaluation: 12/22/18 Time of Evaluation: 07:55 - Subjective Subjective: Rolo Ventura D.O. PGY-3, Internal Medicine Resident, Dr. Mullen's Service, Progress Note 78-year-old female with a past medical history of COPD, previous breast cancer, acute kidney injury, COPD, CAD status post CABG, DJD, T5 compression fracture who presents for complaints of worsening shortness of breath. Patient was seen and examined at bedside. Doing somewhat better. States breathing marginally improved. Later seen with daughter at bedside. Objective - Vital Signs/Intake and Output Vital Signs (last 24 hours): Temp Pulse Resp BP Pulse Ox 98.0 F 85 20 180/69 H 97 12/22/18 05:45 12/22/18 10:00 12/22/18 05:45 12/22/18 09:27 12/22/18 05:45 Intake and Output: 12/22/18 12/22/18 06:59 18:59 Intake Total 1078 Output Total 1550 Balance -472 - Medications Medications: Current Medications Albuterol/Ipratropium (Duoneb 3 Mg/0.5 Mg (3 Ml) Ud) 3 ml IH TIDRESP [facility] Last Admin: 12/22/18 08:18 Dose: 3 ml Albuterol/Ipratropium (Duoneb 3 Mg/0.5 Mg (3 Ml) Ud) 3 ml IH [id number] PRN PRN Reason: Shortness of Breath Last Admin: 12/20/18 10:26 Dose: 3 ml Amlodipine Besylate (Norvasc) 5 mg PO DAILY [facility] Arformoterol Tartrate (Brovana) 15 mcg IH [id number] [facility] Last Admin: 12/22/18 08:18 Dose: 15 mcg Aspirin (Ecotrin) 81 mg PO DAILY [facility] Last Admin: 12/22/18 09:27 Dose: 81 mg Atorvastatin Calcium (Lipitor) 20 mg PO DIN [facility] Last Admin: 12/21/18 18:51 Dose: 20 mg Budesonide (Pulmicort Respules) 0.5 mg IH [id number] [facility] Last Admin: 12/22/18 08:18 Dose: 0.5 mg Collagenase (Santyl) 0 gm TOP BID [facility] Last Admin: 12/22/18 09:50 Dose: 1 applic Cyanocobalamin (Vitamin B12 1000 Mcg/Ml Inj) 1,000 mcg IM DAILY [facility] Last Admin: 12/22/18 09:27 Dose: 1,000 mcg Escitalopram Oxalate (Lexapro) 10 mg PO DAILY [facility] Last Admin: 12/22/18 09:27 Dose: 10 mg Hydrochlorothiazide (Hydrodiuril) 25 mg PO DAILY [facility] Last Admin: 12/22/18 09:27 Dose: 25 mg Methylprednisolone (Solu-Medrol) 30 mg IVP Q12 [facility] Last Admin: 12/22/18 09:26 Dose: 30 mg Metoprolol Tartrate (Lopressor) 25 mg PO BID [facility] Last Admin: 12/22/18 09:27 Dose: 25 mg Pregabalin (Lyrica) 50 mg PO HS [facility] Last Admin: 12/21/18 22:28 Dose: 50 mg - Labs Labs: 12/22/18 06:11 12/22/18 06:11 PT 10.8 SECONDS (9.4-12.5) 12/19/18 14:50 INR 0.97 12/19/18 14:50 APTT 33.9 Seconds (26.9-38.3) 12/19/18 14:50 - Constitutional Appears: Chronically Ill, Please elderly female - Head Exam Head Exam: ATRAUMATIC, NORMOCEPHALIC - Eye Exam Eye Exam: EOMI. absent: Scleral icterus - ENT Exam ENT Exam: Mucous Membranes Moist - Neck Exam Neck Exam: Normal Inspection - Respiratory Exam Respiratory Exam: poor air movement - Cardiovascular Exam Cardiovascular Exam: +S1, +S2. absent: Gallop, Rubs - GI/Abdominal Exam GI & Abdominal Exam: Soft, Normal Bowel Sounds. absent: Distended, Tenderness - Extremities Exam Extremities Exam: absent: Tenderness - Neurological Exam Neurological Exam: Awake - Skin Skin Exam: Dry, Warm Assessment and Plan - Assessment and Plan (Free Text) Assessment: 78-year-old female with a past medical history of COPD, previous breast cancer, acute kidney injury, COPD, CAD status post CABG, DJD, T5 compression fracture who presents for complaints of worsening shortness of breath. Plan: 1. Acute COPD exacerbation 2. CAD status post CABG 3. Hypertension 4. Hyperlipidemia 5. Neuropathy 6. Macrocytic anemia 7. Anxiety 8. Sacral decubiti Pulmonary is following, the recommendations are appreciated. Currently patient for her COPD is on Brovana Pulmicort as well as scheduled and as needed nebulizers. Her Solu-Medrol will be continued for now at 30q12. For her CAD she continues on aspirin and Lipitor. Her blood pressure has been elevated so we will start the patient on Norvasc 5 mg and continue with her hydrochlorothiazide and metoprolol. For her neuropathy she will be continued on her Lyrica. For her anemia we currently have hematology following and they have also added consultation by GI. Work-up is currently underway. Their respective recommendations are appreciated. Patient was started on cyanocobalamin and we will continue this. Patient has been receiving wound care for her sacral decubiti with appropriate improvements. Pending CT of the abdomen and pelvis per GI recommendations. We will follow-up on the results. For now we will discontinue telemetry and patient will be transferred to [facility] [place]. We will continue to follow the patient closely. Patient was seen and examined and case discussed with attending physician at length. <Michael Mullen S - Last Filed: 12/22/18 19:43> Objective - Vital Signs/Intake and Output Vital Signs (last 24 hours): Temp Pulse Resp BP Pulse Ox 98.3 F 80 20 149/75 95 12/22/18 19:07 12/22/18 19:07 12/22/18 19:07 12/22/18 19:07 12/22/18 14:00 Intake and Output: 12/22/18 12/23/18 18:59 06:59 Intake Total 510 Output Total 600 Balance -90 - Medications Medications: Current Medications Albuterol/Ipratropium (Duoneb 3 Mg/0.5 Mg (3 Ml) Ud) 3 ml IH TIDRESP [facility] Last Admin: 12/22/18 19:38 Dose: 3 ml Albuterol/Ipratropium (Duoneb 3 Mg/0.5 Mg (3 Ml) Ud) 3 ml IH [id number] PRN PRN Reason: Shortness of Breath Last Admin: 12/20/18 10:26 Dose: 3 ml Amlodipine Besylate (Norvasc) 5 mg PO DAILY [facility] Last Admin: 12/22/18 13:40 Dose: 5 mg Arformoterol Tartrate (Brovana) 15 mcg IH [id number] [facility] Last Admin: 12/22/18 19:38 Dose: 15 mcg Aspirin (Ecotrin) 81 mg PO DAILY [facility] Last Admin: 12/22/18 09:27 Dose: 81 mg Atorvastatin Calcium (Lipitor) 20 mg PO DIN [facility] Last Admin: 12/22/18 18:34 Dose: 20 mg Budesonide (Pulmicort Respules) 0.5 mg IH [id number] [facility] Last Admin: 12/22/18 19:38 Dose: 0.5 mg Collagenase (Santyl) 0 gm TOP BID [facility] Last Admin: 12/22/18 18:34 Dose: Not Given Cyanocobalamin (Vitamin B12 1000 Mcg/Ml Inj) 1,000 mcg IM DAILY [facility] Last Admin: 12/22/18 09:27 Dose: 1,000 mcg Escitalopram Oxalate (Lexapro) 10 mg PO DAILY [facility] Last Admin: 12/22/18 09:27 Dose: 10 mg Furosemide (Lasix) 20 mg IVP ONCE ONE Stop: 12/23/18 17:53 Hydrochlorothiazide (Hydrodiuril) 25 mg PO DAILY [facility] Last Admin: 12/22/18 09:27 Dose: 25 mg Methylprednisolone (Solu-Medrol) 30 mg IVP Q12 [facility] Last Admin: 12/22/18 09:26 Dose: 30 mg Metoprolol Tartrate (Lopressor) 25 mg PO BID [facility] Last Admin: 12/22/18 18:34 Dose: 25 mg Pantoprazole Sodium (Protonix Ec Tab) 20 mg PO 0600 [facility] Pregabalin (Lyrica) 50 mg PO HS [facility] Last Admin: 12/21/18 22:28 Dose: 50 mg - Labs Labs: 12/22/18 06:11 12/22/18 06:11 PT 10.8 SECONDS (9.4-12.5) 12/19/18 14:50 INR 0.97 12/19/18 14:50 APTT 33.9 Seconds (26.9-38.3) 12/19/18 14:50 Assessment and Plan - Assessment and Plan (Free Text) Plan: Pt seen and examined by me. I have reviewed the note of the director medical economics and I agree with it. I have discussed the assessment and plan with the resident. I have reviewed the medications and the last labs.
[2018-12-22] MEDS ORDERED: Barium Sulfate Susp 2.1% w/v, 2.0% w/w 450 mL Bottle PO ONE (13:03)
--- NOTE | 2018-12-22 22:10 | PN ---
DATE: 12/22/2018 This is [facility]'s hospital visit on the medical floor. For Dr. Pardo. SUBJECTIVE: The patient is a 78-year-old female, seen sitting up in the bed with her at the bedside, now improved from her exacerbation of COPD; however, she has significant anemic indices for which we recommended transfusion as per Dr. Pardo. She is also status post triple bypass surgery with ASCVD as another reason for transfusion as anemic indices can potentially cause her hypoxemic event to be precipitated. She is also undergoing GI evaluation at this time with further testing as indicated. Otherwise, she appears in no acute distress at this visit. OBJECTIVE: VITAL SIGNS: Temperature 98.3, pulse 80, respirations 20, blood pressure 149/70, and pulse ox of 95%. HEENT: Unremarkable. NECK: Supple. HEART: Regular rate, 1/6 systolic ejection murmur. LUNGS: Decreased breath sounds, occasional rhonchi. ABDOMEN: Obese, soft, and nontender. EXTREMITIES: Faint 1+ edema. NEUROLOGIC: Awake and alert. LABORATORY DATA: The patient's labs were done. White blood cell count of 6, hemoglobin 7.2, hematocrit of 23.6, and platelet count of 210,000. Metabolic panel showing carbon dioxide of 35, creatinine is 0.6, and nonfasting glucose of 126. AST of 37, otherwise normal metabolic panel with other testing pending. ASSESSMENT: For this patient is that of symptomatic anemia, atherosclerotic cardiovascular disease, status post coronary artery bypass graft, history of chronic obstructive pulmonary disease exacerbation now, degenerative disk disease, history of breast cancer, history of compression fracture T5-T7, sacral and healed decubiti, and pulmonary hypertension. 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 She had PET/CT scan in 10/2017, which showed no focal FDG-avid masses or adenopathy in the thorax. No significant adenopathy. Localized activity at the region of the cecum with colonoscopy recommended at that time. PLAN: For this patient after conversation with Dr. Pardo is to transfuse 2 units of packed red blood cells slowly over 3 hours each unit. We will also give Lasix between 2 units of packed cells. We will also ask for tumor markers to be done with continuation of her present medical regimen. The patient is also be out of bed to the chair with physiotherapy as per Dr. Mullen. This is a complex patient with a comprehensive medically necessary and appropriate visit carried out in excess of 45 minutes with the patient and her 's questions answered to their satisfaction. Aime King MD
--- NOTE | 2018-12-23 01:04 | PN ---
DATE: 12/22/2018 The patient has been admitted to the hospital because of acute COPD. She said she is feeling better. She is on Brovana and Pulmicort. She was advised to get out of bed to chair. I will discontinue telemetry. The patient is on Lyrica for neuropathy. She has been started on Norvasc for her hypertension which was uncontrolled. She is on Lipitor for dyslipidemia and coronary artery disease. She is going to be on aspirin for her coronary artery disease. The patient is going to get GI evaluation. She has been seen by Dr. Parod for her breast cancer. The patient has a sacral pressure ulcer that is about 5 cm. The patient was seen and examined. I do agree with the note of the medical laboratory technical officer. I was involved in the plan of care. Michael Mullen MD
[2018-12-23 02:58] LABS: MCH 32.9 pg (27.0-33.0); MCV 99.1 fL (80.0-100.0)
--- NOTE | 2018-12-23 04:20 | CON ---
DATE: 12/22/2018 HISTORY OF PRESENT ILLNESS: A 78-year-old female well known to [facility], seen at bedside for consultation, evaluation, and management of deep tissue injuries to both heels. The patient is resting comfortably and states she is breathing much better than when she first arrived at the hospital. PAST MEDICAL HISTORY: Significant for acute chronic obstructive pulmonary disease, hyperlipidemia, anemia, pulmonary hypertension, metastatic breast cancer, and stage III sacral ulceration. MEDICATIONS: All medications noted in MAR. ALLERGIES: THE PATIENT HAS NO KNOWN DRUG ALLERGIES. PAST SURGICAL HISTORY: Includes kyphoplasty, colectomy, and right lumpectomy. VITAL SIGNS: Revealed a temperature of 98.3, pulse rate of , blood pressure of 149/70, respiratory rate of 20. LABORATORY FINDINGS: Reveal a white count of 6, hemoglobin of 7.2, hematocrit of 23.6, platelet count of 210. OBJECTIVE: Nonpalpable pedal pulses noted bilaterally. Absent pedal hair growth noted bilaterally. +2 nonpitting lower extremity edema noted bilaterally. Capillary refilling time is delayed x10. Lower extremity skin presents thin, shiny, and discolored. There is decreased protective sensation noted using 5.07 g monofilament wire testing. There is noted to be resolving deep tissue injuries to both heels, however, there are no active lesions. There is no ecchymosis. There is no drainage. There are no signs of acute bacterial infection. ASSESSMENT: Resolved deep tissue injuries to both heels with no clinical signs of infection seen. PLAN: The patient was seen and evaluated. Her heels were cleansed with normal sterile saline and application of Xeroform, sterile 4 x 4, abdominal pad, and a dry sterile dressing was applied. We will order foam Multi-Podus boots to be used at all times when in bed. The patient was encouraged to attempt physical therapy as tolerated, however, she states that she has not walked in the past several months. The patient will be seen and followed while in house. Angel Denson DPM [facility]
[2018-12-23 06:22] LABS: LYMPH # 0.4 (1.2-3.4); LYMPH % 6.5 % (22.0-35.0); MEAN CELL VOLUME 94.5 fl (80.0-105.0); MEAN CORPUSCULAR HGB CONC 31.7 g/dl (31.0-37.0); MEAN PLATELET VOLUME 9.6 fl (7.0-11.0); MONO # 0.3 (0.1-0.6); MONO % 6.3 % (1.0-6.0); RBC 3.1 10^6/uL (3.5-6.1); RED CELL DISTRIBUTION WIDTH 20.9 % (11.5-14.5); WHITE BLOOD COUNT 5.4 10^3/uL (4.5-11.0)
[2018-12-23 06:32] LABS: ALB/GLOB RATIO 1.1 (1.1-1.8); ALBUMIN 2.8 g/dL (3.0-4.8); ALT/SGPT 28 U/L (7-56); AST/SGOT 31 U/L (14-36); BLOOD UREA NITROGEN 19 mg/dL (7-21); CALCIUM 9.5 mg/dL (8.4-10.5); GFR NON-AFRICAN AMERICAN > 60
[2018-12-23 06:34] LABS: HEMOGLOBIN 9.3 g/dL (12.0-16.0)
[2018-12-23] MEDS ORDERED: Barium Sulfate Susp 2.1% w/v, 2.0% w/w 450 mL Bottle PO ONE (09:30)
[2018-12-23] MEDS: Arformoterol 15 mcg/2 ml Inh Sol IH SCH ×2 (09:59→21:10)
[2018-12-23] MEDS: Albuterol-Ipratrop 3 mg / 0.5 (3 ml) UD IH SCH ×3 (10:00→21:10)
[2018-12-23] MEDS: MethylPREDNISolone 40 mg Vial IVP SCH (10:00)
[2018-12-23] MEDS: Budesonide 0.5 mg/2 ml Inhal Susp UD IH SCH ×2 (10:03→21:10)
[2018-12-23] MEDS: Collagenase 250 Units/gm Ointment(30 gm) TOP SCH ×2 (11:00→19:20)
[2018-12-23] MEDS ORDERED: Iohexol 350 MG/100 ML VIAL ONE (11:42)
--- NOTE | 2018-12-23 12:19 | CP.PCM.PN ---
<Rolo Ventura - Last Filed: 12/23/18 12:15> Subjective - Date & Time of Evaluation Date of Evaluation: 12/23/18 Time of Evaluation: 07:55 - Subjective Subjective: Rolo Ventura D.O. PGY-3, Internal Medicine Resident, Dr. Mullen's Service, Progress Note 78-year-old female with a past medical history of COPD, previous breast cancer, acute kidney injury, COPD, CAD status post CABG, DJD, T5 compression fracture who presents for complaints of worsening shortness of breath. Patient was seen and examined at bedside. States breathing improved. Wants to try and walk again. Weak however. Objective - Vital Signs/Intake and Output Vital Signs (last 24 hours): Temp Pulse Resp BP Pulse Ox 97.6 F 73 16 171/79 H 100 12/23/18 06:00 12/23/18 06:00 12/23/18 06:00 12/23/18 10:00 12/23/18 06:00 Intake and Output: 12/23/18 12/23/18 06:59 18:59 Intake Total 353 Output Total 700 Balance -347 - Medications Medications: Current Medications Albuterol/Ipratropium (Duoneb 3 Mg/0.5 Mg (3 Ml) Ud) 3 ml IH TIDRESP [facility] Last Admin: 12/23/18 10:00 Dose: 3 ml Albuterol/Ipratropium (Duoneb 3 Mg/0.5 Mg (3 Ml) Ud) 3 ml IH [id number] PRN PRN Reason: Shortness of Breath Last Admin: 12/20/18 10:26 Dose: 3 ml Amlodipine Besylate (Norvasc) 5 mg PO DAILY [facility] Last Admin: 12/23/18 10:00 Dose: 5 mg Arformoterol Tartrate (Brovana) 15 mcg IH [id number] [facility] Last Admin: 12/23/18 09:59 Dose: 15 mcg Aspirin (Ecotrin) 81 mg PO DAILY [facility] Last Admin: 12/23/18 10:00 Dose: 81 mg Atorvastatin Calcium (Lipitor) 20 mg PO DIN [facility] Last Admin: 12/22/18 18:34 Dose: 20 mg Budesonide (Pulmicort Respules) 0.5 mg IH [id number] [facility] Last Admin: 12/23/18 10:03 Dose: 0.5 mg Collagenase (Santyl) 0 gm TOP BID [facility] Last Admin: 12/22/18 18:34 Dose: Not Given Cyanocobalamin (Vitamin B12 1000 Mcg/Ml Inj) 1,000 mcg IM DAILY [facility] Last Admin: 12/23/18 10:01 Dose: 1,000 mcg Escitalopram Oxalate (Lexapro) 10 mg PO DAILY [facility] Last Admin: 12/22/18 09:27 Dose: 10 mg Furosemide (Lasix) 20 mg IVP ONCE ONE Stop: 12/23/18 17:53 Hydrochlorothiazide (Hydrodiuril) 25 mg PO DAILY [facility] Last Admin: 12/23/18 10:00 Dose: 25 mg Methylprednisolone (Solu-Medrol) 30 mg IVP Q12 [facility] Last Admin: 12/23/18 10:00 Dose: 30 mg Metoprolol Tartrate (Lopressor) 25 mg PO BID [facility] Last Admin: 12/22/18 18:34 Dose: 25 mg Pantoprazole Sodium (Protonix Ec Tab) 20 mg PO 0600 [facility] Potassium Chloride (K-Dur 20 Meq Er Tab) 40 meq PO Q8H [facility] Stop: 12/23/18 15:01 Pregabalin (Lyrica) 50 mg PO HS [facility] Last Admin: 12/22/18 22:04 Dose: 50 mg - Labs Labs: 12/23/18 06:00 12/23/18 06:00 PT 10.8 SECONDS (9.4-12.5) 12/19/18 14:50 INR 0.97 12/19/18 14:50 APTT 33.9 Seconds (26.9-38.3) 12/19/18 14:50 - Constitutional Appears: Chronically Ill, Please elderly female - Head Exam Head Exam: ATRAUMATIC, NORMOCEPHALIC - Eye Exam Eye Exam: EOMI. absent: Scleral icterus - ENT Exam ENT Exam: Mucous Membranes Moist - Neck Exam Neck Exam: Normal Inspection - Respiratory Exam Respiratory Exam: improved air movement - Cardiovascular Exam Cardiovascular Exam: +S1, +S2. absent: Gallop, Rubs - GI/Abdominal Exam GI & Abdominal Exam: Soft, Normal Bowel Sounds. absent: Distended, Tenderness - Extremities Exam Extremities Exam: absent: Tenderness - Neurological Exam Neurological Exam: Awake, Alert - Skin Skin Exam: Dry, Warm Assessment and Plan - Assessment and Plan (Free Text) Assessment: 78-year-old female with a past medical history of COPD, previous breast cancer, acute kidney injury, COPD, CAD status post CABG, DJD, T5 compression fracture who presents for complaints of worsening shortness of breath. Plan: 1. Acute COPD exacerbation 2. CAD status post CABG 3. Hypertension 4. Hyperlipidemia 5. Neuropathy 6. Macrocytic anemia 7. Anxiety 8. Sacral decubiti 9. Hypokalemia Breathing has improved. Pulmonology following, the recommendations are appreciated. Currently continues on Brovana, Pulmicort, scheduled and as needed nebulizers, Solu-Medrol 30 every 12 hours will be dropped to 30 daily. Hematology/oncology following for history of breast cancer as well as this chronic anemia, currently undergoing work-up. Status post 2 units of blood with appropriate rise in hemoglobin 7.2 to 9.3. Currently receiving intramuscular B12 as well. Continues on aspirin and Lipitor for her CAD. Blood pressure has improved since we started Norvasc. Also continue with home management as well. Lyrica on for her neuropathy. GI has evaluated the patient and ordered a CT a bdomen and pelvis which we will follow-up. Their recommendations have been reviewed and appreciated. Continue with wound care for sacral decubiti. For her hypokalemia we will replete. Continue protein supplementation Patient was seen and examined and case discussed with attending physician at length. <Michael Mullen S - Last Filed: 12/23/18 16:12> Objective - Vital Signs/Intake and Output Vital Signs (last 24 hours): Temp Pulse Resp BP Pulse Ox 98 F 86 20 166/68 H 95 12/23/18 14:00 12/23/18 14:00 12/23/18 14:00 12/23/18 14:00 12/23/18 14:00 Intake and Output: 12/23/18 12/23/18 06:59 18:59 Intake Total 353 480 Output Total 700 1000 Balance -347 -520 - Medications Medications: Current Medications Albuterol/Ipratropium (Duoneb 3 Mg/0.5 Mg (3 Ml) Ud) 3 ml IH TIDRESP [facility] Last Admin: 12/23/18 14:23 Dose: 3 ml Albuterol/Ipratropium (Duoneb 3 Mg/0.5 Mg (3 Ml) Ud) 3 ml IH [id number] PRN PRN Reason: Shortness of Breath Last Admin: 12/20/18 10:26 Dose: 3 ml Amlodipine Besylate (Norvasc) 5 mg PO DAILY [facility] Last Admin: 12/23/18 10:00 Dose: 5 mg Arformoterol Tartrate (Brovana) 15 mcg IH [id number] [facility] Last Admin: 12/23/18 09:59 Dose: 15 mcg Aspirin (Ecotrin) 81 mg PO DAILY [facility] Last Admin: 12/23/18 10:00 Dose: 81 mg Atorvastatin Calcium (Lipitor) 20 mg PO DIN [facility] Last Admin: 12/22/18 18:34 Dose: 20 mg Budesonide (Pulmicort Respules) 0.5 mg IH [id number] [facility] Last Admin: 12/23/18 10:03 Dose: 0.5 mg Collagenase (Santyl) 0 gm TOP BID [facility] Last Admin: 12/22/18 18:34 Dose: Not Given Cyanocobalamin (Vitamin B12 1000 Mcg/Ml Inj) 1,000 mcg IM DAILY [facility] Last Admin: 12/23/18 10:01 Dose: 1,000 mcg Escitalopram Oxalate (Lexapro) 10 mg PO DAILY [facility] Last Admin: 12/23/18 10:15 Dose: 10 mg Furosemide (Lasix) 20 mg IVP ONCE ONE Stop: 12/23/18 17:53 Hydrochlorothiazide (Hydrodiuril) 25 mg PO DAILY [facility] Last Admin: 12/23/18 10:00 Dose: 25 mg Methylprednisolone (Solu-Medrol) 30 mg IVP DAILY [facility] Metoprolol Tartrate (Lopressor) 25 mg PO BID [facility] Last Admin: 12/23/18 13:52 Dose: 25 mg Pantoprazole Sodium (Protonix Ec Tab) 20 mg PO 0600 [facility] Pregabalin (Lyrica) 50 mg PO HS [facility] Last Admin: 12/22/18 22:04 Dose: 50 mg - Labs Labs: 12/23/18 06:00 12/23/18 06:00 PT 10.8 SECONDS (9.4-12.5) 12/19/18 14:50 INR 0.97 12/19/18 14:50 APTT 33.9 Seconds (26.9-38.3) 12/19/18 14:50 Assessment and Plan - Assessment and Plan (Free Text) Plan: Pt seen and examined by me. I have reviewed the note of the medical device sales consultant and I agree with it. I have discussed the assessment and plan with the resident. I have reviewed the medications and the last labs.
--- NOTE | 2018-12-23 12:30 | CT ---
Date of service: 12/23/2018 PROCEDURE: CT Abdomen and Pelvis with contrast HISTORY: anemia, hx of gastric, duodneal, colonic polyps COMPARISON: CT pelvis dated 07/28/2018; PET-CT dated 11/14/2017 TECHNIQUE: Contrast dose: 100 mL Omnipaque 350 Radiation dose: Total exam DLP = 265.4 mGy-cm. This CT exam was performed using one or more of the following dose reduction techniques: Automated exposure control, adjustment of the mA and/or kV according to patient size, and/or use of iterative reconstruction technique. FINDINGS: LOWER THORAX: Partially imaged catheter tips from chest port and dialysis catheter. Prior sternotomy and CABG. Cardiomegaly. Coronary arterial and valvular calcifications. Right larger than left small bilateral pleural effusions with subjacent atelectasis. LIVER: Hepatic steatosis. Tiny scattered hepatic cysts. No gross lesion or ductal dilatation. GALLBLADDER AND BILE DUCTS: Cholelithiasis without gallbladder wall thickening or pericholecystic fluid PANCREAS: Unremarkable. No gross lesion or ductal dilatation. SPLEEN: Unremarkable. ADRENALS: Unremarkable. No mass. KIDNEYS AND URETERS: 4.6 cm right upper pole cyst. 2.9 cm left lower pole cyst. No hydronephrosis. No solid mass. VASCULATURE: Unremarkable. No aortic aneurysm. No aortic atherosclerotic calcification or mural plaque present. BOWEL: Gastrostomy tube in place. Colonic diverticulosis. No obstruction. No gross mural thickening. APPENDIX: No findings to suggest acute appendicitis. PERITONEUM: Subcutaneous abdominal wall granulomas, likely from prior injections. No free fluid. No free air. LYMPH NODES: Unremarkable. No enlarged lymph nodes. BLADDER: Mildly distended around [place]ios catheter with a small amount of air anteriorly, likely from prior instrumentation REPRODUCTIVE: Prior hysterectomy. BONES: Multilevel spinal degenerative changes. No acute fracture. OTHER FINDINGS: None. IMPRESSION: Small right larger than left bilateral pleural effusions with subjacent atelectasis. Minimal cholelithiasis without wall thickening or pericholecystic fluid. Additional stable findings as above.
--- NOTE | 2018-12-23 12:56 | PN ---
DATE: 12/23/2018 PULMONARY PROGRESS NOTE SUBJECTIVE: The patient was seen and examined at bedside. She is on oxygen. She is receiving inhalation treatments with Brovana and budesonide, and she is also on Solu-Medrol 30 mg every 12 hours. She says that any exertion causes her shortness of breath. PHYSICAL EXAMINATION: VITAL SIGNS: Her temperature is 98.1, pulse is 84, respirations 20, blood pressure is 160/90, oxygen saturation on nasal cannula is 94%. HEENT: Head is normocephalic and atraumatic. NECK: Supple with no jugular vein distention. CARDIOVASCULAR: S1 and S2. No S3. A 2/6 systolic ejection murmur. PULMONARY: Diminished breath sounds at both bases with prolonged expiration and scattered rhonchi. GASTROINTESTINAL: Soft and nontender. No organomegaly. EXTREMITIES: Mild edema. No cyanosis. No clubbing. SKIN: Positive for sacral decubitus. No rashes. NEUROLOGIC: Limited at the present time. ASSESSMENT: 1. Exacerbation of severe chronic obstructive pulmonary disease. 2. Acute bronchitis. 3. Chronic respiratory insufficiency. 4. Anemia. PLAN: The patient is comfortable at rest; however, any exertion causes her to be short of breath. There is no acute bronchospasm anymore. Her pulmonary status is gradually improving. We will continue with current nebulizer treatment and low-dose intravenous steroids. We will follow closely. Gumaro Fofana MD
[2018-12-23] MEDS: Potassium Chloride 20 mEq ER Tab PO SCH ×2 (13:14→19:19)
--- NOTE | 2018-12-23 13:53 | PN ---
DATE: 12/22/2018 This is [facility]'s hospital visit on the medical floor. For Dr. Pardo. SUBJECTIVE: The patient is a 78-year-old female seen lying awake in bed in no acute distress. This visit is status post transfusion of 2 units of packed red blood cells yesterday with good effect and also status post evaluation by correctional therapy director for heel ulcers. She is now resting comfortably with her COPD exacerbation improved and her anemic indices now improved. OBJECTIVE/PHYSICAL EXAMINATION: VITAL SIGNS: Temperature 97.6, pulse 73, respirations 16, blood pressure 154/62 and pulse oximetry 100%. HEENT: Unremarkable. NECK: Supple. HEART: Regular rate. Occasional ectopic beats. LUNGS: Normal decreased breath sounds. Rare rhonchi. ABDOMEN: Obese, soft and nontender. EXTREMITIES: Faint +1 edema. NEUROLOGIC: Awake and alert. SKIN: With stage II to III decubitus ulcer of her sacrum and heel ulcers now improving with dressings on. LABORATORY DATA: The patient's labs were done, white blood cell count of 5.4, hemoglobin 9.3 improved from 7.2 yesterday, hematocrit of 29.3 and platelet count of 185,000. With a metabolic panel showing a potassium of 3.4, carbon dioxide of 38, fasting glucose 125, total protein 5.3 with CEA value of 3.8 and other breast marker values pending. ASSESSMENT: For this the patient is that of symptomatic anemia now improved, status post transfusion, exacerbation of chronic obstructive pulmonary disease, atherosclerotic cardiovascular disease status post triple bypass surgery, history of breast cancer, compression fracture history, decubitus ulcer and pulmonary hypertension. PLAN: For this patient is to continue present medical regimen. We will monitor clinically. Repeat her labs in the morning with further recommendations as indicated. Aime King MD
--- NOTE | 2018-12-23 18:24 | CP.PCM.PN ---
Subjective - Date & Time of Evaluation Date of Evaluation: 12/23/18 Time of Evaluation: 12:15 - Subjective Subjective: Patient comfortable no complaints of any abdominal discomfort. Tolerating diet Objective - Vital Signs/Intake and Output Vital Signs (last 24 hours): Temp Pulse Resp BP Pulse Ox 98 F 86 20 166/68 H 95 12/23/18 14:00 12/23/18 14:00 12/23/18 14:00 12/23/18 14:00 12/23/18 14:00 Intake and Output: 12/23/18 12/23/18 06:59 18:59 Intake Total 353 480 Output Total 700 1000 Balance -347 -520 - Medications Medications: Current Medications Albuterol/Ipratropium (Duoneb 3 Mg/0.5 Mg (3 Ml) Ud) 3 ml IH TIDRESP [facility] Last Admin: 12/23/18 14:23 Dose: 3 ml Albuterol/Ipratropium (Duoneb 3 Mg/0.5 Mg (3 Ml) Ud) 3 ml IH [id number] PRN PRN Reason: Shortness of Breath Last Admin: 12/20/18 10:26 Dose: 3 ml Amlodipine Besylate (Norvasc) 5 mg PO DAILY [facility] Last Admin: 12/23/18 10:00 Dose: 5 mg Arformoterol Tartrate (Brovana) 15 mcg IH [id number] [facility] Last Admin: 12/23/18 09:59 Dose: 15 mcg Aspirin (Ecotrin) 81 mg PO DAILY [facility] Last Admin: 12/23/18 10:00 Dose: 81 mg Atorvastatin Calcium (Lipitor) 20 mg PO DIN [facility] Last Admin: 12/22/18 18:34 Dose: 20 mg Budesonide (Pulmicort Respules) 0.5 mg IH [id number] [facility] Last Admin: 12/23/18 10:03 Dose: 0.5 mg Collagenase (Santyl) 0 gm TOP BID [facility] Last Admin: 12/22/18 18:34 Dose: Not Given Cyanocobalamin (Vitamin B12 1000 Mcg/Ml Inj) 1,000 mcg IM DAILY [facility] Last Admin: 12/23/18 10:01 Dose: 1,000 mcg Escitalopram Oxalate (Lexapro) 10 mg PO DAILY [facility] Last Admin: 12/23/18 10:15 Dose: 10 mg Hydrochlorothiazide (Hydrodiuril) 25 mg PO DAILY [facility] Last Admin: 12/23/18 10:00 Dose: 25 mg Methylprednisolone (Solu-Medrol) 30 mg IVP DAILY [facility] Metoprolol Tartrate (Lopressor) 25 mg PO BID [facility] Last Admin: 12/23/18 13:52 Dose: 25 mg Pantoprazole Sodium (Protonix Ec Tab) 20 mg PO 0600 [facility] Pregabalin (Lyrica) 50 mg PO HS [facility] Last Admin: 12/22/18 22:04 Dose: 50 mg - Labs Labs: 12/23/18 06:00 12/23/18 06:00 PT 10.8 SECONDS (9.4-12.5) 12/19/18 14:50 INR 0.97 12/19/18 14:50 APTT 33.9 Seconds (26.9-38.3) 12/19/18 14:50 Assessment and Plan - Assessment and Plan (Free Text) Assessment: Assessment and Plan: Patient is a 78-year-old female with a past medical history of COPD, previous br east cancer, acute kidney injury, COPD, CAD status post CABG, DJD, T5 compression fracture who was admitted for evaluation and treatment of worsening shortness of breath. 1, Normocytic Anemia 2. Borderline B12 continue suupplement 3. Large hiatus hernia History of a large hiatus hernia and ulcerated hyperplastic polyp removed by snare cautery. Patient has been on PPI. Likely [place] ulcers. 4. Hx of Colonic Polyps Multiple colon polyps. Status post a EMR and also status post right hemic olectomy. Patient did have a large villous adenoma removed surgically from the cecum by right hemicolectomy. Patient also had piecemeal polypectomies. 5. History of breast cancer. Status post lumpectomy radiation therapy had completed 4 cycles of chemo Patient has been followed by Dr. Pardo, oncologist Requested CT scan of the abdomen and pelvis with p.o. and IV contrast to further evaluate Continue Protonix Close follow-up of hemoglobin hematocrit. Discussed with the patient's who was at bedside. Discussed with the patient's daughter earlier
[2018-12-23] MEDS: Pantoprazole 20 mg EC Tab PO SCH (19:18)
--- NOTE | 2018-12-23 19:30 | PN ---
DATE: 12/23/2018 SUBJECTIVE: The patient was seen and examined. I do agree with the note of the medical massage therapist. I was involved in the plan of care. The patient has acute COPD exacerbation. She is improving. She is currently on Brovana and Pulmicort for her COPD. She is going to continue with Solu-Medrol and she is being tapered. The patient is being followed by Oncology Dr. Pardo, I appreciate his input. The patient was given 2 units of transfusion because of the chronic anemia. The hemoglobin has improved. The patient is also getting vitamin B12 for her deficiency. The patient is on aspirin for her coronary artery disease. She is going to continue with Lipitor for her dyslipidemia. She is on Norvasc for her hypertension. Her blood pressure has improved after the Norvasc was given. She had a pressure ulcer that is being treated locally. The patient was seen and examined. I do agree with the note of the medical massage therapist. Michael Mullen MD
[2018-12-24] MEDS: Pantoprazole 20 mg EC Tab PO SCH (06:16)
[2018-12-24] MEDS: Budesonide 0.5 mg/2 ml Inhal Susp UD IH SCH (07:57)
[2018-12-24] MEDS: Arformoterol 15 mcg/2 ml Inh Sol IH SCH ×2 (07:57→20:15)
[2018-12-24] MEDS: Albuterol-Ipratrop 3 mg / 0.5 (3 ml) UD IH SCH ×3 (07:57→20:15)
[2018-12-24 08:06] LABS: EOS # 0.1 (0.0-0.7); EOS % 1.2 % (1.5-5.0); HEMOGLOBIN 10.2 g/dL (12.0-16.0); LYMPH # 0.6 (1.2-3.4); LYMPH % 8.3 % (22.0-35.0); MEAN CELL VOLUME 96.5 fl (80.0-105.0); MEAN CORPUSCULAR HEMOGLOBIN 30.1 pg (25.0-35.0); MEAN CORPUSCULAR HGB CONC 31.2 g/dl (31.0-37.0); MEAN PLATELET VOLUME 9.9 fl (7.0-11.0); MONO # 0.6 (0.1-0.6); MONO % 8.6 % (1.0-6.0); RBC 3.39 10^6/uL (3.5-6.1); RED CELL DISTRIBUTION WIDTH 20.3 % (11.5-14.5); WHITE BLOOD COUNT 6.7 10^3/uL (4.5-11.0)
--- NOTE | 2018-12-24 08:08 | CP.PCM.PN ---
<Rolo Ventura - Last Filed: 12/24/18 11:02> Subjective - Date & Time of Evaluation Date of Evaluation: 12/24/18 Time of Evaluation: 04:55 - Subjective Subjective: Rolo Ventura D.O. PGY-3, Internal Medicine Resident, Dr. Mullen's Service, Progress Note 78-year-old female with a past medical history of COPD, previous breast cancer, acute kidney injury, COPD, CAD status post CABG, DJD, T5 compression fracture who presented for complaints of worsening shortness of breath and was found to have a COPD exacerbation. Patient was seen and examined at bedside. Was able to get out of bed and into the chair yesterday. Still concerned about walking. Wants to get better. Objective - Vital Signs/Intake and Output Vital Signs (last 24 hours): Temp Pulse Resp BP Pulse Ox 97.8 F 71 20 170/76 H 99 12/23/18 22:00 12/23/18 22:00 12/23/18 22:00 12/23/18 22:00 12/23/18 22:00 Intake and Output: 12/24/18 12/24/18 06:59 18:59 Intake Total 820 Output Total 2400 Balance -1580 - Medications Medications: Current Medications Albuterol/Ipratropium (Duoneb 3 Mg/0.5 Mg (3 Ml) Ud) 3 ml IH TIDRESP [facility] Last Admin: 12/24/18 07:57 Dose: 3 ml Albuterol/Ipratropium (Duoneb 3 Mg/0.5 Mg (3 Ml) Ud) 3 ml IH [id number] PRN PRN Reason: Shortness of Breath Last Admin: 12/20/18 10:26 Dose: 3 ml Amlodipine Besylate (Norvasc) 10 mg PO DAILY [facility] Arformoterol Tartrate (Brovana) 15 mcg IH [id number] [facility] Last Admin: 12/24/18 07:57 Dose: 15 mcg Aspirin (Ecotrin) 81 mg PO DAILY [facility] Last Admin: 12/23/18 10:00 Dose: 81 mg Atorvastatin Calcium (Lipitor) 20 mg PO DIN [facility] Last Admin: 12/23/18 19:18 Dose: 20 mg Budesonide (Pulmicort Respules) 0.5 mg IH [id number] [facility] Last Admin: 12/24/18 07:57 Dose: 0.5 mg Collagenase (Santyl) 0 gm TOP BID [facility] Last Admin: 12/23/18 19:20 Dose: Not Given Cyanocobalamin (Vitamin B12 1000 Mcg/Ml Inj) 1,000 mcg IM DAILY [facility] Last Admin: 12/23/18 10:01 Dose: 1,000 mcg Escitalopram Oxalate (Lexapro) 10 mg PO DAILY [facility] Last Admin: 12/23/18 10:15 Dose: 10 mg Hydrochlorothiazide (Hydrodiuril) 25 mg PO DAILY [facility] Last Admin: 12/23/18 10:00 Dose: 25 mg Methylprednisolone (Solu-Medrol) 30 mg IVP DAILY [facility] Metoprolol Tartrate (Lopressor) 25 mg PO BID [facility] Last Admin: 12/23/18 19:18 Dose: 25 mg Pantoprazole Sodium (Protonix Ec Tab) 20 mg PO 0600 [facility] Last Admin: 12/24/18 06:16 Dose: 20 mg Pregabalin (Lyrica) 50 mg PO HS [facility] Last Admin: 12/23/18 21:24 Dose: 50 mg - Labs Labs: 12/23/18 06:00 12/23/18 06:00 PT 10.8 SECONDS (9.4-12.5) 12/19/18 14:50 INR 0.97 12/19/18 14:50 APTT 33.9 Seconds (26.9-38.3) 12/19/18 14:50 - Constitutional Appears: Chronically Ill, Please elderly female - Head Exam Head Exam: ATRAUMATIC, NORMOCEPHALIC - Eye Exam Eye Exam: EOMI. absent: Scleral icterus - ENT Exam ENT Exam: Mucous Membranes Moist - Neck Exam Neck Exam: Normal Inspection - Respiratory Exam Respiratory Exam: improved air movement - Cardiovascular Exam Cardiovascular Exam: +S1, +S2. absent: Gallop, Rubs - GI/Abdominal Exam GI & Abdominal Exam: Soft, Normal Bowel Sounds. absent: Distended, Tenderness - Extremities Exam Extremities Exam: absent: Tenderness - Neurological Exam Neurological Exam: Awake, Alert, lower extremity has some numbness but has intact propioception - Skin Skin Exam: Dry, Warm Assessment and Plan - Assessment and Plan (Free Text) Assessment: 78-year-old female with a past medical history of COPD, previous breast cancer, acute kidney injury, COPD, CAD status post CABG, DJD, T5 compression fracture who presented for complaints of worsening shortness of breath and was found to have a COPD exacerbation. Plan: 1. Acute COPD exacerbation 2. CAD status post CABG 3. Hypertension 4. Hyperlipidemia 5. Neuropathy 6. Macrocytic anemia 7. Anxiety 8. Sacral decubiti 9. Hypokalemia 10. Bed bound 11. Breast CA Breathing mildly improving daily. Pulmonary is following and the recommendations have been reviewed and appreciated. We will continue with Solu- Medrol 30 daily as well as Brovana, Pulmicort, scheduled and as needed nebulizers. Hematology oncology following her for her breast CA. She received 2 units of blood. Hemoglobin today is greatly improved to 10.2. Currently undergoing management and treatment by hematology oncology team. We will also continue with intramuscular B12. For her CAD we will continue her aspirin and Lipitor. Her blood pressure has remained somewhat elevated and so we will increase the Norvasc that we recently started to 10 mg and continue HCTZ and metoprolol. For her neuropathy she is currently on Lyrica. She had requested a CAT scan of the abdomen and pelvis which shows small right larger than left bilateral pleural effusions with a subjacent atelectasis, minimal cholelithiasis without wall thickening or pericholecystic fluid, colonic diverticulosis, G-tube in place, prior hysterectomy, prior sternotomy and CABG, and hepatic steatosis. GI recommendations were reviewed and appreciated. Continue with wound care for her sacral decubitus ulcer. Working with physical therapy to try and regain her strength. Hypokalemia was repleted and has resolved. Will start supplemental zinc and vitamin C to encourage wound healing. Encouragement provided. We will continue to clinically. Patient was seen and examined and case discussed with attending physician at length. <Michael Mullen S - Last Filed: 12/24/18 15:05> Objective - Vital Signs/Intake and Output Vital Signs (last 24 hours): Temp Pulse Resp BP Pulse Ox 98.2 F 70 20 158/78 H 93 L 12/24/18 14:00 12/24/18 14:00 12/24/18 14:00 12/24/18 14:00 12/24/18 14:00 Intake and Output: 12/24/18 12/24/18 06:59 18:59 Intake Total 820 680 Output Total 2400 700 Balance -1580 -20 - Medications Medications: Current Medications Albuterol/Ipratropium (Duoneb 3 Mg/0.5 Mg (3 Ml) Ud) 3 ml IH TIDRESP [facility] Last Admin: 12/24/18 13:52 Dose: 3 ml Albuterol/Ipratropium (Duoneb 3 Mg/0.5 Mg (3 Ml) Ud) 3 ml IH [id number] PRN PRN Reason: Shortness of Breath Last Admin: 12/20/18 10:26 Dose: 3 ml Amlodipine Besylate (Norvasc) 10 mg PO DAILY [facility] Last Admin: 12/24/18 10:55 Dose: 10 mg Arformoterol Tartrate (Brovana) 15 mcg IH [id number] [facility] Last Admin: 12/24/18 07:57 Dose: Not Given Ascorbic Acid (Vitamin C Liq) 500 mg PO DAILY [facility] Last Admin: 12/24/18 11:37 Dose: 5 liq Aspirin (Ecotrin) 81 mg PO DAILY [facility] Last Admin: 12/24/18 10:55 Dose: 81 mg Atorvastatin Calcium (Lipitor) 20 mg PO DIN [facility] Last Admin: 12/23/18 19:18 Dose: 20 mg Collagenase (Santyl) 0 gm TOP BID [facility] Last Admin: 12/24/18 10:55 Dose: 1 applic Cyanocobalamin (Vitamin B12 1000 Mcg/Ml Inj) 1,000 mcg IM DAILY [facility] Last Admin: 12/24/18 11:09 Dose: 1,000 mcg Escitalopram Oxalate (Lexapro) 10 mg PO DAILY [facility] Last Admin: 12/24/18 10:55 Dose: 10 mg Hydrochlorothiazide (Hydrodiuril) 25 mg PO DAILY [facility] Last Admin: 12/24/18 10:55 Dose: 25 mg Lisinopril (Zestril) 10 mg PO DAILY [facility] Methylprednisolone (Solu-Medrol) 30 mg IVP DAILY [facility] Last Admin: 12/24/18 10:55 Dose: 30 mg Metoprolol Tartrate (Lopressor) 25 mg PO BID [facility] Last Admin: 12/24/18 10:55 Dose: 25 mg Pantoprazole Sodium (Protonix Ec Tab) 20 mg PO 0600 [facility] Last Admin: 12/24/18 06:16 Dose: 20 mg Pregabalin (Lyrica) 50 mg PO HS [facility] Last Admin: 12/23/18 21:24 Dose: 50 mg Zinc Sulfate (Zinc Sulfate 220 Mg Cap) 220 mg PO DAILY [facility] Last Admin: 12/24/18 11:36 Dose: 220 mg - Labs Labs: 12/24/18 06:45 12/24/18 06:45 PT 10.8 SECONDS (9.4-12.5) 12/19/18 14:50 INR 0.97 12/19/18 14:50 APTT 33.9 Seconds (26.9-38.3) 12/19/18 14:50 Assessment and Plan - Assessment and Plan (Free Text) Plan: Pt seen and examined by me. I have reviewed the note of the medical physics teacher and I agree with it. I have discussed the assessment and plan with the resident. I have reviewed the medications and the last labs.
[2018-12-24 08:19] LABS: ALB/GLOB RATIO 1.1 (1.1-1.8); ALBUMIN 2.9 g/dL (3.0-4.8); ALT/SGPT 28 U/L (7-56); AST/SGOT 30 U/L (14-36); BLOOD UREA NITROGEN 19 mg/dL (7-21); CALCIUM 9.5 mg/dL (8.4-10.5); GFR NON-AFRICAN AMERICAN > 60
[2018-12-24] MEDS: MethylPREDNISolone 40 mg Vial IVP SCH (10:55)
[2018-12-24] MEDS: Collagenase 250 Units/gm Ointment(30 gm) TOP SCH ×2 (10:55→17:08)
[2018-12-24] MEDS: Ascorbic Acid 500 mg/5 ml Liq(50 ml) PO SCH (11:37)
--- NOTE | 2018-12-24 12:17 | CP.PCM.PN ---
Subjective - Date & Time of Evaluation Date of Evaluation: 12/24/18 Time of Evaluation: 12:11 - Subjective Subjective: Podiatry Progress Note: Dr. Denson 78F patient see and examined this AM for resolving b/l heel DTI, R>L. Patient resting comfortably and in NAD. Patient denies any pain to b/l heels at this time. Denies nausea/vomiting/fever. Objective - Vital Signs/Intake and Output Vital Signs (last 24 hours): Temp Pulse Resp BP Pulse Ox 98.1 F 80 20 173/84 H 92 L 12/24/18 06:00 12/24/18 10:55 12/24/18 06:00 12/24/18 10:55 12/24/18 06:00 Intake and Output: 12/24/18 12/24/18 06:59 18:59 Intake Total 820 200 Output Total 2400 Balance -1580 200 - Medications Medications: Current Medications Albuterol/Ipratropium (Duoneb 3 Mg/0.5 Mg (3 Ml) Ud) 3 ml IH TIDRESP [facility] Last Admin: 12/24/18 07:57 Dose: 3 ml Albuterol/Ipratropium (Duoneb 3 Mg/0.5 Mg (3 Ml) Ud) 3 ml IH [id number] PRN PRN Reason: Shortness of Breath Last Admin: 12/20/18 10:26 Dose: 3 ml Amlodipine Besylate (Norvasc) 10 mg PO DAILY [facility] Last Admin: 12/24/18 10:55 Dose: 10 mg Arformoterol Tartrate (Brovana) 15 mcg IH [id number] [facility] Last Admin: 12/24/18 07:57 Dose: 15 mcg Ascorbic Acid (Vitamin C Liq) 500 mg PO DAILY [facility] Last Admin: 12/24/18 11:37 Dose: 5 liq Aspirin (Ecotrin) 81 mg PO DAILY [facility] Last Admin: 12/24/18 10:55 Dose: 81 mg Atorvastatin Calcium (Lipitor) 20 mg PO DIN [facility] Last Admin: 12/23/18 19:18 Dose: 20 mg Collagenase (Santyl) 0 gm TOP BID [facility] Last Admin: 12/24/18 10:55 Dose: 1 applic Cyanocobalamin (Vitamin B12 1000 Mcg/Ml Inj) 1,000 mcg IM DAILY [facility] Last Admin: 12/24/18 11:09 Dose: 1,000 mcg Escitalopram Oxalate (Lexapro) 10 mg PO DAILY [facility] Last Admin: 12/24/18 10:55 Dose: 10 mg Hydrochlorothiazide (Hydrodiuril) 25 mg PO DAILY [facility] Last Admin: 12/24/18 10:55 Dose: 25 mg Methylprednisolone (Solu-Medrol) 30 mg IVP DAILY [facility] Last Admin: 12/24/18 10:55 Dose: 30 mg Metoprolol Tartrate (Lopressor) 25 mg PO BID [facility] Last Admin: 12/24/18 10:55 Dose: 25 mg Pantoprazole Sodium (Protonix Ec Tab) 20 mg PO 0600 [facility] Last Admin: 12/24/18 06:16 Dose: 20 mg Pregabalin (Lyrica) 50 mg PO HS [facility] Last Admin: 12/23/18 21:24 Dose: 50 mg Zinc Sulfate (Zinc Sulfate 220 Mg Cap) 220 mg PO DAILY [facility] Last Admin: 12/24/18 11:36 Dose: 220 mg - Labs Labs: 12/24/18 06:45 12/24/18 06:45 PT 10.8 SECONDS (9.4-12.5) 12/19/18 14:50 INR 0.97 12/19/18 14:50 APTT 33.9 Seconds (26.9-38.3) 12/19/18 14:50 - Constitutional Appears: Non-toxic, No Acute Distress - Head Exam Head Exam: ATRAUMATIC, NORMOCEPHALIC - Extremities Exam Additional comments: Vascular: DP/PT 2/4, CFT < 3 seconds, TG warm to warm, no edema appreciated Ortho: No pain with palpation of b/l heels Neuro: Gross sensation intact Derm: DTI to the R heel at this time, non-blanchable erythema, no open lesions, no ulcerations, no clinical signs of infection, no drainage. - Neurological Exam Neurological Exam: Alert, Awake, Oriented x3 - Psychiatric Exam Psychiatric exam: Normal Affect, Normal Mood - Skin Skin Exam: Warm Assessment and Plan - Assessment and Plan (Free Text) Assessment: 78F with DTI to b/l heels; resolving Plan: Patient seen and examined Discussed patient with Dr. Denson Optifoam applied to R heel at this time Continue to offload heels Multipodus boots Patient stable from podiatry standpoint
--- NOTE | 2018-12-24 16:24 | PN ---
DATE: 12/24/2018 PULMONARY PROGRESS NOTE SUBJECTIVE: The patient was seen and examined at bedside. She is on supplemental oxygen and complaining of shortness of breath on mild exertion. She has also complained today of palpitations after a nebulizer treatment. PHYSICAL EXAMINATION: VITAL SIGNS: Her temperature is 98, pulse 80, respirations 20, pulse oximetry is 92% on room air, blood pressure is 170/84. HEENT: Head is normocephalic and atraumatic. NECK: Supple. There is no jugular vein distention. CARDIOVASCULAR: S1 and S2. No S3. Regular. PULMONARY: Diminished breath sounds at both bases with few end-expiratory wheezes and rhonchi. GASTROINTESTINAL: Soft and nontender. No organomegaly. EXTREMITIES: No pedal edema. No cyanosis. SKIN: No acute skin rash. NEUROLOGIC: Limited at the present time. LABORATORY DATA: Today's blood work was reviewed as well; WBC 6.7, hemoglobin of 10.2. Chemistries, sodium 139, potassium 3.9, chloride 9.6 and albumin is 2.9. ASSESSMENT: 1. Exacerbation of severe chronic obstructive pulmonary disease. 2. Pneumonia. PLAN: The patient is on supplemental oxygen. She is complaining of palpitations. Will use nebulizer treatment. I would review the nebulizer treatment and possibly drop inhalant steroids because the patient is receiving steroids systemically. So the patient is clinically improving; however, still short of breath on minimal exertion. We will discontinue the budesonide by inhalation and advised reducing intravenous steroids and possibly switching to oral prednisone. BiPAP at night will continue as per prior orders. Gumaro Fofana MD
--- NOTE | 2018-12-24 20:03 | PN ---
DATE: 12/24/2018 SUBJECTIVE: The patient was seen and examined. I do agree with the note of the medical clerk. I was involved in the plan of care. The patient had a CT of the abdomen that showed a small right enlargement of the left pleural effusion. The patient is currently comfortable. She has COPD exacerbation that is improving. She has coronary artery disease and is going to continue with her aspirin. She is on Lipitor for dyslipidemia. She is receiving hydrochlorothiazide and metoprolol for her hypertension. The patient has a PEG tube for medications. I am going to restart her on her zinc and vitamin C for wound healing. She currently has a stage 3 pressure ulcer that is about 5 cm in the lower back. The patient had a hemoglobin that has improved from when she first came in. She was anemic and was given two units of transfusion. She is on Norvasc for her hypertension. Her blood pressure remains elevated most likely from the steroids that she is taking. She is on formoterol for her COPD. We will also add a dose of lisinopril to help with her blood pressure. Michael Mullen MD
--- NOTE | 2018-12-24 20:19 | PN ---
DATE: 12/24/2018 This is [facility] visit on the medical floor. For Dr. Pardo. SUBJECTIVE: The patient is a 78-year-old female with family members at the bedside. The patient is resting in bed at this time, in no acute distress, status post transfusion 2 units of packed red blood cells with good effect with the patient feeling a little stronger. However, the patient continues to be treated for her admitting complaints, which was COPD exacerbation. She also has a history of breast cancer that we will now follow. She also has decubitus ulcer of her sacrum with the heel ulcers all improving, as her anemia is also improved after transfusion as above. OBJECTIVE/PHYSICAL EXAMINATION: VITAL SIGNS: Temperature 98.1, pulse 80, respirations 20, blood pressure 173/84 and pulse ox 92%. HEENT: Unremarkable. Tongue is moist. NECK: Supple. HEART: Regular rate. LUNGS: Rare rhonchi. ABDOMEN: Obese, soft and nontender. EXTREMITIES: Faint +1 edema. NEUROLOGIC: Awake and alert. SKIN: Stage II to III decubitus of the sacrum with dressings on, heel ulcer is also dressings on. LABORATORY DATA: The patient's labs were done, white blood cell count is 6.7, hemoglobin now at 10.2 improved from 7.2 prior to transfusion, hematocrit 32.7 and platelet count of 187,000 with a metabolic panel showing a carbon dioxide of 39, chloride of 96 and otherwise normal metabolic panel with a total protein of 5.4. We are still awaiting for a cytometric analysis along with serum protein electrophoresis testing. The patient did have a CT scan of the abdomen and pelvis done yesterday and it was read as small right greater than left bilateral pleural effusions with some adjacent atelectasis, normal cholelithiasis without wall thickening or pericolic fluid with the gastrostomy tube in place and colonic diverticulosis. ASSESSMENT: For this patient, is that of symptomatic anemia now improved, status post transfusion, history of grade II breast cancer, exacerbation of chronic obstructive pulmonary disease, degenerative disc disease, sacral decubitus, healed decubitus, history of compression fractures, pulmonary hypertension, atherosclerosis, coronary artery disease and status post coronary artery bypass graft. PLAN: For this patient is to continue the patient's medical regimen with further recommendations as indicated with prognosis guarded. Also, tumor markers are pending for breast. Aime King MD
[2018-12-24 20:43] LABS: CA 27.29 25 U/mL (<38)
[2018-12-25 01:26] LABS: HEMOGLOBIN A 96.6 Percent (>96.0); HEMOGLOBIN A2 2.4 Percent (1.8-3.5)
--- NOTE | 2018-12-25 02:40 | PN ---
DATE: 12/24/2018 SUBJECTIVE: The patient was seen and evaluated earlier. The patient is comfortable, not in acute distress. Tolerating the diet. PHYSICAL EXAMINATION: VITAL SIGNS: Temperature is 98.2, blood pressure 158/78, respirations 20, and O2 saturation 93%. HEENT: Atraumatic and anicteric. NECK: Supple. HEART: S1 and S2 heard. LUNGS: Bilateral air entry present, reduced at the bases. ABDOMEN: Soft and nontender. NEUROLOGIC: Alert and oriented. LABORATORY DATA: Hemoglobin now come up to 10.2, hematocrit 32.7, WBC of 6.7, platelets 187. The patient did receive two units of packed RBC and hemoglobin has improved. Chemistry showed essentially unremarkable LFTs. CT scan of the abdomen and pelvis then was reviewed and it shows a degenerative spinal disease, gastrostomy, colonic diverticulosis. IMPRESSION: 1. This is 78-year-old patient with the past medical history of chronic obstructive pulmonary disease, history of breast cancer, acute kidney injury, coronary artery disease, coronary artery bypass grafting, degenerative joint disease, and T5 compression fracture in the past who was admitted with worsening shortness of breath. The patient was found to be anemic with hemoglobin of 7.2. It was normocytic anemia and she was transfused two units and hemoglobin has gone up. 2. 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 3. History of large hiatus hernia and had a ulcerative hyperplastic polyp which was removed and large hiatus hernia could be the contributory factor for anemia in view of this George ulcer. Other problems include history of breast cancer, borderline B12 level which was supplemented. RECOMMENDATION: We will continue to closely follow up her care and suggest further management based on the clinical course. The patient would benefit from the elective colonoscopy after further of the patient. I recommend to continue the PPI. Thank you very much for allowing us to participate in the care of the patient. Rubio Burr MD [facility]
[2018-12-25] MEDS: Pantoprazole 20 mg EC Tab PO SCH (06:02)
[2018-12-25 06:42] LABS: EOS # 0.1 (0.0-0.7); EOS % 0.9 % (1.5-5.0); HEMOGLOBIN 10.5 g/dL (12.0-16.0); LYMPH # 0.8 (1.2-3.4); LYMPH % 12.8 % (22.0-35.0); MEAN CELL VOLUME 96.6 fl (80.0-105.0); MEAN CORPUSCULAR HEMOGLOBIN 29.9 pg (25.0-35.0); MEAN PLATELET VOLUME 10.2 fl (7.0-11.0); MONO # 0.5 (0.1-0.6); RBC 3.51 10^6/uL (3.5-6.1); WHITE BLOOD COUNT 6.5 10^3/uL (4.5-11.0)
[2018-12-25 06:54] LABS: ALB/GLOB RATIO 1.2 (1.1-1.8); ALBUMIN 2.9 g/dL (3.0-4.8); ALT/SGPT 33 U/L (7-56); AST/SGOT 28 U/L (14-36); BLOOD UREA NITROGEN 22 mg/dL (7-21); CALCIUM 9.3 mg/dL (8.4-10.5); GFR NON-AFRICAN AMERICAN > 60
[2018-12-25] MEDS: Arformoterol 15 mcg/2 ml Inh Sol IH SCH ×2 (08:21→20:20)
[2018-12-25] MEDS: Albuterol-Ipratrop 3 mg / 0.5 (3 ml) UD IH SCH ×3 (08:22→20:20)
[2018-12-25] MEDS: Ascorbic Acid 500 mg/5 ml Liq(50 ml) PO SCH (10:07)
[2018-12-25] MEDS: MethylPREDNISolone 40 mg Vial IVP SCH (10:09)
[2018-12-25] MEDS: Collagenase 250 Units/gm Ointment(30 gm) TOP SCH ×2 (10:10→17:33)
--- NOTE | 2018-12-25 11:14 | PN ---
DATE: 12/25/2018 PULMONARY PROGRESS NOTE SUBJECTIVE: The patient was seen and examined at bedside. She is on nasal cannula. She states that she still has shortness of breath on mild exertion. The patient was examined together with Dr. Zapata. PHYSICAL EXAMINATION: VITAL SIGNS: Temperature is 98.1, pulse 88, respirations 18, pulse oximetry is 93% on the room air and 99% on nasal cannula. HEENT: Head is normocephalic and atraumatic. NECK: Supple. There is no jugular vein distention. CARDIOVASCULAR: S1 and S2. No S3. Regular. PULMONARY: Diminished breath sounds at both bases, wheeze prolonged expiration and few end expiratory rhonchi. No wheezing. GASTROINTESTINAL: Soft and nontender. No organomegaly. : Within normal limits EXTREMITIES: No pedal edema. No cyanosis. NEUROLOGIC: No focal deficits.SKIN: Dry; intact ASSESSMENT: 1. Exacerbation of chronic obstructive pulmonary disease. 2. Pneumonia. PLAN: I have discussed the case with Dr. Zapata, the pneumonia has resolved, however, the chronic obstructive pulmonary disease and respiratory insufficiency remained quite severe. The plan is for discharge in the next 24 hours on nebulizer treatment and oxygen. Gumaro Fofana MD MTDD
--- NOTE | 2018-12-25 14:14 | CP.PCM.PN ---
<Rolo Ventura - Last Filed: 12/25/18 14:07> Subjective - Date & Time of Evaluation Date of Evaluation: 12/25/18 Time of Evaluation: 06:50 - Subjective Subjective: Rolo Ventura D.O. PGY-3, Internal Medicine Resident, Dr. Mullen's Service, Progress Note 78-year-old female with a past medical history of COPD, previous breast cancer, acute kidney injury, COPD, CAD status post CABG, DJD, T5 compression fracture who presented for complaints of worsening shortness of breath and was found to have a COPD exacerbation. Patient was seen and examined at bedside. Comfortable. Breathing improving. Got out to chair again yesterday. Objective - Vital Signs/Intake and Output Vital Signs (last 24 hours): Temp Pulse Resp BP Pulse Ox 98.1 F 69 18 125/74 99 12/25/18 06:00 12/25/18 10:13 12/25/18 06:00 12/25/18 10:13 12/25/18 06:00 Intake and Output: 12/25/18 12/25/18 06:59 18:59 Intake Total 720 Output Total 1400 500 Balance -680 -500 - Medications Medications: Current Medications Albuterol/Ipratropium (Duoneb 3 Mg/0.5 Mg (3 Ml) Ud) 3 ml IH TIDRESP [facility] Last Admin: 12/25/18 13:44 Dose: 3 ml Albuterol/Ipratropium (Duoneb 3 Mg/0.5 Mg (3 Ml) Ud) 3 ml IH [id number] PRN PRN Reason: Shortness of Breath Last Admin: 12/20/18 10:26 Dose: 3 ml Amlodipine Besylate (Norvasc) 10 mg PO DAILY [facility] Last Admin: 12/25/18 10:11 Dose: 10 mg Arformoterol Tartrate (Brovana) 15 mcg IH [id number] [facility] Last Admin: 12/25/18 08:21 Dose: 15 mcg Ascorbic Acid (Vitamin C Liq) 500 mg PO DAILY [facility] Last Admin: 12/25/18 10:07 Dose: 500 liq Aspirin (Ecotrin) 81 mg PO DAILY [facility] Last Admin: 12/25/18 10:14 Dose: 81 mg Atorvastatin Calcium (Lipitor) 20 mg PO DIN [facility] Last Admin: 12/24/18 17:03 Dose: 20 mg Collagenase (Santyl) 0 gm TOP BID [facility] Last Admin: 12/25/18 10:10 Dose: 1 applic Cyanocobalamin (Vitamin B12 1000 Mcg/Ml Inj) 1,000 mcg IM DAILY [facility] Last Admin: 12/25/18 10:10 Dose: 1,000 mcg Escitalopram Oxalate (Lexapro) 10 mg PO DAILY [facility] Last Admin: 12/25/18 10:10 Dose: 10 mg Hydrochlorothiazide (Hydrodiuril) 25 mg PO DAILY [facility] Last Admin: 12/25/18 10:13 Dose: 25 mg Lisinopril (Zestril) 10 mg PO DAILY [facility] Last Admin: 12/25/18 10:13 Dose: 10 mg Methylprednisolone (Solu-Medrol) 30 mg IVP DAILY [facility] Last Admin: 12/25/18 10:09 Dose: 30 mg Metoprolol Tartrate (Lopressor) 25 mg PO BID [facility] Last Admin: 12/25/18 10:13 Dose: 25 mg Pantoprazole Sodium (Protonix Ec Tab) 20 mg PO 0600 [facility] Last Admin: 12/25/18 06:02 Dose: 20 mg Pregabalin (Lyrica) 50 mg PO HS [facility] Last Admin: 12/24/18 21:13 Dose: 50 mg Zinc Sulfate (Zinc Sulfate 220 Mg Cap) 220 mg PO DAILY [facility] Last Admin: 12/25/18 10:13 Dose: 220 mg - Labs Labs: 12/25/18 06:15 12/25/18 06:15 PT 10.8 SECONDS (9.4-12.5) 12/19/18 14:50 INR 0.97 12/19/18 14:50 APTT 33.9 Seconds (26.9-38.3) 12/19/18 14:50 - Constitutional Appears: Chronically Ill, Please elderly female - Head Exam Head Exam: ATRAUMATIC, NORMOCEPHALIC - Eye Exam Eye Exam: EOMI. absent: Scleral icterus - ENT Exam ENT Exam: Mucous Membranes Moist - Neck Exam Neck Exam: Normal Inspection - Respiratory Exam Respiratory Exam: improved air movement throughout, no wheezing noted - Cardiovascular Exam Cardiovascular Exam: +S1, +S2. absent: Gallop, Rubs - GI/Abdominal Exam GI & Abdominal Exam: Soft, Normal Bowel Sounds. absent: Distended, Tenderness - Extremities Exam Extremities Exam: absent: Tenderness - Neurological Exam Neurological Exam: Awake, Alert, intact propioception - Skin Skin Exam: Dry, Warm Assessment and Plan - Assessment and Plan (Free Text) Assessment: 78-year-old female with a past medical history of COPD, previous breast cancer, acute kidney injury, COPD, CAD status post CABG, DJD, T5 compression fracture who presented for complaints of worsening shortness of breath and was found to have a COPD exacerbation. Plan: 1. Acute COPD exacerbation 2. CAD status post CABG 3. Hypertension 4. Hyperlipidemia 5. Neuropathy 6. Macrocytic anemia 7. Anxiety 8. Sacral decubiti 9. Hypokalemia - resolved 10. Bed bound 11. Breast CA Clinically improved. Pulmonary on the case, note reviewed. Continue with Solu- Medrol 30, Brovana, Pulmicort and nebulizers. For breast cancer and anemia she is being followed by hematology oncology. She is also been receiving intr amuscular cyanocobalamin and her hemoglobin has improved. Getting better day by day. Other oncological work-up underway. She continues on aspirin and Lipitor for her CAD. Her blood pressure has been better controlled, will continue with amlodipine, hydrochlorothiazide, metoprolol, and lisinopril. For neuropathy we will continue her Lyrica. GI recommendations were also reviewed and appreciate d. We will continue with PPI therapy. For her sacral decubiti she continues on vitamin C and zinc to aid in wound healing and we have encouraged the patient to obtain enough protein. Patient is also being supplemented with pro-stat. She continues to work with physical therapy. Patient was seen and examined and case discussed with attending physician at length. <Michael Mullen - Last Filed: 12/25/18 16:14> Objective - Vital Signs/Intake and Output Vital Signs (last 24 hours): Temp Pulse Resp BP Pulse Ox 98.3 F 97 H 20 105/65 99 12/25/18 14:00 12/25/18 14:00 12/25/18 14:00 12/25/18 14:00 12/25/18 14:00 Intake and Output: 12/25/18 12/25/18 06:59 18:59 Intake Total 720 480 Output Total 1400 1200 Balance -680 -720 - Medications Medications: Current Medications Albuterol/Ipratropium (Duoneb 3 Mg/0.5 Mg (3 Ml) Ud) 3 ml IH TIDRESP [facility] Last Admin: 12/25/18 13:44 Dose: 3 ml Albuterol/Ipratropium (Duoneb 3 Mg/0.5 Mg (3 Ml) Ud) 3 ml IH [id number] PRN PRN Reason: Shortness of Breath Last Admin: 12/20/18 10:26 Dose: 3 ml Amlodipine Besylate (Norvasc) 10 mg PO DAILY [facility] Last Admin: 12/25/18 10:11 Dose: 10 mg Arformoterol Tartrate (Brovana) 15 mcg IH [id number] [facility] Last Admin: 12/25/18 08:21 Dose: 15 mcg Ascorbic Acid (Vitamin C Liq) 500 mg PO DAILY [facility] Last Admin: 12/25/18 10:07 Dose: 500 liq Aspirin (Ecotrin) 81 mg PO DAILY [facility] Last Admin: 12/25/18 10:14 Dose: 81 mg Atorvastatin Calcium (Lipitor) 20 mg PO DIN [facility] Last Admin: 12/24/18 17:03 Dose: 20 mg Collagenase (Santyl) 0 gm TOP BID [facility] Last Admin: 12/25/18 10:10 Dose: 1 applic Cyanocobalamin (Vitamin B12 1000 Mcg/Ml Inj) 1,000 mcg IM DAILY [facility] Last Admin: 12/25/18 10:10 Dose: 1,000 mcg Escitalopram Oxalate (Lexapro) 10 mg PO DAILY [facility] Last Admin: 12/25/18 10:10 Dose: 10 mg Hydrochlorothiazide (Hydrodiuril) 25 mg PO DAILY [facility] Last Admin: 12/25/18 10:13 Dose: 25 mg Lisinopril (Zestril) 10 mg PO DAILY [facility] Last Admin: 12/25/18 10:13 Dose: 10 mg Methylprednisolone (Solu-Medrol) 30 mg IVP DAILY [facility] Last Admin: 12/25/18 10:09 Dose: 30 mg Metoprolol Tartrate (Lopressor) 25 mg PO BID [facility] Last Admin: 12/25/18 10:13 Dose: 25 mg Pantoprazole Sodium (Protonix Ec Tab) 20 mg PO 0600 [facility] Last Admin: 12/25/18 06:02 Dose: 20 mg Pregabalin (Lyrica) 50 mg PO HS [facility] Last Admin: 12/24/18 21:13 Dose: 50 mg Zinc Sulfate (Zinc Sulfate 220 Mg Cap) 220 mg PO DAILY [facility] Last Admin: 12/25/18 10:13 Dose: 220 mg - Labs Labs: 12/25/18 06:15 12/25/18 06:15 PT 10.8 SECONDS (9.4-12.5) 12/19/18 14:50 INR 0.97 12/19/18 14:50 APTT 33.9 Seconds (26.9-38.3) 12/19/18 14:50 Assessment and Plan - Assessment and Plan (Free Text) Plan: Pt seen and examined by me. I have reviewed the note of the medical screener and I agree with it. I have discussed the assessment and plan with the resident. I have reviewed the medications and the last labs.
--- NOTE | 2018-12-25 18:09 | PN ---
DATE: 12/25/2018 This is [facility] visit on the medical floor. For Dr. Pardo, SUBJECTIVE: The patient is a 78-year-old female seen lying awake in bed after being out of bed to the chair earlier today, feeling strong enough after packed red blood cells were transfused. The patient has history of breast cancer with decubitus ulcers and COPD for which she is now being treated with good effect. She is without complaints this visit. OBJECTIVE/PHYSICAL EXAMINATION: VITAL SIGNS: Temperature 98.3, pulse 97, respirations 20, blood pressure 105/65, and pulse ox 99%. HEENT: Unremarkable. NECK: Supple. LUNGS: Decreased breath sounds, rare rhonchi. HEART: Regular rate. ABDOMEN: Obese, soft with viable PEG tube. EXTREMITIES: No edema. SKIN: Warm and dry. NEUROLOGIC: Awake and alert. LABORATORY DATA: The patient's labs were done. White blood cell count is 6.5, hemoglobin 10.5, hematocrit 33.9, and platelet count of 190,000 with a metabolic panel showing a BUN of 22, creatinine of 0.6, total protein 5.4, carbon dioxide 37; otherwise, normal metabolic panel. ASSESSMENT: The assessment for this patient is that of symptomatic anemia, now status post treatment; chronic obstructive pulmonary disease exacerbation, improving; atherosclerotic cardiovascular disease; stage II breast cancer; degenerative joint disease; sacral decubitus; healed compression fracture; pulmonary hypertension; status post coronary artery bypass graft and gait disturbance. PLAN: Plan for this patient is to continue present medical regimen with transfer to rehab as per primary medical doctor with follow up in the office with Dr. Pardo for her cancer followup. Her tumor markers just return include CA of 3.8, CA 15-3 of 22.8, CA 27-29 of 25. This is a complex patient with a comprehensive medically necessary and appropriate visit carried out in excess of 20 minutes with the patient's questions answered to her satisfaction. Aime King MD
--- NOTE | 2018-12-25 19:05 | PN ---
DATE: 12/25/2018 SUBJECTIVE: The patient was seen and examined. I do agree with the note of the medical reception specialist. I was involved in the plan of care. The patient has acute COPD exacerbation and that is improving. She is on nebulizer treatment. She is on steroids. The patient is on Brovana and Pulmicort as well. 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 She is on aspirin for her coronary artery disease. She is on Lipitor for dyslipidemia. The patient has Lyrica for her neuropathy. She is on Vitamin C and zinc for her wound. She has a sacral stage 3 pressure ulcer in the back. The patient is eating well. I did speak to the patient's at the bedside to give him an update on the patient's diagnosis and plan of care. The patient is going to be discharged back to [facility]. She is requesting to go to [facility], but I explained to her that she will need to go back to [facility] in order to apply for a long-term care bed at [facility]. Michael Mullen MD
[2018-12-26] MEDS: Pantoprazole 20 mg EC Tab PO SCH (05:40)
[2018-12-26 07:10] LABS: EOS # 0.1 (0.0-0.7); EOS % 1.1 % (1.5-5.0); HEMOGLOBIN 10.7 g/dL (12.0-16.0); LYMPH # 0.9 (1.2-3.4); LYMPH % 11.5 % (22.0-35.0); MEAN CELL VOLUME 95.8 fl (80.0-105.0); MEAN CORPUSCULAR HGB CONC 31.3 g/dl (31.0-37.0); MEAN PLATELET VOLUME 9.8 fl (7.0-11.0); MONO # 0.5 (0.1-0.6); MONO % 6.6 % (1.0-6.0); RBC 3.57 10^6/uL (3.5-6.1); RED CELL DISTRIBUTION WIDTH 18.1 % (11.5-14.5); WHITE BLOOD COUNT 7.4 10^3/uL (4.5-11.0)
[2018-12-26 07:37] LABS: ALB/GLOB RATIO 1.1 (1.1-1.8); ALBUMIN 2.9 g/dL (3.0-4.8); ALT/SGPT 35 U/L (7-56); AST/SGOT 30 U/L (14-36); BLOOD UREA NITROGEN 30 mg/dL (7-21); CALCIUM 9.1 mg/dL (8.4-10.5); GFR NON-AFRICAN AMERICAN > 60
[2018-12-26] MEDS: Arformoterol 15 mcg/2 ml Inh Sol IH SCH (08:27)
[2018-12-26] MEDS: Albuterol-Ipratrop 3 mg / 0.5 (3 ml) UD IH SCH ×2 (08:28→13:08)
[2018-12-26] MEDS ORDERED: Lidocaine 1%/Epinephrine 1:100000 30 ml vial IJ ONE (09:09)
--- NOTE | 2018-12-26 09:36 | PN ---
DATE: 12/26/2018 PULMONARY NOTE SUBJECTIVE: The patient appears very comfortable this morning. She is not short of breath at rest. PHYSICAL EXAMINATION VITAL SIGNS: Last temperature recorded is 98.0, pulse this morning is approximately 88, respiratory rate 18, blood pressure 116/71. Oxygen saturation on nasal cannula 97%-99%. HEENT: Normocephalic, atraumatic. No JVD. CARDIOVASCULAR: Systolic ejection murmur at the lower left sternal border. No S3 gallop. LUNGS: Clear bilaterally this morning. GASTROINTESTINAL Abdomen is soft, nontender and nondistended. Bowel sounds are positive. SKIN: Positive sacral decubitus. No rashes. EXTREMITIES: Mild edema, no cyanosis, no clubbing. Calves are nontender to palpation. NEUROLOGIC: Limited at the present time. IMPRESSION: 1. Acute bronchitis. 2. Advanced chronic obstructive pulmonary disease. 3. Chronic respiratory insufficiency. 4. Coronary artery disease. 5. Anemia. PLAN: The patient appears very comfortable this morning. She is not short of breath at rest. She does state to feeling much better overall. On physical exam, her lungs are now clear. In addition, the oxygen saturation on nasal cannula is now 99%. I will continue the current nebulizer treatments and change to oral steroids this morning. Inputs by Gastroenterology and Oncology are also noted. Clinical status of the patient is certainly improved compared to the initial presentation. However, given the above, the future status/prognosis for this elderly patient, with advanced lung disease, does remain guarded. I will discuss the above with Dr. Zapata. Anthony Hameed MD MTDRubin
[2018-12-26] MEDS: Collagenase 250 Units/gm Ointment(30 gm) TOP SCH (09:44)
--- NOTE | 2018-12-26 10:16 | CP.PCM.CON ---
<Aristeo Delaney - Last Filed: 12/26/18 10:11> History of Present Illness - History of Present Illness History of Present Illness: General Surgery Consult Re: Removal of tunneled dialysis catheter HPI: 78F initially presented for evaluation of shortness of breath due to a COPD exacerbation and anemia. Currently without complaints and is set for discharge. Surgery consulted for removal of tunneled dialysis catheter. Last HD session was over 2 months ago. Cr currently 0.6. PMH: COPD, Hx breast cancer, CAD status post CABG, DJD, T5 compression fracture PSH: Right breast lumpectomy, partial colectomy, kyphoplasty, hysterectomy, CABG, cataract surgery SH: former tobacco use when young, No EtOH or drug use. FH: Noncontributory All: NKDA Meds: See MAR Review of Systems - Review of Systems All systems: reviewed and no additional remarkable complaints except (as per HPI) Past Patient History - Infectious Disease Hx of Infectious Diseases: None - Past Social History Smoking Status: Never Smoked - CARDIAC Hx Cardiac Disorders: Yes (CAD) Hx Congestive Heart Failure: Yes Hx Hypertension: Yes - PULMONARY Hx Chronic Obstructive Pulmonary Disease (COPD): Yes - NEUROLOGICAL Hx Neurological Disorder: No Other/Comment: peripheral neuropathy - HEENT Hx HEENT Problems: Yes (reading glasses) Hx Cataracts: Yes (cataract sx b/l lens implant age 52) - RENAL Hx Chronic Kidney Disease: No - ENDOCRINE/METABOLIC Hx Endocrine Disorders: No - HEMATOLOGICAL/ONCOLOGICAL Hx Blood Transfusions: No Hx Blood Transfusion Reaction: No - INTEGUMENTARY Other/Comment: b/l arms multiple eccymotic areas "I bruise easily.", fell about a month ago slipped on a towel on the floor dry scab left knee surrounding skin red, fading bruises both knees from "crawling on floor when I fell", bruises both arms, redness to bottom of both feet, dry skin, redness tp sides of toes 4 & 5 both feet, redness to b/l bunyons, crooked great toes both feet, ble +1 pitting edema, red coccyx - MUSCULOSKELETAL/RHEUMATOLOGICAL Hx Arthritis: Yes - GASTROINTESTINAL Hx Gastrointestinal Disorders: Yes (reflux/colon polyp) - GENITOURINARY/GYNECOLOGICAL Hx Genitourinary Disorders: No Hx Reproductive Disorders: Yes (hyst/r breast lumpectomy) - PSYCHIATRIC Hx Psychophysiologic Disorder: Yes Hx Anxiety: Yes Hx Depression: No Hx Emotional Abuse: No Hx Physical Abuse: No Hx Substance Use: No - SURGICAL HISTORY Other/Comment: R breast bx 10/26/17, right external jugular venous port 04/24/18 dr carlyle albrecht, 03/02/18 lap and 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 results as per pt, done by dr ahsan dubose - ANESTHESIA Hx Anesthesia Reactions: No Hx Malignant Hyperthermia: No Meds Allergies/Adverse Reactions: Allergies Allergy/AdvReac Type Severity Reaction Status Date / Time No Known Allergies Allergy Verified 12/19/18 13:58 - Medications Medications: Current Medications Albuterol/Ipratropium (Duoneb 3 Mg/0.5 Mg (3 Ml) Ud) 3 ml IH TIDRESP [facility] Last Admin: 12/26/18 08:28 Dose: 3 ml Albuterol/Ipratropium (Duoneb 3 Mg/0.5 Mg (3 Ml) Ud) 3 ml IH [id number] PRN PRN Reason: Shortness of Breath Last Admin: 12/20/18 10:26 Dose: 3 ml Amlodipine Besylate (Norvasc) 10 mg PO DAILY [facility] Last Admin: 12/25/18 10:11 Dose: 10 mg Arformoterol Tartrate (Brovana) 15 mcg IH [id number] [facility] Last Admin: 12/26/18 08:27 Dose: 15 mcg Ascorbic Acid (Vitamin C Liq) 500 mg PO DAILY [facility] Last Admin: 12/25/18 10:07 Dose: 500 liq Aspirin (Ecotrin) 81 mg PO DAILY [facility] Last Admin: 12/25/18 10:14 Dose: 81 mg Atorvastatin Calcium (Lipitor) 20 mg PO DIN [facility] Last Admin: 12/25/18 17:31 Dose: 20 mg Collagenase (Santyl) 0 gm TOP BID [facility] Last Admin: 12/25/18 17:33 Dose: 1 applic Cyanocobalamin (Vitamin B12 1000 Mcg/Ml Inj) 1,000 mcg IM DAILY [facility] Last Admin: 12/25/18 10:10 Dose: 1,000 mcg Escitalopram Oxalate (Lexapro) 10 mg PO DAILY [facility] Last Admin: 12/25/18 10:10 Dose: 10 mg Hydrochlorothiazide (Hydrodiuril) 25 mg PO DAILY [facility] Last Admin: 12/25/18 10:13 Dose: 25 mg Lisinopril (Zestril) 10 mg PO DAILY [facility] Last Admin: 12/25/18 10:13 Dose: 10 mg Metoprolol Tartrate (Lopressor) 25 mg PO BID [facility] Last Admin: 12/25/18 17:31 Dose: 25 mg Pantoprazole Sodium (Protonix Ec Tab) 20 mg PO 0600 [facility] Last Admin: 12/26/18 05:40 Dose: 20 mg Prednisone (Prednisone Tab) 30 mg PO DAILY [facility] Pregabalin (Lyrica) 50 mg PO HS [facility] Last Admin: 12/25/18 21:30 Dose: 50 mg Zinc Sulfate (Zinc Sulfate 220 Mg Cap) 220 mg PO DAILY [facility] Last Admin: 12/25/18 10:13 Dose: 220 mg Physical Exam - Constitutional Appears: Non-toxic, No Acute Distress - Head Exam Head Exam: ATRAUMATIC, NORMOCEPHALIC - Eye Exam Eye Exam: EOMI. absent: Scleral icterus - ENT Exam ENT Exam: Mucous Membranes Moist Additional comments: trachea midline - Respiratory Exam Respiratory Exam: NORMAL BREATHING PATTERN. absent: Respiratory Distress Additional comments: HD cath in L chest, Portacath in R chest - Cardiovascular Exam Cardiovascular Exam: absent: Bradycardia, Tachycardia - GI/Abdominal Exam GI & Abdominal Exam: Soft. absent: Distended, Tenderness - Rectal Exam Rectal Exam: Deferred - Extremities Exam Extremities exam: Positive for: normal capillary refill. Negative for: calf tenderness - Back Exam Back exam: absent: CVA tenderness (L), CVA tenderness (R) - Neurological Exam Neurological exam: Alert, Oriented x3 - Skin Skin Exam: Dry, Warm Results - Vital Signs Recent Vital Signs: Last Vital Signs Temp 98 F 12/26/18 06:00 Pulse 98 H 12/26/18 06:00 Resp 19 12/26/18 06:00 BP 165/89 H 12/26/18 06:00 Pulse Ox 99 12/26/18 06:00 - Labs Result Diagrams: 12/26/18 07:00 12/26/18 07:00 Labs: Laboratory Results - last 24 hr 12/26/18 12/26/18 07:00 07:00 WBC 7.4 RBC 3.57 Hgb 10.7 L Hct 34.2 L MCV 95.8 MCH 30.0 MCHC 31.3 RDW 18.1 H Plt Count 189 MPV 9.8 Neut % (Auto) 80.8 H Lymph % (Auto) 11.5 L [place] % (Auto) 6.6 H Eos % (Auto) 1.1 L Baso % (Auto) 0.0 Lymph # (Auto) 0.9 L [place] # (Auto) 0.5 Eos # (Auto) 0.1 Baso # (Auto) 0.00 Absolute Neuts (auto) 5.96 Sodium 136 Potassium 3.6 Chloride 98 Carbon Dioxide 34 H Anion Gap 9 L BUN 30 H Creatinine 0.5 L Est GFR ( Amer) > 60 Est GFR (Non-Af Amer) > 60 Random Glucose 78 Calcium 9.1 Total Bilirubin 0.6 AST 30 ALT 35 Alkaline Phosphatase 68 Total Protein 5.5 L Albumin 2.9 L Globulin 2.6 Albumin/Globulin Ratio 1.1 Assessment & Plan - Assessment and Plan (Free Text) Assessment: 78F with prior requirement of hemodialysis via L tunneled HD catheter. No longer requiring HD. Plan: - Will remove HD cath at bedside under local anesthetic - Discussed with Medical team and nurse. - Dressing can be removed in 24 hours, pressure dressing in 1 hour D/W Dr. Thalia Delaney PGY4 Procedure - Procedure and Findings -: Procedure: Removal of left tunneled dialysis catheter Timeout performed. With the patient in supine position, the left side of the neck and the existing catheter were prepped and draped in a sterile fashion. 1% Lidocaine with epinephrine was injected subcutaneously around the fibrous cuff of the catheter for fluid dissection. Traction was applied to the catheter and it was removed without complications in its entirety. With the patient now sitting upright, pressure was held over the entry site in the left internal jugular vein and hemostasis was achieved. Dressings were placed over the skin wound on the subclavicular region. A pressure dressing was applied to the clavicular area. The patient tolerated the procedure well. Dr. Vásquez, the attending surgeon, was available during the procedure. PGY4 <Earl Vásquez - Last Filed: 12/27/18 19:22> Results - Vital Signs Recent Vital Signs: Last Vital Signs Temp 98.5 F 12/26/18 13:52 Pulse 83 12/26/18 13:52 Resp 20 12/26/18 13:52 BP 115/70 12/26/18 13:52 Pulse Ox 100 12/26/18 13:52 - Labs Result Diagrams: 12/26/18 07:00 12/26/18 07:00 Labs: Laboratory Results - last 24 hr 12/22/18 06:11 Albumin (PEP) 2.8 L Ymkmb-0-Xzwzczcnc 0.4 H Nzjmg-8-Tyetvpfot 0.7 Jaqm-7-Okuxujaj 0.3 L Xwhd-9-Rmoakpfa 0.2 Gamma Globulins 0.7 L Abnorm Protein Band 1 TEST NOT PERFORMED Abnorm Protein Band 2 TEST NOT PERFORMED Abnorm Protein Band 3 TEST NOT PERFORMED JOSHUA & SPEP Interp See note Assessment & Plan - Assessment and Plan (Free Text) Plan: Patient was seen, evaluated and examined by me at the bedside. I agree with assessment and plan as stated in the resident's note.
[2018-12-26] MEDS: Ascorbic Acid 500 mg/5 ml Liq(50 ml) PO SCH (10:20)
--- NOTE | 2018-12-26 12:02 | CP.PCM.PN ---
<Robert Castro - Last Filed: 12/26/18 11:57> Subjective - Date & Time of Evaluation Date of Evaluation: 12/26/18 Time of Evaluation: 10:15 - Subjective Subjective: Robert Castro Internal Medicine Resident- Progress Note on Behalf of Dr. Burr Subjective: Patient seen and examined at bedside. No acute events overnight. Admits to baseline fecal incontinence. Able to tolerate diet. Continues to have decreased appetite. Denies abdominal pain, nausea, vomiting, diarrhea, constipation, bright red blood per rectum, black stools, and change in stool caliber. Further denies fever, chills, chest pain, SOB. 12 point ROS negative except as indicated in the HPI Physical Examination: - Constitutional Appears: Chronically Ill - Head Exam Head Exam: ATRAUMATIC, NORMOCEPHALIC - Eye Exam Eye Exam: EOMI. absent: Scleral icterus - ENT Exam ENT Exam: Mucous Membranes Moist - Neck Exam Neck Exam: Normal Inspection - Respiratory Exam Respiratory Exam: absent: Rales, Rhonchi, Wheezes - Cardiovascular Exam Cardiovascular Exam: +S1, +S2. absent: Gallop, Rubs - GI/Abdominal Exam GI & Abdominal Exam: Soft, Normal Bowel Sounds. absent: Distended, Tenderness - Extremities Exam Extremities Exam: no cyanosis, no clubbing - Neurological Exam Neurological Exam: Awake, alert, orientated x 3, responds to verbal stimuli, follows commands, answers questions appropriately - Skin Skin Exam: Dry, Warm Studies Reviewed: 12/23/2018 CT Abdomen/Pelvis with Contrast- Small right larger than left bilateral pleural effusions with subjacent atelectasis. Minimal cholelithiasis without wall thickening or pericholecystic fluid. 02/06/2018 Colonoscopy- diverticulosis of the entire colon, internal hemorrhoids, one 40mm polyp in the cecum ( tubulovillous adenoma), one 15mm polyp in the ascending colon (tubular ademoma-removed), one 8 mm in the sigmoid colon (removed- tubular adenoma), one 5mm polyp in the sigmoid colon (serrated- removed), one 12mm polyp in the sigmoid colon (serrated- removed), one 5mm polyp in the rectum (hyperpastic- removed) 12/06/2017 Endoscopy- esophageal mucosal changes suspicious for long segment Paiz's esophagus, 5 cm hiatal hernia, one gastric polyp (ulcerated inflammed hyperplastic polyp with reactive surface epithelia), gastric biopsies (mild ch ronic gastritis), few duodenal polyps (biopsied- no benign small bowel mucosa, no active inflammation, no increased intraepithelial lymphocytes) Assessment and Plan: Patient is a 78-year-old female with a past medical history of COPD, previous breast cancer, acute kidney injury, COPD, CAD status post CABG, DJD, T5 compression fracture who was admitted for evaluation and treatment of worsening shortness of breath. Normocytic Anemia- Hgb responded appropriately to transfusion 2pRBCs, stable hemoglobin Cholelithiasis Diverticulosis Internal hemorrhoids Hx of Gastric Polyps Hx of Duodenal Polyps Hx of Colonic Polyps Mild Chronic Gastritis - EGD/Colonoscopy records reviewed as above - Macrocytic anemia- iron studies reviewed likely secondary to B12 deficiency - continue with vitamin b12 IM as ordered - continue pantoprazole 20mg PO daily - no acute GI scope intervention at this time, recommend outpatient colonoscopy when medically optimized Patient case discussed with and plan approved by attending physician, Dr. Burr. Objective - Vital Signs/Intake and Output Vital Signs (last 24 hours): Temp Pulse Resp BP Pulse Ox 98 F 98 H 19 166/84 H 99 12/26/18 06:00 12/26/18 06:00 12/26/18 06:00 12/26/18 09:43 12/26/18 10:23 Intake and Output: 12/26/18 12/26/18 06:59 18:59 Intake Total 600 Output Total 950 Balance -350 - Medications Medications: Current Medications Albuterol/Ipratropium (Duoneb 3 Mg/0.5 Mg (3 Ml) Ud) 3 ml IH TIDRESP [facility] Last Admin: 12/26/18 08:28 Dose: 3 ml Albuterol/Ipratropium (Duoneb 3 Mg/0.5 Mg (3 Ml) Ud) 3 ml IH [id number] PRN PRN Reason: Shortness of Breath Last Admin: 12/20/18 10:26 Dose: 3 ml Amlodipine Besylate (Norvasc) 10 mg PO DAILY [facility] Last Admin: 12/26/18 09:43 Dose: 10 mg Arformoterol Tartrate (Brovana) 15 mcg IH [id number] [facility] Last Admin: 12/26/18 08:27 Dose: 15 mcg Ascorbic Acid (Vitamin C Liq) 500 mg PO DAILY [facility] Last Admin: 12/26/18 10:20 Dose: 1 liq Aspirin (Ecotrin) 81 mg PO DAILY [facility] Last Admin: 12/26/18 09:42 Dose: 81 mg Atorvastatin Calcium (Lipitor) 20 mg PO DIN [facility] Last Admin: 12/25/18 17:31 Dose: 20 mg Collagenase (Santyl) 0 gm TOP BID [facility] Last Admin: 12/26/18 09:44 Dose: 1 applic Cyanocobalamin (Vitamin B12 1000 Mcg/Ml Inj) 1,000 mcg IM DAILY [facility] Last Admin: 12/26/18 09:44 Dose: 1,000 mcg Escitalopram Oxalate (Lexapro) 10 mg PO DAILY [facility] Last Admin: 12/26/18 09:41 Dose: 10 mg Hydrochlorothiazide (Hydrodiuril) 25 mg PO DAILY [facility] Last Admin: 12/26/18 09:42 Dose: 25 mg Lisinopril (Zestril) 10 mg PO DAILY [facility] Last Admin: 12/26/18 09:42 Dose: 10 mg Metoprolol Tartrate (Lopressor) 25 mg PO BID [facility] Last Admin: 12/26/18 09:42 Dose: 25 mg Pantoprazole Sodium (Protonix Ec Tab) 20 mg PO 0600 [facility] Last Admin: 12/26/18 05:40 Dose: 20 mg Prednisone (Prednisone Tab) 30 mg PO DAILY [facility] Last Admin: 12/26/18 09:42 Dose: 30 mg Pregabalin (Lyrica) 50 mg PO HS [facility] Last Admin: 12/25/18 21:30 Dose: 50 mg Zinc Sulfate (Zinc Sulfate 220 Mg Cap) 220 mg PO DAILY [facility] Last Admin: 12/26/18 09:41 Dose: 220 mg - Labs Labs: 12/26/18 07:00 12/26/18 07:00 PT 10.8 SECONDS (9.4-12.5) 12/19/18 14:50 INR 0.97 12/19/18 14:50 APTT 33.9 Seconds (26.9-38.3) 12/19/18 14:50 <Leno,Kovil V - Last Filed: 12/26/18 17:03> Objective - Vital Signs/Intake and Output Vital Signs (last 24 hours): Temp Pulse Resp BP Pulse Ox 98.5 F 83 20 115/70 100 12/26/18 13:52 12/26/18 13:52 12/26/18 13:52 12/26/18 13:52 12/26/18 13:52 Intake and Output: 12/26/18 12/26/18 06:59 18:59 Intake Total 600 480 Output Total 950 500 Balance -350 -20 - Labs Labs: 12/26/18 07:00 12/26/18 07:00 PT 10.8 SECONDS (9.4-12.5) 12/19/18 14:50 INR 0.97 12/19/18 14:50 APTT 33.9 Seconds (26.9-38.3) 12/19/18 14:50 Attending/Attestation - Attestation I have personally seen and examined this patient.: Yes I have fully participated in the care of the patient.: Yes I have reviewed all pertinent clinical information, including history, physical exam and plan: Yes Notes (Text): This patient was seen and evaluated along with the resident earlier today. This is an addendum to the GI progress report dictated by the resident. Patient is admitted with the severe anemia symptomatic. Status post transfusion. Borderline B12 level. Patient has been supplemented with B12. History of multiple polyps. Status post right hemicolectomy for large polyp in the cecum. Patient did have piecemeal polypectomies also done. Would benefit from luis alfredo veillance colonoscopy. I have discussed this with the patient's family earlier. History of anemia patient has a large hiatus hernia George ulcer could be a contributing factor also. Patient is advised to continue PPI Patient has a G-tube tolerating diet now Thank you Dr. Acosta for allowing us to part spent in the care of the patient. We will sign off now and please reconsult as needed 12/26/18 17:00
[2018-12-26 13:54] VITALS: BP 115/70; PULSE 83; RESP 20; TEMP 98.5; O2SAT 100
--- NOTE | 2018-12-26 14:07 | CP.PCM.DIS ---
<Rolo Ventura - Last Filed: 12/26/18 17:12> Provider - Provider Date of Admission: 12/19/18 17:06 Attending physician: Michael Mullen MD Primary care physician: Ale Taylor MD Consults: 12/20/18 01:33 Nursing Referral for Wound Care Routine Comment: Physician Instructions: Reason For Exam: pressure ulcer on sacrum 12/20/18 08:08 Consult [Physician Consult] Routine Comment: Consulting Provider: Anthony Hameed Consulting Physician: Anthony Hameed Reason for Consult: COPD 12/20/18 09:00 Palliative Care Consult Routine Comment: Consulting Provider: Juliana Jasmine Physician Instructions: Reason For Exam: advanced directives 12/21/18 10:18 Hematology Oncology Consult Routine Comment: Consulting Provider: Manjula Pardo Consulting Physician: Manjula Pardo Reason for Consult: Hx breast CA, anemia, possible EPO? 12/21/18 15:42 Gastroenterology Consult Routine Comment: Consulting Provider: Rubio Burr V Consulting Physician: Rubio Burr V Reason for Consult: Borderline macrocytic anemia; hypochromic anemia 12/22/18 13:40 Consult [Physician Consult] Routine Comment: Consulting Provider: Lexus Morrison Consulting Physician: Lexus Morrison Reason for Consult: heel f/u please 12/26/18 09:27 Consult [Physician Consult] Routine Comment: Consulting Provider: Earl Vásquez Consulting Physician: Earl Vásquez Reason for Consult: Catheter removal Time Spent in preparation of Discharge (in minutes): 60 Diagnosis - Discharge Diagnosis (1) Anemia Status: Acute (2) COPD exacerbation Status: Acute Hospital Course - Lab Results Lab Results: Micro Results 12/19/18 14:10 Blood Blood Culture - Final NO GROWTH AFTER 5 DAYS 12/19/18 14:10 Blood Gram Stain - Final TEST NOT PERFORMED 12/19/18 14:00 Blood Blood Culture - Final NO GROWTH AFTER 5 DAYS 12/19/18 14:00 Blood Gram Stain - Final TEST NOT PERFORMED Most Recent Lab Values WBC 7.4 10^3/uL (4.5-11.0) 12/26/18 07:00 RBC 3.57 10^6/uL (3.5-6.1) 12/26/18 07:00 Hgb 10.7 g/dL (12.0-16.0) L 12/26/18 07:00 Hct 34.2 % (36.0-48.0) L 12/26/18 07:00 MCV 95.8 fl (80.0-105.0) 12/26/18 07:00 MCH 30.0 pg (25.0-35.0) 12/26/18 07:00 MCHC 31.3 g/dl (31.0-37.0) 12/26/18 07:00 RDW 18.1 % (11.5-14.5) H 12/26/18 07:00 Plt Count 189 10^3/uL (120.0-450.0) 12/26/18 07:00 MPV 9.8 fl (7.0-11.0) 12/26/18 07:00 Neut % (Auto) 80.8 % (50.0-68.0) H 12/26/18 07:00 Lymph % (Auto) 11.5 % (22.0-35.0) L 12/26/18 07:00 [place] % (Auto) 6.6 % (1.0-6.0) H 12/26/18 07:00 Eos % (Auto) 1.1 % (1.5-5.0) L 12/26/18 07:00 Baso % (Auto) 0.0 % (0.0-3.0) 12/26/18 07:00 Lymph # (Auto) 0.9 (1.2-3.4) L 12/26/18 07:00 [place] # (Auto) 0.5 (0.1-0.6) 12/26/18 07:00 Eos # (Auto) 0.1 (0.0-0.7) 12/26/18 07:00 Baso # (Auto) 0.00 K/mm3 (0.0-2.0) 12/26/18 07:00 Absolute Neuts (auto) 5.96 (1.4-6.5) 12/26/18 07:00 Neutrophils % (Manual) 92 % (50.0-70.0) H 12/19/18 14:50 Band Neutrophils % 1 % (0-2) 12/19/18 14:50 Lymphocytes % (Manual) 6 % (22.0-35.0) L 12/19/18 14:50 Monocytes % (Manual) 1 % (1.0-6.0) 12/19/18 14:50 Platelet Evaluation Normal (NORMAL) 12/19/18 14:50 Anisocytosis (manual) Slight 12/19/18 14:50 Retic Count 3.02 % (0.5-1.5) H 12/22/18 06:11 Hemoglobin A 96.6 Percent (>96.0) 12/22/18 06:11 Hemoglobin A2 2.4 Percent (1.8-3.5) 12/22/18 06:11 Hemoglobin C 0.0 Percent (0.0-0.0) 12/22/18 06:11 Hemoglobin F () <1.0 Percent (<2.0) 12/22/18 06:11 Hemoglobin S 0.0 Percent (0.0-0.0) 12/22/18 06:11 Variant Hemoglobin 0.0 Percent (0.0-0.0) 12/22/18 06:11 Hemoglobinopathy Red Blood Count 2.13 Million/uL (3.80-5.10) L 12/22/18 06:11 Hemoglobinopathy Hct 21.1 % (35.0-45.0) L 12/22/18 06:11 Hemoglobinopathy Hgb 7.0 g/dL (11.7-15.5) L 12/22/18 06:11 Hemoglobinopathy MCV 99.1 fL (80.0-100.0) 12/22/18 06:11 Hemoglobinopathy MCH 32.9 pg (27.0-33.0) 12/22/18 06:11 Hemoglobinopathy RDW 15.1 % (11.0-15.0) H 12/22/18 06:11 Hemoglobinopathy Interp See note 12/22/18 06:11 PT 10.8 SECONDS (9.4-12.5) 12/19/18 14:50 INR 0.97 12/19/18 14:50 APTT 33.9 Seconds (26.9-38.3) 12/19/18 14:50 pCO2 52 mm/Hg (35-45) H 12/19/18 14:40 pO2 71.0 mm/Hg (80-100) L 12/19/18 14:40 HCO3 32.2 mmol/L (21-28) H 12/19/18 14:40 ABG pH 7.40 (7.35-7.45) 12/19/18 14:40 ABG Total CO2 33.8 mmol.L (22-28) H 12/19/18 14:40 ABG O2 Saturation 98.4 % (95-98) H 12/19/18 14:40 ABG Base Excess 6.0 mmol/L (-2.0-3.0) H 12/19/18 14:40 ABG Potassium 3.7 mmol/L (3.6-5.2) 12/19/18 14:40 VBG pH 7.34 (7.32-7.43) 12/19/18 14:10 VBG pCO2 69.0 (40-60) H* 12/19/18 14:10 VBG HCO3 37.2 mmol/l (-28) H 12/19/18 14:10 VBG Total CO2 39.3 mmol.L (22-28) H 12/19/18 14:10 VBG O2 Sat (Calc) 94.5 % (40-65) H 12/19/18 14:10 VBG Base Excess 8.7 mmol/L (0.0-2.0) H 12/19/18 14:10 VBG Potassium 4.2 mmol/L (3.6-5.2) 12/19/18 14:10 Sodium 144.0 mmol/L (132-148) 12/19/18 14:40 Chloride 113.0 mmol/L (98-107) H 12/19/18 14:40 Glucose 126 mg/dl (65-105) H 12/19/18 14:40 Lactate 0.7 mmol/L (0.7-2.1) 12/19/18 14:40 FiO2 32.0 % 12/19/18 14:40 Crit Value Called To Oscar patel 12/19/18 14:10 Crit Value Called By Atc 12/19/18 14:10 Blood Gas Notified Time 1535 12/19/18 14:10 Sodium 136 mmol/L (132-148) 12/26/18 07:00 Potassium 3.6 mmol/L (3.6-5.0) 12/26/18 07:00 Chloride 98 mmol/L (98-107) 12/26/18 07:00 Carbon Dioxide 34 mmol/L (21-33) H 12/26/18 07:00 Anion Gap 9 (10-20) L 12/26/18 07:00 BUN 30 mg/dL (7-21) H 12/26/18 07:00 Creatinine 0.5 mg/dl (0.7-1.2) L 12/26/18 07:00 Est GFR ( Amer) > 60 12/26/18 07:00 Est GFR (Non-Af Amer) > 60 12/26/18 07:00 Random Glucose 78 mg/dL (70-110) 12/26/18 07:00 Calcium 9.1 mg/dL (8.4-10.5) 12/26/18 07:00 Phosphorus 3.5 mg/dL (2.5-4.5) 12/25/18 06:15 Magnesium 1.9 mg/dL (1.7-2.2) 12/25/18 06:15 Iron 61 ug/dL (45-180) 12/20/18 09:45 TIBC 194 ug/dL (265-497) L 12/20/18 09:45 % Saturation 31 % (20-55) 12/20/18 09:45 Ferritin 427.0 ng/mL 12/20/18 09:45 Total Bilirubin 0.6 mg/dL (0.2-1.3) 12/26/18 07:00 AST 30 U/L (14-36) 12/26/18 07:00 ALT 35 U/L (7-56) 12/26/18 07:00 Alkaline Phosphatase 68 U/L (38-126) 12/26/18 07:00 Lactate Dehydrogenase 473 U/L (333-699) 12/19/18 14:10 Total Creatine Kinase < 20 U/L (35-230) L 12/19/18 14:10 Troponin I 0.01 ng/mL 12/19/18 14:10 NT-Pro-B Natriuret Pep 11577 pg/mL (0-450) H 12/19/18 14:10 Total Protein 5.5 g/dL (5.8-8.3) L 12/26/18 07:00 Total Protein (PEP) 5.2 g/dL (6.1-8.1) L 12/22/18 06:11 Albumin 2.9 g/dL (3.0-4.8) L 12/26/18 07:00 Globulin 2.6 gm/dL 12/26/18 07:00 Albumin/Globulin Ratio 1.1 (1.1-1.8) 12/26/18 07:00 Carcinoembryonic Ag 3.8 ng/mL (0.0-3.0) H 12/23/18 06:00 CA 15-3 Antigen 22.8 U/mL (0-35) 12/23/18 06:00 CA 27-29 25 U/mL (<38) 12/23/18 06:00 Vitamin B12 266 pg/mL (239-931) 12/20/18 10:35 Folate > 20.0 ng/mL 12/20/18 10:35 Arterial Blood Potassium 3.7 mmol/L (3.6-5.2) 12/19/18 14:40 Venous Blood Potassium 4.2 mmol/L (3.6-5.2) 12/19/18 14:10 Influenza Typ A,B (EIA) Negative for flu a/b (NEGATIVE) 12/19/18 16:00 WB Flow Cytometry Reference test 12/22/18 05:00 Blood Type O POSITIVE 12/21/18 06:36 Antibody Screen Negative 12/21/18 06:36 Crossmatch See Detail 12/21/18 06:36 BBK History Checked Patient has bt 12/21/18 06:36 - Hospital Course Hospital Course: Rolo Ventura D.O. PGY-3, Internal Medicine Resident, Dr. Mullen's Service, Discharge Summary 78-year-old female with a past medical history of COPD, previous breast cancer, acute kidney injury, COPD, CAD status post CABG, DJD, T5 compression fracture who presented for complaints of worsening shortness of breath and was found to have a COPD exacerbation. Patient had a chest x-ray which revealed bilateral perihilar infiltrates right greater than left. Patient was evaluated by pulmonary and found to have acute bronchitis with advanced COPD and chronic respiratory insufficiency. Patient was started on nebulizer treatments and IV steroids. Patient also had a sacral decubiti which received local wound care and had some improvement. Patient had chronic anemia likely secondary to chronic disease and for this and for her breast cancer she was followed by hematology oncology team. Patient's anemia improved after hematology oncology service transfuse the patient 2 units of blood. Patient was also noted to be on the low side on her vitamin B12 and she received daily vitamin B12 injections which also had subsequent improvements in her hemoglobin. Patient's blood pressure was increasing despite her being on metoprolol hydrochlorothiazide and patient was started on Norvasc. This had to be uptitrated. Given that she had a history of CAD status post CABG patient was also started on lisinopril and had improvement in her blood pressure control. Patient had evaluation by physical therapy and was able to get out of bed and into the chair. Patient had neuropathy and was managed with Lyrica. Hematology oncology requested consultation with gastrointestinal team and she was evaluated by them. Patient was also seen by podiatry per hematology oncology recommendations to evaluate her feet. We also obtained palliative care who worked with the patient to set goals of care. Patient was also started on vitamin C and zinc to help in her wound healing. Patient did have an abdomen and pelvis CT scan which showed small right larger than left bilateral pleural effusions with subjacent adjacent atelectasis. Minimal cholelithiasis without wall thickening or pericholecystic fluid. Additional stable findings. Patient was seen and examined at bedside this morning and found to have a be in a stable condition. Patient is overall doing much better. Patient will be going back to her long-term facility. New scripts were sent to her pharmacy. Medication reconciliation was done. Discussed with nursing staff. Patient was evaluated by surgery to have her temporary hemodialysis access removed this was done at bedside by surgery team. - Date & Time of H&P Date of H&P: 12/26/18 Time of H&P: 08:00 Discharge Exam - Head Exam Head Exam: ATRAUMATIC, NORMOCEPHALIC - Eye Exam Eye Exam: EOMI. absent: Scleral icterus - ENT Exam ENT Exam: Mucous Membranes Moist, Normal Oropharynx - Neck Exam Neck exam: Normal Inspection - Respiratory Exam Respiratory Exam: Clear to PA & Lateral. absent: Rales, Rhonchi, Wheezes - Cardiovascular Exam Cardiovascular Exam: +S1, +S2. absent: Rubs - GI/Abdominal Exam GI & Abdominal Exam: Normal Bowel Sounds, Soft. absent: Tenderness Additional comments: PEG tube in place - Extremities Exam Extremities exam: normal capillary refill - Neurological Exam Neurological exam: Alert - Skin Skin Exam: Dry, Warm Discharge Plan - Discharge Medications Prescriptions: amLODIPine [Norvasc] 10 mg PO DAILY #30 tab Ascorbic Acid [Vitamin C Liq] 500 mg PO DAILY #1 bottle Collagenase [Santyl] 0 gm TOP BID #1 tube Cyanocobalamin [Vitamin B12 1000 mcg/ml Inj] 1,000 mcg IM DAILY #14 vial Lisinopril [Zestril] 10 mg PO DAILY #30 tab predniSONE [predniSONE Tab] 10 mg PO DAILY #15 tab Zinc [Zinc Sulfate 220 mg Cap] 220 mg PO DAILY #30 cap - Follow Up Plan Condition: SERIOUS Disposition: TRANSF TO SNF Instructions: Anemia Caused by Low Iron, Chronic Obstructive Pulmonary Disease (COPD), Including Emphysema, How to Care for Your PEG Tube , Wound Care, Vitamin B12 Deficiency (DC) Additional Instructions: PLEASE FOLLOW UP WITH PRIMARY PHYSICIAN Referrals: Ale Taylor MD [Primary Care Provider] - <Michael Mullen - Last Filed: 12/26/18 17:33> Provider - Provider Date of Admission: 12/19/18 17:06 Attending physician: Michael Mullen MD Primary care physician: Ale Taylor MD Consults: 12/20/18 01:33 Nursing Referral for Wound Care Routine Comment: Physician Instructions: Reason For Exam: pressure ulcer on sacrum 12/20/18 08:08 Consult [Physician Consult] Routine Comment: Consulting Provider: Anthony Hameed Consulting Physician: Anthony Hameed Reason for Consult: COPD 12/20/18 09:00 Palliative Care Consult Routine Comment: Consulting Provider: Juliana Jasmine Physician Instructions: Reason For Exam: advanced directives 12/21/18 10:18 Hematology Oncology Consult Routine Comment: Consulting Provider: Manjula Pardo Consulting Physician: Manjula Pardo Reason for Consult: Hx breast CA, anemia, possible EPO? 12/21/18 15:42 Gastroenterology Consult Routine Comment: Consulting Provider: Rubio Burr V Consulting Physician: Rubio Burr V Reason for Consult: Borderline macrocytic anemia; hypochromic anemia 12/22/18 13:40 Consult [Physician Consult] Routine Comment: Consulting Provider: Lexus Morrison Consulting Physician: Lexus Morrison Reason for Consult: heel f/u please 12/26/18 09:27 Consult [Physician Consult] Routine Comment: Consulting Provider: Earl Vásquez Consulting Physician: Earl Vásquez Reason for Consult: Catheter removal Hospital Course - Lab Results Lab Results: Micro Results 12/19/18 14:10 Blood Blood Culture - Final NO GROWTH AFTER 5 DAYS 12/19/18 14:10 Blood Gram Stain - Final TEST NOT PERFORMED 12/19/18 14:00 Blood Blood Culture - Final NO GROWTH AFTER 5 DAYS 12/19/18 14:00 Blood Gram Stain - Final TEST NOT PERFORMED Most Recent Lab Values WBC 7.4 10^3/uL (4.5-11.0) 12/26/18 07:00 RBC 3.57 10^6/uL (3.5-6.1) 12/26/18 07:00 Hgb 10.7 g/dL (12.0-16.0) L 12/26/18 07:00 Hct 34.2 % (36.0-48.0) L 12/26/18 07:00 MCV 95.8 fl (80.0-105.0) 12/26/18 07:00 MCH 30.0 pg (25.0-35.0) 12/26/18 07:00 MCHC 31.3 g/dl (31.0-37.0) 12/26/18 07:00 RDW 18.1 % (11.5-14.5) H 12/26/18 07:00 Plt Count 189 10^3/uL (120.0-450.0) 12/26/18 07:00 MPV 9.8 fl (7.0-11.0) 12/26/18 07:00 Neut % (Auto) 80.8 % (50.0-68.0) H 12/26/18 07:00 Lymph % (Auto) 11.5 % (22.0-35.0) L 12/26/18 07:00 [place] % (Auto) 6.6 % (1.0-6.0) H 12/26/18 07:00 Eos % (Auto) 1.1 % (1.5-5.0) L 12/26/18 07:00 Baso % (Auto) 0.0 % (0.0-3.0) 12/26/18 07:00 Lymph # (Auto) 0.9 (1.2-3.4) L 12/26/18 07:00 [place] # (Auto) 0.5 (0.1-0.6) 12/26/18 07:00 Eos # (Auto) 0.1 (0.0-0.7) 12/26/18 07:00 Baso # (Auto) 0.00 K/mm3 (0.0-2.0) 12/26/18 07:00 Absolute Neuts (auto) 5.96 (1.4-6.5) 12/26/18 07:00 Neutrophils % (Manual) 92 % (50.0-70.0) H 12/19/18 14:50 Band Neutrophils % 1 % (0-2) 12/19/18 14:50 Lymphocytes % (Manual) 6 % (22.0-35.0) L 12/19/18 14:50 Monocytes % (Manual) 1 % (1.0-6.0) 12/19/18 14:50 Platelet Evaluation Normal (NORMAL) 12/19/18 14:50 Anisocytosis (manual) Slight 12/19/18 14:50 Retic Count 3.02 % (0.5-1.5) H 12/22/18 06:11 Hemoglobin A 96.6 Percent (>96.0) 12/22/18 06:11 Hemoglobin A2 2.4 Percent (1.8-3.5) 12/22/18 06:11 Hemoglobin C 0.0 Percent (0.0-0.0) 12/22/18 06:11 Hemoglobin F () <1.0 Percent (<2.0) 12/22/18 06:11 Hemoglobin S 0.0 Percent (0.0-0.0) 12/22/18 06:11 Variant Hemoglobin 0.0 Percent (0.0-0.0) 12/22/18 06:11 Hemoglobinopathy Red Blood Count 2.13 Million/uL (3.80-5.10) L 12/22/18 06:11 Hemoglobinopathy Hct 21.1 % (35.0-45.0) L 12/22/18 06:11 Hemoglobinopathy Hgb 7.0 g/dL (11.7-15.5) L 12/22/18 06:11 Hemoglobinopathy MCV 99.1 fL (80.0-100.0) 12/22/18 06:11 Hemoglobinopathy MCH 32.9 pg (27.0-33.0) 12/22/18 06:11 Hemoglobinopathy RDW 15.1 % (11.0-15.0) H 12/22/18 06:11 Hemoglobinopathy Interp See note 12/22/18 06:11 PT 10.8 SECONDS (9.4-12.5) 12/19/18 14:50 INR 0.97 12/19/18 14:50 APTT 33.9 Seconds (26.9-38.3) 12/19/18 14:50 pCO2 52 mm/Hg (35-45) H 12/19/18 14:40 pO2 71.0 mm/Hg (80-100) L 12/19/18 14:40 HCO3 32.2 mmol/L (21-28) H 12/19/18 14:40 ABG pH 7.40 (7.35-7.45) 12/19/18 14:40 ABG Total CO2 33.8 mmol.L (22-28) H 12/19/18 14:40 ABG O2 Saturation 98.4 % (95-98) H 12/19/18 14:40 ABG Base Excess 6.0 mmol/L (-2.0-3.0) H 12/19/18 14:40 ABG Potassium 3.7 mmol/L (3.6-5.2) 12/19/18 14:40 VBG pH 7.34 (7.32-7.43) 12/19/18 14:10 VBG pCO2 69.0 (40-60) H* 12/19/18 14:10 VBG HCO3 37.2 mmol/l (21-28) H 12/19/18 14:10 VBG Total CO2 39.3 mmol.L (22-28) H 12/19/18 14:10 VBG O2 Sat (Calc) 94.5 % (40-65) H 12/19/18 14:10 VBG Base Excess 8.7 mmol/L (0.0-2.0) H 12/19/18 14:10 VBG Potassium 4.2 mmol/L (3.6-5.2) 12/19/18 14:10 Sodium 144.0 mmol/L (132-148) 12/19/18 14:40 Chloride 113.0 mmol/L (98-107) H 12/19/18 14:40 Glucose 126 mg/dl (65-105) H 12/19/18 14:40 Lactate 0.7 mmol/L (0.7-2.1) 12/19/18 14:40 FiO2 32.0 % 12/19/18 14:40 Crit Value Called To Oscar patel 12/19/18 14:10 Crit Value Called By Atc 12/19/18 14:10 Blood Gas Notified Time 1535 12/19/18 14:10 Sodium 136 mmol/L (132-148) 12/26/18 07:00 Potassium 3.6 mmol/L (3.6-5.0) 12/26/18 07:00 Chloride 98 mmol/L (98-107) 12/26/18 07:00 Carbon Dioxide 34 mmol/L (21-33) H 12/26/18 07:00 Anion Gap 9 (10-20) L 12/26/18 07:00 BUN 30 mg/dL (7-21) H 12/26/18 07:00 Creatinine 0.5 mg/dl (0.7-1.2) L 12/26/18 07:00 Est GFR ( Amer) > 60 12/26/18 07:00 Est GFR (Non-Af Amer) > 60 12/26/18 07:00 Random Glucose 78 mg/dL (70-110) 12/26/18 07:00 Calcium 9.1 mg/dL (8.4-10.5) 12/26/18 07:00 Phosphorus 3.5 mg/dL (2.5-4.5) 12/25/18 06:15 Magnesium 1.9 mg/dL (1.7-2.2) 12/25/18 06:15 Iron 61 ug/dL (45-180) 12/20/18 09:45 TIBC 194 ug/dL (265-497) L 12/20/18 09:45 % Saturation 31 % (20-55) 12/20/18 09:45 Ferritin 427.0 ng/mL 12/20/18 09:45 Total Bilirubin 0.6 mg/dL (0.2-1.3) 12/26/18 07:00 AST 30 U/L (14-36) 12/26/18 07:00 ALT 35 U/L (7-56) 12/26/18 07:00 Alkaline Phosphatase 68 U/L (38-126) 12/26/18 07:00 Lactate Dehydrogenase 473 U/L (333-699) 12/19/18 14:10 Total Creatine Kinase < 20 U/L (35-230) L 12/19/18 14:10 Troponin I 0.01 ng/mL 12/19/18 14:10 NT-Pro-B Natriuret Pep 50964 pg/mL (0-450) H 12/19/18 14:10 Total Protein 5.5 g/dL (5.8-8.3) L 12/26/18 07:00 Total Protein (PEP) 5.2 g/dL (6.1-8.1) L 12/22/18 06:11 Albumin 2.9 g/dL (3.0-4.8) L 12/26/18 07:00 Globulin 2.6 gm/dL 12/26/18 07:00 Albumin/Globulin Ratio 1.1 (1.1-1.8) 12/26/18 07:00 Carcinoembryonic Ag 3.8 ng/mL (0.0-3.0) H 12/23/18 06:00 CA 15-3 Antigen 22.8 U/mL (0-35) 12/23/18 06:00 CA 27-29 25 U/mL (<38) 12/23/18 06:00 Vitamin B12 266 pg/mL (239-931) 12/20/18 10:35 Folate > 20.0 ng/mL 12/20/18 10:35 Arterial Blood Potassium 3.7 mmol/L (3.6-5.2) 12/19/18 14:40 Venous Blood Potassium 4.2 mmol/L (3.6-5.2) 12/19/18 14:10 Influenza Typ A,B (EIA) Negative for flu a/b (NEGATIVE) 12/19/18 16:00 WB Flow Cytometry Reference test 12/22/18 05:00 Blood Type O POSITIVE 12/21/18 06:36 Antibody Screen Negative 12/21/18 06:36 Crossmatch See Detail 12/21/18 06:36 BBK History Checked Patient has bt 12/21/18 06:36 - Hospital Course Hospital Course: Pt seen and examined by me. I have reviewed the note of the medical claims assistant and I agree with it. I have discussed the assessment and plan with the resident. I have reviewed the medications and the last labs.
--- NOTE | 2018-12-27 02:42 | DS ---
HOSPITAL COURSE: The patient was seen and examined. I do agree with the note of the medical data entry clerk. I was involved in plan of care. The patient was admitted to the hospital for acute COPD exacerbation. She had improvement of her symptoms. She has a T5 compression fracture. She is going to get physical therapy. She is discharge back to [facility] where she is a long-term care resident. The patient is interested in coming to [facility] for long-term care, and we will try to make arrangements. I did speak to the patient's daughter today as well who had for [facility], and we will try to transfer the patient once the bed is available. The patient has received nebulizer treatments and steroids, and she has improvement of her symptoms. She has a neuropathy, is on Lyrica. The patient is eating well. She is not having any pain. She is going to be discharged home and going to follow with her primary care doctor at [facility]. Michael Mullen MD
[2018-12-27 07:28] LABS: ALBUMIN (PEP) 2.8 g/dL (3.8-4.8); ALPHA-1-GLOBULIN (PEP) 0.4 g/dL (0.2-0.3)
--- NOTE | 2018-12-27 08:16 | CP.PCM.PN ---
<LastMarcin - Last Filed: 12/27/18 08:16> Subjective - Date & Time of Evaluation Date of Evaluation: 12/26/18 Time of Evaluation: 08:15 - Subjective Subjective: Heme/onc progress note - Last PGY - 2 Patient was seen and examined at bedside. Currently she is comfortable, and her breathing is improving. Ready for discharge to [facility] today. Objective - Vital Signs/Intake and Output Vital Signs (last 24 hours): Temp Pulse Resp BP Pulse Ox 98.5 F 83 20 115/70 100 12/26/18 13:52 12/26/18 13:52 12/26/18 13:52 12/26/18 13:52 12/26/18 13:52 - Labs Labs: 12/26/18 07:00 12/26/18 07:00 PT 10.8 SECONDS (9.4-12.5) 12/19/18 14:50 INR 0.97 12/19/18 14:50 APTT 33.9 Seconds (26.9-38.3) 12/19/18 14:50 - Constitutional Appears: Well - Head Exam Head Exam: ATRAUMATIC, NORMAL INSPECTION, NORMOCEPHALIC - Eye Exam Eye Exam: EOMI, Normal appearance, PERRL Pupil Exam: NORMAL ACCOMODATION, PERRL - ENT Exam ENT Exam: Mucous Membranes Moist, Normal Exam - Neck Exam Neck Exam: Full ROM, Normal Inspection. absent: Lymphadenopathy - Respiratory Exam Respiratory Exam: Clear to Ausculation Bilateral, NORMAL BREATHING PATTERN - Cardiovascular Exam Cardiovascular Exam: REGULAR RHYTHM, +S1, +S2. absent: Murmur - GI/Abdominal Exam GI & Abdominal Exam: Soft, Normal Bowel Sounds. absent: Tenderness - Extremities Exam Extremities Exam: Full ROM, Normal Capillary Refill, Normal Inspection. absent: Joint Swelling, Pedal Edema - Back Exam Back Exam: NORMAL INSPECTION - Neurological Exam Neurological Exam: Alert, Awake, CN II-XII Intact, Normal Gait, Oriented x3 - Psychiatric Exam Psychiatric exam: Normal Affect, Normal Mood - Skin Skin Exam: Dry, Intact, Normal Color, Warm Assessment and Plan - Assessment and Plan (Free Text) Assessment: 78-year-old female with a past medical history of COPD, previous breast cancer, acute kidney injury, COPD, CAD status post CABG, DJD, T5 compression fracture who presents for complaints of worsening shortness of breath. Heme Onc consulted for breast cancer history and anemia. Patient is s/p 2U of blood and B12 administration. Anemia etiology is unclear, but patient states she has had it "since she can remember," and medical record review reveals previous blood transfusions. Of note, patient's Onc Recurrence score was 30, as obtained from EMR. Patient should have received radiation therapy after chemo, but patient's medical complications (e.g. kyphoplasty) posed as an obstacle to this treatment within the normal 4 month window. 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 # Acute COPD exacerbation # CAD status post CABG # Hypertension # Hyperlipidemia # Neuropathy # Macrocytic anemia #Anxiety # Sacral decubiti # Hypokalemia - resolved # Bed bound # Breast CA Plan - Noted Type and cross, peripheral smear, Vit B12 and Folate, and Iron studies f rom primary - agree - Will follow up with patient in clinic to assess the need now of Tamoxifen and Antiplatelet therapy (hesitation is due to patient's chronic anemia) <Manjula Pardo P - Last Filed: 12/27/18 19:40> Objective - Vital Signs/Intake and Output Vital Signs (last 24 hours): Temp Pulse Resp BP Pulse Ox 98.5 F 83 20 115/70 100 12/26/18 13:52 12/26/18 13:52 12/26/18 13:52 12/26/18 13:52 12/26/18 13:52 - Labs Labs: 12/26/18 07:00 12/26/18 07:00 PT 10.8 SECONDS (9.4-12.5) 12/19/18 14:50 INR 0.97 12/19/18 14:50 APTT 33.9 Seconds (26.9-38.3) 12/19/18 14:50 Attending/Attestation - Attestation I have personally seen and examined this patient.: Yes I have fully participated in the care of the patient.: Yes I have reviewed all pertinent clinical information, including history, physical exam and plan: Yes
== END 2018-12-26 16:26 | DRG 190 ==
LOC: ED 13:40 → ERH 17:06 → 2RSO 18:52 → 5RSO 12-22 10:45
PROVIDERS: ADMIT Internal Medicine Nephrology; ATTEND Internal Medicine Nephrology
PROC: 3E0F7GC Introduction of Other Therapeutic Substance into Respiratory Tract, Via Natural or Artificial Opening (ICD-10-PCS; 2018-12-19)
PROC: 0JPT3XZ Removal of Tunneled Vascular Access Device from Trunk Subcutaneous Tissue and Fascia, Percutaneous Approach (ICD-10-PCS; principal; 2018-12-26)
PROC: 05PYX3Z Removal of Infusion Device from Upper Vein, External Approach (ICD-10-PCS; 2018-12-26)
DX: J44.1 Chronic obstructive pulmonary disease with (acute) exacerbation (principal); L89.153 Pressure ulcer of sacral region, stage 3; C79.9 Secondary malignant neoplasm of unspecified site; L97.409 Non-pressure chronic ulcer of unspecified heel and midfoot with unspecified severity; M48.54XA Collapsed vertebra, not elsewhere classified, thoracic region, initial encounter for fracture; J44.0 Chronic obstructive pulmonary disease with (acute) lower respiratory infection; I25.10 Atherosclerotic heart disease of native coronary artery without angina pectoris; C50.919 Malignant neoplasm of unspecified site of unspecified female breast; J20.9 Acute bronchitis, unspecified; I27.20 Pulmonary hypertension, unspecified; G62.9 Polyneuropathy, unspecified; K44.9 Diaphragmatic hernia without obstruction or gangrene; E78.5 Hyperlipidemia, unspecified; F41.9 Anxiety disorder, unspecified; I11.0 Hypertensive heart disease with heart failure; I50.9 Heart failure, unspecified; E87.6 Hypokalemia; D53.9 Nutritional anemia, unspecified; E53.8 Deficiency of other specified B group vitamins; F32.9 Major depressive disorder, single episode, unspecified; K29.50 Unspecified chronic gastritis without bleeding; K64.8 Other hemorrhoids; Z93.1 Gastrostomy status; Z74.01 Bed confinement status; Z79.899 Other long term (current) drug therapy; Z79.51 Long term (current) use of inhaled steroids; Z95.1 Presence of aortocoronary bypass graft; Z87.01 Personal history of pneumonia (recurrent); Z90.49 Acquired absence of other specified parts of digestive tract; Z86.010 Personal history of colon polyps; Z87.891 Personal history of nicotine dependence